=== PATIENT | female | born 1955 | race Caucasian/White ===

== ENCOUNTER → 2017-07-04 08:02 | Outpatient (CLI) | payer OTHER, SELFPAY ==
--- NOTE | 2017-07-04 10:58 | PFTCOMP ---
COMPLETE PULMONARY FUNCTION TEST INTERPRETATION Brief HPI: Patient is a 62 year old female, currently under the care of myself, who presents to [facility] for complete pulmonary function tests secondary to diagnosis of sarcoidosis. Respiratory therapist reports good effort and reproducible results. Interpretation: Forced expiration spirometry shows no large airways obstructive ventilatory defect with an FEV1 of 80% predicted. There is no significant bronchodilator response by ATS criteria. Spirograms are of good quality and plateau normally. The respiratory flow volume loop shows a normal pattern. Lung volumes by body plethysmography show a normal total lung capacity at 8.44 L, 82% predicted. All other lung volumes are within normal limits. Diffusion capacity by carbon monoxide is at the lower limit of normal at 66% predicted. The airway resistance is normal. No previous pulmonary function tests were available for review. Impression: Grossly normal pulmonary function tests, but lung volumes and diffusing capacity are at the lower limit of normal and should likely be followed serially.
--- NOTE | 2017-07-04 11:01 | PFTCOMP_ITS ---
COMPLETE PULMONARY FUNCTION TEST INTERPRETATION Brief HPI: Patient is a 62 year old female, currently under the care of myself, who presents to [facility] for complete pulmonary function tests secondary to diagnosis of sarcoidosis. Respiratory therapist reports good effort and reproducible results. Interpretation: Forced expiration spirometry shows no large airways obstructive ventilatory defect with an FEV1 of 80% predicted. There is no significant bronchodilator response by ATS criteria. Spirograms are of good quality and plateau normally. The respiratory flow volume loop shows a normal pattern. Lung volumes by body plethysmography show a normal total lung capacity at 8.44 L , 82% predicted. All other lung volumes are within normal limits. Diffusion capacity by carbon monoxide is at the lower limit of normal at 66% predicted. The airway resistance is normal. No previous pulmonary function tests were available for review. Impression: Grossly normal pulmonary function tests, but lung volumes and diffusing capacity are at the lower limit of normal and should likely be followed serially.
== END ==
PROVIDERS: Family Provider Family Medicine; PCP Family Medicine; Visit Provider Internal Medicine Critical Care Medicine
DX: D86.0 Sarcoidosis of lung (principal); M05.79 Rheumatoid arthritis with rheumatoid factor of multiple sites without organ or systems involvement
CPT/HCPCS: 94060; 94726; 94729

== ENCOUNTER → 2017-07-24 08:01 | Outpatient (CLI) | payer OTHER, SELFPAY ==
--- NOTE | 2017-07-24 | BI_ITS ---
MAMMOGRAPHY - UNILATERAL SCREENING: LEFT BREAST REASON FOR EXAM: Female, 62 years old. Routine annual screening examination (unilateral). PERTINENT HISTORY: Personal history of breast cancer. Prior right mastectomy and radiation treatment. TECHNIQUE: Digital unilateral breast aysha (3D mammographic acquisition) in the CC and MLO projections. 2-D mediolateral oblique (MLO) and craniocaudad (CC) views of both breasts were obtained. CAD: Full Field Digital Mammography with Computer Added Detection was performed. COMPARISON: Comparison is made with prior study dated May 15, 2016 and May 15, 2015. FINDINGS: Breast Composition: There are scattered areas of fibroglandular density. There are no dominant masses or suspicious calcifications. No other significant abnormalities are identified. There has been no significant change since the prior study. BI/UNILAT LT SCRN W/CAD IMPRESSION: Stable unilateral screening mammogram. Yearly follow-up mammogram recommended. (A) ASSESSMENT CATEGORY: BIRADS Category 1: Negative. A letter regarding these results will be sent to the patient by the facility within 30 days. Approximately 10% of breast cancers are not detected by mammography. A normal mammogram should not delay biopsy of a clinically suspicious abnormality. [id number] Electronically Signed: Luis Miguel Gustafson MD at 9:26 EDT Tel [phone], Service support ,
== END ==
PROVIDERS: Family Provider Family Medicine; PCP Family Medicine; Visit Provider Family Medicine
DX: Z01.419 Encounter for gynecological examination (general) (routine) without abnormal findings (principal); Z12.31 Encounter for screening mammogram for malignant neoplasm of breast
CPT/HCPCS: 77061; 77063; 77067; G0279

== ENCOUNTER → 2017-08-01 09:58 | Outpatient (CLI) | payer OTHER, SELFPAY ==
[2017-08-01 13:13] LABS: T4 Total, Thyroxin 9.8 ug/dL (4.8-13.9); Thyroid Stim Hormone (TSH) 3.59 uIU/mL (0.358-3.74)
== END ==
PROVIDERS: Family Provider Family Medicine; PCP Family Medicine; Visit Provider Family Medicine
DX: E03.9 Hypothyroidism, unspecified (principal)
CPT/HCPCS: 36415; 84436; 84443

== ENCOUNTER → 2017-12-08 16:48 | Outpatient (CLI) | payer OTHER, SELFPAY ==
--- NOTE | 2017-12-08 16:53 | RAD_ITS ---
STUDY: X-RAY CHEST REASON FOR EXAM: Female, 62 years old. Chest pain, sarcoid TECHNIQUE: Frontal and lateral views of the chest were obtained. COMPARISON: May 23, 2016 FINDINGS: The lungs are underaerated. There are no focal airspace opacities. There is no demonstrated pleural abnormality. The cardiac silhouette is normal in size allowing for low volume inspiration. The mediastinum and hilar regions are unremarkable. Normal visualized pulmonary arteries. There is atherosclerotic calcification of the thoracic aorta. There are diffuse degenerative changes of the visualized spine. There is dextroscoliosis of the thoracic spine. The visualized ribs, clavicles, and shoulders are unremarkable. There are surgical clips again seen in the right upper abdomen. Surgical clips are again seen over the right lower chest. RAD/Chest PA and Lateral IMPRESSION: No acute cardiopulmonary abnormalities. Electronically Signed: Terri Wong MD at 0:13 EDT Tel Direct: [phone], Service support ,
[2017-12-08 17:34] LABS: Absolute Lymphocyte Count 0.79 X10^3/ul (0.83-4.51); Absolute Neutrophil Count 3.2 X10^3/uL (2.0-7.7); Basophil# 0.03 X10^3/uL; Basophil% 0.6 % (0-1); Eosinophil# 0.07 X10^3/uL; Eosinophils% 1.5 % (0-5); Hematocrit 41.5 % (37-47); Hemoglobin 13.2 g/dl (12.0-15.0); Lymphocyte # 0.79 X10^3/ul (4.0); Lymphocyte % 17.1 % (19-41); Mean Corp Hgb Conc 31.8 g/gl (32-36); Mean Corpuscular Hgb 29.8 pg (27.0-32.0); Mean Corpuscular Volume 93.7 fL (81-99); Mean Platelet Vol. 9.3 fl (6.2-12.0); Monocyte# 0.49 X10^3/uL; Monocyte% 10.6 % (0-10); Neutrophil # 3.24 X10^3/uL (2.7-7.7); Platelet Count 198 K/mm3 (150-450); RBC Distribution Width CV 12.9 % (11.6-14.6); RBC Distribution Width SD 44.1 fl (35.1-43.9); Red Blood Count 4.43 M/mm3 (4.2-5.4); White Blood Count 4.6 K/mm3 (4.4-11.0)
[2017-12-08 17:37] LABS: POSITIVE COUNT NO; POSITIVE DIFFERENTIAL NO; POSITIVE MORPHOLOGY NO
[2017-12-08 17:51] LABS: Erythrocyte Sedimentation Rate 29 mm/hr (0-30)
[2017-12-08 18:41] LABS: ALB/GLOB Ratio 0.9 RATIO (0.9-2.4); AST(SGOT) 29 U/L (15-37); Alanine Aminotransfer ALT/SGPT 28 U/L (13-56); Albumin, Serum 3.5 g/dL (3.2-5.0); Alkaline Phosphatase 89 U/L (45-117); Anion Gap 7 (5-15); BUN 16 mg/dL (7-18); BUN/Creat Ratio 23.5 RATIO (10-20); CRP < 2.90 mg/L (0.0-3.0); Calcium,Total 8.6 mg/dL (8.5-10.1); Chloride 103 mmol/L (98-107); Creatinine, Serum 0.68 mg/dL (0.55-1.02); EST Glomerular Filtration Rate 93 mL/min (>60); Est Glom Filt Rate - Afr Amer 112 mL/min (>60); Glucose 95 mg/dL (74-106); Potassium 4.5 mmol/L (3.5-5.1); Protein, Total 7.5 g/dL (6.4-8.2); Sodium Level 137 mmol/L (136-145)
== END ==
PROVIDERS: Family Provider Family Medicine; PCP Family Medicine; Referring Provider Family Medicine; Visit Provider Family Medicine
DX: D86.9 Sarcoidosis, unspecified (principal)
CPT/HCPCS: 36415; 71046; 80053; 84443; 85025; 85652; 86140

== ENCOUNTER → 2018-02-11 11:24 | Outpatient (CLI) | payer OTHER, SELFPAY ==
--- NOTE | 2018-02-11 11:41 | BD_ITS ---
STUDY: DUAL ENERGY X-RAY ABSORPTIOMETRY / DXA REASON FOR EXAM: Female, 62 years old. Early menopause. Loss of height. TECHNIQUE: Bone Mineral Density (BMD) measurements of lumbar spine and bilateral hips were obtained. COMPARISON: Comparison is made with prior study dated January 23, 2016. FINDINGS: Lumbar Spine (L1-L4): g/cm2 (1.091) / T-score (-0.9) / Z-score (0.5) Findings are suggestive of normal bone density with a low fracture risk. Increased thoracic kyphosis. Left Femur Total: g/cm2 (0.778) / T-score (-1.8) / Z-score (-0.8) Left Femoral Neck: g/cm2 (0.746) / T-score (-2.1) / Z-score (-0.8) Right Femur Total: g/cm2 (0.791) / T-score (-1.7) / Z-score (-0.7) Right Femoral Neck: g/cm2 (0.733) / T-score (-2.2) / Z-score (-0.8) The T-Scores on the most recent prior examination were: Lumbar Spine (L1-L4): There has been improvement of bone density since the previous examination. Left Femur Total: which represents an improvement of 7.8%. Right Femur Total: which represents an improvement of 11.4%. BD/Dexa Bone Density Study IMPRESSION: The patient is considered osteopenic as outlined below according to World Juan Organization (WHO) criteria with a moderate fracture risk. There has been improvement of bone density since the previous examination. Reference Information: The T-score is the number of standard deviations above or below the standard which is normal for young adults at their peak bone mineral density. The World Health Organization (WHO) interprets the T-scores as follows: Above -1 Normal bone density Between -1 and -2.5 Osteopenia Equal to / or below -2.5 Osteoporosis As a practical clinical guideline, osteopenia may be graded as follows: Mild -1 through -1.5 Moderate -1.6 through -2.0 Severe -2.1 through -2.4 The Z-score is the number of standard deviations above or below age-matched controls. A Z-score of less than -1.5 would be considered abnormal. References: 1. NIH Osteoporosis and Related Bone Diseases http://www.osteo.org 2. International Society for Clinical Densitometry http://www.iscd.org 3. National Osteoporosis Foundation http://www.nof.org Electronically Signed: Luis Miguel Gustafson MD at 8:59 EST Tel [phone], Service support ,
--- OUTSIDE RECORDS SUMMARY | 2018-03-30 14:24 | XMS RPT_ITS ---
:1955 Author Organization OHIP Support Name Relationship Address Phone COW Unavailable [address] + [place] [address] ELIZONDO, ERVIL Unavailable [address] + [place] [address] ELIZONDO, CHUCK Unavailable Unavailable + COW Unavailable [address] + [place] [address] ELIZONDO, ERVIL Unavailable [address] + [place] [address] ELIZONDO, CHUCK Unavailable . + [place] [address] COW Unavailable [address] + [place] [address] ELIZONDO, ERVIL Unavailable [address] + [place] [address] ELIZONDO, CHUCK Unavailable Unavailable + [place] [address] + [place] [address] ELIZONDO, ERVIL Unavailable [address] + [place] [address] ELIZONDO, CHUCK Unavailable [address] + [place] [address] + [place] [address] ELIZONDO, ERVIL Unavailable [address] + [place] [address] ELIZONDO, CHUCK Unavailable [address] + [place] [address] + [place] [address] ELIZONDO, ERVIL Unavailable [address] + [place] [address] ELIZONDO, CHUCK Unavailable [address] + [place] [address] + [place] [address] ELIZONDO, ERVIL Unavailable [address] + [place] [address] ELIZONDO, CHUCK Unavailable [address] + [place] [address] + [place] [address] ELIZONDO, ERVIL Unavailable [address] + [place] [address] ELIZONDO, CHUCK Unavailable [address] + [place] [address] + [place] [address] ELIZONDO, ERVIL Unavailable [address] + [place] [address] ELIZONDO, CHUCK Unavailable [address] + [place] [address] Care Team Providers Name Role Phone KARINA DE LEON Referring Unavailable KARINA DE LEON Referring Unavailable AL ZAYAS (PA) Referring Unavailable MARYJANE BOWER (CRYPTOLOGIC SUPERVISOR) Referring Unavailable KARINA DE LEON Referring Unavailable KARINA DE LEON Referring Unavailable KARINA DE LEON Referring Unavailable KARINA DE LEON Referring Unavailable KARINA DE LEON Attending Unavailable KARINA DE LEON Referring Unavailable MARYJANE BOWER (CRYPTOLOGIC SUPERVISOR) Referring Unavailable HEMA BARRAZA (PA) Referring Unavailable KARINA DE LEON Attending Unavailable KARINA DE LEON Referring Unavailable MARYJANE BOWER (CRYPTOLOGIC SUPERVISOR) Attending Unavailable KAT MILTON (PT) Attending Unavailable KARINA DE LEON Referring Unavailable KARINA DE LEON Referring Unavailable MARYJANE BOWER (CRYPTOLOGIC SUPERVISOR) Referring Unavailable KARINA DE LEON Referring Unavailable KAT MILTON (PT) Attending Unavailable KARINA DE LEON Referring Unavailable LEMON, KAT (PT) Attending Unavailable HALEY, KARINA Nieto Referring Unavailable LEMON, KAT (PT) Attending Unavailable HALEY, KARINA Nieto Referring Unavailable HALEY, KARINA Nieto Referring Unavailable LEMON, KAT (PT) Attending Unavailable HALEY, KARINA Nieto Referring Unavailable LEMON, KAT (PT) Attending Unavailable HALEYKARINA MUNIZ Referring Unavailable JORGE MARTINEZ Referring Unavailable JORGE MARTINEZ Attending Unavailable HALEYKARINA MUNIZ Referring Unavailable MARYJANE BOWER (CRYPTOLOGIC SUPERVISOR) Referring Unavailable HALEY, KARINA Nieto Referring Unavailable MARTINEZ, JORGE Referring Unavailable HALEY, KARINA Nieto Referring Unavailable HALEY, KARINA Nieto Referring Unavailable HALEY, KARINA Nieto Referring Unavailable IRENE DE PAZ (PA) Attending Unavailable JORGE MARTINEZ Referring Unavailable LEMON, KAT (PT) Attending Unavailable HALEYKARINA Referring Unavailable LEMON, KAT (PT) Attending Unavailable HALEYKARINA MUNIZ Referring Unavailable LEMON, KAT (PT) Attending Unavailable HALEYKARINA Referring Unavailable LEMON, KAT (PT) Attending Unavailable HALEY, KARINA Nieto Referring Unavailable HALEY, KARINA Nieto Referring Unavailable LEMON, KAT (PT) Attending Unavailable HALEYKARINA Referring Unavailable HALEY, KARINA Nieto Referring Unavailable HALEY, KARINA Nieto Attending Unavailable HALEYKARINA Referring Unavailable LEMON, KAT (PT) Attending Unavailable HALEYKARINA Referring Unavailable LEMON, KAT (PT) Attending Unavailable HALEYKARINA DE LEON Referring Unavailable JORGE MARTINEZ Attending Unavailable JORGE MARTINEZ Referring Unavailable JORGE MARTINEZ Referring Unavailable LEMON, KAT (PT) Attending Unavailable HALEYKARINA Referring Unavailable LEMON, KAT (PT) Attending Unavailable HALEYKARINA MUNIZ Referring Unavailable LEMON, KAT (PT) Attending Unavailable HALEYKARINA DE LEON Referring Unavailable BRANDON MACIAS Attending Unavailable LEMON, KAT (PT) Attending Unavailable HALEYKARINA Referring Unavailable MARYJANE BOWER (CRYPTOLOGIC SUPERVISOR) Referring Unavailable CHUCK HUNTER Attending Unavailable MARYJANE BOWER (CRYPTOLOGIC SUPERVISOR) Referring Unavailable LEMON, KAT (PT) Attending Unavailable HALEYKARINA MUNIZ Referring Unavailable LEMON, KAT (PT) Attending Unavailable HALEY, KARINA J Referring Unavailable LEMON, KAT (PT) Attending Unavailable HALEY, KARINA J Referring Unavailable LEMON, KAT (PT) Attending Unavailable HALEY, KARINA J Referring Unavailable LEMON, KAT (PT) Attending Unavailable HALEYKARINA J Referring Unavailable LEMON, KAT (PT) Attending Unavailable HALEY, KARINA J Referring Unavailable LEMON, KAT (PT) Attending Unavailable HALEY, KARINA J Referring Unavailable LEMON, KAT (PT) Attending Unavailable HALEY, KARINA J Referring Unavailable LEMON, KAT (PT) Attending Unavailable HALEY, KARINA J Referring Unavailable HALEY, KARINA J Referring Unavailable HALEY, KARINA J Referring Unavailable HALEY, KARINA J Referring Unavailable HALEY, KARINA J Referring Unavailable MARYJANE BOWER (CRYPTOLOGIC SUPERVISOR) Referring Unavailable HALEY, KARINA J Referring Unavailable LEMON, KAT (PT) Attending Unavailable HALEYKARINA DE LEON Referring Unavailable MARYJANE BOWER (CRYPTOLOGIC SUPERVISOR) Attending Unavailable CHUCK HUNTER Referring Unavailable MARYJANE BOWER (CRYPTOLOGIC SUPERVISOR) Referring Unavailable LEMON, KAT (PT) Attending Unavailable HALEYKARINA J Referring Unavailable LEMON, KAT (PT) Attending Unavailable HALEYKARINA DE LEON J Referring Unavailable LEMON, KAT (PT) Attending Unavailable HALEYKAIRNA DE LEON Referring Unavailable BRANDON MACIAS Attending Unavailable HALEY, KARINA J Referring Unavailable HALEY, KARINA Nieto Referring Unavailable LEMON, KAT (PT) Attending Unavailable HALEYKARINA DE LEON J Referring Unavailable MARYJANE BOWER (CRYPTOLOGIC SUPERVISOR) Attending Unavailable JORGE MARTINEZ Admitting Unavailable JORGE MARTINEZ Attending Unavailable MARYJANE BOWER (CRYPTOLOGIC SUPERVISOR) Referring Unavailable Donnell Valdivia Attending Unavailable Jolliff, Elisa Referring Unavailable Jolliff, Elisa Primary Care Unavailable Donnell Valdivia Attending Unavailable Skip, Donnell Referring Unavailable Jolliff, Elisa Primary Care Unavailable SkipDonnell pendleton Attending Unavailable Jolliff, Elisa Attending Unavailable Jolliff, Elisa Referring Unavailable Jolliff, Elisa Primary Care Unavailable Jolliff, Elisa Attending Unavailable Jolliff, Elisa Primary Care Unavailable SkipDonnell pendleton Attending Unavailable Jolliff, Elisa Referring Unavailable Jolliff, Elisa Attending Unavailable Jolliff, Elisa Referring Unavailable Jolliff, Elisa Primary Care Unavailable SkipDonnell pendleton Attending Unavailable Elisa Baxter Referring Unavailable Elisa Baxter Attending Unavailable Elisa Baxter Primary Care Unavailable Elisa Baxter Referring Unavailable PROBLEMS PROBLEMS DATE TYPE CONDITION / CODE ATTENDING STATUS SOURCE 12/08/2017 Unknown D86.9 - Sarcoidosis, Elisa Baxter Active [facility] unspecified / Community D86.9(ICD-10) Hospital Repository 09/05/2017 Active Primary NA Active [facility]oarthritis, [facility] Main right hand / [place] M19.041(ICD-10) Repository 10/16/2017 Active Other specified NA Active [facility] postprocedural [facility] Main states / [place] Z98.890(ICD-10) Repository 08/25/2017 Active Pain in right JORGE MARTINEZ Active [facility] finger(s) / Clinic Other M79.644(ICD-10) [place] Repository 08/25/2017 Active Pain in right hand / NA Active [facility] M79.641(ICD-10) Clinic Main [place] Repository 08/25/2017 Active Pain in left hand / NA Active [facility] M79.642(ICD-10) Clinic Main [place] Repository 07/09/2017 Unknown D86.0 - Sarcoidosis SkipDonnell pendleton Active [facility] of lung / Community D86.0(ICD-10) Hospital Repository 07/02/2017 Active Pain in left ankle NA Active [facility] and joints of left Clinic Main foot / [place] M25.572(ICD-10) Repository 05/29/2017 Unknown M05.79 - Rheumatoid SkipDonnell pendleton Active [place] arthritis with Community rheumatoid factor of Hospital multiple sites Repository without organ or systems involvement / M05.79(ICD-10) 05/21/2017 Active Post-traumatic NA Active [facility]oarthritis, left Clinic Main ankle and foot / [place] M19.172(ICD-10) Repository 04/28/2017 Active Rheumatoid arthritis NA Active [facility] without rheumatoid Clinic Main factor, multiple [place] sites / Repository M06.09(ICD-10) 01/08/2017 Active Primary NA Active [facility] osteoarthritis, Clinic Main unspecified ankle [place] and foot / Repository M19.079(ICD-10) 04/11/2017 Active Unknown / NA Active [facility] UNK(Unknown) [facility] Main [place] Repository PROCEDURES PROCEDURES No Procedure Records FoundRESULTS RESULTS PROGRESS Observed: 03/13/2018 Status: COMPLETED Source: [place] 9:13 AM CLINIC OTHER CAMPUS REPOSITORY HNO ID: [id number] Author: Lilian Briggs Service: (none) Author Type: Occupational Therapist Type: Progress Notes Filed: 03/13/2018 11:55 AM Note Text: [facility] PHYSICAL CAPACITY EVALUATION Renae Elizondo [id number] 03/13/2018 Staff Command And Control Officer: SHARDA Ladd Referring Physician: Maryjane Bower (Produce Department Supervisor), * DIAGNOSIS: Rheumatoid arthritis of multiple sites with negative rheumatoid factor (hcc) (primary encounter diagnosis) PURPOSE OF THIS EVALUATION : This evaluation was designed to Assist physician in making recommendations regarding client's application for disability. The client was instructed in the purpose and contents of the evaluation before testing. The client was informed of her ability and responsibility to modify, limit, or refuse any part of the evaluation. Functional Capacity Evaluation completed today. See scanned document tab for complete detailed report. Summary cover letter included below. Education: Learning preferences: Explanation and Demonstration Barriers: No barriers Learning/educational needs: test instructions Education Provided: See Treatment Below Audience: Patient Method of education: Explanation and Demonstration Response: Applied knowledge and Demonstrated skill Billing: Luigi Valdez: Physical Capacity Evaluation ([id number]): 1:1 time 145 minutes (10 units: 143-157 mins) Total time: 145 minutes SHARDA Ladd CNTHERAPY Observed: 03/13/2018 Status: COMPLETED Source: [place] 9:00 AM [facility] REPOSITORY OT/PT/Speech Visit (OTSPO) RENAE ELIZONDO ([id number]) 1955 F Date Time Provider Department 03/13/18 9:00 AM LILIAN BRIGGS OT Date Time Provider Department Center 03/13/2018 9:00 AM [id number] BRIGGS *OTSPO [facility] Reason for Visit: Functional Capacity Eval [3549] Primary Visit Diagnosis:Rheumatoid arthritis of multiple sites with negative rheumatoid factor ([facility]) [M06.09] Allergies As of Date: 03/13/2018 Noted Allergy Reaction ADHESIVE TAPE (ROSINS) 02/13/2006 2 - Rash Comments: tore skin/blisters MORPHINE 02/05/2006 5 - Intolerance Comments: vomiting, shaking. NSAIDS (NON-STEROIDAL ANTI-INFLAM*10/05/2014 11 - Vomiting VASOTEC (ENALAPRIL MALEATE) 09/08/2008 Comments: nausea/doesn't work Date Reviewed: 03/05/2018 Reviewed by: Marie Ricardo Ma - Fully Assessed Prescriptions as of 03/13/2018 Sig: CYCLOBENZAPRINE 10 MG TABLET Take 1 tablet by mouth twice * METHYLPREDNISOLONE 4 MG TABLE* Take 1 tablet by mouth as dir* LEVOTHYROXINE 75 MCG TABLET Take 1 tablet by mouth daily * LEFLUNOMIDE 20 MG TABLET Take 1 tablet by mouth once d* HYDROXYCHLOROQUINE 200 MG TAB* Take 1 tablet by mouth twice * DICLOFENAC 1 % TOPICAL GEL apply topically 4 grams to fo* CHOLECALCIFEROL (VITAMIN D3) * Take 2,000 Units by mouth onc* PROLIA SUBCUTANEOUS Inject subcutaneously once e* CELECOXIB 200 MG CAPSULE Take 200 mg by mouth as neede* MAGNESIUM OXIDE 500 MG TABLET Taking 250mg. Take two tablet* ACETAMINOPHEN 500 MG TABLET Take 500 mg by mouth every 8 * CPAP CHIN STRAP, USED WITH CPAP DE* FLUTICASONE 50 MCG/ACTUATION * Use 1 [place] in each nostril d* FERROUS SULFATE 325 MG (65 MG* Take 325 mg by mouth daily wi* ASCORBIC ACID (VITAMIN C) 500* Take 500 mg by mouth three ti* CPAP AutoPAP 10-20 cmH2O, suitable* CYCLOBENZAPRINE 10 MG TABLET CLOBETASOL 0.05 % TOPICAL CRE* as directed * GABAPENTIN 300 MG CAPSULE Take 300 mg by mouth three ti* * PROMETHAZINE 25 MG TABLET Take one(1) tablet every four* * ATIVAN 1 MG TABLET takes 1/2 tab as needed * FENTANYL 50 MCG/HR TRANSDERMA* Apply as directed. Change pat* * B COMPLEX 1 TABLET Take one(1) tablet daily. * MULTIVITAMIN,TX-MINERALS TABL* 1 tab daily Progress Notes: Lilian Briggs OTR/L 03/13/2018 11:55 AM Signed [facility] PHYSICAL CAPACITY EVALUATION Renae Elizondo [id number] 03/13/2018 Staff Command And Control Officer: SHARDA Ladd Referring Physician: Maryjane Bower (Angel), * DIAGNOSIS: Rheumatoid arthritis of multiple sites with negative rheumatoid factor (hcc) (primary encounter diagnosis) PURPOSE OF THIS EVALUATION : This evaluation was designed to Assist physician in making recommendations regarding client's application for disability. The client was instructed in the purpose and contents of the evaluation before testing. The client was informed of her ability and responsibility to modify, limit, or refuse any part of the evaluation. Functional Capacity Evaluation completed today. See scanned document tab for complete detailed report. Summary cover letter included below. Education: Learning preferences: Explanation and Demonstration Barriers: No barriers Learning/educational needs: test instructions Education Provided: See Treatment Below Audience: Patient Method of education: Explanation and Demonstration Response: Applied knowledge and Demonstrated skill Billing: Luigi Valdez: Physical Capacity Evaluation ([id number]): 1:1 time 145 minutes (10 units: 143-157 mins) Total time: 145 minutes SHARDA Ladd PROGRESS Observed: 03/05/2018 Status: COMPLETED Source: [place] 4:31 PM [facility] [place] REPOSITORY O ID: [id number] Author: Maryjane Peña (Angel) Sathish Service: (none) Author Type: Nurse Practitioner Type: Progress Notes Filed: 03/06/2018 8:39 AM Note Text: CC: SAME DAY APPOINTMENT FOR BACK PAIN March 05, [address] Hunter Prior Pertinent History Pulmonary sacroid-> Abnormal CT Chest with Multiple Scattered Nodules seen on the right lung on CT Chest September 16, 2014 Received steroids at that time. Complicated by -> Hx of poorly differentiated ductal carcinoma of the right breast diagnosed in January 2006 s/p Right Modified Radical mastectomy August 27, 2006 s/p neoadjuvant chemotherapy AND RT to chest wall and axilla 12/01/06. Sacroid, (known prior). Arava was initiated 01/2016 jnt pain. 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 Ankle surgery done-> left TN fusion 02/17/2017 DDD 01/2017 we did her x rays-> IMPRESSION: Diffuse thoracic spondylosis, dorsolumbar spondylosis, ?with moderate thoracic kyphosis. ?Multilevel lumbar degenerative facet arthritis with 6 mm degenerative spondylolisthesis of L4 and 3 mm degenerative spondylolisthesis of L5 Bone health- Treatment prolia (not by Rheum), DXA ordered in 2015 (none prior) The prolia is given by her PCP.She had the DXA done last year by PCP and was told + osteoporosis. Takes a calcium supplement and Mag supplements. Treatment Arava 20 mg/d + Plaquenil 200 mg BID. Reason for visit today is acute back pain-> here today for same day appointment for neck and shoulder pain, ongoing since 02/23- has tried heat and stretching without much benefit. she has tried tylenol, can't take nsaids due to GI upset. not on flexeril or steroids having some tingling of fingertips on the right side was very active over the holidays and feels she overdid it. Medications Current Outpatient Prescriptions: levothyroxine (SYNTHROID) 75 mcg tablet Take 1 tablet by mouth daily before breakfast. leflunomide (ARAVA) 20 mg tablet Take 1 tablet by mouth once daily. hydroxychloroquine (PLAQUENIL) 200 mg tablet Take 1 tablet by mouth twice daily. diclofenac sodium (VOLTAREN) 1 % topical gel apply topically 4 grams to foot four times a day cholecalciferol (VITAMIN D-3) 2,000 unit tablet Take 2,000 Units by mouth once daily. DENOSUMAB (PROLIA SUBCUTANEOUS) Inject subcutaneously once every 6 months. celecoxib (CELEBREX) 200 mg capsule Take 200 mg by mouth as needed. Magnesium Oxide 500 mg tab Taking 250mg. Take two tablets by mouth once daily. acetaminophen (TYLENOL EXTRA STRENGTH) 500 mg tablet Take 500 mg by mouth every 8 hours as needed. CPAP CHIN STRAP, USED WITH CPAP DEVICE fluticasone (FLONASE) 50 mcg/actuation nasal spray Use 1 [place] in each nostril daily at bedtime. ferrous sulfate 325 mg (65 mg iron) tablet Take 325 mg by mouth daily with breakfast. ascorbic acid (VITAMIN C) 500 mg tablet Take 500 mg by mouth three times daily. CPAP AutoPAP 10-20 cmH2O, suitable mask, humidity, filters. Lifetime supplies. Dx: 327.23. Fax compliance rpt to [phone] in 4-6 weeks. cyclobenzaprine (FLEXERIL) 10 mg tablet CLOBETASOL 0.05 % cream as directed gabapentin 300 mg capsule Take 300 mg by mouth three times daily. PROMETHAZINE 25 MG TAB Take one(1) tablet every four(4) to six(6) hours as needed for nausea. lorazepam(ATIVAN 1 MG TAB) takes 1/2 tab as needed fentanyl 50 mcg/hr TRANSDERM. PT72 Apply as directed. Change patch every 3 days. B COMPLEX 1 TAB Take one(1) tablet daily. MULTIVITAMIN,TX-MINERALS TAB 1 tab daily No current facility-administered medications for this visit. REVIEW OF SYSTEMS: March 05, 2018 CONSTITUTIONAL: Fever: No Fatigue: Yes Pain: Yes EYES: Pain: Yes Redness: No Loss of vision: No Dryness: Yes EAR, NOSE, MOUTH, THROAT: Nose bleeds: No Hearing loss: No Sores in mouth: No Swallowing problems: Yes Dry mouth: Yes CARDIOVASCULAR: Chest pain: No Swelling in the feet or legs: Yes RESPIRATORY: Shortness of breath: No Pain with breathing: No Chronic cough: No Coughing up blood: No , GASTROINTESTINAL: Heartburn: No Nausea: Yes Diarrhea: Yes Blood in the stool or black stool: No Abdominal pain: Yes GENITOURINARY: Blood in urine: No Pain or burning on urination: No] MUSCULOSKELETAL: Joint pain: Yes Joint swelling: Yes Morning stiffness in joints: Yes Muscle weakness: Yes Back pain: Yes SKIN: Rashes: No Sun sensitive rashes: Yes Color changes of hands or feet in the cold: Yes Hair loss: Yes Nail changes: No NEUROLOGICAL: Headaches: Yes Dizziness: Yes Numbness or tingling: Yes Memory loss: Yes Seizures: No HEMATOLOGIC/LYMPHATIC: Swollen glands: No Anemia: Yes ALLERGIES/IMMUNOLOGIC: Allergies (other than medications): Yes Increased susceptibility to infection: No KNOWN MEDICAL CONDITIONS: Diabetes: No Thyroid disease: Yes High blood pressure: No Pertinent PFSH: FAMILY HISTORY Problem Relation Age of Onset - Diabetes Mother - Colon Cancer Mother pancreatic cancer - Cancer Mother pancreatic - Colon Cancer Father at age 75 or 76 - Cancer Father - other (Parkinson's disease) Father - Diabetes Brother - Diabetes Paternal Grandmother - Diabetes Maternal Grandmother - Ischemic Heart Disease Maternal Grandfather - Hypertension Sister - Hypertension Brother - Stroke Paternal Grandfather - Allergies Sister - Allergies Brother - Cancer Sister uterine/ lung/ liver - Cancer Brother melanoma/ brain/ tongue PAST MEDICAL HISTORY Diagnosis Date - Anemia - Hypothyroidism - Malignant neoplasm of breast (female), unspecified site - Obstructive sleep apnea - Other and unspecified diseases of upper respiratory tract - RA (rheumatoid arthritis) (HCC) - S/P gastric bypass - Sarcoidosis PAST SURGICAL HISTORY Procedure Laterality Date - APPENDECTOMY 2000 Done with gastric bypass - COLONOSCOP W/ OR W/O BRSH SPEC 12/05/2008,12 Colonoscopy - FUSION FINGER JOINT Right 09/05/2017 Right index and middle fingers DIP joint fusion, Right 5th finger PIP joint fusion - GASTRIC BYPASS-MORBID OBESITY 2000 - MASTECTOMY, MODIFIED RADICAL 08/27/2006 Right MRM - PAST SURGICAL HISTORY OF 2000 venous ligation leg - PAST SURGICAL HISTORY OF Carpal Tunnel - PAST SURGICAL HISTORY OF Left thumb repair - PAST SURGICAL HISTORY OF port acath LEFT - PAST SURGICAL HISTORY OF removal of port - PAST SURGICAL HISTORY OF Left 01/2017 lt 2nd AND 3rd digit repair - OR ANESTH,REPAIR LO ABD HERNIA NOS - OR ANESTH,VAGINAL HYSTERECTOMY 2003 BSO - REMOVAL GALLBLADDER 1993 Cholecystectomy Social History Marital status: Spouse name: Years of education: Number of children: Social History Main Topics Smoking status: Never Smoker Smokeless tobacco: Never Used Alcohol use: Yes Comment: occasionally glass wine or mixed drink Drug use: No Sexual activity: Yes Partners with: Male ) LABS Hemoglobin (g/dL) Date Value 02/09/2018 11.5 Hematocrit (%) Date Value 02/09/2018 37.4 WBC (k/uL) Date Value 02/09/2018 3.96 Glucose (mg/dL) Date Value 02/09/2018 102 Potassium (mmol/L) Date Value 02/09/2018 4.2 Sodium (mmol/L) Date Value 02/09/2018 142 Chloride (mmol/L) Date Value 02/09/2018 103 CO2 (mmol/L) Date Value 02/09/2018 27 Creatinine (mg/dL) Date Value 02/09/2018 0.60 BUN (mg/dL) Date Value 02/09/2018 10 Anion Gap (mmol/L) Date Value 02/09/2018 12 Calcium (mg/dL) Date Value 02/09/2018 9.4 Protein, Total (g/dL) Date Value 02/09/2018 6.9 Albumin (g/dL) Date Value 02/09/2018 3.9 Bilirubin, Total (mg/dL) Date Value 02/09/2018 0.4 Alkaline Phosphatase (U/L) Date Value 02/09/2018 84 AST (U/L) Date Value 02/09/2018 28 ALT (U/L) Date Value 02/09/2018 21 No results found for: WSR No results found for: CRP PHYSICAL EXAM BP 131/80 Pulse 86 Ht 152.4 cm (5') Wt 94.8 kg (209 lb) BMI 40.82 kg/m? Physical Exam: APPEARANCE Well appearing, alert, in no acute distress, well-hydrated, well nourished. EXTREMITIES + lumbar low back pain and tight c spine muscles , OA of hands- some fullness of 1, 2 mcp bilaterally, s/p fusion left hand 3rd digit. Left foot swollen - entire foot- some rom with dorsiflexion, no redness NEURO Awake, alert and oriented x 3, Cranial nerves II-XII grossly intact, Normal gait and No involuntary motions. SKIN Skin color, texture, turgor normal, no suspicious rashes or lesions MEDICAL DECISION MAKING Assessment: (M06.09) Rheumatoid arthritis of multiple sites with negative rheumatoid factor (HCC) (primary encounter diagnosis) Comment: Low back pain/c spine pain Ok for medrol dose pack + 7 days of flexeril Rest Heating pad - She brings with her disability forms that require a functional capacity evaluation- will arrange. Plan: PHYSICAL PERFORMANCE TEST Available laboratories were reviewed with the patient. Radiographs were reviewed at todays visit. PLAN: as noted above 15 minutes spent [id number] with the patient during this office visit during which counseling or coordination of care activities account for more than 50 percent of this office visit. Maryjane Bower RN CREDIT SPECIALIST CNOV Observed: 03/05/2018 Status: COMPLETED Source: [place] 4:10 PM [facility] [place] REPOSITORY Office Visit (RHEMARTINEZW) RENAE ELIZONDO ([id number]) 1955 F Date Time Provider Department 03/05/18 4:10 PM MARYJANE BOWER (CRYPTOLOGIC SUPERVISOR) BRIAN During your visit today, we recorded the following information about you: Pulse Blood pressure Weight Height 86/minute 131/80 94.8 kg 1.524 m Maryjane Bower RN EMPLOYEE BENEFITS DIRECTOR.CREDIT SPECIALIST 03/06/2018 8:39 AM Signed CC: SAME DAY APPOINTMENT FOR BACK PAIN March 05, [address] Hunter Prior Pertinent History Pulmonary sacroid-> Abnormal CT Chest with Multiple Scattered Nodules seen on the right lung on CT Chest September 16, 2014 Received steroids at that time. Complicated by -> Hx of poorly differentiated ductal carcinoma of the right breast diagnosed in January 2006 s/p Right Modified Radical mastectomy August 27, 2006 s/p neoadjuvant chemotherapy AND RT to chest wall and axilla 12/01/06. Sacroid, (known prior). Arava was initiated 01/2016 jnt pain. 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 Ankle surgery done-> left TN fusion 02/17/2017 DDD 01/2017 we did her x rays-> IMPRESSION: Diffuse thoracic spondylosis, dorsolumbar spondylosis, ?with moderate thoracic kyphosis. ?Multilevel lumbar degenerative facet arthritis with 6 mm degenerative spondylolisthesis of L4 and 3 mm degenerative spondylolisthesis of L5 Bone health- Treatment prolia (not by Rheum), DXA ordered in 2016 (none prior) The prolia is given by her PCP.She had the DXA done last year by PCP and was told + osteoporosis. Takes a calcium supplement and Mag supplements. Treatment Arava 20 mg/d + Plaquenil 200 mg BID. Reason for visit today is acute back pain-> here today for same day appointment for neck and shoulder pain, ongoing since 02/23- has tried heat and stretching without much benefit. she has tried tylenol, can't take nsaids due to GI upset. not on flexeril or steroids having some tingling of fingertips on the right side was very active over the holidays and feels she overdid it. Medications Current Outpatient Prescriptions: levothyroxine (SYNTHROID) 75 mcg tablet Take 1 tablet by mouth daily before breakfast. leflunomide (ARAVA) 20 mg tablet Take 1 tablet by mouth once daily. hydroxychloroquine (PLAQUENIL) 200 mg tablet Take 1 tablet by mouth twice daily. diclofenac sodium (VOLTAREN) 1 % topical gel apply topically 4 grams to foot four times a day cholecalciferol (VITAMIN D-3) 2,000 unit tablet Take 2,000 Units by mouth once daily. DENOSUMAB (PROLIA SUBCUTANEOUS) Inject subcutaneously once every 6 months. celecoxib (CELEBREX) 200 mg capsule Take 200 mg by mouth as needed. Magnesium Oxide 500 mg tab Taking 250mg. Take two tablets by mouth once daily. acetaminophen (TYLENOL EXTRA STRENGTH) 500 mg tablet Take 500 mg by mouth every 8 hours as needed. CPAP CHIN STRAP, USED WITH CPAP DEVICE fluticasone (FLONASE) 50 mcg/actuation nasal spray Use 1 [place] in each nostril daily at bedtime. ferrous sulfate 325 mg (65 mg iron) tablet Take 325 mg by mouth daily with breakfast. ascorbic acid (VITAMIN C) 500 mg tablet Take 500 mg by mouth three times daily. CPAP AutoPAP 10-20 cmH2O, suitable mask, humidity, filters. Lifetime supplies. Dx: 327.23. Fax compliance rpt to [phone] in 4-6 weeks. cyclobenzaprine (FLEXERIL) 10 mg tablet CLOBETASOL 0.05 % cream as directed gabapentin 300 mg capsule Take 300 mg by mouth three times daily. PROMETHAZINE 25 MG TAB Take one(1) tablet every four(4) to six(6) hours as needed for nausea. lorazepam(ATIVAN 1 MG TAB) takes 1/2 tab as needed fentanyl 50 mcg/hr TRANSDERM. PT72 Apply as directed. Change patch every 3 days. B COMPLEX 1 TAB Take one(1) tablet daily. MULTIVITAMIN,TX-MINERALS TAB 1 tab daily No current facility-administered medications for this visit. REVIEW OF SYSTEMS: March 05, 2018 CONSTITUTIONAL: Fever: No Fatigue: Yes Pain: Yes EYES: Pain: Yes Redness: No Loss of vision: No Dryness: Yes EAR, NOSE, MOUTH, THROAT: Nose bleeds: No Hearing loss: No Sores in mouth: No Swallowing problems: Yes Dry mouth: Yes CARDIOVASCULAR: Chest pain: No Swelling in the feet or legs: Yes RESPIRATORY: Shortness of breath: No Pain with breathing: No Chronic cough: No Coughing up blood: No , GASTROINTESTINAL: Heartburn: No Nausea: Yes Diarrhea: Yes Blood in the stool or black stool: No Abdominal pain: Yes GENITOURINARY: Blood in urine: No Pain or burning on urination: No] MUSCULOSKELETAL: Joint pain: Yes Joint swelling: Yes Morning stiffness in joints: Yes Muscle weakness: Yes Back pain: Yes SKIN: Rashes: No Sun sensitive rashes: Yes Color changes of hands or feet in the cold: Yes Hair loss: Yes Nail changes: No NEUROLOGICAL: Headaches: Yes Dizziness: Yes Numbness or tingling: Yes Memory loss: Yes Seizures: No HEMATOLOGIC/LYMPHATIC: Swollen glands: No Anemia: Yes ALLERGIES/IMMUNOLOGIC: Allergies (other than medications): Yes Increased susceptibility to infection: No KNOWN MEDICAL CONDITIONS: Diabetes: No Thyroid disease: Yes High blood pressure: No Pertinent PFSH: FAMILY HISTORY Problem Relation Age of Onset - Diabetes Mother - Colon Cancer Mother pancreatic cancer - Cancer Mother pancreatic - Colon Cancer Father at age 75 or 76 - Cancer Father - other (Parkinson's disease) Father - Diabetes Brother - Diabetes Paternal Grandmother - Diabetes Maternal Grandmother - Ischemic Heart Disease Maternal Grandfather - Hypertension Sister - Hypertension Brother - Stroke Paternal Grandfather - Allergies Sister - Allergies Brother - Cancer Sister uterine/ lung/ liver - Cancer Brother melanoma/ brain/ tongue PAST MEDICAL HISTORY Diagnosis Date - Anemia - Hypothyroidism - Malignant neoplasm of breast (female), unspecified site - Obstructive sleep apnea - Other and unspecified diseases of upper respiratory tract - RA (rheumatoid arthritis) (HCC) - S/P gastric bypass - Sarcoidosis PAST SURGICAL HISTORY Procedure Laterality Date - APPENDECTOMY 2000 Done with gastric bypass - COLONOSCOP W/ OR W/O BRSH SPEC 12/05/2008,12 Colonoscopy - FUSION FINGER JOINT Right 09/05/2017 Right index and middle fingers DIP joint fusion, Right 5th finger PIP joint fusion - GASTRIC BYPASS-MORBID OBESITY 2000 - MASTECTOMY, MODIFIED RADICAL 08/27/2006 Right MRM - PAST SURGICAL HISTORY OF 2000 venous ligation leg - PAST SURGICAL HISTORY OF Carpal Tunnel - PAST SURGICAL HISTORY OF Left thumb repair - PAST SURGICAL HISTORY OF port acath LEFT - PAST SURGICAL HISTORY OF removal of port - PAST SURGICAL HISTORY OF Left 01/2017 lt 2nd AND 3rd digit repair - OR ANESTH,REPAIR LO ABD HERNIA NOS - OR ANESTH,VAGINAL HYSTERECTOMY 2003 BSO - REMOVAL GALLBLADDER 1993 Cholecystectomy Social History Marital status: Spouse name: Years of education: Number of children: Social History Main Topics Smoking status: Never Smoker Smokeless tobacco: Never Used Alcohol use: Yes Comment: occasionally glass wine or mixed drink Drug use: No Sexual activity: Yes Partners with: Male ) LABS Hemoglobin (g/dL) Date Value 02/09/2018 11.5 Hematocrit (%) Date Value 02/09/2018 37.4 WBC (k/uL) Date Value 02/09/2018 3.96 Glucose (mg/dL) Date Value 02/09/2018 102 Potassium (mmol/L) Date Value 02/09/2018 4.2 Sodium (mmol/L) Date Value 02/09/2018 142 Chloride (mmol/L) Date Value 02/09/2018 103 CO2 (mmol/L) Date Value 02/09/2018 27 Creatinine (mg/dL) Date Value 02/09/2018 0.60 BUN (mg/dL) Date Value 02/09/2018 10 Anion Gap (mmol/L) Date Value 02/09/2018 12 Calcium (mg/dL) Date Value 02/09/2018 9.4 Protein, Total (g/dL) Date Value 02/09/2018 6.9 Albumin (g/dL) Date Value 02/09/2018 3.9 Bilirubin, Total (mg/dL) Date Value 02/09/2018 0.4 Alkaline Phosphatase (U/L) Date Value 02/09/2018 84 AST (U/L) Date Value 02/09/2018 28 ALT (U/L) Date Value 02/09/2018 21 No results found for: WSR No results found for: CRP PHYSICAL EXAM BP 131/80 Pulse 86 Ht 152.4 cm (5') Wt 94.8 kg (209 lb) BMI 40.82 kg/m? Physical Exam: APPEARANCE Well appearing, alert, in no acute distress, well-hydrated, well nourished. EXTREMITIES + lumbar low back pain and tight c spine muscles , OA of hands- some fullness of 1, 2 mcp bilaterally, s/p fusion left hand 3rd digit. Left foot swollen - entire foot- some rom with dorsiflexion, no redness NEURO Awake, alert and oriented x 3, Cranial nerves II-XII grossly intact, Normal gait and No involuntary motions. SKIN Skin color, texture, turgor normal, no suspicious rashes or lesions MEDICAL DECISION MAKING Assessment: (M06.09) Rheumatoid arthritis of multiple sites with negative rheumatoid factor (HCC) (primary encounter diagnosis) Comment: Low back pain/c spine pain Ok for medrol dose pack + 7 days of flexeril Rest Heating pad - She brings with her disability forms that require a functional capacity evaluation- will arrange. Plan: PHYSICAL PERFORMANCE TEST Available laboratories were reviewed with the patient. Radiographs were reviewed at todays visit. PLAN: as noted above 15 minutes spent [id number] with the patient during this office visit during which counseling or coordination of care activities account for more than 50 percent of this office visit. Maryjane Bower RN CREDIT SPECIALIST Referring Provider: SELF [[id number]] Allergies As of Date: 03/05/2018 Noted Allergy Reaction ADHESIVE TAPE (ROSINS) 02/13/2006 2 - Rash Comments: tore skin/blisters MORPHINE 02/05/2006 5 - Intolerance Comments: vomiting, shaking. NSAIDS (NON-STEROIDAL ANTI-INFLAM*10/05/2014 11 - Vomiting VASOTEC (ENALAPRIL MALEATE) 09/08/2008 Comments: nausea/doesn't work Date Reviewed: 03/05/2018 Reviewed by: Marie Ricardo Ma - Fully Assessed Reason for Visit: Arthritis [10] Primary Visit Diagnosis:Rheumatoid arthritis of multiple sites with negative rheumatoid factor (HCC) [M06.09] Order(s):PHYSICAL PERFORMANCE TEST [[id number]] Order #: [id number] cyclobenzaprine (FLEXERIL) 10 mg tabletTake 1 tablet by mouth twice daily as needed.Disp: 20 tabletRfl: 0 methylPREDNISolone (MEDROL, JORDYN,) 4 mg Dose-PackTake 1 tablet by mouth as directed. As directed on packageDisp: 1 PackageRfl: 0 Prescriptions as of 03/05/2018 Sig: LEVOTHYROXINE 75 MCG TABLET Take 1 tablet by mouth daily * LEFLUNOMIDE 20 MG TABLET Take 1 tablet by mouth once d* HYDROXYCHLOROQUINE 200 MG TAB* Take 1 tablet by mouth twice * DICLOFENAC 1 % TOPICAL GEL apply topically 4 grams to fo* CHOLECALCIFEROL (VITAMIN D3) * Take 2,000 Units by mouth onc* PROLIA SUBCUTANEOUS Inject subcutaneously once e* CELECOXIB 200 MG CAPSULE Take 200 mg by mouth as neede* MAGNESIUM OXIDE 500 MG TABLET Taking 250mg. Take two tablet* ACETAMINOPHEN 500 MG TABLET Take 500 mg by mouth every 8 * CPAP CHIN STRAP, USED WITH CPAP DE* FLUTICASONE 50 MCG/ACTUATION * Use 1 [place] in each nostril d* FERROUS SULFATE 325 MG (65 MG* Take 325 mg by mouth daily wi* ASCORBIC ACID (VITAMIN C) 500* Take 500 mg by mouth three ti* CPAP AutoPAP 10-20 cmH2O, suitable* CYCLOBENZAPRINE 10 MG TABLET CLOBETASOL 0.05 % TOPICAL CRE* as directed * GABAPENTIN 300 MG CAPSULE Take 300 mg by mouth three ti* * PROMETHAZINE 25 MG TABLET Take one(1) tablet every four* * ATIVAN 1 MG TABLET takes 1/2 tab as needed * FENTANYL 50 MCG/HR TRANSDERMA* Apply as directed. Change pat* * B COMPLEX 1 TABLET Take one(1) tablet daily. * MULTIVITAMIN,TX-MINERALS TABL* 1 tab daily CYCLOBENZAPRINE 10 MG TABLET Take 1 tablet by mouth twice * METHYLPREDNISOLONE 4 MG TABLE* Take 1 tablet by mouth as dir* Problem List As Of Date 03/05/2018 Noted Resolved LUMP OR MASS IN BREAST [N63.0] INVALID FOR* MALIG NEOPLASM BREAST-CENTRAL [C50.119] INVALID FOR* SEROMA, POST OP [NLM5485] INVALID FOR*09/30/2016 ANEMIA NOS [D64.9] INVALID FOR* Sacroiliac joint pain [M53.3] INVALID FOR* Benign neoplasm of skin of trunk, except scrotu*INVALID FOR* HARRISON (obstructive sleep apnea) AHI 13, but with *INVALID FOR* More... RLS (restless legs syndrome) [G25.81] INVALID FOR* Low ferritin level [R79.0] INVALID FOR* Sarcoidosis (HCC) [D86.9] INVALID FOR* Nasal congestion, nocturnal. 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 Pain in finger of right hand [M79.644] INVALID FOR* More... 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 Obesity, Class III, BMI >= 40 [E66.01] INVALID FOR* Bilateral shoulder pain [M25.511, M25.512] INVALID FOR* Prescriptions ordered this encounter Disp Refills Start End CYCLOBENZAPRINE 10 MG TABLET 20 t* 0 03/05/2018 Route: ORAL Sig: Take 1 tablet by mouth twice daily as needed. METHYLPREDNISOLONE 4 MG TABLETS IN A* 1 Pa* 0 03/05/2018 Route: ORAL Sig: Take 1 tablet by mouth as directed. As directed on package Encounter Status:Closed by MARYJANE BOWER CNP on 03/06/18 PROGRESS Observed: 03/04/2018 Status: COMPLETED Source: [place] 9:42 AM [facility] [place] REPOSITORY O ID: [id number] Author: Kat (Pt) Yoan Service: (none) Author Type: Physical Therapist Type: Progress Notes Filed: 03/04/2018 1:17 PM Note Text: Episode Visit Count: 46 Therapist That Will Oversee The Plan Of Care: Kat Milton Start of Care Date: 07/14/17 Onset Date: 02/17/17 Patient Identified by Name and Date of : Yes REHABILITATION AND SPORTS THERAPY PHYSICAL THERAPY PROGRESS REPORT PLAN OF CARE UPDATE: Assessment: Renae Elizondo exhibits improvements in reduction of ankle/foot edema, increased ankle AROM and L LE strength. She continues to be limited with walking in the community, stair negotiation and sleeping. She is progressing slower than expected towards her therapy goals as demonstrated by: documented subjective information on progress and documented objective information regarding gait, strength, range of motion and overall function. She will benefit from continued skilled therapy requiring progression of strengthening and AROM exercises and advancement of gait in order to further improve function and gait. Functional gains: Improved gait quality Improved ability to climb steps Improved sleep Increased endurance / activity tolerance Increased independence with HEP Increased ROM Increased strength Decreased intensity of pain Decreased frequency of pain Reduce circumferential /volumetric measurement Goals for Episode of Care: created on 07/14/17 through 09/13/17 Goals updated on 03/04/2018. [place] in home exercise program. (Met) Patient will decrease pain rating by 2 points to meet minimal clinical important difference for numeric pain rating scale. (Partially Met) Patient will increase active ROM of L ankle to allow pt to improved performance of ADLs and to normalize gait mechanics / gait pattern . (Met) Patient will increase strength of L LE to 4+ to 5/5 to allow for return to prior functional status and normalized gait mechanics. (Partially Met)- progressing Perform community ambulation, stair negotiation and undisturbed sleep with decreased report of symptoms/pain in 8 weeks. (Partially Met) Demonstrate improvement on functional score: Patient will increase his/her score on the Lower Extremity Functional Scale by at least 9 points to indicate a Minimal Clinical Important Difference. (Not Met) Normal gait. (Not Met)-progressing Planned Interventions, Frequency, and Duration: 1x every other week, 8 weeks Total Number of Visits Planned: 4 Patient to be seen for Therapeutic exercise;Neuromuscular re-education;Manual therapy;Gait Training;Patient/Family/Caregiver Education PLAN FOR NEXT VISIT: Plan to continue every 2 weeks to monitor independent progression and advance HEP appropriately. SUBJECTIVE: Pt states her foot is not as painful as last session d/t she was on her feet a lot over . She states she i stryin gto do stairs a little more often. She denies any difficulty descending, but notes that it is still a struggle to ascend and she leads with her R foot. She is sleeping much better (less painful awakening). Pain Score: 6/10 Pain Location: Foot - Left Post Treatment Pain Score: No Change OBJECTIVE MEASURES WITH LEVEL OF FUNCTION: Ankle Observations Comments: 2 above mall: L 22; B mall: L 28; heel: L 33; midfoot: L 24.5; MTP: L 25. Ankle Brace/Support: (Pt ambulating to and from department with both tennis shoes.) LE AROM L Ankle Dorsiflexion: 10 Degrees L Ankle Plantar Flexion: 50 Degrees L Ankle Inversion: 25 L Ankle Eversion: 17 LE Strength L Knee Extension (L3): 4+/5 L Knee Flexion: 5/5 L Ankle Dorsiflexion (L4): 4+/5 L Ankle Plantar Flexion: 5/5 L Ankle Inversion: 4/5 L Ankle Eversion: 4/5 Gait Gait Observation: Pt ambulating with small base quad cane independently. She demonstrates mild antalgic pattern favoring L LE, but improved luis miguel and more symmetrical weight bearing. L LE heel strike and push off mildly reduced. TREATMENT: Therapeutic Exercise: 1: Ambulation to department with quad cane and B tennis shoes with slow gait pattern. 2: Toe curls left x 2 minutes. 3: TOGA exercises for foot: toe abduction, toe adduction, great toe extension with 2-4 toes pressing into the floor and 2nd-4th toe extension with 1st and 5 th toe on floor 1x15 each 4: Standing BAPS PWB ball 3, no weight A/P, lateral and cw and ccw x 15 each. 5: foam square lateral step-ups stepping up and over each direction 1x10 reps with B UE assist on parallel bars 6: foam square forward step-ups leading with right and left leg 1 x 15 reps each leg with UE assist. 7: balance board lateral and A/P and side touches x 12 each Skilled Intervention: Patient was educated in proper exercise technique and purpose for exercises. Reviewed and educated patient on additions/changes for home exercise program Skilled judgment was provided in selection of appropriate interventions. Correct performance of therapeutic exercises was facilitated with verbal and visual cuing. Patient education as noted. Billing: [facility]: Therapeutic Exercise ([id number]): 1:1 time: 43 minutes (3 units: 38-52 mins) Total time: 43 minutes Kat Milton PT CNTHERAPY Observed: 03/04/2018 Status: COMPLETED Source: [place] 9:30 AM [facility] [place] REPOSITORY OT/PT/Speech Visit (PTWS) RENAE ELIZONDO ([id number]) 1955 F Date Time Provider Department 03/04/18 9:30 AM KAT MILTON (PT) PTWS Date Time Provider Department Center 03/04/2018 9:30 AM [id number] MILTON (PT) PTWS [facility] Reason for Visit: PT Progress Note [4976] Reason For Visit History Recorded Primary Visit Diagnosis:Arthritis, midfoot [M19.079] Allergies As of Date: 03/04/2018 Noted Allergy Reaction ADHESIVE TAPE (ROSINS) 02/13/2006 2 - Rash Comments: tore skin/blisters MORPHINE 02/05/2006 5 - Intolerance Comments: vomiting, shaking. NSAIDS (NON-STEROIDAL ANTI-INFLAM*10/05/2014 11 - Vomiting VASOTEC (ENALAPRIL MALEATE) 09/08/2008 Comments: nausea/doesn't work Date Reviewed: 02/18/2018 Reviewed by: Elisa Hernandez Ma - Fully Assessed Prescriptions as of 03/04/2018 Sig: ACETAMINOPHEN 500 MG TABLET Take 500 mg by mouth every 8 * ASCORBIC ACID (VITAMIN C) 500* Take 500 mg by mouth three ti* * B COMPLEX 1 TABLET Take one(1) tablet daily. CELECOXIB 200 MG CAPSULE Take 200 mg by mouth as neede* CHOLECALCIFEROL (VITAMIN D3) * Take 2,000 Units by mouth onc* CLOBETASOL 0.05 % TOPICAL CRE* as directed CPAP AutoPAP 10-20 cmH2O, suitable* CPAP CHIN STRAP, USED WITH CPAP DE* CYCLOBENZAPRINE 10 MG TABLET PROLIA SUBCUTANEOUS Inject subcutaneously once e* DICLOFENAC 1 % TOPICAL GEL apply topically 4 grams to fo* * FENTANYL 50 MCG/HR TRANSDERMA* Apply as directed. Change pat* FERROUS SULFATE 325 MG (65 MG* Take 325 mg by mouth daily wi* FLUTICASONE 50 MCG/ACTUATION * Use 1 [place] in each nostril d* * GABAPENTIN 300 MG CAPSULE Take 300 mg by mouth three ti* HYDROXYCHLOROQUINE 200 MG TAB* Take 1 tablet by mouth twice * LEFLUNOMIDE 20 MG TABLET Take 1 tablet by mouth once d* LEVOTHYROXINE 75 MCG TABLET Take 1 tablet by mouth daily * * ATIVAN 1 MG TABLET takes 1/2 tab as needed MAGNESIUM OXIDE 500 MG TABLET Taking 250mg. Take two tablet* * MULTIVITAMIN,TX-MINERALS TABL* 1 tab daily * PROMETHAZINE 25 MG TABLET Take one(1) tablet every four* Progress Notes: Kat Milton, PT 03/04/2018 1:17 PM Signed Episode Visit Count: 46 Therapist That Will Oversee The Plan Of Care: Kat Milton Start of Care Date: 07/14/17 Onset Date: 02/17/17 Patient Identified by Name and Date of : Yes REHABILITATION AND SPORTS THERAPY PHYSICAL THERAPY PROGRESS REPORT PLAN OF CARE UPDATE: Assessment: Renae Elizondo exhibits improvements in reduction of ankle/foot edema, increased ankle AROM and L LE strength. She continues to be limited with walking in the community, stair negotiation and sleeping. She is progressing slower than expected towards her therapy goals as demonstrated by: documented subjective information on progress and documented objective information regarding gait, strength, range of motion and overall function. She will benefit from continued skilled therapy requiring progression of strengthening and AROM exercises and advancement of gait in order to further improve function and gait. Functional gains: Improved gait quality Improved ability to climb steps Improved sleep Increased endurance / activity tolerance Increased independence with HEP Increased ROM Increased strength Decreased intensity of pain Decreased frequency of pain Reduce circumferential /volumetric measurement Goals for Episode of Care: created on 07/14/17 through 09/13/17 Goals updated on 03/04/2018. [place] in home exercise program. (Met) Patient will decrease pain rating by 2 points to meet minimal clinical important difference for numeric pain rating scale. (Partially Met) Patient will increase active ROM of L ankle to allow pt to improved performance of ADLs and to normalize gait mechanics / gait pattern . (Met) Patient will increase strength of L LE to 4+ to 5/5 to allow for return to prior functional status and normalized gait mechanics. (Partially Met)- progressing Perform community ambulation, stair negotiation and undisturbed sleep with decreased report of symptoms/pain in 8 weeks. (Partially Met) Demonstrate improvement on functional score: Patient will increase his/her score on the Lower Extremity Functional Scale by at least 9 points to indicate a Minimal Clinical Important Difference. (Not Met) Normal gait. (Not Met)-progressing Planned Interventions, Frequency, and Duration: 1x every other week, 8 weeks Total Number of Visits Planned: 4 Patient to be seen for Therapeutic exercise;Neuromuscular re-education;Manual therapy;Gait Training;Patient/Family/Caregiver Education PLAN FOR NEXT VISIT: Plan to continue every 2 weeks to monitor independent progression and advance HEP appropriately. SUBJECTIVE: Pt states her foot is not as painful as last session d/t she was on her feet a lot over . She states she i stryin gto do stairs a little more often. She denies any difficulty descending, but notes that it is still a struggle to ascend and she leads with her R foot. She is sleeping much better (less painful awakening). Pain Score: 6/10 Pain Location: Foot - Left Post Treatment Pain Score: No Change OBJECTIVE MEASURES WITH LEVEL OF FUNCTION: Ankle Observations Comments: 2 above mall: L 22; B mall: L 28; heel: L 33; midfoot: L 24.5; MTP: L 25. Ankle Brace/Support: (Pt ambulating to and from department with both tennis shoes.) LE AROM L Ankle Dorsiflexion: 10 Degrees L Ankle Plantar Flexion: 50 Degrees L Ankle Inversion: 25 L Ankle Eversion: 17 LE Strength L Knee Extension (L3): 4+/5 L Knee Flexion: 5/5 L Ankle Dorsiflexion (L4): 4+/5 L Ankle Plantar Flexion: 5/5 L Ankle Inversion: 4/5 L Ankle Eversion: 4/5 Gait Gait Observation: Pt ambulating with small base quad cane independently. She demonstrates mild antalgic pattern favoring L LE, but improved luis miguel and more symmetrical weight bearing. L LE heel strike and push off mildly reduced. TREATMENT: Therapeutic Exercise: 1: Ambulation to department with quad cane and B tennis shoes with slow gait pattern. 2: Toe curls left x 2 minutes. 3: TOGA exercises for foot: toe abduction, toe adduction, great toe extension with 2-4 toes pressing into the floor and 2nd-4th toe extension with 1st and 5 th toe on floor 1x15 each 4: Standing BAPS PWB ball 3, no weight A/P, lateral and cw and ccw x 15 each. 5: foam square lateral step-ups stepping up and over each direction 1x10 reps with B UE assist on parallel bars 6: foam square forward step-ups leading with right and left leg 1 x 15 reps each leg with UE assist. 7: balance board lateral and A/P and side touches x 12 each Skilled Intervention: Patient was educated in proper exercise technique and purpose for exercises. Reviewed and educated patient on additions/changes for home exercise program Skilled judgment was provided in selection of appropriate interventions. Correct performance of therapeutic exercises was facilitated with verbal and visual cuing. Patient education as noted. Billing: [facility]: Therapeutic Exercise ([id number]): 1:1 time: 43 minutes (3 units: 38-52 mins) Total time: 43 minutes Kat Milton PT PROGRESS Observed: 02/25/2018 Status: COMPLETED Source: [place] 3:05 PM [facility] [place] REPOSITORY HNO ID: [id number] Author: Agnes Bunn Service: (none) Author Type: Physical Therapist Type: Progress Notes Filed: 02/25/2018 3:12 PM Note Text: Episode Visit Count: 45 Therapist That Will Oversee The Plan Of Care: Kat Milton Start of Care Date: 07/14/17 Onset Date: 02/17/17 Patient Identified by Name and Date of : Yes REHABILITATION AND SPORTS THERAPY PHYSICAL THERAPY TREATMENT NOTE ASSESSMENT: Renae Elizondo demonstrated difficulty with increase pain and swelling from Post.Bid.Ship activities yesterday. Decreased intensity of exercises today and added retrograde massage at end of treatment. Patient with greater ease of putting on her shoe after retrograde massage and had slight reduction in pain with weight bearing. The patient will continue to benefit from continued skilled physical therapy for plan of care update next visit. PLAN FOR NEXT VISIT: POC update next visit. SUBJECTIVE: Patient reports she stood a lot yesterday and had increase pain. She reports left foot is hurting today and foot is more swollen. Pain Score: 8/10 Pain Location: Foot - Left Description: Aching;Sharp Frequency: Continuous Post Treatment Pain Score: 7/10 Pain Location: Foot - Left Post Treatment Pain Description: Aching;Sharp OBJECTIVE MEASURES WITH LEVEL OF FUNCTION: Increase edema left foot and posterior ankle which decreased slightly with retrograde massage. TREATMENT: Therapeutic Exercise: 1: Ambulation to department with quad cane and B tennis shoes with slow gait pattern. 2: Toe curls left x 2 minutes. 3: TOGA exercises for foot: toe abduction, toe adduction, great toe extension with 2-4 toes pressing into the floor and 2nd-4th toe extension with 1st and 5 th toe on floor 1x15 each 4: Standing BAPS PWB ball 3, no weight A/P, lateral and cw and ccw x 15 each. 5: foam square lateral step-ups stepping up and over each direction 1x10 reps with B UE assist on parallel bars 6: foam square forward step-ups leading with right and left leg 1 x 15 reps each leg with UE assist. 7: balance board lateral and A/P and side touches x 10 each Skilled Intervention: Patient was educated in proper exercise technique and purpose for exercises. Reviewed and educated patient on additions/changes for home exercise program continue with same exercise per tolerance. Provided written instruction for home exercise program to facilitate proper performance and compliance. Correct performance of therapeutic exercises was facilitated with verbal cuing. Manual Therapy: 1: Retrograde massage left foot and ankle in elevation with pressure to patient tolerance x 10 minutes. Skilled Intervention: Manual skills to improve joint mobility, ROM, and decrease pain. Utilized anatomy knowledge of the therapist, and assessment of patient's response to intervention. Billing: [facility]: Therapeutic Exercise ([id number]): 1:1 time: 32 minutes (2 units: 23-37 mins) Manual Therapy ([id number]): 1:1 time: 10 minutes (1 unit: 8-22 mins) Total time: 42 minutes HEATHER Jean/Agnes Bunn PT CNTHERAPY Observed: 02/25/2018 Status: COMPLETED Source: [place] 2:15 PM [facility] [place] REPOSITORY OT/PT/Speech Visit (PTWS) RENAE ELIZONDO ([id number]) 1955 F Date Time Provider Department 02/25/18 2:15 PM RITA SUN (SAMPLE SUPERVISOR) PTWS Date Time Provider Department Center 02/25/2018 2:15 PM [id number], NANCY (SAMPLE SUPERVISOR) PTWS [facility] Reason for Visit: Physical Therapy [503] Primary Visit Diagnosis:Arthritis, midfoot [M19.079] Allergies As of Date: 02/25/2018 Noted Allergy Reaction ADHESIVE TAPE (ROSINS) 02/13/2006 2 - Rash Comments: tore skin/blisters MORPHINE 02/05/2006 5 - Intolerance Comments: vomiting, shaking. NSAIDS (NON-STEROIDAL ANTI-INFLAM*10/05/2014 11 - Vomiting VASOTEC (ENALAPRIL MALEATE) 09/08/2008 Comments: nausea/doesn't work Date Reviewed: 02/18/2018 Reviewed by: Elisa Hernandez Ma - Fully Assessed Prescriptions as of 02/25/2018 Sig: ACETAMINOPHEN 500 MG TABLET Take 500 mg by mouth every 8 * ASCORBIC ACID (VITAMIN C) 500* Take 500 mg by mouth three ti* * B COMPLEX 1 TABLET Take one(1) tablet daily. CELECOXIB 200 MG CAPSULE Take 200 mg by mouth as neede* CHOLECALCIFEROL (VITAMIN D3) * Take 2,000 Units by mouth onc* CLOBETASOL 0.05 % TOPICAL CRE* as directed CPAP AutoPAP 10-20 cmH2O, suitable* CPAP CHIN STRAP, USED WITH CPAP DE* CYCLOBENZAPRINE 10 MG TABLET PROLIA SUBCUTANEOUS Inject subcutaneously once e* DICLOFENAC 1 % TOPICAL GEL apply topically 4 grams to fo* * FENTANYL 50 MCG/HR TRANSDERMA* Apply as directed. Change pat* FERROUS SULFATE 325 MG (65 MG* Take 325 mg by mouth daily wi* FLUTICASONE 50 MCG/ACTUATION * Use 1 [place] in each nostril d* * GABAPENTIN 300 MG CAPSULE Take 300 mg by mouth three ti* HYDROXYCHLOROQUINE 200 MG TAB* Take 1 tablet by mouth twice * LEFLUNOMIDE 20 MG TABLET Take 1 tablet by mouth once d* LEVOTHYROXINE 75 MCG TABLET Take 1 tablet by mouth daily * * ATIVAN 1 MG TABLET takes 1/2 tab as needed MAGNESIUM OXIDE 500 MG TABLET Taking 250mg. Take two tablet* * MULTIVITAMIN,TX-MINERALS TABL* 1 tab daily * PROMETHAZINE 25 MG TABLET Take one(1) tablet every four* Progress Notes: Agnes Bunn, EASTON 02/25/2018 3:12 PM Signed Episode Visit Count: 45 Therapist That Will Oversee The Plan Of Care: Kat Miltno Start of Care Date: 07/14/17 Onset Date: 02/17/17 Patient Identified by Name and Date of : Yes REHABILITATION AND SPORTS THERAPY PHYSICAL THERAPY TREATMENT NOTE ASSESSMENT: Renae Elizondo demonstrated difficulty with increase pain and swelling from [place] activities yesterday. Decreased intensity of exercises today and added retrograde massage at end of treatment. Patient with greater ease of putting on her shoe after retrograde massage and had slight reduction in pain with weight bearing. The patient will continue to benefit from continued skilled physical therapy for plan of care update next visit. PLAN FOR NEXT VISIT: POC update next visit. SUBJECTIVE: Patient reports she stood a lot yesterday and had increase pain. She reports left foot is hurting today and foot is more swollen. Pain Score: 8/10 Pain Location: Foot - Left Description: Aching;Sharp Frequency: Continuous Post Treatment Pain Score: 7/10 Pain Location: Foot - Left Post Treatment Pain Description: Aching;Sharp OBJECTIVE MEASURES WITH LEVEL OF FUNCTION: Increase edema left foot and posterior ankle which decreased slightly with retrograde massage. TREATMENT: Therapeutic Exercise: 1: Ambulation to department with quad cane and B tennis shoes with slow gait pattern. 2: Toe curls left x 2 minutes. 3: TOGA exercises for foot: toe abduction, toe adduction, great toe extension with 2-4 toes pressing into the floor and 2nd-4th toe extension with 1st and 5 th toe on floor 1x15 each 4: Standing BAPS PWB ball 3, no weight A/P, lateral and cw and ccw x 15 each. 5: foam square lateral step-ups stepping up and over each direction 1x10 reps with B UE assist on parallel bars 6: foam square forward step-ups leading with right and left leg 1 x 15 reps each leg with UE assist. 7: balance board lateral and A/P and side touches x 10 each Skilled Intervention: Patient was educated in proper exercise technique and purpose for exercises. Reviewed and educated patient on additions/changes for home exercise program continue with same exercise per tolerance. Provided written instruction for home exercise program to facilitate proper performance and compliance. Correct performance of therapeutic exercises was facilitated with verbal cuing. Manual Therapy: 1: Retrograde massage left foot and ankle in elevation with pressure to patient tolerance x 10 minutes. Skilled Intervention: Manual skills to improve joint mobility, ROM, and decrease pain. Utilized anatomy knowledge of the therapist, and assessment of patient's response to intervention. Billing: [facility]: Therapeutic Exercise ([id number]): 1:1 time: 32 minutes (2 units: 23-37 mins) Manual Therapy ([id number]): 1:1 time: 10 minutes (1 unit: 8-22 mins) Total time: 42 minutes Rita Sun PTRanjit/Agnes Bunn PT Previous Version Follow-up and Disposition History Recorded PROGRESS Observed: 02/18/2018 Status: COMPLETED Source: [place] 9:06 AM [facility] [place] REPOSITORY HNO ID: [id number] Author: Brandon Macias Service: (none) Author Type: Physician Type: Progress Notes Filed: 02/18/2018 12:16 PM Note Text: Follow up podiatric office visit for: Chief Complaint: This 62 year old who presents for follow up:left foot arthritis Patient states that her left foot is doing well. She still has some swelling but it is improving. She states the pain is tolerable of left foot. Patient has inserts and she feels that these are helping. PAIN EVALUATION 02/18/2018 Pain Score: 7 Pain Location: Foot-Left Description: Aching Duration Amount of Time: - ongoing Frequency: Continuous Intervention: Medication No results found for: HBA1C PCP: Elisa Baxter MD PAST MEDICAL HISTORY Diagnosis Date - Anemia - Hypothyroidism - Malignant neoplasm of breast (female), unspecified site - Obstructive sleep apnea - Other and unspecified diseases of upper respiratory tract - RA (rheumatoid arthritis) (HCC) - S/P gastric bypass - Sarcoidosis Current Outpatient Prescriptions: acetaminophen (TYLENOL EXTRA STRENGTH) 500 mg tablet Take 500 mg by mouth every 8 hours as needed. ascorbic acid (VITAMIN C) 500 mg tablet Take 500 mg by mouth three times daily. B COMPLEX 1 TAB Take one(1) tablet daily. celecoxib (CELEBREX) 200 mg capsule Take 200 mg by mouth as needed. cholecalciferol (VITAMIN D-3) 2,000 unit tablet Take 2,000 Units by mouth once daily. CLOBETASOL 0.05 % cream as directed CPAP AutoPAP 10-20 cmH2O, suitable mask, humidity, filters. Lifetime supplies. Dx: 327.23. Fax compliance rpt to [phone] in 4-6 weeks. cyclobenzaprine (FLEXERIL) 10 mg tablet DENOSUMAB (PROLIA SUBCUTANEOUS) Inject subcutaneously once every 6 months. diclofenac sodium (VOLTAREN) 1 % topical gel apply topically 4 grams to foot four times a day fentanyl 50 mcg/hr TRANSDERM. PT72 Apply as directed. Change patch every 3 days. ferrous sulfate 325 mg (65 mg iron) tablet Take 325 mg by mouth daily with breakfast. fluticasone (FLONASE) 50 mcg/actuation nasal spray Use 1 [place] in each nostril daily at bedtime. gabapentin 300 mg capsule Take 300 mg by mouth three times daily. hydroxychloroquine (PLAQUENIL) 200 mg tablet Take 1 tablet by mouth twice daily. leflunomide (ARAVA) 20 mg tablet Take 1 tablet by mouth once daily. levothyroxine (LEVOTHROID) 50 mcg tablet Take 50 mcg by mouth daily before breakfast. lorazepam(ATIVAN 1 MG TAB) takes 1/2 tab as needed Magnesium Oxide 500 mg tab Taking 250mg. Take two tablets by mouth once daily. MULTIVITAMIN,TX-MINERALS TAB 1 tab daily PROMETHAZINE 25 MG TAB Take one(1) tablet every four(4) to six(6) hours as needed for nausea. CPAP CHIN STRAP, USED WITH CPAP DEVICE No current facility-administered medications for this visit. ALLERGIES Allergen Reactions - Adhesive Tape (Love* Rash tore skin/blisters - Morphine Intolerance vomiting, shaking. - Nsaids (Non-Steroid* Vomiting - Vasotec [Enalapril * nausea/doesn't work PAST SURGICAL HISTORY Procedure Laterality Date - APPENDECTOMY 2000 Done with gastric bypass - COLONOSCOP W/ OR W/O [facility] SPEC 12/05/2008,12 Colonoscopy - FUSION FINGER JOINT Right 09/05/2017 Right index and middle fingers DIP joint fusion, Right 5th finger PIP joint fusion - GASTRIC BYPASS-MORBID OBESITY 2000 - MASTECTOMY, MODIFIED RADICAL 08/27/2006 Right MRM - PAST SURGICAL HISTORY OF 2000 venous ligation leg - PAST SURGICAL HISTORY OF Carpal Tunnel - PAST SURGICAL HISTORY OF Left thumb repair - PAST SURGICAL HISTORY OF port acath LEFT - PAST SURGICAL HISTORY OF removal of port - PAST SURGICAL HISTORY OF Left 01/2017 lt 2nd AND 3rd digit repair - OR ANESTH,REPAIR LO ABD HERNIA NOS - OR ANESTH,VAGINAL HYSTERECTOMY 2003 BSO - REMOVAL GALLBLADDER 1992 Cholecystectomy REVIEW OF SYSTEMS: CONSTITUTIONAL: No fevers, chills, nightsweats, unintended weight loss HEENT: Denies frequent or severe heaches, nasal congestion/sinus symptoms, problematic allergy problems. EYES: No diplopia or blurry vision. CARDIOVASCULAR: No chest pain, dyspnea, palpitations, orthopnea, PND, ankle edema. PULM: No dyspnea, unexplained cough. GI: No dysphagia/odynophagia, problematic reflux, constipation, diarrhea, changes in stool habits, hematochezia, melena. : No new urinary complaints, including dysuria, gross hematuria or pyuria. NEURO: No new balance problems, peripheral weakness/paresthesias or numbness of concern. MUSC-SKEL: Left foot pain PSY: No concerns regarding depression, anxiety or panic. INTEGUMENTARY: No new skin changes (rash, new or changing mole, new growth) Physical Exam: Constitutional: Pt is a well developed 62 year old female who is alert, oriented, cooperative and in no apparent distress. OBJECTIVE: NVSI unchanged from previous visit. Dermatological: Nails 1-5 b/l are normal. Webspaces clean and dry 1-4 b/l. Skin appears well hydrated and supple. good color, texture, turgor. No open lesions present. No callosities present. Musculoskeletal/Orthopaedic: Patient has pain to palpation of dorsal navicular cuneiform joint. Patient also has pain to lateral aspect of left ankle along peroneal tendons. There is swelling present to left lower extremity. No calf pain mmt is 5/5 for plantarflexion, dorsiflexion, inversion and eversion ASSESSMENT: (M19.072) Arthritis of left foot (primary encounter diagnosis) (M76.72) Peroneal tendinitis of left lower extremity PLAN: 1. History and physical examination completed today. 2. Discussed pain of left midfoot. She has arthritis and we reviewed xrays that confirm arthritis. Continue with inserts. If pain persists, she could consider xray guided injection of midfoot 3. Discussed left lateral ankle pain. Discussed peroneal tendonitis. She states pain is improved. She can continue with light compression and rehab. If pain persists, could consider mri to assure no partial tearing of peroneal tendon. She does have retained hardware of left tn joint so mri may be difficult to obtain. 4. F/u prn. Brandon Macias DPM PROGRESS Observed: 02/18/2018 Status: COMPLETED Source: [place] 9:04 AM [facility] [place] REPOSITORY HNO ID: [id number] Author: Elisa Hernandez Ma Service: (none) Author Type: (none) Type: Progress Notes Filed: 02/18/2018 12:16 PM Note Text: AMB ROOMING INTAKE FLOWSHEET DATA Risk Screening Do you have concerns about personal safety or safety in the home?: No Pain Pain Score: 7/10 Pain Location: Foot-Left Description: Aching Duration Amount of Time: (ongoing) Frequency: Continuous Intervention: Medication Patient here today for follow up left foot pain. She has been doing PT as prescribed. Took a fall yesterday and is sore all over the body today. CNOV Observed: 02/18/2018 Status: COMPLETED Source: [place] 8:55 AM [facility] [place] REPOSITORY Office Visit (PODIWS) RENAE ELIZONDO ([id number]) 1955 F Date Time Provider Department 02/18/18 8:55 AM BRANDON MACIAS PODIWS During your visit today, we recorded the following information about you: Elisa Hernandez Ma 02/18/2018 12:16 PM Signed AMB ROOMING INTAKE FLOWSHEET DATA Risk Screening Do you have concerns about personal safety or safety in the home?: No Pain Pain Score: 7/10 Pain Location: Foot-Left Description: Aching Duration Amount of Time: (ongoing) Frequency: Continuous Intervention: Medication Patient here today for follow up left foot pain. She has been doing PT as prescribed. Took a fall yesterday and is sore all over the body today. Brandon Macias DPM 02/18/2018 12:16 PM Signed Follow up podiatric office visit for: Chief Complaint: This 62 year old who presents for follow up:left foot arthritis Patient states that her left foot is doing well. She still has some swelling but it is improving. She states the pain is tolerable of left foot. Patient has inserts and she feels that these are helping. PAIN EVALUATION 02/18/2018 Pain Score: 7 Pain Location: Foot-Left Description: Aching Duration Amount of Time: - ongoing Frequency: Continuous Intervention: Medication No results found for: HBA1C PCP: Elisa Baxter MD PAST MEDICAL HISTORY Diagnosis Date - Anemia - Hypothyroidism - Malignant neoplasm of breast (female), unspecified site - Obstructive sleep apnea - Other and unspecified diseases of upper respiratory tract - RA (rheumatoid arthritis) (HCC) - S/P gastric bypass - Sarcoidosis Current Outpatient Prescriptions: acetaminophen (TYLENOL EXTRA STRENGTH) 500 mg tablet Take 500 mg by mouth every 8 hours as needed. ascorbic acid (VITAMIN C) 500 mg tablet Take 500 mg by mouth three times daily. B COMPLEX 1 TAB Take one(1) tablet daily. celecoxib (CELEBREX) 200 mg capsule Take 200 mg by mouth as needed. cholecalciferol (VITAMIN D-3) 2,000 unit tablet Take 2,000 Units by mouth once daily. CLOBETASOL 0.05 % cream as directed CPAP AutoPAP 10-20 cmH2O, suitable mask, humidity, filters. Lifetime supplies. Dx: 327.23. Fax compliance rpt to [phone] in 4-6 weeks. cyclobenzaprine (FLEXERIL) 10 mg tablet DENOSUMAB (PROLIA SUBCUTANEOUS) Inject subcutaneously once every 6 months. diclofenac sodium (VOLTAREN) 1 % topical gel apply topically 4 grams to foot four times a day fentanyl 50 mcg/hr TRANSDERM. PT72 Apply as directed. Change patch every 3 days. ferrous sulfate 325 mg (65 mg iron) tablet Take 325 mg by mouth daily with breakfast. fluticasone (FLONASE) 50 mcg/actuation nasal spray Use 1 [place] in each nostril daily at bedtime. gabapentin 300 mg capsule Take 300 mg by mouth three times daily. hydroxychloroquine (PLAQUENIL) 200 mg tablet Take 1 tablet by mouth twice daily. leflunomide (ARAVA) 20 mg tablet Take 1 tablet by mouth once daily. levothyroxine (LEVOTHROID) 50 mcg tablet Take 50 mcg by mouth daily before breakfast. lorazepam(ATIVAN 1 MG TAB) takes 1/2 tab as needed Magnesium Oxide 500 mg tab Taking 250mg. Take two tablets by mouth once daily. MULTIVITAMIN,TX-MINERALS TAB 1 tab daily PROMETHAZINE 25 MG TAB Take one(1) tablet every four(4) to six(6) hours as needed for nausea. CPAP CHIN STRAP, USED WITH CPAP DEVICE No current facility-administered medications for this visit. ALLERGIES Allergen Reactions - Adhesive Tape (Love* Rash tore skin/blisters - Morphine Intolerance vomiting, shaking. - Nsaids (Non-Steroid* Vomiting - Vasotec [Enalapril * nausea/doesn't work PAST SURGICAL HISTORY Procedure Laterality Date - APPENDECTOMY 2000 Done with gastric bypass - COLONOSCOP W/ OR W/O [facility] SPEC 12/05/2008,12 Colonoscopy - FUSION FINGER JOINT Right 09/05/2017 Right index and middle fingers DIP joint fusion, Right 5th finger PIP joint fusion - GASTRIC BYPASS-MORBID OBESITY 2000 - MASTECTOMY, MODIFIED RADICAL 08/27/2006 Right MRM - PAST SURGICAL HISTORY OF 2000 venous ligation leg - PAST SURGICAL HISTORY OF Carpal Tunnel - PAST SURGICAL HISTORY OF Left thumb repair - PAST SURGICAL HISTORY OF port acath LEFT - PAST SURGICAL HISTORY OF removal of port - PAST SURGICAL HISTORY OF Left 01/2017 lt 2nd AND 3rd digit repair - OR ANESTH,REPAIR LO ABD HERNIA NOS - OR ANESTH,VAGINAL HYSTERECTOMY 2003 BSO - REMOVAL GALLBLADDER 1992 Cholecystectomy REVIEW OF SYSTEMS: CONSTITUTIONAL: No fevers, chills, nightsweats, unintended weight loss HEENT: Denies frequent or severe heaches, nasal congestion/sinus symptoms, problematic allergy problems. EYES: No diplopia or blurry vision. CARDIOVASCULAR: No chest pain, dyspnea, palpitations, orthopnea, PND, ankle edema. PULM: No dyspnea, unexplained cough. GI: No dysphagia/odynophagia, problematic reflux, constipation, diarrhea, changes in stool habits, hematochezia, melena. : No new urinary complaints, including dysuria, gross hematuria or pyuria. NEURO: No new balance problems, peripheral weakness/paresthesias or numbness of concern. MUSC-SKEL: Left foot pain PSY: No concerns regarding depression, anxiety or panic. INTEGUMENTARY: No new skin changes (rash, new or changing mole, new growth) Physical Exam: Constitutional: Pt is a well developed 62 year old female who is alert, oriented, cooperative and in no apparent distress. OBJECTIVE: NVSI unchanged from previous visit. Dermatological: Nails 1-5 b/l are normal. Webspaces clean and dry 1-4 b/l. Skin appears well hydrated and supple. good color, texture, turgor. No open lesions present. No callosities present. Musculoskeletal/Orthopaedic: Patient has pain to palpation of dorsal navicular cuneiform joint. Patient also has pain to lateral aspect of left ankle along peroneal tendons. There is swelling present to left lower extremity. No calf pain mmt is 5/5 for plantarflexion, dorsiflexion, inversion and eversion ASSESSMENT: (M19.072) Arthritis of left foot (primary encounter diagnosis) (M76.72) Peroneal tendinitis of left lower extremity PLAN: 1. History and physical examination completed today. 2. Discussed pain of left midfoot. She has arthritis and we reviewed xrays that confirm arthritis. Continue with inserts. If pain persists, she could consider xray guided injection of midfoot 3. Discussed left lateral ankle pain. Discussed peroneal tendonitis. She states pain is improved. She can continue with light compression and rehab. If pain persists, could consider mri to assure no partial tearing of peroneal tendon. She does have retained hardware of left tn joint so mri may be difficult to obtain. 4. F/u prn. Brandon Macias DPM Referring Provider: KARINA DE LEON [[id number]] Allergies As of Date: 02/18/2018 Noted Allergy Reaction ADHESIVE TAPE (ROSINS) 02/13/2006 2 - Rash Comments: tore skin/blisters MORPHINE 02/05/2006 5 - Intolerance Comments: vomiting, shaking. NSAIDS (NON-STEROIDAL ANTI-INFLAM*10/05/2014 11 - Vomiting VASOTEC (ENALAPRIL MALEATE) 09/08/2008 Comments: nausea/doesn't work Date Reviewed: 02/18/2018 Reviewed by: Elisa Hernandez Ma - Fully Assessed Reason for Visit: Established Patient [175] Cmt: follow up left foot arthritis Primary Visit Diagnosis:Arthritis of left foot [M19.072] Other Visit Diagnosis:Peroneal tendinitis of left lower extremity [M76.72] Order(s):levothyroxine (SYNTHROID) 75 mcg tabletTake 1 tablet by mouth daily before breakfast.Disp: Rfl: Prescriptions as of 02/18/2018 Sig: ACETAMINOPHEN 500 MG TABLET Take 500 mg by mouth every 8 * ASCORBIC ACID (VITAMIN C) 500* Take 500 mg by mouth three ti* * B COMPLEX 1 TABLET Take one(1) tablet daily. CELECOXIB 200 MG CAPSULE Take 200 mg by mouth as neede* CHOLECALCIFEROL (VITAMIN D3) * Take 2,000 Units by mouth onc* CLOBETASOL 0.05 % TOPICAL CRE* as directed CPAP AutoPAP 10-20 cmH2O, suitable* CYCLOBENZAPRINE 10 MG TABLET PROLIA SUBCUTANEOUS Inject subcutaneously once e* DICLOFENAC 1 % TOPICAL GEL apply topically 4 grams to fo* * FENTANYL 50 MCG/HR TRANSDERMA* Apply as directed. Change pat* FERROUS SULFATE 325 MG (65 MG* Take 325 mg by mouth daily wi* FLUTICASONE 50 MCG/ACTUATION * Use 1 [place] in each nostril d* * GABAPENTIN 300 MG CAPSULE Take 300 mg by mouth three ti* HYDROXYCHLOROQUINE 200 MG TAB* Take 1 tablet by mouth twice * LEFLUNOMIDE 20 MG TABLET Take 1 tablet by mouth once d* LEVOTHYROXINE 75 MCG TABLET Take 1 tablet by mouth daily * * ATIVAN 1 MG TABLET takes 1/2 tab as needed MAGNESIUM OXIDE 500 MG TABLET Taking 250mg. Take two tablet* * MULTIVITAMIN,TX-MINERALS TABL* 1 tab daily * PROMETHAZINE 25 MG TABLET Take one(1) tablet every four* CPAP CHIN STRAP, USED WITH CPAP DE* Problem List As Of Date 02/18/2018 Noted Resolved LUMP OR MASS IN BREAST [N63.0] INVALID FOR* MALIG NEOPLASM BREAST-CENTRAL [C50.119] INVALID FOR* SEROMA, POST OP [FYS5727] INVALID FOR*09/30/2016 ANEMIA NOS [D64.9] INVALID FOR* Sacroiliac joint pain [M53.3] INVALID FOR* Benign neoplasm of skin of trunk, except scrotu*INVALID FOR* HARRISON (obstructive sleep apnea) AHI 13, but with *INVALID FOR* More... RLS (restless legs syndrome) [G25.81] INVALID FOR* Low ferritin level [R79.0] INVALID FOR* Sarcoidosis (HCC) [D86.9] INVALID FOR* Nasal congestion, nocturnal. 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 Pain in finger of right hand [M79.644] INVALID FOR* More... 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 Obesity, Class III, BMI >= 40 [E66.01] INVALID FOR* Bilateral shoulder pain [M25.511, M25.512] INVALID FOR* Prescriptions ordered this encounter Disp Refills Start End LEVOTHYROXINE 75 MCG TABLET 02/18/2018 Class: Med Update Route: ORAL Sig: Take 1 tablet by mouth daily before breakfast. Cosign accepted by BRANDON MACIAS DPM[[id number]] on 02/18/2018 12:16 PM Medications Discontinued During This Encounter levothyroxine (LEVOTHROID) 50 mcg ta* 02/18/2018 Class: Historical Med Route: ORAL Sig: Take 50 mcg by mouth daily before breakfast. Disc: Reason for discontinue is not on file. Disposition: Return if symptoms worsen or fail to improve. Follow-up and Disposition History Recorded Encounter Status:Closed by BRANDON MACIAS DPM on 02/18/18 PROGRESS Observed: 02/18/2018 Status: COMPLETED Source: [place] 8:06 AM [facility] [place] REPOSITORY O ID: [id number] Author: Kat (Pt) Yoan Service: (none) Author Type: Physical Therapist Type: Progress Notes Filed: 02/18/2018 10:13 AM Note Text: Episode Visit Count: 44 Therapist That Will Oversee The Plan Of Care: Kat Milton Start of Care Date: 07/14/17 Onset Date: 02/17/17 Patient Identified by Name and Date of : Yes REHABILITATION AND SPORTS THERAPY PHYSICAL THERAPY TREATMENT NOTE ASSESSMENT: Renae Elizondo demonstrated difficulty with gait and ankle AROM and improvements in gait by end of session. The patient will continue to benefit from continued skilled physical therapy for AROM, strengthening and gait. PLAN FOR NEXT VISIT: Possible POC update next visit. Progress as tolerated. SUBJECTIVE: Pt reports she fell yesterday in her kitchen and landed on her R knee. She states she had more soreness last night and still this morning is more painful in foot and sore all over. She feels the swelling has reduced, but is still puffed up in the back some. She has a follow up appt with Dr. Macias following this therapy visit. Pain Score: 7/10 Pain Location: Foot - Left Post Treatment Pain Score: 8/10 (7.5-8/10) Pain Location: Foot - Left Post Treatment Pain Description: (more shaky than sharp pain) OBJECTIVE MEASURES WITH LEVEL OF FUNCTION: Gait Gait Observation: Pt ambulating with shoes adn small base quad cane. She demonstrates slightly decreased heel strike and push off today, but this improved by the end of the session. Slightly decreased luis miguel and increased guarding overall. TREATMENT: Therapeutic Exercise: 1: Ambulation with quad cane and focus on symmetrical weight bearing, trunk posture and heel strike/toe off x 70ft. 2: Toe curls left x 2 minutes. 3: TOGA exercises for foot: toe abduction, toe adduction, great toe extension with 2-4 toes pressing into the floor and 2nd-4th toe extension with 1st and 5 th toe on floor 1x15 each 4: Standing BAPS PWB ball 3, pegs on A/P, lateral and cw and ccw x 15 each. 5: foam square lateral step-ups stepping up and over each direction 2x10 reps with B UE assist on parallel bars 6: foam square forward step-ups leading with right and left leg 1 x 15 reps each leg with UE assist. 7: balance board lateral and A/P side touches Skilled Intervention: Patient was educated in proper exercise technique and purpose for exercises. Reviewed and educated patient on additions/changes for home exercise program and pt is to continue current HEP with increasing ambulation with shoe versus boot. Skilled judgment was provided in selection of appropriate interventions. Correct performance of therapeutic exercises was facilitated with verbal and visual cuing. Patient education as noted. Billing: [facility]: Therapeutic Exercise ([id number]): 1:1 time: 45 minutes (3 units: 38-52 mins) Total time: 45 minutes Kat Milton PT CNTHERAPY Observed: 02/18/2018 Status: COMPLETED Source: [place] 8:00 AM [facility] REPOSITORY OT/PT/Speech Visit (PTWS) CARORENAE ([id number]) 1955 F Date Time Provider Department 02/18/18 8:00 AM KAT MILTON (PT) PTWS Date Time Provider Department Center 02/18/2018 8:00 AM [id number] MILTON (PT) PTWS [facility] Reason for Visit: Physical Therapy [503] Primary Visit Diagnosis:Arthritis, midfoot [M19.079] Allergies As of Date: 02/18/2018 Noted Allergy Reaction ADHESIVE TAPE (ROSINS) 02/13/2006 2 - Rash Comments: tore skin/blisters MORPHINE 02/05/2006 5 - Intolerance Comments: vomiting, shaking. NSAIDS (NON-STEROIDAL ANTI-INFLAM*10/05/2014 11 - Vomiting VASOTEC (ENALAPRIL MALEATE) 09/08/2008 Comments: nausea/doesn't work Date Reviewed: 02/18/2018 Reviewed by: Elisa Hernandez Ma - Fully Assessed Prescriptions as of 02/18/2018 Sig: ACETAMINOPHEN 500 MG TABLET Take 500 mg by mouth every 8 * ASCORBIC ACID (VITAMIN C) 500* Take 500 mg by mouth three ti* * B COMPLEX 1 TABLET Take one(1) tablet daily. CELECOXIB 200 MG CAPSULE Take 200 mg by mouth as neede* CHOLECALCIFEROL (VITAMIN D3) * Take 2,000 Units by mouth onc* CLOBETASOL 0.05 % TOPICAL CRE* as directed CPAP AutoPAP 10-20 cmH2O, suitable* CPAP CHIN STRAP, USED WITH CPAP DE* CYCLOBENZAPRINE 10 MG TABLET PROLIA SUBCUTANEOUS Inject subcutaneously once e* DICLOFENAC 1 % TOPICAL GEL apply topically 4 grams to fo* * FENTANYL 50 MCG/HR TRANSDERMA* Apply as directed. Change pat* FERROUS SULFATE 325 MG (65 MG* Take 325 mg by mouth daily wi* FLUTICASONE 50 MCG/ACTUATION * Use 1 [place] in each nostril d* * GABAPENTIN 300 MG CAPSULE Take 300 mg by mouth three ti* HYDROXYCHLOROQUINE 200 MG TAB* Take 1 tablet by mouth twice * LEFLUNOMIDE 20 MG TABLET Take 1 tablet by mouth once d* LEVOTHYROXINE 75 MCG TABLET Take 1 tablet by mouth daily * * ATIVAN 1 MG TABLET takes 1/2 tab as needed MAGNESIUM OXIDE 500 MG TABLET Taking 250mg. Take two tablet* * MULTIVITAMIN,TX-MINERALS TABL* 1 tab daily * PROMETHAZINE 25 MG TABLET Take one(1) tablet every four* Progress Notes: Kat Milton, PT 02/18/2018 10:13 AM Signed Episode Visit Count: 44 Therapist That Will Oversee The Plan Of Care: Kat Milton Start of Care Date: 07/14/17 Onset Date: 02/17/17 Patient Identified by Name and Date of : Yes REHABILITATION AND SPORTS THERAPY PHYSICAL THERAPY TREATMENT NOTE ASSESSMENT: Renae Elizondo demonstrated difficulty with gait and ankle AROM and improvements in gait by end of session. The patient will continue to benefit from continued skilled physical therapy for AROM, strengthening and gait. PLAN FOR NEXT VISIT: Possible POC update next visit. Progress as tolerated. SUBJECTIVE: Pt reports she fell yesterday in her kitchen and landed on her R knee. She states she had more soreness last night and still this morning is more painful in foot and sore all over. She feels the swelling has reduced, but is still puffed up in the back some. She has a follow up appt with Dr. Macias following this therapy visit. Pain Score: 7/10 Pain Location: Foot - Left Post Treatment Pain Score: 8/10 (7.5-8/10) Pain Location: Foot - Left Post Treatment Pain Description: (more shaky than sharp pain) OBJECTIVE MEASURES WITH LEVEL OF FUNCTION: Gait Gait Observation: Pt ambulating with shoes adn small base quad cane. She demonstrates slightly decreased heel strike and push off today, but this improved by the end of the session. Slightly decreased luis miguel and increased guarding overall. TREATMENT: Therapeutic Exercise: 1: Ambulation with quad cane and focus on symmetrical weight bearing, trunk posture and heel strike/toe off x 70ft. 2: Toe curls left x 2 minutes. 3: TOGA exercises for foot: toe abduction, toe adduction, great toe extension with 2-4 toes pressing into the floor and 2nd-4th toe extension with 1st and 5 th toe on floor 1x15 each 4: Standing BAPS PWB ball 3, pegs on A/P, lateral and cw and ccw x 15 each. 5: foam square lateral step-ups stepping up and over each direction 2x10 reps with B UE assist on parallel bars 6: foam square forward step-ups leading with right and left leg 1 x 15 reps each leg with UE assist. 7: balance board lateral and A/P side touches Skilled Intervention: Patient was educated in proper exercise technique and purpose for exercises. Reviewed and educated patient on additions/changes for home exercise program and pt is to continue current HEP with increasing ambulation with shoe versus boot. Skilled judgment was provided in selection of appropriate interventions. Correct performance of therapeutic exercises was facilitated with verbal and visual cuing. Patient education as noted. Billing: [facility]: Therapeutic Exercise ([id number]): 1:1 time: 45 minutes (3 units: 38-52 mins) Total time: 45 minutes Kat Milton PT PROGRESS Observed: 02/13/2018 Status: COMPLETED Source: [place] 8:02 AM [facility] [place] REPOSITORY HNO ID: [id number] Author: Kat (Pt) Yoan Service: (none) Author Type: Physical Therapist Type: Progress Notes Filed: 02/13/2018 9:07 AM Note Text: Episode Visit Count: 43 Therapist That Will Oversee The Plan Of Care: Kat Milton Start of Care Date: 07/14/17 Onset Date: 02/17/17 Patient Identified by Name and Date of : Yes REHABILITATION AND SPORTS THERAPY PHYSICAL THERAPY TREATMENT NOTE ASSESSMENT: Renae Elizondo demonstrated difficulty with continued foot stiffness and pain and improvements in progression of exercises today. The patient will continue to benefit from continued skilled physical therapy for AROM, strengthening and gait progression. PLAN FOR NEXT VISIT: SUBJECTIVE: Pt reports she has been doing more walking the past couple of days as they have been out shopping for a new refrigerator. She notes her foot feels a little more stiff today. Pain Score: 6/10 Pain Location: Foot - Left Description: Aching (stiff) Post Treatment Pain Score: 7/10 Pain Location: Foot - Left Post Treatment Pain Description: Aching (loosened up) OBJECTIVE MEASURES WITH LEVEL OF FUNCTION: LE Strength L Ankle Inversion: 4/5 (no pain) L Ankle Eversion: 4/5 (pain) TREATMENT: Therapeutic Exercise: 1: Ambulation with quad cane and focus on symmetrical weight bearing, trunk posture and heel strike/toe off x 70ft. 2: Toe curls left x 2 minutes. 3: TOGA exercises for foot: toe abduction, toe adduction, great toe extension with 2-4 toes pressing into the floor and 2nd-4th toe extension with 1st and 5 th toe on floor 1x15 each 4: Standing BAPS PWB ball 3, pegs on A/P, lateral and cw and ccw x 15 each. 5: foam square lateral step-ups stepping up and over each direction 2x10 reps with B UE assist on parallel bars 6: foam square forward step-ups leading with right and left leg 1 x 10 reps each leg with UE assist. 7: Wide JUAN CARLOS with blue physioball toss against Rebounder x 20 with SBA. 8: Ambulation with quad cane and focus on symmetrical weight bearing, trunk posture and heel strike/toe off x 70ft. Skilled Intervention: Patient was educated in proper exercise technique and purpose for exercises. Reviewed and educated patient on additions/changes for home exercise program and pt is to continue with and progress reps/sets/frequency of HEP. Encouraged pt to walk with her shoes on as much as she can and use the boot less and less. Skilled judgment was provided in selection of appropriate interventions. Correct performance of therapeutic exercises was facilitated with verbal and visual cuing. Patient education as noted. Billing: [facility]: Therapeutic Exercise ([id number]): 1:1 time: 55 minutes (4 units: 53-67 mins) Total time: 55 minutes Kat Milton PT CNTHERAPY Observed: 02/13/2018 Status: COMPLETED Source: [place] 8:00 AM [facility] REPOSITORY OT/PT/Speech Visit (PTWS) RENAE ELIZONDO ([id number]) 1955 F Date Time Provider Department 02/13/18 8:00 AM KAT MILTON (PT) PTWS Date Time Provider Department Center 02/13/2018 8:00 AM [id number] MILTON (PT) PTWS [facility] Reason for Visit: Physical Therapy [503] Primary Visit Diagnosis:Arthritis, midfoot [M19.079] Allergies As of Date: 02/13/2018 Noted Allergy Reaction ADHESIVE TAPE (ROSINS) 02/13/2006 2 - Rash Comments: tore skin/blisters MORPHINE 02/05/2006 5 - Intolerance Comments: vomiting, shaking. NSAIDS (NON-STEROIDAL ANTI-INFLAM*10/05/2014 11 - Vomiting VASOTEC (ENALAPRIL MALEATE) 09/08/2008 Comments: nausea/doesn't work Date Reviewed: 02/09/2018 Reviewed by: Nataliia Ceron - Fully Assessed Prescriptions as of 02/13/2018 Sig: ACETAMINOPHEN 500 MG TABLET Take 500 mg by mouth every 8 * ASCORBIC ACID (VITAMIN C) 500* Take 500 mg by mouth three ti* * B COMPLEX 1 TABLET Take one(1) tablet daily. CELECOXIB 200 MG CAPSULE Take 200 mg by mouth as neede* CHOLECALCIFEROL (VITAMIN D3) * Take 2,000 Units by mouth onc* CLOBETASOL 0.05 % TOPICAL CRE* as directed CPAP AutoPAP 10-20 cmH2O, suitable* CPAP CHIN STRAP, USED WITH CPAP DE* CYCLOBENZAPRINE 10 MG TABLET PROLIA SUBCUTANEOUS Inject subcutaneously once e* DICLOFENAC 1 % TOPICAL GEL apply topically 4 grams to fo* * FENTANYL 50 MCG/HR TRANSDERMA* Apply as directed. Change pat* FERROUS SULFATE 325 MG (65 MG* Take 325 mg by mouth daily wi* FLUTICASONE 50 MCG/ACTUATION * Use 1 [place] in each nostril d* * GABAPENTIN 300 MG CAPSULE Take 300 mg by mouth three ti* HYDROXYCHLOROQUINE 200 MG TAB* Take 1 tablet by mouth twice * LEFLUNOMIDE 20 MG TABLET Take 1 tablet by mouth once d* LEVOTHYROXINE 50 MCG TABLET Take 50 mcg by mouth daily be* * ATIVAN 1 MG TABLET takes 1/2 tab as needed MAGNESIUM OXIDE 500 MG TABLET Taking 250mg. Take two tablet* * MULTIVITAMIN,TX-MINERALS TABL* 1 tab daily * PROMETHAZINE 25 MG TABLET Take one(1) tablet every four* Progress Notes: Kat Yoan, PT 02/13/2018 9:07 AM Signed Episode Visit Count: 43 Therapist That Will Oversee The Plan Of Care: Kat Milton Start of Care Date: 07/14/17 Onset Date: 02/17/17 Patient Identified by Name and Date of : Yes REHABILITATION AND SPORTS THERAPY PHYSICAL THERAPY TREATMENT NOTE ASSESSMENT: Renae Elizondo demonstrated difficulty with continued foot stiffness and pain and improvements in progression of exercises today. The patient will continue to benefit from continued skilled physical therapy for AROM, strengthening and gait progression. PLAN FOR NEXT VISIT: SUBJECTIVE: Pt reports she has been doing more walking the past couple of days as they have been out shopping for a new refrigerator. She notes her foot feels a little more stiff today. Pain Score: 6/10 Pain Location: Foot - Left Description: Aching (stiff) Post Treatment Pain Score: 7/10 Pain Location: Foot - Left Post Treatment Pain Description: Aching (loosened up) OBJECTIVE MEASURES WITH LEVEL OF FUNCTION: LE Strength L Ankle Inversion: 4/5 (no pain) L Ankle Eversion: 4/5 (pain) TREATMENT: Therapeutic Exercise: 1: Ambulation with quad cane and focus on symmetrical weight bearing, trunk posture and heel strike/toe off x 70ft. 2: Toe curls left x 2 minutes. 3: TOGA exercises for foot: toe abduction, toe adduction, great toe extension with 2-4 toes pressing into the floor and 2nd-4th toe extension with 1st and 5 th toe on floor 1x15 each 4: Standing BAPS PWB ball 3, pegs on A/P, lateral and cw and ccw x 15 each. 5: foam square lateral step-ups stepping up and over each direction 2x10 reps with B UE assist on parallel bars 6: foam square forward step-ups leading with right and left leg 1 x 10 reps each leg with UE assist. 7: Wide JUAN CARLOS with blue physioball toss against Rebounder x 20 with SBA. 8: Ambulation with quad cane and focus on symmetrical weight bearing, trunk posture and heel strike/toe off x 70ft. Skilled Intervention: Patient was educated in proper exercise technique and purpose for exercises. Reviewed and educated patient on additions/changes for home exercise program and pt is to continue with and progress reps/sets/frequency of HEP. Encouraged pt to walk with her shoes on as much as she can and use the boot less and less. Skilled judgment was provided in selection of appropriate interventions. Correct performance of therapeutic exercises was facilitated with verbal and visual cuing. Patient education as noted. Billing: [facility]: Therapeutic Exercise ([id number]): 1:1 time: 55 minutes (4 units: 53-67 mins) Total time: 55 minutes Kat Milton PT DEXA BONE DENSITY Observed: 02/11/2018 Status: F Source: [place] [facility] 11:28 AM [facility] REPOSITORY [facility] Imaging Services [address] [place] [id number] Dexa Bone Density Study MR#: [id number] Acct: [id number] Name: RENAE ELIZONDO Rep #: [id number] : 1955 F 62 From: Luis Miguel Gustafson MD PCP: Elisa Baxter MD Status: REG CLI Study: Dexa Bone Density Study Date of Exam: 02/11/18 Exam# [id number] Ordering Dr: Elisa Baxter MD STUDY: DUAL ENERGY X-RAY ABSORPTIOMETRY / DXA REASON FOR EXAM: Female, 62 years old. Early menopause. Loss of height. TECHNIQUE: Bone Mineral Density (BMD) measurements of lumbar spine and bilateral hips were obtained. COMPARISON: Comparison is made with prior study dated January 23, 2016. FINDINGS: Lumbar Spine (L1-L4): g/cm2 (1.091) / T-score (-0.9) / Z-score (0.5) Findings are suggestive of normal bone density with a low fracture risk. Increased thoracic kyphosis. Left Femur Total: g/cm2 (0.778) / T-score (-1.8) / Z- score (-0.8) Left Femoral Neck: g/cm2 (0.746) / T-score (-2.1) / Z- score (-0.8) Right Femur Total: g/cm2 (0.791) / T-score (-1.7) / Z- score (-0.7) Right Femoral Neck: g/cm2 (0.733) / T-score (-2.2) / Z-score (-0.8) The T-Scores on the most recent prior examination were: Lumbar Spine (L1-L4): There has been improvement of bone density since the previous examination. Left Femur Total: which represents an improvement of 7.8%. Right Femur Total: which represents an improvement of 11.4%. BD/Dexa Bone Density Study IMPRESSION: The patient is considered osteopenic as outlined below according to World Juan Organization (WHO) criteria with a moderate fracture risk. There has been improvement of bone density since the previous examination. Reference Information: The T-score is the number of standard deviations above or below the standard which is normal for young adults at their peak bone mineral density. The World Health Organization (WHO) interprets the T-scores as follows: Above -1 Normal bone density Between -1 and -2.5 Osteopenia Equal to / or below -2.5 Osteoporosis As a practical clinical guideline, osteopenia may be graded as follows: Mild -1 through -1.5 Moderate -1.6 through -2.0 Severe -2.1 through -2.4 The Z-score is the number of standard deviations above or below age-matched controls. A Z-score of less than -1.5 would be considered abnormal. References: 1. NIH Osteoporosis and Related Bone Diseases http://www.osteo.org 2. International Society for Clinical Densitometry http://www.iscd.org 3. National Osteoporosis Foundation http://www.nof.org Electronically Signed: Luis Miguel Gustafson MD at 8:59 EST Tel [phone], Service support , CC: Elisa Baxter MD 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: Signed PROGRESS Observed: 02/11/2018 Status: COMPLETED Source: [place] 8:53 AM [facility] REPOSITORY [facility] ID: [id number] Author: Kat (Pt) Yoan Service: (none) Author Type: Physical Therapist Type: Progress Notes Filed: 02/11/2018 10:11 AM Note Text: Episode Visit Count: 42 Therapist That Will Oversee The Plan Of Care: Kat Milton Start of Care Date: 07/14/17 Onset Date: 02/17/17 Patient Identified by Name and Date of : Yes REHABILITATION AND SPORTS THERAPY PHYSICAL THERAPY TREATMENT NOTE ASSESSMENT: Renae Elizondo demonstrated improvements in L foot edema and quality of gait. The patient will continue to benefit from continued skilled physical therapy for AROM, strengthening and gait. PLAN FOR NEXT VISIT: Continue to progress strengthening, AROM and advanced weight bearing activities. SUBJECTIVE: Pt states she saw her arthritis doctor who was surprised she was doing so well for the extent of the arthritis in her foot. She notes it feels harder to go up and down the steps in the cold. Pt states overall, she feels the sharp pains have pretty much gone away and the pain is more the aching and tightness. Pain Score: 6/10 Pain Location: Foot - Left (great toe across top of foot) Description: Aching Post Treatment Pain Score: 7/10 Pain Location: Foot - Left OBJECTIVE MEASURES WITH LEVEL OF FUNCTION: Ankle Observations Comments: 2 above mall: L 23; B mall: L 28.5; heel: L 34; midfoot: L 25.5; MTP: L 25.5. Gait Gait Observation: Pt demonstrates good improvements in quality of gait, with more symmetrical weight bearing, increased heel strike and push off, and increased luis miguel. TREATMENT: Therapeutic Exercise: 1: Toe curls left x 2 minutes. 2: TOGA exercises for foot: toe abduction, toe adduction, great toe extension with 2-4 toes pressing into the floor and 2nd-4th toe extension with 1st and 5 th toe on floor 1x10 each 3: Standing BAPS PWB ball 3, pegs on A/P, lateral and cw and ccw x 10 each. 4: foam square lateral step-ups stepping up and over each direction 2x10 reps with B UE assist. 5: foam square forward step-ups leading with right and left leg 1 x 10 reps each leg with UE assist. 6: Weight shifting on balance board lateral x 30 with // bar assist and SBA from therapist. 7: Ambulation with quad cane and focus on symmetrical weight bearing, trunk posture and heel strike/toe off x 70ft. Skilled Intervention: Patient was educated in proper exercise technique and purpose for exercises. Reviewed and educated patient on additions/changes for home exercise program and pt is to continue with current HEP. Skilled judgment was provided in selection of appropriate interventions. Correct performance of therapeutic exercises was facilitated with verbal and visual cuing. Patient education as noted. Billing: [facility]: Therapeutic Exercise ([id number]): 1:1 time: 50 minutes (3 units: 38-52 mins) Total time: 50 minutes Kat Milton PT CNTHERAPY Observed: 02/11/2018 Status: COMPLETED Source: [place] 8:45 AM [facility] REPOSITORY OT/PT/Speech Visit (PTWS) RENAE ELIZONDO ([id number]) 1955 F Date Time Provider Department 02/11/18 8:45 AM KAT MILTONPT) DILC[place] Date Time Provider Department Center 02/11/2018 8:45 AM [id number] MILTONPT) PTALEXEY [facility] Reason for Visit: Physical Therapy [503] Primary Visit Diagnosis:Arthritis, midfoot [M19.079] Allergies As of Date: 02/11/2018 Noted Allergy Reaction ADHESIVE TAPE (ROSINS) 02/13/2006 2 - Rash Comments: tore skin/blisters MORPHINE 02/05/2006 5 - Intolerance Comments: vomiting, shaking. NSAIDS (NON-STEROIDAL ANTI-INFLAM*10/05/2014 11 - Vomiting VASOTEC (ENALAPRIL MALEATE) 09/08/2008 Comments: nausea/doesn't work Date Reviewed: 02/09/2018 Reviewed by: Nataliia Ceron - Fully Assessed Prescriptions as of 02/11/2018 Sig: ACETAMINOPHEN 500 MG TABLET Take 500 mg by mouth every 8 * ASCORBIC ACID (VITAMIN C) 500* Take 500 mg by mouth three ti* * B COMPLEX 1 TABLET Take one(1) tablet daily. CELECOXIB 200 MG CAPSULE Take 200 mg by mouth as neede* CHOLECALCIFEROL (VITAMIN D3) * Take 2,000 Units by mouth onc* CLOBETASOL 0.05 % TOPICAL CRE* as directed CPAP AutoPAP 10-20 cmH2O, suitable* CPAP CHIN STRAP, USED WITH CPAP DE* CYCLOBENZAPRINE 10 MG TABLET PROLIA SUBCUTANEOUS Inject subcutaneously once e* DICLOFENAC 1 % TOPICAL GEL apply topically 4 grams to fo* * FENTANYL 50 MCG/HR TRANSDERMA* Apply as directed. Change pat* FERROUS SULFATE 325 MG (65 MG* Take 325 mg by mouth daily wi* FLUTICASONE 50 MCG/ACTUATION * Use 1 [place] in each nostril d* * GABAPENTIN 300 MG CAPSULE Take 300 mg by mouth three ti* HYDROXYCHLOROQUINE 200 MG TAB* Take 1 tablet by mouth twice * LEFLUNOMIDE 20 MG TABLET Take 1 tablet by mouth once d* LEVOTHYROXINE 50 MCG TABLET Take 50 mcg by mouth daily be* * ATIVAN 1 MG TABLET takes 1/2 tab as needed MAGNESIUM OXIDE 500 MG TABLET Taking 250mg. Take two tablet* * MULTIVITAMIN,TX-MINERALS TABL* 1 tab daily * PROMETHAZINE 25 MG TABLET Take one(1) tablet every four* Progress Notes: Kat Milton PT 02/11/2018 10:11 AM Signed Episode Visit Count: 42 Therapist That Will Oversee The Plan Of Care: Kat Milton Start of Care Date: 07/14/17 Onset Date: 02/17/17 Patient Identified by Name and Date of : Yes REHABILITATION AND SPORTS THERAPY PHYSICAL THERAPY TREATMENT NOTE ASSESSMENT: Renae Elizondo demonstrated improvements in L foot edema and quality of gait. The patient will continue to benefit from continued skilled physical therapy for AROM, strengthening and gait. PLAN FOR NEXT VISIT: Continue to progress strengthening, AROM and advanced weight bearing activities. SUBJECTIVE: Pt states she saw her arthritis doctor who was surprised she was doing so well for the extent of the arthritis in her foot. She notes it feels harder to go up and down the steps in the cold. Pt states overall, she feels the sharp pains have pretty much gone away and the pain is more the aching and tightness. Pain Score: 6/10 Pain Location: Foot - Left (great toe across top of foot) Description: Aching Post Treatment Pain Score: 7/10 Pain Location: Foot - Left OBJECTIVE MEASURES WITH LEVEL OF FUNCTION: Ankle Observations Comments: 2 above mall: L 23; B mall: L 28.5; heel: L 34; midfoot: L 25.5; MTP: L 25.5. Gait Gait Observation: Pt demonstrates good improvements in quality of gait, with more symmetrical weight bearing, increased heel strike and push off, and increased luis miguel. TREATMENT: Therapeutic Exercise: 1: Toe curls left x 2 minutes. 2: TOGA exercises for foot: toe abduction, toe adduction, great toe extension with 2-4 toes pressing into the floor and 2nd-4th toe extension with 1st and 5 th toe on floor 1x10 each 3: Standing BAPS PWB ball 3, pegs on A/P, lateral and cw and ccw x 10 each. 4: foam square lateral step-ups stepping up and over each direction 2x10 reps with B UE assist. 5: foam square forward step-ups leading with right and left leg 1 x 10 reps each leg with UE assist. 6: Weight shifting on balance board lateral x 30 with // bar assist and SBA from therapist. 7: Ambulation with quad cane and focus on symmetrical weight bearing, trunk posture and heel strike/toe off x 70ft. Skilled Intervention: Patient was educated in proper exercise technique and purpose for exercises. Reviewed and educated patient on additions/changes for home exercise program and pt is to continue with current HEP. Skilled judgment was provided in selection of appropriate interventions. Correct performance of therapeutic exercises was facilitated with verbal and visual cuing. Patient education as noted. Billing: [facility]: Therapeutic Exercise ([id number]): 1:1 time: 50 minutes (3 units: 38-52 mins) Total time: 50 minutes Kat Milton, PT CBC Collected: 02/09/2018 Status: F Source: [place] 3:06 PM [facility] [place] REPOSITORY TYPE CODE TESTS RESULT OUT OF REFERENCE UNITS RANGE LAB WBC 3.70-11.00 k/uL WBC 3.96 LAB RBC 3.90-5.20 m/uL Low RBC 3.62 LAB HGB 11.5-15.5 g/dL Hemoglobin 11.5 LAB HCT 36.0-46.0 % Hematocrit 37.4 LAB MCV 80.0-100.0 fL MCV High 103.3 LAB MCH 26.0-34.0 pG MCH 31.8 LAB MCHC 30.5-36.0 g/dL MCHC 30.7 LAB RDWCV 11.5-15.0 % RDW-CV 12.6 LAB PLTCT 150-400 k/uL Platelet Count 211 LAB MPV 9.0-12.7 fL MPV 10.0 COMP METABOLIC PANEL Collected: 02/09/2018 Status: F Source: [place] 3:06 PM [facility] [place] REPOSITORY TYPE CODE TESTS RESULT OUT OF REFERENCE UNITS RANGE LAB TP 6.0-8.4 g/dL Protein, Total 6.9 LAB ALB 3.5-5.0 g/dL Albumin 3.9 LAB CA 8.5-10.5 mg/dL Calcium, Total 9.4 LAB TBIL 0.2-1.3 mg/dL Bilirubin, Total 0.4 LAB ALKP 34-123 U/L Alkaline Phosphatase 84 LAB AST 7-40 U/L AST 28 LAB GLU 65-100 mg/dL Glucose High 102 LAB BUN 8-25 mg/dL BUN 10 LAB CRET 0.70-1.40 mg/dL Creatinine Low 0.60 LAB NA 132-148 mmol/L Sodium 142 LAB K 3.5-5.0 mmol/L Potassium 4.2 LAB CL 98-110 mmol/L Chloride 103 LAB CO2 23-32 mmol/L CO2 27 LAB AGAP 9-18 mmol/L Anion Gap 12 LAB ALT 0-45 U/L ALT 21 LAB GFRAA eGFR- >60 Amer. LAB GFRNAA . eGFR-All Other Races >60 Result Comment: eGFR (Estimated GFR) Units of measure: mL/min/1.73 meters squared eGFR is derived from the reexpressed MDRD Study equation using the following parameters: serum creatinine, age, gender and race. The creatinine assay has been calibrated to be traceable to IDMS. An eGFR <60 mL/min/1.73m2 for >3 months is consistent with chronic kidney disease. Refer to KDOQI guidelines for clinical interpretation. In patients with unstable renal function, e.g. those with acute kidney injury, the eGFR may not accurately reflect actual GFR. 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 Hunter Prior Pertinent History Pulmonary sacroid-> Abnormal CT Chest with Multiple Scattered Nodules seen on the right lung on CT Chest September 16, 2014 Received steroids at that time. Complicated by -> Hx of poorly differentiated ductal carcinoma of the right breast diagnosed in January 2006 s/p Right Modified Radical mastectomy August 27, 2006 s/p neoadjuvant chemotherapy AND RT to chest wall and axilla 12/01/06. Sacroid, (known prior). Arava was initiated 01/2016 jnt pain. 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 Ankle surgery done-> left TN fusion 02/17/2017 DDD 01/2017 we did her x rays-> IMPRESSION: Diffuse thoracic spondylosis, dorsolumbar spondylosis, ?with moderate thoracic kyphosis. ?Multilevel lumbar degenerative facet arthritis with 6 mm degenerative spondylolisthesis of L4 and 3 mm degenerative spondylolisthesis of L5 Bone health- Treatment prolia (not by Rheum), DXA ordered in 2016 (none prior) The prolia is given by her PCP.She had the DXA done last year by PCP and was told + osteoporosis. Takes a calcium supplement and Mag supplements. Last evaluated in Nov by Dr. Hunter- Treatment Arava 20 mg/d + Plaquenil 200 mg BID. She has bilateral cortisone shoulder injections. She is still using a boot for the left ankle, has been on year since her surgery, it has been a long recovery process. Pain is better from her surgery. there is still quite a bit of swelling of the foot, she can bear wt on it. DMARDs are the same She just had her eye exam- was told plaquenil is fine, she is having glaring at night. States was told she has some mild cataracts, she is told there is some swelling of the back of the eye. there is some pain of the left orbit. she will see another specialist next week. Arava is going fine, tolerated well. No recent infections. Other joints are stable. Medications Current Outpatient Prescriptions: hydroxychloroquine (PLAQUENIL) 200 mg tablet Take 1 tablet by mouth twice daily. diclofenac sodium (VOLTAREN) 1 % topical gel apply topically 4 grams to foot four times a day leflunomide (ARAVA) 20 mg tablet Take 1 tablet by mouth once daily. cholecalciferol (VITAMIN D-3) 2,000 unit tablet Take 2,000 Units by mouth once daily. DENOSUMAB (PROLIA SUBCUTANEOUS) Inject subcutaneously once every 6 months. celecoxib (CELEBREX) 200 mg capsule Take 200 mg by mouth as needed. Magnesium Oxide 500 mg tab Taking 250mg. Take two tablets by mouth once daily. acetaminophen (TYLENOL EXTRA STRENGTH) 500 mg tablet Take 500 mg by mouth every 8 hours as needed. CPAP CHIN STRAP, USED WITH CPAP DEVICE fluticasone (FLONASE) 50 mcg/actuation nasal spray Use 1 [place] in each nostril daily at bedtime. ferrous sulfate 325 mg (65 mg iron) tablet Take 325 mg by mouth daily with breakfast. ascorbic acid (VITAMIN C) 500 mg tablet Take 500 mg by mouth three times daily. CPAP AutoPAP 10-20 cmH2O, suitable mask, humidity, filters. Lifetime supplies. Dx: 327.23. Fax compliance rpt to [phone] in 4-6 weeks. cyclobenzaprine (FLEXERIL) 10 mg tablet levothyroxine (LEVOTHROID) 50 mcg tablet Take 50 mcg by mouth daily before breakfast. CLOBETASOL 0.05 % cream as directed gabapentin 300 mg capsule Take 300 mg by mouth three times daily. PROMETHAZINE 25 MG TAB Take one(1) tablet every four(4) to six(6) hours as needed for nausea. lorazepam(ATIVAN 1 MG TAB) takes 1/2 tab as needed fentanyl 50 mcg/hr TRANSDERM. PT72 Apply as directed. Change patch every 3 days. B COMPLEX 1 TAB Take one(1) tablet daily. MULTIVITAMIN,TX-MINERALS TAB 1 tab daily No current facility-administered medications for this visit. REVIEW OF SYSTEMS: February 09, 2018 CONSTITUTIONAL: Fever: No Fatigue: Yes Pain: Yes EYES: Pain: Yes Redness: No Loss of vision: Yes Dryness: Yes EAR, NOSE, MOUTH, THROAT: Nose bleeds: No Hearing loss: No Sores in mouth: No Swallowing problems: No Dry mouth: Yes CARDIOVASCULAR: Chest pain: No Swelling in the feet or legs: Yes RESPIRATORY: Shortness of breath: No Pain with breathing: No Chronic cough: No Coughing up blood: No , GASTROINTESTINAL: Heartburn: No Nausea: Yes Diarrhea: Yes Blood in the stool or black stool: No Abdominal pain: No GENITOURINARY: Blood in urine: No Pain or burning on urination: No] MUSCULOSKELETAL: Joint pain: Yes Joint swelling: Yes Morning stiffness in joints: Yes Muscle weakness: Yes Back pain: Yes SKIN: Rashes: No Sun sensitive rashes: No Color changes of hands or feet in the cold: Yes Hair loss: Yes Nail changes: No NEUROLOGICAL: Headaches: Yes Dizziness: Yes Numbness or tingling: Yes Memory loss: Yes Seizures: No HEMATOLOGIC/LYMPHATIC: Swollen glands: No Anemia: Yes ALLERGIES/IMMUNOLOGIC: Allergies (other than medications): Yes Increased susceptibility to infection: No KNOWN MEDICAL CONDITIONS: Diabetes: No Thyroid disease: Yes High blood pressure: No PROMIS? (Patient-Reported Outcomes Measurement Information System) is a set of person-centered measures that evaluates and monitors physical, social, and emotional health. It can be used with the general population and with individuals living with chronic conditions. February 09, 2018 PROMIS 10: PHYSICAL AND MENTAL HEALTH: PROMIS PAIN, FATIGUE, FUNCTIONAL STATUS: PROMIS Pain Interference T Score: 68.16 PROMIS Pain Interference Percentile: 3.44 PROMIS Fatigue T Score: 64.56 PROMIS Fatigue Percentile: 7.21 PROMIS Functional Status T Score: 34.66 PROMIS Functional Status Percentile: 6.3 RAPID 3: DISEASE ACTIVITY: Weighed Score Levels: 0 - 1: Near Remission 1.3 - 2.0: Low Severity 2.3 - 4.0: Moderate Severity 4.3 - 10.0: High Severity SCORES: RAPID 3 Functional Status Subscore: 4.3 RAPID 3 Pain Tolerance Subscore: 7 RAPID 3 Global Estimate Subscore: 6 RAPID 3 Cumulative Score: 17.3 RAPID 3 Weighed Score: 5.8 Pertinent PFSH: FAMILY HISTORY Problem Relation Age of Onset - Diabetes Mother - Colon Cancer Mother pancreatic cancer - Cancer Mother pancreatic - Colon Cancer Father at age 75 or 76 - Cancer Father - other (Parkinson's disease) Father - Diabetes Brother - Diabetes Paternal Grandmother - Diabetes Maternal Grandmother - Ischemic Heart Disease Maternal Grandfather - Hypertension Sister - Hypertension Brother - Stroke Paternal Grandfather - Allergies Sister - Allergies Brother - Cancer Sister uterine/ lung/ liver - Cancer Brother melanoma/ brain/ tongue PAST MEDICAL HISTORY Diagnosis Date - Anemia - Hypothyroidism - Malignant neoplasm of breast (female), unspecified site - Obstructive sleep apnea - Other and unspecified diseases of upper respiratory tract - RA (rheumatoid arthritis) (HCC) - S/P gastric bypass - Sarcoidosis (HCC) PAST SURGICAL HISTORY Procedure Laterality Date - APPENDECTOMY 2000 Done with gastric bypass - COLONOSCOP W/ OR W/O BRSH SPEC 12/05/2008,12 Colonoscopy - FUSION FINGER JOINT Right 09/05/2017 Right index and middle fingers DIP joint fusion, Right 5th finger PIP joint fusion - GASTRIC BYPASS-MORBID OBESITY 2001 - MASTECTOMY, MODIFIED RADICAL 08/27/2006 Right MRM - PAST SURGICAL HISTORY OF 2000 venous ligation leg - PAST SURGICAL HISTORY OF Carpal Tunnel - PAST SURGICAL HISTORY OF Left thumb repair - PAST SURGICAL HISTORY OF port acath LEFT - PAST SURGICAL HISTORY OF removal of port - PAST SURGICAL HISTORY OF Left 01/2017 lt 2nd AND 3rd digit repair - OR ANESTH,REPAIR LO ABD HERNIA NOS - OR ANESTH,VAGINAL HYSTERECTOMY 2003 BSO - REMOVAL GALLBLADDER 1992 Cholecystectomy Social History Marital status: Spouse name: Years of education: Number of children: Social History Main Topics Smoking status: Never Smoker Smokeless tobacco: Never Used Alcohol use: Yes Comment: occasionally glass wine or mixed drink Drug use: No Sexual activity: Yes Partners with: Male ) LABS Hemoglobin (g/dL) Date Value 01/29/2018 11.4 Hematocrit (%) Date Value 01/29/2018 36.9 WBC (k/uL) Date Value 01/29/2018 5.08 Glucose (mg/dL) Date Value 11/10/2017 95 Potassium (mmol/L) Date Value 11/10/2017 4.4 Sodium (mmol/L) Date Value 11/10/2017 140 Chloride (mmol/L) Date Value 11/10/2017 102 CO2 (mmol/L) Date Value 11/10/2017 26 Creatinine (mg/dL) Date Value 11/10/2017 0.58 BUN (mg/dL) Date Value 11/10/2017 11 Anion Gap (mmol/L) Date Value 11/10/2017 12 Calcium (mg/dL) Date Value 11/10/2017 8.4 Protein, Total (g/dL) Date Value 11/10/2017 6.4 Albumin (g/dL) Date Value 11/10/2017 3.9 Bilirubin, Total (mg/dL) Date Value 11/10/2017 0.5 Alkaline Phosphatase (U/L) Date Value 11/10/2017 67 AST (U/L) Date Value 11/10/2017 24 ALT (U/L) Date Value 11/10/2017 16 No results found for: WSR No results found for: CRP PHYSICAL EXAM BP 143/82 Pulse 83 Resp 16 Ht 152.4 cm (5') Wt 94.8 kg (209 lb) BMI 40.82 kg/m? Physical Exam: APPEARANCE Well appearing, alert, in no acute distress, well-hydrated, well nourished. EYES PERRLA, conjunctiva and sclera normal. EARS External ears normal, canals clear HEART RRR with normal S1 and S2, no murmurs, no gallops, no JVD appreciated LUNG clear to auscultation EXTREMITIES Extremities normal, No deformities, No skin discoloration and No edema + lumbar low back pain, OA of hands- some fullness of 1, 2 mcp bilaterally, s/p fusion left hand 3rd digit. Left foot swollen - entire foot- some rom with dorsiflexion, no redness NEURO Awake, alert and oriented x 3, Cranial nerves II-XII grossly intact, Normal gait and No involuntary motions. SKIN Skin color, texture, turgor normal, no suspicious rashes or lesions MEDICAL DECISION MAKING Assessment: (M06.09) Rheumatoid arthritis of multiple sites with negative rheumatoid factor (HCC) (primary encounter diagnosis) Plan: CBC, COMP METABOLIC PANEL, COMP METABOLIC PANEL Continue Arava 20 mg/d and Plaqeunil 200 mg/d- continue same treatment s/p ankle surgery, recovering well in PT- complex surgery requiring fusion No other changes today Discussed interim labs and montoring Continue prolia with local care MD. At today's visit the patient's disease appears to be stable. Available laboratories were reviewed with the patient. Radiographs were reviewed at todays visit. PLAN: Continue current medications. Pending studies/orders: as noted above Consults: none Monitoring: Continue every 2 months labs Patient instructed to notify provider of any changes in medical condition. Follow-up: 3-4 months 25 minutes spent [id number] with the patient during this office visit during which counseling or coordination of care activities account for more than 50 percent of this office visit. 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 Hunter Prior Pertinent History Pulmonary sacroid-> Abnormal CT Chest with Multiple Scattered Nodules seen on the right lung on CT Chest September 16, 2014 Received steroids at that time. Complicated by -> Hx of poorly differentiated ductal carcinoma of the right breast diagnosed in January 2006 s/p Right Modified Radical mastectomy August 27, 2006 s/p neoadjuvant chemotherapy AND RT to chest wall and axilla 12/01/06. Sacroid, (known prior). Arava was initiated 01/2016 jnt pain. 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 Ankle surgery done-> left TN fusion 02/17/2017 DDD 01/2017 we did her x rays-> IMPRESSION: Diffuse thoracic spondylosis, dorsolumbar spondylosis, ?with moderate thoracic kyphosis. ?Multilevel lumbar degenerative facet arthritis with 6 mm degenerative spondylolisthesis of L4 and 3 mm degenerative spondylolisthesis of L5 Bone health- Treatment prolia (not by Rheum), DXA ordered in 2015 (none prior) The prolia is given by her PCP.She had the DXA done last year by PCP and was told + osteoporosis. Takes a calcium supplement and Mag supplements. Last evaluated in Nov by Dr. Hunter- Treatment Arava 20 mg/d + Plaquenil 200 mg BID. She has bilateral cortisone shoulder injections. She is still using a boot for the left ankle, has been on year since her surgery, it has been a long recovery process. Pain is better from her surgery. there is still quite a bit of swelling of the foot, she can bear wt on it. DMARDs are the same She just had her eye exam- was told plaquenil is fine, she is having glaring at night. States was told she has some mild cataracts, she is told there is some swelling of the back of the eye. there is some pain of the left orbit. she will see another specialist next week. Arava is going fine, tolerated well. No recent infections. Other joints are stable. Medications Current Outpatient Prescriptions: hydroxychloroquine (PLAQUENIL) 200 mg tablet Take 1 tablet by mouth twice daily. diclofenac sodium (VOLTAREN) 1 % topical gel apply topically 4 grams to foot four times a day leflunomide (ARAVA) 20 mg tablet Take 1 tablet by mouth once daily. cholecalciferol (VITAMIN D-3) 2,000 unit tablet Take 2,000 Units by mouth once daily. DENOSUMAB (PROLIA SUBCUTANEOUS) Inject subcutaneously once every 6 months. celecoxib (CELEBREX) 200 mg capsule Take 200 mg by mouth as needed. Magnesium Oxide 500 mg tab Taking 250mg. Take two tablets by mouth once daily. acetaminophen (TYLENOL EXTRA STRENGTH) 500 mg tablet Take 500 mg by mouth every 8 hours as needed. CPAP CHIN STRAP, USED WITH CPAP DEVICE fluticasone (FLONASE) 50 mcg/actuation nasal spray Use 1 [place] in each nostril daily at bedtime. ferrous sulfate 325 mg (65 mg iron) tablet Take 325 mg by mouth daily with breakfast. ascorbic acid (VITAMIN C) 500 mg tablet Take 500 mg by mouth three times daily. CPAP AutoPAP 10-20 cmH2O, suitable mask, humidity, filters. Lifetime supplies. Dx: 327.23. Fax compliance rpt to [phone] in 4-6 weeks. cyclobenzaprine (FLEXERIL) 10 mg tablet levothyroxine (LEVOTHROID) 50 mcg tablet Take 50 mcg by mouth daily before breakfast. CLOBETASOL 0.05 % cream as directed gabapentin 300 mg capsule Take 300 mg by mouth three times daily. PROMETHAZINE 25 MG TAB Take one(1) tablet every four(4) to six(6) hours as needed for nausea. lorazepam(ATIVAN 1 MG TAB) takes 1/2 tab as needed fentanyl 50 mcg/hr TRANSDERM. PT72 Apply as directed. Change patch every 3 days. B COMPLEX 1 TAB Take one(1) tablet daily. MULTIVITAMIN,TX-MINERALS TAB 1 tab daily No current facility-administered medications for this visit. REVIEW OF SYSTEMS: February 09, 2018 CONSTITUTIONAL: Fever: No Fatigue: Yes Pain: Yes EYES: Pain: Yes Redness: No Loss of vision: Yes Dryness: Yes EAR, NOSE, MOUTH, THROAT: Nose bleeds: No Hearing loss: No Sores in mouth: No Swallowing problems: No Dry mouth: Yes CARDIOVASCULAR: Chest pain: No Swelling in the feet or legs: Yes RESPIRATORY: Shortness of breath: No Pain with breathing: No Chronic cough: No Coughing up blood: No , GASTROINTESTINAL: Heartburn: No Nausea: Yes Diarrhea: Yes Blood in the stool or black stool: No Abdominal pain: No GENITOURINARY: Blood in urine: No Pain or burning on urination: No] MUSCULOSKELETAL: Joint pain: Yes Joint swelling: Yes Morning stiffness in joints: Yes Muscle weakness: Yes Back pain: Yes SKIN: Rashes: No Sun sensitive rashes: No Color changes of hands or feet in the cold: Yes Hair loss: Yes Nail changes: No NEUROLOGICAL: Headaches: Yes Dizziness: Yes Numbness or tingling: Yes Memory loss: Yes Seizures: No HEMATOLOGIC/LYMPHATIC: Swollen glands: No Anemia: Yes ALLERGIES/IMMUNOLOGIC: Allergies (other than medications): Yes Increased susceptibility to infection: No KNOWN MEDICAL CONDITIONS: Diabetes: No Thyroid disease: Yes High blood pressure: No PROMIS? (Patient-Reported Outcomes Measurement Information System) is a set of person-centered measures that evaluates and monitors physical, social, and emotional health. It can be used with the general population and with individuals living with chronic conditions. February 09, 2018 PROMIS 10: PHYSICAL AND MENTAL HEALTH: PROMIS PAIN, FATIGUE, FUNCTIONAL STATUS: PROMIS Pain Interference T Score: 68.16 PROMIS Pain Interference Percentile: 3.44 PROMIS Fatigue T Score: 64.56 PROMIS Fatigue Percentile: 7.21 PROMIS Functional Status T Score: 34.66 PROMIS Functional Status Percentile: 6.3 RAPID 3: DISEASE ACTIVITY: Weighed Score Levels: 0 - 1: Near Remission 1.3 - 2.0: Low Severity 2.3 - 4.0: Moderate Severity 4.3 - 10.0: High Severity SCORES: RAPID 3 Functional Status Subscore: 4.3 RAPID 3 Pain Tolerance Subscore: 7 RAPID 3 Global Estimate Subscore: 6 RAPID 3 Cumulative Score: 17.3 RAPID 3 Weighed Score: 5.8 Pertinent PFSH: FAMILY HISTORY Problem Relation Age of Onset - Diabetes Mother - Colon Cancer Mother pancreatic cancer - Cancer Mother pancreatic - Colon Cancer Father at age 75 or 76 - Cancer Father - other (Parkinson's disease) Father - Diabetes Brother - Diabetes Paternal Grandmother - Diabetes Maternal Grandmother - Ischemic Heart Disease Maternal Grandfather - Hypertension Sister - Hypertension Brother - Stroke Paternal Grandfather - Allergies Sister - Allergies Brother - Cancer Sister uterine/ lung/ liver - Cancer Brother melanoma/ brain/ tongue PAST MEDICAL HISTORY Diagnosis Date - Anemia - Hypothyroidism - Malignant neoplasm of breast (female), unspecified site - Obstructive sleep apnea - Other and unspecified diseases of upper respiratory tract - RA (rheumatoid arthritis) (HCC) - S/P gastric bypass - Sarcoidosis (HCC) PAST SURGICAL HISTORY Procedure Laterality Date - APPENDECTOMY 2000 Done with gastric bypass - COLONOSCOP W/ OR W/O BRSH SPEC 12/05/2008,12 Colonoscopy - FUSION FINGER JOINT Right 09/05/2017 Right index and middle fingers DIP joint fusion, Right 5th finger PIP joint fusion - GASTRIC BYPASS-MORBID OBESITY 2000 - MASTECTOMY, MODIFIED RADICAL 08/27/2006 Right MRM - PAST SURGICAL HISTORY OF 2000 venous ligation leg - PAST SURGICAL HISTORY OF Carpal Tunnel - PAST SURGICAL HISTORY OF Left thumb repair - PAST SURGICAL HISTORY OF port acath LEFT - PAST SURGICAL HISTORY OF removal of port - PAST SURGICAL HISTORY OF Left 01/2017 lt 2nd AND 3rd digit repair - OR ANESTH,REPAIR LO ABD HERNIA NOS - OR ANESTH,VAGINAL HYSTERECTOMY 2003 BSO - REMOVAL GALLBLADDER 1993 Cholecystectomy Social History Marital status: Spouse name: Years of education: Number of children: Social History Main Topics Smoking status: Never Smoker Smokeless tobacco: Never Used Alcohol use: Yes Comment: occasionally glass wine or mixed drink Drug use: No Sexual activity: Yes Partners with: Male ) LABS Hemoglobin (g/dL) Date Value 01/29/2018 11.4 Hematocrit (%) Date Value 01/29/2018 36.9 WBC (k/uL) Date Value 01/29/2018 5.08 Glucose (mg/dL) Date Value 11/10/2017 95 Potassium (mmol/L) Date Value 11/10/2017 4.4 Sodium (mmol/L) Date Value 11/10/2017 140 Chloride (mmol/L) Date Value 11/10/2017 102 CO2 (mmol/L) Date Value 11/10/2017 26 Creatinine (mg/dL) Date Value 11/10/2017 0.58 BUN (mg/dL) Date Value 11/10/2017 11 Anion Gap (mmol/L) Date Value 11/10/2017 12 Calcium (mg/dL) Date Value 11/10/2017 8.4 Protein, Total (g/dL) Date Value 11/10/2017 6.4 Albumin (g/dL) Date Value 11/10/2017 3.9 Bilirubin, Total (mg/dL) Date Value 11/10/2017 0.5 Alkaline Phosphatase (U/L) Date Value 11/10/2017 67 AST (U/L) Date Value 11/10/2017 24 ALT (U/L) Date Value 11/10/2017 16 No results found for: WSR No results found for: CRP PHYSICAL EXAM BP 143/82 Pulse 83 Resp 16 Ht 152.4 cm (5') Wt 94.8 kg (209 lb) BMI 40.82 kg/m? Physical Exam: APPEARANCE Well appearing, alert, in no acute distress, well-hydrated, well nourished. EYES PERRLA, conjunctiva and sclera normal. EARS External ears normal, canals clear HEART RRR with normal S1 and S2, no murmurs, no gallops, no JVD appreciated LUNG clear to auscultation EXTREMITIES Extremities normal, No deformities, No skin discoloration and No edema + lumbar low back pain, OA of hands- some fullness of 1, 2 mcp bilaterally, s/p fusion left hand 3rd digit. Left foot swollen - entire foot- some rom with dorsiflexion, no redness NEURO Awake, alert and oriented x 3, Cranial nerves II-XII grossly intact, Normal gait and No involuntary motions. SKIN Skin color, texture, turgor normal, no suspicious rashes or lesions MEDICAL DECISION MAKING Assessment: (M06.09) Rheumatoid arthritis of multiple sites with negative rheumatoid factor (HCC) (primary encounter diagnosis) Plan: CBC, COMP METABOLIC PANEL, COMP METABOLIC PANEL Continue Arava 20 mg/d and Plaqeunil 200 mg/d- continue same treatment s/p ankle surgery, recovering well in PT- complex surgery requiring fusion No other changes today Discussed interim labs and montoring Continue prolia with local care MD. At today's visit the patient's disease appears to be stable. Available laboratories were reviewed with the patient. Radiographs were reviewed at todays visit. PLAN: Continue current medications. Pending studies/orders: as noted above Consults: none Monitoring: Continue every 2 months labs Patient instructed to notify provider of any changes in medical condition. Follow-up: 3-4 months 25 minutes spent [id number] with the patient during this office visit during which counseling or coordination of care activities account for more than 50 percent of this office visit. Maryjane Bower RN CREDIT SPECIALIST Referring Provider: CHUCK HUNTER [[id number]] Allergies As of Date: 02/09/2018 Noted Allergy Reaction ADHESIVE TAPE (ROSINS) 02/13/2006 2 - Rash Comments: tore skin/blisters MORPHINE 02/05/2006 5 - Intolerance Comments: vomiting, shaking. NSAIDS (NON-STEROIDAL ANTI-INFLAM*10/05/2014 11 - Vomiting VASOTEC (ENALAPRIL MALEATE) 09/08/2008 Comments: nausea/doesn't work Date Reviewed: 02/09/2018 Reviewed by: Nataliia Ceron - Fully Assessed Reason for Visit: Recheck [92] Primary Visit Diagnosis:Rheumatoid arthritis of multiple sites with negative rheumatoid factor (HCC) [M06.09] Order(s):CBC [SQCBC] Order #: [id number] STANDING COMP METABOLIC PANEL [SQCMP] Order #: [id number] STANDING leflunomide (ARAVA) 20 mg tabletTake 1 tablet by mouth once daily.Disp: 90 tabletRfl: 3 COMP METABOLIC PANEL [SQCMP] Order #: [id number] FUTURE Prescriptions as of 02/09/2018 Sig: ACETAMINOPHEN 500 MG TABLET Take 500 mg by mouth every 8 * ASCORBIC ACID (VITAMIN C) 500* Take 500 mg by mouth three ti* * B COMPLEX 1 TABLET Take one(1) tablet daily. CELECOXIB 200 MG CAPSULE Take 200 mg by mouth as neede* CHOLECALCIFEROL (VITAMIN D3) * Take 2,000 Units by mouth onc* CLOBETASOL 0.05 % TOPICAL CRE* as directed CPAP AutoPAP 10-20 cmH2O, suitable* CPAP CHIN STRAP, USED WITH CPAP DE* CYCLOBENZAPRINE 10 MG TABLET PROLIA SUBCUTANEOUS Inject subcutaneously once e* DICLOFENAC 1 % TOPICAL GEL apply topically 4 grams to fo* * FENTANYL 50 MCG/HR TRANSDERMA* Apply as directed. Change pat* FERROUS SULFATE 325 MG (65 MG* Take 325 mg by mouth daily wi* FLUTICASONE 50 MCG/ACTUATION * Use 1 [place] in each nostril d* * GABAPENTIN 300 MG CAPSULE Take 300 mg by mouth three ti* HYDROXYCHLOROQUINE 200 MG TAB* Take 1 tablet by mouth twice * LEFLUNOMIDE 20 MG TABLET Take 1 tablet by mouth once d* LEVOTHYROXINE 50 MCG TABLET Take 50 mcg by mouth daily be* * ATIVAN 1 MG TABLET takes 1/2 tab as needed MAGNESIUM OXIDE 500 MG TABLET Taking 250mg. Take two tablet* * MULTIVITAMIN,TX-MINERALS TABL* 1 tab daily * PROMETHAZINE 25 MG TABLET Take one(1) tablet every four* Problem List As Of Date 02/09/2018 Noted Resolved LUMP OR MASS IN BREAST [N63.0] INVALID FOR* MALIG NEOPLASM BREAST-CENTRAL [C50.119] INVALID FOR* SEROMA, POST OP [[id number]] INVALID FOR*09/30/2016 ANEMIA NOS [D64.9] INVALID FOR* Sacroiliac joint pain [M53.3] INVALID FOR* Benign neoplasm of skin of trunk, except scrotu*INVALID FOR* HARRISON (obstructive sleep apnea) AHI 13, but with *INVALID FOR* More... RLS (restless legs syndrome) [G25.81] INVALID FOR* Low ferritin level [R79.0] INVALID FOR* Sarcoidosis (HCC) [D86.9] INVALID FOR* Nasal congestion, nocturnal. 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 Pain in finger of right hand [M79.644] INVALID FOR* More... 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 Obesity, Class III, BMI >= 40 [E66.01] INVALID FOR* Bilateral shoulder pain [M25.511, M25.512] INVALID FOR* Prescriptions ordered this encounter Disp Refills Start End LEFLUNOMIDE 20 MG TABLET 90 t* 3 02/09/2018 Route: ORAL Sig: Take 1 tablet by mouth once daily. Medications Discontinued During This Encounter leflunomide (ARAVA) 20 mg tablet 90 t* 3 07/07/2017 02/09/2018 Route: ORAL Sig: Take 1 tablet by mouth once daily. Disc: Reason for discontinue is not on file. 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 Follow-up and Disposition History Recorded Encounter Status:Closed by MARYJANE BOWER CNP on 02/12/18 PROGRESS Observed: 02/06/2018 Status: COMPLETED Source: [place] 8:04 AM [facility] [place] REPOSITORY HNO ID: [id number] Author: Kat (Pt) Yoan Service: (none) Author Type: Physical Therapist Type: Progress Notes Filed: 02/06/2018 4:02 PM Note Text: Episode Visit Count: 41 Therapist That Will Oversee The Plan Of Care: Kat Mliton Start of Care Date: 07/14/17 Onset Date: 02/17/17 Patient Identified by Name and Date of : Yes REHABILITATION AND SPORTS THERAPY PHYSICAL THERAPY PROGRESS REPORT PLAN OF CARE UPDATE: Assessment: Renae Eilzondo exhibits improvements in L ankle AROM and edema reduction L foot. Overall her gait and weight bearing endurance has improved. Function is intermittently improved depending on aping levels. She continues to be limited with standing, walking in the community, stair negotiation and sleeping. She is progressing slower than expected towards her therapy goals as demonstrated by: pain levels, documented subjective information on progress and documented objective information regarding gait, ADL's, strength and range of motion. She will benefit from continued skilled therapy requiring AROM, stretches, strengthening and advanced weight bearing and gait activities in order to further improve to meet her functional goals. Functional gains: Improved gait quality Increased endurance / activity tolerance Increased independence with HEP Increased ROM Increased strength Decreased focus on pain during session Decreased pain behaviors demonstrated this session Goals for Episode of Care: created on 07/14/17 through 09/13/17 Goals updated on 02/06/2018. [place] in home exercise program. (Met) Patient will decrease pain rating by 2 points to meet minimal clinical important difference for numeric pain rating scale. (Partially Met) Patient will increase active ROM of L ankle to allow pt to improved performance of ADLs and to normalize gait mechanics / gait pattern . (Met) Patient will increase strength of L LE to 4+ to 5/5 to allow for return to prior functional status and normalized gait mechanics. (Partially Met)- progressing Perform community ambulation, stair negotiation and undisturbed sleep with decreased report of symptoms/pain in 8 weeks. (Partially Met) Demonstrate improvement on functional score: Patient will increase his/her score on the Lower Extremity Functional Scale by at least 9 points to indicate a Minimal Clinical Important Difference. (Not Met) Normal gait. (Not Met)-progressing Planned Interventions, Frequency, and Duration: 2x/week, 3 weeks Total Number of Visits Planned: 6 Patient to be seen for Therapeutic exercise;Neuromuscular re-education;Manual therapy;Gait Training;Patient/Family/Caregiver Education PLAN FOR NEXT VISIT: Progress strengthening, AROM and advanced weight bearing activities. SUBJECTIVE: States she is watching how she walks to avoid turning her foot. Pain and swelling have continued intermittently, but today the swelling is better. Prolonged standing and negotiating stairs are the most difficult. She continues to use the Voltaren cream for pain control and is conscious of trying to move her ankle more during ambulation (to improve heel strike and push off). Sleeping is improved, but still limited depending on pain level related to positioning of foot/ankle. Pain Score: 5/10 Pain Location: Foot - Left (great toe across top of foot) Description: Aching;Sharp (Intermittently sharp) Post Treatment Pain Score: 7/10 Pain Location: Foot - Left OBJECTIVE MEASURES WITH LEVEL OF FUNCTION: Posture / Alignment LE Observations: Edema reduced in foot, most noticable laterally, posterior to malleolus. Ankle Observations Ankle Brace/Support: Boot;None (With boot to AND from department, without boot during treatmen) LE AROM L Ankle Dorsiflexion: 10 Degrees L Ankle Plantar Flexion: 50 Degrees L Ankle Inversion: 25 L Ankle Eversion: 7 (tight laterally) LE Strength L Ankle Dorsiflexion (L4): 4+/5 L Ankle Plantar Flexion: 4+/5 L Ankle Inversion: 4/5 (minimal pain) L Ankle Eversion: 4/5 (pain) TREATMENT: Therapeutic Exercise: 1: Toe curls left x 1 minutes. 2: TOGA exercises for foot: toe abduction, toe adduction, great toe extension with 2-4 toes pressing into the floor and 2nd-4th toe extension with 1st and 5 th toe on floor 1x10 each 3: Standing BAPS PWB ball 3, pegs on A/P, lateral and cw and ccw x 10 each. 4: foam square forward step-ups leading with right and left leg 1 x 10 reps each leg with UE assist. 5: foam square lateral step-ups stepping up and over each direction 1x10 reps with B UE assist. Skilled Intervention: Patient was educated in proper exercise technique and purpose for exercises. Reviewed and educated patient on additions/changes for home exercise program Skilled judgment was provided in selection of appropriate interventions. Correct performance of therapeutic exercises was facilitated with verbal and visual cuing. Patient education as noted. Objective measurements and reassessment. Billing: [facility]: Therapeutic Exercise ([id number]): 1:1 time: 40 minutes (3 units: 38-52 mins) Total time: 40 minutes Kat Lemon, PT CNTHERAPY Observed: 02/06/2018 Status: COMPLETED Source: [place] 8:00 AM [facility] [place] REPOSITORY OT/PT/Speech Visit (PTWS) RENAE ELIZONDO ([id number]) 1955 F Date Time Provider Department 02/06/18 8:00 AM KAT MILTON (PT) PTWS Date Time Provider Department Center 02/06/2018 8:00 AM [id number] MILTON (PT) PTWS [facility] Reason for Visit: PT Progress Note [1596] Primary Visit Diagnosis:Arthritis, midfoot [M19.079] Allergies As of Date: 02/06/2018 Noted Allergy Reaction ADHESIVE TAPE (ROSINS) 02/13/2006 2 - Rash Comments: tore skin/blisters MORPHINE 02/05/2006 5 - Intolerance Comments: vomiting, shaking. NSAIDS (NON-STEROIDAL ANTI-INFLAM*10/05/2014 11 - Vomiting VASOTEC (ENALAPRIL MALEATE) 09/08/2008 Comments: nausea/doesn't work Date Reviewed: 11/10/2017 Reviewed by: Milana Humphrey Ma - Fully Assessed Prescriptions as of 02/06/2018 Sig: HYDROXYCHLOROQUINE 200 MG TAB* Take 1 tablet by mouth twice * DICLOFENAC 1 % TOPICAL GEL apply topically 4 grams to fo* LEFLUNOMIDE 20 MG TABLET Take 1 tablet by mouth once d* CHOLECALCIFEROL (VITAMIN D3) * Take 2,000 Units by mouth onc* PROLIA SUBCUTANEOUS Inject subcutaneously once e* CELECOXIB 200 MG CAPSULE Take 200 mg by mouth as neede* MAGNESIUM OXIDE 500 MG TABLET Taking 250mg. Take two tablet* ACETAMINOPHEN 500 MG TABLET Take 500 mg by mouth every 8 * CPAP CHIN STRAP, USED WITH CPAP DE* FLUTICASONE 50 MCG/ACTUATION * Use 1 [place] in each nostril d* FERROUS SULFATE 325 MG (65 MG* Take 325 mg by mouth daily wi* ASCORBIC ACID (VITAMIN C) 500* Take 500 mg by mouth three ti* CPAP AutoPAP 10-20 cmH2O, suitable* CYCLOBENZAPRINE 10 MG TABLET LEVOTHYROXINE 50 MCG TABLET Take 50 mcg by mouth daily be* CLOBETASOL 0.05 % TOPICAL CRE* as directed * GABAPENTIN 300 MG CAPSULE Take 300 mg by mouth three ti* * PROMETHAZINE 25 MG TABLET Take one(1) tablet every four* * ATIVAN 1 MG TABLET takes 1/2 tab as needed * FENTANYL 50 MCG/HR TRANSDERMA* Apply as directed. Change pat* * B COMPLEX 1 TABLET Take one(1) tablet daily. * MULTIVITAMIN,TX-MINERALS TABL* 1 tab daily Progress Notes: Kat Milton, PT 02/06/2018 4:02 PM Signed Episode Visit Count: 41 Therapist That Will Oversee The Plan Of Care: Kat Milton Start of Care Date: 07/14/17 Onset Date: 02/17/17 Patient Identified by Name and Date of : Yes REHABILITATION AND SPORTS THERAPY PHYSICAL THERAPY PROGRESS REPORT PLAN OF CARE UPDATE: Assessment: Renae Elizondo exhibits improvements in L ankle AROM and edema reduction L foot. Overall her gait and weight bearing endurance has improved. Function is intermittently improved depending on aping levels. She continues to be limited with standing, walking in the community, stair negotiation and sleeping. She is progressing slower than expected towards her therapy goals as demonstrated by: pain levels, documented subjective information on progress and documented objective information regarding gait, ADL's, strength and range of motion. She will benefit from continued skilled therapy requiring AROM, stretches, strengthening and advanced weight bearing and gait activities in order to further improve to meet her functional goals. Functional gains: Improved gait quality Increased endurance / activity tolerance Increased independence with HEP Increased ROM Increased strength Decreased focus on pain during session Decreased pain behaviors demonstrated this session Goals for Episode of Care: created on 07/14/17 through 09/13/17 Goals updated on 02/06/2018. [place] in home exercise program. (Met) Patient will decrease pain rating by 2 points to meet minimal clinical important difference for numeric pain rating scale. (Partially Met) Patient will increase active ROM of L ankle to allow pt to improved performance of ADLs and to normalize gait mechanics / gait pattern . (Met) Patient will increase strength of L LE to 4+ to 5/5 to allow for return to prior functional status and normalized gait mechanics. (Partially Met)- progressing Perform community ambulation, stair negotiation and undisturbed sleep with decreased report of symptoms/pain in 8 weeks. (Partially Met) Demonstrate improvement on functional score: Patient will increase his/her score on the Lower Extremity Functional Scale by at least 9 points to indicate a Minimal Clinical Important Difference. (Not Met) Normal gait. (Not Met)-progressing Planned Interventions, Frequency, and Duration: 2x/week, 3 weeks Total Number of Visits Planned: 6 Patient to be seen for Therapeutic exercise;Neuromuscular re-education;Manual therapy;Gait Training;Patient/Family/Caregiver Education PLAN FOR NEXT VISIT: Progress strengthening, AROM and advanced weight bearing activities. SUBJECTIVE: States she is watching how she walks to avoid turning her foot. Pain and swelling have continued intermittently, but today the swelling is better. Prolonged standing and negotiating stairs are the most difficult. She continues to use the Voltaren cream for pain control and is conscious of trying to move her ankle more during ambulation (to improve heel strike and push off). Sleeping is improved, but still limited depending on pain level related to positioning of foot/ankle. Pain Score: 5/10 Pain Location: Foot - Left (great toe across top of foot) Description: Aching;Sharp (Intermittently sharp) Post Treatment Pain Score: 7/10 Pain Location: Foot - Left OBJECTIVE MEASURES WITH LEVEL OF FUNCTION: Posture / Alignment LE Observations: Edema reduced in foot, most noticable laterally, posterior to malleolus. Ankle Observations Ankle Brace/Support: Boot;None (With boot to AND from department, without boot during treatmen) LE AROM L Ankle Dorsiflexion: 10 Degrees L Ankle Plantar Flexion: 50 Degrees L Ankle Inversion: 25 L Ankle Eversion: 7 (tight laterally) LE Strength L Ankle Dorsiflexion (L4): 4+/5 L Ankle Plantar Flexion: 4+/5 L Ankle Inversion: 4/5 (minimal pain) L Ankle Eversion: 4/5 (pain) TREATMENT: Therapeutic Exercise: 1: Toe curls left x 1 minutes. 2: TOGA exercises for foot: toe abduction, toe adduction, great toe extension with 2-4 toes pressing into the floor and 2nd-4th toe extension with 1st and 5 th toe on floor 1x10 each 3: Standing BAPS PWB ball 3, pegs on A/P, lateral and cw and ccw x 10 each. 4: foam square forward step-ups leading with right and left leg 1 x 10 reps each leg with UE assist. 5: foam square lateral step-ups stepping up and over each direction 1x10 reps with B UE assist. Skilled Intervention: Patient was educated in proper exercise technique and purpose for exercises. Reviewed and educated patient on additions/changes for home exercise program Skilled judgment was provided in selection of appropriate interventions. Correct performance of therapeutic exercises was facilitated with verbal and visual cuing. Patient education as noted. Objective measurements and reassessment. Billing: [facility]: Therapeutic Exercise ([id number]): 1:1 time: 40 minutes (3 units: 38-52 mins) Total time: 40 minutes Kat iMlton PT PROGRESS Observed: 02/03/2018 Status: COMPLETED Source: [place] 10:58 AM [facility] [place] REPOSITORY HNO ID: [id number] Author: Agnes NolascoPt) Oni Service: (none) Author Type: Physical Therapist Type: Progress Notes Filed: 02/03/2018 12:19 PM Note Text: Episode Visit Count: 40 Therapist That Will Oversee The Plan Of Care: Kat Milton Start of Care Date: 07/14/17 Onset Date: 02/17/17 Patient Identified by Name and Date of : Yes REHABILITATION AND SPORTS THERAPY PHYSICAL THERAPY TREATMENT NOTE ASSESSMENT: Renae Elizondo demonstrated difficulty with pain in toes from TOGA exercises. Noted improvement in gait with quad cane with B shoes on as she was able to increase her speed of walking with verbal cues to do this. Patient with good follow through with [facility]. The patient will continue to benefit from continued skilled physical therapy for plan of care update. PLAN FOR NEXT VISIT: POC update. SUBJECTIVE: Patient reports the toes are aching and sharp at times from toe exercises. Pain Score: 7/10 Pain Location: Foot - Left (Great toe) Description: Aching;Sharp Frequency: Continuous Post Treatment Pain Score: No Change OBJECTIVE MEASURES WITH LEVEL OF FUNCTION: Patient able to increase speed of walking with shoes on and use of quad cane with verbal cues. TREATMENT: Therapeutic Exercise: 1: Ambulation on level with st cane and shoew with emphasis on increase luis miguel of walk and patient was able to do this today. 2: Standing BAPS PWB ball 3, pegs on A/P, lateral and cw and ccw x 10 each. 3: Foam square weight shifting back and forth x 10 with // bar assist. 4: foam square forward step-ups leading with right and left leg 1 x 7 reps each leg with UE assist. 5: foam square lateral step-ups stepping up and over each direction 1x7 with B UE assist. 7: Ambulation on level with shoes on stepping over 3, 6 hurdles with // bar assist x 1 each direction. 8: Toe curls left x 1 minutes. 9: Weight shifting on balance board lateral x 10 and A/P x 10 with // bar assist and CGA. 10: Wide JUAN CARLOS with small blue ball toss againnst Rebounder x 10 with CGA. Skilled Intervention: Patient was educated in proper exercise technique and purpose for exercises. Skilled judgment was provided in selection of appropriate interventions. Correct performance of therapeutic exercises was facilitated with verbal and visual cuing. Billing: [facility]: Therapeutic Exercise ([id number]): 1:1 time: 42 minutes (3 units: 38-52 mins) Total time: 42 minutes HEATHER Jean/Agnes Bunn PT CNTHERAPY Observed: 02/03/2018 Status: COMPLETED Source: [place] 9:15 AM [facility] [place] REPOSITORY OT/PT/Speech Visit (PTWS) RENAE ELIZONDO ([id number]) 1955 F Date Time Provider Department 02/03/18 9:15 AM RITA SUN ([facility]) PTWS Date Time Provider Department Center 02/03/2018 9:15 AM [id number], NANCY ([employer]PER[employer]) PTWS [facility] Reason for Visit: Physical Therapy [503] Primary Visit Diagnosis:Arthritis, midfoot [M19.079] Allergies As of Date: 02/03/2018 Noted Allergy Reaction ADHESIVE TAPE (ROSINS) 02/13/2006 2 - Rash Comments: tore skin/blisters MORPHINE 02/05/2006 5 - Intolerance Comments: vomiting, shaking. NSAIDS (NON-STEROIDAL ANTI-INFLAM*10/05/2014 11 - Vomiting VASOTEC (ENALAPRIL MALEATE) 09/08/2008 Comments: nausea/doesn't work Date Reviewed: 11/10/2017 Reviewed by: Milana Humphrey Ma - Fully Assessed Prescriptions as of 02/03/2018 Sig: HYDROXYCHLOROQUINE 200 MG TAB* Take 1 tablet by mouth twice * DICLOFENAC 1 % TOPICAL GEL apply topically 4 grams to fo* LEFLUNOMIDE 20 MG TABLET Take 1 tablet by mouth once d* CHOLECALCIFEROL (VITAMIN D3) * Take 2,000 Units by mouth onc* PROLIA SUBCUTANEOUS Inject subcutaneously once e* CELECOXIB 200 MG CAPSULE Take 200 mg by mouth as neede* MAGNESIUM OXIDE 500 MG TABLET Taking 250mg. Take two tablet* ACETAMINOPHEN 500 MG TABLET Take 500 mg by mouth every 8 * CPAP CHIN STRAP, USED WITH CPAP DE* FLUTICASONE 50 MCG/ACTUATION * Use 1 [place] in each nostril d* FERROUS SULFATE 325 MG (65 MG* Take 325 mg by mouth daily wi* ASCORBIC ACID (VITAMIN C) 500* Take 500 mg by mouth three ti* CPAP AutoPAP 10-20 cmH2O, suitable* CYCLOBENZAPRINE 10 MG TABLET LEVOTHYROXINE 50 MCG TABLET Take 50 mcg by mouth daily be* CLOBETASOL 0.05 % TOPICAL CRE* as directed * GABAPENTIN 300 MG CAPSULE Take 300 mg by mouth three ti* * PROMETHAZINE 25 MG TABLET Take one(1) tablet every four* * ATIVAN 1 MG TABLET takes 1/2 tab as needed * FENTANYL 50 MCG/HR TRANSDERMA* Apply as directed. Change pat* * B COMPLEX 1 TABLET Take one(1) tablet daily. * MULTIVITAMIN,TX-MINERALS TABL* 1 tab daily Progress Notes: Agnes Bunn PT 02/03/2018 12:19 PM Signed Episode Visit Count: 40 Therapist That Will Oversee The Plan Of Care: Kat Milton Start of Care Date: 07/14/17 Onset Date: 02/17/17 Patient Identified by Name and Date of : Yes REHABILITATION AND SPORTS THERAPY PHYSICAL THERAPY TREATMENT NOTE ASSESSMENT: Renae Elizondo demonstrated difficulty with pain in toes from TOGA exercises. Noted improvement in gait with quad cane with B shoes on as she was able to increase her speed of walking with verbal cues to do this. Patient with good follow through with HEP. The patient will continue to benefit from continued skilled physical therapy for plan of care update. PLAN FOR NEXT VISIT: POC update. SUBJECTIVE: Patient reports the toes are aching and sharp at times from toe exercises. Pain Score: 7/10 Pain Location: Foot - Left (Great toe) Description: Aching;Sharp Frequency: Continuous Post Treatment Pain Score: No Change OBJECTIVE MEASURES WITH LEVEL OF FUNCTION: Patient able to increase speed of walking with shoes on and use of quad cane with verbal cues. TREATMENT: Therapeutic Exercise: 1: Ambulation on level with st cane and shoew with emphasis on increase luis miguel of walk and patient was able to do this today. 2: Standing BAPS PWB ball 3, pegs on A/P, lateral and cw and ccw x 10 each. 3: Foam square weight shifting back and forth x 10 with // bar assist. 4: foam square forward step-ups leading with right and left leg 1 x 7 reps each leg with UE assist. 5: foam square lateral step-ups stepping up and over each direction 1x7 with B UE assist. 7: Ambulation on level with shoes on stepping over 3, 6 hurdles with // bar assist x 1 each direction. 8: Toe curls left x 1 minutes. 9: Weight shifting on balance board lateral x 10 and A/P x 10 with // bar assist and CGA. 10: Wide JUAN CARLOS with small blue ball toss againnst Rebounder x 10 with CGA. Skilled Intervention: Patient was educated in proper exercise technique and purpose for exercises. Skilled judgment was provided in selection of appropriate interventions. Correct performance of therapeutic exercises was facilitated with verbal and visual cuing. Billing: [facility]: Therapeutic Exercise ([id number]): 1:1 time: 42 minutes (3 units: 38-52 mins) Total time: 42 minutes Rita Sun PT-A/Agnes Bunn PT Previous Version Follow-up and Disposition History Recorded CBC Collected: 01/29/2018 Status: F Source: [place] 9:28 AM [facility] [place] REPOSITORY TYPE CODE TESTS RESULT OUT OF REFERENCE UNITS RANGE LAB WBC 3.70-11.00 k/uL WBC 5.08 LAB RBC 3.90-5.20 m/uL Low RBC 3.62 LAB HGB 11.5-15.5 g/dL Low Hemoglobin 11.4 LAB HCT 36.0-46.0 % Hematocrit 36.9 LAB MCV 80.0-100.0 fL MCV High 101.9 LAB MCH 26.0-34.0 pG MCH 31.5 LAB MCHC 30.5-36.0 g/dL MCHC 30.9 LAB RDWCV 11.5-15.0 % RDW-CV 13.6 LAB PLTCT 150-400 k/uL Platelet Count 238 LAB MPV 9.0-12.7 fL MPV 10.2 LAB ABSNUC <0.01 k/uL Absolute nRBC <0.01 Performed By: #### CBC #### [facility] [address], [place] [address] PROGRESS Observed: 01/29/2018 Status: COMPLETED Source: [place] 9:17 AM [facility] [place] REPOSITORY HNO ID: [id number] Author: Agnes (Pt) Oni Service: (none) Author Type: Physical Therapist Type: Progress Notes Filed: 01/29/2018 9:32 AM Note Text: Episode Visit Count: 39 Therapist That Will Oversee The Plan Of Care: Kat Milton Start of Care Date: 07/14/17 Onset Date: 02/17/17 Patient Identified by Name and Date of : Yes REHABILITATION AND SPORTS THERAPY PHYSICAL THERAPY TREATMENT NOTE ASSESSMENT: Renae Elizondo demonstrated improvements in walking with shoes on compared to last therapy when she forgot her shoes. Added weight shifting on balance board lateral and A/P and ball toss against Rebounder with wide JUAN CARLOS and this was scary to patient even with gait belt on and contact guard assist from therapist. She did surprisingly well with the new activity! The patient will continue to benefit from continued skilled physical therapy for progression of exercises and gait. PLAN FOR NEXT VISIT: Monitor response to newly added exercises. SUBJECTIVE: Patient reports increase pain after last therapy. She reports soaking her foot in hot water which was helpful. Patient reports foot slightly better today than previous days. Pain Score: 6/10 Pain Location: Foot - Left Description: Numbness Frequency: Continuous Post Treatment Pain Score: 8/10 Pain Location: Foot - Left Post Treatment Pain Description: Aching;Sharp (sharp in achilles) OBJECTIVE MEASURES WITH LEVEL OF FUNCTION: Patient able to weight shift while standing on balance board lateral and A/P with // bar assist and contact guard assist from therapist today. TREATMENT: Therapeutic Exercise: 2: Standing BAPS PWB ball 3, pegs on A/P, lateral and cw and ccw x 10 each. 3: Foam square weight shifting back and forth x 10 with // bar assist. 4: foam square forward step-ups leading with right and left leg 1 x 5 reps each leg with UE assist. 5: foam square lateral step-ups stepping up and over each direction 1x5 with B UE assist. 6: TOGA exercises for foot: toe abduction, toe adduction, great toe extension with 2-4 toes pressing into the floor and 2nd-4th toe extension with 1st and 5 th toe on floor 1x10. 7: Ambulation on level with shoes on stepping over 3, 6 hurdles with // bar assist. 8: Toe curls left x 1 minutes. 9: Weight shifting on balance board lateral x 10 and A/P x 5 with // bar assist and CGA. 10: Wide JUAN CARLOS with small blue ball toss againnst Rebounder x 5 with CGA. Skilled Intervention: Patient was educated in proper exercise technique and purpose for exercises. Skilled judgment was provided in selection of appropriate interventions. Correct performance of therapeutic exercises was facilitated with verbal and visual cuing. Billing: [facility]: Therapeutic Exercise ([id number]): 1:1 time: 43 minutes (3 units: 38-52 mins) Total time: 43 minutes Rita Sun PTRanjit/Agnes Bunn PT CNTHERAPY Observed: 01/29/2018 Status: COMPLETED Source: [place] 8:30 AM [facility] [place] REPOSITORY OT/PT/Speech Visit (PTWS) RENAE ELIZONDO ([id number]) 1955 F Date Time Provider Department 01/29/18 8:30 AM RITA SUN (SAMPLE SUPERVISOR) PTWS Date Time Provider Department Center 01/29/2018 8:30 AM [id number], NANCY (SAMPLE SUPERVISOR) PTWS [facility] Reason for Visit: Physical Therapy [503] Primary Visit Diagnosis:Arthritis, midfoot [M19.079] Allergies As of Date: 01/29/2018 Noted Allergy Reaction ADHESIVE TAPE (ROSINS) 02/13/2006 2 - Rash Comments: tore skin/blisters MORPHINE 02/05/2006 5 - Intolerance Comments: vomiting, shaking. NSAIDS (NON-STEROIDAL ANTI-INFLAM*10/05/2014 11 - Vomiting VASOTEC (ENALAPRIL MALEATE) 09/08/2008 Comments: nausea/doesn't work Date Reviewed: 11/10/2017 Reviewed by: Milana Humphrey Ma - Fully Assessed Prescriptions as of 01/29/2018 Sig: HYDROXYCHLOROQUINE 200 MG TAB* Take 1 tablet by mouth twice * DICLOFENAC 1 % TOPICAL GEL apply topically 4 grams to fo* LEFLUNOMIDE 20 MG TABLET Take 1 tablet by mouth once d* CHOLECALCIFEROL (VITAMIN D3) * Take 2,000 Units by mouth onc* PROLIA SUBCUTANEOUS Inject subcutaneously once e* CELECOXIB 200 MG CAPSULE Take 200 mg by mouth as neede* MAGNESIUM OXIDE 500 MG TABLET Taking 250mg. Take two tablet* ACETAMINOPHEN 500 MG TABLET Take 500 mg by mouth every 8 * CPAP CHIN STRAP, USED WITH CPAP DE* FLUTICASONE 50 MCG/ACTUATION * Use 1 [place] in each nostril d* FERROUS SULFATE 325 MG (65 MG* Take 325 mg by mouth daily wi* ASCORBIC ACID (VITAMIN C) 500* Take 500 mg by mouth three ti* CPAP AutoPAP 10-20 cmH2O, suitable* CYCLOBENZAPRINE 10 MG TABLET LEVOTHYROXINE 50 MCG TABLET Take 50 mcg by mouth daily be* CLOBETASOL 0.05 % TOPICAL CRE* as directed * GABAPENTIN 300 MG CAPSULE Take 300 mg by mouth three ti* * PROMETHAZINE 25 MG TABLET Take one(1) tablet every four* * ATIVAN 1 MG TABLET takes 1/2 tab as needed * FENTANYL 50 MCG/HR TRANSDERMA* Apply as directed. Change pat* * B COMPLEX 1 TABLET Take one(1) tablet daily. * MULTIVITAMIN,TX-MINERALS TABL* 1 tab daily Progress Notes: Agnes Bunn, PT 01/29/2018 9:32 AM Signed Episode Visit Count: 39 Therapist That Will Oversee The Plan Of Care: Kat Milton Start of Care Date: 07/14/17 Onset Date: 02/17/17 Patient Identified by Name and Date of : Yes REHABILITATION AND SPORTS THERAPY PHYSICAL THERAPY TREATMENT NOTE ASSESSMENT: Renae Elizondo demonstrated improvements in walking with shoes on compared to last therapy when she forgot her shoes. Added weight shifting on balance board lateral and A/P and ball toss against Rebounder with wide JUAN CARLOS and this was scary to patient even with gait belt on and contact guard assist from therapist. She did surprisingly well with the new activity! The patient will continue to benefit from continued skilled physical therapy for progression of exercises and gait. PLAN FOR NEXT VISIT: Monitor response to newly added exercises. SUBJECTIVE: Patient reports increase pain after last therapy. She reports soaking her foot in hot water which was helpful. Patient reports foot slightly better today than previous days. Pain Score: 6/10 Pain Location: Foot - Left Description: Numbness Frequency: Continuous Post Treatment Pain Score: 8/10 Pain Location: Foot - Left Post Treatment Pain Description: Aching;Sharp (sharp in achilles) OBJECTIVE MEASURES WITH LEVEL OF FUNCTION: Patient able to weight shift while standing on balance board lateral and A/P with // bar assist and contact guard assist from therapist today. TREATMENT: Therapeutic Exercise: 2: Standing BAPS PWB ball 3, pegs on A/P, lateral and cw and ccw x 10 each. 3: Foam square weight shifting back and forth x 10 with // bar assist. 4: foam square forward step-ups leading with right and left leg 1 x 5 reps each leg with UE assist. 5: foam square lateral step-ups stepping up and over each direction 1x5 with B UE assist. 6: TOGA exercises for foot: toe abduction, toe adduction, great toe extension with 2-4 toes pressing into the floor and 2nd-4th toe extension with 1st and 5 th toe on floor 1x10. 7: Ambulation on level with shoes on stepping over 3, 6 hurdles with // bar assist. 8: Toe curls left x 1 minutes. 9: Weight shifting on balance board lateral x 10 and A/P x 5 with // bar assist and CGA. 10: Wide JUAN CARLOS with small blue ball toss againnst Rebounder x 5 with CGA. Skilled Intervention: Patient was educated in proper exercise technique and purpose for exercises. Skilled judgment was provided in selection of appropriate interventions. Correct performance of therapeutic exercises was facilitated with verbal and visual cuing. Billing: [facility]: Therapeutic Exercise ([id number]): 1:1 time: 43 minutes (3 units: 38-52 mins) Total time: 43 minutes Rita Sun PT-A/Agnes Bunn PT Previous Version Follow-up and Disposition History Recorded PROGRESS Observed: 01/27/2018 Status: COMPLETED Source: [place] 10:16 AM [facility] [place] REPOSITORY HNO ID: [id number] Author: Eleanor (PtSuzanne Bowie Service: (none) Author Type: Physical Therapist Type: Progress Notes Filed: 01/27/2018 1:10 PM Note Text: Episode Visit Count: 38 Therapist That Will Oversee The Plan Of Care: Kat Milton Start of Care Date: 07/14/17 Onset Date: 02/17/17 Patient Identified by Name and Date of : Yes REHABILITATION AND SPORTS THERAPY PHYSICAL THERAPY TREATMENT NOTE ASSESSMENT: Renae Elizondo demonstrated difficulty with pain today , increase swelling posterior ankle and difficulty with gait with no boot as she forgot her tennis shoe and walked in stocking feet with st cane while in therapy.Patient voiced increase discomfort in weight bearing positions today. Improved ability to perform foot intrinsic strengthening. The patient will continue to benefit from continued skilled physical therapy for progression of strength and gait. PLAN FOR NEXT VISIT: POC update rescheduled for 02/06/2018. SUBJECTIVE: Patient reports ouchy this morning with colder weather. She reports pain is more in the morning until she moves around more. Patient reports she forgot to bring her tennis shoe today. Pain Score: 6/10 Pain Location: Foot - Left Description: Aching Frequency: Continuous Post Treatment Pain Score: 8/10 Pain Location: Foot - Left Post Treatment Pain Description: Aching OBJECTIVE MEASURES WITH LEVEL OF FUNCTION: Increase pain and increase gait deviation with gait in therapy today with socks and st cane. TREATMENT: Therapeutic Exercise: 2: Standing BAPS PWB ball 3, pegs on A/P, lateral and cw and ccw x 10 each. 3: stationary balancing on foam square in parallel bars working on symmetrical weight bearing and L ankle balance reactions and purposeful weight shiting 7 each direstion. 4: foam square forward step-ups leading with right and left leg 1 x 5 reps each leg with UE assist. 5: foam square lateral step-ups stepping up and over each direction 1x3 with B UE assist. 6: TOGA exercises for foot: toe abduction, toe adduction, great toe extension with 2-4 toes pressing into the floor and 2nd-4th toe extension with 1st and 5 th toe on floor 1x10. 7: Ambulation on level with socks and st cane with slow gait and pain with no shoes. 8: Toe curls left x 1 minutes. Skilled Intervention: Patient was educated in proper exercise technique and purpose for exercises. Skilled judgment was provided in selection of appropriate interventions. Correct performance of therapeutic exercises was facilitated with verbal and tactile cuing. Billing: [facility]: Therapeutic Exercise ([id number]): 1:1 time: 45 minutes (3 units: 38-52 mins) Total time: 45 minutes Rita uSn PTRanjit Bowie PT CNTHERAPY Observed: 01/27/2018 Status: COMPLETED Source: [place] 8:30 AM [facility] REPOSITORY OT/PT/Speech Visit (PTWS) CARORENAE ([id number]) 1955 F Date Time Provider Department 01/27/18 8:30 AM RITA SUN (SAMPLE SUPERVISOR) PTWS Date Time Provider Department Center 01/27/2018 8:30 AM [id number], NANCY (SAMPLE SUPERVISOR) PTWS [facility] Reason for Visit: Physical Therapy [503] Primary Visit Diagnosis:Arthritis, midfoot [M19.079] Allergies As of Date: 01/27/2018 Noted Allergy Reaction ADHESIVE TAPE (ROSINS) 02/13/2006 2 - Rash Comments: tore skin/blisters MORPHINE 02/05/2006 5 - Intolerance Comments: vomiting, shaking. NSAIDS (NON-STEROIDAL ANTI-INFLAM*10/05/2014 11 - Vomiting VASOTEC (ENALAPRIL MALEATE) 09/08/2008 Comments: nausea/doesn't work Date Reviewed: 11/10/2017 Reviewed by: Milana Humphrey Ma - Fully Assessed Prescriptions as of 01/27/2018 Sig: HYDROXYCHLOROQUINE 200 MG TAB* Take 1 tablet by mouth twice * DICLOFENAC 1 % TOPICAL GEL apply topically 4 grams to fo* LEFLUNOMIDE 20 MG TABLET Take 1 tablet by mouth once d* CHOLECALCIFEROL (VITAMIN D3) * Take 2,000 Units by mouth onc* PROLIA SUBCUTANEOUS Inject subcutaneously once e* CELECOXIB 200 MG CAPSULE Take 200 mg by mouth as neede* MAGNESIUM OXIDE 500 MG TABLET Taking 250mg. Take two tablet* ACETAMINOPHEN 500 MG TABLET Take 500 mg by mouth every 8 * CPAP CHIN STRAP, USED WITH CPAP DE* FLUTICASONE 50 MCG/ACTUATION * Use 1 [place] in each nostril d* FERROUS SULFATE 325 MG (65 MG* Take 325 mg by mouth daily wi* ASCORBIC ACID (VITAMIN C) 500* Take 500 mg by mouth three ti* CPAP AutoPAP 10-20 cmH2O, suitable* CYCLOBENZAPRINE 10 MG TABLET LEVOTHYROXINE 50 MCG TABLET Take 50 mcg by mouth daily be* CLOBETASOL 0.05 % TOPICAL CRE* as directed * GABAPENTIN 300 MG CAPSULE Take 300 mg by mouth three ti* * PROMETHAZINE 25 MG TABLET Take one(1) tablet every four* * ATIVAN 1 MG TABLET takes 1/2 tab as needed * FENTANYL 50 MCG/HR TRANSDERMA* Apply as directed. Change pat* * B COMPLEX 1 TABLET Take one(1) tablet daily. * MULTIVITAMIN,TX-MINERALS TABL* 1 tab daily Progress Notes: Eleanor Bowie, PT 01/27/2018 1:10 PM Signed Episode Visit Count: 38 Therapist That Will Oversee The Plan Of Care: Kat Milton Start of Care Date: 07/14/17 Onset Date: 02/17/17 Patient Identified by Name and Date of : Yes REHABILITATION AND SPORTS THERAPY PHYSICAL THERAPY TREATMENT NOTE ASSESSMENT: Renae Elizondo demonstrated difficulty with pain today , increase swelling posterior ankle and difficulty with gait with no boot as she forgot her tennis shoe and walked in stocking feet with st cane while in therapy.Patient voiced increase discomfort in weight bearing positions today. Improved ability to perform foot intrinsic strengthening. The patient will continue to benefit from continued skilled physical therapy for progression of strength and gait. PLAN FOR NEXT VISIT: POC update rescheduled for 02/06/2018. SUBJECTIVE: Patient reports ouchy this morning with colder weather. She reports pain is more in the morning until she moves around more. Patient reports she forgot to bring her tennis shoe today. Pain Score: 6/10 Pain Location: Foot - Left Description: Aching Frequency: Continuous Post Treatment Pain Score: 8/10 Pain Location: Foot - Left Post Treatment Pain Description: Aching OBJECTIVE MEASURES WITH LEVEL OF FUNCTION: Increase pain and increase gait deviation with gait in therapy today with socks and st cane. TREATMENT: Therapeutic Exercise: 2: Standing BAPS PWB ball 3, pegs on A/P, lateral and cw and ccw x 10 each. 3: stationary balancing on foam square in parallel bars working on symmetrical weight bearing and L ankle balance reactions and purposeful weight shiting 7 each direstion. 4: foam square forward step-ups leading with right and left leg 1 x 5 reps each leg with UE assist. 5: foam square lateral step-ups stepping up and over each direction 1x3 with B UE assist. 6: TOGA exercises for foot: toe abduction, toe adduction, great toe extension with 2-4 toes pressing into the floor and 2nd-4th toe extension with 1st and 5 th toe on floor 1x10. 7: Ambulation on level with socks and st cane with slow gait and pain with no shoes. 8: Toe curls left x 1 minutes. Skilled Intervention: Patient was educated in proper exercise technique and purpose for exercises. Skilled judgment was provided in selection of appropriate interventions. Correct performance of therapeutic exercises was facilitated with verbal and tactile cuing. Billing: [facility]: Therapeutic Exercise ([id number]): 1:1 time: 45 minutes (3 units: 38-52 mins) Total time: 45 minutes Rita Sun PTRanjit Bowie PT Previous Version Follow-up and Disposition History Recorded PROGRESS Observed: 01/20/2018 Status: COMPLETED Source: [place] 8:59 AM [facility] [place] REPOSITORY HNO ID: [id number] Author: Agnes Bunn Service: (none) Author Type: Physical Therapist Type: Progress Notes Filed: 01/20/2018 9:47 AM Note Text: Episode Visit Count: 37 Therapist That Will Oversee The Plan Of Care: Kat Milton Start of Care Date: 07/14/17 Onset Date: 02/17/17 Patient Identified by Name and Date of : Yes REHABILITATION AND SPORTS THERAPY PHYSICAL THERAPY TREATMENT NOTE ASSESSMENT: Renae Elizondo demonstrated increase swelling top of left foot and posterior ankle today. She performed all exercises very slowly today. Patient able to ambulate in department with st cane today with shoes on with slow gait and good form. The patient will continue to benefit from continued skilled physical therapy for progression of ankle and foot strengthening and gait. PLAN FOR NEXT VISIT: POC update next visit. SUBJECTIVE: Patient reports 3 times in the past week doing stairs the left foot has given out on her. Patient reports some cramping in toes with new TOGO exercises. Patient reports today not feeling to bad but has slight swelling top of foot and achilles. Pain Score: 5/10 Pain Location: Foot - Left Description: Aching Frequency: Continuous Post Treatment Pain Score: 7/10 Pain Location: Foot - Left Post Treatment Pain Description: Aching OBJECTIVE MEASURES WITH LEVEL OF FUNCTION: Patient able to ambulate in department with st cane today with shoes on with slow gait and good form. TREATMENT: Therapeutic Exercise: 2: Standing BAPS PWB ball 3, with 1wt plate, CW and CCW with weight at each peg x 12 3 pegs and x 10 2 pegs with increase difficulty today. 3: stationary balancing on foam square in parallel bars working on symmetrical weight bearing and L ankle balance reactions 4: foam square forward step-ups leading with right and left leg 1 x 10 reps each leg 5: foam square lateral step-ups stepping up and over each direction 1x5. 6: TOGA exercises for foot: toe abduction, toe adduction, great toe extension with 2-4 toes pressing into the floor and 2nd-4th toe extension with 1st and 5 th toe on floor 1x10. 7: Ambulation on level at end of treatment with B shoes and straight cane with slow gait but normal gait sequence. 8: Toe curls left x 1 minutes. Skilled Intervention: Patient was educated in proper exercise technique and purpose for exercises. Skilled judgment was provided in selection of appropriate interventions. Correct performance of therapeutic exercises was facilitated with verbal cuing. Billing: [facility]: Therapeutic Exercise ([id number]): 1:1 time: 45 minutes (3 units: 38-52 mins) Total time: 45 minutes HEATHER Jean/Agnes Bunn PT CNTHERAPY Observed: 01/20/2018 Status: COMPLETED Source: [place] 7:00 AM [facility] [place] REPOSITORY OT/PT/Speech Visit (PTWS) RENAE ELIZONDO ([id number]) 1955 F Date Time Provider Department 01/20/18 7:00 AM RITA SUN (SAMPLE SUPERVISOR) PTWS Date Time Provider Department Center 01/20/2018 7:00 AM [id number], NANCY (SAMPLE SUPERVISOR) PTWS [facility] Reason for Visit: Physical Therapy [503] Primary Visit Diagnosis:Arthritis, midfoot [M19.079] Allergies As of Date: 01/20/2018 Noted Allergy Reaction ADHESIVE TAPE (ROSINS) 02/13/2006 2 - Rash Comments: tore skin/blisters MORPHINE 02/05/2006 5 - Intolerance Comments: vomiting, shaking. NSAIDS (NON-STEROIDAL ANTI-INFLAM*10/05/2014 11 - Vomiting VASOTEC (ENALAPRIL MALEATE) 09/08/2008 Comments: nausea/doesn't work Date Reviewed: 11/10/2017 Reviewed by: Milana Humphrey Ma - Fully Assessed Prescriptions as of 01/20/2018 Sig: HYDROXYCHLOROQUINE 200 MG TAB* Take 1 tablet by mouth twice * DICLOFENAC 1 % TOPICAL GEL apply topically 4 grams to fo* LEFLUNOMIDE 20 MG TABLET Take 1 tablet by mouth once d* CHOLECALCIFEROL (VITAMIN D3) * Take 2,000 Units by mouth onc* PROLIA SUBCUTANEOUS Inject subcutaneously once e* CELECOXIB 200 MG CAPSULE Take 200 mg by mouth as neede* MAGNESIUM OXIDE 500 MG TABLET Taking 250mg. Take two tablet* ACETAMINOPHEN 500 MG TABLET Take 500 mg by mouth every 8 * CPAP CHIN STRAP, USED WITH CPAP DE* FLUTICASONE 50 MCG/ACTUATION * Use 1 [place] in each nostril d* FERROUS SULFATE 325 MG (65 MG* Take 325 mg by mouth daily wi* ASCORBIC ACID (VITAMIN C) 500* Take 500 mg by mouth three ti* CPAP AutoPAP 10-20 cmH2O, suitable* CYCLOBENZAPRINE 10 MG TABLET LEVOTHYROXINE 50 MCG TABLET Take 50 mcg by mouth daily be* CLOBETASOL 0.05 % TOPICAL CRE* as directed * GABAPENTIN 300 MG CAPSULE Take 300 mg by mouth three ti* * PROMETHAZINE 25 MG TABLET Take one(1) tablet every four* * ATIVAN 1 MG TABLET takes 1/2 tab as needed * FENTANYL 50 MCG/HR TRANSDERMA* Apply as directed. Change pat* * B COMPLEX 1 TABLET Take one(1) tablet daily. * MULTIVITAMIN,TX-MINERALS TABL* 1 tab daily Progress Notes: Agnes Bunn, PT 01/20/2018 9:47 AM Signed Episode Visit Count: 37 Therapist That Will Oversee The Plan Of Care: Kat Milton Start of Care Date: 07/14/17 Onset Date: 02/17/17 Patient Identified by Name and Date of : Yes REHABILITATION AND SPORTS THERAPY PHYSICAL THERAPY TREATMENT NOTE ASSESSMENT: Renae Elizondo demonstrated increase swelling top of left foot and posterior ankle today. She performed all exercises very slowly today. Patient able to ambulate in department with st cane today with shoes on with slow gait and good form. The patient will continue to benefit from continued skilled physical therapy for progression of ankle and foot strengthening and gait. PLAN FOR NEXT VISIT: POC update next visit. SUBJECTIVE: Patient reports 3 times in the past week doing stairs the left foot has given out on her. Patient reports some cramping in toes with new TOGO exercises. Patient reports today not feeling to bad but has slight swelling top of foot and achilles. Pain Score: 5/10 Pain Location: Foot - Left Description: Aching Frequency: Continuous Post Treatment Pain Score: 7/10 Pain Location: Foot - Left Post Treatment Pain Description: Aching OBJECTIVE MEASURES WITH LEVEL OF FUNCTION: Patient able to ambulate in department with st cane today with shoes on with slow gait and good form. TREATMENT: Therapeutic Exercise: 2: Standing BAPS PWB ball 3, with 1wt plate, CW and CCW with weight at each peg x 12 3 pegs and x 10 2 pegs with increase difficulty today. 3: stationary balancing on foam square in parallel bars working on symmetrical weight bearing and L ankle balance reactions 4: foam square forward step-ups leading with right and left leg 1 x 10 reps each leg 5: foam square lateral step-ups stepping up and over each direction 1x5. 6: TOGA exercises for foot: toe abduction, toe adduction, great toe extension with 2-4 toes pressing into the floor and 2nd-4th toe extension with 1st and 5 th toe on floor 1x10. 7: Ambulation on level at end of treatment with B shoes and straight cane with slow gait but normal gait sequence. 8: Toe curls left x 1 minutes. Skilled Intervention: Patient was educated in proper exercise technique and purpose for exercises. Skilled judgment was provided in selection of appropriate interventions. Correct performance of therapeutic exercises was facilitated with verbal cuing. Billing: [facility]: Therapeutic Exercise ([id number]): 1:1 time: 45 minutes (3 units: 38-52 mins) Total time: 45 minutes Rita Sun PT-[place]/Agnes Bunn PT Previous Version Follow-up and Disposition History Recorded PROGRESS Observed: 01/16/2018 Status: COMPLETED Source: [place] 8:53 AM [facility] [place] REPOSITORY HNO ID: [id number] Author: Kat (Pt) Yoan Service: (none) Author Type: Physical Therapist Type: Progress Notes Filed: 01/16/2018 10:38 AM Note Text: Episode Visit Count: 36 Therapist That Will Oversee The Plan Of Care: Kat Milton Start of Care Date: 07/14/17 Onset Date: 02/17/17 Patient Identified by Name and Date of : Yes REHABILITATION AND SPORTS THERAPY PHYSICAL THERAPY TREATMENT NOTE ASSESSMENT: Renaediogo Millerr demonstrated improvements in gait and improved color of foot since last seen by this therapist. Advanced toe intrinsic strengthening today with addition of TOGA exercises. Patient with surprisingly good control with these newly added exercises. Patient noted increase foot pain at end of treatment and reports it usually settles back down within 4 hours. The patient will continue to benefit from continued skilled physical therapy for progression of foot intrinsic strengthening. PLAN FOR NEXT VISIT: POC update on 01/23/2018. Review TOGA exercises next visit. SUBJECTIVE: Patient reports having an ache left arch and medial and lateral ankle. Pain Score: 5/10 Pain Location: Foot - Left Description: Aching Frequency: Continuous Post Treatment Pain Score: 8/10 Pain Location: Foot - Left Post Treatment Pain Description: Aching OBJECTIVE MEASURES WITH LEVEL OF FUNCTION: Improved heel strike and push off over toes with use of quad cane with B tennis shoes on. TREATMENT: Therapeutic Exercise: 1: Standing BAPS PWB left ball 3 and pegs, A/P, lateral 1x20 each. 2: Standing BAPS PWB ball 3, with 1wt plate, 1 x 10 reps CW and CCW with weight at each peg 3: stationary balancing on foam square in parallel bars working on symmetrical weight bearing and L ankle balance reactions 4: foam square forward step-ups leading with right and left leg 1 x 10 reps each leg 5: foam square lateral step-ups stepping up and over each direction.1x10. 6: *TOGA exercises for foot: toe abduction, toe adduction, great toe extension with 2-4 toes pressing into the floor and 2nd-4th toe extension with 1st and 5 th toe on floor 1x10. 7: Ambulation on level at end of treatment with B tennis shoes and quad cane with slow gaoit but normal gait sequence. Skilled Intervention: Patient was educated in proper exercise technique and purpose for exercises. Reviewed and educated patient on additions/changes for home exercise program as above (*) Skilled judgment was provided in selection of appropriate interventions. Provided written instruction for home exercise program to facilitate proper performance and compliance. Correct performance of therapeutic exercises was facilitated with verbal, visual and tactile cuing. Billing: [facility]: Therapeutic Exercise ([id number]): 1:1 time: 56 minutes (4 units: 53-67 mins) Total time: 56 minutes HEATHER Jean PT CNTHERAPY Observed: 01/16/2018 Status: COMPLETED Source: [place] 7:45 AM [facility] [place] REPOSITORY OT/PT/Speech Visit (PTWS) RENAE ELIZONDO ([id number]) 1955 F Date Time Provider Department 01/16/18 7:45 AM RITA SUN) PTWS Date Time Provider Department Center 01/16/2018 7:45 AM [id number], NANCY (SAMPLE SUPERVISOR) PTALEXEY [facility] Reason for Visit: Physical Therapy [503] Primary Visit Diagnosis:Arthritis, midfoot [M19.079] Allergies As of Date: 01/16/2018 Noted Allergy Reaction ADHESIVE TAPE (ROSINS) 02/13/2006 2 - Rash Comments: tore skin/blisters MORPHINE 02/05/2006 5 - Intolerance Comments: vomiting, shaking. NSAIDS (NON-STEROIDAL ANTI-INFLAM*10/05/2014 11 - Vomiting VASOTEC (ENALAPRIL MALEATE) 09/08/2008 Comments: nausea/doesn't work Date Reviewed: 11/10/2017 Reviewed by: Milana Humphrey Ma - Fully Assessed Prescriptions as of 01/16/2018 Sig: HYDROXYCHLOROQUINE 200 MG TAB* Take 1 tablet by mouth twice * DICLOFENAC 1 % TOPICAL GEL apply topically 4 grams to fo* LEFLUNOMIDE 20 MG TABLET Take 1 tablet by mouth once d* CHOLECALCIFEROL (VITAMIN D3) * Take 2,000 Units by mouth onc* PROLIA SUBCUTANEOUS Inject subcutaneously once e* CELECOXIB 200 MG CAPSULE Take 200 mg by mouth as neede* MAGNESIUM OXIDE 500 MG TABLET Taking 250mg. Take two tablet* ACETAMINOPHEN 500 MG TABLET Take 500 mg by mouth every 8 * CPAP CHIN STRAP, USED WITH CPAP DE* FLUTICASONE 50 MCG/ACTUATION * Use 1 [place] in each nostril d* FERROUS SULFATE 325 MG (65 MG* Take 325 mg by mouth daily wi* ASCORBIC ACID (VITAMIN C) 500* Take 500 mg by mouth three ti* CPAP AutoPAP 10-20 cmH2O, suitable* CYCLOBENZAPRINE 10 MG TABLET LEVOTHYROXINE 50 MCG TABLET Take 50 mcg by mouth daily be* CLOBETASOL 0.05 % TOPICAL CRE* as directed * GABAPENTIN 300 MG CAPSULE Take 300 mg by mouth three ti* * PROMETHAZINE 25 MG TABLET Take one(1) tablet every four* * ATIVAN 1 MG TABLET takes 1/2 tab as needed * FENTANYL 50 MCG/HR TRANSDERMA* Apply as directed. Change pat* * B COMPLEX 1 TABLET Take one(1) tablet daily. * MULTIVITAMIN,TX-MINERALS TABL* 1 tab daily Progress Notes: Kat Milton PT 01/16/2018 10:38 AM Signed Episode Visit Count: 36 Therapist That Will Oversee The Plan Of Care: Kat Milton Start of Care Date: 07/14/17 Onset Date: 02/17/17 Patient Identified by Name and Date of : Yes REHABILITATION AND SPORTS THERAPY PHYSICAL THERAPY TREATMENT NOTE ASSESSMENT: Renae Elizondo demonstrated improvements in gait and improved color of foot since last seen by this therapist. Advanced toe intrinsic strengthening today with addition of TOGA exercises. Patient with surprisingly good control with these newly added exercises. Patient noted increase foot pain at end of treatment and reports it usually settles back down within 4 hours. The patient will continue to benefit from continued skilled physical therapy for progression of foot intrinsic strengthening. PLAN FOR NEXT VISIT: POC update on 01/23/2018. Review TOGA exercises next visit. SUBJECTIVE: Patient reports having an ache left arch and medial and lateral ankle. Pain Score: 5/10 Pain Location: Foot - Left Description: Aching Frequency: Continuous Post Treatment Pain Score: 8/10 Pain Location: Foot - Left Post Treatment Pain Description: Aching OBJECTIVE MEASURES WITH LEVEL OF FUNCTION: Improved heel strike and push off over toes with use of quad cane with B tennis shoes on. TREATMENT: Therapeutic Exercise: 1: Standing BAPS PWB left ball 3 and pegs, A/P, lateral 1x20 each. 2: Standing BAPS PWB ball 3, with 1wt plate, 1 x 10 reps CW and CCW with weight at each peg 3: stationary balancing on foam square in parallel bars working on symmetrical weight bearing and L ankle balance reactions 4: foam square forward step-ups leading with right and left leg 1 x 10 reps each leg 5: foam square lateral step-ups stepping up and over each direction.1x10. 6: *TOGA exercises for foot: toe abduction, toe adduction, great toe extension with 2-4 toes pressing into the floor and 2nd-4th toe extension with 1st and 5 th toe on floor 1x10. 7: Ambulation on level at end of treatment with B tennis shoes and quad cane with slow gaoit but normal gait sequence. Skilled Intervention: Patient was educated in proper exercise technique and purpose for exercises. Reviewed and educated patient on additions/changes for home exercise program as above (*) Skilled judgment was provided in selection of appropriate interventions. Provided written instruction for home exercise program to facilitate proper performance and compliance. Correct performance of therapeutic exercises was facilitated with verbal, visual and tactile cuing. Billing: [facility]: Therapeutic Exercise ([id number]): 1:1 time: 56 minutes (4 units: 53-67 mins) Total time: 56 minutes Rita Sun PT-[place] Milton, [place] Previous Version Follow-up and Disposition History Recorded PROGRESS Observed: 01/09/2018 Status: COMPLETED Source: [place] 3:09 PM [facility] [place] REPOSITORY O ID: [id number] Author: Kat (Pt) Yoan Service: (none) Author Type: Physical Therapist Type: Progress Notes Filed: 01/09/2018 3:18 PM Note Text: Episode Visit Count: 35 Therapist That Will Oversee The Plan Of Care: Kat Milton Start of Care Date: 07/14/17 Onset Date: 02/17/17 Patient Identified by Name and Date of : Yes REHABILITATION AND SPORTS THERAPY PHYSICAL THERAPY TREATMENT NOTE ASSESSMENT: Renae Elizondo demonstrated difficulty with increased pain and abnormal gait pattern that improved at the end of treatment. The patient will continue to benefit from continued skilled physical therapy for L ankle AROM, strengthening, soft tissue restrictions and gait instruction. PLAN FOR NEXT VISIT: Plan of care update next week. SUBJECTIVE: Pt reports increased pain in foot today and distal Achilles area which she feels is d/t the damp, cold weather. Pain Score: 7/10 Pain Location: Foot - Left (Achilles) Post Treatment Pain Score: 8/10 Pain Location: Foot - Left (Achilles 8/10, foot 6/10) OBJECTIVE MEASURES WITH LEVEL OF FUNCTION: Gait Gait Observation: Pt with improved gait pattern at end of session noting increased ankle dorsiflexion and push off compared to at start of visit. TREATMENT: Therapeutic Exercise: 1: Standing BAPS PWB left ball 3 and pegs, A/P, lateral 1x20 each. 2: Standing BAPS PWB ball 3, with 1wt plate, 1 x 10 reps CW and CCW with weight at each peg 3: stationary balancing on foam square in parallel bars working on symmetrical weight bearing and L ankle balance reactions 4: foam square step-ups 2 x 10 reps each leg 5: foam square lateral step-ups 2 x 10 rpes each leg Skilled Intervention: Patient was educated in proper exercise technique and purpose for exercises. Reviewed and educated patient on additions/changes for home exercise program Skilled judgment was provided in selection of appropriate interventions. Correct performance of therapeutic exercises was facilitated with verbal and visual cuing. Patient education as noted. Gait Trainin: Gait with shoes and straight cane 2x 60 ft Skilled Intervention: Facilitated proper gait cycle with the use of verbal and visual cues for correction of gait deviations identified in the objective section above. Education provided to patient regarding the proper sequence and performance of each phase of gait. Correct performance of home program was facilitated with verbal and visual cueing. Billing: [facility]: Therapeutic Exercise ([id number]): 1:1 time: 35 minutes (2 units: 23-37 mins) Gait Training ([id number]): 1:1 time: 10 minutes (1 unit: 8-22 mins) Total time: 45 minutes Kat Milton PT CNTHERAPY Observed: 01/09/2018 Status: COMPLETED Source: [place] 1:00 PM [facility] [place] REPOSITORY OT/PT/Speech Visit (PTWS) RENAE ELIZONDO ([id number]) 1955 F Date Time Provider Department 01/09/18 1:00 PM KAT MILTON (PT) PTWS Date Time Provider Department Center 01/09/2018 1:00 PM [id number] MILTON (PT) PTWS [facility] Reason for Visit: Physical Therapy [503] Primary Visit Diagnosis:Arthritis, midfoot [M19.079] Allergies As of Date: 01/09/2018 Noted Allergy Reaction ADHESIVE TAPE (ROSINS) 02/13/2006 2 - Rash Comments: tore skin/blisters MORPHINE 02/05/2006 5 - Intolerance Comments: vomiting, shaking. NSAIDS (NON-STEROIDAL ANTI-INFLAM*10/05/2014 11 - Vomiting VASOTEC (ENALAPRIL MALEATE) 09/08/2008 Comments: nausea/doesn't work Date Reviewed: 11/10/2017 Reviewed by: Milana Humphrey Ma - Fully Assessed Prescriptions as of 01/09/2018 Sig: HYDROXYCHLOROQUINE 200 MG TAB* Take 1 tablet by mouth twice * DICLOFENAC 1 % TOPICAL GEL apply topically 4 grams to fo* LEFLUNOMIDE 20 MG TABLET Take 1 tablet by mouth once d* CHOLECALCIFEROL (VITAMIN D3) * Take 2,000 Units by mouth onc* PROLIA SUBCUTANEOUS Inject subcutaneously once e* CELECOXIB 200 MG CAPSULE Take 200 mg by mouth as neede* MAGNESIUM OXIDE 500 MG TABLET Taking 250mg. Take two tablet* ACETAMINOPHEN 500 MG TABLET Take 500 mg by mouth every 8 * CPAP CHIN STRAP, USED WITH CPAP DE* FLUTICASONE 50 MCG/ACTUATION * Use 1 [place] in each nostril d* FERROUS SULFATE 325 MG (65 MG* Take 325 mg by mouth daily wi* ASCORBIC ACID (VITAMIN C) 500* Take 500 mg by mouth three ti* CPAP AutoPAP 10-20 cmH2O, suitable* CYCLOBENZAPRINE 10 MG TABLET LEVOTHYROXINE 50 MCG TABLET Take 50 mcg by mouth daily be* CLOBETASOL 0.05 % TOPICAL CRE* as directed * GABAPENTIN 300 MG CAPSULE Take 300 mg by mouth three ti* * PROMETHAZINE 25 MG TABLET Take one(1) tablet every four* * ATIVAN 1 MG TABLET takes 1/2 tab as needed * FENTANYL 50 MCG/HR TRANSDERMA* Apply as directed. Change pat* * B COMPLEX 1 TABLET Take one(1) tablet daily. * MULTIVITAMIN,TX-MINERALS TABL* 1 tab daily Progress Notes: Kat Milton, PT 01/09/2018 3:18 PM Signed Episode Visit Count: 35 Therapist That Will Oversee The Plan Of Care: Kat Milton Start of Care Date: 07/14/17 Onset Date: 02/17/17 Patient Identified by Name and Date of : Yes REHABILITATION AND SPORTS THERAPY PHYSICAL THERAPY TREATMENT NOTE ASSESSMENT: Renae Elizondo demonstrated difficulty with increased pain and abnormal gait pattern that improved at the end of treatment. The patient will continue to benefit from continued skilled physical therapy for L ankle AROM, strengthening, soft tissue restrictions and gait instruction. PLAN FOR NEXT VISIT: Plan of care update next week. SUBJECTIVE: Pt reports increased pain in foot today and distal Achilles area which she feels is d/t the damp, cold weather. Pain Score: 7/10 Pain Location: Foot - Left (Achilles) Post Treatment Pain Score: 8/10 Pain Location: Foot - Left (Achilles 8/10, foot 6/10) OBJECTIVE MEASURES WITH LEVEL OF FUNCTION: Gait Gait Observation: Pt with improved gait pattern at end of session noting increased ankle dorsiflexion and push off compared to at start of visit. TREATMENT: Therapeutic Exercise: 1: Standing BAPS PWB left ball 3 and pegs, A/P, lateral 1x20 each. 2: Standing BAPS PWB ball 3, with 1wt plate, 1 x 10 reps CW and CCW with weight at each peg 3: stationary balancing on foam square in parallel bars working on symmetrical weight bearing and L ankle balance reactions 4: foam square step-ups 2 x 10 reps each leg 5: foam square lateral step-ups 2 x 10 rpes each leg Skilled Intervention: Patient was educated in proper exercise technique and purpose for exercises. Reviewed and educated patient on additions/changes for home exercise program Skilled judgment was provided in selection of appropriate interventions. Correct performance of therapeutic exercises was facilitated with verbal and visual cuing. Patient education as noted. Gait Trainin: Gait with shoes and straight cane 2x 60 ft Skilled Intervention: Facilitated proper gait cycle with the use of verbal and visual cues for correction of gait deviations identified in the objective section above. Education provided to patient regarding the proper sequence and performance of each phase of gait. Correct performance of home program was facilitated with verbal and visual cueing. Billing: [facility]: Therapeutic Exercise ([id number]): 1:1 time: 35 minutes (2 units: 23-37 mins) Gait Training ([id number]): 1:1 time: 10 minutes (1 unit: 8-22 mins) Total time: 45 minutes Kat Milton PT PULMONARY VISIT REPORT Observed: 01/07/2018 Status: F Source: [place] 10:48 AM [facility] [address] [place] [address] OFFICE VISIT Date of Service: 01/07/18 MR#: [id number] Acct: [id number] Name: RENAE ELIZONDO Rep #: [id number] : 1955 Provider: Donnell Valdivia MD Age/Sex: 62/F Location: [facility] Status: Signed Assessment AND Plan Problems 1. Sarcoidosis of lung D86.0 2. HARRISON on CPAP G47.33; Z99.89 3. History of breast cancer Z85.3 Plan Patient overall appears to be doing well from a pulmonary perspective. Patient will be given a prescription for supplies and was encouraged to reinitiate CPAP as soon as possible. Patient voiced understanding. Patient is currently on immunosuppressive therapy secondary to comorbidities. Patient is on Nasonex therapy and appears to be tolerating as well. PFT prior to next visit to ensure stability of sarcoidosis Continue current therapy. Will obtain a PFT prior to next visit Orders Orders: Medications Discontinued: Flucelvax Quad 1899-0002 (PF) (flu vac qs 2018(4 yr60 mcg (0.5 mL) IM ONCE 1 mL 0RF NS Z23 up)CD(PF)) Discontinued Reason: Office Medicat ion has been Documented as given Plan Detail Follow Up 6 Months (CSM) HPI 6 M FU: Chief Complaint: Follow-up test results Details: Patient is a 62-year-old female, currently in the care of Dr. Baxter, who presents for evaluation secondary to routine follow-up for sarcoidosis. Since last visit, patient denies any ER visits, hospitalizations or prednisone burst. Patient feels she is subjectively worse compared to previous visit. Patient reports that since the weather has become cold she is developed some nasal congestion. Patient states she does use propane heat in her home and does not know if this is causing it. Patient does see Dr. Montelongo routinely. Patient reports that her exercise tolerance is somewhat limited secondary to recent fall. Patient is currently in a bauer boot. Patient denies any hypoxemia. Patient does report that she woke up with night sweats and was eventually found to be hypothyroid. Patient has had an increase in her Synthroid with resolution of symptoms. Patient reports she has not been compliant with her AutoSet. Patient states that she ran out of supplies and has not had these refilled. Patient states that it was helpful when it was working. Patient states that when she had her diaphoresis she was compliant with HARRISON therapy. Patient denies taking naps during the day when she was using therapy. Testing personally reviewed with the patient Chest x-ray (12/08/2017): No acute cardiopulmonary abnormalities. Low volume inspiration noted Complete PFT (07/04/2017): Grossly normal pulmonary function test with lung volumes and diffusing capacity at the lower limit of normal (FVC 74%, FEV1 80%, TLC 82%, DLCO 66%) HPI Comments Details: Intake Vital Signs01/07/18 Height 5 ft 5 in 01/07/18 Weight: 93.894 kg Intake Visit Reasons: 6 M FU [facility] Vendor: Jamie Accompanied by: Self Allergies doxycycline Allergy (Mild, Verified 01/07/18 07:51) Nausea enalaprilat [From Vasotec] Allergy (Mild, Verified 01/07/18 07:51) Other - lightheadedness codeine Allergy (Verified 01/07/18 07:51) Unknown midazolam HCl [From Versed] Allergy (Verified 01/07/18 07:51) Anaphylaxis morphine Adverse Reaction (Verified 01/07/18 07:51) Nausea/Vom/Diarrhea NSAIDS (Non-Steroidal Anti-Inflamma Adverse Reaction (Verified 01/07/18 07:51) Other Medications Levothyroxine [Synthroid] 50 mcg PO DAILY 03/09/13 [History Confirmed 01/07/18] Gabapentin [Neurontin] 300 mg PO TIDCM 06/03/13 [History Confirmed 01/07/18] Hydroxychloroquine [Plaquenil] 200 mg PO DAILYCM 07/05/15 [History Confirmed 01/07/18] Doxycycline [Vibramycin] 100 mg PO BID #20 cap 05/23/16 [Rx Confirmed 01/07/18] Leflunomide [Arava] 20 mg PO DAILY 05/23/16 [History Confirmed 01/07/18] traMADol [Ultram] 50 mg PO Q6H PRN PRN #20 tab 05/23/16 [Rx Confirmed 01/07/18] celecoxib 200 mg capsule 200 mg PO QDAY 05/28/17 [History Confirmed 01/07/18] cyclobenzaprine 10 mg tablet 10 mg PO TID PRN 05/28/17 [History Confirmed 01/07/18] denosumab 60 mg/mL subcutaneous syringe 60 mg SC [id number] 05/28/17 [History Confirmed 01/07/18] fentanyl 50 mcg/hr transdermal patch 1 patch TRANSDERMAL Q72H PRN 05/28/17 [History Confirmed 01/07/18] ferrous sulfate 325 mg (65 mg iron) tablet 325 mg PO QDAY tab 05/28/17 [History Confirmed 01/07/18] lorazepam 1 mg tablet 0.5 mg PO Q4H PRN tab 05/28/17 [History Confirmed 01/07/18] mometasone 50 mcg/actuation nasal spray 2 spray INTRANASAL QDAY g 05/28/17 [History Confirmed 01/07/18] multivitamin tablet 1 tab PO QDAY 05/28/17 [History Confirmed 01/07/18] ondansetron HCl 8 mg tablet 8 mg PO Q12H PRN 05/28/17 [History Confirmed 01/07/18] promethazine 25 mg tablet 25 mg PO Q6H PRN 05/28/17 [History Confirmed 01/07/18] vitamin B complex tablet 1 tab PO QDAY 05/28/17 [History Confirmed 01/07/18] PFSH Medical History Other and unspecified diseases of upper respiratory tract (Acute) Anemia (Chronic) Hypothyroid (Chronic) Malignant neoplasm of breast (Chronic) HARRISON (obstructive sleep apnea) (Chronic) Rheumatoid arthritis (Chronic) Sarcoidosis (Chronic) Surgical History H/O hernia repair (Resolved) H/O ligation of vein (Resolved) H/O thumb surgery (Resolved) H/O vaginal hysterectomy (Resolved) History of appendectomy (Resolved) History of carpal tunnel surgery (Resolved) History of gastric bypass (Resolved) History of modified radical mastectomy (Resolved) Hx of cholecystectomy (Resolved) Port-a-cath in place (Resolved) Family History Mother Diabetes Pancreatic cancer Brother Diabetes Hypertension Seasonal allergies Melanoma Brain cancer Tongue cancer Father Colon cancer Parkinson disease Sister Hypertension Seasonal allergies Uterine cancer Lung cancer Liver cancer Social History Smoking Status: Never smoker Review of Systems Const CONSTITUTIONAL: Positive fatigue; negative anorexia, body ache, chills, daytime sleepiness, fever(s), night sweats, oral thrush, stops breathing during sleep, weight loss, sleeping in chair, weight loss, weight gain, frequent colds, seasonal allergies, other, headache(s) or orthopnea EETM Ear Nose Throat Mouth: Positive hoarseness, nasal discharge, hearing normal and post nasal drip; negative dry mouth in morning, change in vision, itchy eyes, eye pain, swallowing Difficulty, ear pain, headache(s), mouth pain, nasal congestion, sinus pain, sinus pressure, sore throat, other, hard of hearing or nose bleed Cardio Cardiovascular: Negative chest pain, chest pain at rest, chest pain with activity, irregular heart rhythm, edema, shortness of breath when lying down, palpitations, other or murmur Resp Respiratory: Positive as per HPI, shortness of breath shortness of breath: Positive with activity and cough cough: Positive non-productive; negative pain with cough, wheezing, chest congestion, chest tightness, pain on inspiration, inhalers, increase use of rescue inhalers, snoring, apnea or other Gastro Gastrointestional: Negative bloody stools, change in appetite, difficulty swallowing, reflux, hematemesis, melena stool, loose stool, constipation or other Genitourinary: Negative blood in urine, nocturia, pain with urination or other Musc Musculoskeletal: Negative body pain, back pain, neck pain or other Skin/Breast Skin/Breast: Negative dry skin, itching, unusual bruising, breast lump, other or rash Neuro Neurological: Negative restless legs, confusion, weakness or other Psych Psychocological: Negative abnormal sleep pattern, anxiety, thoughts of hurting self/others, hopelessness or other Lymph Lymphatic: Negative easy bleeding, easy bruising, other or swollen lymph nodes Exam Const Constitutional: Positive conversant, cooperative, in no acute respiratory distress, healthy appearing, well developed, well nourished, good hygiene, appears older than stated age and obese; negative smells of smoke, dyspenic, wearing supplemental oxygen or ill appearing Head Head: Positive normocephalic and atraumatic; negative cyanosis of lips/distal nose, frontal sinus tenderness or maxillary sinus tenderness Eyes Eye: Positive clear conjunctiva; negative nystagmus, scleral abnormality or cataract present Ears Ear: Positive hearing normal and external ears normal; negative hard of hearing Nose Nose: Positive external nose normal, septum normal and clear nasal discharge; negative epistaxis or nasal polyp Mouth Mouth: Positive post nasal drip, oral mucosae normal, no lesions and posterior oropharynx is adequate; negative malodorous breath or oral thrush present Mallampati Score: II: Mallampati Score Neck Neck: Positive normal visual inspection, full ROM, trachea midline and female neck greater than 37 cm (15 in); negative lymphadenopathy or JVD Chest Wall Chest: Positive normal inspection of the chest and symmetric chest movement; negative crepitus or tenderness Resp lung sounds: Positive clear to auscultation, good air exchange, normal expiratory time and normal respiratory effort; negative wheezes, rhonchi, rales, use of accessory muscles, wheeze present on forced exhalation or dullness to percussion Cardio Cardiac: Positive regular rate, regular rhythm, S1 normal and S2 normal; negative murmur, rub or gallop GI GI: Positive normal to inspection, normal bowel sounds and obese; negative distended, ascites or epigastric tenderness Genitourinary: Positive deferred Musc Musculoskeletal: Positive steady gait (In a bauer boot); negative using an assistive device for ambulation, kyphosis or scoliosis Skin Pulmonary Skin Exam: Positive intact; negative rash, lesion, ulcers, erythema, scaly or dermal atrophy Pulses Pulse: Yes radial pulses present Extremities Extremities: Yes capillary refill normal, No clubbing, No cyanosis, No edema, No stasis dermatitis Neuro Neurologic: Yes conversant, Yes no focal neuro deficits, Yes normal concentration, Yes understands questions, Yes cooperative, Yes normal cognition, Yes normal coordination Lymph Lymphatic: No lymphadenopathy Psych Appearance: Positive grossly normal Mental Status: Positive mental status grossly normal Mood: Positive congruent mood Affect: Positive normal affect Office Meds Flucelvax Quad [id number] (PF) Performing Provider: Donnell Valdivia MD Administered by: Silvia Whitmore on 01/07/18 10:39 Dose Route Admin Location Lot Number Expiration Date [place] Dispatcher 60 mcg IM Lt arm [id number] 08/01/18 41174-543-02 SEQIRUS Coding Level of Care Code Off vis,est,level 3 Diagnoses Sarcoidosis of lung D86.0 [place] on CPAP G47.33; Z99.89 History of breast cancer Z85.3 01/07/18 1048 <Electronically signed by Donnell Valdivia MD> Date Donnell Sherman Signature: Date (if applicable) CC: Elisa Baxter MD PROGRESS Observed: 01/02/2018 Status: COMPLETED Source: [place] 9:39 AM [facility] REPOSITORY O ID: [id number] Author: Kat (Pt) Yoan Service: (none) Author Type: Physical Therapist Type: Progress Notes Filed: 01/02/2018 12:56 PM Note Text: Episode Visit Count: 34 Therapist That Will Oversee The Plan Of Care: Kat Milton Start of Care Date: 07/14/17 Onset Date: 02/17/17 Patient Identified by Name and Date of : Yes REHABILITATION AND SPORTS THERAPY PHYSICAL THERAPY TREATMENT NOTE ASSESSMENT: Renae Elizondo demonstrated difficulty with decreased L ankle dorsiflexion AROM and increased pain past couple of days and improvements in gait quality. The patient will continue to benefit from continued skilled physical therapy for L ankle AROM, strength and gait. PLAN FOR NEXT VISIT: Continue to progress gait, strength and balance activities per symptom presentation. SUBJECTIVE: Pt notes pain is on dorsum/lateral foot. She states she has been tryin gto walk more in the house with just the cane and the shoe. She has done some walking with cane and shoe in the community (drug store). She states the past couple of days it has been about a 7/10. Pain Score: 7/10 Pain Location: Foot - Left Post Treatment Pain Score: 7/10 Pain Location: Foot - Left (and Achilles tendon) OBJECTIVE MEASURES WITH LEVEL OF FUNCTION: LE AROM L Ankle Dorsiflexion: 4 Degrees Gait Gait Observation: Pt demonstrated improved gait quality of L Le heel strike and push off with smoother flow and luis miguel. TREATMENT: Therapeutic Exercise: 1: Standing BAPS PWB left ball 3 and pegs, A/P, lateral 1x20 each. 2: Standing BAPS PWB ball 3, with 1wt plate, 1 x 10 reps CW and CCW with weight at each peg 3: stationary balancing on foam square in parallel bars working on symmetrical weight bearing and L ankle balance reactions 4: seated achilles stretches with strap x 30 sec holds 5: manual soft tissue mobs to Achilles tendon with pressure to tolerance Skilled Intervention: Patient was educated in proper exercise technique and purpose for exercises. Reviewed and educated patient on additions/changes for home exercise program pt was advised to increased frequency of L seated calf stretches. Skilled judgment was provided in selection of appropriate interventions. Correct performance of therapeutic exercises was facilitated with verbal and visual cuing. Patient education as noted. Gait Trainin: Gait with shoes and straight cane x 60 ft Skilled Intervention: Facilitated proper gait cycle with the use of verbal cues for correction of gait deviations identified in the objective section above. Skilled judgment used to assess proper use of assistive device. Billing: [facility]: Therapeutic Exercise ([id number]): 1:1 time: 35 minutes (2 units: 23-37 mins) Gait Training ([id number]): 1:1 time: 10 minutes (1 unit: 8-22 mins) Total time: 45 minutes Kat Milton PT CNTHERAPY Observed: 01/02/2018 Status: COMPLETED Source: [place] 9:30 AM [facility] [place] REPOSITORY OT/PT/Speech Visit (PTWS) RENAE ELIZONDO ([id number]) 1955 F Date Time Provider Department 01/02/18 9:30 AM KAT MILTON (PT) PTWS Date Time Provider Department Center 01/02/2018 9:30 AM [id number] MILTON (PT) PTWS [facility] Reason for Visit: Physical Therapy [503] Reason For Visit History Recorded Primary Visit Diagnosis:Arthritis, midfoot [M19.079] Allergies As of Date: 01/02/2018 Noted Allergy Reaction ADHESIVE TAPE (ROSINS) 02/13/2006 2 - Rash Comments: tore skin/blisters MORPHINE 02/05/2006 5 - Intolerance Comments: vomiting, shaking. NSAIDS (NON-STEROIDAL ANTI-INFLAM*10/05/2014 11 - Vomiting VASOTEC (ENALAPRIL MALEATE) 09/08/2008 Comments: nausea/doesn't work Date Reviewed: 11/10/2017 Reviewed by: Milana Humphrey Ma - Fully Assessed Prescriptions as of 01/02/2018 Sig: HYDROXYCHLOROQUINE 200 MG TAB* Take 1 tablet by mouth twice * DICLOFENAC 1 % TOPICAL GEL apply topically 4 grams to fo* LEFLUNOMIDE 20 MG TABLET Take 1 tablet by mouth once d* CHOLECALCIFEROL (VITAMIN D3) * Take 2,000 Units by mouth onc* PROLIA SUBCUTANEOUS Inject subcutaneously once e* CELECOXIB 200 MG CAPSULE Take 200 mg by mouth as neede* MAGNESIUM OXIDE 500 MG TABLET Taking 250mg. Take two tablet* ACETAMINOPHEN 500 MG TABLET Take 500 mg by mouth every 8 * CPAP CHIN STRAP, USED WITH CPAP DE* FLUTICASONE 50 MCG/ACTUATION * Use 1 [place] in each nostril d* FERROUS SULFATE 325 MG (65 MG* Take 325 mg by mouth daily wi* ASCORBIC ACID (VITAMIN C) 500* Take 500 mg by mouth three ti* CPAP AutoPAP 10-20 cmH2O, suitable* CYCLOBENZAPRINE 10 MG TABLET LEVOTHYROXINE 50 MCG TABLET Take 50 mcg by mouth daily be* CLOBETASOL 0.05 % TOPICAL CRE* as directed * GABAPENTIN 300 MG CAPSULE Take 300 mg by mouth three ti* * PROMETHAZINE 25 MG TABLET Take one(1) tablet every four* * ATIVAN 1 MG TABLET takes 1/2 tab as needed * FENTANYL 50 MCG/HR TRANSDERMA* Apply as directed. Change pat* * B COMPLEX 1 TABLET Take one(1) tablet daily. * MULTIVITAMIN,TX-MINERALS TABL* 1 tab daily Progress Notes: Kat Milton, PT 01/02/2018 12:56 PM Signed Episode Visit Count: 34 Therapist That Will Oversee The Plan Of Care: Kat Milton Start of Care Date: 07/14/17 Onset Date: 02/17/17 Patient Identified by Name and Date of : Yes REHABILITATION AND SPORTS THERAPY PHYSICAL THERAPY TREATMENT NOTE ASSESSMENT: Renae Elizondo demonstrated difficulty with decreased L ankle dorsiflexion AROM and increased pain past couple of days and improvements in gait quality. The patient will continue to benefit from continued skilled physical therapy for L ankle AROM, strength and gait. PLAN FOR NEXT VISIT: Continue to progress gait, strength and balance activities per symptom presentation. SUBJECTIVE: Pt notes pain is on dorsum/lateral foot. She states she has been tryin gto walk more in the house with just the cane and the shoe. She has done some walking with cane and shoe in the community (drug store). She states the past couple of days it has been about a 7/10. Pain Score: 7/10 Pain Location: Foot - Left Post Treatment Pain Score: 7/10 Pain Location: Foot - Left (and Achilles tendon) OBJECTIVE MEASURES WITH LEVEL OF FUNCTION: LE AROM L Ankle Dorsiflexion: 4 Degrees Gait Gait Observation: Pt demonstrated improved gait quality of L Le heel strike and push off with smoother flow and luis miguel. TREATMENT: Therapeutic Exercise: 1: Standing BAPS PWB left ball 3 and pegs, A/P, lateral 1x20 each. 2: Standing BAPS PWB ball 3, with 1wt plate, 1 x 10 reps CW and CCW with weight at each peg 3: stationary balancing on foam square in parallel bars working on symmetrical weight bearing and L ankle balance reactions 4: seated achilles stretches with strap x 30 sec holds 5: manual soft tissue mobs to Achilles tendon with pressure to tolerance Skilled Intervention: Patient was educated in proper exercise technique and purpose for exercises. Reviewed and educated patient on additions/changes for home exercise program pt was advised to increased frequency of L seated calf stretches. Skilled judgment was provided in selection of appropriate interventions. Correct performance of therapeutic exercises was facilitated with verbal and visual cuing. Patient education as noted. Gait Trainin: Gait with shoes and straight cane x 60 ft Skilled Intervention: Facilitated proper gait cycle with the use of verbal cues for correction of gait deviations identified in the objective section above. Skilled judgment used to assess proper use of assistive device. Billing: [facility]: Therapeutic Exercise ([id number]): 1:1 time: 35 minutes (2 units: 23-37 mins) Gait Training ([id number]): 1:1 time: 10 minutes (1 unit: 8-22 mins) Total time: 45 minutes Kat Milton PT PROGRESS Observed: 12/19/2017 Status: COMPLETED Source: [place] 10:21 AM [facility] [place] REPOSITORY HNO ID: [id number] Author: Kat (Pt) Yoan Service: (none) Author Type: Physical Therapist Type: Progress Notes Filed: 12/19/2017 1:16 PM Note Text: Episode Visit Count: 33 Therapist That Will Oversee The Plan Of Care: Kat Milton Start of Care Date: 07/14/17 Onset Date: 02/17/17 Patient Identified by Name and Date of : Yes REHABILITATION AND SPORTS THERAPY PHYSICAL THERAPY TREATMENT NOTE ASSESSMENT: Renae Elizondo demonstrated improvements in gait demonstrating short distances without assistive device. The patient will continue to benefit from continued skilled physical therapy for L LE strengthening and gait. PLAN FOR NEXT VISIT: May add balance board activities next visit. SUBJECTIVE: Pt notes some swelling L foot/ankle today. She continues to try to increase time on her feet, but it is limited d/t pain tolerance depending on the day. Pain Score: 6/10 Pain Location: Ankle - Left Post Treatment Pain Score: 6/10 Pain Location: Ankle - Left OBJECTIVE MEASURES WITH LEVEL OF FUNCTION: Gait Gait Observation: Pt to department ambulating independently with boot on L LE. Pt ambulated in the department with shoes (no boot), with and without cane. TREATMENT: Therapeutic Exercise: 1: Standing BAPS PWB left ball 3 and pegs, A/P, lateral and cw and ccw 1x20 each. 2: Standing BAPS PWB ball 3, with 1wt plate, 1 x 10 reps CW and CCW with weight at each peg 3: foam square step ups and over leading with L LE x [address] 4: stationary balancing on foam square in parallel bars working on symmetrical weight bearing and L ankle balance reactions 5: foam square step ups and over leading with L LE x [address] Skilled Intervention: Patient was educated in proper exercise technique and purpose for exercises. Skilled judgment was provided in selection of appropriate interventions. Correct performance of therapeutic exercises was facilitated with verbal and visual cuing. Patient education as noted. Gait Trainin: Gait with shoes and straight cane x 60 ft 2: Gait with shoes and no cane x 20 ft. Skilled Intervention: Facilitated proper gait cycle with the use of verbal and visual cues for correction of gait deviations identified in the objective section above. Skilled judgment used to assess proper use of assistive device. Billing: [facility]: Therapeutic Exercise ([id number]): 1:1 time: 27 minutes (2 units: 23-37 mins) Gait Training ([id number]): 1:1 time: 13 minutes (1 unit: 8-22 mins) Total time: 40 minutes Kat Milton PT CNTHERAPY Observed: 12/19/2017 Status: COMPLETED Source: [place] 10:15 AM [facility] [place] REPOSITORY OT/PT/Speech Visit (PTWS) RENAE ELIZONDO ([id number]) 1955 F Date Time Provider Department 12/19/17 10:15 AM KAT MILTON (PT) PTWS Date Time Provider Department Center 12/19/2017 10:15 AM [id number] MILTON (PT) PTWS [facility] Reason for Visit: Physical Therapy [503] Primary Visit Diagnosis:Arthritis, midfoot [M19.079] Allergies As of Date: 12/19/2017 Noted Allergy Reaction ADHESIVE TAPE (ROSINS) 02/13/2006 2 - Rash Comments: tore skin/blisters MORPHINE 02/05/2006 5 - Intolerance Comments: vomiting, shaking. NSAIDS (NON-STEROIDAL ANTI-INFLAM*10/05/2014 11 - Vomiting VASOTEC (ENALAPRIL MALEATE) 09/08/2008 Comments: nausea/doesn't work Date Reviewed: 11/10/2017 Reviewed by: Milana Humphrey Ma - Fully Assessed Prescriptions as of 12/19/2017 Sig: HYDROXYCHLOROQUINE 200 MG TAB* Take 1 tablet by mouth twice * DICLOFENAC 1 % TOPICAL GEL apply topically 4 grams to fo* LEFLUNOMIDE 20 MG TABLET Take 1 tablet by mouth once d* CHOLECALCIFEROL (VITAMIN D3) * Take 2,000 Units by mouth onc* PROLIA SUBCUTANEOUS Inject subcutaneously once e* CELECOXIB 200 MG CAPSULE Take 200 mg by mouth as neede* MAGNESIUM OXIDE 500 MG TABLET Taking 250mg. Take two tablet* ACETAMINOPHEN 500 MG TABLET Take 500 mg by mouth every 8 * CPAP CHIN STRAP, USED WITH CPAP DE* FLUTICASONE 50 MCG/ACTUATION * Use 1 [place] in each nostril d* FERROUS SULFATE 325 MG (65 MG* Take 325 mg by mouth daily wi* ASCORBIC ACID (VITAMIN C) 500* Take 500 mg by mouth three ti* CPAP AutoPAP 10-20 cmH2O, suitable* CYCLOBENZAPRINE 10 MG TABLET LEVOTHYROXINE 50 MCG TABLET Take 50 mcg by mouth daily be* CLOBETASOL 0.05 % TOPICAL CRE* as directed * GABAPENTIN 300 MG CAPSULE Take 300 mg by mouth three ti* * PROMETHAZINE 25 MG TABLET Take one(1) tablet every four* * ATIVAN 1 MG TABLET takes 1/2 tab as needed * FENTANYL 50 MCG/HR TRANSDERMA* Apply as directed. Change pat* * B COMPLEX 1 TABLET Take one(1) tablet daily. * MULTIVITAMIN,TX-MINERALS TABL* 1 tab daily Progress Notes: Kat Milton, PT 12/19/2017 1:16 PM Signed Episode Visit Count: 33 Therapist That Will Oversee The Plan Of Care: Kat Milton Start of Care Date: 07/14/17 Onset Date: 02/17/17 Patient Identified by Name and Date of : Yes REHABILITATION AND SPORTS THERAPY PHYSICAL THERAPY TREATMENT NOTE ASSESSMENT: Renae Elizondo demonstrated improvements in gait demonstrating short distances without assistive device. The patient will continue to benefit from continued skilled physical therapy for L LE strengthening and gait. PLAN FOR NEXT VISIT: May add balance board activities next visit. SUBJECTIVE: Pt notes some swelling L foot/ankle today. She continues to try to increase time on her feet, but it is limited d/t pain tolerance depending on the day. Pain Score: 6/10 Pain Location: Ankle - Left Post Treatment Pain Score: 6/10 Pain Location: Ankle - Left OBJECTIVE MEASURES WITH LEVEL OF FUNCTION: Gait Gait Observation: Pt to department ambulating independently with boot on L LE. Pt ambulated in the department with shoes (no boot), with and without cane. TREATMENT: Therapeutic Exercise: 1: Standing BAPS PWB left ball 3 and pegs, A/P, lateral and cw and ccw 1x20 each. 2: Standing BAPS PWB ball 3, with 1wt plate, 1 x 10 reps CW and CCW with weight at each peg 3: foam square step ups and over leading with L LE x [address] 4: stationary balancing on foam square in parallel bars working on symmetrical weight bearing and L ankle balance reactions 5: foam square step ups and over leading with L LE x [address] Skilled Intervention: Patient was educated in proper exercise technique and purpose for exercises. Skilled judgment was provided in selection of appropriate interventions. Correct performance of therapeutic exercises was facilitated with verbal and visual cuing. Patient education as noted. Gait Trainin: Gait with shoes and straight cane x 60 ft 2: Gait with shoes and no cane x 20 ft. Skilled Intervention: Facilitated proper gait cycle with the use of verbal and visual cues for correction of gait deviations identified in the objective section above. Skilled judgment used to assess proper use of assistive device. Billing: [facility]: Therapeutic Exercise ([id number]): 1:1 time: 27 minutes (2 units: 23-37 mins) Gait Training ([id number]): 1:1 time: 13 minutes (1 unit: 8-22 mins) Total time: 40 minutes Kat Milton PT PROGRESS Observed: 12/17/2017 Status: COMPLETED Source: [place] 1:08 PM [facility] REPOSITORY O ID: [id number] Author: Kat (Pt) Yoan Service: (none) Author Type: Physical Therapist Type: Progress Notes Filed: 12/17/2017 1:25 PM Note Text: Episode Visit Count: 32 Therapist That Will Oversee The Plan Of Care: Kat Milton Start of Care Date: 07/14/17 Onset Date: 02/17/17 Patient Identified by Name and Date of : Yes REHABILITATION AND SPORTS THERAPY PHYSICAL THERAPY PROGRESS REPORT PLAN OF CARE UPDATE: Assessment: Renae Eliznodo exhibits improvements in gait and function. She continues to be limited with walking in the community and stair negotiation. She is progressing slower than expected towards her therapy goals as demonstrated by: documented subjective information on progress and documented objective information regarding gait, strength, range of motion and overall function. She will benefit from continued skilled therapy requiring strengthening, gait and advanced gait activiteis in order to further improve gait, strength, AROM and function. Functional gains: Improved gait quality Increased endurance / activity tolerance Increased independence with HEP Increased strength Decreased intensity of pain Decreased frequency of pain Goals for Episode of Care: created on 07/14/17 through 09/13/17 Goals updated on 12/17/2017. [place] in home exercise program. (Met) Patient will decrease pain rating by 2 points to meet minimal clinical important difference for numeric pain rating scale. (Partially Met)- inconsistent Patient will increase active ROM of L ankle to allow pt to improved performance of ADLs and to normalize gait mechanics / gait pattern . (Met) Patient will increase strength of L LE to 4+ to 5/5 to allow for return to prior functional status and normalized gait mechanics. (Partially Met)- progressing Perform community ambulation, stair negotiation and undisturbed sleep with decreased report of symptoms/pain in 8 weeks. (Partially Met) Demonstrate improvement on functional score: Patient will increase his/her score on the Lower Extremity Functional Scale by at least 9 points to indicate a Minimal Clinical Important Difference. (Not Met) Normal gait. (Not Met) Planned Interventions, Frequency, and Duration: , 4 weeks Total Number of Visits Planned: 8 Patient to be seen for PLAN FOR NEXT VISIT: Continue to progress gait without assistive device along with advanced wieght bearing activities in parallel bars or with cane for assistance. SUBJECTIVE: Pt states she has been trying to ambulate without the boot as much as possible (though not for longer distances yet). She notes some increased pain top of foot. She feels this is d/t bending it more when she is walking on it. (Pt noes she was in the hospital a couple of days last week and this is why she missed her appts.). Pain Score: 5/10 Pain Location: Foot - Left Post Treatment Pain Score: 7/10 Pain Location: Ankle - Left OBJECTIVE MEASURES WITH LEVEL OF FUNCTION: LE AROM L Ankle Dorsiflexion: 6 Degrees L Ankle Plantar Flexion: 30 Degrees L Ankle Inversion: 20 L Ankle Eversion: 15 LE Strength L Ankle Dorsiflexion (L4): 4+/5 L Ankle Plantar Flexion: 4+/5 L Ankle Inversion: 4/5 L Ankle Eversion: 4-/5 Gait Gait Device: Cane Gait Deviations: Left Lower Extremity TREATMENT: Therapeutic Exercise: 1: Standing BAPS PWB left ball 2 and pegs, A/P, lateral and cw and ccw 1x20 each. 2: Standing BAPS PWB ball 3, with 1wt plate, 1 x 10 reps CW and CCW with weight at each peg 3: Standing BAPS PWB ball 2, with 1wt plate, 1 x 10 reps CW and CCW with weight at each peg 4: foam square step ups and over leading with L LE x [address] 5: stationary balancing on foam square in parallel bars working on symmetrical weight bearing and L ankle balance reactions Skilled Intervention: Patient was educated in proper exercise technique and purpose for exercises. Reviewed and educated patient on additions/changes for home exercise program and pt is to increase time in ambulation with shoes and straight cane. Skilled judgment was provided in selection of appropriate interventions. Correct performance of therapeutic exercises was facilitated with verbal and visual cuing. Patient education as noted. Objective measurements and reassessment. Gait Trainin: Gait with shoes and straight cane x 60 ft 2: Side stepping in // bars x 2 (R and L) each direction. Skilled Intervention: Facilitated proper gait cycle with the use of verbal and visual cues for correction of gait deviations identified in the objective section above. Skilled judgment used to assess proper use of assistive device. Billing: [facility]: Therapeutic Exercise ([id number]): 1:1 time: 25 minutes (2 units: 23-37 mins) Gait Training ([id number]): 1:1 time: 18 minutes (1 unit: 8-22 mins) Total time: 43 minutes Kat Milton PT CNTHERAPY Observed: 12/17/2017 Status: COMPLETED Source: [place] 9:30 AM [facility] [place] REPOSITORY OT/PT/Speech Visit (PTWS) CARORENAE L ([id number]) 1955 F Date Time Provider Department 12/17/17 9:30 AM KAT MILTON (PT) PTWS Date Time Provider Department Center 12/17/2017 9:30 AM [id number] MILTON (PT) PTWS [facility] Reason for Visit: PT Progress Note [1596] Primary Visit Diagnosis:Arthritis, midfoot [M19.079] Allergies As of Date: 12/17/2017 Noted Allergy Reaction ADHESIVE TAPE (ROSINS) 02/13/2006 2 - Rash Comments: tore skin/blisters MORPHINE 02/05/2006 5 - Intolerance Comments: vomiting, shaking. NSAIDS (NON-STEROIDAL ANTI-INFLAM*10/05/2014 11 - Vomiting VASOTEC (ENALAPRIL MALEATE) 09/08/2008 Comments: nausea/doesn't work Date Reviewed: 11/10/2017 Reviewed by: Milana Humphrey Ma - Fully Assessed Prescriptions as of 12/17/2017 Sig: HYDROXYCHLOROQUINE 200 MG TAB* Take 1 tablet by mouth twice * DICLOFENAC 1 % TOPICAL GEL apply topically 4 grams to fo* LEFLUNOMIDE 20 MG TABLET Take 1 tablet by mouth once d* CHOLECALCIFEROL (VITAMIN D3) * Take 2,000 Units by mouth onc* PROLIA SUBCUTANEOUS Inject subcutaneously once e* CELECOXIB 200 MG CAPSULE Take 200 mg by mouth as neede* MAGNESIUM OXIDE 500 MG TABLET Taking 250mg. Take two tablet* ACETAMINOPHEN 500 MG TABLET Take 500 mg by mouth every 8 * CPAP CHIN STRAP, USED WITH CPAP DE* FLUTICASONE 50 MCG/ACTUATION * Use 1 [place] in each nostril d* FERROUS SULFATE 325 MG (65 MG* Take 325 mg by mouth daily wi* ASCORBIC ACID (VITAMIN C) 500* Take 500 mg by mouth three ti* CPAP AutoPAP 10-20 cmH2O, suitable* CYCLOBENZAPRINE 10 MG TABLET LEVOTHYROXINE 50 MCG TABLET Take 50 mcg by mouth daily be* CLOBETASOL 0.05 % TOPICAL CRE* as directed * GABAPENTIN 300 MG CAPSULE Take 300 mg by mouth three ti* * PROMETHAZINE 25 MG TABLET Take one(1) tablet every four* * ATIVAN 1 MG TABLET takes 1/2 tab as needed * FENTANYL 50 MCG/HR TRANSDERMA* Apply as directed. Change pat* * B COMPLEX 1 TABLET Take one(1) tablet daily. * MULTIVITAMIN,TX-MINERALS TABL* 1 tab daily Progress Notes: Kat Milton, PT 12/17/2017 1:25 PM Addendum Episode Visit Count: 32 Therapist That Will Oversee The Plan Of Care: Kat Milton Start of Care Date: 07/14/17 Onset Date: 02/17/17 Patient Identified by Name and Date of : Yes REHABILITATION AND SPORTS THERAPY PHYSICAL THERAPY PROGRESS REPORT PLAN OF CARE UPDATE: Assessment: Renae Elizondo exhibits improvements in gait and function. She continues to be limited with walking in the community and stair negotiation. She is progressing slower than expected towards her therapy goals as demonstrated by: documented subjective information on progress and documented objective information regarding gait, strength, range of motion and overall function. She will benefit from continued skilled therapy requiring strengthening, gait and advanced gait activiteis in order to further improve gait, strength, AROM and function. Functional gains: Improved gait quality Increased endurance / activity tolerance Increased independence with HEP Increased strength Decreased intensity of pain Decreased frequency of pain Goals for Episode of Care: created on 07/14/17 through 09/13/17 Goals updated on 12/17/2017. [place] in home exercise program. (Met) Patient will decrease pain rating by 2 points to meet minimal clinical important difference for numeric pain rating scale. (Partially Met)- inconsistent Patient will increase active ROM of L ankle to allow pt to improved performance of ADLs and to normalize gait mechanics / gait pattern . (Met) Patient will increase strength of L LE to 4+ to 5/5 to allow for return to prior functional status and normalized gait mechanics. (Partially Met)- progressing Perform community ambulation, stair negotiation and undisturbed sleep with decreased report of symptoms/pain in 8 weeks. (Partially Met) Demonstrate improvement on functional score: Patient will increase his/her score on the Lower Extremity Functional Scale by at least 9 points to indicate a Minimal Clinical Important Difference. (Not Met) Normal gait. (Not Met) Planned Interventions, Frequency, and Duration: , 4 weeks Total Number of Visits Planned: 8 Patient to be seen for PLAN FOR NEXT VISIT: Continue to progress gait without assistive device along with advanced wieght bearing activities in parallel bars or with cane for assistance. SUBJECTIVE: Pt states she has been trying to ambulate without the boot as much as possible (though not for longer distances yet). She notes some increased pain top of foot. She feels this is d/t bending it more when she is walking on it. (Pt noes she was in the hospital a couple of days last week and this is why she missed her appts.). Pain Score: 5/10 Pain Location: Foot - Left Post Treatment Pain Score: 7/10 Pain Location: Ankle - Left OBJECTIVE MEASURES WITH LEVEL OF FUNCTION: LE AROM L Ankle Dorsiflexion: 6 Degrees L Ankle Plantar Flexion: 30 Degrees L Ankle Inversion: 20 L Ankle Eversion: 15 LE Strength L Ankle Dorsiflexion (L4): 4+/5 L Ankle Plantar Flexion: 4+/5 L Ankle Inversion: 4/5 L Ankle Eversion: 4-/5 Gait Gait Device: Cane Gait Deviations: Left Lower Extremity TREATMENT: Therapeutic Exercise: 1: Standing BAPS PWB left ball 2 and pegs, A/P, lateral and cw and ccw 1x20 each. 2: Standing BAPS PWB ball 3, with 1wt plate, 1 x 10 reps CW and CCW with weight at each peg 3: Standing BAPS PWB ball 2, with 1wt plate, 1 x 10 reps CW and CCW with weight at each peg 4: foam square step ups and over leading with L LE x [address] 5: stationary balancing on foam square in parallel bars working on symmetrical weight bearing and L ankle balance reactions Skilled Intervention: Patient was educated in proper exercise technique and purpose for exercises. Reviewed and educated patient on additions/changes for home exercise program and pt is to increase time in ambulation with shoes and straight cane. Skilled judgment was provided in selection of appropriate interventions. Correct performance of therapeutic exercises was facilitated with verbal and visual cuing. Patient education as noted. Objective measurements and reassessment. Gait Trainin: Gait with shoes and straight cane x 60 ft 2: Side stepping in // bars x 2 (R and L) each direction. Skilled Intervention: Facilitated proper gait cycle with the use of verbal and visual cues for correction of gait deviations identified in the objective section above. Skilled judgment used to assess proper use of assistive device. Billing: [facility]: Therapeutic Exercise (79525): 1:1 time: 25 minutes (2 units: 23-37 mins) Gait Training ([id number]): 1:1 time: 18 minutes (1 unit: 8-22 mins) Total time: 43 minutes Kat Milton PT Previous Version CHEST PA AND LATERAL Observed: 12/08/2017 Status: F Source: [place] 4:53 PM [facility] REPOSITORY [facility] Imaging Services [facility] [address] [place] [address] Chest PA and Lateral MR#: [id number] Acct: [id number] Name: RENAE ELIZONDO Rep #: [id number] : 1955 F 62 From: Terri Wong MD PCP: Elisa Baxter MD Status: REG CLI Study: Chest PA and Lateral Date of Exam: 12/08/17 Exam# [id number] Ordering Dr: Elisa Baxter MD STUDY: X-RAY CHEST REASON FOR EXAM: Female, 62 years old. Chest pain, sarcoid TECHNIQUE: Frontal and lateral views of the chest were obtained. COMPARISON: May 23, 2016 FINDINGS: The lungs are underaerated. There are no focal airspace opacities. There is no demonstrated pleural abnormality. The cardiac silhouette is normal in size allowing for low volume inspiration. The mediastinum and hilar regions are unremarkable. Normal visualized pulmonary arteries. There is atherosclerotic calcification of the thoracic aorta. There are diffuse degenerative changes of the visualized spine. There is dextroscoliosis of the thoracic spine. The visualized ribs, clavicles, and shoulders are unremarkable. There are surgical clips again seen in the right upper abdomen. Surgical clips are again seen over the right lower chest. RAD/Chest PA and Lateral IMPRESSION: No acute cardiopulmonary abnormalities. 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: Signed CBC W/DIFF, AUTOMATED Collected: 12/08/2017 Status: F Source: [place] 4:52 PM [facility] REPOSITORY TYPE CODE TESTS RESULT OUT OF RANGE REFERENCE UNITS LAB L100.1000 4.4-11.0 K/mm3 Normal WBC 4.6 LAB L100.1200 4.2-5.4 M/mm3 Normal RBC 4.43 LAB L100.1300 12.0-15.0 g/dl Normal HGB 13.2 LAB L100.1400 37-47 % Normal HCT 41.5 LAB L100.1500 81-99 fL Normal MCV 93.7 LAB L100.1600 27.0-32.0 pg Normal MCH 29.8 LAB L100.1700 32-36 g/gl Low MCHC 31.8 LAB L100.1810 11.6-14.6 % Normal RDW CV 12.9 LAB L100.1820 35.1-43.9 fl High RDW SD 44.1 LAB L100.1900 150-450 K/mm3 Normal PLT 198 LAB L100.2000 6.2-12.0 fl Normal MPV 9.3 LAB L100.2100 47-70 % Normal NEUT% 70.0 LAB L100.2200 19-41 % Low LY% 17.1 LAB L100.2300 0-10 % High MONO% 10.6 LAB L100.2400 0-5 % Normal EO% 1.5 LAB L100.2500 0-1 % Normal BASO% 0.6 LAB L100.2550 0.0-0.9 % Normal IM GRAN % 0.200 Result Comment: IG% - Immature Granulocytes (promyelocytes, myelocytes and metamyelocytes) > 1% indicates that a LEFT SHIFT is Present. LAB L100.2620 2.0-7.7 X10 3/uL Normal Absolute Neut 3.2 LAB L100.2720 0.83-4.51 X10 3/ul Low Absolute Lymph 0.79 Performed By: #### L100.0100, L101.9900 #### [facility] [address] [place], [address] ERYTHROCYTE SED RATE Collected: 12/08/2017 Status: F Source: [place] 4:52 PM [facility] REPOSITORY TYPE CODE TESTS RESULT OUT OF RANGE REFERENCE UNITS LAB L102.0000 0-30 mm/hr Normal SED RATE 29 Performed By: #### L100.0100, L101.9900 #### [facility] [address] [place], [place], [id number] COMPREHENSIVE METABOLIC Collected: 12/08/2017 Status: F Source: [facility] 4:52 PM [facility] REPOSITORY TYPE CODE TESTS RESULT OUT OF RANGE REFERENCE UNITS LAB L501.0100 74-106 mg/dL Normal GLU 95 Result Comment: Please note revised GLUCOSE reference range effective 2017. LAB L501.1000 7-18 mg/dL Normal BUN 16 LAB L501.1100 0.55-1.02 mg/dL Normal CREAT,SERUM 0.68 Result Comment: The validity of the calculated GFR AND GFRAA in patients over 70 years has not been determined. Clinical correlation is essential. LAB L501.1110 >60 mL/min Normal EST GFR 93 Result Comment: Non- GFR Calc LAB L501.1115 >60 mL/min Normal EST GFR - AA 112 Result Comment: GFR Calc LAB L501.1300 10-20 RATIO High BUN/CRE 23.5 LAB L501.1500 6.4-8.2 g/dL T Normal PROT 7.5 LAB L501.1800 3.2-5.0 g/dL Normal ALB 3.5 LAB L501.1950 2.2-4.2 g/dL Normal GLOB 4.0 LAB L501.2000 0.9-2.4 RATIO Normal A/G 0.9 LAB L501.2200 8.5-10.1 mg/dL CA Normal 8.6 LAB L501.4100 15-37 U/L Normal AST 29 LAB L501.4305 45-117 U/L Normal ALK P 89 LAB L501.4405 13-56 U/L Normal ALT 28 LAB L501.4600 0.20-1.00 mg/dL T Normal BILI 0.40 LAB L501.5300 136-145 mmol/L NA Normal 137 LAB L501.5600 3.5-5.1 mmol/L K Normal 4.5 LAB L501.5900 98-107 mmol/L CL Normal 103 LAB L501.6100 21.0-32.0 mmol/L Normal CO2 27.0 LAB L501.6200 5-15 Normal GAP 7 Performed By: #### L500.4050, L501.6710, L501.9520 #### [facility] [address] [place], [place], [id number] CRP Collected: 12/08/2017 Status: F Source: [place] 4:52 PM [facility] REPOSITORY TYPE CODE TESTS RESULT OUT OF RANGE REFERENCE UNITS LAB L501.6710 0.0-3.0 mg/L Normal < 2.90 C-REACTIVE PROT Result Comment: C-Reactive Protein (CRP) provides useful information for the diagnosis, therapy and monitoring of inflammatory processes and associated diseases. For the evaluation of Relative Risk for Cardiovascular Disease, a High Sensitivity CRP (HSCRP) should be ordered. Performed By: #### L500.4050, L501.6710, L501.9520 #### [facility] [address] [place], [place], [id number] THYROID STIM HORMONE Collected: 12/08/2017 Status: F Source: [place] ([facility]) 4:52 PM [facility] REPOSITORY TYPE CODE TESTS RESULT OUT OF RANGE REFERENCE UNITS LAB L501.9520 0.358-3.74 uIU/mL High TSH 4.60 Performed By: #### L500.4050, L501.6710, L501.9520 #### [facility] [address] [place], [place], [id number] PROGRESS Observed: 12/01/2017 Status: COMPLETED Source: [place] 10:40 AM [facility] REPOSITORY HNO ID: [id number] Author: Kat (Pt) Yoan Service: (none) Author Type: Physical Therapist Type: Progress Notes Filed: 12/01/2017 2:20 PM Note Text: Episode Visit Count: 31 Therapist That Will Oversee The Plan Of Care: Kat Milton Start of Care Date: 07/14/17 Onset Date: 02/17/17 Patient Identified by Name and Date of : Yes REHABILITATION AND SPORTS THERAPY PHYSICAL THERAPY TREATMENT NOTE ASSESSMENT: Renae Elizondo demonstrated difficulty with increased soreness today and improvements in advanced BAPS board to ball #3 and instructed in stair negotiation using cane without a railing. The patient will continue to benefit from continued skilled physical therapy for strengthening, AROM and gait. PLAN FOR NEXT VISIT: Continue to progress gait without assistive device along with advanced wieght bearing activities in parallel bars or with cane for assistance. SUBJECTIVE: Pt reports she had some increased soreness over the weekend. She states she was on her feet a fair amount, but not excessive. She denies any increased ankle/foot swelling. Pain Score: 6/10 Pain Location: Ankle - Left Post Treatment Pain Score: 7/10 Pain Location: Ankle - Left OBJECTIVE MEASURES WITH LEVEL OF FUNCTION: LE AROM L Ankle Dorsiflexion: 8 Degrees TREATMENT: Therapeutic Exercise: 1: Left towel toe scrunches 2x20. 2: Standing BAPS PWB left ball 3 and pegs, A/P, lateral and cw and ccw 2x10 each. 3: Standing BAPS PWB ball 2, with 1wt plate, 1 x 10 reps CW and CCW with weight at each peg 4: foam square step ups and over leading with L LE x [address] 5: stationary balancing on foam square in parallel bars working on symmetrical weight bearing and L ankle balance reactions Skilled Intervention: Patient was educated in proper exercise technique and purpose for exercises. Reviewed and educated patient on additions/changes for home exercise program. Skilled judgment was provided in selection of appropriate interventions. Correct performance of therapeutic exercises was facilitated with verbal and visual cuing. Patient education as noted. Gait Trainin: Instructed pt in stair negotiation using small based quad cane without railings. Pt navigated 4 steps up and down x 2 with supervision only after instruction. Skilled Intervention: Patient was provided stand by assist, supervision during pre-gait/gait training to prevent falls and insure safety. Facilitated proper gait cycle with the use of verbal and visual cues for correction of gait deviations identified in the objective section above. Education provided to patient regarding the proper sequence for stair negotiation using small based quad cane without railings. Billing: [facility]: Therapeutic Exercise (16798): 1:1 time: 30 minutes (2 units: 23-37 mins) Gait Training (40223): 1:1 time: 12 minutes (1 unit: 8-22 mins) Total time: 42 minutes Kat Milton PT CNTHERAPY Observed: 12/01/2017 Status: COMPLETED Source: [place] 10:30 AM [facility] REPOSITORY OT/PT/Speech Visit (PTWS) RENAE ELIZONDO ([id number]) 1955 F Date Time Provider Department 12/01/17 10:30 AM KAT [place] (PT) PTWS Date Time Provider Department Center 12/01/2017 10:30 AM [id number] [place] (PT) PTWS [facility] Reason for Visit: Physical Therapy [503] Primary Visit Diagnosis:Arthritis, midfoot [M19.079] Allergies As of Date: 12/01/2017 Noted Allergy Reaction ADHESIVE TAPE (ROSINS) 02/13/2006 2 - Rash Comments: tore skin/blisters MORPHINE 02/05/2006 5 - Intolerance Comments: vomiting, shaking. NSAIDS (NON-STEROIDAL ANTI-INFLAM*10/05/2014 11 - Vomiting VASOTEC (ENALAPRIL MALEATE) 09/08/2008 Comments: nausea/doesn't work Date Reviewed: 11/10/2017 Reviewed by: Milana Humphrey Ma - Fully Assessed Prescriptions as of 12/01/2017 Sig: HYDROXYCHLOROQUINE 200 MG TAB* Take 1 tablet by mouth twice * DICLOFENAC 1 % TOPICAL GEL apply topically 4 grams to fo* LEFLUNOMIDE 20 MG TABLET Take 1 tablet by mouth once d* CHOLECALCIFEROL (VITAMIN D3) * Take 2,000 Units by mouth onc* PROLIA SUBCUTANEOUS Inject subcutaneously once e* CELECOXIB 200 MG CAPSULE Take 200 mg by mouth as neede* MAGNESIUM OXIDE 500 MG TABLET Taking 250mg. Take two tablet* ACETAMINOPHEN 500 MG TABLET Take 500 mg by mouth every 8 * CPAP CHIN STRAP, USED WITH CPAP DE* FLUTICASONE 50 MCG/ACTUATION * Use 1 [place] in each nostril d* FERROUS SULFATE 325 MG (65 MG* Take 325 mg by mouth daily wi* ASCORBIC ACID (VITAMIN C) 500* Take 500 mg by mouth three ti* CPAP AutoPAP 10-20 cmH2O, suitable* CYCLOBENZAPRINE 10 MG TABLET LEVOTHYROXINE 50 MCG TABLET Take 50 mcg by mouth daily be* CLOBETASOL 0.05 % TOPICAL CRE* as directed * GABAPENTIN 300 MG CAPSULE Take 300 mg by mouth three ti* * PROMETHAZINE 25 MG TABLET Take one(1) tablet every four* * ATIVAN 1 MG TABLET takes 1/2 tab as needed * FENTANYL 50 MCG/HR TRANSDERMA* Apply as directed. Change pat* * B COMPLEX 1 TABLET Take one(1) tablet daily. * MULTIVITAMIN,TX-MINERALS TABL* 1 tab daily Progress Notes: Kat Milton, PT 12/01/2017 2:20 PM Signed Episode Visit Count: 31 Therapist That Will Oversee The Plan Of Care: Kat Milton Start of Care Date: 07/14/17 Onset Date: 02/17/17 Patient Identified by Name and Date of : Yes REHABILITATION AND SPORTS THERAPY PHYSICAL THERAPY TREATMENT NOTE ASSESSMENT: Renae Elizondo demonstrated difficulty with increased soreness today and improvements in advanced BAPS board to ball #3 and instructed in stair negotiation using cane without a railing. The patient will continue to benefit from continued skilled physical therapy for strengthening, AROM and gait. PLAN FOR NEXT VISIT: Continue to progress gait without assistive device along with advanced wieght bearing activities in parallel bars or with cane for assistance. SUBJECTIVE: Pt reports she had some increased soreness over the weekend. She states she was on her feet a fair amount, but not excessive. She denies any increased ankle/foot swelling. Pain Score: 6/10 Pain Location: Ankle - Left Post Treatment Pain Score: 7/10 Pain Location: Ankle - Left OBJECTIVE MEASURES WITH LEVEL OF FUNCTION: LE AROM L Ankle Dorsiflexion: 8 Degrees TREATMENT: Therapeutic Exercise: 1: Left towel toe scrunches 2x20. 2: Standing BAPS PWB left ball 3 and pegs, A/P, lateral and cw and ccw 2x10 each. 3: Standing BAPS PWB ball 2, with 1wt plate, 1 x 10 reps CW and CCW with weight at each peg 4: foam square step ups and over leading with L LE x [address] 5: stationary balancing on foam square in parallel bars working on symmetrical weight bearing and L ankle balance reactions Skilled Intervention: Patient was educated in proper exercise technique and purpose for exercises. Reviewed and educated patient on additions/changes for home exercise program. Skilled judgment was provided in selection of appropriate interventions. Correct performance of therapeutic exercises was facilitated with verbal and visual cuing. Patient education as noted. Gait Trainin: Instructed pt in stair negotiation using small based quad cane without railings. Pt navigated 4 steps up and down x 2 with supervision only after instruction. Skilled Intervention: Patient was provided stand by assist, supervision during pre-gait/gait training to prevent falls and insure safety. Facilitated proper gait cycle with the use of verbal and visual cues for correction of gait deviations identified in the objective section above. Education provided to patient regarding the proper sequence for stair negotiation using small based quad cane without railings. Billing: [facility]: Therapeutic Exercise ([id number]): 1:1 time: 30 minutes (2 units: 23-37 mins) Gait Training (40939): 1:1 time: 12 minutes (1 unit: 8-22 mins) Total time: 42 minutes Kat Milton PT PROGRESS Observed: 11/28/2017 Status: COMPLETED Source: [place] 10:38 AM [facility] REPOSITORY O ID: [id number] Author: Kat (Pt) Yoan Service: (none) Author Type: Physical Therapist Type: Progress Notes Filed: 11/28/2017 10:45 AM Note Text: Episode Visit Count: 30 Therapist That Will Oversee The Plan Of Care: Kat Milton Start of Care Date: 07/14/17 Onset Date: 02/17/17 Patient Identified by Name and Date of : Yes REHABILITATION AND SPORTS THERAPY PHYSICAL THERAPY TREATMENT NOTE ASSESSMENT: Renae Elizondo demonstrated improvements in decreased subjective pain intensity, gait (with no assistive device for short distances) and weight bearing tolerance (for symmetrical weight bearing through L LE with activities. The patient will continue to benefit from continued skilled physical therapy for strengthening, AROM and gait. PLAN FOR NEXT VISIT: Continue to progress gait without assistive device along with advanced wieght bearing activities in parallel bars or with cane for assistance. SUBJECTIVE: Pt reports her brother had a heart attack and she was not able to come to her previous two appts. She states she has been walking short distances at home without the cane (10-15ft). Pain Score: 5/10 Pain Location: Ankle - Left Post Treatment Pain Score: (not rated today) OBJECTIVE MEASURES WITH LEVEL OF FUNCTION: Gait Gait Observation: Pt demonstrates mildly decreased heel strike and toe off during ambulation without assistve device. Weight bearing is near symmetrical over short distances. TREATMENT: Therapeutic Exercise: 1: Left towel toe scrunches 2x20. 2: Standing BAPS PWB left ball 2 and pegs, A/P, lateral and cw and ccw 2x10 each. 3: Standing BAPS PWB ball 2, with 1wt plate, 1 x 10 reps CW and CCW with weight at each peg 4: stationary balancing on foam square in parallel bars working on symmetrical weight bearing and L ankle balance reactions 5: foam square step ups and over leading with L LE x [address] Skilled Intervention: Patient was educated in proper exercise technique and purpose for exercises. Reviewed and educated patient on additions/changes for home exercise program and pt to continue independently with HEP. Skilled judgment was provided in selection of appropriate interventions. Correct performance of therapeutic exercises was facilitated with verbal and visual cuing. Patient education as noted. Gait Trainin: Pt ambulated with shoes and no assistive device x 20'. Supervision only from therapist. 2: Side stepping in // bars x 2 (R and L) each direction. 3: Gait with shoes and straight cane x 40 ft Skilled Intervention: Facilitated proper gait cycle with the use of verbal cues for correction of gait deviations identified in the objective section above. Skilled judgment used to assess proper use of assistive device. Billing: [facility]: Therapeutic Exercise ([id number]): 1:1 time: 26 minutes (2 units: 23-37 mins) Gait Training (61483): 1:1 time: 17 minutes (1 unit: 8-22 mins) Total time: 43 minutes Kat Milton PT CNTHERAPY Observed: 11/28/2017 Status: COMPLETED Source: [place] 9:30 AM [facility] REPOSITORY OT/PT/Speech Visit (PTWS) RENAE ELIZONDO ([id number]) 1955 F Date Time Provider Department 11/28/17 9:30 AM KAT [facility] (PT) PTWS Date Time Provider Department Center 11/28/2017 9:30 AM [id number] [facility] (PT) PTWS [facility] Reason for Visit: Physical Therapy [503] Primary Visit Diagnosis:Arthritis, midfoot [M19.079] Allergies As of Date: 11/28/2017 Noted Allergy Reaction ADHESIVE TAPE (ROSINS) 02/13/2006 2 - Rash Comments: tore skin/blisters MORPHINE 02/05/2006 5 - Intolerance Comments: vomiting, shaking. NSAIDS (NON-STEROIDAL ANTI-INFLAM*10/05/2014 11 - Vomiting VASOTEC (ENALAPRIL MALEATE) 09/08/2008 Comments: nausea/doesn't work Date Reviewed: 11/10/2017 Reviewed by: Milana Humphrey Ma - Fully Assessed Prescriptions as of 11/28/2017 Sig: HYDROXYCHLOROQUINE 200 MG TAB* Take 1 tablet by mouth twice * DICLOFENAC 1 % TOPICAL GEL apply topically 4 grams to fo* LEFLUNOMIDE 20 MG TABLET Take 1 tablet by mouth once d* CHOLECALCIFEROL (VITAMIN D3) * Take 2,000 Units by mouth onc* PROLIA SUBCUTANEOUS Inject subcutaneously once e* CELECOXIB 200 MG CAPSULE Take 200 mg by mouth as neede* MAGNESIUM OXIDE 500 MG TABLET Taking 250mg. Take two tablet* ACETAMINOPHEN 500 MG TABLET Take 500 mg by mouth every 8 * CPAP CHIN STRAP, USED WITH CPAP DE* FLUTICASONE 50 MCG/ACTUATION * Use 1 [place] in each nostril d* FERROUS SULFATE 325 MG (65 MG* Take 325 mg by mouth daily wi* ASCORBIC ACID (VITAMIN C) 500* Take 500 mg by mouth three ti* CPAP AutoPAP 10-20 cmH2O, suitable* CYCLOBENZAPRINE 10 MG TABLET LEVOTHYROXINE 50 MCG TABLET Take 50 mcg by mouth daily be* CLOBETASOL 0.05 % TOPICAL CRE* as directed * GABAPENTIN 300 MG CAPSULE Take 300 mg by mouth three ti* * PROMETHAZINE 25 MG TABLET Take one(1) tablet every four* * ATIVAN 1 MG TABLET takes 1/2 tab as needed * FENTANYL 50 MCG/HR TRANSDERMA* Apply as directed. Change pat* * B COMPLEX 1 TABLET Take one(1) tablet daily. * MULTIVITAMIN,TX-MINERALS TABL* 1 tab daily Progress Notes: Kat Milton, PT 11/28/2017 10:45 AM Signed Episode Visit Count: 30 Therapist That Will Oversee The Plan Of Care: Kat Milton Start of Care Date: 07/14/17 Onset Date: 02/17/17 Patient Identified by Name and Date of : Yes REHABILITATION AND SPORTS THERAPY PHYSICAL THERAPY TREATMENT NOTE ASSESSMENT: Renae Elizondo demonstrated improvements in decreased subjective pain intensity, gait (with no assistive device for short distances) and weight bearing tolerance (for symmetrical weight bearing through L LE with activities. The patient will continue to benefit from continued skilled physical therapy for strengthening, AROM and gait. PLAN FOR NEXT VISIT: Continue to progress gait without assistive device along with advanced wieght bearing activities in parallel bars or with cane for assistance. SUBJECTIVE: Pt reports her brother had a heart attack and she was not able to come to her previous two appts. She states she has been walking short distances at home without the cane (10-15ft). Pain Score: 5/10 Pain Location: Ankle - Left Post Treatment Pain Score: (not rated today) OBJECTIVE MEASURES WITH LEVEL OF FUNCTION: Gait Gait Observation: Pt demonstrates mildly decreased heel strike and toe off during ambulation without assistve device. Weight bearing is near symmetrical over short distances. TREATMENT: Therapeutic Exercise: 1: Left towel toe scrunches 2x20. 2: Standing BAPS PWB left ball 2 and pegs, A/P, lateral and cw and ccw 2x10 each. 3: Standing BAPS PWB ball 2, with 1wt plate, 1 x 10 reps CW and CCW with weight at each peg 4: stationary balancing on foam square in parallel bars working on symmetrical weight bearing and L ankle balance reactions 5: foam square step ups and over leading with L LE x [address] Skilled Intervention: Patient was educated in proper exercise technique and purpose for exercises. Reviewed and educated patient on additions/changes for home exercise program and pt to continue independently with HEP. Skilled judgment was provided in selection of appropriate interventions. Correct performance of therapeutic exercises was facilitated with verbal and visual cuing. Patient education as noted. Gait Trainin: Pt ambulated with shoes and no assistive device x 20'. Supervision only from therapist. 2: Side stepping in // bars x 2 (R and L) each direction. 3: Gait with shoes and straight cane x 40 ft Skilled Intervention: Facilitated proper gait cycle with the use of verbal cues for correction of gait deviations identified in the objective section above. Skilled judgment used to assess proper use of assistive device. Billing: [facility]: Therapeutic Exercise ([id number]): 1:1 time: 26 minutes (2 units: 23-37 mins) Gait Training ([id number]): 1:1 time: 17 minutes (1 unit: 8-22 mins) Total time: 43 minutes Kat Milton PT PROGRESS Observed: 11/19/2017 Status: COMPLETED Source: [place] 11:48 AM [facility] [place] REPOSITORY HNO ID: [id number] Author: Kat (Pt) Yoan Service: (none) Author Type: Physical Therapist Type: Progress Notes Filed: 11/19/2017 12:41 PM Note Text: Episode Visit Count: 29 Therapist That Will Oversee The Plan Of Care: Kat Milton Start of Care Date: 07/14/17 Onset Date: 02/17/17 Patient Identified by Name and Date of : Yes REHABILITATION AND SPORTS THERAPY PHYSICAL THERAPY TREATMENT NOTE ASSESSMENT: Renae Elizondo demonstrated improvements in L ankle dorsiflexion AROM and progression of activities today. The patient will continue to benefit from continued skilled physical therapy for L ankle AROM, strength, proprioception and gait. PLAN FOR NEXT VISIT: Continue to progress advanced gait and balance/proprioception activities to tolerance. SUBJECTIVE: Pt states she was walking around her garden with her shoes on (without the boot, but did use her walker) and her Achilles bothered her more last night. It just felt so tight. Pain Score: 7/10 (constantly around a 5/10) Pain Location: Ankle - Left Frequency: Intermittent Post Treatment Pain Score: 7/10 OBJECTIVE MEASURES WITH LEVEL OF FUNCTION: LE AROM L Ankle Dorsiflexion: 10 Degrees (pulling in post lower leg) TREATMENT: Therapeutic Exercise: 1: Left towel toe scrunches 2x20. 2: Standing BAPS PWB left ball 2 and pegs, A/P, lateral and cw and ccw 2x10 each. 3: Standing BAPS PWB ball 2, with 1wt plate, 1 x 10 reps CW and CCW with weight at each peg 4: stationary balancing on foam square in parallel bars working on symmetrical weight bearing and L ankle balance reactions 5: foam square step ups and over leading with L LE x [address] Skilled Intervention: Patient was educated in proper exercise technique and purpose for exercises. Reviewed and educated patient on additions/changes for home exercise program and pt to continue with HEP. Skilled judgment was provided in selection of appropriate interventions. Correct performance of therapeutic exercises was facilitated with verbal and visual cuing. Patient education as noted. Gait Trainin: Side stepping in // bars x 2 (R and L) each direction. 2: Gait with shoes and quad cane x 120 ft and x 20 ft(x2). Skilled Intervention: Facilitated proper gait cycle with the use of verbal and visual cues for correction of gait deviations identified in the objective section above. Gait belt utilized during session for safety. Education provided to patient regarding the proper sequence for stepping negotiation on unsteady surface. Billing: [facility]: Therapeutic Exercise ([id number]): 1:1 time: 31 minutes (2 units: 23-37 mins) Gait Training ([id number]): 1:1 time: 14 minutes (1 unit: 8-22 mins) Total time: 45 minutes Kat Milton PT CNTHERAPY Observed: 11/19/2017 Status: COMPLETED Source: [place] 11:45 AM [facility] [place] REPOSITORY OT/PT/Speech Visit (PTWS) RENAE ELIZONDO ([id number]) 1955 F Date Time Provider Department 11/19/17 11:45 AM KAT MILTON (PT) PTWS Date Time Provider Department Center 11/19/2017 11:45 AM [id number] MILTON (PT) PTWS [facility] Reason for Visit: Physical Therapy [503] Primary Visit Diagnosis:Arthritis, midfoot [M19.079] Allergies As of Date: 11/19/2017 Noted Allergy Reaction ADHESIVE TAPE (ROSINS) 02/13/2006 2 - Rash Comments: tore skin/blisters MORPHINE 02/05/2006 5 - Intolerance Comments: vomiting, shaking. NSAIDS (NON-STEROIDAL ANTI-INFLAM*10/05/2014 11 - Vomiting VASOTEC (ENALAPRIL MALEATE) 09/08/2008 Comments: nausea/doesn't work Date Reviewed: 11/10/2017 Reviewed by: Milana Humphrey Ma - Fully Assessed Prescriptions as of 11/19/2017 Sig: HYDROXYCHLOROQUINE 200 MG TAB* Take 1 tablet by mouth twice * DICLOFENAC 1 % TOPICAL GEL apply topically 4 grams to fo* LEFLUNOMIDE 20 MG TABLET Take 1 tablet by mouth once d* CHOLECALCIFEROL (VITAMIN D3) * Take 2,000 Units by mouth onc* PROLIA SUBCUTANEOUS Inject subcutaneously once e* CELECOXIB 200 MG CAPSULE Take 200 mg by mouth as neede* MAGNESIUM OXIDE 500 MG TABLET Taking 250mg. Take two tablet* ACETAMINOPHEN 500 MG TABLET Take 500 mg by mouth every 8 * CPAP CHIN STRAP, USED WITH CPAP DE* FLUTICASONE 50 MCG/ACTUATION * Use 1 [place] in each nostril d* FERROUS SULFATE 325 MG (65 MG* Take 325 mg by mouth daily wi* ASCORBIC ACID (VITAMIN C) 500* Take 500 mg by mouth three ti* CPAP AutoPAP 10-20 cmH2O, suitable* CYCLOBENZAPRINE 10 MG TABLET LEVOTHYROXINE 50 MCG TABLET Take 50 mcg by mouth daily be* CLOBETASOL 0.05 % TOPICAL CRE* as directed * GABAPENTIN 300 MG CAPSULE Take 300 mg by mouth three ti* * PROMETHAZINE 25 MG TABLET Take one(1) tablet every four* * ATIVAN 1 MG TABLET takes 1/2 tab as needed * FENTANYL 50 MCG/HR TRANSDERMA* Apply as directed. Change pat* * B COMPLEX 1 TABLET Take one(1) tablet daily. * MULTIVITAMIN,TX-MINERALS TABL* 1 tab daily Progress Notes: Kat Milton, PT 11/19/2017 12:41 PM Signed Episode Visit Count: 29 Therapist That Will Oversee The Plan Of Care: Kat Milton Start of Care Date: 07/14/17 Onset Date: 02/17/17 Patient Identified by Name and Date of : Yes REHABILITATION AND SPORTS THERAPY PHYSICAL THERAPY TREATMENT NOTE ASSESSMENT: Renae Elizondo demonstrated improvements in L ankle dorsiflexion AROM and progression of activities today. The patient will continue to benefit from continued skilled physical therapy for L ankle AROM, strength, proprioception and gait. PLAN FOR NEXT VISIT: Continue to progress advanced gait and balance/proprioception activities to tolerance. SUBJECTIVE: Pt states she was walking around her garden with her shoes on (without the boot, but did use her walker) and her Achilles bothered her more last night. It just felt so tight. Pain Score: 7/10 (constantly around a 5/10) Pain Location: Ankle - Left Frequency: Intermittent Post Treatment Pain Score: 7/10 OBJECTIVE MEASURES WITH LEVEL OF FUNCTION: LE AROM L Ankle Dorsiflexion: 10 Degrees (pulling in post lower leg) TREATMENT: Therapeutic Exercise: 1: Left towel toe scrunches 2x20. 2: Standing BAPS PWB left ball 2 and pegs, A/P, lateral and cw and ccw 2x10 each. 3: Standing BAPS PWB ball 2, with 1wt plate, 1 x 10 reps CW and CCW with weight at each peg 4: stationary balancing on foam square in parallel bars working on symmetrical weight bearing and L ankle balance reactions 5: foam square step ups and over leading with L LE x [address] Skilled Intervention: Patient was educated in proper exercise technique and purpose for exercises. Reviewed and educated patient on additions/changes for home exercise program and pt to continue with HEP. Skilled judgment was provided in selection of appropriate interventions. Correct performance of therapeutic exercises was facilitated with verbal and visual cuing. Patient education as noted. Gait Trainin: Side stepping in // bars x 2 (R and L) each direction. 2: Gait with shoes and quad cane x 120 ft and x 20 ft(x2). Skilled Intervention: Facilitated proper gait cycle with the use of verbal and visual cues for correction of gait deviations identified in the objective section above. Gait belt utilized during session for safety. Education provided to patient regarding the proper sequence for stepping negotiation on unsteady surface. Billing: [facility]: Therapeutic Exercise ([id number]): 1:1 time: 31 minutes (2 units: 23-37 mins) Gait Training ([id number]): 1:1 time: 14 minutes (1 unit: 8-22 mins) Total time: 45 minutes Kat Milton PT PROGRESS Observed: 11/14/2017 Status: COMPLETED Source: [place] 8:08 AM [facility] [place] REPOSITORY HNO ID: [id number] Author: Kat (Pt) Yoan Service: (none) Author Type: Physical Therapist Type: Progress Notes Filed: 11/14/2017 8:58 AM Note Text: Episode Visit Count: 28 Therapist That Will Oversee The Plan Of Care: Kat Milton Start of Care Date: 07/14/17 Onset Date: 02/17/17 Patient Identified by Name and Date of : Yes REHABILITATION AND SPORTS THERAPY PHYSICAL THERAPY TREATMENT NOTE ASSESSMENT: Renae Elizondo demonstrated improvements in progression of activity today and subjective decreased intensity of pain rating. The patient will continue to benefit from continued skilled physical therapy for AROM, strength and gait. PLAN FOR NEXT VISIT: Continue with progression of weight bearing activities. SUBJECTIVE: Pt [place] She had a wheelchair, but was able to walk some on the concrete. States she was tired, but not too painful. Pain Score: 5/10 Pain Location: Ankle - Left Post Treatment Pain Score: 6/10 Pain Location: Foot - Left OBJECTIVE MEASURES WITH LEVEL OF FUNCTION: Balance Static Sitting Balance: Improved standing balance on foam square with more symmetrical weight bearing. TREATMENT: Therapeutic Exercise: 1: Left towel toe scrunches 2x20. 2: Standing BAPS PWB left ball 2 and pegs, A/P, lateral and cw and ccw 2x10 each. 3: Standing BAPS PWB ball 2, with 1wt plate, 1 x 10 reps CW and CCW with weight at each peg 4: stationary balancing on foam square in parallel bars working on symmetrical weight bearing and L ankle balance reactions Skilled Intervention: Patient was educated in proper exercise technique and purpose for exercises. Skilled judgment was provided in selection of appropriate interventions. Correct performance of therapeutic exercises was facilitated with verbal and visual cuing. Patient education as noted. Gait Trainin: Side stepping in // bars x 2 (R and L) each direction. 2: Gait with shoes and quad cane x 120 ft and x 20 ft Skilled Intervention: Facilitated proper gait cycle with the use of verbal and visual cues for correction of gait deviations identified in the objective section above. Education provided to patient regarding the proper sequence for multi-directional, flat surface negotiation. Billing: [facility]: Therapeutic Exercise ([id number]): 1:1 time: 30 minutes (2 units: 23-37 mins) Gait Training ([id number]): 1:1 time: 16 minutes (1 unit: 8-22 mins) Total time: 46 minutes Kat Milton PT CNTHERAPY Observed: 11/14/2017 Status: COMPLETED Source: [place] 8:00 AM [facility] [place] REPOSITORY OT/PT/Speech Visit (PTWS) RENAE ELIZONDO ([id number]) 1955 F Date Time Provider Department 11/14/17 8:00 AM KAT MILTON (PT) PTWS Date Time Provider Department Center 11/14/2017 8:00 AM [id number] MILTON (PT) PTWS [facility] Reason for Visit: Physical Therapy [503] Primary Visit Diagnosis:Arthritis, midfoot [M19.079] Allergies As of Date: 11/14/2017 Noted Allergy Reaction ADHESIVE TAPE (ROSINS) 02/13/2006 2 - Rash Comments: tore skin/blisters MORPHINE 02/05/2006 5 - Intolerance Comments: vomiting, shaking. NSAIDS (NON-STEROIDAL ANTI-INFLAM*10/05/2014 11 - Vomiting VASOTEC (ENALAPRIL MALEATE) 09/08/2008 Comments: nausea/doesn't work Date Reviewed: 11/10/2017 Reviewed by: Milana Humphrey Ma - Fully Assessed Prescriptions as of 11/14/2017 Sig: HYDROXYCHLOROQUINE 200 MG TAB* Take 1 tablet by mouth twice * DICLOFENAC 1 % TOPICAL GEL apply topically 4 grams to fo* LEFLUNOMIDE 20 MG TABLET Take 1 tablet by mouth once d* CHOLECALCIFEROL (VITAMIN D3) * Take 2,000 Units by mouth onc* PROLIA SUBCUTANEOUS Inject subcutaneously once e* CELECOXIB 200 MG CAPSULE Take 200 mg by mouth as neede* MAGNESIUM OXIDE 500 MG TABLET Taking 250mg. Take two tablet* ACETAMINOPHEN 500 MG TABLET Take 500 mg by mouth every 8 * CPAP CHIN STRAP, USED WITH CPAP DE* FLUTICASONE 50 MCG/ACTUATION * Use 1 [place] in each nostril d* FERROUS SULFATE 325 MG (65 MG* Take 325 mg by mouth daily wi* ASCORBIC ACID (VITAMIN C) 500* Take 500 mg by mouth three ti* CPAP AutoPAP 10-20 cmH2O, suitable* CYCLOBENZAPRINE 10 MG TABLET LEVOTHYROXINE 50 MCG TABLET Take 50 mcg by mouth daily be* CLOBETASOL 0.05 % TOPICAL CRE* as directed * GABAPENTIN 300 MG CAPSULE Take 300 mg by mouth three ti* * PROMETHAZINE 25 MG TABLET Take one(1) tablet every four* * ATIVAN 1 MG TABLET takes 1/2 tab as needed * FENTANYL 50 MCG/HR TRANSDERMA* Apply as directed. Change pat* * B COMPLEX 1 TABLET Take one(1) tablet daily. * MULTIVITAMIN,TX-MINERALS TABL* 1 tab daily Progress Notes: Kat Milton PT 11/14/2017 8:58 AM Signed Episode Visit Count: 28 Therapist That Will Oversee The Plan Of Care: Kat Milton Start of Care Date: 07/14/17 Onset Date: 02/17/17 Patient Identified by Name and Date of : Yes REHABILITATION AND SPORTS THERAPY PHYSICAL THERAPY TREATMENT NOTE ASSESSMENT: Renae Elizondo demonstrated improvements in progression of activity today and subjective decreased intensity of pain rating. The patient will continue to benefit from continued skilled physical therapy for AROM, strength and gait. PLAN FOR NEXT VISIT: Continue with progression of weight bearing activities. SUBJECTIVE: Pt reports [place] She had a wheelchair, but was able to walk some on the concrete. States she was tired, but not too painful. Pain Score: 5/10 Pain Location: Ankle - Left Post Treatment Pain Score: 6/10 Pain Location: Foot - Left OBJECTIVE MEASURES WITH LEVEL OF FUNCTION: Balance Static Sitting Balance: Improved standing balance on foam square with more symmetrical weight bearing. TREATMENT: Therapeutic Exercise: 1: Left towel toe scrunches 2x20. 2: Standing BAPS PWB left ball 2 and pegs, A/P, lateral and cw and ccw 2x10 each. 3: Standing BAPS PWB ball 2, with 1wt plate, 1 x 10 reps CW and CCW with weight at each peg 4: stationary balancing on foam square in parallel bars working on symmetrical weight bearing and L ankle balance reactions Skilled Intervention: Patient was educated in proper exercise technique and purpose for exercises. Skilled judgment was provided in selection of appropriate interventions. Correct performance of therapeutic exercises was facilitated with verbal and visual cuing. Patient education as noted. Gait Trainin: Side stepping in // bars x 2 (R and L) each direction. 2: Gait with shoes and quad cane x 120 ft and x 20 ft Skilled Intervention: Facilitated proper gait cycle with the use of verbal and visual cues for correction of gait deviations identified in the objective section above. Education provided to patient regarding the proper sequence for multi-directional, flat surface negotiation. Billing: [facility]: Therapeutic Exercise ([id number]): 1:1 time: 30 minutes (2 units: 23-37 mins) Gait Training ([id number]): 1:1 time: 16 minutes (1 unit: 8-22 mins) Total time: 46 minutes Kat Milton, PT PROGRESS Observed: 11/12/2017 Status: COMPLETED Source: [place] 9:43 AM [facility] [place] REPOSITORY HNO ID: [id number] Author: Kat (Pt) Yoan Service: (none) Author Type: Physical Therapist Type: Progress Notes Filed: 11/12/2017 2:20 PM Note Text: Episode Visit Count: 27 Therapist That Will Oversee The Plan Of Care: Kat Milton Start of Care Date: 07/14/17 Onset Date: 02/17/17 Patient Identified by Name and Date of : Yes REHABILITATION AND SPORTS THERAPY PHYSICAL THERAPY PROGRESS REPORT PLAN OF CARE UPDATE: Assessment: Renae Elizondo exhibits improvements in L foot/ankle edema, L ankle inversion and eversion AROM, L ankle strength and gait. She continues to be limited with walking in the community and stair negotiation. She is progressing slower than expected towards her therapy goals as demonstrated by: documented subjective information on progress and documented objective information regarding gait, ADL's, strength, range of motion and patient reported outcome measures. She will benefit from continued skilled therapy requiring strengthening, proprioception and gait instruction in order to further improve L ankle AROM, strength , function and gait. Functional gains: Improved gait quality Increased endurance / activity tolerance Increased independence with HEP Increased ROM Increased strength Reduce circumferential /volumetric measurement Goals for Episode of Care: created on 07/14/17 through 09/13/17 Goals updated on 10/13/2017. [place] in home exercise program. (Met) Patient will decrease pain rating by 2 points to meet minimal clinical important difference for numeric pain rating scale. (Partially Met)- inconsistent Patient will increase active ROM of L ankle to allow pt to improved performance of ADLs and to normalize gait mechanics / gait pattern . (Partially Met)- progressing Patient will increase strength of L LE to 4+ to 5/5 to allow for return to prior functional status and normalized gait mechanics. (Partially Met)- progressing Perform community ambulation, stair negotiation and undisturbed sleep with decreased report of symptoms/pain in 8 weeks. (Partially Met) Demonstrate improvement on functional score: Patient will increase his/her score on the Lower Extremity Functional Scale by at least 9 points to indicate a Minimal Clinical Important Difference. (Not Met) Normal gait. (Not Met) Planned Interventions, Frequency, and Duration: 2x/week, 4 weeks Total Number of Visits Planned: 16 Patient to be seen for PLAN FOR NEXT VISIT: Progress weight bearing activities including strength/proprioception and gait. SUBJECTIVE: Pt states she can stand for about 1.5 to 2 hours. She feels she was on her feet 2 hours at a time and feels it is not as swollen today. Currently she is having more arthritis and fibromyalgia pain. Pain Score: 6/10 Pain Location: Ankle - Left Description: Tightness Post Treatment Pain Score: (not stated ) OBJECTIVE MEASURES WITH LEVEL OF FUNCTION: Ankle Observations Comments: 2 above mall: L 22.5; B mall: L 28; heel: L 34; midfoot: L 27; MTP: L 25. LE AROM L Ankle Dorsiflexion: 9 Degrees L Ankle Plantar Flexion: 42 Degrees L Ankle Inversion: 30 L Ankle Eversion: 20 LE Strength L Ankle Dorsiflexion (L4): 4+/5 L Ankle Plantar Flexion: 4+/5 L Ankle Inversion: 4-/5 L Ankle Eversion: 3+/5 TREATMENT: Therapeutic Exercise: 1: Left towel toe scrunches 2x20. 2: Standing BAPS PWB left ball 2 and pegs, A/P, lateral and cw and ccw 2x10 each. 3: Standing BAPS PWB ball 2, with 1wt plate, 5 reps CW and CCW with weight at each peg Skilled Intervention: Patient was educated in proper exercise technique and purpose for exercises. Reviewed and educated patient on additions/changes for home exercise program. Skilled judgment was provided in selection of appropriate interventions. Correct performance of therapeutic exercises was facilitated with verbal and visual cuing. Patient education as noted. Objective measurements and reassessment. Gait Trainin: Gait with shoes and quad cane x 120 ft and x 40 ft 2: Side stepping in // bars x 2 (R and L) each direction. Skilled Intervention: Patient was provided supervision, independence during pre-gait/gait training to prevent falls and insure safety. Facilitated proper gait cycle with the use of verbal and visual cues for correction of gait deviations identified in the objective section above. Education provided to patient regarding the proper sequence for level surfaces and negotiating direction changes. Billing: [facility]: Therapeutic Exercise ([id number]): 1:1 time: 30 minutes (2 units: 23-37 mins) Gait Training ([id number]): 1:1 time: 12 minutes (1 unit: 8-22 mins) Total time: 42 minutes Kat Milton PT CNTHERAPY Observed: 11/12/2017 Status: COMPLETED Source: [place] 9:30 AM [facility] [place] REPOSITORY OT/PT/Speech Visit (PTWS) RENAE ELIZONDO ([id number]) 1955 Date Time Provider Department 11/12/17 9:30 AM KAT MILTON (PT) PTWS Date Time Provider Department Center 11/12/2017 9:30 AM [id number] MILTON (PT) PTWS [facility] Reason for Visit: PT Progress Note [1596] Reason For Visit History Recorded Primary Visit Diagnosis:Arthritis, midfoot [M19.079] Allergies As of Date: 11/12/2017 Noted Allergy Reaction ADHESIVE TAPE (ROSINS) 02/13/2006 2 - Rash Comments: tore skin/blisters MORPHINE 02/05/2006 5 - Intolerance Comments: vomiting, shaking. NSAIDS (NON-STEROIDAL ANTI-INFLAM*10/05/2014 11 - Vomiting VASOTEC (ENALAPRIL MALEATE) 09/08/2008 Comments: nausea/doesn't work Date Reviewed: 11/10/2017 Reviewed by: Milana Humphrey Ma - Fully Assessed Prescriptions as of 11/12/2017 Sig: HYDROXYCHLOROQUINE 200 MG TAB* Take 1 tablet by mouth twice * DICLOFENAC 1 % TOPICAL GEL apply topically 4 grams to fo* LEFLUNOMIDE 20 MG TABLET Take 1 tablet by mouth once d* CHOLECALCIFEROL (VITAMIN D3) * Take 2,000 Units by mouth onc* PROLIA SUBCUTANEOUS Inject subcutaneously once e* CELECOXIB 200 MG CAPSULE Take 200 mg by mouth as neede* MAGNESIUM OXIDE 500 MG TABLET Taking 250mg. Take two tablet* ACETAMINOPHEN 500 MG TABLET Take 500 mg by mouth every 8 * CPAP CHIN STRAP, USED WITH CPAP DE* FLUTICASONE 50 MCG/ACTUATION * Use 1 [place] in each nostril d* FERROUS SULFATE 325 MG (65 MG* Take 325 mg by mouth daily wi* ASCORBIC ACID (VITAMIN C) 500* Take 500 mg by mouth three ti* CPAP AutoPAP 10-20 cmH2O, suitable* CYCLOBENZAPRINE 10 MG TABLET LEVOTHYROXINE 50 MCG TABLET Take 50 mcg by mouth daily be* CLOBETASOL 0.05 % TOPICAL CRE* as directed * GABAPENTIN 300 MG CAPSULE Take 300 mg by mouth three ti* * PROMETHAZINE 25 MG TABLET Take one(1) tablet every four* * ATIVAN 1 MG TABLET takes 1/2 tab as needed * FENTANYL 50 MCG/HR TRANSDERMA* Apply as directed. Change pat* * B COMPLEX 1 TABLET Take one(1) tablet daily. * MULTIVITAMIN,TX-MINERALS TABL* 1 tab daily Progress Notes: Kat Milton, PT 11/12/2017 2:20 PM Signed Episode Visit Count: 27 Therapist That Will Oversee The Plan Of Care: Kat Milton Start of Care Date: 07/14/17 Onset Date: 02/17/17 Patient Identified by Name and Date of : Yes REHABILITATION AND SPORTS THERAPY PHYSICAL THERAPY PROGRESS REPORT PLAN OF CARE UPDATE: Assessment: Renae Elizondo exhibits improvements in L foot/ankle edema, L ankle inversion and eversion AROM, L ankle strength and gait. She continues to be limited with walking in the community and stair negotiation. She is progressing slower than expected towards her therapy goals as demonstrated by: documented subjective information on progress and documented objective information regarding gait, ADL's, strength, range of motion and patient reported outcome measures. She will benefit from continued skilled therapy requiring strengthening, proprioception and gait instruction in order to further improve L ankle AROM, strength , function and gait. Functional gains: Improved gait quality Increased endurance / activity tolerance Increased independence with HEP Increased ROM Increased strength Reduce circumferential /volumetric measurement Goals for Episode of Care: created on 07/14/17 through 09/13/17 Goals updated on 10/13/2017. [place] in home exercise program. (Met) Patient will decrease pain rating by 2 points to meet minimal clinical important difference for numeric pain rating scale. (Partially Met)- inconsistent Patient will increase active ROM of L ankle to allow pt to improved performance of ADLs and to normalize gait mechanics / gait pattern . (Partially Met)- progressing Patient will increase strength of L LE to 4+ to 5/5 to allow for return to prior functional status and normalized gait mechanics. (Partially Met)- progressing Perform community ambulation, stair negotiation and undisturbed sleep with decreased report of symptoms/pain in 8 weeks. (Partially Met) Demonstrate improvement on functional score: Patient will increase his/her score on the Lower Extremity Functional Scale by at least 9 points to indicate a Minimal Clinical Important Difference. (Not Met) Normal gait. (Not Met) Planned Interventions, Frequency, and Duration: 2x/week, 4 weeks Total Number of Visits Planned: 16 Patient to be seen for PLAN FOR NEXT VISIT: Progress weight bearing activities including strength/proprioception and gait. SUBJECTIVE: Pt states she can stand for about 1.5 to 2 hours. She feels she was on her feet 2 hours at a time and feels it is not as swollen today. Currently she is having more arthritis and fibromyalgia pain. Pain Score: 6/10 Pain Location: Ankle - Left Description: Tightness Post Treatment Pain Score: (not stated ) OBJECTIVE MEASURES WITH LEVEL OF FUNCTION: Ankle Observations Comments: 2 above mall: L 22.5; B mall: L 28; heel: L 34; midfoot: L 27; MTP: L 25. LE AROM L Ankle Dorsiflexion: 9 Degrees L Ankle Plantar Flexion: 42 Degrees L Ankle Inversion: 30 L Ankle Eversion: 20 LE Strength L Ankle Dorsiflexion (L4): 4+/5 L Ankle Plantar Flexion: 4+/5 L Ankle Inversion: 4-/5 L Ankle Eversion: 3+/5 TREATMENT: Therapeutic Exercise: 1: Left towel toe scrunches 2x20. 2: Standing BAPS PWB left ball 2 and pegs, A/P, lateral and cw and ccw 2x10 each. 3: Standing BAPS PWB ball 2, with 1wt plate, 5 reps CW and CCW with weight at each peg Skilled Intervention: Patient was educated in proper exercise technique and purpose for exercises. Reviewed and educated patient on additions/changes for home exercise program. Skilled judgment was provided in selection of appropriate interventions. Correct performance of therapeutic exercises was facilitated with verbal and visual cuing. Patient education as noted. Objective measurements and reassessment. Gait Trainin: Gait with shoes and quad cane x 120 ft and x 40 ft 2: Side stepping in // bars x 2 (R and L) each direction. Skilled Intervention: Patient was provided supervision, independence during pre-gait/gait training to prevent falls and insure safety. Facilitated proper gait cycle with the use of verbal and visual cues for correction of gait deviations identified in the objective section above. Education provided to patient regarding the proper sequence for level surfaces and negotiating direction changes. Billing: [facility]: Therapeutic Exercise (53976): 1:1 time: 30 minutes (2 units: 23-37 mins) Gait Training ([id number]): 1:1 time: 12 minutes (1 unit: 8-22 mins) Total time: 42 minutes Kat Milton, PT HISTORY PHYSICAL Observed: 11/10/2017 Status: COMPLETED Source: [place] 1:07 PM [facility] [place] REPOSITORY HNO ID: [id number] Author: Chuck Hunter Service: (none) Author Type: Physician Type: HANDP Filed: 11/10/2017 1:43 PM Note Text: [facility] Orthopaedic AND Rheumatologic [place] Department of Rheumatic and Immunologic Diseases SUBJECTIVE: . Brief History of Present Illness: 62 year old female is evaluated in the Rheumatology Clinic for sarcoidosis, osteoporosis and multiple complaints From Maryjane Clark's last visit: Prior Pertinent History Pulmonary sacroid-> Abnormal CT Chest with Multiple Scattered Nodules seen on the right lung on CT Chest September 16, 2014 Received steroids at that time. Complicated by -> Hx of poorly differentiated ductal carcinoma of the right breast diagnosed in January 2006?s/p Right Modified Radical mastectomy August 27, 2006 s/p neoadjuvant chemotherapy AND?RT to chest wall and axilla 12/01/06. ? ? Sacroid, (known prior). Arava was initiated 01/2016 jnt pain. + Plaquenil for the sacroid Left ankle- severe degenerative changes, considering surgery. Already had injection-> ?XR guided injection midfoot- needs surgery. ? Takes tylenol and celebrex for OA pain- DDD IMPRESSION: Degenerative osteoarthritis second and third DIP joints.- also with prior fusion. ? Bone health- Treatment prolia (not by Rheum), DXA ordered in 2016 (none prior) The prolia is given by her PCP.She had the DXA done last year by PCP and was told + osteoporosis. Takes a calcium supplement and Mag supplements. TODAY Shoulders and neck are bothering her quite a bit Later in the day aches more often Moving around neck and shoulder seem to make the pain worse Hands also stiff in the morning voltaran gel seems to help the kayla Takes celebrex once every 3 days But tears stomach up Has tried Nausea pills with the celbrex which helps a bit REVIEW OF SYSTEMS: November 10, 2017 CONSTITUTIONAL: Fever: No Fatigue: Yes Pain: Yes EYES: Pain: Yes Redness: No Loss of vision: No Dryness: Yes EAR, NOSE, MOUTH, THROAT: Nose bleeds: No Hearing loss: No Sores in mouth: No Swallowing problems: No Dry mouth: No CARDIOVASCULAR: Chest pain: No Swelling in the feet or legs: Yes RESPIRATORY: Shortness of breath: No Pain with breathing: No Chronic cough: No Coughing up blood: No , GASTROINTESTINAL: Heartburn: No Nausea: Yes Diarrhea: Yes Blood in the stool or black stool: No Abdominal pain: No GENITOURINARY: Blood in urine: No Pain or burning on urination: No] MUSCULOSKELETAL: Joint pain: Yes Joint swelling: Yes Morning stiffness in joints: Yes Muscle weakness: Yes Back pain: Yes SKIN: Rashes: No Sun sensitive rashes: Yes Color changes of hands or feet in the cold: Yes Hair loss: Yes Nail changes: Yes NEUROLOGICAL: Headaches: Yes Dizziness: Yes Numbness or tingling: Yes Memory loss: Yes Seizures: No HEMATOLOGIC/LYMPHATIC: Swollen glands: No Anemia: Yes ALLERGIES/IMMUNOLOGIC: Allergies (other than medications): Yes Increased susceptibility to infection: No KNOWN MEDICAL CONDITIONS: Diabetes: No Thyroid disease: Yes High blood pressure: No PMHx: PAST MEDICAL HISTORY Diagnosis Date - Anemia - Hypothyroidism - Malignant neoplasm of breast (female), unspecified site - Obstructive sleep apnea - Other and unspecified diseases of upper respiratory tract - RA (rheumatoid arthritis) (HCC) - S/P gastric bypass - Sarcoidosis (HCC) PSHx: PAST SURGICAL HISTORY Procedure Laterality Date - APPENDECTOMY 2000 Done with gastric bypass - COLONOSCOP W/ OR W/O BRSH SPEC 12/05/2008,12 Colonoscopy - FUSION FINGER JOINT Right 09/05/2017 Right index and middle fingers DIP joint fusion, Right 5th finger PIP joint fusion - GASTRIC BYPASS-MORBID OBESITY 2000 - MASTECTOMY, MODIFIED RADICAL 08/27/2006 Right MRM - PAST SURGICAL HISTORY OF 2000 venous ligation leg - PAST SURGICAL HISTORY OF Carpal Tunnel - PAST SURGICAL HISTORY OF Left thumb repair - PAST SURGICAL HISTORY OF port acath LEFT - PAST SURGICAL HISTORY OF removal of port - PAST SURGICAL HISTORY OF Left 01/2017 lt 2nd AND 3rd digit repair - OR ANESTH,REPAIR LO ABD HERNIA NOS - OR ANESTH,VAGINAL HYSTERECTOMY 2003 BSO - REMOVAL GALLBLADDER 1992 Cholecystectomy MEDICATIONS: diclofenac sodium (VOLTAREN) 1 % topical gel apply topically 4 grams to foot four times a day hydroxychloroquine (PLAQUENIL) 200 mg tablet TAKE ONE TABLET BY MOUTH TWICE DAILY leflunomide (ARAVA) 20 mg tablet Take 1 tablet by mouth once daily. cholecalciferol (VITAMIN D-3) 2,000 unit tablet Take 2,000 Units by mouth once daily. DENOSUMAB (PROLIA SUBCUTANEOUS) Inject subcutaneously once every 6 months. celecoxib (CELEBREX) 200 mg capsule Take 200 mg by mouth as needed. Magnesium Oxide 500 mg tab Taking 250mg. Take two tablets by mouth once daily. acetaminophen (TYLENOL EXTRA STRENGTH) 500 mg tablet Take 500 mg by mouth every 8 hours as needed. CPAP CHIN STRAP, USED WITH CPAP DEVICE fluticasone (FLONASE) 50 mcg/actuation nasal spray Use 1 [place] in each nostril daily at bedtime. ferrous sulfate 325 mg (65 mg iron) tablet Take 325 mg by mouth daily with breakfast. ascorbic acid (VITAMIN C) 500 mg tablet Take 500 mg by mouth three times daily. CPAP AutoPAP 10-20 cmH2O, suitable mask, humidity, filters. Lifetime supplies. Dx: 327.23. Fax compliance rpt to [phone] in 4-6 weeks. cyclobenzaprine (FLEXERIL) 10 mg tablet levothyroxine (LEVOTHROID) 50 mcg tablet Take 50 mcg by mouth daily before breakfast. CLOBETASOL 0.05 % cream as directed gabapentin 300 mg capsule Take 300 mg by mouth three times daily. PROMETHAZINE 25 MG TAB Take one(1) tablet every four(4) to six(6) hours as needed for nausea. lorazepam(ATIVAN 1 MG TAB) takes 1/2 tab as needed fentanyl 50 mcg/hr TRANSDERM. PT72 Apply as directed. Change patch every 3 days. B COMPLEX 1 TAB Take one(1) tablet daily. MULTIVITAMIN,TX-MINERALS TAB 1 tab daily ALLERGIES: ALLERGIES Allergen Reactions - Adhesive Tape (Love* Rash tore skin/blisters - Morphine Intolerance vomiting, shaking. - Nsaids (Non-Steroid* Vomiting - Vasotec [Enalapril * nausea/doesn't work OBJECTIVE: Physical Examination: Vitals: BP 149/70 (BP Site: Left Arm, BP Position: Sitting, BP Cuff Size: Large Adult) Pulse 82 Ht 152.4 cm (5') Wt 94.8 kg (209 lb) BMI 40.82 kg/m? General: Looks well, NAD, A AND Ox3. Neck: No LAD. No bruits. CVS: RRR, nl S1/S2, no R/M/G, Resp: CTAB. No rales or wheezing. Ext: No edema. Neuro: Gait Normal. Skin: No rash. No ulcers. Musculoskeletal: Shoulders: + impugnment bilateral, limited ROM bilateral Elbows: No swelling, no tenderness, no flexion contractures, no nodules, good ROM Wrists: No swelling, no tenderness, no limitation in flexion and extension Hands: + OA of multiple digits Knees: No effusion, no tenderness, good ROM Ankles: No swelling, no tenderness, good ROM Feet/Toes/ MTP: No evidence of synovitis PROCEDURE NOTE: Aspiration / Injection of: Joint Site(s): Number of Injections: 2 Location: shoulder(s): Bilateral If more than one (1) injection, a separate needle was used. Performed by: Chuck Hunter MD Verification of the identity of the patient was obtained by 2 means: Consent: The risks, benefits, alternatives and personnel present with regards to the procedure were next discussed with the patient. The site was marked as appropriate. An audible time-out was performed and documented here. Antiseptic preparation: betadine and alcohol Anesthesia (cutaneous): yes Topical skin refrigerant spray (pentafluropropane and tetrafluoroethane) Medication Injected:Joint/Bursa Site #1 Specify location left shoulder Kenalog 40 mg / Lidocaine 1% 1 cc Joint/Bursa Site #2 Specify location right shoulder Kenalog 40 mg / Lidocaine 1% 1 cc Fluid: No Medication wasted:no Complications: none observed Verbal instructions given. Patient left in satisfactory condition. Chuck Hunter MD ASSESSMENT/PLAN: 62 year old female with PMHx significant for sarcoidosis presenting with bilateral shoulder pain Gave injections to shoulders bilatear, hopefully will give her some relief. If this doesn't help with get x rays and physical therapy sarcoidosis this is stable no breathing difficulties. Will refill meds High risk medications-continue to monitor labs -Will call pt with results Chuck Hunter MD Rheumatology Staff [id number] CNOV Observed: 11/10/2017 Status: COMPLETED Source: [place] 12:40 PM [facility] [place] REPOSITORY Office Visit (BRIAN) RENAE ELIZONDO ([id number]) 1955 F Date Time Provider Department 11/10/17 12:40 PM CHUCK HUNTER During your visit today, we recorded the following information about you: Pulse Blood pressure Weight Height 82/minute 149/70 94.8 kg 1.524 m Chuck Hunter MD 11/10/2017 1:43 PM Signed [facility] Orthopaedic AND Rheumatologic [place] Department of Rheumatic and Immunologic Diseases SUBJECTIVE: . Brief History of Present Illness: 62 year old female is evaluated in the Rheumatology Clinic for sarcoidosis, osteoporosis and multiple complaints From Maryjane Bower's last visit: Prior Pertinent History Pulmonary sacroid-> Abnormal CT Chest with Multiple Scattered Nodules seen on the right lung on CT Chest September 16, 2014 Received steroids at that time. Complicated by -> Hx of poorly differentiated ductal carcinoma of the right breast diagnosed in January 2006?s/p Right Modified Radical mastectomy August 27, 2006 s/p neoadjuvant chemotherapy AND?RT to chest wall and axilla 12/01/06. ? ? Sacroid, (known prior). Arava was initiated 01/2016 jnt pain. + Plaquenil for the sacroid Left ankle- severe degenerative changes, considering surgery. Already had injection-> ?XR guided injection midfoot- needs surgery. ? Takes tylenol and celebrex for OA pain- DDD IMPRESSION: Degenerative osteoarthritis second and third DIP joints.- also with prior fusion. ? Bone health- Treatment prolia (not by Rheum), DXA ordered in 2016 (none prior) The prolia is given by her PCP.She had the DXA done last year by PCP and was told + osteoporosis. Takes a calcium supplement and Mag supplements. TODAY Shoulders and neck are bothering her quite a bit Later in the day aches more often Moving around neck and shoulder seem to make the pain worse Hands also stiff in the morning voltaran gel seems to help the kayla Takes celebrex once every 3 days But tears stomach up Has tried Nausea pills with the celbrex which helps a bit REVIEW OF SYSTEMS: November 10, 2017 CONSTITUTIONAL: Fever: No Fatigue: Yes Pain: Yes EYES: Pain: Yes Redness: No Loss of vision: No Dryness: Yes EAR, NOSE, MOUTH, THROAT: Nose bleeds: No Hearing loss: No Sores in mouth: No Swallowing problems: No Dry mouth: No CARDIOVASCULAR: Chest pain: No Swelling in the feet or legs: Yes RESPIRATORY: Shortness of breath: No Pain with breathing: No Chronic cough: No Coughing up blood: No , GASTROINTESTINAL: Heartburn: No Nausea: Yes Diarrhea: Yes Blood in the stool or black stool: No Abdominal pain: No GENITOURINARY: Blood in urine: No Pain or burning on urination: No] MUSCULOSKELETAL: Joint pain: Yes Joint swelling: Yes Morning stiffness in joints: Yes Muscle weakness: Yes Back pain: Yes SKIN: Rashes: No Sun sensitive rashes: Yes Color changes of hands or feet in the cold: Yes Hair loss: Yes Nail changes: Yes NEUROLOGICAL: Headaches: Yes Dizziness: Yes Numbness or tingling: Yes Memory loss: Yes Seizures: No HEMATOLOGIC/LYMPHATIC: Swollen glands: No Anemia: Yes ALLERGIES/IMMUNOLOGIC: Allergies (other than medications): Yes Increased susceptibility to infection: No KNOWN MEDICAL CONDITIONS: Diabetes: No Thyroid disease: Yes High blood pressure: No PMHx: PAST MEDICAL HISTORY Diagnosis Date - Anemia - Hypothyroidism - Malignant neoplasm of breast (female), unspecified site - Obstructive sleep apnea - Other and unspecified diseases of upper respiratory tract - RA (rheumatoid arthritis) (HCC) - S/P gastric bypass - Sarcoidosis (HCC) PSHx: PAST SURGICAL HISTORY Procedure Laterality Date - APPENDECTOMY 2000 Done with gastric bypass - COLONOSCOP W/ OR W/O BRSH SPEC 12/05/2008,12 Colonoscopy - FUSION FINGER JOINT Right 09/05/2017 Right index and middle fingers DIP joint fusion, Right 5th finger PIP joint fusion - GASTRIC BYPASS-MORBID OBESITY 2000 - MASTECTOMY, MODIFIED RADICAL 08/27/2006 Right MRM - PAST SURGICAL HISTORY OF 2000 venous ligation leg - PAST SURGICAL HISTORY OF Carpal Tunnel - PAST SURGICAL HISTORY OF Left thumb repair - PAST SURGICAL HISTORY OF port acath LEFT - PAST SURGICAL HISTORY OF removal of port - PAST SURGICAL HISTORY OF Left 01/2017 lt 2nd AND 3rd digit repair - OR ANESTH,REPAIR LO ABD HERNIA NOS - OR ANESTH,VAGINAL HYSTERECTOMY 2003 BSO - REMOVAL GALLBLADDER 1992 Cholecystectomy MEDICATIONS: diclofenac sodium (VOLTAREN) 1 % topical gel apply topically 4 grams to foot four times a day hydroxychloroquine (PLAQUENIL) 200 mg tablet TAKE ONE TABLET BY MOUTH TWICE DAILY leflunomide (ARAVA) 20 mg tablet Take 1 tablet by mouth once daily. cholecalciferol (VITAMIN D-3) 2,000 unit tablet Take 2,000 Units by mouth once daily. DENOSUMAB (PROLIA SUBCUTANEOUS) Inject subcutaneously once every 6 months. celecoxib (CELEBREX) 200 mg capsule Take 200 mg by mouth as needed. Magnesium Oxide 500 mg tab Taking 250mg. Take two tablets by mouth once daily. acetaminophen (TYLENOL EXTRA STRENGTH) 500 mg tablet Take 500 mg by mouth every 8 hours as needed. CPAP CHIN STRAP, USED WITH CPAP DEVICE fluticasone (FLONASE) 50 mcg/actuation nasal spray Use 1 [place] in each nostril daily at bedtime. ferrous sulfate 325 mg (65 mg iron) tablet Take 325 mg by mouth daily with breakfast. ascorbic acid (VITAMIN C) 500 mg tablet Take 500 mg by mouth three times daily. CPAP AutoPAP 10-20 cmH2O, suitable mask, humidity, filters. Lifetime supplies. Dx: 327.23. Fax compliance rpt to [phone] in 4-6 weeks. cyclobenzaprine (FLEXERIL) 10 mg tablet levothyroxine (LEVOTHROID) 50 mcg tablet Take 50 mcg by mouth daily before breakfast. CLOBETASOL 0.05 % cream as directed gabapentin 300 mg capsule Take 300 mg by mouth three times daily. PROMETHAZINE 25 MG TAB Take one(1) tablet every four(4) to six(6) hours as needed for nausea. lorazepam(ATIVAN 1 MG TAB) takes 1/2 tab as needed fentanyl 50 mcg/hr TRANSDERM. PT72 Apply as directed. Change patch every 3 days. B COMPLEX 1 TAB Take one(1) tablet daily. MULTIVITAMIN,TX-MINERALS TAB 1 tab daily ALLERGIES: ALLERGIES Allergen Reactions - Adhesive Tape (Love* Rash tore skin/blisters - Morphine Intolerance vomiting, shaking. - Nsaids (Non-Steroid* Vomiting - Vasotec [Enalapril * nausea/doesn't work OBJECTIVE: Physical Examination: Vitals: BP 149/70 (BP Site: Left Arm, BP Position: Sitting, BP Cuff Size: Large Adult) Pulse 82 Ht 152.4 cm (5') Wt 94.8 kg (209 lb) BMI 40.82 kg/m? General: Looks well, NAD, A AND Ox3. Neck: No LAD. No bruits. CVS: RRR, nl S1/S2, no R/M/G, Resp: CTAB. No rales or wheezing. Ext: No edema. Neuro: Gait Normal. Skin: No rash. No ulcers. Musculoskeletal: Shoulders: + impugnment bilateral, limited ROM bilateral Elbows: No swelling, no tenderness, no flexion contractures, no nodules, good ROM Wrists: No swelling, no tenderness, no limitation in flexion and extension Hands: + OA of multiple digits Knees: No effusion, no tenderness, good ROM Ankles: No swelling, no tenderness, good ROM Feet/Toes/ MTP: No evidence of synovitis PROCEDURE NOTE: Aspiration / Injection of: Joint Site(s): Number of Injections: 2 Location: shoulder(s): Bilateral If more than one (1) injection, a separate needle was used. Performed by: Chuck Hunter MD Verification of the identity of the patient was obtained by 2 means: Consent: The risks, benefits, alternatives and personnel present with regards to the procedure were next discussed with the patient. The site was marked as appropriate. An audible time-out was performed and documented here. Antiseptic preparation: betadine and alcohol Anesthesia (cutaneous): yes Topical skin refrigerant spray (pentafluropropane and tetrafluoroethane) Medication Injected:Joint/Bursa Site #1 Specify location left shoulder Kenalog 40 mg / Lidocaine 1% 1 cc Joint/Bursa Site #2 Specify location right shoulder Kenalog 40 mg / Lidocaine 1% 1 cc Fluid: No Medication wasted:no Complications: none observed Verbal instructions given. Patient left in satisfactory condition. Chuck Hunter MD ASSESSMENT/PLAN: 62 year old female with PMHx significant for sarcoidosis presenting with bilateral shoulder pain Gave injections to shoulders bilatear, hopefully will give her some relief. If this doesn't help with get x rays and physical therapy sarcoidosis this is stable no breathing difficulties. Will refill meds High risk medications-continue to monitor labs -Will call pt with results Chuck Hunter MD Rheumatology Staff [id number] Referring Provider: MARYJANE BOWER (CRYPTOLOGIC SUPERVISOR) [[id number]] Allergies As of Date: 11/10/2017 Noted Allergy Reaction ADHESIVE TAPE (ROSINS) 02/13/2006 2 - Rash Comments: tore skin/blisters MORPHINE 02/05/2006 5 - Intolerance Comments: vomiting, shaking. NSAIDS (NON-STEROIDAL ANTI-INFLAM*10/05/2014 11 - Vomiting VASOTEC (ENALAPRIL MALEATE) 09/08/2008 Comments: nausea/doesn't work Date Reviewed: 11/10/2017 Reviewed by: Milana Humphrey Ma - Fully Assessed Reason for Visit: Follow Up [171] Primary Visit Diagnosis:Rheumatoid arthritis of multiple sites with negative rheumatoid factor (HCC) [M06.09] Other Visit Diagnoses:Chronic pain of both shoulders [M25.511, G89.29, M25.512] High risk medication use [Z79.899] Order(s):hydroxychloroquine (PLAQUENIL) 200 mg tabletTake 1 tablet by mouth twice daily.Disp: 180 tabletRfl: 1 lidocaine-EPINEPHrine (PF) 1 mL, triamcinolone acetonide 40 mgDisp: Rfl: lidocaine-EPINEPHrine (PF) 1 mL, triamcinolone acetonide 40 mgDisp: Rfl: Prescriptions as of 11/10/2017 Sig: HYDROXYCHLOROQUINE 200 MG TAB* Take 1 tablet by mouth twice * DICLOFENAC 1 % TOPICAL GEL apply topically 4 grams to fo* LEFLUNOMIDE 20 MG TABLET Take 1 tablet by mouth once d* CHOLECALCIFEROL (VITAMIN D3) * Take 2,000 Units by mouth onc* PROLIA SUBCUTANEOUS Inject subcutaneously once e* CELECOXIB 200 MG CAPSULE Take 200 mg by mouth as neede* MAGNESIUM OXIDE 500 MG TABLET Taking 250mg. Take two tablet* ACETAMINOPHEN 500 MG TABLET Take 500 mg by mouth every 8 * CPAP CHIN STRAP, USED WITH CPAP DE* FLUTICASONE 50 MCG/ACTUATION * Use 1 [place] in each nostril d* FERROUS SULFATE 325 MG (65 MG* Take 325 mg by mouth daily wi* ASCORBIC ACID (VITAMIN C) 500* Take 500 mg by mouth three ti* CPAP AutoPAP 10-20 cmH2O, suitable* CYCLOBENZAPRINE 10 MG TABLET LEVOTHYROXINE 50 MCG TABLET Take 50 mcg by mouth daily be* CLOBETASOL 0.05 % TOPICAL CRE* as directed * GABAPENTIN 300 MG CAPSULE Take 300 mg by mouth three ti* * PROMETHAZINE 25 MG TABLET Take one(1) tablet every four* * ATIVAN 1 MG TABLET takes 1/2 tab as needed * FENTANYL 50 MCG/HR TRANSDERMA* Apply as directed. Change pat* * B COMPLEX 1 TABLET Take one(1) tablet daily. * MULTIVITAMIN,TX-MINERALS TABL* 1 tab daily Problem List As Of Date 11/10/2017 Noted Resolved LUMP OR MASS IN BREAST [N63.0] INVALID FOR* MALIG NEOPLASM BREAST-CENTRAL [C50.119] INVALID FOR* SEROMA, POST OP [[id number]] INVALID FOR*09/30/2016 ANEMIA NOS [D64.9] INVALID FOR* Sacroiliac joint pain [M53.3] INVALID FOR* Benign neoplasm of skin of trunk, except scrotu*INVALID FOR* HARRISON (obstructive sleep apnea) AHI 13, but with *INVALID FOR* More... RLS (restless legs syndrome) [G25.81] INVALID FOR* Low ferritin level [R79.0] INVALID FOR* Sarcoidosis (HCC) [D86.9] INVALID FOR* Nasal congestion, nocturnal. 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 Pain in finger of right hand [M79.644] INVALID FOR* More... 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 Obesity, Class III, BMI >= 40 [E66.01] INVALID FOR* Bilateral shoulder pain [M25.511, M25.512] INVALID FOR* Prescriptions ordered this encounter Disp Refills Start End HYDROXYCHLOROQUINE 200 MG TABLET 180 * 1 11/10/2017 Route: ORAL Sig: Take 1 tablet by mouth twice daily. [employer] 11/10/2017 11/10/2017 Class: Suppress Questions Route: IAtc [employer]DER 11/10/2017 11/10/2017 Class: Suppress Questions Route: IAtc Medications Discontinued During This Encounter hydroxychloroquine (PLAQUENIL) 200 m* 180 * 1 07/31/2017 11/10/2017 Sig: TAKE ONE TABLET BY MOUTH TWICE DAILY Disc: Reason for discontinue is not on file. Disposition: Return in about 3 months (around 02/09/2018). Follow-up and Disposition History Recorded Encounter Status:Closed by CHUCK HUNTER MD on 11/10/17 COMP METABOLIC PANEL Collected: 11/10/2017 Status: F Source: [place] 9:19 AM [facility] REPOSITORY TYPE CODE TESTS RESULT OUT OF REFERENCE UNITS RANGE LAB TP 6.3-8.0 g/dL Protein, Total 6.4 LAB ALB 3.9-4.9 g/dL Albumin 3.9 LAB CA 8.5-10.2 mg/dL Low Calcium, Total 8.4 LAB TBIL 0.2-1.3 mg/dL Bilirubin, Total 0.5 LAB ALKP 32-117 U/L Alkaline Phosphatase 67 LAB AST 13-35 U/L AST 24 LAB GLU 74-99 mg/dL Glucose 95 Result Comment: The [place] [employer] (ADA) provides guidance for cutoff values for fasting glucose and random glucose. The ADA defines fasting as no caloric intake for at least 8 hours. Fas ting plasma glucose results between 100 to 125 mg/dL indicate increased risk for diabetes (prediabetes). Fasting plasma glucose results greater than or equal to 126 mg/dL meet the criteria for diagnosis of diabetes. In the absence of unequivocal hyperglycemia, results should be confirmed by repeat testing. In a patient with classic symptoms of hyperglycemia or hyperglycemic crisis, random plasma glucose results greater than or equal to 200 mg/dL meet the criteria for diagnosis of diabetes. Reference: Standards of Medical Care in Diabetes 2016, [place] [employer]. Diabetes Care. 2016.39(Suppl 1). LAB BUN 7-21 mg/dL BUN 11 LAB CRET 0.58-0.96 mg/dL Creatinine 0.58 LAB NA 136-144 mmol/L Sodium 140 LAB K 3.7-5.1 mmol/L Potassium 4.4 LAB CL 97-105 mmol/L Chloride 102 LAB CO2 22-30 mmol/L CO2 26 LAB AGAP 9-18 mmol/L Anion Gap 12 LAB ALT 7-38 U/L ALT 16 LAB GFRAA eGFR- Amer. >60 LAB GFRNAA . eGFR-All Other Races >60 Result Comment: eGFR (Estimated GFR) Units of measure: mL/min/1.73 meters squared eGFR is derived from the reexpressed MDRD Study equation using the following parameters: serum creatinine, age, gender and race. The creatinine assay has been calibrated to be traceable to IDMS. An eGFR <60 mL/min/1.73m2 for >3 months is consistent with chronic kidney disease. Refer to KDOQI guidelines for clinical interpretation. In patients with unstable renal function, e.g. those with acute kidney injury, the eGFR may not accurately reflect actual GFR. Performed By: #### CMP, CBC #### [facility] [address] [place], [place] [address] CBC Collected: 11/10/2017 Status: F Source: [place] 9:19 AM [facility] REPOSITORY TYPE CODE TESTS RESULT OUT OF REFERENCE UNITS RANGE LAB WBC 3.70-11.00 k/uL Low WBC 3.66 LAB RBC 3.90-5.20 m/uL RBC 4.06 LAB HGB 11.5-15.5 g/dL Hemoglobin 12.5 LAB HCT 36.0-46.0 % Hematocrit 40.4 LAB MCV 80.0-100.0 fL MCV 99.5 LAB MCH 26.0-34.0 pG MCH 30.8 LAB MCHC 30.5-36.0 g/dL MCHC 30.9 LAB RDWCV 11.5-15.0 % RDW-CV 12.7 LAB PLTCT 150-400 k/uL Platelet Count 218 LAB MPV 9.0-12.7 fL MPV 9.7 LAB ABSNUC <0.01 k/uL Absolute nRBC <0.01 Performed By: #### CMP, CBC #### [facility] [address] [place], [place] [address] PROGRESS Observed: 10/31/2017 Status: COMPLETED Source: [place] 10:23 AM [facility] MAIN [place] REPOSITORY HNO ID: [id number] Author: Kat (Pt) Yoan Service: (none) Author Type: Physical Therapist Type: Progress Notes Filed: 10/31/2017 2:14 PM Note Text: Episode Visit Count: 26 Therapist That Will Oversee The Plan Of Care: Kat Milton Start of Care Date: 07/14/17 Onset Date: 02/17/17 Patient Identified by Name and Date of : Yes REHABILITATION AND SPORTS THERAPY PHYSICAL THERAPY TREATMENT NOTE ASSESSMENT: Renae Elizondo demonstrated improvements in gait pattern and weight bearing activity tolerance. The patient will continue to benefit from continued skilled physical therapy for L LE strengthening, AROM and gait instruct. PLAN FOR NEXT VISIT: Cotninue to progres with weight bearing activities. SUBJECTIVE: Pt states she has been walking more with the shoe. She still uses her walker when out of the house, but tries to just use the cane when indoors. Pain Score: 6/10 Pain Location: Ankle - Left Description: Aching Post Treatment Pain Score: 7/10 Pain Location: Foot - Left OBJECTIVE MEASURES WITH LEVEL OF FUNCTION: Gait Gait Observation: Pt demonstrates more smooth gait pattern with quad cane, including improved heel strike to toe off of L foot and more symmetrical wieght bearing with decresaed lateral trunk deviation. TREATMENT: Therapeutic Exercise: 1: Left towel toe scrunches 2x20. 2: Standing BAPS PWB left ball 2 and pegs, A/P, lateral and cw and ccw 2x10 each. 3: stationary balancing on foam square in parallel bars working on symmetrical weight bearing and L ankle balance reactions Skilled Intervention: Patient was educated in proper exercise technique and purpose for exercises. Reviewed and educated patient on additions/changes for home exercise program and pt to continue current HEP. Skilled judgment was provided in selection of appropriate interventions. Correct performance of therapeutic exercises was facilitated with verbal and visual cuing. Patient education as noted. Gait Trainin: Gait with shoes and quad cane x 120 ft and x 40 ft 2: Side stepping in // bars back and forth each direction. Pt demonstrated decreased gait luis miguel as she tired towards end of session, but remained improved with form and gait pattern. Skilled Intervention: Patient was provided stand by assist, supervision during pre-gait/gait training to prevent falls and insure safety. Facilitated proper gait cycle with the use of verbal and visual cues for correction of gait deviations identified in the objective section above. Billing: [facility]: Therapeutic Exercise (33144): 1:1 time: 25 minutes (2 units: 23-37 mins) Gait Training (36495): 1:1 time: 18 minutes (1 unit: 8-22 mins) Total time: 43 minutes Kat Milton PT CNTHERAPY Observed: 10/31/2017 Status: COMPLETED Source: [place] 10:15 AM [facility] REPOSITORY OT/PT/Speech Visit (PTWS) RENAE ELIZONDO ([id number]) 1955 F Date Time Provider Department 10/31/17 10:15 AM KAT MILTON (PT) PTWS Date Time Provider Department Center 10/31/2017 10:15 AM [id number] MILTON (PT) PTWS [facility] Reason for Visit: Physical Therapy [503] Primary Visit Diagnosis:Arthritis, midfoot [M19.079] Allergies As of Date: 10/31/2017 Noted Allergy Reaction ADHESIVE TAPE (ROSINS) 02/13/2006 2 - Rash Comments: tore skin/blisters MORPHINE 02/05/2006 5 - Intolerance Comments: vomiting, shaking. NSAIDS (NON-STEROIDAL ANTI-INFLAM*10/05/2014 11 - Vomiting VASOTEC (ENALAPRIL MALEATE) 09/08/2008 Comments: nausea/doesn't work Date Reviewed: 10/27/2017 Reviewed by: Corinna Thompson Ma - Fully Assessed Prescriptions as of 10/31/2017 Sig: DICLOFENAC 1 % TOPICAL GEL apply topically 4 grams to fo* HYDROXYCHLOROQUINE 200 MG TAB* TAKE ONE TABLET BY MOUTH TWIC* LEFLUNOMIDE 20 MG TABLET Take 1 tablet by mouth once d* CHOLECALCIFEROL (VITAMIN D3) * Take 2,000 Units by mouth onc* PROLIA SUBCUTANEOUS Inject subcutaneously once e* CELECOXIB 200 MG CAPSULE Take 200 mg by mouth as neede* MAGNESIUM OXIDE 500 MG TABLET Taking 250mg. Take two tablet* ACETAMINOPHEN 500 MG TABLET Take 500 mg by mouth every 8 * CPAP CHIN STRAP, USED WITH CPAP DE* FLUTICASONE 50 MCG/ACTUATION * Use 1 [place] in each nostril d* FERROUS SULFATE 325 MG (65 MG* Take 325 mg by mouth daily wi* ASCORBIC ACID (VITAMIN C) 500* Take 500 mg by mouth three ti* CPAP AutoPAP 10-20 cmH2O, suitable* CYCLOBENZAPRINE 10 MG TABLET LEVOTHYROXINE 50 MCG TABLET Take 50 mcg by mouth daily be* CLOBETASOL 0.05 % TOPICAL CRE* as directed * GABAPENTIN 300 MG CAPSULE Take 300 mg by mouth three ti* * PROMETHAZINE 25 MG TABLET Take one(1) tablet every four* * ATIVAN 1 MG TABLET takes 1/2 tab as needed * FENTANYL 50 MCG/HR TRANSDERMA* Apply as directed. Change pat* * B COMPLEX 1 TABLET Take one(1) tablet daily. * MULTIVITAMIN,TX-MINERALS TABL* 1 tab daily Progress Notes: Kat Milton PT 10/31/2017 2:14 PM Signed Episode Visit Count: 26 Therapist That Will Oversee The Plan Of Care: Kat Milton Start of Care Date: 07/14/17 Onset Date: 02/17/17 Patient Identified by Name and Date of : Yes REHABILITATION AND SPORTS THERAPY PHYSICAL THERAPY TREATMENT NOTE ASSESSMENT: Renae Elizondo demonstrated improvements in gait pattern and weight bearing activity tolerance. The patient will continue to benefit from continued skilled physical therapy for L LE strengthening, AROM and gait instruct. PLAN FOR NEXT VISIT: Martha to catie with weight bearing activities. SUBJECTIVE: Pt states she has been walking more with the shoe. She still uses her walker when out of the house, but tries to just use the cane when indoors. Pain Score: 6/10 Pain Location: Ankle - Left Description: Aching Post Treatment Pain Score: 7/10 Pain Location: Foot - Left OBJECTIVE MEASURES WITH LEVEL OF FUNCTION: Gait Gait Observation: Pt demonstrates more smooth gait pattern with quad cane, including improved heel strike to toe off of L foot and more symmetrical wieght bearing with decresaed lateral trunk deviation. TREATMENT: Therapeutic Exercise: 1: Left towel toe scrunches 2x20. 2: Standing BAPS PWB left ball 2 and pegs, A/P, lateral and cw and ccw 2x10 each. 3: stationary balancing on foam square in parallel bars working on symmetrical weight bearing and L ankle balance reactions Skilled Intervention: Patient was educated in proper exercise technique and purpose for exercises. Reviewed and educated patient on additions/changes for home exercise program and pt to continue current HEP. Skilled judgment was provided in selection of appropriate interventions. Correct performance of therapeutic exercises was facilitated with verbal and visual cuing. Patient education as noted. Gait Trainin: Gait with shoes and quad cane x 120 ft and x 40 ft 2: Side stepping in // bars back and forth each direction. Pt demonstrated decreased gait luis miguel as she tired towards end of session, but remained improved with form and gait pattern. Skilled Intervention: Patient was provided stand by assist, supervision during pre-gait/gait training to prevent falls and insure safety. Facilitated proper gait cycle with the use of verbal and visual cues for correction of gait deviations identified in the objective section above. Billing: [facility]: Therapeutic Exercise ([id number]): 1:1 time: 25 minutes (2 units: 23-37 mins) Gait Training (47970): 1:1 time: 18 minutes (1 unit: 8-22 mins) Total time: 43 minutes Kat Milton PT PROGRESS Observed: 10/27/2017 Status: COMPLETED Source: [place] 9:25 AM [facility] REPOSITORY HNO ID: [id number] Author: Brandon Macias Service: (none) Author Type: Physician Type: Progress Notes Filed: 10/27/2017 12:42 PM Note Text: ? Brandon Macias DPM Department of Podiatry [address] [facility] [address] Dept: [phone] Dept 10/27/2017 Podiatric Office Visit: HPI: Renae Elizondo is a 62 year old female. Patient presents for L foot follow up. Patient underwent L talonavicular arthrodesis with achilles lengthening with iliac crest bone graft in 02/17/[address] De Leon. She is having constant 5/10 achy pain that is worsened with prolonged use/standing. States that pain sometimes wakes her up at night. Notes swelling to LLE that worsens throughout the day. She is unable to wear compression stockings d/t too tight below knee and thigh highs do not stay up. She wears her boot whenever she has distance walking. She is in physical therapy. She has upcoming appointment with Rheumatology on 11/10/17 at [facility]. Brandon Macias DPM PCP: Elisa Baxter MD PAST MEDICAL HISTORY Diagnosis Date - Anemia - Hypothyroidism - Malignant neoplasm of breast (female), unspecified site - Obstructive sleep apnea - Other and unspecified diseases of upper respiratory tract - RA (rheumatoid arthritis) ([facility]) - S/P gastric bypass - Sarcoidosis ([facility]) Current Outpatient Prescriptions: diclofenac sodium (VOLTAREN) 1 % topical gel apply topically 4 grams to foot four times a day hydroxychloroquine (PLAQUENIL) 200 mg tablet TAKE ONE TABLET BY MOUTH TWICE DAILY leflunomide (ARAVA) 20 mg tablet Take 1 tablet by mouth once daily. cholecalciferol (VITAMIN D-3) 2,000 unit tablet Take 2,000 Units by mouth once daily. DENOSUMAB (PROLIA SUBCUTANEOUS) Inject subcutaneously once every 6 months. celecoxib (CELEBREX) 200 mg capsule Take 200 mg by mouth as needed. Magnesium Oxide 500 mg tab Taking 250mg. Take two tablets by mouth once daily. acetaminophen (TYLENOL EXTRA STRENGTH) 500 mg tablet Take 500 mg by mouth every 8 hours as needed. CPAP CHIN STRAP, USED WITH CPAP DEVICE fluticasone (FLONASE) 50 mcg/actuation nasal spray Use 1 [place] in each nostril daily at bedtime. ferrous sulfate 325 mg (65 mg iron) tablet Take 325 mg by mouth daily with breakfast. ascorbic acid (VITAMIN C) 500 mg tablet Take 500 mg by mouth three times daily. CPAP AutoPAP 10-20 cmH2O, suitable mask, humidity, filters. Lifetime supplies. Dx: 327.23. Fax compliance rpt to [phone] in 4-6 weeks. cyclobenzaprine (FLEXERIL) 10 mg tablet levothyroxine (LEVOTHROID) 50 mcg tablet Take 50 mcg by mouth daily before breakfast. CLOBETASOL 0.05 % cream as directed gabapentin 300 mg capsule Take 300 mg by mouth three times daily. PROMETHAZINE 25 MG TAB Take one(1) tablet every four(4) to six(6) hours as needed for nausea. lorazepam(ATIVAN 1 MG TAB) takes 1/2 tab as needed fentanyl 50 mcg/hr TRANSDERM. PT72 Apply as directed. Change patch every 3 days. B COMPLEX 1 TAB Take one(1) tablet daily. MULTIVITAMIN,TX-MINERALS TAB 1 tab daily No current facility-administered medications for this visit. ALLERGIES Allergen Reactions - Adhesive Tape (Love* Rash tore skin/blisters - Morphine Intolerance vomiting, shaking. - Nsaids (Non-Steroid* Vomiting - Vasotec [Enalapril * nausea/doesn't work PAST SURGICAL HISTORY Procedure Laterality Date - APPENDECTOMY 2000 Done with gastric bypass - COLONOSCOP W/ OR W/O [facility] SPEC 12/05/2008,12 Colonoscopy - FUSION FINGER JOINT Right 09/05/2017 Right index and middle fingers DIP joint fusion, Right 5th finger PIP joint fusion - GASTRIC BYPASS-MORBID OBESITY 2000 - MASTECTOMY, MODIFIED RADICAL 08/27/2006 Right MRM - PAST SURGICAL HISTORY OF 2000 venous ligation leg - PAST SURGICAL HISTORY OF Carpal Tunnel - PAST SURGICAL HISTORY OF Left thumb repair - PAST SURGICAL HISTORY OF port acath LEFT - PAST SURGICAL HISTORY OF removal of port - PAST SURGICAL HISTORY OF Left 01/2017 lt 2nd AND 3rd digit repair - OR ANESTH,REPAIR LO ABD HERNIA NOS - OR ANESTH,VAGINAL HYSTERECTOMY 2003 BSO - REMOVAL GALLBLADDER 1993 Cholecystectomy FAMILY HISTORY Problem Relation Age of Onset - Diabetes Mother - Colon Cancer Mother pancreatic cancer - Cancer Mother pancreatic - Colon Cancer Father at age 75 or 76 - Cancer Father - other (Parkinson's disease) Father - Diabetes Brother - Diabetes Paternal Grandmother - Diabetes Maternal Grandmother - Ischemic Heart Disease Maternal Grandfather - Hypertension Sister - Hypertension Brother - Stroke Paternal Grandfather - Allergies Sister - Allergies Brother - Cancer Sister uterine/ lung/ liver - Cancer Brother melanoma/ brain/ tongue Social History Marital status: Spouse name: Years of education: Number of children: Social History Main Topics Smoking status: Never Smoker Smokeless tobacco: Never Used Alcohol use: Yes Comment: occasionally glass wine or mixed drink Drug use: No Sexual activity: Yes Partners with: Male REVIEW OF SYSTEMS: CONSTITUTIONAL: No fevers, chills, nightsweats, unintended weight loss HEENT: Denies frequent or severe heaches, nasal congestion/sinus symptoms, problematic allergy problems. EYES: No diplopia or blurry vision. CARDIOVASCULAR: No chest pain, dyspnea, palpitations, orthopnea, PND, ankle edema. PULM: No dyspnea, unexplained cough. GI: No dysphagia/odynophagia, problematic reflux, constipation, diarrhea, changes in stool habits, hematochezia, melena. : No new urinary complaints, including dysuria, gross hematuria or pyuria. NEURO: No new balance problems, peripheral weakness/paresthesias or numbness of concern. MUSC-SKEL: No new joint pain, swelling, or erythema. PSY: No concerns regarding depression, anxiety or panic. INTEGUMENTARY: No new skin changes (rash, new or changing mole, new growth) Physical Exam: Constitutional: Pt is a well developed 62 year old female who is alert, oriented and cooperative Eyes: Following during examination. No redness or drainage. Respiratory: RR normal and nonlabored. Even breathing. No evidence of distress or shortness of breath. Psychology: Patient is engaged during conversation. Normal affect and mood. Does not appear depressed or anxious during encounter. Vascular: Dorsalis pedis and posterior tibial pulses palpable left Capillary Fill time < 5 seconds to digits 1-5 left Skin temperature warm to warm proximal to distal left Hair growth present to digits Neurological: intact light touch/epicritic sensation Dermatological: Nails 1-5 left appear Normal. Webspaces clean and dry 1-4 left. Skin appears well hydrated and supple. good color, texture, turgor. Callosities absent.Open lesions absent. Wound: Not present. Musculoskeletal/Orthopaedic: Patient has pain to palpation of left midfoot and left ankle Foot type is neutral structurally AJ ROM is decreased with knee extended and flexed 1st MPJ is decreased when loaded and no pain or crepitus are noted with ROM. MTJ, STJ are full and free of pain and crepitus. +5/5 muscle strength dorsiflexion, plantarflexion, inversion, eversion b/l Radiographs: 3 views of past xray show fused tn joint with stable hardware noted ASSESSMENT: (M19.072) Arthritis of left foot (primary encounter diagnosis) (M79.672) Pain in left foot PLAN: Patient was examined and informed of current findings She has successful arthrodesis of left tn joint. Suspect pain currently related to arthritis. Continue with current transition out of boot as recommended by Dr. De Leon Continue with custom insoles Patient has appointment with rheumatology next month F/u prn. Brandon Macias DPM CNOV Observed: 10/27/2017 Status: COMPLETED Source: [place] 8:55 AM [facility] REPOSITORY Office Visit (PODIWS) RENAE ELIZONDO ([id number]) 1955 F Date Time Provider Department 10/27/17 8:55 AM BRANDON MACIAS PODKRYSTAL During your visit today, we recorded the following information about you: Brandon Macias DPM 10/27/2017 12:42 PM Signed ? Brandon Macias DPM Department of Podiatry [address] [facility] [address] Dept: [phone] Dept 10/27/2017 Podiatric Office Visit: HPI: Renae Elizondo is a 62 year old female. Patient presents for L foot follow up. Patient underwent L talonavicular arthrodesis with achilles lengthening with iliac crest bone graft in 02/17/[address] De Leon. She is having constant 5/10 achy pain that is worsened with prolonged use/standing. States that pain sometimes wakes her up at night. Notes swelling to LLE that worsens throughout the day. She is unable to wear compression stockings d/t too tight below knee and thigh highs do not stay up. She wears her boot whenever she has distance walking. She is in physical therapy. She has upcoming appointment with Rheumatology on 11/10/17 at [facility]. Brandon Macias DPM PCP: Elisa Baxter MD PAST MEDICAL HISTORY Diagnosis Date - Anemia - Hypothyroidism - Malignant neoplasm of breast (female), unspecified site - Obstructive sleep apnea - Other and unspecified diseases of upper respiratory tract - RA (rheumatoid arthritis) ([facility]) - S/P gastric bypass - Sarcoidosis ([facility]) Current Outpatient Prescriptions: diclofenac sodium (VOLTAREN) 1 % topical gel apply topically 4 grams to foot four times a day hydroxychloroquine (PLAQUENIL) 200 mg tablet TAKE ONE TABLET BY MOUTH TWICE DAILY leflunomide (ARAVA) 20 mg tablet Take 1 tablet by mouth once daily. cholecalciferol (VITAMIN D-3) 2,000 unit tablet Take 2,000 Units by mouth once daily. DENOSUMAB (PROLIA SUBCUTANEOUS) Inject subcutaneously once every 6 months. celecoxib (CELEBREX) 200 mg capsule Take 200 mg by mouth as needed. Magnesium Oxide 500 mg tab Taking 250mg. Take two tablets by mouth once daily. acetaminophen (TYLENOL EXTRA STRENGTH) 500 mg tablet Take 500 mg by mouth every 8 hours as needed. CPAP CHIN STRAP, USED WITH CPAP DEVICE fluticasone (FLONASE) 50 mcg/actuation nasal spray Use 1 [place] in each nostril daily at bedtime. ferrous sulfate 325 mg (65 mg iron) tablet Take 325 mg by mouth daily with breakfast. ascorbic acid (VITAMIN C) 500 mg tablet Take 500 mg by mouth three times daily. CPAP AutoPAP 10-20 cmH2O, suitable mask, humidity, filters. Lifetime supplies. Dx: 327.23. Fax compliance rpt to [phone] in 4-6 weeks. cyclobenzaprine (FLEXERIL) 10 mg tablet levothyroxine (LEVOTHROID) 50 mcg tablet Take 50 mcg by mouth daily before breakfast. CLOBETASOL 0.05 % cream as directed gabapentin 300 mg capsule Take 300 mg by mouth three times daily. PROMETHAZINE 25 MG TAB Take one(1) tablet every four(4) to six(6) hours as needed for nausea. lorazepam(ATIVAN 1 MG TAB) takes 1/2 tab as needed fentanyl 50 mcg/hr TRANSDERM. PT72 Apply as directed. Change patch every 3 days. B COMPLEX 1 TAB Take one(1) tablet daily. MULTIVITAMIN,TX-MINERALS TAB 1 tab daily No current facility-administered medications for this visit. ALLERGIES Allergen Reactions - Adhesive Tape (Love* Rash tore skin/blisters - Morphine Intolerance vomiting, shaking. - Nsaids (Non-Steroid* Vomiting - Vasotec [Enalapril * nausea/doesn't work PAST SURGICAL HISTORY Procedure Laterality Date - APPENDECTOMY 2000 Done with gastric bypass - COLONOSCOP W/ OR W/O [facility] SPEC 12/05/2008,12 Colonoscopy - FUSION FINGER JOINT Right 09/05/2017 Right index and middle fingers DIP joint fusion, Right 5th finger PIP joint fusion - GASTRIC BYPASS-MORBID OBESITY 2000 - MASTECTOMY, MODIFIED RADICAL 08/27/2006 Right MRM - PAST SURGICAL HISTORY OF 2000 venous ligation leg - PAST SURGICAL HISTORY OF Carpal Tunnel - PAST SURGICAL HISTORY OF Left thumb repair - PAST SURGICAL HISTORY OF port acath LEFT - PAST SURGICAL HISTORY OF removal of port - PAST SURGICAL HISTORY OF Left 01/2017 lt 2nd AND 3rd digit repair - OR ANESTH,REPAIR LO ABD HERNIA NOS - OR ANESTH,VAGINAL HYSTERECTOMY 2003 BSO - REMOVAL GALLBLADDER 1993 Cholecystectomy FAMILY HISTORY Problem Relation Age of Onset - Diabetes Mother - Colon Cancer Mother pancreatic cancer - Cancer Mother pancreatic - Colon Cancer Father at age 75 or 76 - Cancer Father - other (Parkinson's disease) Father - Diabetes Brother - Diabetes Paternal Grandmother - Diabetes Maternal Grandmother - Ischemic Heart Disease Maternal Grandfather - Hypertension Sister - Hypertension Brother - Stroke Paternal Grandfather - Allergies Sister - Allergies Brother - Cancer Sister uterine/ lung/ liver - Cancer Brother melanoma/ brain/ tongue Social History Marital status: Spouse name: Years of education: Number of children: Social History Main Topics Smoking status: Never Smoker Smokeless tobacco: Never Used Alcohol use: Yes Comment: occasionally glass wine or mixed drink Drug use: No Sexual activity: Yes Partners with: Male REVIEW OF SYSTEMS: CONSTITUTIONAL: No fevers, chills, nightsweats, unintended weight loss HEENT: Denies frequent or severe heaches, nasal congestion/sinus symptoms, problematic allergy problems. EYES: No diplopia or blurry vision. CARDIOVASCULAR: No chest pain, dyspnea, palpitations, orthopnea, PND, ankle edema. PULM: No dyspnea, unexplained cough. GI: No dysphagia/odynophagia, problematic reflux, constipation, diarrhea, changes in stool habits, hematochezia, melena. : No new urinary complaints, including dysuria, gross hematuria or pyuria. NEURO: No new balance problems, peripheral weakness/paresthesias or numbness of concern. MUSC-SKEL: No new joint pain, swelling, or erythema. PSY: No concerns regarding depression, anxiety or panic. INTEGUMENTARY: No new skin changes (rash, new or changing mole, new growth) Physical Exam: Constitutional: Pt is a well developed 62 year old female who is alert, oriented and cooperative Eyes: Following during examination. No redness or drainage. Respiratory: RR normal and nonlabored. Even breathing. No evidence of distress or shortness of breath. Psychology: Patient is engaged during conversation. Normal affect and mood. Does not appear depressed or anxious during encounter. Vascular: Dorsalis pedis and posterior tibial pulses palpable left Capillary Fill time < 5 seconds to digits 1-5 left Skin temperature warm to warm proximal to distal left Hair growth present to digits Neurological: intact light touch/epicritic sensation Dermatological: Nails 1-5 left appear Normal. Webspaces clean and dry 1-4 left. Skin appears well hydrated and supple. good color, texture, turgor. Callosities absent.Open lesions absent. Wound: Not present. Musculoskeletal/Orthopaedic: Patient has pain to palpation of left midfoot and left ankle Foot type is neutral structurally AJ ROM is decreased with knee extended and flexed 1st MPJ is decreased when loaded and no pain or crepitus are noted with ROM. MTJ, STJ are full and free of pain and crepitus. +5/5 muscle strength dorsiflexion, plantarflexion, inversion, eversion b/l Radiographs: 3 views of past xray show fused tn joint with stable hardware noted ASSESSMENT: (M19.072) Arthritis of left foot (primary encounter diagnosis) (M79.672) Pain in left foot PLAN: Patient was examined and informed of current findings She has successful arthrodesis of left tn joint. Suspect pain currently related to arthritis. Continue with current transition out of boot as recommended by Dr. De Leon Continue with custom insoles Patient has appointment with rheumatology next month F/u prn. Brandon Macias DPM Referring Provider: SELF [200] Allergies As of Date: 10/27/2017 Noted Allergy Reaction ADHESIVE TAPE (ROSINS) 02/13/2006 2 - Rash Comments: tore skin/blisters MORPHINE 02/05/2006 5 - Intolerance Comments: vomiting, shaking. NSAIDS (NON-STEROIDAL ANTI-INFLAM*10/05/2014 11 - Vomiting VASOTEC (ENALAPRIL MALEATE) 09/08/2008 Comments: nausea/doesn't work Date Reviewed: 10/27/2017 Reviewed by: Corinna Thompson Ma - Fully Assessed Reason for Visit: Follow Up [171] Primary Visit Diagnosis:Arthritis of left foot [M19.072] Other Visit Diagnosis:Pain in left foot [M79.672] Prescriptions as of 10/27/2017 Sig: DICLOFENAC 1 % TOPICAL GEL apply topically 4 grams to fo* HYDROXYCHLOROQUINE 200 MG TAB* TAKE ONE TABLET BY MOUTH TWIC* LEFLUNOMIDE 20 MG TABLET Take 1 tablet by mouth once d* CHOLECALCIFEROL (VITAMIN D3) * Take 2,000 Units by mouth onc* PROLIA SUBCUTANEOUS Inject subcutaneously once e* CELECOXIB 200 MG CAPSULE Take 200 mg by mouth as neede* MAGNESIUM OXIDE 500 MG TABLET Taking 250mg. Take two tablet* ACETAMINOPHEN 500 MG TABLET Take 500 mg by mouth every 8 * CPAP CHIN STRAP, USED WITH CPAP DE* FLUTICASONE 50 MCG/ACTUATION * Use 1 [place] in each nostril d* FERROUS SULFATE 325 MG (65 MG* Take 325 mg by mouth daily wi* ASCORBIC ACID (VITAMIN C) 500* Take 500 mg by mouth three ti* CPAP AutoPAP 10-20 cmH2O, suitable* CYCLOBENZAPRINE 10 MG TABLET LEVOTHYROXINE 50 MCG TABLET Take 50 mcg by mouth daily be* CLOBETASOL 0.05 % TOPICAL CRE* as directed * GABAPENTIN 300 MG CAPSULE Take 300 mg by mouth three ti* * PROMETHAZINE 25 MG TABLET Take one(1) tablet every four* * ATIVAN 1 MG TABLET takes 1/2 tab as needed * FENTANYL 50 MCG/HR TRANSDERMA* Apply as directed. Change pat* * B COMPLEX 1 TABLET Take one(1) tablet daily. * MULTIVITAMIN,TX-MINERALS TABL* 1 tab daily Problem List As Of Date 10/27/2017 Noted Resolved LUMP OR MASS IN BREAST [N63.0] INVALID FOR* MALIG NEOPLASM BREAST-CENTRAL [C50.119] INVALID FOR* SEROMA, POST OP [EKK1701] INVALID FOR*09/30/2016 ANEMIA NOS [D64.9] INVALID FOR* Sacroiliac joint pain [M53.3] INVALID FOR* Benign neoplasm of skin of trunk, except scrotu*INVALID FOR* HARRISON (obstructive sleep apnea) AHI 13, but with *INVALID FOR* More... RLS (restless legs syndrome) [G25.81] INVALID FOR* Low ferritin level [R79.0] INVALID FOR* Sarcoidosis (HCC) [D86.9] INVALID FOR* Nasal congestion, nocturnal. 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 Pain in finger of right hand [M79.644] INVALID FOR* More... 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 Obesity, Class III, BMI >= 40 [E66.01] INVALID FOR* Encounter Status:Closed by BRANDON MACIAS DPM on 10/27/17 PROGRESS Observed: 10/24/2017 Status: COMPLETED Source: [place] 9:47 AM [facility] REPOSITORY O ID: [id number] Author: Kat (Pt) Yoan Service: (none) Author Type: Physical Therapist Type: Progress Notes Filed: 10/24/2017 12:19 PM Note Text: Episode Visit Count: 25 Therapist That Will Oversee The Plan Of Care: Kat Milton Start of Care Date: 07/14/17 Onset Date: 02/17/17 Patient Identified by Name and Date of : Yes REHABILITATION AND SPORTS THERAPY PHYSICAL THERAPY TREATMENT NOTE ASSESSMENT: Renae Elizondo demonstrated improvements in progression of BAPS board activity, but increased tightness and pain overall. Since pt forgot her shoe today worked more on manual techniques and did not progress gait. The patient will continue to benefit from continued skilled physical therapy for L ankle AROM, strength, edema control and gait. PLAN FOR NEXT VISIT: Progress weight bearing activities per symptom tolerance. SUBJECTIVE: Pt states she is feeling achy all over today. Notes last night her ankle was throbbing. States she has been trying to walk more this week. Pain Score: 7/10 Pain Location: Ankle - Left Description: Aching Post Treatment Pain Score: 6/10 Pain Location: Foot - Left OBJECTIVE MEASURES WITH LEVEL OF FUNCTION: LE AROM L Ankle Plantar Flexion: 42 Degrees TREATMENT: Therapeutic Exercise: 1: Left towel toe scrunches 2x20. 2: Seated BAPS PWB left ball 2 and pegs, A/P, lateral and cw and ccw 2x10 each. and 1 x 5 extra CW. 3: Seated BAPS PWB left ball 2 and pegs, one wt plate at posterior post x 20 reps, then one wt plate at ant-lat post x 10 reps Skilled Intervention: Patient was educated in proper exercise technique and purpose for exercises. Reviewed and educated patient on additions/changes for home exercise program as above (*) Skilled judgment was provided in selection of appropriate interventions. Correct performance of therapeutic exercises was facilitated with verbal and visual cuing. Patient education as noted. Manual Therapy: 1: Retrograde massage including MLD left foot to knee x 10 minutes. Skilled Intervention: Manual skills to improve joint mobility, ROM, and decrease pain. Utilized anatomy knowledge of the therapist, and assessment of patient's response to intervention. Billing: [facility]: Therapeutic Exercise ([id number]): 1:1 time: 30 minutes (2 units: 23-37 mins) Manual Therapy ([id number]): 1:1 time: 10 minutes (1 unit: 8-22 mins) Total time: 40 minutes Kat Milton PT CNTHERAPY Observed: 10/24/2017 Status: COMPLETED Source: [place] 9:30 AM [facility] [place] REPOSITORY OT/PT/Speech Visit (PTWS) RENAE ELIZONDO ([id number]) 1955 F Date Time Provider Department 10/24/17 9:30 AM KAT MILTON (PT) PTWS Date Time Provider Department Center 10/24/2017 9:30 AM [id number] MILTON (PT) PTWS [facility] Reason for Visit: Physical Therapy [503] Primary Visit Diagnosis:Arthritis, midfoot [M19.079] Allergies As of Date: 10/24/2017 Noted Allergy Reaction ADHESIVE TAPE (ROSINS) 02/13/2006 2 - Rash Comments: tore skin/blisters MORPHINE 02/05/2006 5 - Intolerance Comments: vomiting, shaking. NSAIDS (NON-STEROIDAL ANTI-INFLAM*10/05/2014 11 - Vomiting VASOTEC (ENALAPRIL MALEATE) 09/08/2008 Comments: nausea/doesn't work Date Reviewed: 10/16/2017 Reviewed by: Jorge Martinez - Fully Assessed Prescriptions as of 10/24/2017 Sig: DICLOFENAC 1 % TOPICAL GEL apply topically 4 grams to fo* HYDROXYCHLOROQUINE 200 MG TAB* TAKE ONE TABLET BY MOUTH TWIC* LEFLUNOMIDE 20 MG TABLET Take 1 tablet by mouth once d* CHOLECALCIFEROL (VITAMIN D3) * Take 2,000 Units by mouth onc* PROLIA SUBCUTANEOUS Inject subcutaneously once e* CELECOXIB 200 MG CAPSULE Take 200 mg by mouth as neede* MAGNESIUM OXIDE 500 MG TABLET Taking 250mg. Take two tablet* ACETAMINOPHEN 500 MG TABLET Take 500 mg by mouth every 8 * CPAP CHIN STRAP, USED WITH CPAP DE* FLUTICASONE 50 MCG/ACTUATION * Use 1 [place] in each nostril d* FERROUS SULFATE 325 MG (65 MG* Take 325 mg by mouth daily wi* ASCORBIC ACID (VITAMIN C) 500* Take 500 mg by mouth three ti* CPAP AutoPAP 10-20 cmH2O, suitable* CYCLOBENZAPRINE 10 MG TABLET LEVOTHYROXINE 50 MCG TABLET Take 50 mcg by mouth daily be* CLOBETASOL 0.05 % TOPICAL CRE* as directed * GABAPENTIN 300 MG CAPSULE Take 300 mg by mouth three ti* * PROMETHAZINE 25 MG TABLET Take one(1) tablet every four* * ATIVAN 1 MG TABLET takes 1/2 tab as needed * FENTANYL 50 MCG/HR TRANSDERMA* Apply as directed. Change pat* * B COMPLEX 1 TABLET Take one(1) tablet daily. * MULTIVITAMIN,TX-MINERALS TABL* 1 tab daily Progress Notes: Katanoop Milton, PT 10/24/2017 12:19 PM Signed Episode Visit Count: 25 Therapist That Will Oversee The Plan Of Care: Kat Milton Start of Care Date: 07/14/17 Onset Date: 02/17/17 Patient Identified by Name and Date of : Yes REHABILITATION AND SPORTS THERAPY PHYSICAL THERAPY TREATMENT NOTE ASSESSMENT: Renae Elizondo demonstrated improvements in progression of BAPS board activity, but increased tightness and pain overall. Since pt forgot her shoe today worked more on manual techniques and did not progress gait. The patient will continue to benefit from continued skilled physical therapy for L ankle AROM, strength, edema control and gait. PLAN FOR NEXT VISIT: Progress weight bearing activities per symptom tolerance. SUBJECTIVE: Pt states she is feeling achy all over today. Notes last night her ankle was throbbing. States she has been trying to walk more this week. Pain Score: 7/10 Pain Location: Ankle - Left Description: Aching Post Treatment Pain Score: 6/10 Pain Location: Foot - Left OBJECTIVE MEASURES WITH LEVEL OF FUNCTION: LE AROM L Ankle Plantar Flexion: 42 Degrees TREATMENT: Therapeutic Exercise: 1: Left towel toe scrunches 2x20. 2: Seated BAPS PWB left ball 2 and pegs, A/P, lateral and cw and ccw 2x10 each. and 1 x 5 extra CW. 3: Seated BAPS PWB left ball 2 and pegs, one wt plate at posterior post x 20 reps, then one wt plate at ant-lat post x 10 reps Skilled Intervention: Patient was educated in proper exercise technique and purpose for exercises. Reviewed and educated patient on additions/changes for home exercise program as above (*) Skilled judgment was provided in selection of appropriate interventions. Correct performance of therapeutic exercises was facilitated with verbal and visual cuing. Patient education as noted. Manual Therapy: 1: Retrograde massage including MLD left foot to knee x 10 minutes. Skilled Intervention: Manual skills to improve joint mobility, ROM, and decrease pain. Utilized anatomy knowledge of the therapist, and assessment of patient's response to intervention. Billing: [facility]: Therapeutic Exercise ([id number]): 1:1 time: 30 minutes (2 units: 23-37 mins) Manual Therapy ([id number]): 1:1 time: 10 minutes (1 unit: 8-22 mins) Total time: 40 minutes Kat Milton, PT CNCO Observed: 10/22/2017 Status: COMPLETED Source: [place] 12:00 AM [facility] [place] REPOSITORY Letter Text Karina De Leon M.D. Orthopaedic and Rheumatologic [facility] ? Lower Extremity Trauma [address] [place] [address] [phone] Patient Name: Renae Elizondo : 1955 October 22, 2017 To Whom It May Concern: Renae Elizondo continues to be under my care for her left foot. She had surgery performed on 02/17/17 and was seen for another post op visit on 10/08/17. She will need to remain off of work. Her estimated return to work date was originally set for 08/18/17 which has been extended until 02/16/18. She may or may not be able to return back before that date, however, please note that total recovery from this surgery is approximately 6-9 months. Attached is her 10/08/17 post op visit. Respectfully Submitted, Karina De Leon M.D. PROGRESS Observed: 10/20/2017 Status: COMPLETED Source: [place] 12:55 PM [facility] REPOSITORY HNO ID: [id number] Author: Kat (Pt) Yoan Service: (none) Author Type: Physical Therapist Type: Progress Notes Filed: 10/20/2017 2:06 PM Note Text: Episode Visit Count: 24 Therapist That Will Oversee The Plan Of Care: Kat Milton Start of Care Date: 07/14/17 Onset Date: 02/17/17 Patient Identified by Name and Date of : Yes REHABILITATION AND SPORTS THERAPY PHYSICAL THERAPY TREATMENT NOTE ASSESSMENT: Renae Elizondo demonstrated improvements in progression of activity and improved gait with small based quad cane today. She continues to have increased soreness with increased activity. The patient will continue to benefit from continued skilled physical therapy for ankle strengthening, edema management and gait. PLAN FOR NEXT VISIT: Continue to progress weight bearing activities and use of weights with BAPS board. SUBJECTIVE: Pt reports walking a lot over the weekend and is more sore today. She describes walking around the cemetary cleaning up her family gravesites. She states she started out with tennis shoes and then switched to boot and use of a quad cane that her sister gave her. [place] 3 other people were with her so she was not fearful of falling. Pt to dept. walking with boot and small based quad cane. Pain Score: 6/10 Pain Location: Ankle - Left Description: Aching Post Treatment Pain Score: No Change Pain Location: Foot - Left Post Treatment Pain Description: Aching OBJECTIVE MEASURES WITH LEVEL OF FUNCTION: Gait Gait Observation: Pt demonstrated independent ambulation with small based quad cane wearing boot and also when wearing tennis shoes. She required verbal cues for correction of walker placement (to insure all four prongs flat on floor and avoid tipping/rocking cane), but was able to self-correct later on. Pt utilized a step-to pattern. TREATMENT: Therapeutic Exercise: 1: ankle alphabet x1 2: Seated BAPS PWB left ball 2 and pegs, A/P, lateral and cw and ccw 2x10 each. 3: Seated BAPS PWB left ball 2 and pegs, one wt plate at posterior post, then one wt plate at ant-lat post; A/P motion 1x 5 reps 4: Left towel toe scrunches 2x20. Skilled Intervention: Patient was educated in proper exercise technique and purpose for exercises. Reviewed and educated patient on additions/changes for home exercise program Skilled judgment was provided in selection of appropriate interventions. Correct performance of therapeutic exercises was facilitated with verbal and visual cuing. Patient education as noted. Manual Therapy: 1: Retrograde massage including MLD left foot to knee x 8 minutes. Skilled Intervention: Manual skills to improve joint mobility, ROM, and decrease pain. Utilized anatomy knowledge of the therapist, and assessment of patient's response to intervention. Gait Trainin: Gait with shoes and straight cane x 120 ft x 1 2: Side stepping in // bars back and forth x 2 each direction. Skilled Intervention: Facilitated proper gait cycle with the use of verbal cues for correction of gait deviations identified in the objective section above. Skilled judgment used to assess proper sizing and proper use of assistive device. Billing: [facility]: Therapeutic Exercise ([id number]): 1:1 time: 22 minutes (1 unit: 8-22 mins) Manual Therapy ([id number]): 1:1 time: 8 minutes (1 unit: 8-22 mins) Gait Training ([id number]): 1:1 time: 15 minutes (1 unit: 8-22 mins) Total time: 45 minutes Kat Milton PT CNTHERAPY Observed: 10/20/2017 Status: COMPLETED Source: [place] 12:45 PM [facility] REPOSITORY OT/PT/Speech Visit (PTWS) RENAE ELIZONDO ([id number]) 1955 F Date Time Provider Department 10/20/17 12:45 PM KAT MLITON (PT) PTWS Date Time Provider Department Center 10/20/2017 12:45 PM [id number] MILTON (PT) PTWS [facility] Reason for Visit: Physical Therapy [503] Primary Visit Diagnosis:Arthritis, midfoot [M19.079] Allergies As of Date: 10/20/2017 Noted Allergy Reaction ADHESIVE TAPE (ROSINS) 02/13/2006 2 - Rash Comments: tore skin/blisters MORPHINE 02/05/2006 5 - Intolerance Comments: vomiting, shaking. NSAIDS (NON-STEROIDAL ANTI-INFLAM*10/05/2014 11 - Vomiting VASOTEC (ENALAPRIL MALEATE) 09/08/2008 Comments: nausea/doesn't work Date Reviewed: 10/16/2017 Reviewed by: Jorge Martinez - Fully Assessed Prescriptions as of 10/20/2017 Sig: HYDROXYCHLOROQUINE 200 MG TAB* TAKE ONE TABLET BY MOUTH TWIC* LEFLUNOMIDE 20 MG TABLET Take 1 tablet by mouth once d* DICLOFENAC 1 % TOPICAL GEL apply topically 4 grams to fo* CHOLECALCIFEROL (VITAMIN D3) * Take 2,000 Units by mouth onc* PROLIA SUBCUTANEOUS Inject subcutaneously once e* CELECOXIB 200 MG CAPSULE Take 200 mg by mouth as neede* MAGNESIUM OXIDE 500 MG TABLET Taking 250mg. Take two tablet* ACETAMINOPHEN 500 MG TABLET Take 500 mg by mouth every 8 * CPAP CHIN STRAP, USED WITH CPAP DE* FLUTICASONE 50 MCG/ACTUATION * Use 1 [place] in each nostril d* FERROUS SULFATE 325 MG (65 MG* Take 325 mg by mouth daily wi* ASCORBIC ACID (VITAMIN C) 500* Take 500 mg by mouth three ti* CPAP AutoPAP 10-20 cmH2O, suitable* CYCLOBENZAPRINE 10 MG TABLET LEVOTHYROXINE 50 MCG TABLET Take 50 mcg by mouth daily be* CLOBETASOL 0.05 % TOPICAL CRE* as directed * GABAPENTIN 300 MG CAPSULE Take 300 mg by mouth three ti* * PROMETHAZINE 25 MG TABLET Take one(1) tablet every four* * ATIVAN 1 MG TABLET takes 1/2 tab as needed * FENTANYL 50 MCG/HR TRANSDERMA* Apply as directed. Change pat* * B COMPLEX 1 TABLET Take one(1) tablet daily. * MULTIVITAMIN,TX-MINERALS TABL* 1 tab daily Progress Notes: Kat Milton, PT 10/20/2017 2:06 PM Signed Episode Visit Count: 24 Therapist That Will Oversee The Plan Of Care: Kat Milton Start of Care Date: 07/14/17 Onset Date: 02/17/17 Patient Identified by Name and Date of : Yes REHABILITATION AND SPORTS THERAPY PHYSICAL THERAPY TREATMENT NOTE ASSESSMENT: Renae Elizondo demonstrated improvements in progression of activity and improved gait with small based quad cane today. She continues to have increased soreness with increased activity. The patient will continue to benefit from continued skilled physical therapy for ankle strengthening, edema management and gait. PLAN FOR NEXT VISIT: Continue to progress weight bearing activities and use of weights with BAPS board. SUBJECTIVE: Pt reports walking a lot over the weekend and is more sore today. She describes walking around the cemetary cleaning up her family gravesites. She states she started out with tennis shoes and then switched to boot and use of a quad cane that her sister gave her. [place] 3 other people were with her so she was not fearful of falling. Pt to dept. walking with boot and small based quad cane. Pain Score: 6/10 Pain Location: Ankle - Left Description: Aching Post Treatment Pain Score: No Change Pain Location: Foot - Left Post Treatment Pain Description: Aching OBJECTIVE MEASURES WITH LEVEL OF FUNCTION: Gait Gait Observation: Pt demonstrated independent ambulation with small based quad cane wearing boot and also when wearing tennis shoes. She required verbal cues for correction of walker placement (to insure all four prongs flat on floor and avoid tipping/rocking cane), but was able to self-correct later on. Pt utilized a step-to pattern. TREATMENT: Therapeutic Exercise: 1: ankle alphabet x1 2: Seated BAPS PWB left ball 2 and pegs, A/P, lateral and cw and ccw 2x10 each. 3: Seated BAPS PWB left ball 2 and pegs, one wt plate at posterior post, then one wt plate at ant-lat post; A/P motion 1x 5 reps 4: Left towel toe scrunches 2x20. Skilled Intervention: Patient was educated in proper exercise technique and purpose for exercises. Reviewed and educated patient on additions/changes for home exercise program Skilled judgment was provided in selection of appropriate interventions. Correct performance of therapeutic exercises was facilitated with verbal and visual cuing. Patient education as noted. Manual Therapy: 1: Retrograde massage including MLD left foot to knee x 8 minutes. Skilled Intervention: Manual skills to improve joint mobility, ROM, and decrease pain. Utilized anatomy knowledge of the therapist, and assessment of patient's response to intervention. Gait Trainin: Gait with shoes and straight cane x 120 ft x 1 2: Side stepping in // bars back and forth x 2 each direction. Skilled Intervention: Facilitated proper gait cycle with the use of verbal cues for correction of gait deviations identified in the objective section above. Skilled judgment used to assess proper sizing and proper use of assistive device. Billing: [facility]: Therapeutic Exercise ([id number]): 1:1 time: 22 minutes (1 unit: 8-22 mins) Manual Therapy ([id number]): 1:1 time: 8 minutes (1 unit: 8-22 mins) Gait Training ([id number]): 1:1 time: 15 minutes (1 unit: 8-22 mins) Total time: 45 minutes Kat Milton PT PROGRESS Observed: 10/17/2017 Status: COMPLETED Source: [place] 10:17 AM [facility] REPOSITORY HNO ID: [id number] Author: Kat (Pt) Yoan Service: (none) Author Type: Physical Therapist Type: Progress Notes Filed: 10/17/2017 11:17 AM Note Text: Episode Visit Count: 23 Therapist That Will Oversee The Plan Of Care: Kat Milton Start of Care Date: 07/14/17 Onset Date: 02/17/17 Patient Identified by Name and Date of : Yes REHABILITATION AND SPORTS THERAPY PHYSICAL THERAPY TREATMENT NOTE ASSESSMENT: Renae Elizondo demonstrated improvements in pain level and weight bearing activities. The patient will continue to benefit from continued skilled physical therapy for AROM, strengthening and gait. PLAN FOR NEXT VISIT: Assess response to increased weight bearing activity today and attempt BAPS board with weights. SUBJECTIVE: Pt reports episode of top of left foot and ankle giving out when stepping with her walker. She notes this happened about 3 different times. Pain Score: 4/10 Pain Location: Ankle - Left Description: Aching Post Treatment Pain Score: 5/10 Pain Location: Foot - Left Post Treatment Pain Description: Aching OBJECTIVE MEASURES WITH LEVEL OF FUNCTION: Gait Gait Observation: Pt demonstrates improved gait pattern with cane today. She displays incresaed weight bearing L LE and more symmetrical step and trunk alignment. Continue to encourage incresaed heel strike and toe off. TREATMENT: Therapeutic Exercise: 1: ankle alphabet x1 2: Seated BAPS PWB left ball 2 and pegs, A/P, lateral and cw and ccw 2x10 each. 3: Left towel toe scrunches 2x20. Skilled Intervention: Patient was educated in proper exercise technique and purpose for exercises. Skilled judgment was provided in selection of appropriate interventions. Correct performance of therapeutic exercises was facilitated with verbal and visual cuing. Patient education as noted. Manual Therapy: 1: Retrograde massage including MLD left foot to knee x 8 minutes. Skilled Intervention: Manual skills to improve joint mobility, ROM, and decrease pain. Utilized anatomy knowledge of the therapist, and assessment of patient's response to intervention. Gait Trainin: Gait with shoes and straight cane x 50 ft x 2. 2: Side stepping in // bars back and forth x 2 each direction. Skilled Intervention: Facilitated proper gait cycle with the use of verbal and visual cues for correction of gait deviations identified in the objective section above. Skilled judgment used to assess proper sizing of assistive device. Billing: [facility]: Therapeutic Exercise (71593): 1:1 time: 20 minutes (1 unit: 8-22 mins) Manual Therapy (30511): 1:1 time: 8 minutes (1 unit: 8-22 mins) Gait Training (55448): 1:1 time: 15 minutes (1 unit: 8-22 mins) Total time: 43 minutes Kat Milton PT CNTHERAPY Observed: 10/17/2017 Status: COMPLETED Source: [place] 10:15 AM [facility] [place] REPOSITORY OT/PT/Speech Visit (PTWS) RENAE ELIZONDO ([id number]) 1955 F Date Time Provider Department 10/17/17 10:15 AM KAT MILTONPT) PTWS Date Time Provider Department Center 10/17/2017 10:15 AM [id number] MILTON (PT) PTWS [facility] Reason for Visit: Physical Therapy [503] Primary Visit Diagnosis:Arthritis, midfoot [M19.079] Allergies As of Date: 10/17/2017 Noted Allergy Reaction ADHESIVE TAPE (ROSINS) 02/13/2006 2 - Rash Comments: tore skin/blisters MORPHINE 02/05/2006 5 - Intolerance Comments: vomiting, shaking. NSAIDS (NON-STEROIDAL ANTI-INFLAM*10/05/2014 11 - Vomiting VASOTEC (ENALAPRIL MALEATE) 09/08/2008 Comments: nausea/doesn't work Date Reviewed: 10/16/2017 Reviewed by: Jorge Martinez - Fully Assessed Prescriptions as of 10/17/2017 Sig: HYDROXYCHLOROQUINE 200 MG TAB* TAKE ONE TABLET BY MOUTH TWIC* LEFLUNOMIDE 20 MG TABLET Take 1 tablet by mouth once d* DICLOFENAC 1 % TOPICAL GEL apply topically 4 grams to fo* CHOLECALCIFEROL (VITAMIN D3) * Take 2,000 Units by mouth onc* PROLIA SUBCUTANEOUS Inject subcutaneously once e* CELECOXIB 200 MG CAPSULE Take 200 mg by mouth as neede* MAGNESIUM OXIDE 500 MG TABLET Taking 250mg. Take two tablet* ACETAMINOPHEN 500 MG TABLET Take 500 mg by mouth every 8 * CPAP CHIN STRAP, USED WITH CPAP DE* FLUTICASONE 50 MCG/ACTUATION * Use 1 [place] in each nostril d* FERROUS SULFATE 325 MG (65 MG* Take 325 mg by mouth daily wi* ASCORBIC ACID (VITAMIN C) 500* Take 500 mg by mouth three ti* CPAP AutoPAP 10-20 cmH2O, suitable* CYCLOBENZAPRINE 10 MG TABLET LEVOTHYROXINE 50 MCG TABLET Take 50 mcg by mouth daily be* CLOBETASOL 0.05 % TOPICAL CRE* as directed * GABAPENTIN 300 MG CAPSULE Take 300 mg by mouth three ti* * PROMETHAZINE 25 MG TABLET Take one(1) tablet every four* * ATIVAN 1 MG TABLET takes 1/2 tab as needed * FENTANYL 50 MCG/HR TRANSDERMA* Apply as directed. Change pat* * B COMPLEX 1 TABLET Take one(1) tablet daily. * MULTIVITAMIN,TX-MINERALS TABL* 1 tab daily Progress Notes: Kat Milton PT 10/17/2017 11:17 AM Signed Episode Visit Count: 23 Therapist That Will Oversee The Plan Of Care: Kat Milton Start of Care Date: 07/14/17 Onset Date: 02/17/17 Patient Identified by Name and Date of : Yes REHABILITATION AND SPORTS THERAPY PHYSICAL THERAPY TREATMENT NOTE ASSESSMENT: Renae Elizondo demonstrated improvements in pain level and weight bearing activities. The patient will continue to benefit from continued skilled physical therapy for AROM, strengthening and gait. PLAN FOR NEXT VISIT: Assess response to increased weight bearing activity today and attempt BAPS board with weights. SUBJECTIVE: Pt reports episode of top of left foot and ankle giving out when stepping with her walker. She notes this happened about 3 different times. Pain Score: 4/10 Pain Location: Ankle - Left Description: Aching Post Treatment Pain Score: 5/10 Pain Location: Foot - Left Post Treatment Pain Description: Aching OBJECTIVE MEASURES WITH LEVEL OF FUNCTION: Gait Gait Observation: Pt demonstrates improved gait pattern with cane today. She displays incresaed weight bearing L LE and more symmetrical step and trunk alignment. Continue to encourage incresaed heel strike and toe off. TREATMENT: Therapeutic Exercise: 1: ankle alphabet x1 2: Seated BAPS PWB left ball 2 and pegs, A/P, lateral and cw and ccw 2x10 each. 3: Left towel toe scrunches 2x20. Skilled Intervention: Patient was educated in proper exercise technique and purpose for exercises. Skilled judgment was provided in selection of appropriate interventions. Correct performance of therapeutic exercises was facilitated with verbal and visual cuing. Patient education as noted. Manual Therapy: 1: Retrograde massage including MLD left foot to knee x 8 minutes. Skilled Intervention: Manual skills to improve joint mobility, ROM, and decrease pain. Utilized anatomy knowledge of the therapist, and assessment of patient's response to intervention. Gait Trainin: Gait with shoes and straight cane x 50 ft x 2. 2: Side stepping in // bars back and forth x 2 each direction. Skilled Intervention: Facilitated proper gait cycle with the use of verbal and visual cues for correction of gait deviations identified in the objective section above. Skilled judgment used to assess proper sizing of assistive device. Billing: [facility]: Therapeutic Exercise (77354): 1:1 time: 20 minutes (1 unit: 8-22 mins) Manual Therapy (81908): 1:1 time: 8 minutes (1 unit: 8-22 mins) Gait Training (40885): 1:1 time: 15 minutes (1 unit: 8-22 mins) Total time: 43 minutes Kat Milton, PT PROGRESS Observed: 10/16/2017 Status: COMPLETED Source: [place] 9:27 AM [facility] [place] REPOSITORY O ID: [id number] Author: Jorge Martinez Service: (none) Author Type: Physician Type: Progress Notes Filed: 10/31/2017 6:51 AM Note Text: Jorge Martinez MD Department of Orthopaedics [facility] [address] [facility] [address] Dept: [phone] Dept October 16, 2017 CHIEF COMPLAINT: Surgical Followup (5 weeks 6 days post op Right 2nd, 3rd, and 5th DIP joint fusions). ASSESSMENT: M19.041 Osteoarthritis of finger of right hand (primary encounter diagnosis) SUMMARY/PLAN: Patient is 6 weeks status post fusions of her index, middle and small fingers. She's actually doing rather well and only has mild, 3 out of 10 discomfort and soreness. Using the hand quite well. She can follow-up as needed. Exam: Surgical sites of healed excellently. There is no signs of infection or concerns. Neurovascular exam in all the digits is intact. Imaging: IMPRESSION: Postsurgical changes without interval complication. 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 Transcribe Date/Time: Oct 16 2017 ?3:35P Dictated by : JUSTIN HOLLAND MD This examination was interpreted and the report reviewed and electronically signed by: JUSTIN HOLLAND MD on Oct 16 2017 ?3:37PM ?EST Results-Findings * * *Final Report* * * DATE OF EXAM: Oct 16 2017 ?9:03AM ? WRX ? [id number] ?- ?XR HAND 3V PA/LAT/OBL RT ?/ PROCEDURE REASON: multiple diagnoses ?? ? * * * * Physician Interpretation * * * * ?HISTORY: Postop follow-up COMPARISON: Comparison is made to prior hand study dated 25 August 2017 RESULT: 3 views of the right hand demonstrate diffuse soft tissue swelling. There is no gas within the soft tissue. Threaded orthopedic pins at the second and third DIPs without interval change. Visualized surgical hardware is intact and there is no radiographic evidence for loosening or superimposed fracture. Interval placement of a orthopedic K wire with cerclage wire at the fifth PIP. Visualized surgical hardware is intact and there is no radiographic evidence for loosening or superimposed fracture. There is diffuse soft tissue swelling about the fifth finger proximally and at the PIP. Ms. Renae Elizondo was advised as to contrast therapies and/or to take analgesics/anti-inflammatories as needed and all contraindications were reviewed. Supporting Information Below: Medications: Current Outpatient Prescriptions: hydroxychloroquine (PLAQUENIL) 200 mg tablet TAKE ONE TABLET BY MOUTH TWICE DAILY leflunomide (ARAVA) 20 mg tablet Take 1 tablet by mouth once daily. diclofenac sodium (VOLTAREN) 1 % topical gel apply topically 4 grams to foot four times a day cholecalciferol (VITAMIN D-3) 2,000 unit tablet Take 2,000 Units by mouth once daily. DENOSUMAB (PROLIA SUBCUTANEOUS) Inject subcutaneously once every 6 months. celecoxib (CELEBREX) 200 mg capsule Take 200 mg by mouth as needed. Magnesium Oxide 500 mg tab Taking 250mg. Take two tablets by mouth once daily. acetaminophen (TYLENOL EXTRA STRENGTH) 500 mg tablet Take 500 mg by mouth every 8 hours as needed. CPAP CHIN STRAP, USED WITH CPAP DEVICE fluticasone (FLONASE) 50 mcg/actuation nasal spray Use 1 [place] in each nostril daily at bedtime. ferrous sulfate 325 mg (65 mg iron) tablet Take 325 mg by mouth daily with breakfast. ascorbic acid (VITAMIN C) 500 mg tablet Take 500 mg by mouth three times daily. CPAP AutoPAP 10-20 cmH2O, suitable mask, humidity, filters. Lifetime supplies. Dx: 327.23. Fax compliance rpt to [phone] in 4-6 weeks. cyclobenzaprine (FLEXERIL) 10 mg tablet levothyroxine (LEVOTHROID) 50 mcg tablet Take 50 mcg by mouth daily before breakfast. CLOBETASOL 0.05 % cream as directed gabapentin 300 mg capsule Take 300 mg by mouth three times daily. PROMETHAZINE 25 MG TAB Take one(1) tablet every four(4) to six(6) hours as needed for nausea. lorazepam(ATIVAN 1 MG TAB) takes 1/2 tab as needed fentanyl 50 mcg/hr TRANSDERM. PT72 Apply as directed. Change patch every 3 days. B COMPLEX 1 TAB Take one(1) tablet daily. MULTIVITAMIN,TX-MINERALS TAB 1 tab daily No current facility-administered medications for this visit. Allergies: Adhesive Tape (Rosins); Morphine; Nsaids (Non-Steroidal Anti-Inflammatory Drug); Vasotec [Enalapril Maleate] This note was partially generated using [employer] voice recognition system, and there may be some incorrect words, spellings, and punctuation that were not noted in checking the note before saving. Jorge Martinez MD PROGRESS Observed: 10/16/2017 Status: COMPLETED Source: [place] 9:10 AM [facility] [place] REPOSITORY HNO ID: [id number] Author: Julissa Rosas Ma Service: (none) Author Type: (none) Type: Progress Notes Filed: 10/31/2017 6:51 AM Note Text: Patient presents with: Surgical Followup: 5 weeks 6 days post op Right 2nd, 3rd, and 5th DIP joint fusions AMB ROOMING INTAKE FLOWSHEET DATA Risk Screening Do you have concerns about personal safety or safety in the home?: No Pain Pain Score: 3/10 Pain Location: (Right 5th finger) Description: Sore, Sharp, Aching, Dull Duration Amount of Time: 5 Duration Units: Weeks Frequency: Continuous (Dull pain) Intervention: Medication Patient states she is having some pain in her right 5th finger. States the pain can be into her hand also. Taking Tylenol as needed for the pain and helps some. X-ray done today. PROGRESS Observed: 10/16/2017 Status: COMPLETED Source: [place] 9:05 AM [facility] [place] REPOSITORY HNO ID: [id number] Author: Dylan Lyman (Rt) Service: (none) Author Type: Kindergarten Paraprofessional Type: Progress Notes Filed: 10/16/2017 9:05 AM Note Text: Radiology Service Progress Note PATIENT NAME: Renae Elizondo DATE OF SERVICE: October 16, 2017 TIME: 9:05 AM PATIENT IDENTITY VERIFICATION COMPLETED USING TWO (2) METHODS: Patient confirmed name verbally and Date of . PATIENT GENDER DATA: Female. status: : No status: NO. PATIENT RELEVANT IMPLANT DATA REVIEWED: Not Applicable RADIOLOGY DEPARTMENT: General X-ray: Exam(s) Completed: Upper Extremity X-Ray(s): Hand, right : PERIPHERAL IV DATA: Not applicable SIGNED BY: RT Nura October 16, 2017 9:05 AM XR HAND 3V PA/LAT/OBL Observed: 10/16/2017 Status: F Source: [facility] 9:03 AM [facility] [place] REPOSITORY * * *Final Report* * * DATE OF EXAM: Oct 16 2017 9:03AM WRX [id number] - XR HAND 3V PA/LAT/OBL RT / PROCEDURE REASON: multiple diagnoses * * * * Physician Interpretation * * * * HISTORY: Postop follow-up COMPARISON: Comparison is made to prior hand study dated 25 August 2017 RESULT: 3 views of the right hand demonstrate diffuse soft tissue swelling. There is no gas within the soft tissue. Threaded orthopedic pins at the second and third DIPs without interval change. Visualized surgical hardware is intact and there is no radiographic evidence for loosening or superimposed fracture. Interval placement of a orthopedic K wire with cerclage wire at the fifth PIP. Visualized surgical hardware is intact and there is no radiographic evidence for loosening or superimposed fracture. There is diffuse soft tissue swelling about the fifth finger proximally and at the PIP. IMPRESSION: Postsurgical changes without interval complication. 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 Transcribe Date/Time: Oct 16 2017 3:35P Dictated by : JUSTIN HOLLAND MD This examination was interpreted and the report reviewed and electronically signed by: JUSTIN HOLLAND MD on Oct 16 2017 3:37PM EST [id number] Observed: 10/16/2017 Status: COMPLETED Source: [place] 8:30 AM [facility] [place] REPOSITORY Office Visit (OSMANYWS) RENAE ELIZONDO ([id number]) 1955 F Date Time Provider Department 10/16/17 8:30 AM JORGE MARTINEZ During your visit today, we recorded the following information about you: Julissa Rosas Yamel 10/31/2017 6:51 AM Signed Patient presents with: Surgical Followup: 5 weeks 6 days post op Right 2nd, 3rd, and 5th DIP joint fusions AMB ROOMING INTAKE FLOWSHEET DATA Risk Screening Do you have concerns about personal safety or safety in the home?: No Pain Pain Score: 3/10 Pain Location: (Right 5th finger) Description: Sore, Sharp, Aching, Dull Duration Amount of Time: 5 Duration Units: Weeks Frequency: Continuous (Dull pain) Intervention: Medication Patient states she is having some pain in her right 5th finger. States the pain can be into her hand also. Taking Tylenol as needed for the pain and helps some. X-ray done today. Jorge Martinez MD 10/31/2017 6:51 AM Signed Jorge Martinez MD Department of Orthopaedics Orthopaedics [address] [facility] [address] Dept: [phone] Dept October 16, 2017 CHIEF COMPLAINT: Surgical Followup (5 weeks 6 days post op Right 2nd, 3rd, and 5th DIP joint fusions). ASSESSMENT: M19.041 Osteoarthritis of finger of right hand (primary encounter diagnosis) SUMMARY/PLAN: Patient is 6 weeks status post fusions of her index, middle and small fingers. She's actually doing rather well and only has mild, 3 out of 10 discomfort and soreness. Using the hand quite well. She can follow-up as needed. Exam: Surgical sites of healed excellently. There is no signs of infection or concerns. Neurovascular exam in all the digits is intact. Imaging: IMPRESSION: Postsurgical changes without interval complication. 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 Transcribe Date/Time: Oct 16 2017 ?3:35P Dictated by : JUSTIN HOLLAND MD This examination was interpreted and the report reviewed and electronically signed by: JUSTIN HOLLAND MD on Oct 16 2017 ?3:37PM ?EST Results-Findings * * *Final Report* * * DATE OF EXAM: Oct 16 2017 ?9:03AM ? WRX ? 5346 ?- ?XR HAND 3V PA/LAT/OBL RT ?/ PROCEDURE REASON: multiple diagnoses ?? ? * * * * Physician Interpretation * * * * ?HISTORY: Postop follow-up COMPARISON: Comparison is made to prior hand study dated 25 August 2017 RESULT: 3 views of the right hand demonstrate diffuse soft tissue swelling. There is no gas within the soft tissue. Threaded orthopedic pins at the second and third DIPs without interval change. Visualized surgical hardware is intact and there is no radiographic evidence for loosening or superimposed fracture. Interval placement of a orthopedic K wire with cerclage wire at the fifth PIP. Visualized surgical hardware is intact and there is no radiographic evidence for loosening or superimposed fracture. There is diffuse soft tissue swelling about the fifth finger proximally and at the PIP. Ms. Renae Elizondo was advised as to contrast therapies and/or to take analgesics/anti-inflammatories as needed and all contraindications were reviewed. Supporting Information Below: Medications: Current Outpatient Prescriptions: hydroxychloroquine (PLAQUENIL) 200 mg tablet TAKE ONE TABLET BY MOUTH TWICE DAILY leflunomide (ARAVA) 20 mg tablet Take 1 tablet by mouth once daily. diclofenac sodium (VOLTAREN) 1 % topical gel apply topically 4 grams to foot four times a day cholecalciferol (VITAMIN D-3) 2,000 unit tablet Take 2,000 Units by mouth once daily. DENOSUMAB (PROLIA SUBCUTANEOUS) Inject subcutaneously once every 6 months. celecoxib (CELEBREX) 200 mg capsule Take 200 mg by mouth as needed. Magnesium Oxide 500 mg tab Taking 250mg. Take two tablets by mouth once daily. acetaminophen (TYLENOL EXTRA STRENGTH) 500 mg tablet Take 500 mg by mouth every 8 hours as needed. CPAP CHIN STRAP, USED WITH CPAP DEVICE fluticasone (FLONASE) 50 mcg/actuation nasal spray Use 1 [place] in each nostril daily at bedtime. ferrous sulfate 325 mg (65 mg iron) tablet Take 325 mg by mouth daily with breakfast. ascorbic acid (VITAMIN C) 500 mg tablet Take 500 mg by mouth three times daily. CPAP AutoPAP 10-20 cmH2O, suitable mask, humidity, filters. Lifetime supplies. Dx: 327.23. Fax compliance rpt to [phone] in 4-6 weeks. cyclobenzaprine (FLEXERIL) 10 mg tablet levothyroxine (LEVOTHROID) 50 mcg tablet Take 50 mcg by mouth daily before breakfast. CLOBETASOL 0.05 % cream as directed gabapentin 300 mg capsule Take 300 mg by mouth three times daily. PROMETHAZINE 25 MG TAB Take one(1) tablet every four(4) to six(6) hours as needed for nausea. lorazepam(ATIVAN 1 MG TAB) takes 1/2 tab as needed fentanyl 50 mcg/hr TRANSDERM. PT72 Apply as directed. Change patch every 3 days. B COMPLEX 1 TAB Take one(1) tablet daily. MULTIVITAMIN,TX-MINERALS TAB 1 tab daily No current facility-administered medications for this visit. Allergies: Adhesive Tape (Rosins); Morphine; Nsaids (Non-Steroidal Anti-Inflammatory Drug); Vasotec [Enalapril Maleate] This note was partially generated using [employer] voice recognition system, and there may be some incorrect words, spellings, and punctuation that were not noted in checking the note before saving. Jorge Martinez MD Referring Provider: JORGE MARTINEZ [[id number]] Allergies As of Date: 10/16/2017 Noted Allergy Reaction ADHESIVE TAPE (ROSINS) 02/13/2006 2 - Rash Comments: tore skin/blisters MORPHINE 02/05/2006 5 - Intolerance Comments: vomiting, shaking. NSAIDS (NON-STEROIDAL ANTI-INFLAM*10/05/2014 11 - Vomiting VASOTEC (ENALAPRIL MALEATE) 09/08/2008 Comments: nausea/doesn't work Date Reviewed: 10/16/2017 Reviewed by: Jorge Martinez - Fully Assessed Reason for Visit: Surgical Followup [104] Cmt: 5 weeks 6 days post op Right 2nd, 3rd, and 5th DIP joint fusions Primary Visit Diagnosis:Osteoarthritis of finger of right hand [M19.041] Prescriptions as of 10/16/2017 Sig: HYDROXYCHLOROQUINE 200 MG TAB* TAKE ONE TABLET BY MOUTH TWIC* LEFLUNOMIDE 20 MG TABLET Take 1 tablet by mouth once d* X DICLOFENAC 1 % TOPICAL GEL apply topically 4 grams to fo* CHOLECALCIFEROL (VITAMIN D3) * Take 2,000 Units by mouth onc* PROLIA SUBCUTANEOUS Inject subcutaneously once e* CELECOXIB 200 MG CAPSULE Take 200 mg by mouth as neede* MAGNESIUM OXIDE 500 MG TABLET Taking 250mg. Take two tablet* ACETAMINOPHEN 500 MG TABLET Take 500 mg by mouth every 8 * CPAP CHIN STRAP, USED WITH CPAP DE* FLUTICASONE 50 MCG/ACTUATION * Use 1 [place] in each nostril d* FERROUS SULFATE 325 MG (65 MG* Take 325 mg by mouth daily wi* ASCORBIC ACID (VITAMIN C) 500* Take 500 mg by mouth three ti* CPAP AutoPAP 10-20 cmH2O, suitable* CYCLOBENZAPRINE 10 MG TABLET LEVOTHYROXINE 50 MCG TABLET Take 50 mcg by mouth daily be* CLOBETASOL 0.05 % TOPICAL CRE* as directed * GABAPENTIN 300 MG CAPSULE Take 300 mg by mouth three ti* * PROMETHAZINE 25 MG TABLET Take one(1) tablet every four* * ATIVAN 1 MG TABLET takes 1/2 tab as needed * FENTANYL 50 MCG/HR TRANSDERMA* Apply as directed. Change pat* * B COMPLEX 1 TABLET Take one(1) tablet daily. * MULTIVITAMIN,TX-MINERALS TABL* 1 tab daily Problem List As Of Date 10/16/2017 Noted Resolved LUMP OR MASS IN BREAST [N63.0] INVALID FOR* MALIG NEOPLASM BREAST-CENTRAL [C50.119] INVALID FOR* SEROMA, POST OP [KEL4795] INVALID FOR*09/30/2016 ANEMIA NOS [D64.9] INVALID FOR* Sacroiliac joint pain [M53.3] INVALID FOR* Benign neoplasm of skin of trunk, except scrotu*INVALID FOR* HARRISON (obstructive sleep apnea) AHI 13, but with *INVALID FOR* More... RLS (restless legs syndrome) [G25.81] INVALID FOR* Low ferritin level [R79.0] INVALID FOR* Sarcoidosis (HCC) [D86.9] INVALID FOR* Nasal congestion, nocturnal. 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 Pain in finger of right hand [M79.644] INVALID FOR* More... 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 Obesity, Class III, BMI >= 40 [E66.01] INVALID FOR* Encounter Status:Closed by JORGE MARTINEZ MD on 10/31/17 PROGRESS Observed: 10/13/2017 Status: COMPLETED Source: [place] 10:35 AM [facility] [place] [facility] REPOSITORY HNO ID: [id number] Author: Kat (Pt) Yoan Service: (none) Author Type: Physical Therapist Type: Progress Notes Filed: 10/22/2017 9:06 AM Note Text: Episode Visit Count: 22 Therapist That Will Oversee The Plan Of Care: Kat Milton Start of Care Date: 07/14/17 Onset Date: 02/17/17 Patient Identified by Name and Date of : Yes REHABILITATION AND SPORTS THERAPY PHYSICAL THERAPY PROGRESS REPORT PLAN OF CARE UPDATE: Assessment: Renae Elizondo exhibits improvements in AROM, strength and gait. She continues to be limited with fluctuating edema, standing, walking, walking in the community and stair negotiation. She is progressing slower than expected towards her therapy goals as demonstrated by: pain levels, documented subjective information on progress and documented objective information regarding gait, ADL's, strength and range of motion. She will benefit from continued skilled therapy requiring AROM, strengthening, edema management and gait instruction in order to further improve L LE AROM, strength, edema and gait and allow pt to safely ambulate without use of walking boot. Functional gains: Improved gait quality Increased endurance / activity tolerance Increased independence with HEP Increased ROM Increased strength Decreased intensity of pain Decreased frequency of pain Goals for Episode of Care: created on 07/14/17 through 09/13/17 Goals updated on 10/13/2017. [place] in home exercise program. (Met) Patient will decrease pain rating by 2 points to meet minimal clinical important difference for numeric pain rating scale. (Partially Met)- inconsistent Patient will increase active ROM of L ankle to allow pt to improved performance of ADLs and to normalize gait mechanics / gait pattern . (Partially Met)- progressing Patient will increase strength of L LE to 4+ to 5/5 to allow for return to prior functional status and normalized gait mechanics. (Partially Met)- progressing Perform community ambulation, stair negotiation and undisturbed sleep with decreased report of symptoms/pain in 8 weeks. (Partially Met) Demonstrate improvement on functional score: Patient will increase his/her score on the Lower Extremity Functional Scale by at least 9 points to indicate a Minimal Clinical Important Difference. (Not Met) Normal gait. (Not Met) Planned Interventions, Frequency, and Duration: 2x/week, 4 weeks Total Number of Visits Planned: 8 Patient to be seen for PLAN FOR NEXT VISIT: Progress strengthening and weight bearing /gait activities. SUBJECTIVE: Pt reports she was walking outside and did not have her boot on tight and fell.She notes she was out back where the ground is more unstable. She denies injury to her ankle, but feels she twisted her low back a little. Pt did not bring her other shoe today (she is wearing the boot and forgot to grab it before she left). She notes She is ambulating in the house with her shoe for a little longer at a time, and in the community is walking up to an hour when uses boot and a shopping cart.Stair negotiation is still difficult for her. Most of the time she can sleep undisturbed, but at times will still be awakened d/t pain and have to reposition her foot to get back to sleep. Pain Score: 6/10 Pain Location: Ankle - Left (R low back also) Description: Sharp;Stiffness Post Treatment Pain Score: 6/10 Pain Location: Foot - Left Post Treatment Pain Description: Aching;Dull (less sharp) OBJECTIVE MEASURES WITH LEVEL OF FUNCTION: Ankle Observations Comments: 2 above mall: L 24; B mall: L 26.5; heel: L 34.5; midfoot: L 27; MTP: L 26 (measured pre-treatment). Gait Gait Observation: Pt ambulates independently without assistive device with boot on L LE. Pt did not bring her other shoe to evaluate ambulation in shoes today, though has demonstrated improvements in gait pattern since previous progress update. LE AROM L Ankle Dorsiflexion: 9 Degrees L Ankle Plantar Flexion: 40 Degrees L Ankle Inversion: 15 L Ankle Eversion: 15 LE Strength L Ankle Dorsiflexion (L4): 4+/5 L Ankle Plantar Flexion: 4+/5 L Ankle Inversion: (pain) L Ankle Eversion: (pain) TREATMENT: Therapeutic Exercise: 1: AROM ankle pumps x 20 reps 2: AROM ankle inv/ever x 20 reps 3: ankle alphabet x1 4: Seated BAPS PWB left ball 2 and pegs, A/P, lateral and cw and ccw 2x10 each. 5: Left towel toe scrunches 2x15. Skilled Intervention: Patient was educated in proper exercise technique and purpose for exercises. Reviewed and educated patient on additions/changes for home exercise program Skilled judgment was provided in selection of appropriate interventions. Correct performance of therapeutic exercises was facilitated with verbal and visual cuing. Patient education as noted. Objective measurements and reassessment. Manual Therapy: 1: Retrograde massage including MLD left foot to knee x 10 minutes. Skilled Intervention: Manual skills to improve joint mobility, lymphodynamics, ROM, and decrease pain. Utilized anatomy knowledge of the therapist, and assessment of patient's response to intervention. Gait Trainin: Gait with boot x 40 ft x 2. Skilled Intervention: Facilitated proper gait cycle with the use of verbal and visual cues for correction of gait deviations identified in the objective section above. Billing: [facility]: Therapeutic Exercise (62999): 1:1 time: 22 minutes (1 unit: 8-22 mins) Manual Therapy ([id number]): 1:1 time: 10 minutes (1 unit: 8-22 mins) Gait Training (35059): 1:1 time: 12 minutes (1 unit: 8-22 mins) Total time: 44 minutes Kat Milton PT CNTHERAPY Observed: 10/13/2017 Status: COMPLETED Source: [place] 10:30 AM [facility] [place] REPOSITORY OT/PT/Speech Visit (PTWS) RENAE ELIZONDO ([id number]) 1955 F Date Time Provider Department 10/13/17 10:30 AM KAT MILTON (PT) PTWS Date Time Provider Department Center 10/13/2017 10:30 AM [id number] MILTON (PT) PTWS [facility] Reason for Visit: PT Progress Note [1596] Primary Visit Diagnosis:Arthritis, midfoot [M19.079] Allergies As of Date: 10/13/2017 Noted Allergy Reaction ADHESIVE TAPE (ROSINS) 02/13/2006 2 - Rash Comments: tore skin/blisters MORPHINE 02/05/2006 5 - Intolerance Comments: vomiting, shaking. NSAIDS (NON-STEROIDAL ANTI-INFLAM*10/05/2014 11 - Vomiting VASOTEC (ENALAPRIL MALEATE) 09/08/2008 Comments: nausea/doesn't work Date Reviewed: 10/08/2017 Reviewed by: Carmen Hood Ma - Fully Assessed Prescriptions as of 10/13/2017 Sig: HYDROXYCHLOROQUINE 200 MG TAB* TAKE ONE TABLET BY MOUTH TWIC* LEFLUNOMIDE 20 MG TABLET Take 1 tablet by mouth once d* DICLOFENAC 1 % TOPICAL GEL apply topically 4 grams to fo* CHOLECALCIFEROL (VITAMIN D3) * Take 2,000 Units by mouth onc* PROLIA SUBCUTANEOUS Inject subcutaneously once e* CELECOXIB 200 MG CAPSULE Take 200 mg by mouth as neede* MAGNESIUM OXIDE 500 MG TABLET Taking 250mg. Take two tablet* ACETAMINOPHEN 500 MG TABLET Take 500 mg by mouth every 8 * CPAP CHIN STRAP, USED WITH CPAP DE* FLUTICASONE 50 MCG/ACTUATION * Use 1 [place] in each nostril d* FERROUS SULFATE 325 MG (65 MG* Take 325 mg by mouth daily wi* ASCORBIC ACID (VITAMIN C) 500* Take 500 mg by mouth three ti* CPAP AutoPAP 10-20 cmH2O, suitable* CYCLOBENZAPRINE 10 MG TABLET LEVOTHYROXINE 50 MCG TABLET Take 50 mcg by mouth daily be* CLOBETASOL 0.05 % TOPICAL CRE* as directed * GABAPENTIN 300 MG CAPSULE Take 300 mg by mouth three ti* * PROMETHAZINE 25 MG TABLET Take one(1) tablet every four* * ATIVAN 1 MG TABLET takes 1/2 tab as needed * FENTANYL 50 MCG/HR TRANSDERMA* Apply as directed. Change pat* * B COMPLEX 1 TABLET Take one(1) tablet daily. * MULTIVITAMIN,TX-MINERALS TABL* 1 tab daily Progress Notes: Kat Milton PT 10/22/2017 9:06 AM Signed Episode Visit Count: 22 Therapist That Will Oversee The Plan Of Care: Kat Milton Start of Care Date: 07/14/17 Onset Date: 02/17/17 Patient Identified by Name and Date of : Yes REHABILITATION AND SPORTS THERAPY PHYSICAL THERAPY PROGRESS REPORT PLAN OF CARE UPDATE: Assessment: Renae Elizondo exhibits improvements in AROM, strength and gait. She continues to be limited with fluctuating edema, standing, walking, walking in the community and stair negotiation. She is progressing slower than expected towards her therapy goals as demonstrated by: pain levels, documented subjective information on progress and documented objective information regarding gait, ADL's, strength and range of motion. She will benefit from continued skilled therapy requiring AROM, strengthening, edema management and gait instruction in order to further improve L LE AROM, strength, edema and gait and allow pt to safely ambulate without use of walking boot. Functional gains: Improved gait quality Increased endurance / activity tolerance Increased independence with HEP Increased ROM Increased strength Decreased intensity of pain Decreased frequency of pain Goals for Episode of Care: created on 07/14/17 through 09/13/17 Goals updated on 10/13/2017. [place] in home exercise program. (Met) Patient will decrease pain rating by 2 points to meet minimal clinical important difference for numeric pain rating scale. (Partially Met)- inconsistent Patient will increase active ROM of L ankle to allow pt to improved performance of ADLs and to normalize gait mechanics / gait pattern . (Partially Met)- progressing Patient will increase strength of L LE to 4+ to 5/5 to allow for return to prior functional status and normalized gait mechanics. (Partially Met)- progressing Perform community ambulation, stair negotiation and undisturbed sleep with decreased report of symptoms/pain in 8 weeks. (Partially Met) Demonstrate improvement on functional score: Patient will increase his/her score on the Lower Extremity Functional Scale by at least 9 points to indicate a Minimal Clinical Important Difference. (Not Met) Normal gait. (Not Met) Planned Interventions, Frequency, and Duration: 2x/week, 4 weeks Total Number of Visits Planned: 8 Patient to be seen for PLAN FOR NEXT VISIT: Progress strengthening and weight bearing /gait activities. SUBJECTIVE: Pt reports she was walking outside and did not have her boot on tight and fell.She notes she was out back where the ground is more unstable. She denies injury to her ankle, but feels she twisted her low back a little. Pt did not bring her other shoe today (she is wearing the boot and forgot to grab it before she left). She notes She is ambulating in the house with her shoe for a little longer at a time, and in the community is walking up to an hour when uses boot and a shopping cart.Stair negotiation is still difficult for her. Most of the time she can sleep undisturbed, but at times will still be awakened d/t pain and have to reposition her foot to get back to sleep. Pain Score: 6/10 Pain Location: Ankle - Left (R low back also) Description: Sharp;Stiffness Post Treatment Pain Score: 6/10 Pain Location: Foot - Left Post Treatment Pain Description: Aching;Dull (less sharp) OBJECTIVE MEASURES WITH LEVEL OF FUNCTION: Ankle Observations Comments: 2 above mall: L 24; B mall: L 26.5; heel: L 34.5; midfoot: L 27; MTP: L 26 (measured pre-treatment). Gait Gait Observation: Pt ambulates independently without assistive device with boot on L LE. Pt did not bring her other shoe to evaluate ambulation in shoes today, though has demonstrated improvements in gait pattern since previous progress update. LE AROM L Ankle Dorsiflexion: 9 Degrees L Ankle Plantar Flexion: 40 Degrees L Ankle Inversion: 15 L Ankle Eversion: 15 LE Strength L Ankle Dorsiflexion (L4): 4+/5 L Ankle Plantar Flexion: 4+/5 L Ankle Inversion: (pain) L Ankle Eversion: (pain) TREATMENT: Therapeutic Exercise: 1: AROM ankle pumps x 20 reps 2: AROM ankle inv/ever x 20 reps 3: ankle alphabet x1 4: Seated BAPS PWB left ball 2 and pegs, A/P, lateral and cw and ccw 2x10 each. 5: Left towel toe scrunches 2x15. Skilled Intervention: Patient was educated in proper exercise technique and purpose for exercises. Reviewed and educated patient on additions/changes for home exercise program Skilled judgment was provided in selection of appropriate interventions. Correct performance of therapeutic exercises was facilitated with verbal and visual cuing. Patient education as noted. Objective measurements and reassessment. Manual Therapy: 1: Retrograde massage including MLD left foot to knee x 10 minutes. Skilled Intervention: Manual skills to improve joint mobility, lymphodynamics, ROM, and decrease pain. Utilized anatomy knowledge of the therapist, and assessment of patient's response to intervention. Gait Trainin: Gait with boot x 40 ft x 2. Skilled Intervention: Facilitated proper gait cycle with the use of verbal and visual cues for correction of gait deviations identified in the objective section above. Billing: [facility]: Therapeutic Exercise ([id number]): 1:1 time: 22 minutes (1 unit: 8-22 mins) Manual Therapy (33329): 1:1 time: 10 minutes (1 unit: 8-22 mins) Gait Training (15872): 1:1 time: 12 minutes (1 unit: 8-22 mins) Total time: 44 minutes Kat Milton PT PROGRESS Observed: 10/10/2017 Status: COMPLETED Source: [place] 1:56 PM [facility] REPOSITORY HNO ID: [id number] Author: Kat (Pt) Yoan Service: (none) Author Type: Physical Therapist Type: Progress Notes Filed: 10/10/2017 2:45 PM Note Text: Episode Visit Count: 21 Therapist That Will Oversee The Plan Of Care: Kat Milton Start of Care Date: 07/14/17 Onset Date: 02/17/17 Patient Identified by Name and Date of : Yes REHABILITATION AND SPORTS THERAPY PHYSICAL THERAPY TREATMENT NOTE ASSESSMENT: Reane Elizondo demonstrated improvements in improved control and ability to complete full motion on the BAPS board and improved gait with straight cane today. The patient will continue to benefit from continued skilled physical therapy for AROM, edema control and gait. PLAN FOR NEXT VISIT: POC update SUBJECTIVE: Pt reports pain is less today. Notes ankle feels stiff, but not too bad. States she has been doing the toe scrunches exercise more at home. Pain Score: 5/10 Pain Location: Ankle - Left Description: Aching Post Treatment Pain Score: 6/10 Pain Location: Foot - Left OBJECTIVE MEASURES WITH LEVEL OF FUNCTION: Ankle Observations Comments: 2 above mall: L 23.5; B mall: L 26; heel: L 34.5; midfoot: L 25.5; MTP: L 25.5 (measured pre-treatment). TREATMENT: Therapeutic Exercise: 1: AROM ankle pumps x 20 reps 2: AROM ankle inv/ever x 20 reps 3: ankle alphabet x1 4: Seated BAPS PWB left ball 2 and pegs, A/P, lateral and cw and ccw 2x10 each. 5: Left towel toe scrunches 2x15. Skilled Intervention: Patient was educated in proper exercise technique and purpose for exercises. Reviewed and educated patient on additions/changes for home exercise program and pt to continue with current HEP. Skilled judgment was provided in selection of appropriate interventions. Correct performance of therapeutic exercises was facilitated with verbal and visual cuing. Patient education as noted. Gait Trainin: Gait with st cane (2x60 ft) with emphasis on symmetrical step length. 2: Side stepping in // bars back and forth x 1 each direction. Skilled Intervention: Facilitated proper gait cycle with the use of verbal cues for correction of gait deviations identified in the objective section above. Skilled judgment used to assess proper sizing and use of assistive device. Education provided to patient regarding the proper sequence for level surface and truning negotiation. Deferred manual techniques today for increased time of gait training. Billing: [facility]: Therapeutic Exercise ([id number]): 1:1 time: 22 minutes (1 unit: 8-22 mins) Gait Training (02773): 1:1 time: 20 minutes (1 unit: 8-22 mins) Total time: 42 minutes Kat Milton PT CNTHERAPY Observed: 10/10/2017 Status: COMPLETED Source: [place] 1:45 PM [facility] [place] REPOSITORY OT/PT/Speech Visit (PTWS) RENAE ELIZONDO ([id number]) 1955 F Date Time Provider Department 10/10/17 1:45 PM KAT MILTON (PT) PTWS Date Time Provider Department Center 10/10/2017 1:45 PM [id number] MILTON (PT) PTWS [facility] Reason for Visit: Physical Therapy [503] Primary Visit Diagnosis:Arthritis, midfoot [M19.079] Allergies As of Date: 10/10/2017 Noted Allergy Reaction ADHESIVE TAPE (ROSINS) 02/13/2006 2 - Rash Comments: tore skin/blisters MORPHINE 02/05/2006 5 - Intolerance Comments: vomiting, shaking. NSAIDS (NON-STEROIDAL ANTI-INFLAM*10/05/2014 11 - Vomiting VASOTEC (ENALAPRIL MALEATE) 09/08/2008 Comments: nausea/doesn't work Date Reviewed: 10/08/2017 Reviewed by: Carmen Hood Ma - Fully Assessed Prescriptions as of 10/10/2017 Sig: HYDROXYCHLOROQUINE 200 MG TAB* TAKE ONE TABLET BY MOUTH TWIC* LEFLUNOMIDE 20 MG TABLET Take 1 tablet by mouth once d* DICLOFENAC 1 % TOPICAL GEL apply topically 4 grams to fo* CHOLECALCIFEROL (VITAMIN D3) * Take 2,000 Units by mouth onc* PROLIA SUBCUTANEOUS Inject subcutaneously once e* CELECOXIB 200 MG CAPSULE Take 200 mg by mouth as neede* MAGNESIUM OXIDE 500 MG TABLET Taking 250mg. Take two tablet* ACETAMINOPHEN 500 MG TABLET Take 500 mg by mouth every 8 * CPAP CHIN STRAP, USED WITH CPAP DE* FLUTICASONE 50 MCG/ACTUATION * Use 1 [place] in each nostril d* FERROUS SULFATE 325 MG (65 MG* Take 325 mg by mouth three ti* ASCORBIC ACID (VITAMIN C) 500* Take 500 mg by mouth three ti* CPAP AutoPAP 10-20 cmH2O, suitable* CYCLOBENZAPRINE 10 MG TABLET LEVOTHYROXINE 50 MCG TABLET Take 50 mcg by mouth daily be* CLOBETASOL 0.05 % TOPICAL CRE* as directed * GABAPENTIN 300 MG CAPSULE Take 300 mg by mouth three ti* * PROMETHAZINE 25 MG TABLET Take one(1) tablet every four* * ATIVAN 1 MG TABLET takes 1/2 tab as needed * FENTANYL 50 MCG/HR TRANSDERMA* Apply as directed. Change pat* * B COMPLEX 1 TABLET Take one(1) tablet daily. * MULTIVITAMIN,TX-MINERALS TABL* 1 tab daily Progress Notes: Kat Milton PT 10/10/2017 2:45 PM Signed Episode Visit Count: 21 Therapist That Will Oversee The Plan Of Care: Kat Milton Start of Care Date: 07/14/17 Onset Date: 02/17/17 Patient Identified by Name and Date of : Yes REHABILITATION AND SPORTS THERAPY PHYSICAL THERAPY TREATMENT NOTE ASSESSMENT: Renea Elizondo demonstrated improvements in improved control and ability to complete full motion on the BAPS board and improved gait with straight cane today. The patient will continue to benefit from continued skilled physical therapy for AROM, edema control and gait. PLAN FOR NEXT VISIT: POC update SUBJECTIVE: Pt reports pain is less today. Notes ankle feels stiff, but not too bad. States she has been doing the toe scrunches exercise more at home. Pain Score: 5/10 Pain Location: Ankle - Left Description: Aching Post Treatment Pain Score: 6/10 Pain Location: Foot - Left OBJECTIVE MEASURES WITH LEVEL OF FUNCTION: Ankle Observations Comments: 2 above mall: L 23.5; B mall: L 26; heel: L 34.5; midfoot: L 25.5; MTP: L 25.5 (measured pre-treatment). TREATMENT: Therapeutic Exercise: 1: AROM ankle pumps x 20 reps 2: AROM ankle inv/ever x 20 reps 3: ankle alphabet x1 4: Seated BAPS PWB left ball 2 and pegs, A/P, lateral and cw and ccw 2x10 each. 5: Left towel toe scrunches 2x15. Skilled Intervention: Patient was educated in proper exercise technique and purpose for exercises. Reviewed and educated patient on additions/changes for home exercise program and pt to continue with current HEP. Skilled judgment was provided in selection of appropriate interventions. Correct performance of therapeutic exercises was facilitated with verbal and visual cuing. Patient education as noted. Gait Trainin: Gait with st cane (2x60 ft) with emphasis on symmetrical step length. 2: Side stepping in // bars back and forth x 1 each direction. Skilled Intervention: Facilitated proper gait cycle with the use of verbal cues for correction of gait deviations identified in the objective section above. Skilled judgment used to assess proper sizing and use of assistive device. Education provided to patient regarding the proper sequence for level surface and truning negotiation. Deferred manual techniques today for increased time of gait training. Billing: [facility]: Therapeutic Exercise ([id number]): 1:1 time: 22 minutes (1 unit: 8-22 mins) Gait Training (27145): 1:1 time: 20 minutes (1 unit: 8-22 mins) Total time: 42 minutes Kat Milton, PT PROGRESS Observed: 10/08/2017 Status: COMPLETED Source: [place] 10:14 AM [facility] [place] REPOSITORY HNO ID: [id number] Author: Karina De Leon Service: (none) Author Type: Physician Type: Progress Notes Filed: 10/08/2017 10:15 AM Note Text: October 08, 2017 HPI: Renae Elizondo is following up for left TN fusion. Pain Descriptors: Duration: several mos Severity: mild Quality: dull ache Location: left foot Context: worse with activity Modifying Factors: Improved with boot Supporting Subjective Information Below: Estimated body mass index is 40.82 kg/m? as calculated from the following: Height as of 09/05/17: 152.4 cm (5'). Weight as of 09/05/17: 94.8 kg (209 lb). Past Medical History PAST MEDICAL HISTORY Diagnosis Date - Anemia - Hypothyroidism - Malignant neoplasm of breast (female), unspecified site - Obstructive sleep apnea - Other and unspecified diseases of upper respiratory tract - RA (rheumatoid arthritis) (HCC) - S/P gastric bypass - Sarcoidosis (HCC) Surgical History SURGICALHX@ Family History @[facility]@ Medications: Current Outpatient Prescriptions: hydroxychloroquine (PLAQUENIL) 200 mg tablet TAKE ONE TABLET BY MOUTH TWICE DAILY leflunomide (ARAVA) 20 mg tablet Take 1 tablet by mouth once daily. diclofenac sodium (VOLTAREN) 1 % topical gel apply topically 4 grams to foot four times a day cholecalciferol (VITAMIN D-3) 2,000 unit tablet Take 2,000 Units by mouth once daily. DENOSUMAB (PROLIA SUBCUTANEOUS) Inject subcutaneously once every 6 months. celecoxib (CELEBREX) 200 mg capsule Take 200 mg by mouth as needed. Magnesium Oxide 500 mg tab Taking 250mg. Take two tablets by mouth once daily. acetaminophen (TYLENOL EXTRA STRENGTH) 500 mg tablet Take 500 mg by mouth every 8 hours as needed. CPAP CHIN STRAP, USED WITH CPAP DEVICE fluticasone (FLONASE) 50 mcg/actuation nasal spray Use 1 [place] in each nostril daily at bedtime. ferrous sulfate 325 mg (65 mg iron) tablet Take 325 mg by mouth three times daily with meals. ascorbic acid (VITAMIN C) 500 mg tablet Take 500 mg by mouth three times daily. CPAP AutoPAP 10-20 cmH2O, suitable mask, humidity, filters. Lifetime supplies. Dx: [phone]. Fax compliance rpt to [phone] in 4-6 weeks. cyclobenzaprine (FLEXERIL) 10 mg tablet levothyroxine (LEVOTHROID) 50 mcg tablet Take 50 mcg by mouth daily before breakfast. CLOBETASOL 0.05 % cream as directed gabapentin 300 mg capsule Take 300 mg by mouth three times daily. PROMETHAZINE 25 MG TAB Take one(1) tablet every four(4) to six(6) hours as needed for nausea. lorazepam(ATIVAN 1 MG TAB) takes 1/2 tab as needed fentanyl 50 mcg/hr TRANSDERM. PT72 Apply as directed. Change patch every 3 days. B COMPLEX 1 TAB Take one(1) tablet daily. MULTIVITAMIN,TX-MINERALS TAB 1 tab daily No current facility-administered medications for this visit. Allergies: Adhesive Tape (Rosins); Morphine; Nsaids (Non-Steroidal Anti-Inflammatory Drug); Vasotec [Enalapril Maleate] Review Of Systems GENERAL:Negative for malaise, significant weight loss and fever HEENT:Negative for frequent or significant headaches, significant changes in vision or vision problems, significant ear problems or hearing loss, nasal discharge or nose bleeds and sore throat, difficulty swallowing, mouth lesions NECK:Negative for lumps, goiter, pain and significant neck swelling RESPIRATORY: Negative for cough, wheezing and shortness of breath CARDIOVASCULAR: Negative for chest pain, leg swelling and palpitations GASTROINTESTINAL: Negative for abdominal discomfort, blood in stools or black stools and change in bowel habits GENITOURINARY: Negative for dysuria, frequency and incontinence MUSCULOSKELETAL: Negative for joint pain or swelling, back pain, and muscle pain. NEUROLOGIC:Negative for focal numbness or weakness, headaches and dizziness. SKIN:Negative for lesions, rash, and itching. PSYCHIATRIC: Negative for sleep disturbance, mood disorder and recent psychosocial stressors. HEMATOLOGIC/LYMPHATIC/IMMUNOLOGIC:Negative for prolonged bleeding, bruising easily, and swollen nodes. ENDOCRINE: Negative for cold or heat intolerance, polyuria, polydipsia and goiter. Physical Exam: Basic physical examination reveals the patient to be in no acute distress. The patient is alert and oriented. Head is atraumatic, normocephalic. Neck ROM grossly intact. Mucous membranes are moist. Eyes, ears, and nose are normal in appearance. Hearing is grossly intact. Breathing is unlabored with grossly normal chest motion. Limited Upper Extremity Exam: Shoulders with grossly intact ROM and strength, no obvious deformity. Elbows with grossly intact ROM and strength, no obvious deformity. Hand and wrist with grossly intact ROM and strength, no obvious deformity. Focused orthopaedic examination reveals the following: Mild swelling Healed incision Imaging: hardware intact Fusion appears complete Assessment and Plan: Left TN fusion Wean boot PT Return to clinic: prn X-Ray's at next visit: Yes PCP: Elisa Baxter MD [address] [place] [address] [facility] [id number] FELLOW / RESIDENT: No fellow or resident assisted in this office visit. At least 50% of the duration of this visit was spent performing direct [id number] counseling. Karina De Leon MD PROGRESS Observed: 10/08/2017 Status: COMPLETED Source: [place] 9:46 AM [facility] [place] [facility] REPOSITORY HNO ID: [id number] Author: Aniket (Neelima Kaufman Service: (none) Author Type: Kindergarten Paraprofessional Type: Progress Notes Filed: 10/08/2017 9:46 AM Note Text: Radiology Service Progress Note PATIENT NAME: Renae Elizondo DATE OF SERVICE: October 08, 2017 TIME: 9:46 AM PATIENT IDENTITY VERIFICATION COMPLETED USING TWO (2) METHODS: Patient confirmed name verbally and Date of . PATIENT GENDER DATA: Female. status: : No status: NO. PATIENT RELEVANT IMPLANT DATA REVIEWED: Not Applicable RADIOLOGY DEPARTMENT: General X-ray: Exam(s) Completed: Lower Extremity X-Ray(s): Ankle, Left and Foot, Left: PERIPHERAL IV DATA: Not applicable SIGNED BY: RT Cha October 08, 2017 9:46 AM XR FOOT 3V AP/LAT/OBL Observed: 10/08/2017 Status: F Source: [facility] 9:45 AM [facility] [place] REPOSITORY * * *Final Report* * * DATE OF EXAM: Oct 08 2017 9:45AM AOX [id number] - XR FOOT 3V AP/LAT/OBL LT / PROCEDURE REASON: Post-traumatic osteoarthritis, left ankle and foot * * * * Physician Interpretation * * * * EXAMINATION: XR FOOT 3V AP/LAT/OBL LT, XR ANKLE 3V AP/LAT/OBL LT HISTORY: post op follow up exam Post-traumatic osteoarthritis, left ankle and foot . TECHNIQUE: XR FOOT 3V AP/LAT/OBL LT, XR ANKLE 3V AP/LAT/OBL LT Laterality: LEFT Number of different views (projections): 3 M: XB_1 COMPARISON: 07/02/2017 RESULT: Plate and screw fixation of the talonavicular joint with intact appearing surgical hardware and no findings of loosening. Small calcaneal enthesophytes. Mild hallux valgus deformity. No acute fracture or dislocation. There are no bony erosions. Ankle mortise maintained. IMPRESSION: Postoperative changes of the left talonavicular joint. 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: [facility] Transcribe Date/Time: Oct 08 2017 10:48A Dictated by : BRIAN ARCHIBALD MD This examination was interpreted and the report reviewed and electronically signed by: BRIAN ARCHIBALD MD on Oct 08 2017 10:49AM EST [id number] XR ANKLE 3V AP/LAT/OBL Observed: 10/08/2017 Status: F Source: [facility] 9:44 AM [facility] [place] REPOSITORY * * *Final Report* * * DATE OF EXAM: Oct 08 2017 9:44AM AOX [id number] - XR ANKLE 3V AP/LAT/OBL LT / PROCEDURE REASON: Pain in left ankle and joints of left foot * * * * Physician Interpretation * * * * EXAMINATION: XR FOOT 3V AP/LAT/OBL LT, XR ANKLE 3V AP/LAT/OBL LT HISTORY: post op follow up exam Post-traumatic osteoarthritis, left ankle and foot . TECHNIQUE: XR FOOT 3V AP/LAT/OBL LT, XR ANKLE 3V AP/LAT/OBL LT Laterality: LEFT Number of different views (projections): 3 M: XB_1 COMPARISON: 07/02/2017 RESULT: Plate and screw fixation of the talonavicular joint with intact appearing surgical hardware and no findings of loosening. Small calcaneal enthesophytes. Mild hallux valgus deformity. No acute fracture or dislocation. There are no bony erosions. Ankle mortise maintained. IMPRESSION: Postoperative changes of the left talonavicular joint. 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: [employer] Transcribe Date/Time: Oct 08 2017 10:48A Dictated by : BRIAN ARCHIBALD MD This examination was interpreted and the report reviewed and electronically signed by: BRIAN ARCHIBALD MD on Oct 08 2017 10:49AM EST [id number] CNOV Observed: 10/08/2017 Status: COMPLETED Source: [facility] 9:40 AM [facility] [place] REPOSITORY Office Visit (ORFTMN) RENAE ELIZONDO ([id number]) 1955 F Date Time Provider Department 10/08/17 9:40 AM KARINA DE LEON During your visit today, we recorded the following information about you: Karina De Leon MD 10/08/2017 10:15 AM Signed October 08, 2017 HPI: Renae Elizondo is following up for left TN fusion. Pain Descriptors: Duration: several mos Severity: mild Quality: dull ache Location: left foot Context: worse with activity Modifying Factors: Improved with boot Supporting Subjective Information Below: Estimated body mass index is 40.82 kg/m? as calculated from the following: Height as of 09/05/17: 152.4 cm (5'). Weight as of 09/05/17: 94.8 kg (209 lb). Past Medical History PAST MEDICAL HISTORY Diagnosis Date - Anemia - Hypothyroidism - Malignant neoplasm of breast (female), unspecified site - Obstructive sleep apnea - Other and unspecified diseases of upper respiratory tract - RA (rheumatoid arthritis) (HCC) - S/P gastric bypass - Sarcoidosis (HCC) Surgical History SURGICALHX@ Family History @[facility]@ Medications: Current Outpatient Prescriptions: hydroxychloroquine (PLAQUENIL) 200 mg tablet TAKE ONE TABLET BY MOUTH TWICE DAILY leflunomide (ARAVA) 20 mg tablet Take 1 tablet by mouth once daily. diclofenac sodium (VOLTAREN) 1 % topical gel apply topically 4 grams to foot four times a day cholecalciferol (VITAMIN D-3) 2,000 unit tablet Take 2,000 Units by mouth once daily. DENOSUMAB (PROLIA SUBCUTANEOUS) Inject subcutaneously once every 6 months. celecoxib (CELEBREX) 200 mg capsule Take 200 mg by mouth as needed. Magnesium Oxide 500 mg tab Taking 250mg. Take two tablets by mouth once daily. acetaminophen (TYLENOL EXTRA STRENGTH) 500 mg tablet Take 500 mg by mouth every 8 hours as needed. CPAP CHIN STRAP, USED WITH CPAP DEVICE fluticasone (FLONASE) 50 mcg/actuation nasal spray Use 1 [place] in each nostril daily at bedtime. ferrous sulfate 325 mg (65 mg iron) tablet Take 325 mg by mouth three times daily with meals. ascorbic acid (VITAMIN C) 500 mg tablet Take 500 mg by mouth three times daily. CPAP AutoPAP 10-20 cmH2O, suitable mask, humidity, filters. Lifetime supplies. Dx: 327.23. Fax compliance rpt to [phone] in 4-6 weeks. cyclobenzaprine (FLEXERIL) 10 mg tablet levothyroxine (LEVOTHROID) 50 mcg tablet Take 50 mcg by mouth daily before breakfast. CLOBETASOL 0.05 % cream as directed gabapentin 300 mg capsule Take 300 mg by mouth three times daily. PROMETHAZINE 25 MG TAB Take one(1) tablet every four(4) to six(6) hours as needed for nausea. lorazepam(ATIVAN 1 MG TAB) takes 1/2 tab as needed fentanyl 50 mcg/hr TRANSDERM. PT72 Apply as directed. Change patch every 3 days. B COMPLEX 1 TAB Take one(1) tablet daily. MULTIVITAMIN,TX-MINERALS TAB 1 tab daily No current facility-administered medications for this visit. Allergies: Adhesive Tape (Rosins); Morphine; Nsaids (Non-Steroidal Anti-Inflammatory Drug); Vasotec [Enalapril Maleate] Review Of Systems GENERAL:Negative for malaise, significant weight loss and fever HEENT:Negative for frequent or significant headaches, significant changes in vision or vision problems, significant ear problems or hearing loss, nasal discharge or nose bleeds and sore throat, difficulty swallowing, mouth lesions NECK:Negative for lumps, goiter, pain and significant neck swelling RESPIRATORY: Negative for cough, wheezing and shortness of breath CARDIOVASCULAR: Negative for chest pain, leg swelling and palpitations GASTROINTESTINAL: Negative for abdominal discomfort, blood in stools or black stools and change in bowel habits GENITOURINARY: Negative for dysuria, frequency and incontinence MUSCULOSKELETAL: Negative for joint pain or swelling, back pain, and muscle pain. NEUROLOGIC:Negative for focal numbness or weakness, headaches and dizziness. SKIN:Negative for lesions, rash, and itching. PSYCHIATRIC: Negative for sleep disturbance, mood disorder and recent psychosocial stressors. HEMATOLOGIC/LYMPHATIC/IMMUNOLOGIC:Negative for prolonged bleeding, bruising easily, and swollen nodes. ENDOCRINE: Negative for cold or heat intolerance, polyuria, polydipsia and goiter. Physical Exam: Basic physical examination reveals the patient to be in no acute distress. The patient is alert and oriented. Head is atraumatic, normocephalic. Neck ROM grossly intact. Mucous membranes are moist. Eyes, ears, and nose are normal in appearance. Hearing is grossly intact. Breathing is unlabored with grossly normal chest motion. Limited Upper Extremity Exam: Shoulders with grossly intact ROM and strength, no obvious deformity. Elbows with grossly intact ROM and strength, no obvious deformity. Hand and wrist with grossly intact ROM and strength, no obvious deformity. Focused orthopaedic examination reveals the following: Mild swelling Healed incision Imaging: hardware intact Fusion appears complete Assessment and Plan: Left TN fusion Wean boot PT Return to clinic: prn X-Ray's at next visit: Yes PCP: Elisa Baxter MD [address] [facility] [address] [facility] [id number] FELLOW / RESIDENT: No fellow or resident assisted in this office visit. At least 50% of the duration of this visit was spent performing direct [id number] counseling. Karina De Leon MD Referring Provider: KARINA DE LEON [[id number]] Allergies As of Date: 10/08/2017 Noted Allergy Reaction ADHESIVE TAPE (ROSINS) 02/13/2006 2 - Rash Comments: tore skin/blisters MORPHINE 02/05/2006 5 - Intolerance Comments: vomiting, shaking. NSAIDS (NON-STEROIDAL ANTI-INFLAM*10/05/2014 11 - Vomiting VASOTEC (ENALAPRIL MALEATE) 09/08/2008 Comments: nausea/doesn't work Date Reviewed: 10/08/2017 Reviewed by: Carmen Hood Ma - Fully Assessed Reason for Visit: Recheck [92] Primary Visit Diagnosis:Arthritis, midfoot [M19.079] Prescriptions as of 10/08/2017 Sig: HYDROXYCHLOROQUINE 200 MG TAB* TAKE ONE TABLET BY MOUTH TWIC* LEFLUNOMIDE 20 MG TABLET Take 1 tablet by mouth once d* DICLOFENAC 1 % TOPICAL GEL apply topically 4 grams to fo* CHOLECALCIFEROL (VITAMIN D3) * Take 2,000 Units by mouth onc* PROLIA SUBCUTANEOUS Inject subcutaneously once e* CELECOXIB 200 MG CAPSULE Take 200 mg by mouth as neede* MAGNESIUM OXIDE 500 MG TABLET Taking 250mg. Take two tablet* ACETAMINOPHEN 500 MG TABLET Take 500 mg by mouth every 8 * CPAP CHIN STRAP, USED WITH CPAP DE* FLUTICASONE 50 MCG/ACTUATION * Use 1 [place] in each nostril d* FERROUS SULFATE 325 MG (65 MG* Take 325 mg by mouth three ti* ASCORBIC ACID (VITAMIN C) 500* Take 500 mg by mouth three ti* CPAP AutoPAP 10-20 cmH2O, suitable* CYCLOBENZAPRINE 10 MG TABLET LEVOTHYROXINE 50 MCG TABLET Take 50 mcg by mouth daily be* CLOBETASOL 0.05 % TOPICAL CRE* as directed * GABAPENTIN 300 MG CAPSULE Take 300 mg by mouth three ti* * PROMETHAZINE 25 MG TABLET Take one(1) tablet every four* * ATIVAN 1 MG TABLET takes 1/2 tab as needed * FENTANYL 50 MCG/HR TRANSDERMA* Apply as directed. Change pat* * B COMPLEX 1 TABLET Take one(1) tablet daily. * MULTIVITAMIN,TX-MINERALS TABL* 1 tab daily Problem List As Of Date 10/08/2017 Noted Resolved LUMP OR MASS IN BREAST [N63.0] INVALID FOR* MALIG NEOPLASM BREAST-CENTRAL [C50.119] INVALID FOR* SEROMA, POST OP [CXL3340] INVALID FOR*09/30/2016 ANEMIA NOS [D64.9] INVALID FOR* Sacroiliac joint pain [M53.3] INVALID FOR* Benign neoplasm of skin of trunk, except scrotu*INVALID FOR* HARRISON (obstructive sleep apnea) AHI 13, but with *INVALID FOR* More... RLS (restless legs syndrome) [G25.81] INVALID FOR* Low ferritin level [R79.0] INVALID FOR* Sarcoidosis (HCC) [D86.9] INVALID FOR* Nasal congestion, nocturnal. 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 Pain in finger of right hand [M79.644] INVALID FOR* More... 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 Obesity, Class III, BMI >= 40 [E66.01] INVALID FOR* Encounter Status:Closed by KARINA DE LEON MD on 10/08/17 CNTHERAPY Observed: 10/06/2017 Status: COMPLETED Source: [place] 3:30 PM [facility] [place] REPOSITORY OT/PT/Speech Visit (PTWS) RENAE ELIZONDO ([id number]) 1955 F Date Time Provider Department 10/06/17 3:30 PM KAT MILTON (PT) PTWS Date Time Provider Department Center 10/06/2017 3:30 PM [id number] MILTON (PT) PTWS [facility] Reason for Visit: Physical Therapy [503] Primary Visit Diagnosis:Arthritis, midfoot [M19.079] Allergies As of Date: 10/06/2017 Noted Allergy Reaction ADHESIVE TAPE (ROSINS) 02/13/2006 2 - Rash Comments: tore skin/blisters MORPHINE 02/05/2006 5 - Intolerance Comments: vomiting, shaking. NSAIDS (NON-STEROIDAL ANTI-INFLAM*10/05/2014 11 - Vomiting VASOTEC (ENALAPRIL MALEATE) 09/08/2008 Comments: nausea/doesn't work Date Reviewed: 09/15/2017 Reviewed by: Irene De Paz (Pa) - Fully Assessed Prescriptions as of 10/06/2017 Sig: HYDROXYCHLOROQUINE 200 MG TAB* TAKE ONE TABLET BY MOUTH TWIC* LEFLUNOMIDE 20 MG TABLET Take 1 tablet by mouth once d* DICLOFENAC 1 % TOPICAL GEL apply topically 4 grams to fo* CHOLECALCIFEROL (VITAMIN D3) * Take 2,000 Units by mouth onc* PROLIA SUBCUTANEOUS Inject subcutaneously once e* CELECOXIB 200 MG CAPSULE Take 200 mg by mouth as neede* MAGNESIUM OXIDE 500 MG TABLET Taking 250mg. Take two tablet* ACETAMINOPHEN 500 MG TABLET Take 500 mg by mouth every 8 * CPAP CHIN STRAP, USED WITH CPAP DE* FLUTICASONE 50 MCG/ACTUATION * Use 1 [place] in each nostril d* FERROUS SULFATE 325 MG (65 MG* Take 325 mg by mouth three ti* ASCORBIC ACID (VITAMIN C) 500* Take 500 mg by mouth three ti* CPAP AutoPAP 10-20 cmH2O, suitable* CYCLOBENZAPRINE 10 MG TABLET LEVOTHYROXINE 50 MCG TABLET Take 50 mcg by mouth daily be* CLOBETASOL 0.05 % TOPICAL CRE* as directed * GABAPENTIN 300 MG CAPSULE Take 300 mg by mouth three ti* * PROMETHAZINE 25 MG TABLET Take one(1) tablet every four* * ATIVAN 1 MG TABLET takes 1/2 tab as needed * FENTANYL 50 MCG/HR TRANSDERMA* Apply as directed. Change pat* * B COMPLEX 1 TABLET Take one(1) tablet daily. * MULTIVITAMIN,TX-MINERALS TABL* 1 tab daily Progress Notes: Kat Milton PT 10/06/2017 7:17 PM Signed Episode Visit Count: 20 Therapist That Will Oversee The Plan Of Care: Kat Milton Start of Care Date: 07/14/17 Onset Date: 02/17/17 Patient Identified by Name and Date of : Yes REHABILITATION AND SPORTS THERAPY PHYSICAL THERAPY TREATMENT NOTE ASSESSMENT: Renae Elizondo demonstrated improvements in reduction of edema at end of session and improved gait with straight cane and shoe (without the boot). The patient will continue to benefit from continued skilled physical therapy for AROM, edema control and gait instruction. PLAN FOR NEXT VISIT: POC update in next two visits. SUBJECTIVE: Pt states she is feeling achy all over today d/t the increased heat and humidity. She reports increased pain and swelling L ankle. She notes she tried to cancel last session, but could not get through on the phone , but had the stomach flu. Pain Score: 6/10 (spikes with certain movements) Pain Location: Ankle - Left Description: Aching Post Treatment Pain Score: 7/10 Pain Location: Foot - Left Post Treatment Pain Description: (It feels more calm.) OBJECTIVE MEASURES WITH LEVEL OF FUNCTION: Posture / Alignment LE Observations: Visible increase in edema L foot and ankle at beginning of session. Reduction was observed (at dorsum of foot and medial and lateral foot and ankle areas) at end of session. Gait Gait Observation: Pt demonstrated improved gait pattern with straight cane and shoe (without the walking boot). Step-to pattern with improved balance and heel strike, and more even step lengths. TREATMENT: Therapeutic Exercise: 1: AROM ankle pumps x 20 reps 2: AROM ankle inv/ever x 20 reps 3: ankle alphabet x1 4: Seated BAPS PWB left ball 2 and pegs, A/P, lateral and cw and ccw 2x10 each. 5: Left towel toe scrunches 2x15. Skilled Intervention: Patient was educated in proper exercise technique and purpose for exercises. Reviewed and educated patient on additions/changes for home exercise program and encouraged pt to continue with short distances in the home ambulating with shoe and cane. Skilled judgment was provided in selection of appropriate interventions. Correct performance of therapeutic exercises was facilitated with verbal and visual cuing. Patient education as noted. Manual Therapy: 1: Retrograde massage including MLD left foot to knee in elevation x 10 minutes. Skilled Intervention: Manual skills to improve joint mobility, ROM, and decrease pain. Utilized anatomy knowledge of the therapist, and assessment of patient's response to intervention. Gait Trainin: Gait with st cane (2x40 ft) with emphasis on symmetrical step length. 2: Side stepping in // bars back and forth x 1 each direction. Skilled Intervention: Facilitated proper gait cycle with the use of verbal and visual cues for correction of gait deviations identified in the objective section above. Education provided to patient regarding the proper sequence for length of steps and smoothness of weight transfer and stepping sequence. Billing: [facility]: Therapeutic Exercise ([id number]): 1:1 time: 21 minutes (1 unit: 8-22 mins) Manual Therapy (92342): 1:1 time: 10 minutes (1 unit: 8-22 mins) Gait Training (71793): 1:1 time: 12 minutes (1 unit: 8-22 mins) Total time: 43 minutes Kat Milton PT PROGRESS Observed: 10/06/2017 Status: COMPLETED Source: [place] 3:28 PM [facility] REPOSITORY HNO ID: [id number] Author: Kat (Pt) Yoan Service: (none) Author Type: Physical Therapist Type: Progress Notes Filed: 10/06/2017 7:17 PM Note Text: Episode Visit Count: 20 Therapist That Will Oversee The Plan Of Care: Kat Milton Start of Care Date: 07/14/17 Onset Date: 02/17/17 Patient Identified by Name and Date of : Yes REHABILITATION AND SPORTS THERAPY PHYSICAL THERAPY TREATMENT NOTE ASSESSMENT: Renae Elizondo demonstrated improvements in reduction of edema at end of session and improved gait with straight cane and shoe (without the boot). The patient will continue to benefit from continued skilled physical therapy for AROM, edema control and gait instruction. PLAN FOR NEXT VISIT: POC update in next two visits. SUBJECTIVE: Pt states she is feeling achy all over today d/t the increased heat and humidity. She reports increased pain and swelling L ankle. She notes she tried to cancel last session, but could not get through on the phone , but had the stomach flu. Pain Score: 6/10 (spikes with certain movements) Pain Location: Ankle - Left Description: Aching Post Treatment Pain Score: 7/10 Pain Location: Foot - Left Post Treatment Pain Description: (It feels more calm.) OBJECTIVE MEASURES WITH LEVEL OF FUNCTION: Posture / Alignment LE Observations: Visible increase in edema L foot and ankle at beginning of session. Reduction was observed (at dorsum of foot and medial and lateral foot and ankle areas) at end of session. Gait Gait Observation: Pt demonstrated improved gait pattern with straight cane and shoe (without the walking boot). Step-to pattern with improved balance and heel strike, and more even step lengths. TREATMENT: Therapeutic Exercise: 1: AROM ankle pumps x 20 reps 2: AROM ankle inv/ever x 20 reps 3: ankle alphabet x1 4: Seated BAPS PWB left ball 2 and pegs, A/P, lateral and cw and ccw 2x10 each. 5: Left towel toe scrunches 2x15. Skilled Intervention: Patient was educated in proper exercise technique and purpose for exercises. Reviewed and educated patient on additions/changes for home exercise program and encouraged pt to continue with short distances in the home ambulating with shoe and cane. Skilled judgment was provided in selection of appropriate interventions. Correct performance of therapeutic exercises was facilitated with verbal and visual cuing. Patient education as noted. Manual Therapy: 1: Retrograde massage including MLD left foot to knee in elevation x 10 minutes. Skilled Intervention: Manual skills to improve joint mobility, ROM, and decrease pain. Utilized anatomy knowledge of the therapist, and assessment of patient's response to intervention. Gait Trainin: Gait with st cane (2x40 ft) with emphasis on symmetrical step length. 2: Side stepping in // bars back and forth x 1 each direction. Skilled Intervention: Facilitated proper gait cycle with the use of verbal and visual cues for correction of gait deviations identified in the objective section above. Education provided to patient regarding the proper sequence for length of steps and smoothness of weight transfer and stepping sequence. Billing: [facility]: Therapeutic Exercise (00032): 1:1 time: 21 minutes (1 unit: 8-22 mins) Manual Therapy (49451): 1:1 time: 10 minutes (1 unit: 8-22 mins) Gait Training (99866): 1:1 time: 12 minutes (1 unit: 8-22 mins) Total time: 43 minutes Kat Milton PT PROGRESS Observed: 09/29/2017 Status: COMPLETED Source: [place] 2:58 PM [facility] REPOSITORY HNO ID: [id number] Author: Kat (Pt) Yoan Service: (none) Author Type: Physical Therapist Type: Progress Notes Filed: 09/29/2017 6:51 PM Note Text: Episode Visit Count: 19 Therapist That Will Oversee The Plan Of Care: Kat Milton Start of Care Date: 07/14/17 Onset Date: 02/17/17 Patient Identified by Name and Date of : Yes REHABILITATION AND SPORTS THERAPY PHYSICAL THERAPY TREATMENT NOTE ASSESSMENT: Renae Elizondo demonstrated difficulty with increase edema left ankle. She had a reduction in edema with retrograde massage in elevation. Ambulation on level with st cane with B tennis shoes on with emphasis on equal step length and instruction for patient to look up. Increase pain after walking in shoes. The patient will continue to benefit from continued skilled physical therapy for progression of gait and edema control. PLAN FOR NEXT VISIT: Continue with exercise, manual therapy and gait with st cane with shoe on. SUBJECTIVE: Patient reports her left posterior ankle has increase swelling and pain. She reports elevating leg intermittently above her heart. Patient reports using her tennsi shoe at times at home as pain allows. Pain Score: 6/10 Pain Location: Ankle - Left Description: Aching Frequency: Intermittent Post Treatment Pain Score: 7/10 Pain Location: Foot - Left Post Treatment Pain Description: Aching;Sharp (sharp at times) OBJECTIVE MEASURES WITH LEVEL OF FUNCTION: Increase puffy edema posterior to left lateral malleoli. TREATMENT: Therapeutic Exercise: 1: AROM ankle pumps x 20 reps 2: AROM ankle inv/ever x 20 reps 3: ankle alphabet x1 4: Seated BAPS PWB left ball 2 and pegs, A/P, lateral and cw and ccw 2x10 each. 5: Left towel toe scrunches 2x15. Skilled Intervention: Patient was educated in proper exercise technique and purpose for exercises. Skilled judgment was provided in selection of appropriate interventions. Manual Therapy: 1: Retrograde massage left foot in elevation x 10 minutes. Skilled Intervention: Manual skills to improve joint mobility, ROM, and decrease pain. Utilized anatomy knowledge of the therapist, and assessment of patient's response to intervention. Gait Trainin: Gait with st cane with emphasis on symmetrical step length. 2: Side stepping in // bars back and forth x 1 each direction. Skilled Intervention: Facilitated proper gait cycle with the use of verbal and visual cues for correction of gait deviations identified in the assessment section above. Billing: [facility]: Therapeutic Exercise ([id number]): 1:1 time: 20 minutes (1 unit: 8-22 mins) Manual Therapy (41971): 1:1 time: 10 minutes (1 unit: 8-22 mins) Gait Training (22333): 1:1 time: 10 minutes (1 unit: 8-22 mins) Total time: 40 minutes Rita Sun PT-[place] Milton PT CNTHERAPY Observed: 09/29/2017 Status: COMPLETED Source: [place] 2:45 PM [facility] REPOSITORY OT/PT/Speech Visit (PTWS) RENAE ELIZONDO ([id number]) 1955 F Date Time Provider Department 09/29/17 2:45 PM RITA SUN (SAMPLE SUPERVISOR) PTWS Date Time Provider Department Center 09/29/2017 2:45 PM [id number], NANCY (SAMPLE SUPERVISOR) PTWS [facility] Reason for Visit: Physical Therapy [503] Primary Visit Diagnosis:Arthritis, midfoot [M19.079] Allergies As of Date: 09/29/2017 Noted Allergy Reaction ADHESIVE TAPE (ROSINS) 02/13/2006 2 - Rash Comments: tore skin/blisters MORPHINE 02/05/2006 5 - Intolerance Comments: vomiting, shaking. NSAIDS (NON-STEROIDAL ANTI-INFLAM*10/05/2014 11 - Vomiting VASOTEC (ENALAPRIL MALEATE) 09/08/2008 Comments: nausea/doesn't work Date Reviewed: 09/15/2017 Reviewed by: Irene De Paz (Pa) - Fully Assessed Prescriptions as of 09/29/2017 Sig: HYDROXYCHLOROQUINE 200 MG TAB* TAKE ONE TABLET BY MOUTH TWIC* LEFLUNOMIDE 20 MG TABLET Take 1 tablet by mouth once d* DICLOFENAC 1 % TOPICAL GEL apply topically 4 grams to fo* CHOLECALCIFEROL (VITAMIN D3) * Take 2,000 Units by mouth onc* PROLIA SUBCUTANEOUS Inject subcutaneously once e* CELECOXIB 200 MG CAPSULE Take 200 mg by mouth as neede* MAGNESIUM OXIDE 500 MG TABLET Taking 250mg. Take two tablet* ACETAMINOPHEN 500 MG TABLET Take 500 mg by mouth every 8 * CPAP CHIN STRAP, USED WITH CPAP DE* FLUTICASONE 50 MCG/ACTUATION * Use 1 [place] in each nostril d* FERROUS SULFATE 325 MG (65 MG* Take 325 mg by mouth three ti* ASCORBIC ACID (VITAMIN C) 500* Take 500 mg by mouth three ti* CPAP AutoPAP 10-20 cmH2O, suitable* CYCLOBENZAPRINE 10 MG TABLET LEVOTHYROXINE 50 MCG TABLET Take 50 mcg by mouth daily be* CLOBETASOL 0.05 % TOPICAL CRE* as directed * GABAPENTIN 300 MG CAPSULE Take 300 mg by mouth three ti* * PROMETHAZINE 25 MG TABLET Take one(1) tablet every four* * ATIVAN 1 MG TABLET takes 1/2 tab as needed * FENTANYL 50 MCG/HR TRANSDERMA* Apply as directed. Change pat* * B COMPLEX 1 TABLET Take one(1) tablet daily. * MULTIVITAMIN,TX-MINERALS TABL* 1 tab daily Progress Notes: Kat Milton, PT 09/29/2017 6:51 PM Signed Episode Visit Count: 19 Therapist That Will Oversee The Plan Of Care: Kat Milton Start of Care Date: 07/14/17 Onset Date: 02/17/17 Patient Identified by Name and Date of : Yes REHABILITATION AND SPORTS THERAPY PHYSICAL THERAPY TREATMENT NOTE ASSESSMENT: Renae Elizondo demonstrated difficulty with increase edema left ankle. She had a reduction in edema with retrograde massage in elevation. Ambulation on level with st cane with B tennis shoes on with emphasis on equal step length and instruction for patient to look up. Increase pain after walking in shoes. The patient will continue to benefit from continued skilled physical therapy for progression of gait and edema control. PLAN FOR NEXT VISIT: Continue with exercise, manual therapy and gait with st cane with shoe on. SUBJECTIVE: Patient reports her left posterior ankle has increase swelling and pain. She reports elevating leg intermittently above her heart. Patient reports using her tennsi shoe at times at home as pain allows. Pain Score: 6/10 Pain Location: Ankle - Left Description: Aching Frequency: Intermittent Post Treatment Pain Score: 7/10 Pain Location: Foot - Left Post Treatment Pain Description: Aching;Sharp (sharp at times) OBJECTIVE MEASURES WITH LEVEL OF FUNCTION: Increase puffy edema posterior to left lateral malleoli. TREATMENT: Therapeutic Exercise: 1: AROM ankle pumps x 20 reps 2: AROM ankle inv/ever x 20 reps 3: ankle alphabet x1 4: Seated BAPS PWB left ball 2 and pegs, A/P, lateral and cw and ccw 2x10 each. 5: Left towel toe scrunches 2x15. Skilled Intervention: Patient was educated in proper exercise technique and purpose for exercises. Skilled judgment was provided in selection of appropriate interventions. Manual Therapy: 1: Retrograde massage left foot in elevation x 10 minutes. Skilled Intervention: Manual skills to improve joint mobility, ROM, and decrease pain. Utilized anatomy knowledge of the therapist, and assessment of patient's response to intervention. Gait Trainin: Gait with st cane with emphasis on symmetrical step length. 2: Side stepping in // bars back and forth x 1 each direction. Skilled Intervention: Facilitated proper gait cycle with the use of verbal and visual cues for correction of gait deviations identified in the assessment section above. Billing: [facility]: Therapeutic Exercise ([id number]): 1:1 time: 20 minutes (1 unit: 8-22 mins) Manual Therapy ([id number]): 1:1 time: 10 minutes (1 unit: 8-22 mins) Gait Training ([id number]): 1:1 time: 10 minutes (1 unit: 8-22 mins) Total time: 40 minutes HEATHER Jean PT Previous Version Follow-up and Disposition History Recorded PROGRESS Observed: 09/26/2017 Status: COMPLETED Source: [place] 10:30 AM [facility] [place] REPOSITORY O ID: [id number] Author: Kat (Easton) Yoan Service: (none) Author Type: Physical Therapist Type: Progress Notes Filed: 09/26/2017 3:44 PM Note Text: Episode Visit Count: 18 Therapist That Will Oversee The Plan Of Care: Kat Milton Start of Care Date: 07/14/17 Onset Date: 02/17/17 Patient Identified by Name and Date of : Yes REHABILITATION AND SPORTS THERAPY PHYSICAL THERAPY TREATMENT NOTE ASSESSMENT: Renae Elizondo demonstrated improvements in progression of BAPS board activity. The patient will continue to benefit from continued skilled physical therapy for pain and edema control, ROM, proprioception and gait progression and instruction. PLAN FOR NEXT VISIT: Continue to progress manual techniques and focus on gait to pt tolerance. SUBJECTIVE: Pt reports she has been doing more the last couple of days, was sitting in a twisted position while cutting up peaches, and is a little more sore and swollen. Pain Score: 7/10 Pain Location: Foot - Left Description: Aching Post Treatment Pain Score: 7/10 Pain Location: Ankle - Left Post Treatment Pain Description: (It usually goes down one or two notches later on.) OBJECTIVE MEASURES WITH LEVEL OF FUNCTION: LE AROM L Ankle Dorsiflexion: 5 Degrees TREATMENT: Therapeutic Exercise: 1: AROM ankle pumps x 20 reps 2: AROM ankle inv/ever x 20 reps 3: ankle alphabet x1 4: Seated BAPS PWB left ball 2 and pegs, A/P, lateral and cw and ccw 2x10 each. Skilled Intervention: Patient was educated in proper exercise technique and purpose for exercises. Reviewed and educated patient on additions/changes for home exercise program Skilled judgment was provided in selection of appropriate interventions. Correct performance of therapeutic exercises was facilitated with verbal and visual cuing. Patient education as noted. Manual Therapy: 1: Retrograde massage left foot in elevation 2: IASTM using [employer] Stenciler tools scanner and tongue depressor with light to moderate pressure as tolerated L lateral foot and ankle Skilled Intervention: Manual skills to improve joint mobility, ROM, and decrease pain. Utilized anatomy knowledge of the therapist, and assessment of patient's response to intervention. Gait Trainin: Gait with walker with shoes on x 40 feet (x 2). Improved gait pattern from ambulation with boot on and without the walker. 2: Side stepping in // bars back and forth x 1 each direction. Skilled Intervention: Patient was provided supervision during pre-gait/gait training to prevent falls and insure safety. Facilitated proper gait cycle with the use of verbal and visual cues for correction of gait deviations identified in the objective section above. Billing: [facility]: Therapeutic Exercise ([id number]): 1:1 time: 18 minutes (1 unit: 8-22 mins) Manual Therapy ([id number]): 1:1 time: 15 minutes (1 unit: 8-22 mins) Gait Training ([id number]): 1:1 time: 12 minutes (1 unit: 8-22 mins) Total time: 45 minutes Kat Milton PT CNTHERAPY Observed: 09/26/2017 Status: COMPLETED Source: [place] 10:15 AM [facility] [place] REPOSITORY OT/PT/Speech Visit (PTWS) RENAE ELIZONDO ([id number]) 1955 F Date Time Provider Department 09/26/17 10:15 AM KAT MILTON (PT) PTWS Date Time Provider Department Center 09/26/2017 10:15 AM [id number] MILTON (PT) PTWS [facility] Reason for Visit: Physical Therapy [503] Primary Visit Diagnosis:Arthritis, midfoot [M19.079] Allergies As of Date: 09/26/2017 Noted Allergy Reaction ADHESIVE TAPE (ROSINS) 02/13/2006 2 - Rash Comments: tore skin/blisters MORPHINE 02/05/2006 5 - Intolerance Comments: vomiting, shaking. NSAIDS (NON-STEROIDAL ANTI-INFLAM*10/05/2014 11 - Vomiting VASOTEC (ENALAPRIL MALEATE) 09/08/2008 Comments: nausea/doesn't work Date Reviewed: 09/15/2017 Reviewed by: Irene De Paz (Pa) - Fully Assessed Prescriptions as of 09/26/2017 Sig: HYDROXYCHLOROQUINE 200 MG TAB* TAKE ONE TABLET BY MOUTH TWIC* LEFLUNOMIDE 20 MG TABLET Take 1 tablet by mouth once d* DICLOFENAC 1 % TOPICAL GEL apply topically 4 grams to fo* CHOLECALCIFEROL (VITAMIN D3) * Take 2,000 Units by mouth onc* PROLIA SUBCUTANEOUS Inject subcutaneously once e* CELECOXIB 200 MG CAPSULE Take 200 mg by mouth as neede* MAGNESIUM OXIDE 500 MG TABLET Taking 250mg. Take two tablet* ACETAMINOPHEN 500 MG TABLET Take 500 mg by mouth every 8 * CPAP CHIN STRAP, USED WITH CPAP DE* FLUTICASONE 50 MCG/ACTUATION * Use 1 [place] in each nostril d* FERROUS SULFATE 325 MG (65 MG* Take 325 mg by mouth three ti* ASCORBIC ACID (VITAMIN C) 500* Take 500 mg by mouth three ti* CPAP AutoPAP 10-20 cmH2O, suitable* CYCLOBENZAPRINE 10 MG TABLET LEVOTHYROXINE 50 MCG TABLET Take 50 mcg by mouth daily be* CLOBETASOL 0.05 % TOPICAL CRE* as directed * GABAPENTIN 300 MG CAPSULE Take 300 mg by mouth three ti* * PROMETHAZINE 25 MG TABLET Take one(1) tablet every four* * ATIVAN 1 MG TABLET takes 1/2 tab as needed * FENTANYL 50 MCG/HR TRANSDERMA* Apply as directed. Change pat* * B COMPLEX 1 TABLET Take one(1) tablet daily. * MULTIVITAMIN,TX-MINERALS TABL* 1 tab daily Progress Notes: Kat Milton, PT 09/26/2017 3:44 PM Signed Episode Visit Count: 18 Therapist That Will Oversee The Plan Of Care: Kat Milton Start of Care Date: 07/14/17 Onset Date: 02/17/17 Patient Identified by Name and Date of : Yes REHABILITATION AND SPORTS THERAPY PHYSICAL THERAPY TREATMENT NOTE ASSESSMENT: Renae Yaz Elizondo demonstrated improvements in progression of BAPS board activity. The patient will continue to benefit from continued skilled physical therapy for pain and edema control, ROM, proprioception and gait progression and instruction. PLAN FOR NEXT VISIT: Continue to progress manual techniques and focus on gait to pt tolerance. SUBJECTIVE: Pt reports she has been doing more the last couple of days, was sitting in a twisted position while cutting up peaches, and is a little more sore and swollen. Pain Score: 7/10 Pain Location: Foot - Left Description: Aching Post Treatment Pain Score: 7/10 Pain Location: Ankle - Left Post Treatment Pain Description: (It usually goes down one or two notches later on.) OBJECTIVE MEASURES WITH LEVEL OF FUNCTION: LE AROM L Ankle Dorsiflexion: 5 Degrees TREATMENT: Therapeutic Exercise: 1: AROM ankle pumps x 20 reps 2: AROM ankle inv/ever x 20 reps 3: ankle alphabet x1 4: Seated BAPS PWB left ball 2 and pegs, A/P, lateral and cw and ccw 2x10 each. Skilled Intervention: Patient was educated in proper exercise technique and purpose for exercises. Reviewed and educated patient on additions/changes for home exercise program Skilled judgment was provided in selection of appropriate interventions. Correct performance of therapeutic exercises was facilitated with verbal and visual cuing. Patient education as noted. Manual Therapy: 1: Retrograde massage left foot in elevation 2: IASTM using [employer] Stenciler tools scanner and tongue depressor with light to moderate pressure as tolerated L lateral foot and ankle Skilled Intervention: Manual skills to improve joint mobility, ROM, and decrease pain. Utilized anatomy knowledge of the therapist, and assessment of patient's response to intervention. Gait Trainin: Gait with walker with shoes on x 40 feet (x 2). Improved gait pattern from ambulation with boot on and without the walker. 2: Side stepping in // bars back and forth x 1 each direction. Skilled Intervention: Patient was provided supervision during pre-gait/gait training to prevent falls and insure safety. Facilitated proper gait cycle with the use of verbal and visual cues for correction of gait deviations identified in the objective section above. Billing: [facility]: Therapeutic Exercise ([id number]): 1:1 time: 18 minutes (1 unit: 8-22 mins) Manual Therapy ([id number]): 1:1 time: 15 minutes (1 unit: 8-22 mins) Gait Training ([id number]): 1:1 time: 12 minutes (1 unit: 8-22 mins) Total time: 45 minutes Kat Milton PT PROGRESS Observed: 09/22/2017 Status: COMPLETED Source: [place] 10:36 AM [facility] [place] REPOSITORY HNO ID: [id number] Author: Kat NolascoPt) Yoan Service: (none) Author Type: Physical Therapist Type: Progress Notes Filed: 09/22/2017 11:21 AM Note Text: Episode Visit Count: 17 Therapist That Will Oversee The Plan Of Care: Kat Milton Start of Care Date: 07/14/17 Onset Date: 02/17/17 Patient Identified by Name and Date of : Yes REHABILITATION AND SPORTS THERAPY PHYSICAL THERAPY TREATMENT NOTE ASSESSMENT: Renae Elizondo demonstrated improvements in edema measurements L foot/ankle. The patient will continue to benefit from continued skilled physical therapy for pain and edema control, ROM, proprioception and gait progression and instruction. PLAN FOR NEXT VISIT: SUBJECTIVE: Pt reports Friday and Friday nights she had pain at top of L foot that interfered with her sleep. States she did not do as much over the weekend d/t weather. Pain Score: 5/10 Pain Location: Foot - Left OBJECTIVE MEASURES WITH LEVEL OF FUNCTION: Ankle Observations Comments: 2 above mall: L 23; B mall: L 28; heel: L 34; midfoot: L 25.5; MTP: L 25 Pt demonstrated increased mobility during BAPS board activity today. TREATMENT: Therapeutic Exercise: 1: AROM ankle pumps x 15 reps 2: AROM ankle inv/ever x 15 reps 3: ankle alphabet x1 4: Seated BAPS PWB left ball 2 A/P, lateral and cw and ccw 2x10 each. Skilled Intervention: Patient was educated in proper exercise technique and purpose for exercises. Reviewed and educated patient on additions/changes for home exercise program and pt to continue. Skilled judgment was provided in selection of appropriate interventions. Correct performance of therapeutic exercises was facilitated with verbal cuing. Patient education as noted. Pt stated some soreness across top of foot with plantarflexion-inversion motion (BAPS). Manual Therapy: 1: Retrograde massage left foot in elevation 2: IASTM using [employer] Stenciler tools scanner and tongue depressor with light pressure L lateral foot and ankle Skilled Intervention: Manual skills to improve joint mobility, ROM, and decrease pain. Utilized anatomy knowledge of the therapist, and assessment of patient's response to intervention. Gait Trainin: Gait with walker with shoes on x 40 feet (x 2). Improved gait pattern from ambulation with boot on and without the walker. 2: Side stepping in // bars back and forth x 1 each direction. Skilled Intervention: Patient was provided stand by assist during pre-gait/gait training to prevent falls and insure safety. Facilitated proper gait cycle with the use of verbal and visual cues for correction of gait deviations identified in the objective section above. Skilled judgment used to assess proper use of assistive device. Billing: [facility]: Therapeutic Exercise ([id number]): 1:1 time: 12 minutes (1 unit: 8-22 mins) Manual Therapy ([id number]): 1:1 time: 17 minutes (1 unit: 8-22 mins) Gait Training ([id number]): 1:1 time: 15 minutes (1 unit: 8-22 mins) Total time: 44 minutes Kat Milton PT CNTHERAPY Observed: 09/22/2017 Status: COMPLETED Source: [place] 10:30 AM [facility] [place] REPOSITORY OT/PT/Speech Visit (PTWS) RENAE ELIZONDO ([id number]) 1955 F Date Time Provider Department 09/22/17 10:30 AM KAT MILTON (PT) PTWS Date Time Provider Department Center 09/22/2017 10:30 AM [id number] MILTON (PT) PTWS [facility] Reason for Visit: Physical Therapy [503] Primary Visit Diagnosis:Arthritis, midfoot [M19.079] Allergies As of Date: 09/22/2017 Noted Allergy Reaction ADHESIVE TAPE (ROSINS) 02/13/2006 2 - Rash Comments: tore skin/blisters MORPHINE 02/05/2006 5 - Intolerance Comments: vomiting, shaking. NSAIDS (NON-STEROIDAL ANTI-INFLAM*10/05/2014 11 - Vomiting VASOTEC (ENALAPRIL MALEATE) 09/08/2008 Comments: nausea/doesn't work Date Reviewed: 09/15/2017 Reviewed by: Irene De Paz (Pa) - Fully Assessed Prescriptions as of 09/22/2017 Sig: HYDROCODONE 5 MG-ACETAMINOPHE* Take 1-2 tablets by mouth heather* HYDROXYCHLOROQUINE 200 MG TAB* TAKE ONE TABLET BY MOUTH TWIC* LEFLUNOMIDE 20 MG TABLET Take 1 tablet by mouth once d* DICLOFENAC 1 % TOPICAL GEL apply topically 4 grams to fo* CHOLECALCIFEROL (VITAMIN D3) * Take 2,000 Units by mouth onc* PROLIA SUBCUTANEOUS Inject subcutaneously once e* CELECOXIB 200 MG CAPSULE Take 200 mg by mouth as neede* MAGNESIUM OXIDE 500 MG TABLET Taking 250mg. Take two tablet* ACETAMINOPHEN 500 MG TABLET Take 500 mg by mouth every 8 * CPAP CHIN STRAP, USED WITH CPAP DE* FLUTICASONE 50 MCG/ACTUATION * Use 1 [place] in each nostril d* FERROUS SULFATE 325 MG (65 MG* Take 325 mg by mouth three ti* ASCORBIC ACID (VITAMIN C) 500* Take 500 mg by mouth three ti* CPAP AutoPAP 10-20 cmH2O, suitable* CYCLOBENZAPRINE 10 MG TABLET LEVOTHYROXINE 50 MCG TABLET Take 50 mcg by mouth daily be* CLOBETASOL 0.05 % TOPICAL CRE* as directed * GABAPENTIN 300 MG CAPSULE Take 300 mg by mouth three ti* * PROMETHAZINE 25 MG TABLET Take one(1) tablet every four* * ATIVAN 1 MG TABLET takes 1/2 tab as needed * FENTANYL 50 MCG/HR TRANSDERMA* Apply as directed. Change pat* * B COMPLEX 1 TABLET Take one(1) tablet daily. * MULTIVITAMIN,TX-MINERALS TABL* 1 tab daily Progress Notes: Kat Milton, PT 09/22/2017 11:21 AM Signed Episode Visit Count: 17 Therapist That Will Oversee The Plan Of Care: Kat Milton Start of Care Date: 07/14/17 Onset Date: 02/17/17 Patient Identified by Name and Date of : Yes REHABILITATION AND SPORTS THERAPY PHYSICAL THERAPY TREATMENT NOTE ASSESSMENT: Renae Elizondo demonstrated improvements in edema measurements L foot/ankle. The patient will continue to benefit from continued skilled physical therapy for pain and edema control, ROM, proprioception and gait progression and instruction. PLAN FOR NEXT VISIT: SUBJECTIVE: Pt reports Friday and Friday nights she had pain at top of L foot that interfered with her sleep. States she did not do as much over the weekend d/t weather. Pain Score: 5/10 Pain Location: Foot - Left OBJECTIVE MEASURES WITH LEVEL OF FUNCTION: Ankle Observations Comments: 2 above mall: L 23; B mall: L 28; heel: L 34; midfoot: L 25.5; MTP: L 25 Pt demonstrated increased mobility during [employer] board activity today. TREATMENT: Therapeutic Exercise: 1: AROM ankle pumps x 15 reps 2: AROM ankle inv/ever x 15 reps 3: ankle alphabet x1 4: Seated BAPS PWB left ball 2 A/P, lateral and cw and ccw 2x10 each. Skilled Intervention: Patient was educated in proper exercise technique and purpose for exercises. Reviewed and educated patient on additions/changes for home exercise program and pt to continue. Skilled judgment was provided in selection of appropriate interventions. Correct performance of therapeutic exercises was facilitated with verbal cuing. Patient education as noted. Pt stated some soreness across top of foot with plantarflexion- inversion motion (BAPS). Manual Therapy: 1: Retrograde massage left foot in elevation 2: IASTM using [employer] Back[employer] Stenciler tools scanner and tongue depressor with light pressure L lateral foot and ankle Skilled Intervention: Manual skills to improve joint mobility, ROM, and decrease pain. Utilized anatomy knowledge of the therapist, and assessment of patient's response to intervention. Gait Trainin: Gait with walker with shoes on x 40 feet (x 2). Improved gait pattern from ambulation with boot on and without the walker. 2: Side stepping in // bars back and forth x 1 each direction. Skilled Intervention: Patient was provided stand by assist during pre-gait/gait training to prevent falls and insure safety. Facilitated proper gait cycle with the use of verbal and visual cues for correction of gait deviations identified in the objective section above. Skilled judgment used to assess proper use of assistive device. Billing: [facility]: Therapeutic Exercise ([id number]): 1:1 time: 12 minutes (1 unit: 8-22 mins) Manual Therapy ([id number]): 1:1 time: 17 minutes (1 unit: 8-22 mins) Gait Training ([id number]): 1:1 time: 15 minutes (1 unit: 8-22 mins) Total time: 44 minutes Kat Milton PT PROGRESS Observed: 09/19/2017 Status: COMPLETED Source: [place] 10:20 AM [facility] [place] REPOSITORY HNO ID: [id number] Author: Kat (Pt) Yoan Service: (none) Author Type: Physical Therapist Type: Progress Notes Filed: 09/19/2017 4:26 PM Note Text: Episode Visit Count: 16 Therapist That Will Oversee The Plan Of Care: DanyclarkeCarlyKat Start of Care Date: 07/14/17 Onset Date: 02/17/17 Patient Identified by Name and Date of : Yes REHABILITATION AND SPORTS THERAPY PHYSICAL THERAPY TREATMENT NOTE ASSESSMENT: Renae Elizondo demonstrated improvements in gait pattern using walker and shoes versus L LE boot and no walker and progression of exercises today. Initiated trial of IASTM to assist with soft tissue restrictions. The patient will continue to benefit from continued skilled physical therapy for L ankle AROM, strength and gait training to reduce pain and improve gait and function. PLAN FOR NEXT VISIT: Assess response to IASTM. Continue with manual techniques as appropriate, progression of exercises and gait training. SUBJECTIVE: Pt reports overall she can sleep ok, she just has to use pillows to position her foot/ankle, but last night woke her up. She applied Voltaren cream and this was helpful. Pain Score: 6/10 Pain Location: Foot - Left Description: Aching Frequency: Continuous OBJECTIVE MEASURES WITH LEVEL OF FUNCTION: Gait Gait Observation: Pt demonstrated improved gait pattern with use of front wheeled walker. TREATMENT: Therapeutic Exercise: 1: AROM ankle pumps x 15 reps 2: AROM ankle inv/ever x 15 reps 3: ankle alphabet x1 4: Seated BAPS PWB left ball 2 A/P, lateral and cw and ccw x15 each. Skilled Intervention: Patient was educated in proper exercise technique and purpose for exercises. Reviewed and educated patient on additions/changes for home exercise program and pt to continue with current HEP. Skilled judgment was provided in selection of appropriate interventions. Correct performance of therapeutic exercises was facilitated with verbal and visual cuing. Patient education as noted. Manual Therapy: 1: Retrograde massage left foot in elevation 2: IASTM using [employer] Backing Stenciler tools scanner and tongue depressor with light pressure L lateral foot and ankle Skilled Intervention: Manual skills to improve joint mobility, ROM, and decrease pain. Utilized anatomy knowledge of the therapist, and assessment of patient's response to intervention. Gait Trainin: Gait with walker with shoes on x 40 feet (x 2). Improved gait pattern from ambulation with boot on and without the walker. 2: Side stepping in // bars back and forth x 1 each direction. Skilled Intervention: Patient was provided stand by assist during pre-gait/gait training to prevent falls and insure safety. Facilitated proper gait cycle with the use of verbal and visual cues for correction of gait deviations identified in the objective section above. Skilled judgment used to assess proper use of assistive device. Billing: [facility]: Therapeutic Exercise ([id number]): 1:1 time: 15 minutes (1 unit: 8-22 mins) Manual Therapy ([id number]): 1:1 time: 12 minutes (1 unit: 8-22 mins) Gait Training ([id number]): 1:1 time: 17 minutes (1 unit: 8-22 mins) Total time: 44 minutes Kat Milton PT CNTHERAPY Observed: 09/19/2017 Status: COMPLETED Source: [place] 10:15 AM [facility] [place] REPOSITORY OT/PT/Speech Visit (PTWS) RENAE ELIZONDO ([id number]) 1955 F Date Time Provider Department 09/19/17 10:15 AM KAT MILTON (PT) PTWS Date Time Provider Department Center 09/19/2017 10:15 AM [id number] MILTON (PT) PTWS [facility] Reason for Visit: Physical Therapy [503] Primary Visit Diagnosis:Arthritis, midfoot [M19.079] Allergies As of Date: 09/19/2017 Noted Allergy Reaction ADHESIVE TAPE (ROSINS) 02/13/2006 2 - Rash Comments: tore skin/blisters MORPHINE 02/05/2006 5 - Intolerance Comments: vomiting, shaking. NSAIDS (NON-STEROIDAL ANTI-INFLAM*10/05/2014 11 - Vomiting VASOTEC (ENALAPRIL MALEATE) 09/08/2008 Comments: nausea/doesn't work Date Reviewed: 09/15/2017 Reviewed by: Irene De Paz (Pa) - Fully Assessed Prescriptions as of 09/19/2017 Sig: CEPHALEXIN 250 MG CAPSULE Take 1 capsule by mouth four * HYDROCODONE 5 MG-ACETAMINOPHE* Take 1-2 tablets by mouth heather* HYDROXYCHLOROQUINE 200 MG TAB* TAKE ONE TABLET BY MOUTH TWIC* LEFLUNOMIDE 20 MG TABLET Take 1 tablet by mouth once d* DICLOFENAC 1 % TOPICAL GEL apply topically 4 grams to fo* CHOLECALCIFEROL (VITAMIN D3) * Take 2,000 Units by mouth onc* PROLIA SUBCUTANEOUS Inject subcutaneously once e* CELECOXIB 200 MG CAPSULE Take 200 mg by mouth as neede* MAGNESIUM OXIDE 500 MG TABLET Taking 250mg. Take two tablet* ACETAMINOPHEN 500 MG TABLET Take 500 mg by mouth every 8 * CPAP CHIN STRAP, USED WITH CPAP DE* FLUTICASONE 50 MCG/ACTUATION * Use 1 [place] in each nostril d* FERROUS SULFATE 325 MG (65 MG* Take 325 mg by mouth three ti* ASCORBIC ACID (VITAMIN C) 500* Take 500 mg by mouth three ti* CPAP AutoPAP 10-20 cmH2O, suitable* CYCLOBENZAPRINE 10 MG TABLET LEVOTHYROXINE 50 MCG TABLET Take 50 mcg by mouth daily be* CLOBETASOL 0.05 % TOPICAL CRE* as directed * GABAPENTIN 300 MG CAPSULE Take 300 mg by mouth three ti* * PROMETHAZINE 25 MG TABLET Take one(1) tablet every four* * ATIVAN 1 MG TABLET takes 1/2 tab as needed * FENTANYL 50 MCG/HR TRANSDERMA* Apply as directed. Change pat* * B COMPLEX 1 TABLET Take one(1) tablet daily. * MULTIVITAMIN,TX-MINERALS TABL* 1 tab daily Progress Notes: Kat Milton PT 09/19/2017 4:26 PM Signed Episode Visit Count: 16 Therapist That Will Oversee The Plan Of Care: Kat Milton Start of Care Date: 07/14/17 Onset Date: 02/17/17 Patient Identified by Name and Date of : Yes REHABILITATION AND SPORTS THERAPY PHYSICAL THERAPY TREATMENT NOTE ASSESSMENT: Renae Elizondo demonstrated improvements in gait pattern using walker and shoes versus L LE boot and no walker and progression of exercises today. Initiated trial of IASTM to assist with soft tissue restrictions. The patient will continue to benefit from continued skilled physical therapy for L ankle AROM, strength and gait training to reduce pain and improve gait and function. PLAN FOR NEXT VISIT: Assess response to IASTM. Continue with manual techniques as appropriate, progression of exercises and gait training. SUBJECTIVE: Pt reports overall she can sleep ok, she just has to use pillows to position her foot/ankle, but last night woke her up. She applied Voltaren cream and this was helpful. Pain Score: 6/10 Pain Location: Foot - Left Description: Aching Frequency: Continuous OBJECTIVE MEASURES WITH LEVEL OF FUNCTION: Gait Gait Observation: Pt demonstrated improved gait pattern with use of front wheeled walker. TREATMENT: Therapeutic Exercise: 1: AROM ankle pumps x 15 reps 2: AROM ankle inv/ever x 15 reps 3: ankle alphabet x1 4: Seated BAPS PWB left ball 2 A/P, lateral and cw and ccw x15 each. Skilled Intervention: Patient was educated in proper exercise technique and purpose for exercises. Reviewed and educated patient on additions/changes for home exercise program and pt to continue with current HEP. Skilled judgment was provided in selection of appropriate interventions. Correct performance of therapeutic exercises was facilitated with verbal and visual cuing. Patient education as noted. Manual Therapy: 1: Retrograde massage left foot in elevation 2: IASTM using [employer] tools scanner and tongue depressor with light pressure L lateral foot and ankle Skilled Intervention: Manual skills to improve joint mobility, ROM, and decrease pain. Utilized anatomy knowledge of the therapist, and assessment of patient's response to intervention. Gait Trainin: Gait with walker with shoes on x 40 feet (x 2). Improved gait pattern from ambulation with boot on and without the walker. 2: Side stepping in // bars back and forth x 1 each direction. Skilled Intervention: Patient was provided stand by assist during pre-gait/gait training to prevent falls and insure safety. Facilitated proper gait cycle with the use of verbal and visual cues for correction of gait deviations identified in the objective section above. Skilled judgment used to assess proper use of assistive device. Billing: [facility]: Therapeutic Exercise ([id number]): 1:1 time: 15 minutes (1 unit: 8-22 mins) Manual Therapy ([id number]): 1:1 time: 12 minutes (1 unit: 8-22 mins) Gait Training ([id number]): 1:1 time: 17 minutes (1 unit: 8-22 mins) Total time: 44 minutes Kat Milton, PT PROGRESS Observed: 09/15/2017 Status: COMPLETED Source: [place] 12:07 PM [facility] [place] REPOSITORY HNO ID: [id number] Author: Kat (Pt) Yoan Service: (none) Author Type: Physical Therapist Type: Progress Notes Filed: 09/19/2017 5:33 PM Note Text: Episode Visit Count: 15 Therapist That Will Oversee The Plan Of Care: Kat Milton Start of Care Date: 07/14/17 Onset Date: 02/17/17 Patient Identified by Name and Date of : Yes REHABILITATION AND SPORTS THERAPY PHYSICAL THERAPY PROGRESS REPORT PLAN OF CARE UPDATE: Assessment: Renae Elizondo exhibits improvements in heel strike and stance time during gait, L knee extension and ankle dorsiflexion strength and ankle eversion AROM. Edema of foot/ankle is overall improved, but still varies depending on position and activity. She continues to be limited with walking in the community. She is progressing slower than expected towards her therapy goals as demonstrated by: documented subjective information on progress and documented objective information regarding gait, strength and range of motion. She will benefit from continued skilled therapy requiring therapeutic exercise, manual techniques and gait training in order to further improve AROM, strength, gait and soft tissue restrictions to allow for increased function with decreased pain. Functional gains: Improved sleep Increased independence with HEP Increased ROM Increased strength Goals for Episode of Care: created on 07/14/17 through 09/13/17 Goals updated on 08/18/2017. [place] in home exercise program. (Met) Patient will decrease pain rating by 2 points to meet minimal clinical important difference for numeric pain rating scale. (Partially Met)- inconsistent Patient will increase active ROM of L ankle to allow pt to improved performance of ADLs and to normalize gait mechanics / gait pattern . (Partially Met)- progressing Patient will increase strength of L LE to 4+ to 5/5 to allow for return to prior functional status and normalized gait mechanics. (Partially Met)- progressing Perform community ambulation, stair negotiation and undisturbed sleep with decreased report of symptoms/pain in 8 weeks. (Partially Met)- improving Demonstrate improvement on functional score: Patient will increase his/her score on the Lower Extremity Functional Scale by at least 9 points to indicate a Minimal Clinical Important Difference. (Not Met) Normal gait. (Not Met) Planned Interventions, Frequency, and Duration: 2x/week, 4 weeks Total Number of Visits Planned: 8 Patient to be seen for Therapeutic exercise;Manual therapy;Gait Training;Patient/Family/Caregiver Education PLAN FOR NEXT VISIT: Continue with srengthening in weight bearing, gait training and manual techniques for soft tissue restrictions and edema control. SUBJECTIVE: Pt states the increased heat and humidity is causing increased swelling and pain in her L foot and all my joints. She notes the pain,depends on how I step or walk on it. If walking in the house with her shoe on she can do a a couple laps around and if walking with the boot on, she can tolerate about an hour and a half to get groceries then has to sit and rest. Stairs are still very difficult and sleeping is somewhat better with intermittent nights of waking d/t discomfort.. Pain Score: 5/10 Pain Location: Foot - Left (lateral ankle and dorsal-lateral foot) Description: Aching Frequency: Continuous Post Treatment Pain Score: No Change OBJECTIVE MEASURES WITH LEVEL OF FUNCTION: Ankle Observations Comments: 2 above mall: L 24; B mall: L 28; heel: L 34.5; midfoot: L 26.5; MTP: L 25.5 L Ankle Palpation Tenderness: Other L Ankle Palpation Tenderness Comments: (lateral ankle and dorso-lateral foot) Gait Gait Deviations Left Lower Extremity: Push-off during terminal stance decreased;Step length decreased (heel strike improved, stance time improved) LE AROM L Ankle Dorsiflexion: 0 Degrees (to neutral) L Ankle Plantar Flexion: 35 Degrees L Ankle Inversion: 15 L Ankle Eversion: 15 LE Strength L Knee Extension (L3): 4+/5 L Knee Flexion: 4+/5 L Ankle Dorsiflexion (L4): 4/5 L Ankle Plantar Flexion: 4/5 L Ankle Inversion: 4-/5 L Ankle Eversion: 4-/5 TREATMENT: Therapeutic Exercise: 1: AROM ankle pumps x 15 reps 2: AROM ankle inv/ever x 15 reps 3: ankle alphabet x1 4: Seated BAPS PWB left ball 2 A/P, lateral and cw and ccw x10 each. Skilled Intervention: Patient was educated in proper exercise technique and purpose for exercises. Reviewed and educated patient on additions/changes for home exercise program and pt to continue with current HEP. Skilled judgment was provided in selection of appropriate interventions. Correct performance of therapeutic exercises was facilitated with verbal and visual cuing. Patient education as noted. Objective measurements and reassessment. Manual Therapy: 1: Retrograde massage left foot in elevation x 12 minutes. Skilled Intervention: Manual skills to improve joint mobility, ROM, and decrease pain. Utilized anatomy knowledge of the therapist, and assessment of patient's response to intervention. Gait Trainin: Gait in ll bars with instruction on heel strike, foot flat and push off over toes on left during swing through of gait with 2 UE assist from ll bars.. Skilled Intervention: Facilitated proper gait cycle with the use of verbal cues for correction of gait deviations identified in the objective section above. Billing: [facility]: Therapeutic Exercise ([id number]): 1:1 time: 25 minutes (2 units: 23-37 mins) Manual Therapy ([id number]): 1:1 time: 12 minutes (1 unit: 8-22 mins) Gait Training (40887): 1:1 time: 5 minutes (no charge) Total time: 42 minutes Kat Milton PT CNTHERAPY Observed: 09/15/2017 Status: COMPLETED Source: [place] 12:00 PM [facility] [place] REPOSITORY OT/PT/Speech Visit (PTWS) RENAE ELIZONDO ([id number]) 1955 F Date Time Provider Department 09/15/17 12:00 PM KAT MILTON (PT) PTWS Date Time Provider Department Center 09/15/2017 12:00 PM [id number] MILTON (PT) PTWS [facility] Reason for Visit: PT Progress Note [1596] Primary Visit Diagnosis:Arthritis, midfoot [M19.079] Allergies As of Date: 09/15/2017 Noted Allergy Reaction ADHESIVE TAPE (ROSINS) 02/13/2006 2 - Rash Comments: tore skin/blisters MORPHINE 02/05/2006 5 - Intolerance Comments: vomiting, shaking. NSAIDS (NON-STEROIDAL ANTI-INFLAM*10/05/2014 11 - Vomiting VASOTEC (ENALAPRIL MALEATE) 09/08/2008 Comments: nausea/doesn't work Date Reviewed: 09/15/2017 Reviewed by: Irene De Paz (Pa) - Fully Assessed Prescriptions as of 09/15/2017 Sig: HYDROCODONE 5 MG-ACETAMINOPHE* Take 1-2 tablets by mouth heather* HYDROXYCHLOROQUINE 200 MG TAB* TAKE ONE TABLET BY MOUTH TWIC* LEFLUNOMIDE 20 MG TABLET Take 1 tablet by mouth once d* DICLOFENAC 1 % TOPICAL GEL apply topically 4 grams to fo* CHOLECALCIFEROL (VITAMIN D3) * Take 2,000 Units by mouth onc* PROLIA SUBCUTANEOUS Inject subcutaneously once e* CELECOXIB 200 MG CAPSULE Take 200 mg by mouth as neede* MAGNESIUM OXIDE 500 MG TABLET Taking 250mg. Take two tablet* ACETAMINOPHEN 500 MG TABLET Take 500 mg by mouth every 8 * CPAP CHIN STRAP, USED WITH CPAP DE* FLUTICASONE 50 MCG/ACTUATION * Use 1 [place] in each nostril d* FERROUS SULFATE 325 MG (65 MG* Take 325 mg by mouth three ti* ASCORBIC ACID (VITAMIN C) 500* Take 500 mg by mouth three ti* CPAP AutoPAP 10-20 cmH2O, suitable* CYCLOBENZAPRINE 10 MG TABLET LEVOTHYROXINE 50 MCG TABLET Take 50 mcg by mouth daily be* CLOBETASOL 0.05 % TOPICAL CRE* as directed * GABAPENTIN 300 MG CAPSULE Take 300 mg by mouth three ti* * PROMETHAZINE 25 MG TABLET Take one(1) tablet every four* * ATIVAN 1 MG TABLET takes 1/2 tab as needed * FENTANYL 50 MCG/HR TRANSDERMA* Apply as directed. Change pat* * B COMPLEX 1 TABLET Take one(1) tablet daily. * MULTIVITAMIN,TX-MINERALS TABL* 1 tab daily Progress Notes: Kat Milton PT 09/19/2017 5:33 PM Signed Episode Visit Count: 15 Therapist That Will Oversee The Plan Of Care: Kat Milton Start of Care Date: 07/14/17 Onset Date: 02/17/17 Patient Identified by Name and Date of : Yes REHABILITATION AND SPORTS THERAPY PHYSICAL THERAPY PROGRESS REPORT PLAN OF CARE UPDATE: Assessment: Renae Elizondo exhibits improvements in heel strike and stance time during gait, L knee extension and ankle dorsiflexion strength and ankle eversion AROM. Edema of foot/ankle is overall improved, but still varies depending on position and activity. She continues to be limited with walking in the community. She is progressing slower than expected towards her therapy goals as demonstrated by: documented subjective information on progress and documented objective information regarding gait, strength and range of motion. She will benefit from continued skilled therapy requiring therapeutic exercise, manual techniques and gait training in order to further improve AROM, strength, gait and soft tissue restrictions to allow for increased function with decreased pain. Functional gains: Improved sleep Increased independence with HEP Increased ROM Increased strength Goals for Episode of Care: created on 07/14/17 through 09/13/17 Goals updated on 08/18/2017. [place] in home exercise program. (Met) Patient will decrease pain rating by 2 points to meet minimal clinical important difference for numeric pain rating scale. (Partially Met)- inconsistent Patient will increase active ROM of L ankle to allow pt to improved performance of ADLs and to normalize gait mechanics / gait pattern . (Partially Met)- progressing Patient will increase strength of L LE to 4+ to 5/5 to allow for return to prior functional status and normalized gait mechanics. (Partially Met)- progressing Perform community ambulation, stair negotiation and undisturbed sleep with decreased report of symptoms/pain in 8 weeks. (Partially Met)- improving Demonstrate improvement on functional score: Patient will increase his/her score on the Lower Extremity Functional Scale by at least 9 points to indicate a Minimal Clinical Important Difference. (Not Met) Normal gait. (Not Met) Planned Interventions, Frequency, and Duration: 2x/week, 4 weeks Total Number of Visits Planned: 8 Patient to be seen for Therapeutic exercise;Manual therapy;Gait Training;Patient/Family/Caregiver Education PLAN FOR NEXT VISIT: Continue with srengthening in weight bearing, gait training and manual techniques for soft tissue restrictions and edema control. SUBJECTIVE: Pt states the increased heat and humidity is causing increased swelling and pain in her L foot and all my joints. She notes the pain,depends on how I step or walk on it. If walking in the house with her shoe on she can do a a couple laps around and if walking with the boot on, she can tolerate about an hour and a half to get groceries then has to sit and rest. Stairs are still very difficult and sleeping is somewhat better with intermittent nights of waking d/t discomfort.. Pain Score: 5/10 Pain Location: Foot - Left (lateral ankle and dorsal-lateral foot) Description: Aching Frequency: Continuous Post Treatment Pain Score: No Change OBJECTIVE MEASURES WITH LEVEL OF FUNCTION: Ankle Observations Comments: 2 above mall: L 24; B mall: L 28; heel: L 34.5; midfoot: L 26.5; MTP: L 25.5 L Ankle Palpation Tenderness: Other L Ankle Palpation Tenderness Comments: (lateral ankle and dorso-lateral foot) Gait Gait Deviations Left Lower Extremity: Push-off during terminal stance decreased;Step length decreased (heel strike improved, stance time improved) LE AROM L Ankle Dorsiflexion: 0 Degrees (to neutral) L Ankle Plantar Flexion: 35 Degrees L Ankle Inversion: 15 L Ankle Eversion: 15 LE Strength L Knee Extension (L3): 4+/5 L Knee Flexion: 4+/5 L Ankle Dorsiflexion (L4): 4/5 L Ankle Plantar Flexion: 4/5 L Ankle Inversion: 4-/5 L Ankle Eversion: 4-/5 TREATMENT: Therapeutic Exercise: 1: AROM ankle pumps x 15 reps 2: AROM ankle inv/ever x 15 reps 3: ankle alphabet x1 4: Seated BAPS PWB left ball 2 A/P, lateral and cw and ccw x10 each. Skilled Intervention: Patient was educated in proper exercise technique and purpose for exercises. Reviewed and educated patient on additions/changes for home exercise program and pt to continue with current HEP. Skilled judgment was provided in selection of appropriate interventions. Correct performance of therapeutic exercises was facilitated with verbal and visual cuing. Patient education as noted. Objective measurements and reassessment. Manual Therapy: 1: Retrograde massage left foot in elevation x 12 minutes. Skilled Intervention: Manual skills to improve joint mobility, ROM, and decrease pain. Utilized anatomy knowledge of the therapist, and assessment of patient's response to intervention. Gait Trainin: Gait in ll bars with instruction on heel strike, foot flat and push off over toes on left during swing through of gait with 2 UE assist from ll bars.. Skilled Intervention: Facilitated proper gait cycle with the use of verbal cues for correction of gait deviations identified in the objective section above. Billing: [facility]: Therapeutic Exercise ([id number]): 1:1 time: 25 minutes (2 units: 23-37 mins) Manual Therapy ([id number]): 1:1 time: 12 minutes (1 unit: 8-22 mins) Gait Training (10019): 1:1 time: 5 minutes (no charge) Total time: 42 minutes Kat Milton PT PROGRESS Observed: 09/15/2017 Status: COMPLETED Source: [place] 9:22 AM [facility] [place] REPOSITORY HNO ID: [id number] Author: Irene De Paz (Pa) Service: (none) Author Type: Physician Cable Layer Type: Progress Notes Filed: 09/15/2017 9:29 AM Note Text: Irene De Paz PA-C Department of Orthopaedics Orthopaedics [address] [facility] [address] Dept: [phone] Dept September 15, 2017 CHIEF COMPLAINT: Established Patient (1 week 3 days postop Right index and middle DIP joint fusion and Right 5th PIP joint fusion-OT at [facility] ). 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 She states that she is having a lot more pain in her index and middle finger and she did with her previous left hand fusion. Pain today is an 8 out of 10 burning, sharp, throbbing. She has been icing and elevating as well as taking Vicodin for pain. We will remove her sutures today. She was encouraged to continue icing and elevating for pain we will also provide her with a refill for pain medication. Patient will follow up in 1 month. Exam: Incision sites across the right index and middle DIP joint are well approximated without erythema, discharge or drainage. Incision over the pinky PIP joint is also well approximated without erythema, discharge or drainage. Sutures are clean dry and intact. There is a mild amount of edema in the right index, middle and pinky fingers. Resolving ecchymosis at the right index and middle DIP joints as well as the first through fifth MCP joints. Patient is able to flex and extend the index and middle finger at the PIP and MCP joints. Patient is able to flex and extend the pinky finger at the MCP joint. Patient is neurologically intact. Imaging: deferred today Ms. Renae Elizondo was advised as to contrast therapies and/or to take analgesics/anti-inflammatories as needed and all contraindications were reviewed. Supporting Information Below: Medications: Current Outpatient Prescriptions: HYDROcodone-acetaminophen (NORCO) 5-325 mg per tablet Take 1-2 tablets by mouth every 6 hours as needed for up to 7 days. In accordance to [facility] guidelines, this serves as official documentation that this patient had a major orthopaedic surgery in the past 3 months. It is appropriate for this patient to be prescribed narcotic medication because of these scenarios extending greater than the allotted MED requirement or 7 day limit hydroxychloroquine (PLAQUENIL) 200 mg tablet TAKE ONE TABLET BY MOUTH TWICE DAILY leflunomide (ARAVA) 20 mg tablet Take 1 tablet by mouth once daily. diclofenac sodium (VOLTAREN) 1 % topical gel apply topically 4 grams to foot four times a day cholecalciferol (VITAMIN D-3) 2,000 unit tablet Take 2,000 Units by mouth once daily. DENOSUMAB (PROLIA SUBCUTANEOUS) Inject subcutaneously once every 6 months. celecoxib (CELEBREX) 200 mg capsule Take 200 mg by mouth as needed. Magnesium Oxide 500 mg tab Taking 250mg. Take two tablets by mouth once daily. acetaminophen (TYLENOL EXTRA STRENGTH) 500 mg tablet Take 500 mg by mouth every 8 hours as needed. CPAP CHIN STRAP, USED WITH CPAP DEVICE fluticasone (FLONASE) 50 mcg/actuation nasal spray Use 1 [place] in each nostril daily at bedtime. ferrous sulfate 325 mg (65 mg iron) tablet Take 325 mg by mouth three times daily with meals. ascorbic acid (VITAMIN C) 500 mg tablet Take 500 mg by mouth three times daily. CPAP AutoPAP 10-20 cmH2O, suitable mask, humidity, filters. Lif[employer] supplies. Dx: [phone]. Fax compliance rpt to [phone] in 4-6 weeks. cyclobenzaprine (FLEXERIL) 10 mg tablet levothyroxine (LEVOTHROID) 50 mcg tablet Take 50 mcg by mouth daily before breakfast. CLOBETASOL 0.05 % cream as directed gabapentin 300 mg capsule Take 300 mg by mouth three times daily. PROMETHAZINE 25 MG TAB Take one(1) tablet every four(4) to six(6) hours as needed for nausea. lorazepam(ATIVAN 1 MG TAB) takes 1/2 tab as needed fentanyl 50 mcg/hr TRANSDERM. PT72 Apply as directed. Change patch every 3 days. B COMPLEX 1 TAB Take one(1) tablet daily. MULTIVITAMIN,TX-MINERALS TAB 1 tab daily No current facility-administered medications for this visit. Allergies: Adhesive Tape (Rosins); Morphine; Nsaids (Non-Steroidal Anti-Inflammatory Drug); Vasotec [Enalapril Maleate] This note was partially generated using [employer] voice recognition system, and there may be some incorrect words, spellings, and punctuation that were not noted in checking the note before saving. Irene De Paz PA-C PROGRESS Observed: 09/15/2017 Status: COMPLETED Source: [place] 8:44 AM [facility] [place] REPOSITORY HNO ID: [id number] Author: Maida NolascoRn) EVER Rubio Service: (none) Author Type: Registered Nurse Type: Progress Notes Filed: 09/15/2017 9:29 AM Note Text: AMB ROOMING INTAKE FLOWSHEET DATA Risk Screening Do you have concerns about personal safety or safety in the home?: No Pain Pain Score: 8/10 Pain Location: (Right index, middle and 5th ) Description: Burning, Sharp, Throbbing Duration Amount of Time: 1 (3 days ) Duration Units: Weeks Frequency: Intermittent Intervention: Cold, Medication (vicodin ) Patient presents with: Established Patient: 1 week 3 days postop Right index and middle DIP joint fusion and Right 5th PIP joint fusion-OT at [facility] patient is here for postop follow up. Tello and kerlex removed. Bruising present. Slight redness present, but no other s/s of infection. Sutures present on right index, middle and 5th finger. Maida Rubio RN CNOV Observed: 09/15/2017 Status: COMPLETED Source: [place] 8:30 AM [facility] [place] REPOSITORY Office Visit (ORTHWS) RENAE ELIZONDO ([id number]) 1955 F Date Time Provider Department 09/15/17 8:30 AM IRENE DE PAZ) FEMI During your visit today, we recorded the following information about you: Maida Rubio RN, RN 09/15/2017 9:29 AM Signed AMB ROOMING INTAKE FLOWSHEET DATA Risk Screening Do you have concerns about personal safety or safety in the home?: No Pain Pain Score: 8/10 Pain Location: (Right index, middle and 5th ) Description: Burning, Sharp, Throbbing Duration Amount of Time: 1 (3 days ) Duration Units: Weeks Frequency: Intermittent Intervention: Cold, Medication (vicodin ) Patient presents with: Established Patient: 1 week 3 days postop Right index and middle DIP joint fusion and Right 5th PIP joint fusion-OT at [facility] patient is here for postop follow up. Tello and kerlex removed. Bruising present. Slight redness present, but no other s/s of infection. Sutures present on right index, middle and 5th finger. EVER Davis PA-C 09/15/2017 9:29 AM Signed Irene De Paz PA-C Department of Orthopaedics Orthopaedics [address] [facility] [address] Dept: [phone] Dept September 15, 2017 CHIEF COMPLAINT: Established Patient (1 week 3 days postop Right index and middle DIP joint fusion and Right 5th PIP joint fusion-OT at [facility] ). 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 She states that she is having a lot more pain in her index and middle finger and she did with her previous left hand fusion. Pain today is an 8 out of 10 burning, sharp, throbbing. She has been icing and elevating as well as taking Vicodin for pain. We will remove her sutures today. She was encouraged to continue icing and elevating for pain we will also provide her with a refill for pain medication. Patient will follow up in 1 month. Exam: Incision sites across the right index and middle DIP joint are well approximated without erythema, discharge or drainage. Incision over the pinky PIP joint is also well approximated without erythema, discharge or drainage. Sutures are clean dry and intact. There is a mild amount of edema in the right index, middle and pinky fingers. Resolving ecchymosis at the right index and middle DIP joints as well as the first through fifth MCP joints. Patient is able to flex and extend the index and middle finger at the PIP and MCP joints. Patient is able to flex and extend the pinky finger at the MCP joint. Patient is neurologically intact. Imaging: deferred today Ms. Renae Elizondo was advised as to contrast therapies and/or to take analgesics/anti-inflammatories as needed and all contraindications were reviewed. Supporting Information Below: Medications: Current Outpatient Prescriptions: HYDROcodone-acetaminophen (NORCO) 5-325 mg per tablet Take 1-2 tablets by mouth every 6 hours as needed for up to 7 days. In accordance to [facility] guidelines, this serves as official documentation that this patient had a major orthopaedic surgery in the past 3 months. It is appropriate for this patient to be prescribed narcotic medication because of these scenarios extending greater than the allotted MED requirement or 7 day limit hydroxychloroquine (PLAQUENIL) 200 mg tablet TAKE ONE TABLET BY MOUTH TWICE DAILY leflunomide (ARAVA) 20 mg tablet Take 1 tablet by mouth once daily. diclofenac sodium (VOLTAREN) 1 % topical gel apply topically 4 grams to foot four times a day cholecalciferol (VITAMIN D-3) 2,000 unit tablet Take 2,000 Units by mouth once daily. DENOSUMAB (PROLIA SUBCUTANEOUS) Inject subcutaneously once every 6 months. celecoxib (CELEBREX) 200 mg capsule Take 200 mg by mouth as needed. Magnesium Oxide 500 mg tab Taking 250mg. Take two tablets by mouth once daily. acetaminophen (TYLENOL EXTRA STRENGTH) 500 mg tablet Take 500 mg by mouth every 8 hours as needed. CPAP CHIN STRAP, USED WITH CPAP DEVICE fluticasone (FLONASE) 50 mcg/actuation nasal spray Use 1 [place] in each nostril daily at bedtime. ferrous sulfate 325 mg (65 mg iron) tablet Take 325 mg by mouth three times daily with meals. ascorbic acid (VITAMIN C) 500 mg tablet Take 500 mg by mouth three times daily. CPAP AutoPAP 10-20 cmH2O, suitable mask, humidity, filters. Lifetime supplies. Dx: 327.23. Fax compliance rpt to [phone] in 4-6 weeks. cyclobenzaprine (FLEXERIL) 10 mg tablet levothyroxine (LEVOTHROID) 50 mcg tablet Take 50 mcg by mouth daily before breakfast. CLOBETASOL 0.05 % cream as directed gabapentin 300 mg capsule Take 300 mg by mouth three times daily. PROMETHAZINE 25 MG TAB Take one(1) tablet every four(4) to six(6) hours as needed for nausea. lorazepam(ATIVAN 1 MG TAB) takes 1/2 tab as needed fentanyl 50 mcg/hr TRANSDERM. PT72 Apply as directed. Change patch every 3 days. B COMPLEX 1 TAB Take one(1) tablet daily. MULTIVITAMIN,TX-MINERALS TAB 1 tab daily No current facility-administered medications for this visit. Allergies: Adhesive Tape (Rosins); Morphine; Nsaids (Non-Steroidal Anti-Inflammatory Drug); Vasotec [Enalapril Maleate] This note was partially generated using [employer] voice recognition system, and there may be some incorrect words, spellings, and punctuation that were not noted in checking the note before saving. Irene De Paz PA-C Referring Provider: JORGE MARTINEZ [[id number]] Allergies As of Date: 09/15/2017 Noted Allergy Reaction ADHESIVE TAPE (ROSINS) 02/13/2006 2 - Rash Comments: tore skin/blisters MORPHINE 02/05/2006 5 - Intolerance Comments: vomiting, shaking. NSAIDS (NON-STEROIDAL ANTI-INFLAM*10/05/2014 11 - Vomiting VASOTEC (ENALAPRIL MALEATE) 09/08/2008 Comments: nausea/doesn't work Date Reviewed: 09/15/2017 Reviewed by: Irene De Paz (Pa) - Fully Assessed Reason for Visit: Established Patient [175] Cmt: 1 week 3 days postop Right index and middle DIP joint fusion and Right 5th PIP joint fusion-OT at [facility] Primary Visit Diagnosis:Osteoarthritis of finger of right hand [M19.041] Other Visit Diagnosis:Post-operative pain [G89.18] Order(s):HYDROcodone-acetaminophen (NORCO) 5-325 mg per tabletTake 1-2 tablets by mouth every 6 hours as needed for up to 7 days. In accordance to [facility] guidelines, this serves as official documentation that this patient had a major orthopaedic surgery in the past 3 months. It is appropriate for this patient to be prescribed narcotic medication because of these scenarios extending greater than the allotted MED requirement or 7 day limitDisp: 20 tabletRfl: 0 Prescriptions as of 09/15/2017 Sig: HYDROCODONE 5 MG-ACETAMINOPHE* Take 1-2 tablets by mouth heather* HYDROXYCHLOROQUINE 200 MG TAB* TAKE ONE TABLET BY MOUTH TWIC* LEFLUNOMIDE 20 MG TABLET Take 1 tablet by mouth once d* DICLOFENAC 1 % TOPICAL GEL apply topically 4 grams to fo* CHOLECALCIFEROL (VITAMIN D3) * Take 2,000 Units by mouth onc* PROLIA SUBCUTANEOUS Inject subcutaneously once e* CELECOXIB 200 MG CAPSULE Take 200 mg by mouth as neede* MAGNESIUM OXIDE 500 MG TABLET Taking 250mg. Take two tablet* ACETAMINOPHEN 500 MG TABLET Take 500 mg by mouth every 8 * CPAP CHIN STRAP, USED WITH CPAP DE* FLUTICASONE 50 MCG/ACTUATION * Use 1 [place] in each nostril d* FERROUS SULFATE 325 MG (65 MG* Take 325 mg by mouth three ti* ASCORBIC ACID (VITAMIN C) 500* Take 500 mg by mouth three ti* CPAP AutoPAP 10-20 cmH2O, suitable* CYCLOBENZAPRINE 10 MG TABLET LEVOTHYROXINE 50 MCG TABLET Take 50 mcg by mouth daily be* CLOBETASOL 0.05 % TOPICAL CRE* as directed * GABAPENTIN 300 MG CAPSULE Take 300 mg by mouth three ti* * PROMETHAZINE 25 MG TABLET Take one(1) tablet every four* * ATIVAN 1 MG TABLET takes 1/2 tab as needed * FENTANYL 50 MCG/HR TRANSDERMA* Apply as directed. Change pat* * B COMPLEX 1 TABLET Take one(1) tablet daily. * MULTIVITAMIN,TX-MINERALS TABL* 1 tab daily Problem List As Of Date 09/15/2017 Noted Resolved LUMP OR MASS IN BREAST [N63.0] INVALID FOR* MALIG NEOPLASM BREAST-CENTRAL [C50.119] INVALID FOR* SEROMA, POST OP [[id number]] INVALID FOR*09/30/2016 ANEMIA NOS [D64.9] INVALID FOR* Sacroiliac joint pain [M53.3] INVALID FOR* Benign neoplasm of skin of trunk, except scrotu*INVALID FOR* HARRISON (obstructive sleep apnea) AHI 13, but with *INVALID FOR* More... RLS (restless legs syndrome) [G25.81] INVALID FOR* Low ferritin level [R79.0] INVALID FOR* Sarcoidosis (HCC) [D86.9] INVALID FOR* Nasal congestion, nocturnal. 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 Pain in finger of right hand [M79.644] INVALID FOR* More... 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 Obesity, Class III, BMI >= 40 [E66.01] INVALID FOR* Prescriptions ordered this encounter Disp Refills Start End HYDROCODONE 5 MG-ACETAMINOPHEN 325 M* 20 t* 0 09/15/2017 09/22/2017 Class: Print RX Route: ORAL Sig: Take 1-2 tablets by mouth every 6 hours as needed for up to 7 days. In accordance to [facility] guidelines, this serves as official documentation that this patient had a major orthopaedic surgery in the past 3 months. It is appropriate for this patient to be prescribed narcotic medication because of these scenarios extending greater than the allotted MED requirement or 7 day limit Medications Discontinued During This Encounter HYDROcodone-acetaminophen (NORCO) 5-* 30 t* 0 05/09/2017 09/15/2017 Class: Print RX Route: ORAL Sig: Take 1-2 tablets by mouth every 6 hours as needed for up to 7 days. In accordance to [facility] guidelines, this serves as official documentation that this patient had a major orthopaedic surgery in the past 3 months. It is appropriate for this patient to be prescribed narcotic medication because of these scenarios extending greater than the allotted MED requirement or 7 day limit Disc: Reason for discontinue is not on file. Encounter Status:Closed by IRENE DE PAZ PA-C on 09/15/17 PROGRESS Observed: 09/11/2017 Status: COMPLETED Source: [place] 10:49 AM [facility] [place] REPOSITORY O ID: [id number] Author: Agnes (Pt) Oni Service: (none) Author Type: Physical Therapist Type: Progress Notes Filed: 09/11/2017 12:00 PM Note Text: Episode Visit Count: 14 Therapist That Will Oversee The Plan Of Care: Kat Milton Start of Care Date: 07/14/17 Onset Date: 02/17/17 Patient Identified by Name and Date of : Yes REHABILITATION AND SPORTS THERAPY PHYSICAL THERAPY TREATMENT NOTE ASSESSMENT: Renae Elizondo demonstrated no specific change in gait or swelling of left foot. Deferred use of st cane today as patient recently had surgery on right hand and she would have needed to use cane in right hand. Patient with discomfort with AROM if she moves too far in motion left foot. The patient will continue to benefit from continued skilled physical therapy for progression of exercise , gait and manual therapy techniques for pain control to improve function. PLAN FOR NEXT VISIT: continue with exercise activiely, gait and retrograde massage as needed. SUBJECTIVE: Patient reports she had surgery on last Friday on right hand. Patient reports decrease activity due to right hand and the foot is not feeling too bad today. Pain Score: 6/10 Pain Location: Foot - Left Description: Aching Frequency: Continuous Post Treatment Pain Score: No Change OBJECTIVE MEASURES WITH LEVEL OF FUNCTION: Slow hesistent gait with walker and without assistive device with boot on and with shoe on. TREATMENT: Therapeutic Exercise: 1: AROM ankle pumps x 15 reps 2: AROM ankle inv/ever x 15 reps 4: ankle alphabet x1 5: Seated BAPS PWB left ball 2 A/P, lateral and cw and ccw x5 each. 6: Yellow band left resistive df,pf,inv and evr 1x10. Skilled Intervention: Patient was educated in proper exercise technique and purpose for exercises. Skilled judgment was provided in selection of appropriate interventions. Manual Therapy: 2: Retrograde massage left foot in elevation x 12 minutes. Skilled Intervention: Manual skills to improve joint mobility, ROM, and decrease pain. Utilized anatomy knowledge of the therapist, and assessment of patient's response to intervention. Gait Trainin: Gait in ll bars with instruction on heel strike, foot flat and push off over toes on left during swing through of gait with 2 UE assist from ll bars.. 2: Side stepping in // bars back and forth x 1 each direction. 3: Gait with walker with shoe on short distances with minimal push offf on left during swing though of gait. Skilled Intervention: Patient was provided supervision during pre-gait/gait training to prevent falls and insure safety. Gait belt utilized during session for safety. Billing: [facility]: Therapeutic Exercise (12931): 1:1 time: 22 minutes (1 unit: 8-22 mins) Manual Therapy (88701): 1:1 time: 12 minutes (1 unit: 8-22 mins) Gait Training (66015): 1:1 time: 10 minutes (1 unit: 8-22 mins) Total time: 44 minutes HEATHER Jean/Agnes Bunn PT CNTHERAPY Observed: 09/11/2017 Status: COMPLETED Source: [place] 10:00 AM [facility] [place] REPOSITORY OT/PT/Speech Visit (PTWS) RENAE ELIZONDO ([id number]) 1955 F Date Time Provider Department 09/11/17 10:00 AM RITA SUN (BOO) PTWS Date Time Provider Department Center 09/11/2017 10:00 AM [id number], NANCY (BOO) PTWS [facility] Reason for Visit: Physical Therapy [503] Primary Visit Diagnosis:Arthritis, midfoot [M19.079] Allergies As of Date: 09/11/2017 Noted Allergy Reaction ADHESIVE TAPE (ROSINS) 02/13/2006 2 - Rash Comments: tore skin/blisters MORPHINE 02/05/2006 5 - Intolerance Comments: vomiting, shaking. NSAIDS (NON-STEROIDAL ANTI-INFLAM*10/05/2014 11 - Vomiting VASOTEC (ENALAPRIL MALEATE) 09/08/2008 Comments: nausea/doesn't work Date Reviewed: 09/05/2017 Reviewed by: Lilian (Rn) EVER Nuñez - Fully Assessed Prescriptions as of 09/11/2017 Sig: HYDROCODONE 5 MG-ACETAMINOPHE* Take 1-2 tablets by mouth heather* HYDROXYCHLOROQUINE 200 MG TAB* TAKE ONE TABLET BY MOUTH TWIC* LEFLUNOMIDE 20 MG TABLET Take 1 tablet by mouth once d* DICLOFENAC 1 % TOPICAL GEL apply topically 4 grams to fo* CHOLECALCIFEROL (VITAMIN D3) * Take 2,000 Units by mouth onc* PROLIA SUBCUTANEOUS Inject subcutaneously once e* CELECOXIB 200 MG CAPSULE Take 200 mg by mouth as neede* MAGNESIUM OXIDE 500 MG TABLET Taking 250mg. Take two tablet* ACETAMINOPHEN 500 MG TABLET Take 500 mg by mouth every 8 * CPAP CHIN STRAP, USED WITH CPAP DE* FLUTICASONE 50 MCG/ACTUATION * Use 1 [place] in each nostril d* FERROUS SULFATE 325 MG (65 MG* Take 325 mg by mouth three ti* ASCORBIC ACID (VITAMIN C) 500* Take 500 mg by mouth three ti* CPAP AutoPAP 10-20 cmH2O, suitable* CYCLOBENZAPRINE 10 MG TABLET LEVOTHYROXINE 50 MCG TABLET Take 50 mcg by mouth daily be* CLOBETASOL 0.05 % TOPICAL CRE* as directed * GABAPENTIN 300 MG CAPSULE Take 300 mg by mouth three ti* * PROMETHAZINE 25 MG TABLET Take one(1) tablet every four* * ATIVAN 1 MG TABLET takes 1/2 tab as needed * FENTANYL 50 MCG/HR TRANSDERMA* Apply as directed. Change pat* * B COMPLEX 1 TABLET Take one(1) tablet daily. * MULTIVITAMIN,TX-MINERALS TABL* 1 tab daily Progress Notes: Agnes Bunn, PT 09/11/2017 12:00 PM Signed Episode Visit Count: 14 Therapist That Will Oversee The Plan Of Care: Kat Milton Start of Care Date: 07/14/17 Onset Date: 02/17/17 Patient Identified by Name and Date of : Yes REHABILITATION AND SPORTS THERAPY PHYSICAL THERAPY TREATMENT NOTE ASSESSMENT: Renae Elizondo demonstrated no specific change in gait or swelling of left foot. Deferred use of st cane today as patient recently had surgery on right hand and she would have needed to use cane in right hand. Patient with discomfort with AROM if she moves too far in motion left foot. The patient will continue to benefit from continued skilled physical therapy for progression of exercise , gait and manual therapy techniques for pain control to improve function. PLAN FOR NEXT VISIT: continue with exercise activiely, gait and retrograde massage as needed. SUBJECTIVE: Patient reports she had surgery on last Friday on right hand. Patient reports decrease activity due to right hand and the foot is not feeling too bad today. Pain Score: 6/10 Pain Location: Foot - Left Description: Aching Frequency: Continuous Post Treatment Pain Score: No Change OBJECTIVE MEASURES WITH LEVEL OF FUNCTION: Slow hesistent gait with walker and without assistive device with boot on and with shoe on. TREATMENT: Therapeutic Exercise: 1: AROM ankle pumps x 15 reps 2: AROM ankle inv/ever x 15 reps 4: ankle alphabet x1 5: Seated BAPS PWB left ball 2 A/P, lateral and cw and ccw x5 each. 6: Yellow band left resistive df,pf,inv and evr 1x10. Skilled Intervention: Patient was educated in proper exercise technique and purpose for exercises. Skilled judgment was provided in selection of appropriate interventions. Manual Therapy: 2: Retrograde massage left foot in elevation x 12 minutes. Skilled Intervention: Manual skills to improve joint mobility, ROM, and decrease pain. Utilized anatomy knowledge of the therapist, and assessment of patient's response to intervention. Gait Trainin: Gait in ll bars with instruction on heel strike, foot flat and push off over toes on left during swing through of gait with 2 UE assist from ll bars.. 2: Side stepping in // bars back and forth x 1 each direction. 3: Gait with walker with shoe on short distances with minimal push offf on left during swing though of gait. Skilled Intervention: Patient was provided supervision during pre-gait/gait training to prevent falls and insure safety. Gait belt utilized during session for safety. Billing: [facility]: Therapeutic Exercise (51309): 1:1 time: 22 minutes (1 unit: 8-22 mins) Manual Therapy (28794): 1:1 time: 12 minutes (1 unit: 8-22 mins) Gait Training (44201): 1:1 time: 10 minutes (1 unit: 8-22 mins) Total time: 44 minutes Rita Sun PT-A/Agnes Bunn PT Previous Version Follow-up and Disposition History Recorded ANES POST Observed: 09/05/2017 Status: COMPLETED Source: [place] 11:25 AM [facility] OTHER CAMPUS REPOSITORY O ID: [id number] Author: Gerardo Singh Service: Anesthesiology Author Type: Anesthesiologist Type: Anesthesia PostOp Filed: 09/05/2017 11:25 AM Note Text: POST ANESTHESIA EVALUATION NOTE SERVICE DATE: 09/05/2017 SERVICE TIME: 11:25 AM : 1955 Vitals: 09/05/17 0632 09/05/17 1058 Temp: 36.8 ?C (98.2 ?F) 36.8 ?C (98.2 ?F) 09/05/1732 09/05/17 1058 BP: 132/71 119/60 09/05/17 0632 09/05/17 1058 Pulse: 71 71 09/05/17 0632 09/05/17 1058 Resp: 18 16 09/05/1732 09/05/17 1058 SpO2: 96% 97% Validated Vital Signs: Yes POST ANES STATUS: No apparent anesthetic complications. The patient is appropriately hydrated with stable respiratory and cardiovascular status. Patient has safe and adequate airway control. The patient has appropriate pain relief and no significant post operative nausea or vomiting. The patient has achieved baseline mental status. Further assessment by Anesthesia Service: None Other Remarks: SIGNATURE: Gerardo Singh MD PATIENT NAME: Renae Elizondo DATE: September 05, 2017 TIME: 11:25 AM PAGER/CONTACT #: [phone] OPERATIVE NO Observed: 09/05/2017 Status: COMPLETED Source: [place] 11:02 AM [facility] OTHER CAMPUS REPOSITORY HNO ID: [id number] Author: Jorge Martinez Service: Orthopaedic Surgery Author Type: Physician Type: Operative Report Filed: 09/08/2017 9:19 AM Note Text: OPERATIVE/PROCEDURE REPORT LOG ID: [id number] SURGERY/PROCEDURE DATE: 09/05/2017 INCISION/PROCEDURE START TIME: 8:05 AM INCISION CLOSE/PROCEDURE END TIME: 10:38 AM SURGEON(S)/PROCEDURALIST(S) AND AIR DRIER 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 Right, small finger, Proximal interphalangeal joint fusion. 2. Right, middle finger, Distal interphalangeal joint fusion. 3. Right, index finger, Distal interphalangeal joint fusion. ANESTHESIA: General with local. SURGERY/PROCEDURE DETAILS: this is a pleasant, 62-year-old female with severe osteoarthritis of multiple finger joints. She previously underwent successful DIP fusions on the left hand. In the office, she wished to proceed with her index and middle finger DIP fusions as well as a painful and stiff small finger PIP joint. The risks, benefits, alternatives and potential consultations were reviewed, and she scheduled surgical involvement. On 09/05/2017, the patient was clearly identified in the preoperative area and marked accordingly on the right index, middle and small fingers. She received 2 g of Ancef in the IV within 1 hour of incision or tourniquet. She was taken to the operative suite and placed in a supine position with an arm board on the right. Anesthesia assumed care of the head and neck for the remainder of the case. All other bony landmarks were appropriately padded in standard fashion. The right upper extremity was then sterilely prepped and draped in standard fashion. An appropriate timeout was conducted and all in the room were in agreement, signed consent form was on the chart, images were available for viewing and implants were in the room with representation. 3 sites were marked accordingly by myself prior to anesthesia. 1% lidocaine with 1 100,000 epinephrine was provided on the dorsum of all 3 digits for 2 cc and a second 2 mL were provided on the volar surface. I began with the index finger. A turnicot was applied and a H type of incision was made over the DIP joint. There are significant osteophytes after I came down through the extensor tendon. The collaterals were taken down and the joint was shotgunned. The surfaces were completely eburnated and had unequal grooves into the subchondral bone. I used a bony rongeur to get a nice bleeding surface which was perpendicular and both planes to the distal phalanx. Then, retracting the soft tissues, used a small reciprocating blade to make a fresh and perpendicular cut to the distal portion of the middle phalanx. I checked on fluoroscopy to make sure the surfaces were both perpendicular to one another and all of the severe osteophytes were removed for nicely contoured fusion site. These were to my liking, thus I selected a pin from the [employer] headless screw set and I first made my center on Center pin placement on the middle phalanxin a retrograde fashion. I then in a anterograde fashion took the K wire out through the tip of the distal phalanx, I placed the blunt end back into the drill hole that I made for the middle phalanx and checked the positioning and the fusion site on plain films. I then used the drill to breach the distal cortex after a 15 blade was used to get down to the bony surface. I then measured and selected the appropriate length [employer] headless screw and placed this across with excellent compression and excellent positioning of the screw. The wound was copiously irrigated. Due to the severity of the distal phalanx segment, the extensor tendon was not able to be repaired over the fusion site, thus I closed with nylons and remove the turnicot and placed a temporary soft bandage. I then moved on to the middle finger and carried out the previous steps in the exact same fashion. The joint again, was completely eburnated of cartilage down to subchondral bone and there was gross deformity at the joint and significant osteophytes. Surfaces were again contoured to make an excellent fusion surface. My pin was passed again in exact same fashion. I measured drilled and selected the appropriately length screw. I checked on multiple planes with fluoroscopy and the positioning and fusion site was to my liking. On the middle finger, I was able to get a few buried Polysorb sutures into the tendon to close over the fusion site. The turnicot was similarly removed and hemostasis was taken care of with bipolar electrocautery. Closure of the middle finger 8 type of incision was also closed with 4-0 nylon sutures. A temporary gauze bandage was applied to the middle finger. I then moved on to the small digit. A longitudinal incision was made over the PIP joint. The extensor mechanism was split down the center to expose the joint. It was significantly arthritic with incongruity of the joint surfaces. I again contoured the surfaces of the bone with a rongeur, and made a cut which would integrate basically a similar bend in the joint that she previously had which was to her liking. I checked the surfaces to make sure the angle was appropriate on x-ray. I then selected a K wire and drilled it retrograde from the proximal phalanx, distal cut edge and brought this up through the dorsal cortex proximally. I then passed the wire from the dorsal side through and into the middle phalanx. I used a similar K wire to make a transverse hole in the middle phalanx to accept the surgical wire. I then selected a 24-gauge surgical wire and fashioned this into a [id number] tension band looping it under the K wire on the proximal side. I tensioned down the fusion site nicely with the tension band. I backed out the K wire slightly indented over using a [place] tip suction catheter and needle straddle bug driver. I then malleted in the K wire back into its original position, securing the bent edge over the tension band. I was able to, as best I could, Christian the hardware on the sides of it would not be prominent. I copiously irrigated the wound out. Took final imaging showing excellent positioning of the fusion with compression and appropriate position hardware. I then one final time check the contour of the finger which was excellent. The epinephrine used on the small digit was in full effect so as I did not require the turnicot on the small digit. I was able to repair the extensor mechanism over the top with a 3-0 Monocryl suture. Final skin closure was completed with a 4-0 nylon suture. Xeroform gauze was then placed on all 3 surgical sites. 4 x 4's and a light Rodrigo wrap and a Coban and soft bandage at all 3 sites. There were no complications during the procedures. Patient was safely awoken and transferred to the postanesthetic care unit in stable condition. PRE-OP/PRE-PROCEDURE DIAGNOSIS: Pain and primary osteoarthritis of Right, index, middle, and small fingers. POST-OP/POST-PROCEDURE DIAGNOSIS: same ESTIMATED BLOOD LOSS: 15 mls SPECIMENS: None IMPLANTABLE DEVICES: 2 osteomed screws. 0.035 Kwire and 26g surgical wire. DRAINS: None COMPLICATIONS: None PARTICIPATION IN SURGERY/PROCEDURE: I performed the procedure with assistance. No qualified resident/fellow was available. SIGNATURE: Jorge Martinez MD PATIENT NAME: Renae Elizondo DATE: September 05, 2017 TIME: 11:02 AM PAGER/CONTACT #: [id number] FLUOROSCOPY Observed: 09/05/2017 Status: F Source: [place] 10:41 AM [facility] REPOSITORY * * *Final Report* * * DATE OF EXAM: Sep 05 2017 10:41AM [facility] 5513 - XR FLUOROSCOPY / PROCEDURE REASON: ARTHRODESIS RIGHT INDEX FINGER DISTAL IP JOINT * * * * Physician Interpretation * * * * INDICATION: ARTHRODESIS RIGHT INDEX FINGER DISTAL IP JOINT TECHNIQUE: Fluoroscopy with 4 views of the right fingers Fluoroscopic Radiation Summary: Plane A, Air Kerma: 107.4 mGy Dose Area Product (DAP): 0.0 mGy*cmS2 Fluoro time: 5:37 min:sec FINDINGS/ IMPRESSION: Images obtained in the operating room show interval hardware 36 of the 5th PIP joint with pin and cerclage wires. Arthrodesis of the 2nd and 3rd the IP joints is again evident, similar to preoperative images from 08/25/2017. Please refer to the performing LIP's report. 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: PSCB Transcribe Date/Time: Sep 05 2017 4:02P Dictated by : JOSHUA RIGGS MD This examination was interpreted and the report reviewed and electronically signed by: JOSHUA RIGGS MD on Sep 05 2017 4:03PM EST [id number] ANES PREOP Observed: 09/05/2017 Status: COMPLETED Source: [place] 7:09 AM [facility] REPOSITORY HNO ID: [id number] Author: Gerardo Singh Service: Anesthesiology Author Type: Anesthesiologist Type: Anesthesia PreOp Filed: 09/05/2017 7:09 AM Note Text: ANESTHESIOLOGY DAY OF SURGERY NOTE SERVICE DATE: 09/05/2017 SERVICE TIME: 7:09 AM : 1955 Procedure(s) (LRB): ARTHRODESIS INTERPHALANGEAL JOINT Right index finger distal IP joint fusion Right middle finger, distal IP joint fusion RIght small finger, middle IP joint fusion (Right) Surgeon(s): Jorge Martinez Estimated body mass index is 40.82 kg/m? as calculated from the following: Height as of this encounter: 152.4 cm (5'). Weight as of this encounter: 94.8 kg (209 lb). 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) Arthritis of Left Foot Osteoarthritis of Foot, Left Arthritis, Midfoot Pain in Finger of Right Hand Primary Osteoarthritis of Right Hand PAST MEDICAL HISTORY Diagnosis Date - Anemia - Hypothyroidism - Malignant neoplasm of breast (female), unspecified site - Obstructive sleep apnea - Other and unspecified diseases of upper respiratory tract - RA (rheumatoid arthritis) (HCC) - S/P gastric bypass - Sarcoidosis (HCC) PAST SURGICAL HISTORY Procedure Laterality Date - APPENDECTOMY 2000 Done with gastric bypass - COLONOSCOP W/ OR W/O [facility] SPEC 12/05/2008,12 Colonoscopy - GASTRIC BYPASS-MORBID OBESITY 2000 - MASTECTOMY, MODIFIED RADICAL 08/27/2006 Right MRM - PAST SURGICAL HISTORY OF 2000 venous ligation leg - PAST SURGICAL HISTORY OF Carpal Tunnel - PAST SURGICAL HISTORY OF Left thumb repair - PAST SURGICAL HISTORY OF port acath LEFT - PAST SURGICAL HISTORY OF removal of port - PAST SURGICAL HISTORY OF Left 01/2017 lt 2nd AND 3rd digit repair - OR ANESTH,REPAIR LO ABD HERNIA NOS - OR ANESTH,VAGINAL HYSTERECTOMY 2003 BSO - REMOVAL GALLBLADDER 1992 Cholecystectomy FAMILY HISTORY Problem Relation Age of Onset - Diabetes Mother - Colon Cancer Mother pancreatic cancer - Cancer Mother pancreatic - Colon Cancer Father at age 75 or 76 - Cancer Father - Parkinson's disease [OTHER] Father - Diabetes Brother - Diabetes Paternal Grandmother - Diabetes Maternal Grandmother - Ischemic Heart Disease Maternal Grandfather - Hypertension Sister - Hypertension Brother - Stroke Paternal Grandfather - Allergies Sister - Allergies Brother - Cancer Sister uterine/ lung/ liver - Cancer Brother melanoma/ brain/ tongue Social History: Social History Substance Use Topics - Smoking status: Never Smoker - Smokeless tobacco: Never Used - Alcohol use Yes Comment: occasionally glass wine or mixed drink No current facility-administered medications on file prior to encounter. Current Outpatient Prescriptions on File Prior to Encounter: hydroxychloroquine (PLAQUENIL) 200 mg tablet TAKE ONE TABLET BY MOUTH TWICE DAILY leflunomide (ARAVA) 20 mg tablet Take 1 tablet by mouth once daily. diclofenac sodium (VOLTAREN) 1 % topical gel apply topically 4 grams to foot four times a day cholecalciferol (VITAMIN D-3) 2,000 unit tablet Take 2,000 Units by mouth once daily. celecoxib (CELEBREX) 200 mg capsule Take 200 mg by mouth as needed. Magnesium Oxide 500 mg tab Taking 250mg. Take two tablets by mouth once daily. ferrous sulfate 325 mg (65 mg iron) tablet Take 325 mg by mouth three times daily with meals. ascorbic acid (VITAMIN C) 500 mg tablet Take 500 mg by mouth three times daily. levothyroxine (LEVOTHROID) 50 mcg tablet Take 50 mcg by mouth daily before breakfast. CLOBETASOL 0.05 % cream as directed PROMETHAZINE 25 MG TAB Take one(1) tablet every four(4) to six(6) hours as needed for nausea. fentanyl 50 mcg/hr TRANSDERM. PT72 Apply as directed. Change patch every 3 days. B COMPLEX 1 TAB Take one(1) tablet daily. MULTIVITAMIN,TX-MINERALS TAB 1 tab daily DENOSUMAB (PROLIA SUBCUTANEOUS) Inject subcutaneously once every 6 months. acetaminophen (TYLENOL EXTRA STRENGTH) 500 mg tablet Take 500 mg by mouth every 8 hours as needed. CPAP CHIN STRAP, USED WITH CPAP DEVICE fluticasone (FLONASE) 50 mcg/actuation nasal spray Use 1 [place] in each nostril daily at bedtime. CPAP AutoPAP 10-20 cmH2O, suitable mask, humidity, filters. Lifetime supplies. Dx: 327.23. Fax compliance rpt to [phone] in 4-6 weeks. cyclobenzaprine (FLEXERIL) 10 mg tablet gabapentin 300 mg capsule Take 300 mg by mouth three times daily. lorazepam(ATIVAN 1 MG TAB) takes 1/2 tab as needed Current Facility-Administered Medications: lactated ringers infusion 5-30 mL/hr INTRAVENOUS CONTINUOUS Irene (Pa) Vetovitz Last Rate: 30 mL/hr at 09/05/17 0630 30 mL/hr at 09/05/17 0630 ceFAZolin iv piggyback 2 g in D5W (iso-osmotic) 100 mL (ANCEF) 2 g INTRAVENOUS Pre-Op Once Irene (Pa) Vetovitz Allergies: ALLERGIES Allergen Reactions - Adhesive Tape (Love* Rash tore skin/blisters - Morphine Intolerance vomiting, shaking. - Nsaids (Non-Steroid* Vomiting - Vasotec [Enalapril * nausea/doesn't work DOS EXAM: Adequate NPO status: Yes Anesthetic risks, benefits, alternatives, personnel and consent discussed: Yes Patient agrees to proceed: Yes Previous Anesthesia: No history of adverse event. Airway Assessment: MP 2; Neck ROM: Full ROM without neurologic symptoms; Airway Evaluation: No significant abnormalities Symptoms of Sleep Apnea: None Dentition: Teeth intact Additional Physical Exam: Lungs: Patient health status unchanged since recent history and physical. See history and physical for exam findings. Cardiac: Patient health status unchanged since recent history and physical. See history and physical for exam findings. Additional Pertinent Findings: N/A Blood Products: Not anticipated for this procedure. Anesthetic Plan: General, Standard ASA Monitors Pain Management Plan: Parenteral or Oral ASA Class: 3 Other Medical Problems: Morbid Obesity-BMI 40.8 RA - on Plaquenil Sarcoidosis - stable h/o right Breast cancer Chronic pain Fentanyl patch HARRISON- on CPAP H/o gastric bypass I have interviewed and examined the patient. I have reviewed the medical record and/or the pre-anesthesia evaluation, pertinent labs, and test results. Significant changes in the patient's condition since the History and Physical, not otherwise documented in primary service progress notes: No This contains updated information obtained within 48 hours of Surgery/Procedure. SIGNATURE: Gerardo Singh MD PATIENT NAME: Renae Elizondo DATE: September 05, 2017 TIME: 7:09 AM CSN: [id number] PT ED Observed: 09/05/2017 Status: COMPLETED Source: [place] 6:22 AM [facility] OTHER CAMPUS REPOSITORY HNO ID: [id number] Author: Kenneth NolascoRn) EVER Busch Service: Nursing Author Type: Registered Nurse Type: Patient Education Filed: 09/05/2017 6:22 AM Note Text: PRE OP LEARNING ASSESSMENT PROCEDURE/SURGERY: SURGERY: Right hand surgery READINESS TO LEARN COGNITIVE ABILITY: Alert and oriented MOTIVATION TO LEARN: Eager FAMILY SUPPORT: High - Very involved in pt care PATIENT LEARNS BEST BY: Written Instruction - Hand-outs Verbal Instruction FACTORS AFFECTING LEARNING: None PHYSICAL LIMITATIONS AFFECTING LEARNING: None Electronically Signed By: Kenneth Busch RN In Department: [facility] SURGERY PROGRESS Observed: 09/04/2017 Status: COMPLETED Source: [place] 12:19 PM [facility] [place] REPOSITORY HNO ID: [id number] Author: Mando (Pt) Adonay Service: (none) Author Type: Physical Therapist Type: Progress Notes Filed: 09/04/2017 12:39 PM Note Text: Episode Visit Count: 13 Therapist That Will Oversee The Plan Of Care: Kat Milton Start of Care Date: 07/14/17 Onset Date: 02/17/17 Patient Identified by Name and Date of : Yes REHABILITATION AND SPORTS THERAPY PHYSICAL THERAPY TREATMENT NOTE ASSESSMENT: Renae Elizondo demonstrated difficulty with gait and active movement since last seen. She reports falling since last visit and had boot on and has been more painful. Decreased intensity of exercise today. Swelling after retrograde massage decreased. Overall pain was slightly increased at end of treatment. The patient will continue to benefit from continued skilled physical therapy for progression of active exercise and progression of being out of the boot. Will try gait with st cane next visit. PLAN FOR NEXT VISIT: Possibly try gait with st cane with tennis shoes and with boot on. SUBJECTIVE: Patient reports she was walking down some stairs yesterday and tripped on bottm step and fell. She reports the boot was on and pain and swelling increased.. Patient reports increase burning after last therapy. She reports swelling was better after last therapy. Pain Score: 6/10 Pain Location: Foot - Left Description: Aching Frequency: Continuous Post Treatment Pain Score: 7/10 Pain Location: Ankle - Left Post Treatment Pain Description: Aching OBJECTIVE MEASURES WITH LEVEL OF FUNCTION: Increase swelling left lateral malleoli and top of foot today. TREATMENT: Therapeutic Exercise: 1: AROM ankle pumps x 10 reps 2: AROM ankle inv/ever x 10 reps 3: Forward step ups onto 4 step leading with left and right LE x 3 each with // bar assist. 4: ankle alphabet x1 Skilled Intervention: Patient was educated in proper exercise technique and purpose for exercises. Skilled judgment was provided in selection of appropriate interventions. Manual Therapy: 2: Retrograde massage left foot in elevation x 12 minutes. Skilled Intervention: Manual skills to improve joint mobility, ROM, and decrease pain. Utilized anatomy knowledge of the therapist, and assessment of patient's response to intervention. Gait Trainin: Gait in ll bars with instruction on heel strike, foot flat and push off over toes on left during swing through of gait with 2 UE assist from ll bars.. 2: Side stepping in // bars back and forth x 1 each direction. 3: Gait with walker with hesitant slow gait . Skilled Intervention: Facilitated proper gait cycle with the use of verbal cues for correction of gait deviations identified in the objective section above. Billing: [facility]: Therapeutic Exercise ([id number]): 1:1 time: 20 minutes (1 unit: 8-22 mins) Manual Therapy (00415): 1:1 time: 12 minutes (1 unit: 8-22 mins) Gait Training (23007): 1:1 time: 13 minutes (1 unit: 8-22 mins) Total time: 45 minutes HEATHER Jean PT CNTHERAPY Observed: 09/04/2017 Status: COMPLETED Source: [place] 10:00 AM [facility] REPOSITORY OT/PT/Speech Visit (PTWS) RENAE ELIZONDO ([id number]) 1955 F Date Time Provider Department 09/04/17 10:00 AM RITA SUN (SAMPLE SUPERVISOR) PTWS Date Time Provider Department Center 09/04/2017 10:00 AM [id number], NANCY (SAMPLE SUPERVISOR) PTWS [facility] Reason for Visit: Physical Therapy [503] Primary Visit Diagnosis:Arthritis, midfoot [M19.079] Allergies As of Date: 09/04/2017 Noted Allergy Reaction ADHESIVE TAPE (ROSINS) 02/13/2006 2 - Rash Comments: tore skin/blisters MORPHINE 02/05/2006 5 - Intolerance Comments: vomiting, shaking. NSAIDS (NON-STEROIDAL ANTI-INFLAM*10/05/2014 11 - Vomiting VASOTEC (ENALAPRIL MALEATE) 09/08/2008 Comments: nausea/doesn't work Date Reviewed: 08/29/2017 Reviewed by: Eryn Meek Ma - Fully Assessed Prescriptions as of 09/04/2017 Sig: HYDROXYCHLOROQUINE 200 MG TAB* TAKE ONE TABLET BY MOUTH TWIC* LEFLUNOMIDE 20 MG TABLET Take 1 tablet by mouth once d* DICLOFENAC 1 % TOPICAL GEL apply topically 4 grams to fo* CHOLECALCIFEROL (VITAMIN D3) * Take 2,000 Units by mouth onc* PROLIA SUBCUTANEOUS Inject subcutaneously once e* CELECOXIB 200 MG CAPSULE Take 200 mg by mouth as neede* MAGNESIUM OXIDE 500 MG TABLET Taking 250mg. Take two tablet* ACETAMINOPHEN 500 MG TABLET Take 500 mg by mouth every 8 * CPAP CHIN STRAP, USED WITH CPAP DE* FLUTICASONE 50 MCG/ACTUATION * Use 1 [place] in each nostril d* FERROUS SULFATE 325 MG (65 MG* Take 325 mg by mouth three ti* ASCORBIC ACID (VITAMIN C) 500* Take 500 mg by mouth three ti* CPAP AutoPAP 10-20 cmH2O, suitable* CYCLOBENZAPRINE 10 MG TABLET LEVOTHYROXINE 50 MCG TABLET Take 50 mcg by mouth daily be* CLOBETASOL 0.05 % TOPICAL CRE* as directed * GABAPENTIN 300 MG CAPSULE Take 300 mg by mouth three ti* * PROMETHAZINE 25 MG TABLET Take one(1) tablet every four* * ATIVAN 1 MG TABLET takes 1/2 tab as needed * FENTANYL 50 MCG/HR TRANSDERMA* Apply as directed. Change pat* * B COMPLEX 1 TABLET Take one(1) tablet daily. * MULTIVITAMIN,TX-MINERALS TABL* 1 tab daily Progress Notes: Mando Urias, PT 09/04/2017 12:39 PM Signed Episode Visit Count: 13 Therapist That Will Oversee The Plan Of Care: Kat Milton Start of Care Date: 07/14/17 Onset Date: 02/17/17 Patient Identified by Name and Date of : Yes REHABILITATION AND SPORTS THERAPY PHYSICAL THERAPY TREATMENT NOTE ASSESSMENT: Renae Elizondo demonstrated difficulty with gait and active movement since last seen. She reports falling since last visit and had boot on and has been more painful. Decreased intensity of exercise today. Swelling after retrograde massage decreased. Overall pain was slightly increased at end of treatment. The patient will continue to benefit from continued skilled physical therapy for progression of active exercise and progression of being out of the boot. Will try gait with st cane next visit. PLAN FOR NEXT VISIT: Possibly try gait with st cane with tennis shoes and with boot on. SUBJECTIVE: Patient reports she was walking down some stairs yesterday and tripped on bottm step and fell. She reports the boot was on and pain and swelling increased.. Patient reports increase burning after last therapy. She reports swelling was better after last therapy. Pain Score: 6/10 Pain Location: Foot - Left Description: Aching Frequency: Continuous Post Treatment Pain Score: 7/10 Pain Location: Ankle - Left Post Treatment Pain Description: Aching OBJECTIVE MEASURES WITH LEVEL OF FUNCTION: Increase swelling left lateral malleoli and top of foot today. TREATMENT: Therapeutic Exercise: 1: AROM ankle pumps x 10 reps 2: AROM ankle inv/ever x 10 reps 3: Forward step ups onto 4 step leading with left and right LE x 3 each with // bar assist. 4: ankle alphabet x1 Skilled Intervention: Patient was educated in proper exercise technique and purpose for exercises. Skilled judgment was provided in selection of appropriate interventions. Manual Therapy: 2: Retrograde massage left foot in elevation x 12 minutes. Skilled Intervention: Manual skills to improve joint mobility, ROM, and decrease pain. Utilized anatomy knowledge of the therapist, and assessment of patient's response to intervention. Gait Trainin: Gait in ll bars with instruction on heel strike, foot flat and push off over toes on left during swing through of gait with 2 UE assist from ll bars.. 2: Side stepping in // bars back and forth x 1 each direction. 3: Gait with walker with hesitant slow gait . Skilled Intervention: Facilitated proper gait cycle with the use of verbal cues for correction of gait deviations identified in the objective section above. Billing: [facility]: Therapeutic Exercise (46470): 1:1 time: 20 minutes (1 unit: 8-22 mins) Manual Therapy (00295): 1:1 time: 12 minutes (1 unit: 8-22 mins) Gait Training (00673): 1:1 time: 13 minutes (1 unit: 8-22 mins) Total time: 45 minutes Rita Sun PTRanjit Urias PT Previous Version Follow-up and Disposition History Recorded NURSING PROG Observed: 09/01/2017 Status: COMPLETED Source: [place] 3:37 PM [facility] OTHER CAMPUS REPOSITORY HNO ID: [id number] Author: Neema NolascoRn) EVER Tyler Service: (none) Author Type: Registered Nurse Type: Nursing Progress Note Filed: 09/01/2017 3:40 PM Note Text: PACC Nurse Progress Note History AND Physical: PACC Visit Date: 08/29/17 Original HANDP Date: 08/29/17 ED visit Date: N/A Outside HANDP Scanned Date: N/A Labs Within Last 6 Months: CBC: Date 08/25/17 within acceptable limits for planned procedure BMP/CMP: Date 08/25/17 WNL Imaging Within Last 12 Months: Bilateral hand XR 08/25/17 Cardiac Testing: ECHO Date: 12/23/14, Comment: NA Last Menstrual Period: LMP Date: N/A Postmenopausal >1yr: Yes, S/P Hysterectomy: Yes BMI Percentile (PEDS): N/A Risk Assessment: N/A Anesthesia Review: N/A Narrative: N/A Pre-op Considerations: HARRISON on CPAP Chart Check: COMPLETED Neema Tyler RN September 01, 2017 3:37 PM PROGRESS Observed: 09/01/2017 Status: COMPLETED Source: [place] 12:05 PM [facility] REPOSITORY HNO ID: [id number] Author: Kat (Pt) Yoan Service: (none) Author Type: Physical Therapist Type: Progress Notes Filed: 09/01/2017 1:33 PM Note Text: Episode Visit Count: 12 Therapist That Will Oversee The Plan Of Care: Kat Milton Start of Care Date: 07/14/17 Onset Date: 02/17/17 Patient Identified by Name and Date of : Yes REHABILITATION AND SPORTS THERAPY PHYSICAL THERAPY TREATMENT NOTE ASSESSMENT: Renae Elizondo demonstrated difficulty with step length with walking into therapy with boot on and no assistive device. Patient able to improve step length in // bars and with use of walker with tennis shoes on. Patient is having pain anterior foot with push off with tennis shoe on. Gait with shoe on is improving with use of walker but pain persists. The patient will continue to benefit from continued skilled physical therapy for gait with tennis shoes on, ROM and strengthening of left foot and ankle. PLAN FOR NEXT VISIT: Continue with gait , manual therapy and strengthening exercises. SUBJECTIVE: Patient reports increase soreness with trying to walk more normal with shoes on. Patient with soreness top of foot. Patient reports decrease swelling today. Pain Score: 5/10 Pain Location: Foot - Left Description: Aching;Throbbing Frequency: Continuous Post Treatment Pain Score: 6/10 Pain Location: Foot - Left Post Treatment Pain Description: Aching;Throbbing OBJECTIVE MEASURES WITH LEVEL OF FUNCTION: Posture / Alignment LE Observations: decrease visible edema left foot and ankle thorughout treatment. TREATMENT: Therapeutic Exercise: 4: ankle alphabet x1 5: Seated BAPS PWB left ball 2 A/P, lateral and cw and ccw x10 each. 6: Yellow band left resistive df,pf,inv and evr 1x10. Skilled Intervention: Patient was educated in proper exercise technique and purpose for exercises. Reviewed and educated patient on additions/changes for home exercise program continue with exercise on a regular basis possibly with foot in elevated position. Correct performance of therapeutic exercises was facilitated with verbal cuing. Manual Therapy: 2: Retrograde massage left foot in elevation x 12 minutes. Skilled Intervention: Manual skills to improve joint mobility, ROM, and decrease pain. Utilized anatomy knowledge of the therapist, and assessment of patient's response to intervention. Gait Trainin: Gait in ll bars with instruction on heel strike, foot flat and push off over toes on left during swing through of gait with 2 UE assist from ll bars.. 2: Gait on level with FFW 30 feet x 2 with improved push off during swing through of gait. Skilled Intervention: Facilitated proper gait cycle with the use of verbal and visual cues for correction of gait deviations identified in the objective section above. Skilled judgment used to assess proper use of assistive device. Billing: [facility]: Therapeutic Exercise (49600): 1:1 time: 17 minutes (1 unit: 8-22 mins) Manual Therapy (20552): 1:1 time: 12 minutes (1 unit: 8-22 mins) Gait Training (51401): 1:1 time: 12 minutes (1 unit: 8-22 mins) Total time: 41 minutes HEATHER Jean PT CNTHERAPY Observed: 09/01/2017 Status: COMPLETED Source: [place] 10:00 AM [facility] [place] REPOSITORY OT/PT/Speech Visit (PTWS) RENAE ELIZONDO ([id number]) 1955 F Date Time Provider Department 09/01/17 10:00 AM RITA SUN (SAMPLE SUPERVISOR) PTWS Date Time Provider Department Center 09/01/2017 10:00 AM [id number], NANCY (SAMPLE SUPERVISOR) PTWS [facility] Reason for Visit: Physical Therapy [503] Primary Visit Diagnosis:Arthritis, midfoot [M19.079] Allergies As of Date: 09/01/2017 Noted Allergy Reaction ADHESIVE TAPE (ROSINS) 02/13/2006 2 - Rash Comments: tore skin/blisters MORPHINE 02/05/2006 5 - Intolerance Comments: vomiting, shaking. NSAIDS (NON-STEROIDAL ANTI-INFLAM*10/05/2014 11 - Vomiting VASOTEC (ENALAPRIL MALEATE) 09/08/2008 Comments: nausea/doesn't work Date Reviewed: 08/29/2017 Reviewed by: Eryn Meek Ma - Fully Assessed Prescriptions as of 09/01/2017 Sig: HYDROXYCHLOROQUINE 200 MG TAB* TAKE ONE TABLET BY MOUTH TWIC* LEFLUNOMIDE 20 MG TABLET Take 1 tablet by mouth once d* DICLOFENAC 1 % TOPICAL GEL apply topically 4 grams to fo* CHOLECALCIFEROL (VITAMIN D3) * Take 2,000 Units by mouth onc* PROLIA SUBCUTANEOUS Inject subcutaneously once e* CELECOXIB 200 MG CAPSULE Take 200 mg by mouth as neede* MAGNESIUM OXIDE 500 MG TABLET Taking 250mg. Take two tablet* ACETAMINOPHEN 500 MG TABLET Take 500 mg by mouth every 8 * CPAP CHIN STRAP, USED WITH CPAP DE* FLUTICASONE 50 MCG/ACTUATION * Use 1 [place] in each nostril d* FERROUS SULFATE 325 MG (65 MG* Take 325 mg by mouth three ti* ASCORBIC ACID (VITAMIN C) 500* Take 500 mg by mouth three ti* CPAP AutoPAP 10-20 cmH2O, suitable* CYCLOBENZAPRINE 10 MG TABLET LEVOTHYROXINE 50 MCG TABLET Take 50 mcg by mouth daily be* CLOBETASOL 0.05 % TOPICAL CRE* as directed * GABAPENTIN 300 MG CAPSULE Take 300 mg by mouth three ti* * PROMETHAZINE 25 MG TABLET Take one(1) tablet every four* * ATIVAN 1 MG TABLET takes 1/2 tab as needed * FENTANYL 50 MCG/HR TRANSDERMA* Apply as directed. Change pat* * B COMPLEX 1 TABLET Take one(1) tablet daily. * MULTIVITAMIN,TX-MINERALS TABL* 1 tab daily Progress Notes: Kat Milton PT 09/01/2017 1:33 PM Signed Episode Visit Count: 12 Therapist That Will Oversee The Plan Of Care: Kat Milton Start of Care Date: 07/14/17 Onset Date: 02/17/17 Patient Identified by Name and Date of : Yes REHABILITATION AND SPORTS THERAPY PHYSICAL THERAPY TREATMENT NOTE ASSESSMENT: Renae lEizondo demonstrated difficulty with step length with walking into therapy with boot on and no assistive device. Patient able to improve step length in // bars and with use of walker with tennis shoes on. Patient is having pain anterior foot with push off with tennis shoe on. Gait with shoe on is improving with use of walker but pain persists. The patient will continue to benefit from continued skilled physical therapy for gait with tennis shoes on, ROM and strengthening of left foot and ankle. PLAN FOR NEXT VISIT: Continue with gait , manual therapy and strengthening exercises. SUBJECTIVE: Patient reports increase soreness with trying to walk more normal with shoes on. Patient with soreness top of foot. Patient reports decrease swelling today. Pain Score: 5/10 Pain Location: Foot - Left Description: Aching;Throbbing Frequency: Continuous Post Treatment Pain Score: 6/10 Pain Location: Foot - Left Post Treatment Pain Description: Aching;Throbbing OBJECTIVE MEASURES WITH LEVEL OF FUNCTION: Posture / Alignment LE Observations: decrease visible edema left foot and ankle thorughout treatment. TREATMENT: Therapeutic Exercise: 4: ankle alphabet x1 5: Seated BAPS PWB left ball 2 A/P, lateral and cw and ccw x10 each. 6: Yellow band left resistive df,pf,inv and evr 1x10. Skilled Intervention: Patient was educated in proper exercise technique and purpose for exercises. Reviewed and educated patient on additions/changes for home exercise program continue with exercise on a regular basis possibly with foot in elevated position. Correct performance of therapeutic exercises was facilitated with verbal cuing. Manual Therapy: 2: Retrograde massage left foot in elevation x 12 minutes. Skilled Intervention: Manual skills to improve joint mobility, ROM, and decrease pain. Utilized anatomy knowledge of the therapist, and assessment of patient's response to intervention. Gait Trainin: Gait in ll bars with instruction on heel strike, foot flat and push off over toes on left during swing through of gait with 2 UE assist from ll bars.. 2: Gait on level with FFW 30 feet x 2 with improved push off during swing through of gait. Skilled Intervention: Facilitated proper gait cycle with the use of verbal and visual cues for correction of gait deviations identified in the objective section above. Skilled judgment used to assess proper use of assistive device. Billing: [facility]: Therapeutic Exercise ([id number]): 1:1 time: 17 minutes (1 unit: 8-22 mins) Manual Therapy ([id number]): 1:1 time: 12 minutes (1 unit: 8-22 mins) Gait Training (53527): 1:1 time: 12 minutes (1 unit: 8-22 mins) Total time: 41 minutes Rita Sun PT-[place] Milton PT Previous Version Follow-up and Disposition History Recorded HISTORY PHYSICAL Observed: 08/29/2017 Status: COMPLETED Source: [place] 3:56 PM [facility] MA[facility] [place] REPOSITORY HNO ID: [id number] Author: Terri Ruiz (Pa) Service: (none) Author Type: Physician Cable Layer Type: HANDP Filed: 08/29/2017 4:30 PM Note Text: HISTORY AND PHYSICAL EXAMINATION SERVICE DATE: 08/29/2017 SERVICE TIME: 3:56 PM PRIMARY CARE PHYSICIAN: Elisa Baxter MD REASON FOR VISIT: Renae Elizondo is a 62 year old female who is scheduled for Arthrodesis right index, middle and small finger at the request of Dr. Jorge Martinez for consultation. My final recommendation will be communicated back to the requesting physician by way of shared medical record or letter. 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) Arthritis of Left Foot Osteoarthritis of Foot, Left Arthritis, Midfoot Pain in Finger of Right Hand Primary Osteoarthritis of Right Hand Subjective CHIEF COMPLAINT: finger pain HPI: 62 yo female with pain in the right finger joints, index, middle and 5th digit. She has pain with movement of the fingers and is the get bumped or pressure on the joint. There is pain with flexion of the fingers. Prior treatment has been surgery on the left hand index and middle finger. No prior treatment on the right hand other than voltaren gel. PAST MEDICAL HISTORY Diagnosis Date - Anemia - Hypothyroidism - Malignant neoplasm of breast (female), unspecified site - Obstructive sleep apnea - Other and unspecified diseases of upper respiratory tract - RA (rheumatoid arthritis) (HCC) - S/P gastric bypass - Sarcoidosis (HCC) PAST SURGICAL HISTORY Procedure Laterality Date - APPENDECTOMY 2000 Done with gastric bypass - COLONOSCOP W/ OR W/O BRSH SPEC 12/05/2008, Colonoscopy - GASTRIC BYPASS-MORBID OBESITY 2000 - MASTECTOMY, MODIFIED RADICAL 08/27/2006 Right MRM - PAST SURGICAL HISTORY OF 2000 venous ligation leg - PAST SURGICAL HISTORY OF Carpal Tunnel - PAST SURGICAL HISTORY OF Left thumb repair - PAST SURGICAL HISTORY OF port acath LEFT - PAST SURGICAL HISTORY OF removal of port - PAST SURGICAL HISTORY OF Left 01/2017 lt 2nd AND 3rd digit repair - OR ANESTH,REPAIR LO ABD HERNIA NOS - OR ANESTH,VAGINAL HYSTERECTOMY 2003 BSO - REMOVAL GALLBLADDER 1992 Cholecystectomy FAMILY HISTORY Problem Relation Age of Onset - Diabetes Mother - Colon Cancer Mother pancreatic cancer - Cancer Mother pancreatic - Colon Cancer Father at age 75 or 76 - Cancer Father - Parkinson's disease [OTHER] Father - Diabetes Brother - Diabetes Paternal Grandmother - Diabetes Maternal Grandmother - Ischemic Heart Disease Maternal Grandfather - Hypertension Sister - Hypertension Brother - Stroke Paternal Grandfather - Allergies Sister - Allergies Brother - Cancer Sister uterine/ lung/ liver - Cancer Brother melanoma/ brain/ tongue SOCIAL HISTORY: Social History Marital status: Spouse name: Years of education: Number of children: Social History Main Topics Smoking status: Never Smoker Smokeless tobacco: Never Used Alcohol use: Yes Comment: occasionally glass wine or mixed drink Drug use: No Sexual activity: Yes Partners with: Male Prior to Admission medications as of 08/29/17 1605 Medication Sig Last Dose Taking hydroxychloroquine (PLAQUENIL) 200 mg tablet TAKE ONE TABLET BY MOUTH TWICE DAILY Yes leflunomide (ARAVA) 20 mg tablet Take 1 tablet by mouth once daily. Yes diclofenac sodium (VOLTAREN) 1 % topical gel apply topically 4 grams to foot four times a day Yes cholecalciferol (VITAMIN D-3) 2,000 unit tablet Take 2,000 Units by mouth once daily. Yes DENOSUMAB (PROLIA SUBCUTANEOUS) Inject subcutaneously once every 6 months. Yes celecoxib (CELEBREX) 200 mg capsule Take 200 mg by mouth as needed. Yes Magnesium Oxide 500 mg tab Taking 250mg. Take two tablets by mouth once daily. Yes acetaminophen (TYLENOL EXTRA STRENGTH) 500 mg tablet Take 500 mg by mouth every 8 hours as needed. Yes CPAP CHIN STRAP, USED WITH CPAP DEVICE Yes fluticasone (FLONASE) 50 mcg/actuation nasal spray Use 1 [place] in each nostril daily at bedtime. Yes ferrous sulfate 325 mg (65 mg iron) tablet Take 325 mg by mouth three times daily with meals. Yes ascorbic acid (VITAMIN C) 500 mg tablet Take 500 mg by mouth three times daily. Yes CPAP AutoPAP 10-20 cmH2O, suitable mask, humidity, filters. Lifetime supplies. Dx: [phone]. Fax compliance rpt to [phone] in 4-6 weeks. Yes cyclobenzaprine (FLEXERIL) 10 mg tablet Yes levothyroxine (LEVOTHROID) 50 mcg tablet Take 50 mcg by mouth daily before breakfast. Yes CLOBETASOL 0.05 % cream as directed Yes gabapentin 300 mg capsule Take 300 mg by mouth three times daily. Yes PROMETHAZINE 25 MG TAB Take one(1) tablet every four(4) to six(6) hours as needed for nausea. Yes lorazepam(ATIVAN 1 MG TAB) takes 1/2 tab as needed Yes fentanyl 50 mcg/hr TRANSDERM. PT72 Apply as directed. Change patch every 3 days. Yes B COMPLEX 1 TAB Take one(1) tablet daily. Yes MULTIVITAMIN,TX-MINERALS TAB 1 tab daily Yes No medication comments found. ALLERGIES Allergen Reactions - Adhesive Tape (Love* Rash tore skin/blisters - Morphine Intolerance vomiting, shaking. - Nsaids (Non-Steroid* Vomiting - Vasotec [Enalapril * nausea/doesn't work REVIEW OF SYSTEMS: PAIN ASSESSMENT: General: No weight loss, malaise or fevers. Neuro: Postive for RLS and chronic pain with Fentanyl patch, Negative for TIA's Headaches Seizures Stroke-residual deficit Respiratory: Positive for sarcoid of the lung- no inhalers or O2, + HARRISON- on CPAP, Negative for Asthma, COPD, Home O2, Tobacco Use, URI < 2 weeks Cardiovascular: No history of HTN requiring medication, no history of angina, CHF, WI, cardiac surgery or stents. Denies rest pain, gangrene or revascularization/amputation for PVD. No history of cardiovascular symptoms or problems. 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 : N/A, No LMP recorded. Patient has had a hysterectomy. Endocrine: Hypothyroidism, No DM Hematology: Anemia in past recently stable Oncology: right breast cancer Psych: No history of psychiatric symptoms or problems. Musculoskeletal: See HPI left foot boot since surgery 01/2017 Skin: Negative for lesions, rash and itching. Objective PHYSICAL EXAM: VITALS: BP 118/76 Pulse 84 Temp (Src) 97.3 (Temporal Artery) Ht 5' 0 (1.52m) Wt 209 lb (94.8kg) SpO2 98% BMI 40.82 kg/(m2). General: Alert and oriented, No acute distress, Morbidly obese Skin: Normal color, no rash, no lesions. HEENT: EOM, pupils equal, round and reactive. Cardiovascular: Normal S1 AND S2, no rubs, murmurs or gallops. No JVD. Pulse regular. Lungs: Normal breath sounds, no wheezes or crackles. Abdomen: Soft, non-tender, no rigidity. Extremities: No deformity, no edema or tenderness, no joint swelling or clubbing. Neurological: Normal cognition and motor skills. Pulses: Carotid and radial pulses normal +2. Diagnostic tests reviewed for today's visit: Lab Value Units Date High Low HB 12.1 g/dL 08/25/2017 15.5 11.5 HCT 38.1 % 08/25/2017 46.0 36.0 WBC 4.84 k/uL 08/25/2017 11.00 3.70 PLT 279 k/uL 08/25/2017 400 150 NA 140 mmol/L 08/25/2017 144 136 K 4.2 mmol/L 08/25/2017 5.1 3.7 GLUC 87 mg/dL 08/25/2017 99 74 BUN 13 mg/dL 08/25/2017 21 7 CREAT 0.75 mg/dL 08/25/2017 0.96 0.58 PTSEC No results within date range. INR No results within date range. APTT No results within date range. ALT 19 U/L 08/25/2017 38 7 AST 31 U/L 08/25/2017 35 13 TBILI 0.5 mg/dL 08/25/2017 1.3 0.2 TSH No results within date range. Lab Value Units Date High Low HCGQT No results within date range. UHCG No results within date range. HCG, BODY* No results within date range. Lab Value Units Date High Low ABORHD No results within date range. ABSCREEN No results within date range. No results found for: HBA1C Most recent labs Assessment ASSESSMENT Morbid Obesity-BMI 40.8 RA - on Plaquenil Sarcoidosis - stable h/o right Breast cancer Chronic pain Fentanyl patch HARRISON- on CPAP H/o gastric bypass METS: Climb a flight of stairs or walk up a hill (5.50 METs) ASA Class: 4 ANESTHESIA FINDINGS: Intubation History: No history of difficult intubation Significant Anesthesia Considerations: with bronchoscopy in the past and went into anaphylactic shock and thought related to versed and since then has had versed and no issues. Airway Exam: General: Morbid obesity Mallampati Score is CLASS I ULBT: Class I - Lower incisors can bite the upper lip above the james line Neck: Normal appearance and function, Distance from hyoid to mentum during neck extension is at least 3 finger breaths Mouth: Normal tongue size Dentition: Intact Airway History: No abnormal airway history STOP BANG Score: HARRISON uses CPAP/BiPAP PLAN This patient is optimally prepared for surgery. CONSULTS: Patient does not require consults for optimization at this time. The Following Tests/Procedures Have Been Initiated: Labs not indicated per [facility] protocol, EKG not indicated per [facility] protocol Planned Anesthetic: Per anesthesia choice Instructions Given to Patient: Patient given verbal and written preop instructions and voices comprehension and compliance. SIGNATURE: Terri Ruiz PA-C PATIENT NAME: Renae Elizondo DATE: August 29, 2017 TIME: 3:56 PM PAGER/CONTACT #: PROGRESS Observed: 08/28/2017 Status: COMPLETED Source: [place] 11:46 AM [facility] [place] REPOSITORY O ID: [id number] Author: Orlin (Terri Welsh Service: (none) Author Type: Physical Therapist Type: Progress Notes Filed: 08/28/2017 2:11 PM Note Text: Episode Visit Count: 11 Therapist That Will Oversee The Plan Of Care: Kat Milton Start of Care Date: 07/14/17 Onset Date: 02/17/17 Patient Identified by Name and Date of : Yes REHABILITATION AND SPORTS THERAPY PHYSICAL THERAPY TREATMENT NOTE ASSESSMENT: Renae Elizondo demonstrated difficulty with proper gait with shoes on initially in // bars with hand hold assist. Progressed to walker with cues for proper form with walking and patient was able to improve heel strike and toe off with cues. Patient continues to have edema in left foot and pain. The patient will continue to benefit from continued skilled physical therapy for progression of gait out of boot , strengthening and manual therapy for pain control. PLAN FOR NEXT VISIT: continue with gait with shoes on ,exercise and manual therapy for pain and edema control. SUBJECTIVE: Patient reports she has had aching in left ankle since last seen. She reports walking in yard with boot and the uneven surfaces were hard for her.. Pain Score: 7/10 Pain Location: Foot - Left (all over the foot) Description: Throbbing Frequency: Continuous Post Treatment Pain Score: 6/10 Pain Location: Foot - Left Post Treatment Pain Description: Aching OBJECTIVE MEASURES WITH LEVEL OF FUNCTION: Gait Gait Observation: Gait on level with B tennis shoes with walker with verbal cues needed for proper heel strike and push off on left during swing through of gait. TREATMENT: Therapeutic Exercise: 1: AROM ankle pumps x 10 reps 2: AROM ankle inv/ever x 10 reps 3: AROM ankle circles x10 CW and CCW 4: ankle alphabet x1 5: Seated BAPS PWB left ball 2 A/P, lateral x 10 and cw and ccw x5 6: Yellow band left resistive df,pf,inv and evr 1x10. Skilled Intervention: Patient was educated in proper exercise technique and purpose for exercises. Skilled judgment was provided in selection of appropriate interventions. Correct performance of therapeutic exercises was facilitated with verbal cuing. Manual Therapy: 2: Retrograde massage left foot in elevation x 10 minutes. Skilled Intervention: Manual skills to improve joint mobility, ROM, and decrease pain. Utilized anatomy knowledge of the therapist, and assessment of patient's response to intervention. Gait Trainin: Gait in ll bars with instruction on heel strike, foot flat and push off over toes on left during swing through of gait with 2 UE assist and 1 UE assist from ll bars.. 2: Gait on level with FFW 30 feet x 1 with improved push off during swing through of gait. 3: Instruction to continue with gait with walker at home per her tolerance working on proper sequence. Patient reports she has been wearing shoes at times in her house with walker for about 1 month. Skilled Intervention: Facilitated proper gait cycle with the use of verbal and visual cues for correction of gait deviations identified in the objective section above. Skilled judgment used to assess selection of assistive device. Billing: [facility]: Therapeutic Exercise ([id number]): 1:1 time: 20 minutes (1 unit: 8-22 mins) Manual Therapy (57020): 1:1 time: 10 minutes (1 unit: 8-22 mins) Gait Training (24507): 1:1 time: 10 minutes (1 unit: 8-22 mins) Total time: 40 minutes HEATHER Jean PT CNTHERAPY Observed: 08/28/2017 Status: COMPLETED Source: [place] 8:30 AM [facility] [place] REPOSITORY OT/PT/Speech Visit (PTWS) RENAE ELIZONDO ([id number]) 1955 F Date Time Provider Department 08/28/17 8:30 AM RITA SUN (SAMPLE SUPERVISOR) PTWS Date Time Provider Department Center 08/28/2017 8:30 AM [id number], NANCY (SAMPLE SUPERVISOR) PTWS [facility] Reason for Visit: Physical Therapy [503] Primary Visit Diagnosis:Arthritis, midfoot [M19.079] Allergies As of Date: 08/28/2017 Noted Allergy Reaction ADHESIVE TAPE (ROSINS) 02/13/2006 2 - Rash Comments: tore skin/blisters MORPHINE 02/05/2006 5 - Intolerance Comments: vomiting, shaking. NSAIDS (NON-STEROIDAL ANTI-INFLAM*10/05/2014 11 - Vomiting VASOTEC (ENALAPRIL MALEATE) 09/08/2008 Comments: nausea/doesn't work Date Reviewed: 08/25/2017 Reviewed by: Jorge Martinez - Fully Assessed Prescriptions as of 08/28/2017 Sig: HYDROXYCHLOROQUINE 200 MG TAB* TAKE ONE TABLET BY MOUTH TWIC* LEFLUNOMIDE 20 MG TABLET Take 1 tablet by mouth once d* DICLOFENAC 1 % TOPICAL GEL apply topically 4 grams to fo* CHOLECALCIFEROL (VITAMIN D3) * Take 2,000 Units by mouth onc* PROLIA SUBCUTANEOUS Inject subcutaneously once e* CELECOXIB 200 MG CAPSULE Take 200 mg by mouth as neede* MAGNESIUM OXIDE 500 MG TABLET Taking 250mg. Take two tablet* ACETAMINOPHEN 500 MG TABLET Take 500 mg by mouth every 8 * CPAP CHIN STRAP, USED WITH CPAP DE* FLUTICASONE 50 MCG/ACTUATION * Use 1 [place] in each nostril d* FERROUS SULFATE 325 MG (65 MG* Take 325 mg by mouth three ti* ASCORBIC ACID (VITAMIN C) 500* Take 500 mg by mouth three ti* CPAP AutoPAP 10-20 cmH2O, suitable* CYCLOBENZAPRINE 10 MG TABLET LEVOTHYROXINE 50 MCG TABLET Take 50 mcg by mouth daily be* CLOBETASOL 0.05 % TOPICAL CRE* as directed * GABAPENTIN 300 MG CAPSULE Take 300 mg by mouth three ti* * PROMETHAZINE 25 MG TABLET Take one(1) tablet every four* * ATIVAN 1 MG TABLET takes 1/2 tab as needed * FENTANYL 50 MCG/HR TRANSDERMA* Apply as directed. Change pat* * B COMPLEX 1 TABLET Take one(1) tablet daily. * MULTIVITAMIN,TX-MINERALS TABL* 1 tab daily Progress Notes: Orlin Welsh PT 08/28/2017 2:11 PM Signed Episode Visit Count: 11 Therapist That Will Oversee The Plan Of Care: Kat Milton Start of Care Date: 07/14/17 Onset Date: 02/17/17 Patient Identified by Name and Date of : Yes REHABILITATION AND SPORTS THERAPY PHYSICAL THERAPY TREATMENT NOTE ASSESSMENT: Renae Elizondo demonstrated difficulty with proper gait with shoes on initially in // bars with hand hold assist. Progressed to walker with cues for proper form with walking and patient was able to improve heel strike and toe off with cues. Patient continues to have edema in left foot and pain. The patient will continue to benefit from continued skilled physical therapy for progression of gait out of boot , strengthening and manual therapy for pain control. PLAN FOR NEXT VISIT: continue with gait with shoes on ,exercise and manual therapy for pain and edema control. SUBJECTIVE: Patient reports she has had aching in left ankle since last seen. She reports walking in yard with boot and the uneven surfaces were hard for her.. Pain Score: 7/10 Pain Location: Foot - Left (all over the foot) Description: Throbbing Frequency: Continuous Post Treatment Pain Score: 6/10 Pain Location: Foot - Left Post Treatment Pain Description: Aching OBJECTIVE MEASURES WITH LEVEL OF FUNCTION: Gait Gait Observation: Gait on level with B tennis shoes with walker with verbal cues needed for proper heel strike and push off on left during swing through of gait. TREATMENT: Therapeutic Exercise: 1: AROM ankle pumps x 10 reps 2: AROM ankle inv/ever x 10 reps 3: AROM ankle circles x10 CW and CCW 4: ankle alphabet x1 5: Seated BAPS PWB left ball 2 A/P, lateral x 10 and cw and ccw x5 6: Yellow band left resistive df,pf,inv and evr 1x10. Skilled Intervention: Patient was educated in proper exercise technique and purpose for exercises. Skilled judgment was provided in selection of appropriate interventions. Correct performance of therapeutic exercises was facilitated with verbal cuing. Manual Therapy: 2: Retrograde massage left foot in elevation x 10 minutes. Skilled Intervention: Manual skills to improve joint mobility, ROM, and decrease pain. Utilized anatomy knowledge of the therapist, and assessment of patient's response to intervention. Gait Trainin: Gait in ll bars with instruction on heel strike, foot flat and push off over toes on left during swing through of gait with 2 UE assist and 1 UE assist from ll bars.. 2: Gait on level with FFW 30 feet x 1 with improved push off during swing through of gait. 3: Instruction to continue with gait with walker at home per her tolerance working on proper sequence. Patient reports she has been wearing shoes at times in her house with walker for about 1 month. Skilled Intervention: Facilitated proper gait cycle with the use of verbal and visual cues for correction of gait deviations identified in the objective section above. Skilled judgment used to assess selection of assistive device. Billing: [facility]: Therapeutic Exercise ([id number]): 1:1 time: 20 minutes (1 unit: 8-22 mins) Manual Therapy (95511): 1:1 time: 10 minutes (1 unit: 8-22 mins) Gait Training (21140): 1:1 time: 10 minutes (1 unit: 8-22 mins) Total time: 40 minutes HEATHER Jean, PT Previous Version Follow-up and Disposition History Recorded PROGRESS Observed: 08/25/2017 Status: COMPLETED Source: [place] 3:06 PM [facility] [place] REPOSITORY HNO ID: [id number] Author: Orlin Welsh Service: (none) Author Type: Physical Therapist Type: Progress Notes Filed: 08/25/2017 5:44 PM Note Text: Episode Visit Count: 10 Therapist That Will Oversee The Plan Of Care: Kat Milton Start of Care Date: 07/14/17 Onset Date: 02/17/17 Patient Identified by Name and Date of : Yes Precaution/Activity Restriction Comments: WBAT L LE Surgical Procedure: L LE Talonavicular fusion (with hardware) Surgical Procedure Date: 02/17/17 REHABILITATION AND SPORTS THERAPY PHYSICAL THERAPY TREATMENT NOTE ASSESSMENT: Renae Elizondo demonstrated increase edema left top of foot and around B malleolus. Added retrograde massage in elevation today with reduction in visible edema in foot. The patient will continue to benefit from continued skilled physical therapy for progression of exercise, pain control with manual techniques and gait with shoes on. PLAN FOR NEXT VISIT: Patient to bring tennis shoes and will work on gait on level with boot off. SUBJECTIVE: Patient reports she had an accident on the way to therapy last visit. She reports soreness in shoulder and arms after that incident. Pain Score: 6/10 Pain Location: Foot - Left (arch and base of toes top of foot.) Description: Aching;Sharp (sharp at times) Frequency: Continuous Post Treatment Pain Score: 6/10 Pain Location: Foot - Left Post Treatment Pain Description: (arch) OBJECTIVE MEASURES WITH LEVEL OF FUNCTION: Decrease edema base of toes and B malleoli region after retrograde massage. TREATMENT: Therapeutic Exercise: 1: AROM ankle pumps x 20 reps 2: AROM ankle inv/ever x 20 reps 3: AROM ankle circles x 20 CW and CCW 4: ankle alphabet x1 5: Seated BAPS PWB left ball 2 A/P, lateral, cw and ccw 1x10. 6: Yellow band left resistive df,pf,inv and evr 2x10. Skilled Intervention: Patient was educated in proper exercise technique and purpose for exercises. Skilled judgment was provided in selection of appropriate interventions. Manual Therapy: 2: Retrograde massage left foot in elevation x 12 minutes. Skilled Intervention: Manual skills to improve joint mobility, ROM, and decrease pain. Utilized anatomy knowledge of the therapist, and assessment of patient's response to intervention. Billing: [facility]: Therapeutic Exercise ([id number]): 1:1 time: 33 minutes (2 units: 23-37 mins) Manual Therapy ([id number]): 1:1 time: 12 minutes (1 unit: 8-22 mins) Total time: 45 minutes Rita Sun, PT-[place] Welsh, [place] CBC Collected: 08/25/2017 Status: F Source: [place] 3:00 PM [facility] REPOSITORY TYPE CODE TESTS RESULT OUT OF REFERENCE UNITS RANGE LAB WBC 3.70-11.00 k/uL WBC 4.84 LAB RBC 3.90-5.20 m/uL Low RBC 3.82 LAB HGB 11.5-15.5 g/dL Hemoglobin 12.1 LAB HCT 36.0-46.0 % Hematocrit 38.1 LAB MCV 80.0-100.0 fL MCV 99.7 LAB MCH 26.0-34.0 pG MCH 31.7 LAB MCHC 30.5-36.0 g/dL MCHC 31.8 LAB RDWCV 11.5-15.0 % RDW-CV 12.6 LAB PLTCT 150-400 k/uL Platelet Count 279 LAB MPV 9.0-12.7 fL MPV 9.9 LAB ABSNUC <0.01 k/uL Absolute nRBC <0.01 Performed By: #### CBC, CMP #### [facility] [address] [address] COMP METABOLIC PANEL Collected: 08/25/2017 Status: F Source: [place] 3:00 PM [facility] REPOSITORY TYPE CODE TESTS RESULT OUT OF REFERENCE UNITS RANGE LAB TP 6.3-8.0 g/dL Protein, Total 7.1 LAB ALB 3.9-4.9 g/dL Albumin 4.1 LAB CA 8.5-10.2 mg/dL Calcium, Total 9.2 LAB TBIL 0.2-1.3 mg/dL Bilirubin, Total 0.5 LAB ALKP 32-117 U/L Alkaline Phosphatase 80 LAB AST 13-35 U/L AST 31 LAB GLU 74-99 mg/dL Glucose 87 Result Comment: The [place] [employer] (ADA) provides guidance for cutoff values for fasting glucose and random glucose. The ADA defines fasting as no caloric intake for at least 8 hours. Fas ting plasma glucose results between 100 to 125 mg/dL indicate increased risk for diabetes (prediabetes). Fasting plasma glucose results greater than or equal to 126 mg/dL meet the criteria for diagnosis of diabetes. In the absence of unequivocal hyperglycemia, results should be confirmed by repeat testing. In a patient with classic symptoms of hyperglycemia or hyperglycemic crisis, random plasma glucose results greater than or equal to 200 mg/dL meet the criteria for diagnosis of diabetes. Reference: Standards of Medical Care in Diabetes 2016, [place] [employer]. Diabetes Care. 2016.39(Suppl 1). LAB BUN 7-21 mg/dL BUN 13 LAB CRET 0.58-0.96 mg/dL Creatinine 0.75 LAB NA 136-144 mmol/L Sodium 140 LAB K 3.7-5.1 mmol/L Potassium 4.2 LAB CL 97-105 mmol/L Chloride 103 LAB CO2 22-30 mmol/L CO2 26 LAB AGAP 9-18 mmol/L Anion Gap 11 LAB ALT 7-38 U/L ALT 19 LAB GFRAA eGFR- Amer. >60 LAB GFRNAA . eGFR-All Other Races >60 Result Comment: eGFR (Estimated GFR) Units of measure: mL/min/1.73 meters squared eGFR is derived from the reexpressed MDRD Study equation using the following parameters: serum creatinine, age, gender and race. The creatinine assay has been calibrated to be traceable to IDMS. An eGFR <60 mL/min/1.73m2 for >3 months is consistent with chronic kidney disease. Refer to KDOQI guidelines for clinical interpretation. In patients with unstable renal function, e.g. those with acute kidney injury, the eGFR may not accurately reflect actual GFR. Performed By: #### CBC, CMP #### [facility] [address] [place], [place] [address] CNTHERAPY Observed: 08/25/2017 Status: COMPLETED Source: [place] 2:00 PM [facility] REPOSITORY OT/PT/Speech Visit (PTWS) RENAE ELIZONDO ([id number]) 1955 F Date Time Provider Department 08/25/17 2:00 PM RITA SUN (SAMPLE SUPERVISOR) PTWS Date Time Provider Department Center 08/25/2017 2:00 PM [id number], NANCY (SAMPLE SUPERVISOR) PTWS [facility] Reason for Visit: Physical Therapy [503] Primary Visit Diagnosis:Arthritis, midfoot [M19.079] Allergies As of Date: 08/25/2017 Noted Allergy Reaction ADHESIVE TAPE (ROSINS) 02/13/2006 2 - Rash Comments: tore skin/blisters MORPHINE 02/05/2006 5 - Intolerance Comments: vomiting, shaking. NSAIDS (NON-STEROIDAL ANTI-INFLAM*10/05/2014 11 - Vomiting VASOTEC (ENALAPRIL MALEATE) 09/08/2008 Comments: nausea/doesn't work Date Reviewed: 08/25/2017 Reviewed by: Jorge Martinez - Fully Assessed Prescriptions as of 08/25/2017 Sig: HYDROXYCHLOROQUINE 200 MG TAB* TAKE ONE TABLET BY MOUTH TWIC* LEFLUNOMIDE 20 MG TABLET Take 1 tablet by mouth once d* DICLOFENAC 1 % TOPICAL GEL apply topically 4 grams to fo* CHOLECALCIFEROL (VITAMIN D3) * Take 2,000 Units by mouth onc* PROLIA SUBCUTANEOUS Inject subcutaneously once e* CELECOXIB 200 MG CAPSULE Take 200 mg by mouth as neede* MAGNESIUM OXIDE 500 MG TABLET Taking 250mg. Take two tablet* ACETAMINOPHEN 500 MG TABLET Take 500 mg by mouth every 8 * CPAP CHIN STRAP, USED WITH CPAP DE* FLUTICASONE 50 MCG/ACTUATION * Use 1 [place] in each nostril d* FERROUS SULFATE 325 MG (65 MG* Take 325 mg by mouth three ti* ASCORBIC ACID (VITAMIN C) 500* Take 500 mg by mouth three ti* CPAP AutoPAP 10-20 cmH2O, suitable* CYCLOBENZAPRINE 10 MG TABLET LEVOTHYROXINE 50 MCG TABLET Take 50 mcg by mouth daily be* CLOBETASOL 0.05 % TOPICAL CRE* as directed * GABAPENTIN 300 MG CAPSULE Take 300 mg by mouth three ti* * PROMETHAZINE 25 MG TABLET Take one(1) tablet every four* * ATIVAN 1 MG TABLET takes 1/2 tab as needed * FENTANYL 50 MCG/HR TRANSDERMA* Apply as directed. Change pat* * B COMPLEX 1 TABLET Take one(1) tablet daily. * MULTIVITAMIN,TX-MINERALS TABL* 1 tab daily Progress Notes: Orlin Welsh PT 08/25/2017 5:44 PM Signed Episode Visit Count: 10 Therapist That Will Oversee The Plan Of Care: Kat Milton Start of Care Date: 07/14/17 Onset Date: 02/17/17 Patient Identified by Name and Date of : Yes Precaution/Activity Restriction Comments: WBAT L LE Surgical Procedure: L LE Talonavicular fusion (with hardware) Surgical Procedure Date: 02/17/17 [facility] PHYSICAL THERAPY TREATMENT NOTE ASSESSMENT: Renae Elizondo demonstrated increase edema left top of foot and around B malleolus. Added retrograde massage in elevation today with reduction in visible edema in foot. The patient will continue to benefit from continued skilled physical therapy for progression of exercise, pain control with manual techniques and gait with shoes on. PLAN FOR NEXT VISIT: Patient to bring tennis shoes and will work on gait on level with boot off. SUBJECTIVE: Patient reports she had an accident on the way to therapy last visit. She reports soreness in shoulder and arms after that incident. Pain Score: 6/10 Pain Location: Foot - Left (arch and base of toes top of foot.) Description: Aching;Sharp (sharp at times) Frequency: Continuous Post Treatment Pain Score: 6/10 Pain Location: Foot - Left Post Treatment Pain Description: (arch) OBJECTIVE MEASURES WITH LEVEL OF FUNCTION: Decrease edema base of toes and B malleoli region after retrograde massage. TREATMENT: Therapeutic Exercise: 1: AROM ankle pumps x 20 reps 2: AROM ankle inv/ever x 20 reps 3: AROM ankle circles x 20 CW and CCW 4: ankle alphabet x1 5: Seated BAPS PWB left ball 2 A/P, lateral, cw and ccw 1x10. 6: Yellow band left resistive df,pf,inv and evr 2x10. Skilled Intervention: Patient was educated in proper exercise technique and purpose for exercises. Skilled judgment was provided in selection of appropriate interventions. Manual Therapy: 2: Retrograde massage left foot in elevation x 12 minutes. Skilled Intervention: Manual skills to improve joint mobility, ROM, and decrease pain. Utilized anatomy knowledge of the therapist, and assessment of patient's response to intervention. Billing: [facility]: Therapeutic Exercise (99740): 1:1 time: 33 minutes (2 units: 23-37 mins) Manual Therapy ([id number]): 1:1 time: 12 minutes (1 unit: 8-22 mins) Total time: 45 minutes Rita Sun PTRanjit Welsh PT Previous Version Follow-up and Disposition History Recorded PROGRESS Observed: 08/25/2017 Status: COMPLETED Source: [place] 9:59 AM [facility] REPOSITORY HNO ID: [id number] Author: Jorge Martinez Service: (none) Author Type: Physician Type: Progress Notes Filed: 08/29/2017 6:47 AM Note Text: Jorge Martinez MD Department of Orthopaedics Orth[facility] [address] [facility] [address] Dept: [phone] Dept August 25, 2017 CHIEF COMPLAINT: Established Patient (b/l hand pain, last seen 04/08/16 s/p left middle and index IP joint fusion, xray ) Ms. Renae Elizondo is a 62 year old female returns to discuss multiple digits in her hand. The index and middle fingers have become quite painful for her as well as the small finger at the IP joint. Basically reporting 8 out of 10 pain at these 3 digits. She has been very pleased with her previous fusions on the other hand. She is interested in same on this. ASSESSMENT: M19.041 Primary osteoarthritis of right hand (primary encounter diagnosis) M79.644 Pain in finger of right hand PLAN: The risks, benefits, alternatives and potential Occasions were reviewed and the patient would like to pursue fusion of the 2 distal joints as well as the small digit IP joint. OBJECTIVE: Ms. Renae Elizondo is a pleasant 62 year old in no apparent distress. Gen:There were no vitals taken for this visit. nl development, obese, no deformities ENT: Normocephalic, normal hearing, moist mucosa CV: Pulses:Radial= 2+ and symmetric, capillary refill < 2 secs, no peripheral edema/varicosities Skin: no rash, bruising or lesions. Good turgor. Psych: cooperative and appropriate, alert and oriented x 3, good mood and affect. Musculoskeletal: Angular deformities of the index and middle digits with pain and limited motion at the DIP joints. Stiffness and pain and very minimal motion at the IP joint of the small digit. Median, radial and ulnar nerves are intact. Imaging: * * *Final Report* * * DATE OF EXAM: Aug 25 2017 ?8:29AM ? WRX ? 5556 ?- ?XR HAND 3V PA/LAT/OBL KYLE ? / PROCEDURE REASON: multiple diagnoses ?? ? * * * * Physician Interpretation * * * * ?Indication: ?Bilateral hand pain Comparison: ?X-ray left hand 03/05/2016 PA, lateral and oblique views of the right hand and the left hand are obtained. ?There is no acute fracture or dislocation. ?There is no destructive osseous lesion. ?Again noted is fusion of the distal interphalangeal joints of the left second and third digits with surgical pins. ?Hardware is intact. ?Alignment is unchanged. ?There is worsening degenerative disease of the distal interphalangeal joint of the left fourth digit. ?There is unchanged mild degenerative disease of the proximal and distal interphalangeal joints of the left fifth digit. ? There is an osteophyte at the base of the distal phalanx of the right thumb. ?There is degenerative disease of the distal interphalangeal joints of the right second and third digits, and proximal and distal interphalangeal joint of the right fifth digit. Impression: 1. ?No acute fracture 2. ?Fusion of the distal interphalangeal joints of the left second and third digits 3. ?Degenerative disease of bilateral hands Supporting Subjective Information Below: Past Surgical History: PAST SURGICAL HISTORY Procedure Laterality Date - APPENDECTOMY 2001 Done with gastric bypass - COLONOSCOP W/ OR W/O BRSH SPEC 12/05/2008, Colonoscopy - GASTRIC BYPASS-MORBID OBESITY 2000 - MASTECTOMY, MODIFIED RADICAL 08/27/2006 Right MRM - PAST SURGICAL HISTORY OF 2000 venous ligation leg - PAST SURGICAL HISTORY OF Carpal Tunnel - PAST SURGICAL HISTORY OF Left thumb repair - PAST SURGICAL HISTORY OF port acath LEFT - PAST SURGICAL HISTORY OF removal of port - PAST SURGICAL HISTORY OF Left 01/2017 lt 2nd AND 3rd digit repair - OR ANESTH,REPAIR LO ABD HERNIA NOS - OR ANESTH,VAGINAL HYSTERECTOMY 2003 BSO - REMOVAL GALLBLADDER 1992 Cholecystectomy Medications: Current Outpatient Prescriptions: hydroxychloroquine (PLAQUENIL) 200 mg tablet TAKE ONE TABLET BY MOUTH TWICE DAILY leflunomide (ARAVA) 20 mg tablet Take 1 tablet by mouth once daily. diclofenac sodium (VOLTAREN) 1 % topical gel apply topically 4 grams to foot four times a day cholecalciferol (VITAMIN D-3) 2,000 unit tablet Take 2,000 Units by mouth once daily. DENOSUMAB (PROLIA SUBCUTANEOUS) Inject subcutaneously once every 6 months. celecoxib (CELEBREX) 200 mg capsule Take 200 mg by mouth as needed. Magnesium Oxide 500 mg tab Taking 250mg. Take two tablets by mouth once daily. acetaminophen (TYLENOL EXTRA STRENGTH) 500 mg tablet Take 500 mg by mouth every 8 hours as needed. CPAP CHIN STRAP, USED WITH CPAP DEVICE fluticasone (FLONASE) 50 mcg/actuation nasal spray Use 1 [place] in each nostril daily at bedtime. ferrous sulfate 325 mg (65 mg iron) tablet Take 325 mg by mouth three times daily with meals. ascorbic acid (VITAMIN C) 500 mg tablet Take 500 mg by mouth three times daily. CPAP AutoPAP 10-20 cmH2O, suitable mask, humidity, filters. Lifetime supplies. Dx: [phone]. Fax compliance rpt to [phone] in 4-6 weeks. cyclobenzaprine (FLEXERIL) 10 mg tablet levothyroxine (LEVOTHROID) 50 mcg tablet Take 50 mcg by mouth daily before breakfast. CLOBETASOL 0.05 % cream as directed gabapentin 300 mg capsule Take 300 mg by mouth three times daily. PROMETHAZINE 25 MG TAB Take one(1) tablet every four(4) to six(6) hours as needed for nausea. lorazepam(ATIVAN 1 MG TAB) takes 1/2 tab as needed fentanyl 50 mcg/hr TRANSDERM. PT72 Apply as directed. Change patch every 3 days. B COMPLEX 1 TAB Take one(1) tablet daily. MULTIVITAMIN,TX-MINERALS TAB 1 tab daily No current facility-administered medications for this visit. Allergies: Adhesive Tape (Rosins); Morphine; Nsaids (Non-Steroidal Anti-Inflammatory Drug); Vasotec [Enalapril Maleate] ROS: General (negative for fatigue, malaise, weight loss/gain) HEENT (negative for headache, earache, recent vision changes, sinus pain, sore throat) Respiratory (no recent shortness of breath, hemoptysis) CV (negative for chest tightness, palpitations) Musculoskeletal (see HPI) Psych (no depression, anxiety) This note was partially generated using [employer] voice recognition system, and there may be some incorrect words, spellings, and punctuation that were not noted in checking the note before saving. Jorge Martinez MD PROGRESS Observed: 08/25/2017 Status: COMPLETED Source: [place] 9:16 AM [facility] REPOSITORY [facility] ID: [id number] Author: Maida Boland) EVER Rubio Service: (none) Author Type: Registered Nurse Type: Progress Notes Filed: 08/29/2017 6:47 AM Note Text: AMB ROOMING INTAKE FLOWSHEET DATA Risk Screening Do you have concerns about personal safety or safety in the home?: No Pain Pain Score: 8/10 Pain Location: (left and right- index, middle and pinky) Description: Aching Duration Amount of Time: 2 Duration Units: Years Frequency: Intermittent Intervention: Medication, Cold, Heat (tylenol ) Patient presents with: Established Patient: b/l hand pain, last seen 04/08/16 s/p left middle and index IP joint fusion, xray patient is here for pain in b/l hand- left and right finger including index, middle and pinky. Patient states the pain is 8/10 pain and achy and swelling present in fingers, this pain has been going on for 2 years and the pinky is the last 8 months. The pain is intermittent, patient is off work at this time due to a foot injury. Xray completed. Patient is also unable to bend both b/l pinky's. Maida Rubio RN CNOV Observed: 08/25/2017 Status: COMPLETED Source: [place] 8:40 AM [facility] REPOSITORY Office Visit (ORTHWS) RENAE ELIZONDO ([id number]) 1955 F Date Time Provider Department 08/25/17 8:40 AM JORGE MARTINEZ During your visit today, we recorded the following information about you: Maida Rubio RN, RN 08/29/2017 6:47 AM Signed AMB ROOMING INTAKE FLOWSHEET DATA Risk Screening Do you have concerns about personal safety or safety in the home?: No Pain Pain Score: 8/10 Pain Location: (left and right- index, middle and pinky) Description: Aching Duration Amount of Time: 2 Duration Units: Years Frequency: Intermittent Intervention: Medication, Cold, Heat (tylenol ) Patient presents with: Established Patient: b/l hand pain, last seen 04/08/16 s/p left middle and index IP joint fusion, xray patient is here for pain in b/l hand- left and right finger including index, middle and pinky. Patient states the pain is 8/10 pain and achy and swelling present in fingers, this pain has been going on for 2 years and the pinky is the last 8 months. The pain is intermittent, patient is off work at this time due to a foot injury. Xray completed. Patient is also unable to bend both b/l pinky's. EVER Davis MD 08/29/2017 6:47 AM Signed Jorge Martinez MD Department of Orthopaedics Orthopaedics [address] [facility] [address] Dept: [phone] Dept August 25, 2017 CHIEF COMPLAINT: Established Patient (b/l hand pain, last seen 04/08/16 s/p left middle and index IP joint fusion, xray ) Ms. Renae Elizondo is a 62 year old female returns to discuss multiple digits in her hand. The index and middle fingers have become quite painful for her as well as the small finger at the IP joint. Basically reporting 8 out of 10 pain at these 3 digits. She has been very pleased with her previous fusions on the other hand. She is interested in same on this. ASSESSMENT: M19.041 Primary osteoarthritis of right hand (primary encounter diagnosis) M79.644 Pain in finger of right hand PLAN: The risks, benefits, alternatives and potential Occasions were reviewed and the patient would like to pursue fusion of the 2 distal joints as well as the small digit IP joint. OBJECTIVE: Ms. Renae Elizondo is a pleasant 62 year old in no apparent distress. Gen:There were no vitals taken for this visit. nl development, obese, no deformities ENT: Normocephalic, normal hearing, moist mucosa CV: Pulses:Radial= 2+ and symmetric, capillary refill < 2 secs, no peripheral edema/varicosities Skin: no rash, bruising or lesions. Good turgor. Psych: cooperative and appropriate, alert and oriented x 3, good mood and affect. Musculoskeletal: Angular deformities of the index and middle digits with pain and limited motion at the DIP joints. Stiffness and pain and very minimal motion at the IP joint of the small digit. Median, radial and ulnar nerves are intact. Imaging: * * *Final Report* * * DATE OF EXAM: Aug 25 2017 ?8:29AM ? [facility] ? 5556 ?- ?XR HAND 3V PA/LAT/OBL KYLE ? / PROCEDURE REASON: multiple diagnoses ?? ? * * * * Physician Interpretation * * * * ?Indication: ?Bilateral hand pain Comparison: ?X-ray left hand 03/05/2016 PA, lateral and oblique views of the right hand and the left hand are obtained. ?There is no acute fracture or dislocation. ?There is no destructive osseous lesion. ?Again noted is fusion of the distal interphalangeal joints of the left second and third digits with surgical pins. ?Hardware is intact. ?Alignment is unchanged. ?There is worsening degenerative disease of the distal interphalangeal joint of the left fourth digit. ?There is unchanged mild degenerative disease of the proximal and distal interphalangeal joints of the left fifth digit. ? There is an osteophyte at the base of the distal phalanx of the right thumb. ?There is degenerative disease of the distal interphalangeal joints of the right second and third digits, and proximal and distal interphalangeal joint of the right fifth digit. Impression: 1. ?No acute fracture 2. ?Fusion of the distal interphalangeal joints of the left second and third digits 3. ?Degenerative disease of bilateral hands Supporting Subjective Information Below: Past Surgical History: PAST SURGICAL HISTORY Procedure Laterality Date - APPENDECTOMY 2000 Done with gastric bypass - COLONOSCOP W/ OR W/O BRSH SPEC 12/05/2008,12 Colonoscopy - GASTRIC BYPASS-MORBID OBESITY 2000 - MASTECTOMY, MODIFIED RADICAL 08/27/2006 Right MRM - PAST SURGICAL HISTORY OF 2000 venous ligation leg - PAST SURGICAL HISTORY OF Carpal Tunnel - PAST SURGICAL HISTORY OF Left thumb repair - PAST SURGICAL HISTORY OF port acath LEFT - PAST SURGICAL HISTORY OF removal of port - PAST SURGICAL HISTORY OF Left 01/2017 lt 2nd AND 3rd digit repair - OR ANESTH,REPAIR LO ABD HERNIA NOS - OR ANESTH,VAGINAL HYSTERECTOMY 2003 BSO - REMOVAL GALLBLADDER 1993 Cholecystectomy Medications: Current Outpatient Prescriptions: hydroxychloroquine (PLAQUENIL) 200 mg tablet TAKE ONE TABLET BY MOUTH TWICE DAILY leflunomide (ARAVA) 20 mg tablet Take 1 tablet by mouth once daily. diclofenac sodium (VOLTAREN) 1 % topical gel apply topically 4 grams to foot four times a day cholecalciferol (VITAMIN D-3) 2,000 unit tablet Take 2,000 Units by mouth once daily. DENOSUMAB (PROLIA SUBCUTANEOUS) Inject subcutaneously once every 6 months. celecoxib (CELEBREX) 200 mg capsule Take 200 mg by mouth as needed. Magnesium Oxide 500 mg tab Taking 250mg. Take two tablets by mouth once daily. acetaminophen (TYLENOL EXTRA STRENGTH) 500 mg tablet Take 500 mg by mouth every 8 hours as needed. CPAP CHIN STRAP, USED WITH CPAP DEVICE fluticasone (FLONASE) 50 mcg/actuation nasal spray Use 1 [place] in each nostril daily at bedtime. ferrous sulfate 325 mg (65 mg iron) tablet Take 325 mg by mouth three times daily with meals. ascorbic acid (VITAMIN C) 500 mg tablet Take 500 mg by mouth three times daily. CPAP AutoPAP 10-20 cmH2O, suitable mask, humidity, filters. Lifetime supplies. Dx: 327.23. Fax compliance rpt to [phone] in 4-6 weeks. cyclobenzaprine (FLEXERIL) 10 mg tablet levothyroxine (LEVOTHROID) 50 mcg tablet Take 50 mcg by mouth daily before breakfast. CLOBETASOL 0.05 % cream as directed gabapentin 300 mg capsule Take 300 mg by mouth three times daily. PROMETHAZINE 25 MG TAB Take one(1) tablet every four(4) to six(6) hours as needed for nausea. lorazepam(ATIVAN 1 MG TAB) takes 1/2 tab as needed fentanyl 50 mcg/hr TRANSDERM. PT72 Apply as directed. Change patch every 3 days. B COMPLEX 1 TAB Take one(1) tablet daily. MULTIVITAMIN,TX-MINERALS TAB 1 tab daily No current facility-administered medications for this visit. Allergies: Adhesive Tape (Rosins); Morphine; Nsaids (Non-Steroidal Anti-Inflammatory Drug); Vasotec [Enalapril Maleate] ROS: General (negative for fatigue, malaise, weight loss/gain) HEENT (negative for headache, earache, recent vision changes, sinus pain, sore throat) Respiratory (no recent shortness of breath, hemoptysis) CV (negative for chest tightness, palpitations) Musculoskeletal (see HPI) Psych (no depression, anxiety) This note was partially generated using [employer] voice recognition system, and there may be some incorrect words, spellings, and punctuation that were not noted in checking the note before saving. Jorge Martinez MD Referring Provider: SELF [200] Allergies As of Date: 08/25/2017 Noted Allergy Reaction ADHESIVE TAPE (ROSINS) 02/13/2006 2 - Rash Comments: tore skin/blisters MORPHINE 02/05/2006 5 - Intolerance Comments: vomiting, shaking. NSAIDS (NON-STEROIDAL ANTI-INFLAM*10/05/2014 11 - Vomiting VASOTEC (ENALAPRIL MALEATE) 09/08/2008 Comments: nausea/doesn't work Date Reviewed: 08/25/2017 Reviewed by: Jorge Martinez - Fully Assessed Reason for Visit: Established Patient [175] Cmt: b/l hand pain, last seen 04/08/16 s/p left middle and index IP joint fusion, xray Reason For Visit History Recorded Primary Visit Diagnosis:Primary osteoarthritis of right hand [M19.041] Other Visit Diagnosis:Pain in finger of right hand [M79.644] Order(s):SURGICAL REQUEST - ELECTIVE [[id number]] Order #: [id number]: 1 Prescriptions as of 08/25/2017 Sig: HYDROXYCHLOROQUINE 200 MG TAB* TAKE ONE TABLET BY MOUTH TWIC* LEFLUNOMIDE 20 MG TABLET Take 1 tablet by mouth once d* DICLOFENAC 1 % TOPICAL GEL apply topically 4 grams to fo* CHOLECALCIFEROL (VITAMIN D3) * Take 2,000 Units by mouth onc* PROLIA SUBCUTANEOUS Inject subcutaneously once e* CELECOXIB 200 MG CAPSULE Take 200 mg by mouth as neede* MAGNESIUM OXIDE 500 MG TABLET Taking 250mg. Take two tablet* ACETAMINOPHEN 500 MG TABLET Take 500 mg by mouth every 8 * CPAP CHIN STRAP, USED WITH CPAP DE* FLUTICASONE 50 MCG/ACTUATION * Use 1 [place] in each nostril d* FERROUS SULFATE 325 MG (65 MG* Take 325 mg by mouth three ti* ASCORBIC ACID (VITAMIN C) 500* Take 500 mg by mouth three ti* CPAP AutoPAP 10-20 cmH2O, suitable* CYCLOBENZAPRINE 10 MG TABLET LEVOTHYROXINE 50 MCG TABLET Take 50 mcg by mouth daily be* CLOBETASOL 0.05 % TOPICAL CRE* as directed * GABAPENTIN 300 MG CAPSULE Take 300 mg by mouth three ti* * PROMETHAZINE 25 MG TABLET Take one(1) tablet every four* * ATIVAN 1 MG TABLET takes 1/2 tab as needed * FENTANYL 50 MCG/HR TRANSDERMA* Apply as directed. Change pat* * B COMPLEX 1 TABLET Take one(1) tablet daily. * MULTIVITAMIN,TX-MINERALS TABL* 1 tab daily Problem List As Of Date 08/25/2017 Noted Resolved LUMP OR MASS IN BREAST [N63.0] INVALID FOR* MALIG NEOPLASM BREAST-CENTRAL [C50.119] INVALID FOR* SEROMA, POST OP [[id number]] INVALID FOR*09/30/2016 ANEMIA NOS [D64.9] INVALID FOR* Sacroiliac joint pain [M53.3] INVALID FOR* Benign neoplasm of skin of trunk, except scrotu*INVALID FOR* HARRISON (obstructive sleep apnea) AHI 13, but with *INVALID FOR* More... RLS (restless legs syndrome) [G25.81] INVALID FOR* Low ferritin level [R79.0] INVALID FOR* Sarcoidosis (HCC) [D86.9] INVALID FOR* Nasal congestion, nocturnal. 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 Pain in finger of right hand [M79.644] INVALID FOR* More... 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 Encounter Status:Closed by JORGE MARTINEZ MD on 08/29/17 XR HAND 3V PA/LAT/OBL Observed: 08/25/2017 Status: F Source: [facility] 8:29 AM [facility] [place] REPOSITORY * * *Final Report* * * DATE OF EXAM: Aug 25 2017 8:29AM WRX [id number] - XR HAND 3V PA/LAT/OBL KYLE / PROCEDURE REASON: multiple diagnoses * * * * Physician Interpretation * * * * Indication: Bilateral hand pain Comparison: X-ray left hand 03/05/2016 PA, lateral and oblique views of the right hand and the left hand are obtained. There is no acute fracture or dislocation. There is no destructive osseous lesion. Again noted is fusion of the distal interphalangeal joints of the left second and third digits with surgical pins. Hardware is intact. Alignment is unchanged. There is worsening degenerative disease of the distal interphalangeal joint of the left fourth digit. There is unchanged mild degenerative disease of the proximal and distal interphalangeal joints of the left fifth digit. There is an osteophyte at the base of the distal phalanx of the right thumb. There is degenerative disease of the distal interphalangeal joints of the right second and third digits, and proximal and distal interphalangeal joint of the right fifth digit. Impression: 1. No acute fracture 2. Fusion of the distal interphalangeal joints of the left second and third digits 3. Degenerative disease of bilateral hands 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: PSCB Transcribe Date/Time: Aug 26 2017 11:47A Dictated by : AMBER BRIGHT MD This examination was interpreted and the report reviewed and electronically signed by: AMBER BRIGHT MD on Aug 26 2017 11:51AM EST [id number] Observed: 08/25/2017 Status: COMPLETED Source: [place] 8:21 AM [facility] [place] REPOSITORY HNO ID: [id number] Author: Rocio Thomas (Rt) Dylan Navas Service: (none) Author Type: Kindergarten Paraprofessional Type: Progress Notes Filed: 08/25/2017 8:29 AM Note Text: Radiology Service Progress Note PATIENT NAME: Renae Elizondo DATE OF SERVICE: August 25, 2017 TIME: 8:21 AM PATIENT IDENTITY VERIFICATION COMPLETED USING TWO (2) METHODS: Patient confirmed name verbally and Date of . PATIENT GENDER DATA: Female. status: : No status: NO. PATIENT RELEVANT IMPLANT DATA REVIEWED: Not Applicable RADIOLOGY DEPARTMENT: General X-ray: Exam(s) Completed: Upper Extremity X-Ray(s): Hand, bilateral : PERIPHERAL IV DATA: Not applicable SIGNED BY: RT Boo August 25, 2017 8:21 AM CNPN Observed: 08/25/2017 Status: COMPLETED Source: [place] 12:00 AM [facility] [place] REPOSITORY Telephone (ORTHWS) CARORENAE L ([id number]) 1955 F Date Time Provider Department 08/25/17 JORGE MARTINEZ During your visit today, we recorded the following information about you: Maida Rubio RN, RN 08/25/2017 11:29 AM Signed Patient scheduled for right index finger, distal IP joint fusion, right middle finger distal IP joint fusion, right small finger, middle IP joint fusion for September 05. Osteomed screws and mini C-arms needed for surgery. Schedule request placed. EVER Davis RN, RN 08/25/2017 12:17 PM Signed Letter of confirmation and postops mailed to patients home. *Please sign OT order for after first postop.* EVER Davis PA-C 08/25/2017 12:22 PM Signed Order signed. Maida Rubio RN, RN 08/25/2017 2:00 PM Signed Faxed OT order to [facility] to schedule OT appt after first postop. EVER Davis RN, RN 08/25/2017 3:12 PM Signed Received confirmation. Maida Rubio RN Allergies As of Date: 08/25/2017 Noted Allergy Reaction ADHESIVE TAPE (ROSINS) 02/13/2006 2 - Rash Comments: tore skin/blisters MORPHINE 02/05/2006 5 - Intolerance Comments: vomiting, shaking. NSAIDS (NON-STEROIDAL ANTI-INFLAM*10/05/2014 11 - Vomiting VASOTEC (ENALAPRIL MALEATE) 09/08/2008 Comments: nausea/doesn't work Date Reviewed: 08/25/2017 Reviewed by: Jorge Martinez - Fully Assessed Reason for Visit: Schedule Surgery [1330] Primary Visit Diagnosis:Osteoarthritis of finger of left hand [M19.042] Order(s):CONSULT TO PUBLIC SERVICES LIBRARIAN [[id number]] Order #: [id number]: 1 Prescriptions as of 08/25/2017 Sig: HYDROXYCHLOROQUINE 200 MG TAB* TAKE ONE TABLET BY MOUTH TWIC* LEFLUNOMIDE 20 MG TABLET Take 1 tablet by mouth once d* DICLOFENAC 1 % TOPICAL GEL apply topically 4 grams to fo* CHOLECALCIFEROL (VITAMIN D3) * Take 2,000 Units by mouth onc* PROLIA SUBCUTANEOUS Inject subcutaneously once e* CELECOXIB 200 MG CAPSULE Take 200 mg by mouth as neede* MAGNESIUM OXIDE 500 MG TABLET Taking 250mg. Take two tablet* ACETAMINOPHEN 500 MG TABLET Take 500 mg by mouth every 8 * CPAP CHIN STRAP, USED WITH CPAP DE* FLUTICASONE 50 MCG/ACTUATION * Use 1 [place] in each nostril d* FERROUS SULFATE 325 MG (65 MG* Take 325 mg by mouth three ti* ASCORBIC ACID (VITAMIN C) 500* Take 500 mg by mouth three ti* CPAP AutoPAP 10-20 cmH2O, suitable* CYCLOBENZAPRINE 10 MG TABLET LEVOTHYROXINE 50 MCG TABLET Take 50 mcg by mouth daily be* CLOBETASOL 0.05 % TOPICAL CRE* as directed * GABAPENTIN 300 MG CAPSULE Take 300 mg by mouth three ti* * PROMETHAZINE 25 MG TABLET Take one(1) tablet every four* * ATIVAN 1 MG TABLET takes 1/2 tab as needed * FENTANYL 50 MCG/HR TRANSDERMA* Apply as directed. Change pat* * B COMPLEX 1 TABLET Take one(1) tablet daily. * MULTIVITAMIN,TX-MINERALS TABL* 1 tab daily Problem List As Of Date 08/25/2017 Noted Resolved LUMP OR MASS IN BREAST [N63.0] INVALID FOR* MALIG NEOPLASM BREAST-CENTRAL [C50.119] INVALID FOR* SEROMA, POST OP [[id number]] INVALID FOR*09/30/2016 ANEMIA NOS [D64.9] INVALID FOR* Sacroiliac joint pain [M53.3] INVALID FOR* Benign neoplasm of skin of trunk, except scrotu*INVALID FOR* HARRISON (obstructive sleep apnea) AHI 13, but with *INVALID FOR* More... RLS (restless legs syndrome) [G25.81] INVALID FOR* Low ferritin level [R79.0] INVALID FOR* Sarcoidosis (HCC) [D86.9] INVALID FOR* Nasal congestion, nocturnal. 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 Pain in finger of right hand [M79.644] INVALID FOR* More... 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 Letter Text SURGERY CONFIRMATION FORM Name: Renae Elizondo [facility] #: [id number] Doctor: Jorge Martinez M.D. Dear Renae , Your Procedure/Surgery is scheduled at : [facility] on September 05, 2017. You will be contacted by our Pre-Anesthesia Clearance Center (PACC) regarding an appointment for anesthesia clearance. You will be instructed where to check in for this appointment. Pre-anesthesia clearance is required for all patients undergoing anesthesia in the Operating Room. This will help determine if you have any risk factors for anesthesia during your surgery. If you are unable to keep your PACC appointment please call the [facility] PACC department to reschedule as soon as possible at [phone]. You will be contacted by 3pm by [facility] patients the day prior to your procedure/surgery to review any pre-operative instructions and to confirm your arrival time. If your procedure/surgery is scheduled for a Friday, you will receive a call on the prior Friday. If you have not been called by the above times, please call our Outpatient Surgery Center Schedulers at [phone] for your time. If you need to cancel your procedure/surgery for [place] patients, please contact your physician's office at [phone] and ask for the Orthopedic nurse's desk. [place] patients can call [phone] and ask to speak with Marine Robbins or may call [facility] at [phone]. Your follow up appointments for your procedure/surgery have been scheduled and are attached. If these times do not work for you, please call the corresponding office to reschedule. Our goal is to make this process go smoothly for you. Please do not hesitate to call us with questions or concerns. Thank you, The Orthopedic Department Encounter Status:Closed by IRENE DE PAZ PA-C on 08/25/17 HOSP Observed: 08/25/2017 Status: COMPLETED Source: [place] 12:00 AM CLINIC OTHER CAMPUS REPOSITORY Patient:Renae Elizondo MRN: <[id number]> Height:5' 0(1.524 m) Weight:209 lb (94.802 kg) Outpatient Medications as of 09/05/17: hydroxychloroquine (PLAQUENIL) 200 mg tablet leflunomide (ARAVA) 20 mg tablet diclofenac sodium (VOLTAREN) 1 % topical gel cholecalciferol (VITAMIN D-3) 2,000 unit tablet DENOSUMAB (PROLIA SUBCUTANEOUS) celecoxib (CELEBREX) 200 mg capsule Magnesium Oxide 500 mg tab acetaminophen (TYLENOL EXTRA STRENGTH) 500 mg tablet CPAP fluticasone (FLONASE) 50 mcg/actuation nasal spray ferrous sulfate 325 mg (65 mg iron) tablet ascorbic acid (VITAMIN C) 500 mg tablet CPAP cyclobenzaprine (FLEXERIL) 10 mg tablet levothyroxine (LEVOTHROID) 50 mcg tablet CLOBETASOL 0.05 % cream gabapentin 300 mg capsule PROMETHAZINE 25 MG TAB lorazepam(ATIVAN 1 MG TAB) fentanyl 50 mcg/hr TRANSDERM. PT72 B COMPLEX 1 TAB MULTIVITAMIN,TX-MINERALS TAB Admission/Clinic Administered Medications as of 09/05/17: lactated ringers infusion ceFAZolin iv piggyback 2 g in D5W (iso-osmotic) 100 mL (ANCEF) scopolamine 1 mg over 3 days 1 Patch (TRANSDERM-SCOP) scopolamine - REMOVE PATCH scopolamine - VERIFY patch Problem List: Lump or mass in breast [N63.0] Malignant neoplasm of central portion of female breast (HCC) [C50.119] Anemia, unspecified [D64.9] Sacroiliac joint pain [M53.3] Benign neoplasm of skin of trunk, except scrotum [D23.5] HARRISON (obstructive sleep apnea) AHI 13, but with hypercapnea [G47.33] RLS (restless legs syndrome) [G25.81] Low ferritin level [R79.0] Sarcoidosis (HCC) [D86.9] Nasal congestion, nocturnal. 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] Arthritis, midfoot [M19.079] Pain in finger of right hand [M79.644] Primary osteoarthritis of right hand [M19.041] Obesity, Class III, BMI >= 40 [E66.01] Allergies: Adhesive Tape (Rosins) Morphine Nsaids (Non-Steroidal Anti-Inflammatory Drug) Vasotec [Enalapril Maleate] Date Verified: 09/05/17 Lab Values Lab Value Units Date High Low POTA* 4.2 mmol/L 08/25/2017 5.1 3.7 APOLONIA* 38.1 % 08/25/2017 46.0 36.0 Progress Notes (PT [facility]): Mando Urias, PT 09/04/2017 12:39 PM Signed Episode Visit Count: 13 Therapist That Will Oversee The Plan Of Care: Kat Milton Start of Care Date: 07/14/17 Onset Date: 02/17/17 Patient Identified by Name and Date of : Yes REHABILITATION AND SPORTS THERAPY PHYSICAL THERAPY TREATMENT NOTE ASSESSMENT: Renae Elizondo demonstrated difficulty with gait and active movement since last seen. She reports falling since last visit and had boot on and has been more painful. Decreased intensity of exercise today. Swelling after retrograde massage decreased. Overall pain was slightly increased at end of treatment. The patient will continue to benefit from continued skilled physical therapy for progression of active exercise and progression of being out of the boot. Will try gait with st cane next visit. PLAN FOR NEXT VISIT: Possibly try gait with st cane with tennis shoes and with boot on. SUBJECTIVE: Patient reports she was walking down some stairs yesterday and tripped on bottm step and fell. She reports the boot was on and pain and swelling increased.. Patient reports increase burning after last therapy. She reports swelling was better after last therapy. Pain Score: 6/10 Pain Location: Foot - Left Description: Aching Frequency: Continuous Post Treatment Pain Score: 7/10 Pain Location: Ankle - Left Post Treatment Pain Description: Aching OBJECTIVE MEASURES WITH LEVEL OF FUNCTION: Increase swelling left lateral malleoli and top of foot today. TREATMENT: Therapeutic Exercise: 1: AROM ankle pumps x 10 reps 2: AROM ankle inv/ever x 10 reps 3: Forward step ups onto 4 step leading with left and right LE x 3 each with // bar assist. 4: ankle alphabet x1 Skilled Intervention: Patient was educated in proper exercise technique and purpose for exercises. Skilled judgment was provided in selection of appropriate interventions. Manual Therapy: 2: Retrograde massage left foot in elevation x 12 minutes. Skilled Intervention: Manual skills to improve joint mobility, ROM, and decrease pain. Utilized anatomy knowledge of the therapist, and assessment of patient's response to intervention. Gait Trainin: Gait in ll bars with instruction on heel strike, foot flat and push off over toes on left during swing through of gait with 2 UE assist from ll bars.. 2: Side stepping in // bars back and forth x 1 each direction. 3: Gait with walker with hesitant slow gait . Skilled Intervention: Facilitated proper gait cycle with the use of verbal cues for correction of gait deviations identified in the objective section above. Billing: [facility]: Therapeutic Exercise (88520): 1:1 time: 20 minutes (1 unit: 8-22 mins) Manual Therapy (66644): 1:1 time: 12 minutes (1 unit: 8-22 mins) Gait Training (04775): 1:1 time: 13 minutes (1 unit: 8-22 mins) Total time: 45 minutes Rita Sun, PT-[place] Urias, PT Previous Version Progress Notes (PT [facility]): Kat Milton PT 09/01/2017 1:33 PM Signed Episode Visit Count: 12 Therapist That Will Oversee The Plan Of Care: Kat Milton Start of Care Date: 07/14/17 Onset Date: 02/17/17 Patient Identified by Name and Date of : Yes REHABILITATION AND SPORTS THERAPY PHYSICAL THERAPY TREATMENT NOTE ASSESSMENT: Renae Elizondo demonstrated difficulty with step length with walking into therapy with boot on and no assistive device. Patient able to improve step length in // bars and with use of walker with tennis shoes on. Patient is having pain anterior foot with push off with tennis shoe on. Gait with shoe on is improving with use of walker but pain persists. The patient will continue to benefit from continued skilled physical therapy for gait with tennis shoes on, ROM and strengthening of left foot and ankle. PLAN FOR NEXT VISIT: Continue with gait , manual therapy and strengthening exercises. SUBJECTIVE: Patient reports increase soreness with trying to walk more normal with shoes on. Patient with soreness top of foot. Patient reports decrease swelling today. Pain Score: 5/10 Pain Location: Foot - Left Description: Aching;Throbbing Frequency: Continuous Post Treatment Pain Score: 6/10 Pain Location: Foot - Left Post Treatment Pain Description: Aching;Throbbing OBJECTIVE MEASURES WITH LEVEL OF FUNCTION: Posture / Alignment LE Observations: decrease visible edema left foot and ankle thorughout treatment. TREATMENT: Therapeutic Exercise: 4: ankle alphabet x1 5: Seated BAPS PWB left ball 2 A/P, lateral and cw and ccw x10 each. 6: Yellow band left resistive df,pf,inv and evr 1x10. Skilled Intervention: Patient was educated in proper exercise technique and purpose for exercises. Reviewed and educated patient on additions/changes for home exercise program continue with exercise on a regular basis possibly with foot in elevated position. Correct performance of therapeutic exercises was facilitated with verbal cuing. Manual Therapy: 2: Retrograde massage left foot in elevation x 12 minutes. Skilled Intervention: Manual skills to improve joint mobility, ROM, and decrease pain. Utilized anatomy knowledge of the therapist, and assessment of patient's response to intervention. Gait Trainin: Gait in ll bars with instruction on heel strike, foot flat and push off over toes on left during swing through of gait with 2 UE assist from ll bars.. 2: Gait on level with FFW 30 feet x 2 with improved push off during swing through of gait. Skilled Intervention: Facilitated proper gait cycle with the use of verbal and visual cues for correction of gait deviations identified in the objective section above. Skilled judgment used to assess proper use of assistive device. Billing: [facility]: Therapeutic Exercise (35201): 1:1 time: 17 minutes (1 unit: 8-22 mins) Manual Therapy (94158): 1:1 time: 12 minutes (1 unit: 8-22 mins) Gait Training (97989): 1:1 time: 12 minutes (1 unit: 8-22 mins) Total time: 41 minutes Rita Sun, PT-A Kat Milton, PT Previous Version PROGRESS Observed: 08/18/2017 Status: COMPLETED Source: [place] 10:38 AM [facility] [place] REPOSITORY O ID: [id number] Author: Kat (Pt) Yoan Service: (none) Author Type: Physical Therapist Type: Progress Notes Filed: 08/18/2017 12:40 PM Note Text: Episode Visit Count: 9 Therapist That Will Oversee The Plan Of Care: Kat Milton Start of Care Date: 07/14/17 Onset Date: 02/17/17 Patient Identified by Name and Date of : Yes Precaution/Activity Restriction Comments: WBAT L LE Surgical Procedure: L LE Talonavicular fusion (with hardware) Surgical Procedure Date: 02/17/17 REHABILITATION AND SPORTS THERAPY PHYSICAL THERAPY PROGRESS REPORT PLAN OF CARE UPDATE: Assessment: Renae Elizondo exhibits difficulty with abnormal and limited gait, weakness, decreased AROM, and increased edema and improvements in increased ankle AROM and strength, and less deviation during ambulation. She continues to be limited with walking in the community, stair negotiation and sleeping. She is progressing slower than expected towards her therapy goals as demonstrated by: documented subjective information on progress and documented objective information regarding gait, strength, range of motion and edema. She will benefit from continued skilled therapy requiring therapeutic exercise, gait instruction and manual techniques for edema management in order to further improve and meet her goals of increased function and decreased pain. Functional gains: Improved gait quality Improved sleep Increased endurance / activity tolerance Increased independence with HEP Increased ROM Increased strength Goals for Episode of Care: created on 07/14/17 through 09/13/17 Goals updated on 08/18/2017. [place] in home exercise program. (Met) Patient will decrease pain rating by 2 points to meet minimal clinical important difference for numeric pain rating scale. (Partially Met)- inconsistent Patient will increase active ROM of L ankle to allow pt to improved performance of ADLs and to normalize gait mechanics / gait pattern . (Partially Met)- progressing Patient will increase strength of L LE to 4+ to 5/5 to allow for return to prior functional status and normalized gait mechanics. (Partially Met)- progressing Perform community ambulation, stair negotiation and undisturbed sleep with decreased report of symptoms/pain in 8 weeks. (Partially Met)- improving Demonstrate improvement on functional score: Patient will increase his/her score on the Lower Extremity Functional Scale by at least 9 points to indicate a Minimal Clinical Important Difference. (Not Met) Normal gait. (Not Met) Planned Interventions, Frequency, and Duration: 2x/week, 4 weeks Total Number of Visits Planned: 8 Patient to be seen for PLAN FOR NEXT VISIT: Continue to advance strengthening and ROM with gradual transition to weight bearing exercises as tolerated. SUBJECTIVE: Pt reports the heat and humidity is causing increased swelling in L LE (and hands also). She states she is still limited in amount of ambulation d/t increased soreness. She notes that most nights the pain does not bother her, but every few nights or so she will have to reposition. Pain Score: 8/10 (Between 7 and 8.) Pain Location: Foot - Left (arch of foot) Description: Aching;Pressure Frequency: Continuous Post Treatment Pain Score: 6/10 (to touch 7/10) Pain Location: Foot - Left (medial arch, lateral ankle) OBJECTIVE MEASURES WITH LEVEL OF FUNCTION: Posture / Alignment LE Observations: 2 above mall: L 24; B mall.: L 27.5; heel: L 35; midfoot: L 27; MTP: L 25.5. Ankle Observations L Ankle Presents with: Comments L Atrophy : Coloration is reduced,, but remains mildly present. Ankle Brace/Support: Boot (L LE) Gait Gait: Independent Gait Deviations: Left Lower Extremity Gait Deviations Left Lower Extremity: Stance time decreased;Push-off during terminal stance decreased;Step length decreased Gait Observation: Pt demonstrates improved gait in that she is no longer reaching for tapia and furniture. Maintains antalgic pettern and deviations related to wearing the boot, but overall improved. LE AROM L Ankle Dorsiflexion: 3 Degrees L Ankle Plantar Flexion: 45 Degrees L Ankle Inversion: 15 (stiff and minimal pain) L Ankle Eversion: 20 LE Strength L Knee Extension (L3): 4/5 L Knee Flexion: 4+/5 L Ankle Dorsiflexion (L4): 4-/5 (min pain) L Ankle Plantar Flexion: 4/5 L Ankle Inversion: 4-/5 (min pain) L Ankle Eversion: 4-/5 TREATMENT: Therapeutic Exercise: 1: AROM ankle pumps x 20 reps 2: AROM ankle inv/ever x 20 reps 3: AROM ankle circles x 20 CW and CCW 4: ankle alphabet x1 5: Seated BAPS PWB left ball 2 A/P, lateral, cw and ccw 1x10. and 1x5. 6: Yellow band left resistive df,pf,inv and evr 1x10. 7: seated left toe raises 1x20 reps 8: seated left ankle heel raises 1x20 reps Skilled Intervention: Patient was educated in proper exercise technique and purpose for exercises. Reviewed and educated patient on additions/changes for home exercise program and pt is to continue with current HEP including increased L LE elevation to address increased edema. Skilled judgment was provided in selection of appropriate interventions. Correct performance of therapeutic exercises was facilitated with verbal and visual cuing. Patient education as noted. Billing: [facility]: Therapeutic Exercise ([id number]): 1:1 time: 45 minutes (3 units: 38-52 mins) Total time: 45 minutes Kat Milton PT CNTHERAPY Observed: 08/18/2017 Status: COMPLETED Source: [place] 10:30 AM [facility] [place] REPOSITORY OT/PT/Speech Visit (PTWS) RENAE ELIZONDO ([id number]) 1955 F Date Time Provider Department 08/18/17 10:30 AM KAT MILTON (PT) PTWS Date Time Provider Department Center 08/18/2017 10:30 AM [id number] MILTON (PT) PTWS [facility] Reason for Visit: PT Progress Note [1596] Primary Visit Diagnosis:Arthritis, midfoot [M19.079] Allergies As of Date: 08/18/2017 Noted Allergy Reaction ADHESIVE TAPE (ROSINS) 02/13/2006 2 - Rash Comments: tore skin/blisters MORPHINE 02/05/2006 5 - Intolerance Comments: vomiting, shaking. NSAIDS (NON-STEROIDAL ANTI-INFLAM*10/05/2014 11 - Vomiting VASOTEC (ENALAPRIL MALEATE) 09/08/2008 Comments: nausea/doesn't work Date Reviewed: 07/07/2017 Reviewed by: Milana Humphrey Ma - Fully Assessed Prescriptions as of 08/18/2017 Sig: HYDROXYCHLOROQUINE 200 MG TAB* TAKE ONE TABLET BY MOUTH TWIC* LEFLUNOMIDE 20 MG TABLET Take 1 tablet by mouth once d* DICLOFENAC 1 % TOPICAL GEL apply topically 4 grams to fo* CHOLECALCIFEROL (VITAMIN D3) * Take 2,000 Units by mouth onc* PROLIA SUBCUTANEOUS Inject subcutaneously once e* CELECOXIB 200 MG CAPSULE Take 200 mg by mouth as neede* MAGNESIUM OXIDE 500 MG TABLET Taking 250mg. Take two tablet* ACETAMINOPHEN 500 MG TABLET Take 500 mg by mouth every 8 * CPAP CHIN STRAP, USED WITH CPAP DE* FLUTICASONE 50 MCG/ACTUATION * Use 1 [place] in each nostril d* FERROUS SULFATE 325 MG (65 MG* Take 325 mg by mouth three ti* ASCORBIC ACID (VITAMIN C) 500* Take 500 mg by mouth three ti* CPAP AutoPAP 10-20 cmH2O, suitable* CYCLOBENZAPRINE 10 MG TABLET LEVOTHYROXINE 50 MCG TABLET Take 50 mcg by mouth daily be* CLOBETASOL 0.05 % TOPICAL CRE* as directed * GABAPENTIN 300 MG CAPSULE Take 300 mg by mouth three ti* * PROMETHAZINE 25 MG TABLET Take one(1) tablet every four* * ATIVAN 1 MG TABLET takes 1/2 tab as needed * FENTANYL 50 MCG/HR TRANSDERMA* Apply as directed. Change pat* * B COMPLEX 1 TABLET Take one(1) tablet daily. * MULTIVITAMIN,TX-MINERALS TABL* 1 tab daily Progress Notes: Kat Milton, PT 08/18/2017 12:40 PM Addendum Episode Visit Count: 9 Therapist That Will Oversee The Plan Of Care: Kat Milton Start of Care Date: 07/14/17 Onset Date: 02/17/17 Patient Identified by Name and Date of : Yes Precaution/Activity Restriction Comments: WBAT L LE Surgical Procedure: L LE Talonavicular fusion (with hardware) Surgical Procedure Date: 02/17/17 REHABILITATION AND SPORTS THERAPY PHYSICAL THERAPY PROGRESS REPORT PLAN OF CARE UPDATE: Assessment: Renae Elizondo exhibits difficulty with abnormal and limited gait, weakness, decreased AROM, and increased edema and improvements in increased ankle AROM and strength, and less deviation during ambulation. She continues to be limited with walking in the community, stair negotiation and sleeping. She is progressing slower than expected towards her therapy goals as demonstrated by: documented subjective information on progress and documented objective information regarding gait, strength, range of motion and edema. She will benefit from continued skilled therapy requiring therapeutic exercise, gait instruction and manual techniques for edema management in order to further improve and meet her goals of increased function and decreased pain. Functional gains: Improved gait quality Improved sleep Increased endurance / activity tolerance Increased independence with HEP Increased ROM Increased strength Goals for Episode of Care: created on 07/14/17 through 09/13/17 Goals updated on 08/18/2017. [place] in home exercise program. (Met) Patient will decrease pain rating by 2 points to meet minimal clinical important difference for numeric pain rating scale. (Partially Met)- inconsistent Patient will increase active ROM of L ankle to allow pt to improved performance of ADLs and to normalize gait mechanics / gait pattern . (Partially Met)- progressing Patient will increase strength of L LE to 4+ to 5/5 to allow for return to prior functional status and normalized gait mechanics. (Partially Met)- progressing Perform community ambulation, stair negotiation and undisturbed sleep with decreased report of symptoms/pain in 8 weeks. (Partially Met)- improving Demonstrate improvement on functional score: Patient will increase his/her score on the Lower Extremity Functional Scale by at least 9 points to indicate a Minimal Clinical Important Difference. (Not Met) Normal gait. (Not Met) Planned Interventions, Frequency, and Duration: 2x/week, 4 weeks Total Number of Visits Planned: 8 Patient to be seen for PLAN FOR NEXT VISIT: Continue to advance strengthening and ROM with gradual transition to weight bearing exercises as tolerated. SUBJECTIVE: Pt reports the heat and humidity is causing increased swelling in L LE (and hands also). She states she is still limited in amount of ambulation d/t increased soreness. She notes that most nights the pain does not bother her, but every few nights or so she will have to reposition. Pain Score: 8/10 (Between 7 and 8.) Pain Location: Foot - Left (arch of foot) Description: Aching;Pressure Frequency: Continuous Post Treatment Pain Score: 6/10 (to touch 7/10) Pain Location: Foot - Left (medial arch, lateral ankle) OBJECTIVE MEASURES WITH LEVEL OF FUNCTION: Posture / Alignment LE Observations: 2 above mall: L 24; B mall.: L 27.5; heel: L 35; midfoot: L 27; MTP: L 25.5. Ankle Observations L Ankle Presents with: Comments L Atrophy : Coloration is reduced,, but remains mildly present. Ankle Brace/Support: Boot (L LE) Gait Gait: Independent Gait Deviations: Left Lower Extremity Gait Deviations Left Lower Extremity: Stance time decreased;Push- off during terminal stance decreased;Step length decreased Gait Observation: Pt demonstrates improved gait in that she is no longer reaching for tapia and furniture. Maintains antalgic pettern and deviations related to wearing the boot, but overall improved. LE AROM L Ankle Dorsiflexion: 3 Degrees L Ankle Plantar Flexion: 45 Degrees L Ankle Inversion: 15 (stiff and minimal pain) L Ankle Eversion: 20 LE Strength L Knee Extension (L3): 4/5 L Knee Flexion: 4+/5 L Ankle Dorsiflexion (L4): 4-/5 (min pain) L Ankle Plantar Flexion: 4/5 L Ankle Inversion: 4-/5 (min pain) L Ankle Eversion: 4-/5 TREATMENT: Therapeutic Exercise: 1: AROM ankle pumps x 20 reps 2: AROM ankle inv/ever x 20 reps 3: AROM ankle circles x 20 CW and CCW 4: ankle alphabet x1 5: Seated BAPS PWB left ball 2 A/P, lateral, cw and ccw 1x10. and 1x5. 6: Yellow band left resistive df,pf,inv and evr 1x10. 7: seated left toe raises 1x20 reps 8: seated left ankle heel raises 1x20 reps Skilled Intervention: Patient was educated in proper exercise technique and purpose for exercises. Reviewed and educated patient on additions/changes for home exercise program and pt is to continue with current HEP including increased L LE elevation to address increased edema. Skilled judgment was provided in selection of appropriate interventions. Correct performance of therapeutic exercises was facilitated with verbal and visual cuing. Patient education as noted. Billing: [facility]: Therapeutic Exercise ([id number]): 1:1 time: 45 minutes (3 units: 38-52 mins) Total time: 45 minutes Kat Milton PT Previous Version PROGRESS Observed: 08/06/2017 Status: COMPLETED Source: [place] 9:32 AM [facility] [place] REPOSITORY HNO ID: [id number] Author: Kat (Pt) Yoan Service: (none) Author Type: Physical Therapist Type: Progress Notes Filed: 08/06/2017 10:31 AM Note Text: Episode Visit Count: 8 Therapist That Will Oversee The Plan Of Care: YoanCarlyKat Start of Care Date: 07/14/17 Onset Date: 02/17/17 Patient Identified by Name and Date of : Yes REHABILITATION AND SPORTS THERAPY PHYSICAL THERAPY TREATMENT NOTE ASSESSMENT: Renae Elizondo demonstrated difficulty with CW/CCW movements on the BAPS board and improvements in overall control during BAPS board. Good tolerance to addition of yellow band resisted ankle movements. The patient will continue to benefit from continued skilled physical therapy for progression of AROM and strengthening using BAPS and resistive band per patient tolerance with manual techniques for edema control. PLAN FOR NEXT VISIT: Continue to progress AROM and strengthening to tolerance with manual techniques for edema control. SUBJECTIVE: Pt reports pain in medial arch area and dorsum of foot. States it was a little more sore from being on it a little too much yesterday. She states the movement in her ankle seems to be improving, but she is still limited in the amount of time she tolerates on her feet. Pain Score: 6/10 Pain Location: Foot - Left Description: Aching Frequency: Continuous Post Treatment Pain Score: 5/10 Pain Location: Foot - Left;Heel - Left OBJECTIVE MEASURES WITH LEVEL OF FUNCTION: Ankle Observations L Ankle Presents with: Comments L Atrophy : Purpleish coloring L foot (generalized with increased venous visibility (foot in dependent position). At end of treatment demonstrates improved, pinkish more normal coloration. Foot is warm to touch, but toes are cool. TREATMENT: Therapeutic Exercise: 1: AROM ankle pumps x 20 reps 2: AROM ankle inv/ever x 20 reps 3: AROM ankle inv/ever x 20 reps 4: ankle alphabet x1 5: Seated BAPS PWB left ball 2 A/P, lateral, cw and ccw 1x10. and 1x5. 6: Yellow band left resistive df,pf,inv and evr 1x10. 7: seated left toe raises 1x20 reps 8: seated left ankle heel raises 1x20 reps Skilled Intervention: Patient was educated in proper exercise technique and purpose for exercises. Reviewed and educated patient on additions/changes for home exercise program and pt to continue with HEP throughout the day. Skilled judgment was provided in selection of appropriate interventions. Correct performance of therapeutic exercises was facilitated with verbal and visual cuing. Patient education as noted. Manual Therapy: 1: IASTM using boomerang and tongue depressor Hawk Rug Backing Stenciler tools to L Achilles and peroneal tendon regions with pt in prone lying x 10 minutes. Skilled Intervention: Manual skills to improve joint mobility, ROM, soft tissue restrictions and decrease pain. Utilized anatomy knowledge of the therapist, and assessment of patient's response to intervention. Billing: [facility]: Therapeutic Exercise ([id number]): 1:1 time: 32 minutes (2 units: 23-37 mins) Manual Therapy ([id number]): 1:1 time: 10 minutes (1 unit: 8-22 mins) Total time: 42 minutes Kat Milton PT CNTHERAPY Observed: 08/06/2017 Status: COMPLETED Source: [place] 9:30 AM [facility] [place] REPOSITORY OT/PT/Speech Visit (PTWS) RENAE ELIZONDO ([id number]) 1955 F Date Time Provider Department 08/06/17 9:30 AM KAT MILTON (PT) PTWS Date Time Provider Department Center 08/06/2017 9:30 AM [id number] MILTON (PT) PTWS [facility] Reason for Visit: Physical Therapy [503] Primary Visit Diagnosis:Arthritis, midfoot [M19.079] Allergies As of Date: 08/06/2017 Noted Allergy Reaction ADHESIVE TAPE (ROSINS) 02/13/2006 2 - Rash Comments: tore skin/blisters MORPHINE 02/05/2006 5 - Intolerance Comments: vomiting, shaking. NSAIDS (NON-STEROIDAL ANTI-INFLAM*10/05/2014 11 - Vomiting VASOTEC (ENALAPRIL MALEATE) 09/08/2008 Comments: nausea/doesn't work Date Reviewed: 07/07/2017 Reviewed by: Milana Humphrey Ma - Fully Assessed Prescriptions as of 08/06/2017 Sig: HYDROXYCHLOROQUINE 200 MG TAB* TAKE ONE TABLET BY MOUTH TWIC* LEFLUNOMIDE 20 MG TABLET Take 1 tablet by mouth once d* DICLOFENAC 1 % TOPICAL GEL apply topically 4 grams to fo* CHOLECALCIFEROL (VITAMIN D3) * Take 2,000 Units by mouth onc* PROLIA SUBCUTANEOUS Inject subcutaneously once e* CELECOXIB 200 MG CAPSULE Take 200 mg by mouth as neede* MAGNESIUM OXIDE 500 MG TABLET Taking 250mg. Take two tablet* ACETAMINOPHEN 500 MG TABLET Take 500 mg by mouth every 8 * CPAP CHIN STRAP, USED WITH CPAP DE* FLUTICASONE 50 MCG/ACTUATION * Use 1 [place] in each nostril d* FERROUS SULFATE 325 MG (65 MG* Take 325 mg by mouth three ti* ASCORBIC ACID (VITAMIN C) 500* Take 500 mg by mouth three ti* CPAP AutoPAP 10-20 cmH2O, suitable* CYCLOBENZAPRINE 10 MG TABLET LEVOTHYROXINE 50 MCG TABLET Take 50 mcg by mouth daily be* CLOBETASOL 0.05 % TOPICAL CRE* as directed * GABAPENTIN 300 MG CAPSULE Take 300 mg by mouth three ti* * PROMETHAZINE 25 MG TABLET Take one(1) tablet every four* * ATIVAN 1 MG TABLET takes 1/2 tab as needed * FENTANYL 50 MCG/HR TRANSDERMA* Apply as directed. Change pat* * B COMPLEX 1 TABLET Take one(1) tablet daily. * MULTIVITAMIN,TX-MINERALS TABL* 1 tab daily Progress Notes: Kat Milton, PT 08/06/2017 10:31 AM Signed Episode Visit Count: 8 Therapist That Will Oversee The Plan Of Care: Kat Milton Start of Care Date: 07/14/17 Onset Date: 02/17/17 Patient Identified by Name and Date of : Yes REHABILITATION AND SPORTS THERAPY PHYSICAL THERAPY TREATMENT NOTE ASSESSMENT: Renae Elizondo demonstrated difficulty with CW/CCW movements on the BAPS board and improvements in overall control during BAPS board. Good tolerance to addition of yellow band resisted ankle movements. The patient will continue to benefit from continued skilled physical therapy for progression of AROM and strengthening using BAPS and resistive band per patient tolerance with manual techniques for edema control. PLAN FOR NEXT VISIT: Continue to progress AROM and strengthening to tolerance with manual techniques for edema control. SUBJECTIVE: Pt reports pain in medial arch area and dorsum of foot. States it was a little more sore from being on it a little too much yesterday. She states the movement in her ankle seems to be improving, but she is still limited in the amount of time she tolerates on her feet. Pain Score: 6/10 Pain Location: Foot - Left Description: Aching Frequency: Continuous Post Treatment Pain Score: 5/10 Pain Location: Foot - Left;Heel - Left OBJECTIVE MEASURES WITH LEVEL OF FUNCTION: Ankle Observations L Ankle Presents with: Comments L Atrophy : Purpleish coloring L foot (generalized with increased venous visibility (foot in dependent position). At end of treatment demonstrates improved, pinkish more normal coloration. Foot is warm to touch, but toes are cool. TREATMENT: Therapeutic Exercise: 1: AROM ankle pumps x 20 reps 2: AROM ankle inv/ever x 20 reps 3: AROM ankle inv/ever x 20 reps 4: ankle alphabet x1 5: Seated BAPS PWB left ball 2 A/P, lateral, cw and ccw 1x10. and 1x5. 6: Yellow band left resistive df,pf,inv and evr 1x10. 7: seated left toe raises 1x20 reps 8: seated left ankle heel raises 1x20 reps Skilled Intervention: Patient was educated in proper exercise technique and purpose for exercises. Reviewed and educated patient on additions/changes for home exercise program and pt to continue with HEP throughout the day. Skilled judgment was provided in selection of appropriate interventions. Correct performance of therapeutic exercises was facilitated with verbal and visual cuing. Patient education as noted. Manual Therapy: 1: IASTM using boomerang and tongue depressor Hawk [employer]ing Stenciler tools to L Achilles and peroneal tendon regions with pt in prone lying x 10 minutes. Skilled Intervention: Manual skills to improve joint mobility, ROM, soft tissue restrictions and decrease pain. Utilized anatomy knowledge of the therapist, and assessment of patient's response to intervention. Billing: [facility]: Therapeutic Exercise ([id number]): 1:1 time: 32 minutes (2 units: 23-37 mins) Manual Therapy ([id number]): 1:1 time: 10 minutes (1 unit: 8-22 mins) Total time: 42 minutes Kat Milton PT PROGRESS Observed: 08/04/2017 Status: COMPLETED Source: [place] 10:22 AM [facility] [place] REPOSITORY O ID: [id number] Author: Kat (Pt) Yoan Service: (none) Author Type: Physical Therapist Type: Progress Notes Filed: 08/04/2017 7:09 PM Note Text: Episode Visit Count: 7 Therapist That Will Oversee The Plan Of Care: Kat Milton Start of Care Date: 07/14/17 Onset Date: 02/17/17 REHABILITATION AND SPORTS THERAPY PHYSICAL THERAPY TREATMENT NOTE ASSESSMENT: Renae Elizondo demonstrated difficulty with walking with boot on left with pain persisting. She fell over the weekend when outside and lost her balance to the right. No increase in left foot pain with this incident. Left ankle remains very swollen. The patient will continue to benefit from continued skilled physical therapy for progression of AROM and strengthening using BAPS and resistive band per patient tolerance. PLAN FOR NEXT VISIT: Monitor response to addition of light resistive Rep band and seated BAPS with increase reps. and continue to tolerance. SUBJECTIVE: Patient reports she fell outside as she lost balance to the right. She reports the boot was on and she scraped her right elbow and hurt her pride. Pain Score: 7/10 Pain Location: Foot - Left;Heel - Left Description: Aching;Sharp (sharp at times) Frequency: Continuous Post Treatment Pain Score: 8/10 Pain Location: Foot - Left;Heel - Left Post Treatment Pain Description: Aching OBJECTIVE MEASURES WITH LEVEL OF FUNCTION: Left ankle very edematous around malleoli lateral > medial. TREATMENT: Therapeutic Exercise: 1: AROM ankle pumps x 20 reps 2: AROM ankle inv/ever x 20 reps 3: AROM ankle circles x 20 CW and CCW 4: ankle alphabet x1 5: seated left toe raises 1x20 reps 6: seated left ankle heel raises 1x20 reps 7: Seated BAPS PWB left ball 2 A/P, lateral, cw and ccw 1x10. and 1x5. 8: Yellow band left resistive df,pf,inv and evr 1x10. Skilled Intervention: Patient was educated in proper exercise technique and purpose for exercises. Skilled judgment was provided in selection of appropriate interventions. Correct performance of therapeutic exercises was facilitated with verbal cuing. Manual Therapy: 1: IASTM using scanner and tongue depressor Hawk Rug Backing Stenciler tools to L Achilles and peroneal tendon regions with pt in prone lying. x 10 minutes. Skilled Intervention: Manual skills to improve joint mobility, ROM, and decrease pain. Utilized anatomy knowledge of the therapist, and assessment of patient's response to intervention. Billing: [facility]: Therapeutic Exercise ([id number]): 1:1 time: 30 minutes (2 units: 23-37 mins) Manual Therapy ([id number]): 1:1 time: 10 minutes (1 unit: 8-22 mins) Total time: 40 minutes Rita Sun PT-[place] Milton PT CNTHERAPY Observed: 08/04/2017 Status: COMPLETED Source: [place] 9:15 AM [facility] [place] REPOSITORY OT/PT/Speech Visit (PTWS) RENAE ELIZONDO ([id number]) 1955 F Date Time Provider Department 08/04/17 9:15 AM RITA SUN (SAMPLE SUPERVISOR) PTWS Date Time Provider Department Center 08/04/2017 9:15 AM [id number], NANCY (SAMPLE SUPERVISOR) PTALEXEY [facility] Reason for Visit: Physical Therapy [503] Primary Visit Diagnosis:Arthritis, midfoot [M19.079] Allergies As of Date: 08/04/2017 Noted Allergy Reaction ADHESIVE TAPE (ROSINS) 02/13/2006 2 - Rash Comments: tore skin/blisters MORPHINE 02/05/2006 5 - Intolerance Comments: vomiting, shaking. NSAIDS (NON-STEROIDAL ANTI-INFLAM*10/05/2014 11 - Vomiting VASOTEC (ENALAPRIL MALEATE) 09/08/2008 Comments: nausea/doesn't work Date Reviewed: 07/07/2017 Reviewed by: Milana Humphrey Ma - Fully Assessed Prescriptions as of 08/04/2017 Sig: HYDROXYCHLOROQUINE 200 MG TAB* TAKE ONE TABLET BY MOUTH TWIC* LEFLUNOMIDE 20 MG TABLET Take 1 tablet by mouth once d* DICLOFENAC 1 % TOPICAL GEL apply topically 4 grams to fo* CHOLECALCIFEROL (VITAMIN D3) * Take 2,000 Units by mouth onc* PROLIA SUBCUTANEOUS Inject subcutaneously once e* CELECOXIB 200 MG CAPSULE Take 200 mg by mouth as neede* MAGNESIUM OXIDE 500 MG TABLET Taking 250mg. Take two tablet* ACETAMINOPHEN 500 MG TABLET Take 500 mg by mouth every 8 * CPAP CHIN STRAP, USED WITH CPAP DE* FLUTICASONE 50 MCG/ACTUATION * Use 1 [place] in each nostril d* FERROUS SULFATE 325 MG (65 MG* Take 325 mg by mouth three ti* ASCORBIC ACID (VITAMIN C) 500* Take 500 mg by mouth three ti* CPAP AutoPAP 10-20 cmH2O, suitable* CYCLOBENZAPRINE 10 MG TABLET LEVOTHYROXINE 50 MCG TABLET Take 50 mcg by mouth daily be* CLOBETASOL 0.05 % TOPICAL CRE* as directed * GABAPENTIN 300 MG CAPSULE Take 300 mg by mouth three ti* * PROMETHAZINE 25 MG TABLET Take one(1) tablet every four* * ATIVAN 1 MG TABLET takes 1/2 tab as needed * FENTANYL 50 MCG/HR TRANSDERMA* Apply as directed. Change pat* * B COMPLEX 1 TABLET Take one(1) tablet daily. * MULTIVITAMIN,TX-MINERALS TABL* 1 tab daily Progress Notes: Kat Milton, PT 08/04/2017 7:09 PM Signed Episode Visit Count: 7 Therapist That Will Oversee The Plan Of Care: Kat Milton Start of Care Date: 07/14/17 Onset Date: 02/17/17 REHABILITATION AND SPORTS THERAPY PHYSICAL THERAPY TREATMENT NOTE ASSESSMENT: Renae Elizondo demonstrated difficulty with walking with boot on left with pain persisting. She fell over the weekend when outside and lost her balance to the right. No increase in left foot pain with this incident. Left ankle remains very swollen. The patient will continue to benefit from continued skilled physical therapy for progression of AROM and strengthening using BAPS and resistive band per patient tolerance. PLAN FOR NEXT VISIT: Monitor response to addition of light resistive Rep band and seated BAPS with increase reps. and continue to tolerance. SUBJECTIVE: Patient reports she fell outside as she lost balance to the right. She reports the boot was on and she scraped her right elbow and hurt her pride. Pain Score: 7/10 Pain Location: Foot - Left;Heel - Left Description: Aching;Sharp (sharp at times) Frequency: Continuous Post Treatment Pain Score: 8/10 Pain Location: Foot - Left;Heel - Left Post Treatment Pain Description: Aching OBJECTIVE MEASURES WITH LEVEL OF FUNCTION: Left ankle very edematous around malleoli lateral > medial. TREATMENT: Therapeutic Exercise: 1: AROM ankle pumps x 20 reps 2: AROM ankle inv/ever x 20 reps 3: AROM ankle circles x 20 CW and CCW 4: ankle alphabet x1 5: seated left toe raises 1x20 reps 6: seated left ankle heel raises 1x20 reps 7: Seated BAPS PWB left ball 2 A/P, lateral, cw and ccw 1x10. and 1x5. 8: Yellow band left resistive df,pf,inv and evr 1x10. Skilled Intervention: Patient was educated in proper exercise technique and purpose for exercises. Skilled judgment was provided in selection of appropriate interventions. Correct performance of therapeutic exercises was facilitated with verbal cuing. Manual Therapy: 1: IASTM using scanner and tongue depressor Hawk Rug Backing Stenciler tools to L Achilles and peroneal tendon regions with pt in prone lying. x 10 minutes. Skilled Intervention: Manual skills to improve joint mobility, ROM, and decrease pain. Utilized anatomy knowledge of the therapist, and assessment of patient's response to intervention. Billing: [facility]: Therapeutic Exercise ([id number]): 1:1 time: 30 minutes (2 units: 23-37 mins) Manual Therapy ([id number]): 1:1 time: 10 minutes (1 unit: 8-22 mins) Total time: 40 minutes Rita Sun, PT-[place] Milton PT Previous Version Follow-up and Disposition History Recorded PROGRESS Observed: 08/01/2017 Status: COMPLETED Source: [place] 1:05 PM [facility] REPOSITORY HNO ID: [id number] Author: Kat (Pt) Yoan Service: (none) Author Type: Physical Therapist Type: Progress Notes Filed: 08/01/2017 2:02 PM Note Text: Episode Visit Count: 6 Therapist That Will Oversee The Plan Of Care: Kat Milton Start of Care Date: 07/14/17 Onset Date: 02/17/17 Patient Identified by Name and Date of : Yes REHABILITATION AND SPORTS THERAPY PHYSICAL THERAPY TREATMENT NOTE ASSESSMENT: Renae Yaz Elizondo demonstrated improvements in tolerance to increased exercise today. The patient will continue to benefit from continued skilled physical therapy for L ankle AROM, strength and gait. PLAN FOR NEXT VISIT: Assess response to addition of IASTM. Continue with strengthening and ROM exercises progressing to partial wt. bearing as tolerated. SUBJECTIVE: Pt reporting increased pain in arch of foot and heel. Mostly with initial stance. Pain Score: 8/10 Pain Location: Foot - Left;Head - Left Description: Aching;Sharp Post Treatment Pain Score: 7/10 Pain Location: Foot - Left;Ankle - Left OBJECTIVE MEASURES WITH LEVEL OF FUNCTION: LE AROM L Ankle Dorsiflexion: 3 Degrees L Ankle Plantar Flexion: 37 Degrees L Ankle Inversion: 20 L Ankle Eversion: 10 TREATMENT: Therapeutic Exercise: 1: AROM ankle pumps x 20 reps 2: AROM ankle inv/ever x 20 reps 3: AROM ankle circles x 20 CW and CCW 4: ankle alphabet x1 5: seated left toe raises 1x20 reps 6: seated left ankle heel raises 1x20 reps 7: Seated BAPS ball 2 A/P, lateral 2 x 5 each. 8: Seated BAPS board ball 2, CCW and CW x 5 reps each Skilled Intervention: Patient was educated in proper exercise technique and purpose for exercises. Reviewed and educated patient on additions/changes for home exercise program and pt is to continue current HEP. Skilled judgment was provided in selection of appropriate interventions. Correct performance of therapeutic exercises was facilitated with verbal and visual cuing. Patient education as noted. Manual Therapy: 1: IASTM using boomerang and tongue depressor Hawk Rug Backing Stenciler tools to L Achilles and peroneal tendon regions with pt in prone lying. Skilled Intervention: Manual skills to improve joint mobility, ROM, and decrease pain. Utilized anatomy knowledge of the therapist, and assessment of patient's response to intervention. Billing: [facility]: Therapeutic Exercise ([id number]): 1:1 time: 32 minutes (2 units: 23-37 mins) Manual Therapy ([id number]): 1:1 time: 10 minutes (1 unit: 8-22 mins) Total time: 42 minutes Kat Milton PT CNTHERAPY Observed: 08/01/2017 Status: COMPLETED Source: [place] 1:00 PM [facility] [place] REPOSITORY OT/PT/Speech Visit (PTWS) RENAE ELIZONDO ([id number]) 1955 F Date Time Provider Department 08/01/17 1:00 PM KAT MILTON (PT) PTWS Date Time Provider Department Center 08/01/2017 1:00 PM [id number] MILTON (PT) PTWS [facility] Reason for Visit: Physical Therapy [503] Primary Visit Diagnosis:Arthritis, midfoot [M19.079] Allergies As of Date: 08/01/2017 Noted Allergy Reaction ADHESIVE TAPE (ROSINS) 02/13/2006 2 - Rash Comments: tore skin/blisters MORPHINE 02/05/2006 5 - Intolerance Comments: vomiting, shaking. NSAIDS (NON-STEROIDAL ANTI-INFLAM*10/05/2014 11 - Vomiting VASOTEC (ENALAPRIL MALEATE) 09/08/2008 Comments: nausea/doesn't work Date Reviewed: 07/07/2017 Reviewed by: Milana Humphrey Ma - Fully Assessed Prescriptions as of 08/01/2017 Sig: HYDROXYCHLOROQUINE 200 MG TAB* TAKE ONE TABLET BY MOUTH TWIC* LEFLUNOMIDE 20 MG TABLET Take 1 tablet by mouth once d* DICLOFENAC 1 % TOPICAL GEL apply topically 4 grams to fo* CHOLECALCIFEROL (VITAMIN D3) * Take 2,000 Units by mouth onc* PROLIA SUBCUTANEOUS Inject subcutaneously once e* CELECOXIB 200 MG CAPSULE Take 200 mg by mouth as neede* MAGNESIUM OXIDE 500 MG TABLET Taking 250mg. Take two tablet* ACETAMINOPHEN 500 MG TABLET Take 500 mg by mouth every 8 * CPAP CHIN STRAP, USED WITH CPAP DE* FLUTICASONE 50 MCG/ACTUATION * Use 1 [place] in each nostril d* FERROUS SULFATE 325 MG (65 MG* Take 325 mg by mouth three ti* ASCORBIC ACID (VITAMIN C) 500* Take 500 mg by mouth three ti* CPAP AutoPAP 10-20 cmH2O, suitable* CYCLOBENZAPRINE 10 MG TABLET LEVOTHYROXINE 50 MCG TABLET Take 50 mcg by mouth daily be* CLOBETASOL 0.05 % TOPICAL CRE* as directed * GABAPENTIN 300 MG CAPSULE Take 300 mg by mouth three ti* * PROMETHAZINE 25 MG TABLET Take one(1) tablet every four* * ATIVAN 1 MG TABLET takes 1/2 tab as needed * FENTANYL 50 MCG/HR TRANSDERMA* Apply as directed. Change pat* * B COMPLEX 1 TABLET Take one(1) tablet daily. * MULTIVITAMIN,TX-MINERALS TABL* 1 tab daily Progress Notes: Kat Milton, PT 08/01/2017 2:02 PM Signed Episode Visit Count: 6 Therapist That Will Oversee The Plan Of Care: Kat Milton Start of Care Date: 07/14/17 Onset Date: 02/17/17 Patient Identified by Name and Date of : Yes REHABILITATION AND SPORTS THERAPY PHYSICAL THERAPY TREATMENT NOTE ASSESSMENT: Renae Elizondo demonstrated improvements in tolerance to increased exercise today. The patient will continue to benefit from continued skilled physical therapy for L ankle AROM, strength and gait. PLAN FOR NEXT VISIT: Assess response to addition of IASTM. Continue with strengthening and ROM exercises progressing to partial wt. bearing as tolerated. SUBJECTIVE: Pt reporting increased pain in arch of foot and heel. Mostly with initial stance. Pain Score: 8/10 Pain Location: Foot - Left;Head - Left Description: Aching;Sharp Post Treatment Pain Score: 7/10 Pain Location: Foot - Left;Ankle - Left OBJECTIVE MEASURES WITH LEVEL OF FUNCTION: LE AROM L Ankle Dorsiflexion: 3 Degrees L Ankle Plantar Flexion: 37 Degrees L Ankle Inversion: 20 L Ankle Eversion: 10 TREATMENT: Therapeutic Exercise: 1: AROM ankle pumps x 20 reps 2: AROM ankle inv/ever x 20 reps 3: AROM ankle circles x 20 CW and CCW 4: ankle alphabet x1 5: seated left toe raises 1x20 reps 6: seated left ankle heel raises 1x20 reps 7: Seated BAPS ball 2 A/P, lateral 2 x 5 each. 8: Seated BAPS board ball 2, CCW and CW x 5 reps each Skilled Intervention: Patient was educated in proper exercise technique and purpose for exercises. Reviewed and educated patient on additions/changes for home exercise program and pt is to continue current HEP. Skilled judgment was provided in selection of appropriate interventions. Correct performance of therapeutic exercises was facilitated with verbal and visual cuing. Patient education as noted. Manual Therapy: 1: IASTM using boomerang and tongue depressor Hawk [employer] Backing Stenciler tools to L Achilles and peroneal tendon regions with pt in prone lying. Skilled Intervention: Manual skills to improve joint mobility, ROM, and decrease pain. Utilized anatomy knowledge of the therapist, and assessment of patient's response to intervention. Billing: [facility]: Therapeutic Exercise ([id number]): 1:1 time: 32 minutes (2 units: 23-37 mins) Manual Therapy ([id number]): 1:1 time: 10 minutes (1 unit: 8-22 mins) Total time: 42 minutes Kat Milton PT T4 TOTAL, THYROXIN Collected: 08/01/2017 Status: F Source: [place] 9:59 AM [facility] REPOSITORY TYPE CODE TESTS RESULT OUT OF RANGE REFERENCE UNITS LAB L501.9310 4.8-13.9 ug/dL T4 Normal THYROXIN 9.8 Performed By: #### L501.9310, L501.9520 #### [facility] [address] [place], [address] THYROID STIM HORMONE Collected: 08/01/2017 Status: F Source: [place] (TSH) 9:59 AM [facility] REPOSITORY TYPE CODE TESTS RESULT OUT OF RANGE REFERENCE UNITS LAB L501.9520 0.358-3.74 uIU/mL Normal TSH 3.59 Performed By: #### L501.9310, L501.9520 #### [facility] [address], [address] PROGRESS Observed: 07/30/2017 Status: COMPLETED Source: [place] 9:38 AM [facility] REPOSITORY HNO ID: [id number] Author: Kat (Pt) Yoan Service: (none) Author Type: Physical Therapist Type: Progress Notes Filed: 07/30/2017 10:29 AM Note Text: Episode Visit Count: 5 Therapist That Will Oversee The Plan Of Care: Kat Milton Start of Care Date: 07/14/17 Onset Date: 02/17/17 Patient Identified by Name and Date of : Yes REHABILITATION AND SPORTS THERAPY PHYSICAL THERAPY TREATMENT NOTE ASSESSMENT: Renae Elizondo demonstrated difficulty with increased soreness and stiffness today. Kept BAPS board activity in seated position d/t this. The patient will continue to benefit from continued skilled physical therapy for edema control, strengthening, ROM and gait. PLAN FOR NEXT VISIT: Continue with strengthening and ROM exercises progressing to partial wt. bearing as tolerated. May add IASTM for L ankle/achilles area next visit. SUBJECTIVE: Pt states everything is more swollen today with the increased heat and her hands and ankle feel stiff. She reports walking outdoors Friday and fell. She denies specific injury, Just sore. She did have her walker with her when it happened. Pain Score: 9/10 Pain Location: Foot - Left;Ankle - Left Post Treatment Pain Score: 9/10 Pain Location: Foot - Left;Ankle - Left Post Treatment Pain Description: (more painful with weight bearing) OBJECTIVE MEASURES WITH LEVEL OF FUNCTION: Pt with slower movements today and increased stiffness/soreness from increased heat (causing LE swelling) and her fall a couple days ago. TREATMENT: Therapeutic Exercise: 1: AROM ankle pumps x 20 reps 2: AROM ankle inv/ever x 20 reps 3: AROM ankle circles x 20 CW and CCW 4: ankle alphabet x1 5: seated left toe raises 1x20 reps 6: seated left ankle heel raises 1x20 reps 7: Seated BAPS ball 2 A/P, lateral 2 x 5 each. 8: Seated BAPS board ball 2, CCW x 5 reps Skilled Intervention: Patient was educated in proper exercise technique and purpose for exercises. Reviewed and educated patient on additions/changes for home exercise program and pt to continue with current HEP. Skilled judgment was provided in selection of appropriate interventions. Correct performance of therapeutic exercises was facilitated with verbal and visual cuing. Patient education as noted. Manual Therapy: 1: Left LE elevated on wedge bolster with retrograde massage x 10 mintues with pressure to patient tolerance. Skilled Intervention: Manual skills to improve joint mobility, ROM, and decrease pain. Utilized anatomy knowledge of the therapist, and assessment of patient's response to intervention. Billing: [facility]: Therapeutic Exercise ([id number]): 1:1 time: 29 minutes (2 units: 23-37 mins) Manual Therapy ([id number]): 1:1 time: 13 minutes (1 unit: 8-22 mins) Total time: 42 minutes Kat Milton PT CNTHERAPY Observed: 07/30/2017 Status: COMPLETED Source: [place] 9:30 AM [facility] [place] REPOSITORY OT/PT/Speech Visit (PTWS) RENAE ELIZONDO ([id number]) 1955 F Date Time Provider Department 07/30/17 9:30 AM KAT MILTON (PT) PTWS Date Time Provider Department Center 07/30/2017 9:30 AM [id number] MILTON (PT) PTWS [facility] Reason for Visit: Physical Therapy [503] Primary Visit Diagnosis:Arthritis, midfoot [M19.079] Allergies As of Date: 07/30/2017 Noted Allergy Reaction ADHESIVE TAPE (ROSINS) 02/13/2006 2 - Rash Comments: tore skin/blisters MORPHINE 02/05/2006 5 - Intolerance Comments: vomiting, shaking. NSAIDS (NON-STEROIDAL ANTI-INFLAM*10/05/2014 11 - Vomiting VASOTEC (ENALAPRIL MALEATE) 09/08/2008 Comments: nausea/doesn't work Date Reviewed: 07/07/2017 Reviewed by: Milana Humphrey Ma - Fully Assessed Prescriptions as of 07/30/2017 Sig: LEFLUNOMIDE 20 MG TABLET Take 1 tablet by mouth once d* HYDROXYCHLOROQUINE 200 MG TAB* Take 1 tablet by mouth twice * DICLOFENAC 1 % TOPICAL GEL apply topically 4 grams to fo* CHOLECALCIFEROL (VITAMIN D3) * Take 2,000 Units by mouth onc* PROLIA SUBCUTANEOUS Inject subcutaneously once e* CELECOXIB 200 MG CAPSULE Take 200 mg by mouth as neede* MAGNESIUM OXIDE 500 MG TABLET Taking 250mg. Take two tablet* ACETAMINOPHEN 500 MG TABLET Take 500 mg by mouth every 8 * CPAP CHIN STRAP, USED WITH CPAP DE* FLUTICASONE 50 MCG/ACTUATION * Use 1 [place] in each nostril d* FERROUS SULFATE 325 MG (65 MG* Take 325 mg by mouth three ti* ASCORBIC ACID (VITAMIN C) 500* Take 500 mg by mouth three ti* CPAP AutoPAP 10-20 cmH2O, suitable* CYCLOBENZAPRINE 10 MG TABLET LEVOTHYROXINE 50 MCG TABLET Take 50 mcg by mouth daily be* CLOBETASOL 0.05 % TOPICAL CRE* as directed * GABAPENTIN 300 MG CAPSULE Take 300 mg by mouth three ti* * PROMETHAZINE 25 MG TABLET Take one(1) tablet every four* * ATIVAN 1 MG TABLET takes 1/2 tab as needed * FENTANYL 50 MCG/HR TRANSDERMA* Apply as directed. Change pat* * B COMPLEX 1 TABLET Take one(1) tablet daily. * MULTIVITAMIN,TX-MINERALS TABL* 1 tab daily Progress Notes: Kat Milton PT 07/30/2017 10:29 AM Signed Episode Visit Count: 5 Therapist That Will Oversee The Plan Of Care: Kat Milton Start of Care Date: 07/14/17 Onset Date: 02/17/17 Patient Identified by Name and Date of : Yes REHABILITATION AND SPORTS THERAPY PHYSICAL THERAPY TREATMENT NOTE ASSESSMENT: Renae Elizondo demonstrated difficulty with increased soreness and stiffness today. Kept BAPS board activity in seated position d/t this. The patient will continue to benefit from continued skilled physical therapy for edema control, strengthening, ROM and gait. PLAN FOR NEXT VISIT: Continue with strengthening and ROM exercises progressing to partial wt. bearing as tolerated. May add IASTM for L ankle/achilles area next visit. SUBJECTIVE: Pt states everything is more swollen today with the increased heat and her hands and ankle feel stiff. She reports walking outdoors Friday and fell. She denies specific injury, Just sore. She did have her walker with her when it happened. Pain Score: 9/10 Pain Location: Foot - Left;Ankle - Left Post Treatment Pain Score: 9/10 Pain Location: Foot - Left;Ankle - Left Post Treatment Pain Description: (more painful with weight bearing) OBJECTIVE MEASURES WITH LEVEL OF FUNCTION: Pt with slower movements today and increased stiffness/soreness from increased heat (causing LE swelling) and her fall a couple days ago. TREATMENT: Therapeutic Exercise: 1: AROM ankle pumps x 20 reps 2: AROM ankle inv/ever x 20 reps 3: AROM ankle circles x 20 CW and CCW 4: ankle alphabet x1 5: seated left toe raises 1x20 reps 6: seated left ankle heel raises 1x20 reps 7: Seated BAPS ball 2 A/P, lateral 2 x 5 each. 8: Seated BAPS board ball 2, CCW x 5 reps Skilled Intervention: Patient was educated in proper exercise technique and purpose for exercises. Reviewed and educated patient on additions/changes for home exercise program and pt to continue with current HEP. Skilled judgment was provided in selection of appropriate interventions. Correct performance of therapeutic exercises was facilitated with verbal and visual cuing. Patient education as noted. Manual Therapy: 1: Left LE elevated on wedge bolster with retrograde massage x 10 mintues with pressure to patient tolerance. Skilled Intervention: Manual skills to improve joint mobility, ROM, and decrease pain. Utilized anatomy knowledge of the therapist, and assessment of patient's response to intervention. Billing: [facility]: Therapeutic Exercise ([id number]): 1:1 time: 29 minutes (2 units: 23-37 mins) Manual Therapy ([id number]): 1:1 time: 13 minutes (1 unit: 8-22 mins) Total time: 42 minutes Kat Milton PT UNILAT LT SCRN Observed: 07/24/2017 Status: F Source: [place] W/CAD 8:05 AM [facility] REPOSITORY [facility] Imaging Services [address] [address] UNILAT LT SCRN W/CAD MR#: [id number] Acct: [id number] Name: RENAE ELIZONDO Rep #: [id number] : 1955 F 62 From: Luis Miguel Gustafson MD PCP: Elisa Baxter MD Status: REG CLI Study: UNILAT LT SCRN W/CAD Date of Exam: 07/24/17 Exam# [id number] Ordering Dr: Elisa Baxter MD MAMMOGRAPHY - UNILATERAL SCREENING: LEFT BREAST REASON FOR EXAM: Female, 62 years old. Routine annual screening examination (unilateral). PERTINENT HISTORY: Personal history of breast cancer. Prior right mastectomy and radiation treatment. TECHNIQUE: Digital unilateral breast aysha (3D mammographic acquisition) in the CC and MLO projections. 2-D mediolateral oblique (MLO) and craniocaudad (CC) views of both breasts were obtained. CAD: Full Field Digital Mammography with Computer Added Detection was performed. COMPARISON: Comparison is made with prior study dated May 15, 2016 and May 15, 2015. FINDINGS: Breast Composition: There are scattered areas of fibroglandular density. There are no dominant masses or suspicious calcifications. No other significant abnormalities are identified. There has been no significant change since the prior study. BI/UNILHOLLIS LT SCRN W/CAD IMPRESSION: Stable unilateral screening mammogram. Yearly follow-up mammogram recommended. (A) ASSESSMENT CATEGORY: BIRADS Category 1: Negative. A letter regarding these results will be sent to the patient by the facility within 30 days. Approximately 10% of breast cancers are not detected by mammography. A normal mammogram should not delay biopsy of a clinically suspicious abnormality. [id number] Electronically Signed: Luis Miguel Gustafson MD at 9:26 EDT Tel [phone], Service support , CC: Elisa Baxter MD 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: Signed PROGRESS Observed: 07/23/2017 Status: COMPLETED Source: [place] 8:05 AM [facility] [place] REPOSITORY HNO ID: [id number] Author: Kat (Pt) Yoan Service: (none) Author Type: Physical Therapist Type: Progress Notes Filed: 07/23/2017 10:06 AM Note Text: Episode Visit Count: 4 Therapist That Will Oversee The Plan Of Care: Kat Milton Start of Care Date: 07/14/17 Onset Date: 02/17/17 Patient Identified by Name and Date of : Yes REHABILITATION AND SPORTS THERAPY PHYSICAL THERAPY TREATMENT NOTE ASSESSMENT: Renae Elizondo demonstrated difficulty with weight bearing and when using straight cane and improvements in increased sets of BAPS exercise and form/technique of gait with straight cane. The patient will continue to benefit from continued skilled physical therapy for progression of exercise and strengthening, gait and manual therapy for edema reduction. PLAN FOR NEXT VISIT: Continue iwth non- or partial weight bearing exercises. SUBJECTIVE: Pt reports her ankle was a little bit swollen and sore yesterday. She notes it didn't feel too bad after therapy Friday, but Friday then it was more swollen and sore. She states she feels she may have done too much and then did have it in a dependent position for longer periods of time. Pain Score: 8/10 (7-8/10) Pain Location: Foot - Left;Ankle - Left Description: Dull;Sharp Frequency: Continuous (constant dull/ache; intermittant sharp) Post Treatment Pain Score: 8/10 Pain Location: Foot - Left;Ankle - Left Post Treatment Pain Description: Dull (medial instep stingingafter gait) OBJECTIVE MEASURES WITH LEVEL OF FUNCTION: Posture / Alignment LE Observations: 2 above mall: L 22.5; B mall.: L 26.5; heel: L 34.5; midfoot: L 26; MTP: L 25.5. TREATMENT: Therapeutic Exercise: 1: AROM ankle pumps x 20 reps 2: AROM ankle inv/ever x 20 reps 3: AROM ankle circles x 20 CW and CCW 4: ankle alphabet x1 5: seated left toe raises 1x20 reps 6: seated left ankle heel raises 1x20 reps 7: Seated BAPS ball 2 A/P, lateral 2 x 5 each. Skilled Intervention: Patient was educated in proper exercise technique and purpose for exercises. Reviewed and educated patient on additions/changes for home exercise program pt to continue with current HEP and elevating foot short periods throughout the day to assist with edema management. Skilled judgment was provided in selection of appropriate interventions. Correct performance of therapeutic exercises was facilitated with verbal and visual cuing. Patient education as noted. Manual Therapy: 1: Left LE elevated on wedge bolster with retrograde massage x 8 mintues with pressure to patient tolerance. Skilled Intervention: Manual skills to improve joint mobility, ROM, and decrease pain. Utilized anatomy knowledge of the therapist, and assessment of patient's response to intervention. Billing: [facility]: Therapeutic Exercise ([id number]): 1:1 time: 22 minutes (1 unit: 8-22 mins) Manual Therapy ([id number]): 1:1 time: 8 minutes (1 unit: 8-22 mins) Gait Training (20960): 1:1 time: 15 minutes (1 unit: 8-22 mins) Total time: 45 minutes Kat Milton PT CNTHERAPY Observed: 07/23/2017 Status: COMPLETED Source: [place] 8:00 AM [facility] REPOSITORY OT/PT/Speech Visit (PTWS) RENAE ELIZONDO ([id number]) 1955 F Date Time Provider Department 07/23/17 8:00 AM KAT MILTONPT) PTWS Date Time Provider Department Center 07/23/2017 8:00 AM [id number] MILTON (PT) PTWS [facility] Reason for Visit: Physical Therapy [503] Primary Visit Diagnosis:Arthritis, midfoot [M19.079] Allergies As of Date: 07/23/2017 Noted Allergy Reaction ADHESIVE TAPE (ROSINS) 02/13/2006 2 - Rash Comments: tore skin/blisters MORPHINE 02/05/2006 5 - Intolerance Comments: vomiting, shaking. NSAIDS (NON-STEROIDAL ANTI-INFLAM*10/05/2014 11 - Vomiting VASOTEC (ENALAPRIL MALEATE) 09/08/2008 Comments: nausea/doesn't work Date Reviewed: 07/07/2017 Reviewed by: Milana Humphrey Ma - Fully Assessed Prescriptions as of 07/23/2017 Sig: LEFLUNOMIDE 20 MG TABLET Take 1 tablet by mouth once d* HYDROXYCHLOROQUINE 200 MG TAB* Take 1 tablet by mouth twice * DICLOFENAC 1 % TOPICAL GEL apply topically 4 grams to fo* CHOLECALCIFEROL (VITAMIN D3) * Take 2,000 Units by mouth onc* PROLIA SUBCUTANEOUS Inject subcutaneously once e* CELECOXIB 200 MG CAPSULE Take 200 mg by mouth as neede* MAGNESIUM OXIDE 500 MG TABLET Taking 250mg. Take two tablet* ACETAMINOPHEN 500 MG TABLET Take 500 mg by mouth every 8 * CPAP CHIN STRAP, USED WITH CPAP DE* FLUTICASONE 50 MCG/ACTUATION * Use 1 [place] in each nostril d* FERROUS SULFATE 325 MG (65 MG* Take 325 mg by mouth three ti* ASCORBIC ACID (VITAMIN C) 500* Take 500 mg by mouth three ti* CPAP AutoPAP 10-20 cmH2O, suitable* CYCLOBENZAPRINE 10 MG TABLET LEVOTHYROXINE 50 MCG TABLET Take 50 mcg by mouth daily be* CLOBETASOL 0.05 % TOPICAL CRE* as directed * GABAPENTIN 300 MG CAPSULE Take 300 mg by mouth three ti* * PROMETHAZINE 25 MG TABLET Take one(1) tablet every four* * ATIVAN 1 MG TABLET takes 1/2 tab as needed * FENTANYL 50 MCG/HR TRANSDERMA* Apply as directed. Change pat* * B COMPLEX 1 TABLET Take one(1) tablet daily. * MULTIVITAMIN,TX-MINERALS TABL* 1 tab daily Progress Notes: Kat Milton PT 07/23/2017 10:06 AM Signed Episode Visit Count: 4 Therapist That Will Oversee The Plan Of Care: Kat Milton Start of Care Date: 07/14/17 Onset Date: 02/17/17 Patient Identified by Name and Date of : Yes REHABILITATION AND SPORTS THERAPY PHYSICAL THERAPY TREATMENT NOTE ASSESSMENT: Renae Elizondo demonstrated difficulty with weight bearing and when using straight cane and improvements in increased sets of BAPS exercise and form/technique of gait with straight cane. The patient will continue to benefit from continued skilled physical therapy for progression of exercise and strengthening, gait and manual therapy for edema reduction. PLAN FOR NEXT VISIT: Continue iwth non- or partial weight bearing exercises. SUBJECTIVE: Pt reports her ankle was a little bit swollen and sore yesterday. She notes it didn't feel too bad after therapy Friday, but Friday then it was more swollen and sore. She states she feels she may have done too much and then did have it in a dependent position for longer periods of time. Pain Score: 8/10 (7-8/10) Pain Location: Foot - Left;Ankle - Left Description: Dull;Sharp Frequency: Continuous (constant dull/ache; intermittant sharp) Post Treatment Pain Score: 8/10 Pain Location: Foot - Left;Ankle - Left Post Treatment Pain Description: Dull (medial instep stingingafter gait) OBJECTIVE MEASURES WITH LEVEL OF FUNCTION: Posture / Alignment LE Observations: 2 above mall: L 22.5; B mall.: L 26.5; heel: L 34.5; midfoot: L 26; MTP: L 25.5. TREATMENT: Therapeutic Exercise: 1: AROM ankle pumps x 20 reps 2: AROM ankle inv/ever x 20 reps 3: AROM ankle circles x 20 CW and CCW 4: ankle alphabet x1 5: seated left toe raises 1x20 reps 6: seated left ankle heel raises 1x20 reps 7: Seated BAPS ball 2 A/P, lateral 2 x 5 each. Skilled Intervention: Patient was educated in proper exercise technique and purpose for exercises. Reviewed and educated patient on additions/changes for home exercise program pt to continue with current HEP and elevating foot short periods throughout the day to assist with edema management. Skilled judgment was provided in selection of appropriate interventions. Correct performance of therapeutic exercises was facilitated with verbal and visual cuing. Patient education as noted. Manual Therapy: 1: Left LE elevated on wedge bolster with retrograde massage x 8 mintues with pressure to patient tolerance. Skilled Intervention: Manual skills to improve joint mobility, ROM, and decrease pain. Utilized anatomy knowledge of the therapist, and assessment of patient's response to intervention. Billing: [facility]: Therapeutic Exercise ([id number]): 1:1 time: 22 minutes (1 unit: 8-22 mins) Manual Therapy ([id number]): 1:1 time: 8 minutes (1 unit: 8-22 mins) Gait Training ([id number]): 1:1 time: 15 minutes (1 unit: 8-22 mins) Total time: 45 minutes Kat Milton PT PROGRESS Observed: 07/21/2017 Status: COMPLETED Source: [place] 11:57 AM [facility] [place] REPOSITORY HNO ID: [id number] Author: Kat (Pt) Yoan Service: (none) Author Type: Physical Therapist Type: Progress Notes Filed: 07/21/2017 3:06 PM Note Text: Episode Visit Count: 3 Therapist That Will Oversee The Plan Of Care: Kat Milton Start of Care Date: 07/14/17 Onset Date: 02/17/17 REHABILITATION AND SPORTS THERAPY PHYSICAL THERAPY TREATMENT NOTE ASSESSMENT: Renae Elizondo demonstrated improvements in reduction of edema left foot. Patient with improved AROM left ankle and toes. Added seated BAPS low repetitions and this challenged patient. Patient is walking at home some with no boot and this possibly will be addressed next visit and patient was asked to bring both tennis shoes to therapy. The patient will continue to benefit from continued skilled physical therapy for progression of exercise , gait and manual therapy for edema reduction. PLAN FOR NEXT VISIT: Monitor response to treatment. Possibly try gait in // bars with shoes on. SUBJECTIVE: Patient reports the lower leg is swollen and still has pain. She reports slight increase pain after last therapy. Pain Score: 6/10 Pain Location: Foot - Left;Ankle - Left Description: Sharp;Stabbing Frequency: Continuous Post Treatment Pain Score: 7/10 Pain Location: Foot - Left;Ankle - Left Post Treatment Pain Description: Aching OBJECTIVE MEASURES WITH LEVEL OF FUNCTION: Visible reduction in edema and improved color left foot. TREATMENT: Therapeutic Exercise: 1: AROM ankle pumps x 20 reps 2: AROM ankle inv/ever x 20 reps 3: AROM ankle circles x 20 CW and CCW 4: ankle alphabet x1 5: seated left toe raises 1x15 reps 6: seated left ankle heel raises 1x15 reps 7: Seated left toe scrunches x 30 reps. 8: *Strap assist left gastroc stretch 3x30 seconds. 9: *Great toe flexion and extension passive stretch 3x10 second hold. 10: Seated BAPS ball 2 A/P, lateral x 5 each. Skilled Intervention: Patient was educated in proper exercise technique and purpose for exercises. Reviewed and educated patient on additions/changes for home exercise program as above (*) Skilled judgment was provided in selection of appropriate interventions. Provided written instruction for home exercise program to facilitate proper performance and compliance. Correct performance of therapeutic exercises was facilitated with verbal and visual cuing. Manual Therapy: 1: Lacrosse ball mobs seated with foot on floor x 2 minutes. 2: Left LE elevated on wedge bolster with retrograde massage x 8 mintues with pressure to patient tolerance. Skilled Intervention: Manual skills to improve joint mobility, ROM, and decrease pain. Utilized anatomy knowledge of the therapist, and assessment of patient's response to intervention. Billing: [facility]: Therapeutic Exercise ([id number]): 1:1 time: 37 minutes (2 units: 23-37 mins) Manual Therapy ([id number]): 1:1 time: 10 minutes (1 unit: 8-22 mins) Total time: 47 minutes HEATHER Jean PT CNTHERAPY Observed: 07/21/2017 Status: COMPLETED Source: [place] 10:00 AM [facility] [place] REPOSITORY OT/PT/Speech Visit (PTWS) RENAE ELIZONDO ([id number]) 1955 F Date Time Provider Department 07/21/17 10:00 AM RITA SUN (BOO) PTWS Date Time Provider Department Center 07/21/2017 10:00 AM [id number], NANCY (BOO) PTWS [facility] Reason for Visit: Physical Therapy [503] Primary Visit Diagnosis:Arthritis, midfoot [M19.079] Allergies As of Date: 07/21/2017 Noted Allergy Reaction ADHESIVE TAPE (ROSINS) 02/13/2006 2 - Rash Comments: tore skin/blisters MORPHINE 02/05/2006 5 - Intolerance Comments: vomiting, shaking. NSAIDS (NON-STEROIDAL ANTI-INFLAM*10/05/2014 11 - Vomiting VASOTEC (ENALAPRIL MALEATE) 09/08/2008 Comments: nausea/doesn't work Date Reviewed: 07/07/2017 Reviewed by: Milana Humphrey Ma - Fully Assessed Prescriptions as of 07/21/2017 Sig: LEFLUNOMIDE 20 MG TABLET Take 1 tablet by mouth once d* HYDROXYCHLOROQUINE 200 MG TAB* Take 1 tablet by mouth twice * DICLOFENAC 1 % TOPICAL GEL apply topically 4 grams to fo* CHOLECALCIFEROL (VITAMIN D3) * Take 2,000 Units by mouth onc* PROLIA SUBCUTANEOUS Inject subcutaneously once e* CELECOXIB 200 MG CAPSULE Take 200 mg by mouth as neede* MAGNESIUM OXIDE 500 MG TABLET Taking 250mg. Take two tablet* ACETAMINOPHEN 500 MG TABLET Take 500 mg by mouth every 8 * CPAP CHIN STRAP, USED WITH CPAP DE* FLUTICASONE 50 MCG/ACTUATION * Use 1 [place] in each nostril d* FERROUS SULFATE 325 MG (65 MG* Take 325 mg by mouth three ti* ASCORBIC ACID (VITAMIN C) 500* Take 500 mg by mouth three ti* CPAP AutoPAP 10-20 cmH2O, suitable* CYCLOBENZAPRINE 10 MG TABLET LEVOTHYROXINE 50 MCG TABLET Take 50 mcg by mouth daily be* CLOBETASOL 0.05 % TOPICAL CRE* as directed * GABAPENTIN 300 MG CAPSULE Take 300 mg by mouth three ti* * PROMETHAZINE 25 MG TABLET Take one(1) tablet every four* * ATIVAN 1 MG TABLET takes 1/2 tab as needed * FENTANYL 50 MCG/HR TRANSDERMA* Apply as directed. Change pat* * B COMPLEX 1 TABLET Take one(1) tablet daily. * MULTIVITAMIN,TX-MINERALS TABL* 1 tab daily Progress Notes: Kat Lemon, PT 07/21/2017 3:06 PM Signed Episode Visit Count: 3 Therapist That Will Oversee The Plan Of Care: Kat Milton Start of Care Date: 07/14/17 Onset Date: 02/17/17 REHABILITATION AND SPORTS THERAPY PHYSICAL THERAPY TREATMENT NOTE ASSESSMENT: Renae Elizondo demonstrated improvements in reduction of edema left foot. Patient with improved AROM left ankle and toes. Added seated BAPS low repetitions and this challenged patient. Patient is walking at home some with no boot and this possibly will be addressed next visit and patient was asked to bring both tennis shoes to therapy. The patient will continue to benefit from continued skilled physical therapy for progression of exercise , gait and manual therapy for edema reduction. PLAN FOR NEXT VISIT: Monitor response to treatment. Possibly try gait in // bars with shoes on. SUBJECTIVE: Patient reports the lower leg is swollen and still has pain. She reports slight increase pain after last therapy. Pain Score: 6/10 Pain Location: Foot - Left;Ankle - Left Description: Sharp;Stabbing Frequency: Continuous Post Treatment Pain Score: 7/10 Pain Location: Foot - Left;Ankle - Left Post Treatment Pain Description: Aching OBJECTIVE MEASURES WITH LEVEL OF FUNCTION: Visible reduction in edema and improved color left foot. TREATMENT: Therapeutic Exercise: 1: AROM ankle pumps x 20 reps 2: AROM ankle inv/ever x 20 reps 3: AROM ankle circles x 20 CW and CCW 4: ankle alphabet x1 5: seated left toe raises 1x15 reps 6: seated left ankle heel raises 1x15 reps 7: Seated left toe scrunches x 30 reps. 8: *Strap assist left gastroc stretch 3x30 seconds. 9: *Great toe flexion and extension passive stretch 3x10 second hold. 10: Seated BAPS ball 2 A/P, lateral x 5 each. Skilled Intervention: Patient was educated in proper exercise technique and purpose for exercises. Reviewed and educated patient on additions/changes for home exercise program as above (*) Skilled judgment was provided in selection of appropriate interventions. Provided written instruction for home exercise program to facilitate proper performance and compliance. Correct performance of therapeutic exercises was facilitated with verbal and visual cuing. Manual Therapy: 1: Lacrosse ball mobs seated with foot on floor x 2 minutes. 2: Left LE elevated on wedge bolster with retrograde massage x 8 mintues with pressure to patient tolerance. Skilled Intervention: Manual skills to improve joint mobility, ROM, and decrease pain. Utilized anatomy knowledge of the therapist, and assessment of patient's response to intervention. Billing: [facility]: Therapeutic Exercise ([id number]): 1:1 time: 37 minutes (2 units: 23-37 mins) Manual Therapy ([id number]): 1:1 time: 10 minutes (1 unit: 8-22 mins) Total time: 47 minutes Rita uSn PT-[place] Milton PT Previous Version Follow-up and Disposition History Recorded CBC Collected: 07/17/2017 Status: F Source: [place] 10:18 AM [facility] [place] REPOSITORY TYPE CODE TESTS RESULT OUT OF REFERENCE UNITS RANGE LAB WBC 3.70-11.00 k/uL Low WBC 3.44 LAB RBC 3.90-5.20 m/uL RBC 3.96 LAB HGB 11.5-15.5 g/dL Hemoglobin 12.4 LAB HCT 36.0-46.0 % Hematocrit 40.7 LAB MCV 80.0-100.0 fL MCV High 102.8 LAB MCH 26.0-34.0 pG MCH 31.3 LAB MCHC 30.5-36.0 g/dL MCHC 30.5 LAB RDWCV 11.5-15.0 % RDW-CV 12.9 LAB PLTCT 150-400 k/uL Platelet Count 196 LAB MPV 9.0-12.7 fL MPV 9.6 LAB ABSNUC <0.01 k/uL Absolute nRBC <0.01 Performed By: #### CBC #### [facility] [id number] [address] [place], [place] [address] PROGRESS Observed: 07/17/2017 Status: COMPLETED Source: [place] 10:03 AM [facility] [place] REPOSITORY HNO ID: [id number] Author: Agnes (Pt) Oni Service: (none) Author Type: Physical Therapist Type: Progress Notes Filed: 07/17/2017 11:43 AM Note Text: Episode Visit Count: 2 Therapist That Will Oversee The Plan Of Care: Kat Milton Start of Care Date: 07/14/17 Onset Date: 02/17/17 Patient Identified by Name and Date of : Yes REHABILITATION AND SPORTS THERAPY PHYSICAL THERAPY TREATMENT NOTE ASSESSMENT: Renae Elizondo demonstrated difficulty with continual edema left foot and intermittent left great toe pain. Patient with improved tolerance to touch left with with less sensitivity to touch. Retrograde massage helped decrease edema. Patient with good form with exercises today. The patient will continue to benefit from continued skilled physical therapy for progression of exercise, gait and edema reduction. PLAN FOR NEXT VISIT: Monitor response to manual techniques, add lacrosse or tennis ball mobs plantar surface of foot and continue with exercises. Possibly add seated BAPS. SUBJECTIVE: Patient reports the left foot is more sore and swollen starting exercise.. She reports she has not been over doing the walking currently. Pain Score: 7/10 Pain Location: Foot - Left;Ankle - Left Description: Aching;Sharp;Other: See comment (sharp at times) Frequency: Continuous Post Treatment Pain Score: 8/10 Pain Location: Toe - Left;Other: See Comment (Great toe) Post Treatment Pain Description: Burning OBJECTIVE MEASURES WITH LEVEL OF FUNCTION: Antalgic gait on level with boot on left foot. TREATMENT: Therapeutic Exercise: 1: AROM ankle pumps x 20 reps 2: AROM ankle inv/ever x 20 reps 3: AROM ankle circles x 20 CW and CCW 4: ankle alphabet x1 5: seated left toe raises 2 x 12 reps 6: seated left ankle heel raises 2 x 12 reps 7: * Seated left toe scrunches 2x30 seconds. 8: Education on elevating left LE above level of heart. 9: Education on use of iced water bottle on plantar surface of foot for short time periods. Skilled Intervention: Patient was educated in proper exercise technique and purpose for exercises. Reviewed and educated patient on additions/changes for home exercise program as above (*) Skilled judgment was provided in selection of appropriate interventions. Provided written instruction for home exercise program to facilitate proper performance and compliance. Correct performance of therapeutic exercises was facilitated with verbal and visual cuing. Education as noted above. Manual Therapy: 1: Desentization techniques left foot and towel rubbing and finger tapping multiple times intermittently during rest periods from exercise. 2: Left LE elevated on wedge bolster with retrograde massage x 8 mintues with pressure to patient tolerance. Skilled Intervention: Manual skills to improve joint mobility, ROM, and decrease pain. Utilized anatomy knowledge of the therapist, and assessment of patient's response to intervention. Billing: [facility]: Therapeutic Exercise ([id number]): 1:1 time: 35 minutes (2 units: 23-37 mins) Manual Therapy ([id number]): 1:1 time: 10 minutes (1 unit: 8-22 mins) Total time: 45 minutes Rita Sun PTRanjit/Agnes Bunn PT CNTHERAPY Observed: 07/17/2017 Status: COMPLETED Source: [place] 8:30 AM [facility] [place] REPOSITORY OT/PT/Speech Visit (PTWS) RENAE ELIZONDO ([id number]) 1955 F Date Time Provider Department 07/17/17 8:30 AM RITA SUN (SAMPLE SUPERVISOR) PTWS Date Time Provider Department Center 07/17/2017 8:30 AM [id number], NANCY (SAMPLE SUPERVISOR) PTWS [facility] Reason for Visit: Physical Therapy [503] Primary Visit Diagnosis:Arthritis, midfoot [M19.079] Allergies As of Date: 07/17/2017 Noted Allergy Reaction ADHESIVE TAPE (ROSINS) 02/13/2006 2 - Rash Comments: tore skin/blisters MORPHINE 02/05/2006 5 - Intolerance Comments: vomiting, shaking. NSAIDS (NON-STEROIDAL ANTI-INFLAM*10/05/2014 11 - Vomiting VASOTEC (ENALAPRIL MALEATE) 09/08/2008 Comments: nausea/doesn't work Date Reviewed: 07/07/2017 Reviewed by: Milana Humphrey Ma - Fully Assessed Prescriptions as of 07/17/2017 Sig: LEFLUNOMIDE 20 MG TABLET Take 1 tablet by mouth once d* HYDROXYCHLOROQUINE 200 MG TAB* Take 1 tablet by mouth twice * DICLOFENAC 1 % TOPICAL GEL apply topically 4 grams to fo* CHOLECALCIFEROL (VITAMIN D3) * Take 2,000 Units by mouth onc* PROLIA SUBCUTANEOUS Inject subcutaneously once e* CELECOXIB 200 MG CAPSULE Take 200 mg by mouth as neede* MAGNESIUM OXIDE 500 MG TABLET Taking 250mg. Take two tablet* ACETAMINOPHEN 500 MG TABLET Take 500 mg by mouth every 8 * CPAP CHIN STRAP, USED WITH CPAP DE* FLUTICASONE 50 MCG/ACTUATION * Use 1 [place] in each nostril d* FERROUS SULFATE 325 MG (65 MG* Take 325 mg by mouth three ti* ASCORBIC ACID (VITAMIN C) 500* Take 500 mg by mouth three ti* CPAP AutoPAP 10-20 cmH2O, suitable* CYCLOBENZAPRINE 10 MG TABLET LEVOTHYROXINE 50 MCG TABLET Take 50 mcg by mouth daily be* CLOBETASOL 0.05 % TOPICAL CRE* as directed * GABAPENTIN 300 MG CAPSULE Take 300 mg by mouth three ti* * PROMETHAZINE 25 MG TABLET Take one(1) tablet every four* * ATIVAN 1 MG TABLET takes 1/2 tab as needed * FENTANYL 50 MCG/HR TRANSDERMA* Apply as directed. Change pat* * B COMPLEX 1 TABLET Take one(1) tablet daily. * MULTIVITAMIN,TX-MINERALS TABL* 1 tab daily Progress Notes: Agnes Bunn, PT 07/17/2017 11:43 AM Signed Episode Visit Count: 2 Therapist That Will Oversee The Plan Of Care: Kat Milton Start of Care Date: 07/14/17 Onset Date: 02/17/17 Patient Identified by Name and Date of : Yes REHABILITATION AND SPORTS THERAPY PHYSICAL THERAPY TREATMENT NOTE ASSESSMENT: Renae Yaz Elizondo demonstrated difficulty with continual edema left foot and intermittent left great toe pain. Patient with improved tolerance to touch left with with less sensitivity to touch. Retrograde massage helped decrease edema. Patient with good form with exercises today. The patient will continue to benefit from continued skilled physical therapy for progression of exercise, gait and edema reduction. PLAN FOR NEXT VISIT: Monitor response to manual techniques, add lacrosse or tennis ball mobs plantar surface of foot and continue with exercises. Possibly add seated BAPS. SUBJECTIVE: Patient reports the left foot is more sore and swollen starting exercise.. She reports she has not been over doing the walking currently. Pain Score: 7/10 Pain Location: Foot - Left;Ankle - Left Description: Aching;Sharp;Other: See comment (sharp at times) Frequency: Continuous Post Treatment Pain Score: 8/10 Pain Location: Toe - Left;Other: See Comment (Great toe) Post Treatment Pain Description: Burning OBJECTIVE MEASURES WITH LEVEL OF FUNCTION: Antalgic gait on level with boot on left foot. TREATMENT: Therapeutic Exercise: 1: AROM ankle pumps x 20 reps 2: AROM ankle inv/ever x 20 reps 3: AROM ankle circles x 20 CW and CCW 4: ankle alphabet x1 5: seated left toe raises 2 x 12 reps 6: seated left ankle heel raises 2 x 12 reps 7: * Seated left toe scrunches 2x30 seconds. 8: Education on elevating left LE above level of heart. 9: Education on use of iced water bottle on plantar surface of foot for short time periods. Skilled Intervention: Patient was educated in proper exercise technique and purpose for exercises. Reviewed and educated patient on additions/changes for home exercise program as above (*) Skilled judgment was provided in selection of appropriate interventions. Provided written instruction for home exercise program to facilitate proper performance and compliance. Correct performance of therapeutic exercises was facilitated with verbal and visual cuing. Education as noted above. Manual Therapy: 1: Desentization techniques left foot and towel rubbing and finger tapping multiple times intermittently during rest periods from exercise. 2: Left LE elevated on wedge bolster with retrograde massage x 8 mintues with pressure to patient tolerance. Skilled Intervention: Manual skills to improve joint mobility, ROM, and decrease pain. Utilized anatomy knowledge of the therapist, and assessment of patient's response to intervention. Billing: [facility]: Therapeutic Exercise ([id number]): 1:1 time: 35 minutes (2 units: 23-37 mins) Manual Therapy ([id number]): 1:1 time: 10 minutes (1 unit: 8-22 mins) Total time: 45 minutes Rita Sun PTRanjit/Agnes Bunn PT Previous Version Follow-up and Disposition History Recorded PROGRESS Observed: 07/14/2017 Status: COMPLETED Source: [place] 11:28 AM [facility] [place] REPOSITORY HNO ID: [id number] Author: Kat Milton (Pt) Service: (none) Author Type: Physical Therapist Type: Progress Notes Filed: 07/14/2017 8:14 PM Note Text: Episode Visit Count: 1 Therapist That Will Oversee The Plan Of Care: Kat Milton Start of Care Date: 07/14/17 Onset Date: 02/17/17 Patient Identified by Name and Date of : Yes REHABILITATION AND SPORTS THERAPY PHYSICAL THERAPY EVALUATION PLAN OF CARE: Assessment: Renae Elizondo presents with the diagnosis of s/p L talonavicular fusion. She presents with impairments of L LE weakness, edema, sensory abnormalities, decreased AROM and gait abnormalities. She may benefit from skilled therapy services to improve L ankle AROM, strength, edema reduction, desensitization and normal gait pattern. Prognosis: Excellent Excellent due to: current objective clinical presentation;good overall health status;within-session changes at evaluation;good support system/ coping skills Goals for Episode of Care: created on 07/14/17 through 09/13/17 [place] in home exercise program. Patient will decrease pain rating by 2 points to meet minimal clinical important difference for numeric pain rating scale. Patient will increase active ROM of L ankle to allow pt to improved performance of ADLs and to normalize gait mechanics / gait pattern . Patient will increase strength of L LE to 4+ to 5/5 to allow for return to prior functional status and normalized gait mechanics. Perform community ambulation, stair negotiation and undisturbed sleep with decreased report of symptoms/pain in 8 weeks. Demonstrate improvement on functional score: Patient will increase his/her score on the Lower Extremity Functional Scale by at least 9 points to indicate a Minimal Clinical Important Difference. Normal gait. Planned Interventions, Frequency, and Duration: Current Frequency: 2x/week Duration: 8 weeks Total Number of Visits Planned: 16 Patient to be see for Planned Treatment Interventions: Therapeutic exercise;Neuromuscular re-education;Manual therapy;Gait Training;Patient/Family/Caregiver Education PLAN FOR NEXT VISIT: Assess response to initial treatment and HEP. Review HEP to insure correct performance. Instruct in gait iwth quad or straight cane as a safer option versus reaching for tapia/furniture. Patient demonstrates good understanding of plan of care and treatment. The above goals and plan of care were discussed and agreed upon by patient/family. SUBJECTIVE: Renae Elizondo is a 62 year old female seen today for Pt presents s/p L talonavicular fusion on 02/17/17. She was placed in a cast until about 5 weeks ago, and since then is wearing a walking boot. She currently presents ambulating independently, but states she uses a walker with wheels at home. Functional Limitations: walking in the community;stair negotiation;sleeping Prior Level of Function: Independent with restrictions Patient Goals: Walking without having to hold onto anything, able to get back to work and manage daily activities. Intake Information: Prescription present Previous Treatment: Pain meds? 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 Ankle Observations Weight Bearing Status: WBAT L Ankle Presents with: Swelling;Atrophy;Incision L Atrophy : lower leg musculature L Incision: vertical incision dorsum of foot and small, incision distal medial foot, both very well healed and no signs of infection evident Ankle Brace/Support: Boot (L LE) Sensation - Lower Extremity LE Light Touch Sensation: Grossly Intact (c/o mild numbness 1st MTP, hypersensitvity ofplantar surface) Gait Assessment Weight Bearing Status: WBAT Gait: Independent (Pt reached for wall or furniture.) Gait Device: None Gait Deviations: Left Lower Extremity Gait Deviations Left Lower Extremity: Stance time decreased;Other: See comment (and deviations d/t walking boot in place) LE AROM R Ankle Dorsiflexion: 5 Degrees R Ankle Plantar Flexion: 55 Degrees R Ankle Inversion: 58 R Ankle Eversion: 10 L Ankle Dorsiflexion: 0 Degrees (to neutral with medial ankle pain) L Ankle Plantar Flexion: 37 Degrees L Ankle Inversion: 20 L Ankle Eversion: 10 LE Strength R LE Strength: 5/5 L Hip Flexion: 5/5 L Hip ABduction: 5/5 L Hip ADduction: 5/5 L Knee Extension: 4/5 L Knee Flexion: 4+/5 L Ankle Dorsiflexion: 3+/5 (minimal pain) L Ankle Plantar Flexion: 4/5 (discomfort at ankle) L Ankle Inversion: 3+/5 (pain) L Ankle Eversion: 4-/5 (peroneal soreness) Education: Education Learning Preferences: Demonstration;Explanation Barriers: None Learning/educational needs: Safety;Home exercise program;Plan of Care;Gait Training Education Provided: Yes, see treatment interventions for education provided Education Provided To: Patient Education Mode/Type: Demonstration;Explanation/Discussion;Literature/Printed Materials;Performance Response to Education/Teach Back: States/Identifies;Return Demonstration;Requires Review/Additional Education TREATMENT: Evaluation Therapeutic Exercise: 1: *AROM ankle pumps x 20 reps 2: *AROM ankle inv/ever x 20 reps 3: *AROM ankle circles x 20 CW and CCW 4: *ankle alphabet x1 5: *seated B toe raises 2 x 10 reps 6: *seated B ankle heel raises 2 x 10 reps Skilled Intervention: Patient was educated in proper exercise technique and purpose for exercises. Skilled judgment was provided in selection of appropriate interventions. Provided written instruction for home exercise program to facilitate proper performance and compliance. Correct performance of therapeutic exercises was facilitated with verbal and visual cuing. Patient education as noted. Neuromuscular Re-Education: 1: Educated pt regarding hypersensitivity of foot and instructed in desensitization techniques to apply multiple times daily at home. Skilled Intervention: Education in proprioceptive/kinesthetic awareness during standing and manual desensitization techniques. Desensitization techniques including varying surfaces and textures for plantar surface of L foot. Correct performance of home program was facilitated with verbal and visual cueing. Patient education as noted. Billing: [facility]: Evaluation - Low Complexity ([id number]) Therapeutic Exercise (82404): 1:1 time: 20 minutes (1 unit: 8-22 mins) Neuromuscular Re-education (58198): 1:1 time:10 minutes (1 unit: 8-22 mins) Total time: 48 minutes Kat Milton PT CNTHERAPY Observed: 07/14/2017 Status: COMPLETED Source: [place] 11:15 AM [facility] [place] REPOSITORY OT/PT/Speech Visit (PTWS) RENAE ELIZONDO ([id number]) 1955 F Date Time Provider Department 07/14/17 11:15 AM KAT MILTON (PT) PTWS Date Time Provider Department Center 07/14/2017 11:15 AM [id number] MILTON (PT) PTWS [facility] Reason for Visit: PT Eval [747] Primary Visit Diagnosis:Arthritis, midfoot [M19.079] Allergies As of Date: 07/14/2017 Noted Allergy Reaction ADHESIVE TAPE (ROSINS) 02/13/2006 2 - Rash Comments: tore skin/blisters MORPHINE 02/05/2006 5 - Intolerance Comments: vomiting, shaking. NSAIDS (NON-STEROIDAL ANTI-INFLAM*10/05/2014 11 - Vomiting VASOTEC (ENALAPRIL MALEATE) 09/08/2008 Comments: nausea/doesn't work Date Reviewed: 07/07/2017 Reviewed by: Milana Humphrey Ma - Fully Assessed Prescriptions as of 07/14/2017 Sig: LEFLUNOMIDE 20 MG TABLET Take 1 tablet by mouth once d* HYDROXYCHLOROQUINE 200 MG TAB* Take 1 tablet by mouth twice * DICLOFENAC 1 % TOPICAL GEL apply topically 4 grams to fo* CHOLECALCIFEROL (VITAMIN D3) * Take 2,000 Units by mouth onc* PROLIA SUBCUTANEOUS Inject subcutaneously once e* CELECOXIB 200 MG CAPSULE Take 200 mg by mouth as neede* MAGNESIUM OXIDE 500 MG TABLET Taking 250mg. Take two tablet* ACETAMINOPHEN 500 MG TABLET Take 500 mg by mouth every 8 * CPAP CHIN STRAP, USED WITH CPAP DE* FLUTICASONE 50 MCG/ACTUATION * Use 1 [place] in each nostril d* FERROUS SULFATE 325 MG (65 MG* Take 325 mg by mouth three ti* ASCORBIC ACID (VITAMIN C) 500* Take 500 mg by mouth three ti* CPAP AutoPAP 10-20 cmH2O, suitable* CYCLOBENZAPRINE 10 MG TABLET LEVOTHYROXINE 50 MCG TABLET Take 50 mcg by mouth daily be* CLOBETASOL 0.05 % TOPICAL CRE* as directed * GABAPENTIN 300 MG CAPSULE Take 300 mg by mouth three ti* * PROMETHAZINE 25 MG TABLET Take one(1) tablet every four* * ATIVAN 1 MG TABLET takes 1/2 tab as needed * FENTANYL 50 MCG/HR TRANSDERMA* Apply as directed. Change pat* * B COMPLEX 1 TABLET Take one(1) tablet daily. * MULTIVITAMIN,TX-MINERALS TABL* 1 tab daily Progress Notes: Kat Milton (Pt) 07/14/2017 8:14 PM Signed Episode Visit Count: 1 Therapist That Will Oversee The Plan Of Care: Kat Milton Start of Care Date: 07/14/17 Onset Date: 02/17/17 Patient Identified by Name and Date of : Yes REHABILITATION AND SPORTS THERAPY PHYSICAL THERAPY EVALUATION PLAN OF CARE: Assessment: Renae Elizondo presents with the diagnosis of s/p L talonavicular fusion. She presents with impairments of L LE weakness, edema, sensory abnormalities, decreased AROM and gait abnormalities. She may benefit from skilled therapy services to improve L ankle AROM, strength, edema reduction, desensitization and normal gait pattern. Prognosis: Excellent Excellent due to: current objective clinical presentation;good overall health status;within-session changes at evaluation;good support system/ coping skills Goals for Episode of Care: created on 07/14/17 through 09/13/17 [place] in home exercise program. Patient will decrease pain rating by 2 points to meet minimal clinical important difference for numeric pain rating scale. Patient will increase active ROM of L ankle to allow pt to improved performance of ADLs and to normalize gait mechanics / gait pattern . Patient will increase strength of L LE to 4+ to 5/5 to allow for return to prior functional status and normalized gait mechanics. Perform community ambulation, stair negotiation and undisturbed sleep with decreased report of symptoms/pain in 8 weeks. Demonstrate improvement on functional score: Patient will increase his/her score on the Lower Extremity Functional Scale by at least 9 points to indicate a Minimal Clinical Important Difference. Normal gait. Planned Interventions, Frequency, and Duration: Current Frequency: 2x/week Duration: 8 weeks Total Number of Visits Planned: 16 Patient to be see for Planned Treatment Interventions: Therapeutic exercise;Neuromuscular re-education;Manual therapy;Gait Training;Patient/Family/Caregiver Education PLAN FOR NEXT VISIT: Assess response to initial treatment and HEP. Review HEP to insure correct performance. Instruct in gait iwth quad or straight cane as a safer option versus reaching for tapia/furniture. Patient demonstrates good understanding of plan of care and treatment. The above goals and plan of care were discussed and agreed upon by patient/family. SUBJECTIVE: Renae Elizondo is a 62 year old female seen today for Pt presents s/p L talonavicular fusion on 02/17/17. She was placed in a cast until about 5 weeks ago, and since then is wearing a walking boot. She currently presents ambulating independently, but states she uses a walker with wheels at home. Functional Limitations: walking in the community;stair negotiation;sleeping Prior Level of Function: Independent with restrictions Patient Goals: Walking without having to hold onto anything, able to get back to work and manage daily activities. Intake Information: Prescription present Previous Treatment: Pain meds? 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 Ankle Observations Weight Bearing Status: WBAT L Ankle Presents with: Swelling;Atrophy;Incision L Atrophy : lower leg musculature L Incision: vertical incision dorsum of foot and small, incision distal medial foot, both very well healed and no signs of infection evident Ankle Brace/Support: Boot (L LE) Sensation - Lower Extremity LE Light Touch Sensation: Grossly Intact (c/o mild numbness 1st MTP, hypersensitvity ofplantar surface) Gait Assessment Weight Bearing Status: WBAT Gait: Independent (Pt reached for wall or furniture.) Gait Device: None Gait Deviations: Left Lower Extremity Gait Deviations Left Lower Extremity: Stance time decreased;Other: See comment (and deviations d/t walking boot in place) LE AROM R Ankle Dorsiflexion: 5 Degrees R Ankle Plantar Flexion: 55 Degrees R Ankle Inversion: 58 R Ankle Eversion: 10 L Ankle Dorsiflexion: 0 Degrees (to neutral with medial ankle pain) L Ankle Plantar Flexion: 37 Degrees L Ankle Inversion: 20 L Ankle Eversion: 10 LE Strength R LE Strength: 5/5 L Hip Flexion: 5/5 L Hip ABduction: 5/5 L Hip ADduction: 5/5 L Knee Extension: 4/5 L Knee Flexion: 4+/5 L Ankle Dorsiflexion: 3+/5 (minimal pain) L Ankle Plantar Flexion: 4/5 (discomfort at ankle) L Ankle Inversion: 3+/5 (pain) L Ankle Eversion: 4-/5 (peroneal soreness) Education: Education Learning Preferences: Demonstration;Explanation Barriers: None Learning/educational needs: Safety;Home exercise program;Plan of Care;Gait Training Education Provided: Yes, see treatment interventions for education provided Education Provided To: Patient Education Mode/Type: Demonstration;Explanation/Discussion;Literature/Printed Materials;Performance Response to Education/Teach Back: States/Identifies;Return Demonstration;Requires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 suspicious rashes or lesions MEDICAL DECISION MAKING Assessment: (M06.09) Rheumatoid arthritis of multiple sites with negative rheumatoid factor (HCC) (primary encounter diagnosis) Comment: RA has been ok, she is on Arava 20 mg/d and Plaqeunil 200 mg/d- she has such a large OA overlap it is difficult to distinguish. OA- she is on celebrex prn and tylenol- she does not take on a regular basis, can do the tylenol daily 1 gm and then prn from there needs follow up on WBC was a little low this month- will repeat in 3-4 weeks. no changes to meds see when last dxa was, needs to be Q 2 years, prolia is done locally. discussed her work, I support her short term disability due to her severe limitations from her OA s/p ankle surgery with significant limitations at this time. Plan: CBC Continue prolia with local care MD. At today's visit the patient's disease appears to be stable. Available laboratories were reviewed with the patient. Radiographs were reviewed at todays visit. PLAN: Continue current medications. Pending studies/orders: as noted above Consults: none Monitoring: Continue every 2 months labs Patient instructed to notify provider of any changes in medical condition. Follow-up: 3-4 months- will establish with Dr. Hunter given Dr. Díaz on prolonged medical leave. 25 minutes spent [id number] with the patient during this office visit during which counseling or coordination of care activities account for more than 50 percent of this office visit. Maryjane Bower, Maryjane Bethea CNP (Produce Department Supervisor) 07/07/2017 9:00 AM Signed FAX prior bone density to Maryjane [phone] , needs to be every 2 years. Referring Provider: SELF [200] Allergies As of Date: 07/07/2017 Noted Allergy Reaction ADHESIVE TAPE (ROSINS) 02/13/2006 2 - Rash Comments: tore skin/blisters MORPHINE 02/05/2006 5 - Intolerance Comments: vomiting, shaking. NSAIDS (NON-STEROIDAL ANTI-INFLAM*10/05/2014 11 - Vomiting VASOTEC (ENALAPRIL MALEATE) 09/08/2008 Comments: nausea/doesn't work Date Reviewed: 07/07/2017 Reviewed by: Milana Humphrey Ma - Fully Assessed Reason for Visit: Follow Up [171] Primary Visit Diagnosis:Rheumatoid arthritis of multiple sites with negative rheumatoid factor (HCC) [M06.09] Order(s):[facility] [[facility]] Order #: [id number] FUTURE leflunomide (ARAVA) 20 mg tabletTake 1 tablet by mouth once daily.Disp: 90 tabletRfl: 3 Prescriptions as of 07/07/2017 Sig: LEFLUNOMIDE 20 MG TABLET Take 1 tablet by mouth once d* HYDROXYCHLOROQUINE 200 MG TAB* Take 1 tablet by mouth twice * DICLOFENAC 1 % TOPICAL GEL apply topically 4 grams to fo* CHOLECALCIFEROL (VITAMIN D3) * Take 2,000 Units by mouth onc* PROLIA SUBCUTANEOUS Inject subcutaneously once e* CELECOXIB 200 MG CAPSULE Take 200 mg by mouth as neede* MAGNESIUM OXIDE 500 MG TABLET Taking 250mg. Take two tablet* ACETAMINOPHEN 500 MG TABLET Take 500 mg by mouth every 8 * CPAP CHIN STRAP, USED WITH CPAP DE* FLUTICASONE 50 MCG/ACTUATION * Use 1 [place] in each nostril d* FERROUS SULFATE 325 MG (65 MG* Take 325 mg by mouth three ti* ASCORBIC ACID (VITAMIN C) 500* Take 500 mg by mouth three ti* CPAP AutoPAP 10-20 cmH2O, suitable* CYCLOBENZAPRINE 10 MG TABLET LEVOTHYROXINE 50 MCG TABLET Take 50 mcg by mouth daily be* CLOBETASOL 0.05 % TOPICAL CRE* as directed * GABAPENTIN 300 MG CAPSULE Take 300 mg by mouth three ti* * PROMETHAZINE 25 MG TABLET Take one(1) tablet every four* * ATIVAN 1 MG TABLET takes 1/2 tab as needed * FENTANYL 50 MCG/HR TRANSDERMA* Apply as directed. Change pat* * B COMPLEX 1 TABLET Take one(1) tablet daily. * MULTIVITAMIN,TX-MINERALS TABL* 1 tab daily Problem List As Of Date 07/07/2017 Noted Resolved LUMP OR MASS IN BREAST [N63.0] INVALID FOR* MALIG NEOPLASM BREAST-CENTRAL [C50.119] INVALID FOR* SEROMA, POST OP [TAB0958] INVALID FOR*09/30/2016 ANEMIA NOS [D64.9] INVALID FOR* Sacroiliac joint pain [M53.3] INVALID FOR* Benign neoplasm of skin of trunk, except scrotu*INVALID FOR* HARRISON (obstructive sleep apnea) AHI 13, but with *INVALID FOR* More... RLS (restless legs syndrome) [G25.81] INVALID FOR* Low ferritin level [R79.0] INVALID FOR* Sarcoidosis (HCC) [D86.9] INVALID FOR* Nasal congestion, nocturnal. 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 Other instructions from your clinician: FAX prior bone density to Maryjane [phone] , needs to be every 2 years. Prescriptions ordered this encounter Disp Refills Start End LEFLUNOMIDE 20 MG TABLET 90 t* 3 07/07/2017 Route: ORAL Sig: Take 1 tablet by mouth once daily. Medications Discontinued During This Encounter leflunomide (ARAVA) 20 mg tablet 90 t* 3 07/09/2016 07/07/2017 Route: ORAL Sig: Take 1 tablet by mouth once daily. Disc: Reason for discontinue is not on file. Disposition: Return in about 4 months (around 11/07/2017) for with dr hunter to establish. Follow-up and Disposition History Recorded Encounter Status:Closed by MARYJANE BOWER CNP on 07/07/17 PULMONARY FUNCTION Observed: 07/04/2017 Status: F Source: [place] REPORT COMP 11:01 AM [facility] REPOSITORY [facility] Pulmonary Services/Neurology [address] [place] [address] MR#: [id number] Acct: [id number] Name: RENAE ELIZONDO Rep #: [id number] : 1955 62 From: Donnell Valdivia MD Referring Dr: Donnell Valdivia MD Status: REG CLI Ordering Dr: Date: Location: [facility] Sex: F C COMPLETE PULMONARY FUNCTION TEST INTERPRETATION Brief HPI: Patient is a 62 year old female, currently under the care of myself, who presents to [facility] for complete pulmonary function tests secondary to diagnosis of sarcoidosis. Respiratory therapist reports good effort and reproducible results. Interpretation: Forced expiration spirometry shows no large airways obstructive ventilatory defect with an FEV1 of 80% predicted. There is no significant bronchodilator response by ATS criteria. Spirograms are of good quality and plateau normally. The respiratory flow volume loop shows a normal pattern. Lung volumes by body plethysmography show a normal total lung capacity at 8.44 L, 82% predicted. All other lung volumes are within normal limits. Diffusion capacity by carbon monoxide is at the lower limit of normal at 66% predicted. The airway resistance is normal. No previous pulmonary function tests were available for review. Impression: Grossly normal pulmonary function tests, but lung volumes and diffusing capacity are at the lower limit of normal and should likely be followed serially. 07/04/17 1101 <Electronically signed by Donnell Valdivia MD> Date Donnell Valdivia MD CC: Elisa Baxter MD; Donnell Valdivia MD Date Dictated: 07/04/17 1058 Date Transcribed: 07/04/171057 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: MARY Signed PROGRESS Observed: 07/02/2017 Status: COMPLETED Source: [place] 10:45 AM [facility] [place] REPOSITORY HNO ID: [id number] Author: Karina De Leon Service: (none) Author Type: Physician Type: Progress Notes Filed: 07/02/2017 10:46 AM Note Text: July 02, 2017 HPI: Renae Elizondo is following up for left TN fusion. Pain Descriptors: Duration: 4 mos Severity: mild Quality: dull ache Location: left foot Context: worse with activity Modifying Factors: Improved with rest. Supporting Subjective Information Below: Estimated body mass index is 33.29 kg/m? as calculated from the following: Height as of 02/17/17: 157.5 cm (5' 2). Weight as of 02/17/17: 82.6 kg (182 lb). Past Medical History PAST MEDICAL HISTORY Diagnosis Date - Anemia - Hypothyroidism - Malignant neoplasm of breast (female), unspecified site - Obstructive sleep apnea - Other and unspecified diseases of upper respiratory tract - RA (rheumatoid arthritis) (HCC) - S/P gastric bypass - Sarcoidosis (HCC) Surgical History SURGICALHX@ Family History @[facility]@ Medications: Current Outpatient Prescriptions: hydroxychloroquine (PLAQUENIL) 200 mg tablet Take 1 tablet by mouth twice daily. diclofenac sodium (VOLTAREN) 1 % topical gel apply topically 4 grams to foot four times a day cholecalciferol (VITAMIN D-3) 2,000 unit tablet Take 2,000 Units by mouth once daily. DENOSUMAB (PROLIA SUBCUTANEOUS) Inject subcutaneously once every 6 months. leflunomide (ARAVA) 20 mg tablet Take 1 tablet by mouth once daily. celecoxib (CELEBREX) 200 mg capsule Take 200 mg by mouth as needed. Magnesium Oxide 500 mg tab Taking 250mg. Take two tablets by mouth once daily. acetaminophen (TYLENOL EXTRA STRENGTH) 500 mg tablet Take 500 mg by mouth every 8 hours as needed. CPAP CHIN STRAP, USED WITH CPAP DEVICE fluticasone (FLONASE) 50 mcg/actuation nasal spray Use 1 [place] in each nostril daily at bedtime. ferrous sulfate 325 mg (65 mg iron) tablet Take 325 mg by mouth three times daily with meals. ascorbic acid (VITAMIN C) 500 mg tablet Take 500 mg by mouth three times daily. CPAP AutoPAP 10-20 cmH2O, suitable mask, humidity, filters. Lifetime supplies. Dx: 327.23. Fax compliance rpt to [phone] in 4-6 weeks. cyclobenzaprine (FLEXERIL) 10 mg tablet levothyroxine (LEVOTHROID) 50 mcg tablet Take 50 mcg by mouth daily before breakfast. CLOBETASOL 0.05 % cream as directed gabapentin 300 mg capsule Take 300 mg by mouth three times daily. PROMETHAZINE 25 MG TAB Take one(1) tablet every four(4) to six(6) hours as needed for nausea. lorazepam(ATIVAN 1 MG TAB) takes 1/2 tab as needed fentanyl 50 mcg/hr TRANSDERM. PT72 Apply as directed. Change patch every 3 days. B COMPLEX 1 TAB Take one(1) tablet daily. MULTIVITAMIN,TX-MINERALS TAB 1 tab daily No current facility-administered medications for this visit. Allergies: Adhesive Tape (Rosins); Morphine; Nsaids (Non-Steroidal Anti-Inflammatory Drug); Vasotec [Enalapril Maleate] Review Of Systems GENERAL:Negative for malaise, significant weight loss and fever HEENT:Negative for frequent or significant headaches, significant changes in vision or vision problems, significant ear problems or hearing loss, nasal discharge or nose bleeds and sore throat, difficulty swallowing, mouth lesions NECK:Negative for lumps, goiter, pain and significant neck swelling RESPIRATORY: Negative for cough, wheezing and shortness of breath CARDIOVASCULAR: Negative for chest pain, leg swelling and palpitations GASTROINTESTINAL: Negative for abdominal discomfort, blood in stools or black stools and change in bowel habits GENITOURINARY: Negative for dysuria, frequency and incontinence MUSCULOSKELETAL: Negative for joint pain or swelling, back pain, and muscle pain. NEUROLOGIC:Negative for focal numbness or weakness, headaches and dizziness. SKIN:Negative for lesions, rash, and itching. PSYCHIATRIC: Negative for sleep disturbance, mood disorder and recent psychosocial stressors. HEMATOLOGIC/LYMPHATIC/IMMUNOLOGIC:Negative for prolonged bleeding, bruising easily, and swollen nodes. ENDOCRINE: Negative for cold or heat intolerance, polyuria, polydipsia and goiter. Physical Exam: Basic physical examination reveals the patient to be in no acute distress. The patient is alert and oriented. Head is atraumatic, normocephalic. Neck ROM grossly intact. Mucous membranes are moist. Eyes, ears, and nose are normal in appearance. Hearing is grossly intact. Breathing is unlabored with grossly normal chest motion. Limited Upper Extremity Exam: Shoulders with grossly intact ROM and strength, no obvious deformity. Elbows with grossly intact ROM and strength, no obvious deformity. Hand and wrist with grossly intact ROM and strength, no obvious deformity. Focused orthopaedic examination reveals the following: Healed incision Mild swelling Imaging: Healed fusion Assessment and Plan: Left TN Fusion PT WBAT Wean boot Return to clinic: 3 mos X-Ray's at next visit: Yes PCP: Elisa Baxter [address] [facility] [id number] FELLOW / RESIDENT: No fellow or resident assisted in this office visit. At least 50% of the duration of this visit was spent performing direct [id number] counseling. Karina De Leon MD CNOV Observed: 07/02/2017 Status: COMPLETED Source: [place] 9:50 AM [facility] REPOSITORY Office Visit (ORFTMN) RENAE ELIZONDO ([id number]) 1955 F Date Time Provider Department 07/02/17 9:50 AM KARINA DE LEON During your visit today, we recorded the following information about you: Karina De Leon MD 07/02/2017 10:46 AM Signed July 02, 2017 HPI: Renae Elizondo is following up for left TN fusion. Pain Descriptors: Duration: 4 mos Severity: mild Quality: dull ache Location: left foot Context: worse with activity Modifying Factors: Improved with rest. Supporting Subjective Information Below: Estimated body mass index is 33.29 kg/m? as calculated from the following: Height as of 02/17/17: 157.5 cm (5' 2). Weight as of 02/17/17: 82.6 kg (182 lb). Past Medical History PAST MEDICAL HISTORY Diagnosis Date - Anemia - Hypothyroidism - Malignant neoplasm of breast (female), unspecified site - Obstructive sleep apnea - Other and unspecified diseases of upper respiratory tract - RA (rheumatoid arthritis) (HCC) - S/P gastric bypass - Sarcoidosis (HCC) Surgical History SURGICALHX@ Family History @[facility]@ Medications: Current Outpatient Prescriptions: hydroxychloroquine (PLAQUENIL) 200 mg tablet Take 1 tablet by mouth twice daily. diclofenac sodium (VOLTAREN) 1 % topical gel apply topically 4 grams to foot four times a day cholecalciferol (VITAMIN D-3) 2,000 unit tablet Take 2,000 Units by mouth once daily. DENOSUMAB (PROLIA SUBCUTANEOUS) Inject subcutaneously once every 6 months. leflunomide (ARAVA) 20 mg tablet Take 1 tablet by mouth once daily. celecoxib (CELEBREX) 200 mg capsule Take 200 mg by mouth as needed. Magnesium Oxide 500 mg tab Taking 250mg. Take two tablets by mouth once daily. acetaminophen (TYLENOL EXTRA STRENGTH) 500 mg tablet Take 500 mg by mouth every 8 hours as needed. CPAP CHIN STRAP, USED WITH CPAP DEVICE fluticasone (FLONASE) 50 mcg/actuation nasal spray Use 1 [place] in each nostril daily at bedtime. ferrous sulfate 325 mg (65 mg iron) tablet Take 325 mg by mouth three times daily with meals. ascorbic acid (VITAMIN C) 500 mg tablet Take 500 mg by mouth three times daily. CPAP AutoPAP 10-20 cmH2O, suitable mask, humidity, filters. Lifetime supplies. Dx: 327.23. Fax compliance rpt to [phone] in 4-6 weeks. cyclobenzaprine (FLEXERIL) 10 mg tablet levothyroxine (LEVOTHROID) 50 mcg tablet Take 50 mcg by mouth daily before breakfast. CLOBETASOL 0.05 % cream as directed gabapentin 300 mg capsule Take 300 mg by mouth three times daily. PROMETHAZINE 25 MG TAB Take one(1) tablet every four(4) to six(6) hours as needed for nausea. lorazepam(ATIVAN 1 MG TAB) takes 1/2 tab as needed fentanyl 50 mcg/hr TRANSDERM. PT72 Apply as directed. Change patch every 3 days. B COMPLEX 1 TAB Take one(1) tablet daily. MULTIVITAMIN,TX-MINERALS TAB 1 tab daily No current facility-administered medications for this visit. Allergies: Adhesive Tape (Rosins); Morphine; Nsaids (Non-Steroidal Anti-Inflammatory Drug); Vasotec [Enalapril Maleate] Review Of Systems GENERAL:Negative for malaise, significant weight loss and fever HEENT:Negative for frequent or significant headaches, significant changes in vision or vision problems, significant ear problems or hearing loss, nasal discharge or nose bleeds and sore throat, difficulty swallowing, mouth lesions NECK:Negative for lumps, goiter, pain and significant neck swelling RESPIRATORY: Negative for cough, wheezing and shortness of breath CARDIOVASCULAR: Negative for chest pain, leg swelling and palpitations GASTROINTESTINAL: Negative for abdominal discomfort, blood in stools or black stools and change in bowel habits GENITOURINARY: Negative for dysuria, frequency and incontinence MUSCULOSKELETAL: Negative for joint pain or swelling, back pain, and muscle pain. NEUROLOGIC:Negative for focal numbness or weakness, headaches and dizziness. SKIN:Negative for lesions, rash, and itching. PSYCHIATRIC: Negative for sleep disturbance, mood disorder and recent psychosocial stressors. HEMATOLOGIC/LYMPHATIC/IMMUNOLOGIC:Negative for prolonged bleeding, bruising easily, and swollen nodes. ENDOCRINE: Negative for cold or heat intolerance, polyuria, polydipsia and goiter. Physical Exam: Basic physical examination reveals the patient to be in no acute distress. The patient is alert and oriented. Head is atraumatic, normocephalic. Neck ROM grossly intact. Mucous membranes are moist. Eyes, ears, and nose are normal in appearance. Hearing is grossly intact. Breathing is unlabored with grossly normal chest motion. Limited Upper Extremity Exam: Shoulders with grossly intact ROM and strength, no obvious deformity. Elbows with grossly intact ROM and strength, no obvious deformity. Hand and wrist with grossly intact ROM and strength, no obvious deformity. Focused orthopaedic examination reveals the following: Healed incision Mild swelling Imaging: Healed fusion Assessment and Plan: Left TN Fusion PT WBAT Wean boot Return to clinic: 3 mos X-Ray's at next visit: Yes PCP: Elisa Baxter [address] [place] [address] FELLOW / RESIDENT: No fellow or resident assisted in this office visit. At least 50% of the duration of this visit was spent performing direct [id number] counseling. Karina De Leon MD Referring Provider: KARINA DE LEON [[id number]] Allergies As of Date: 07/02/2017 Noted Allergy Reaction ADHESIVE TAPE (ROSINS) 02/13/2006 2 - Rash Comments: tore skin/blisters MORPHINE 02/05/2006 5 - Intolerance Comments: vomiting, shaking. NSAIDS (NON-STEROIDAL ANTI-INFLAM*10/05/2014 11 - Vomiting VASOTEC (ENALAPRIL MALEATE) 09/08/2008 Comments: nausea/doesn't work Date Reviewed: 07/02/2017 Reviewed by: Jovana Isbell Ma - Fully Assessed Reason for Visit: Follow Up [171] Cmt: left foot/ankle Primary Visit Diagnosis:Arthritis, midfoot [M19.079] Order(s):CONSULT TO PHYSICAL THERAPY [0705] Order #: [id number]: 1 Prescriptions as of 07/02/2017 Sig: HYDROXYCHLOROQUINE 200 MG TAB* Take 1 tablet by mouth twice * DICLOFENAC 1 % TOPICAL GEL apply topically 4 grams to fo* CHOLECALCIFEROL (VITAMIN D3) * Take 2,000 Units by mouth onc* PROLIA SUBCUTANEOUS Inject subcutaneously once e* LEFLUNOMIDE 20 MG TABLET Take 1 tablet by mouth once d* CELECOXIB 200 MG CAPSULE Take 200 mg by mouth as neede* MAGNESIUM OXIDE 500 MG TABLET Taking 250mg. Take two tablet* ACETAMINOPHEN 500 MG TABLET Take 500 mg by mouth every 8 * CPAP CHIN STRAP, USED WITH CPAP DE* FLUTICASONE 50 MCG/ACTUATION * Use 1 [place] in each nostril d* FERROUS SULFATE 325 MG (65 MG* Take 325 mg by mouth three ti* ASCORBIC ACID (VITAMIN C) 500* Take 500 mg by mouth three ti* CPAP AutoPAP 10-20 cmH2O, suitable* CYCLOBENZAPRINE 10 MG TABLET LEVOTHYROXINE 50 MCG TABLET Take 50 mcg by mouth daily be* CLOBETASOL 0.05 % TOPICAL CRE* as directed * GABAPENTIN 300 MG CAPSULE Take 300 mg by mouth three ti* * PROMETHAZINE 25 MG TABLET Take one(1) tablet every four* * ATIVAN 1 MG TABLET takes 1/2 tab as needed * FENTANYL 50 MCG/HR TRANSDERMA* Apply as directed. Change pat* * B COMPLEX 1 TABLET Take one(1) tablet daily. * MULTIVITAMIN,TX-MINERALS TABL* 1 tab daily Problem List As Of Date 07/02/2017 Noted Resolved LUMP OR MASS IN BREAST [N63.0] INVALID FOR* MALIG NEOPLASM BREAST-CENTRAL [C50.119] INVALID FOR* SEROMA, POST OP [GHX1075] INVALID FOR*09/30/2016 ANEMIA NOS [D64.9] INVALID FOR* Sacroiliac joint pain [M53.3] INVALID FOR* Benign neoplasm of skin of trunk, except scrotu*INVALID FOR* HARRISON (obstructive sleep apnea) AHI 13, but with *INVALID FOR* More... RLS (restless legs syndrome) [G25.81] INVALID FOR* Low ferritin level [R79.0] INVALID FOR* Sarcoidosis (HCC) [D86.9] INVALID FOR* Nasal congestion, nocturnal. 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 Encounter Status:Closed by KARINA DE LEON MD on 07/02/17 PROGRESS Observed: 07/02/2017 Status: COMPLETED Source: [place] 9:35 AM [facility] REPOSITORY HNO ID: [id number] Author: Dylan Olson (Rt) Service: Radiology Author Type: Kindergarten Paraprofessional Type: Progress Notes Filed: 07/02/2017 9:36 AM Note Text: Radiology Service Progress Note PATIENT NAME: Renae Elizondo DATE OF SERVICE: July 02, 2017 TIME: 9:36 AM PATIENT IDENTITY VERIFICATION COMPLETED USING TWO (2) METHODS: Patient confirmed name verbally and Date of . PATIENT GENDER DATA: Female. status: : No status: NO. PATIENT RELEVANT IMPLANT DATA REVIEWED: Yes RADIOLOGY DEPARTMENT: General X-ray: Exam(s) Completed: Lower Extremity X-Ray(s): Ankle, Left and Foot, Left: PERIPHERAL IV DATA: Not applicable SIGNED BY: RT Wesley July 02, 2017 9:36 AM XR ANKLE 3V AP/LAT/OBL Observed: 07/02/2017 Status: F Source: [facility] 9:33 AM [facility] REPOSITORY * * *Final Report* * * DATE OF EXAM: Jul 02 2017 9:33AM AOX [id number] - XR ANKLE 3V AP/LAT/OBL LT / PROCEDURE REASON: Pain in left ankle and joints of left foot * * * * Physician Interpretation * * * * EXAM: Ankle radiographs HISTORY: FOLLOW UP AFTER SURGERY IN JANUARY 2017 (accession [id number]), FOLLOW UP AFTER SURGERY IN 2016 (accession [id number]) Pain in left ankle and joints of left foot . TECHNIQUE: XR FOOT 3V AP/LAT/OBL LT, XR ANKLE 3V AP/LAT/OBL LT Laterality: LEFT Number of different views (projections): 3 M: XB_1 COMPARISON: 05/21/2017. RESULTS: Diffuse osteopenia. Talonavicular plate and screw fixation without evidence of periprosthetic lucency or hardware fracture. There is mild interval improvement of the bony bridging when compared to the 05/21/2017. No acute fracture, dislocation or focal osseous lesion. The ankle mortise has normal appearance without sclerosis, irregularity or collapse. No localized soft tissue swelling. Plantar and Achilles spurs. IMPRESSION: Postoperative changes with progression of fusion across the talonavicular joint. 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 Transcribe Date/Time: Jul 02 2017 10:21A Dictated by : YUNIEL BOB MD This examination was interpreted and the report reviewed and electronically signed by: VIRGILIO MORSE MD on Jul 02 2017 10:53AM EST [id number] XR FOOT 3V AP/LAT/OBL Observed: 07/02/2017 Status: F Source: [facility] 9:33 AM [facility] REPOSITORY * * *Final Report* * * DATE OF EXAM: Jul 02 2017 9:33AM AOX 5336 - XR FOOT 3V AP/LAT/OBL LT / PROCEDURE REASON: Pain in left ankle and joints of left foot * * * * Physician Interpretation * * * * EXAM: Ankle radiographs HISTORY: FOLLOW UP AFTER SURGERY IN JANUARY 2017 (accession [id number]), FOLLOW UP AFTER SURGERY IN 2016 (accession [id number]) Pain in left ankle and joints of left foot . TECHNIQUE: XR FOOT 3V AP/LAT/OBL LT, XR ANKLE 3V AP/LAT/OBL LT Laterality: LEFT Number of different views (projections): 3 M: XB_1 COMPARISON: 05/21/2017. RESULTS: Diffuse osteopenia. Talonavicular plate and screw fixation without evidence of periprosthetic lucency or hardware fracture. There is mild interval improvement of the bony bridging when compared to the 05/21/2017. No acute fracture, dislocation or focal osseous lesion. The ankle mortise has normal appearance without sclerosis, irregularity or collapse. No localized soft tissue swelling. Plantar and Achilles spurs. IMPRESSION: Postoperative changes with progression of fusion across the talonavicular joint. 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: PSCDeena Transcribe Date/Time: Jul 02 2017 10:21A Dictated by : YUNIEL BOB MD This examination was interpreted and the report reviewed and electronically signed by: VIRGILIO MORSE MD on Jul 02 2017 10:53AM EST [id number] CBC Collected: 07/01/2017 Status: F Source: [place] 12:40 PM [facility] REPOSITORY TYPE CODE TESTS RESULT OUT OF REFERENCE UNITS RANGE LAB WBC 3.70-11.00 k/uL Low WBC 3.64 LAB RBC 3.90-5.20 m/uL Low RBC 3.70 LAB HGB 11.5-15.5 g/dL Hemoglobin 11.5 LAB HCT 36.0-46.0 % Hematocrit 36.9 LAB MCV 80.0-100.0 fL MCV 99.7 LAB MCH 26.0-34.0 pG MCH 31.1 LAB MCHC 30.5-36.0 g/dL MCHC 31.2 LAB RDWCV 11.5-15.0 % RDW-CV 12.6 LAB PLTCT 150-400 k/uL Platelet Count 220 LAB MPV 9.0-12.7 fL MPV 9.7 LAB ABSNUC <0.01 k/uL Absolute nRBC <0.01 Performed By: #### CBC, CMP #### [facility] [address] [place] [address] COMP METABOLIC PANEL Collected: 07/01/2017 Status: F Source: [place] 12:40 [facility] REPOSITORY TYPE CODE TESTS RESULT OUT OF REFERENCE UNITS RANGE LAB TP 6.3-8.0 g/dL Protein, Total 7.0 LAB ALB 3.9-4.9 g/dL Albumin 4.0 LAB CA 8.5-10.2 mg/dL Low Calcium, Total 8.4 LAB TBIL 0.2-1.3 mg/dL Bilirubin, Total 0.4 LAB ALKP 32-117 U/L Alkaline Phosphatase 79 LAB AST 13-35 U/L AST 27 LAB GLU 74-99 mg/dL Glucose High 100 Result Comment: The [place] Diabetes Association (ADA) provides guidance for cutoff values for fasting glucose and random glucose. The ADA defines fasting as no caloric intake for at least 8 hours. Fas ting plasma glucose results between 100 to 125 mg/dL indicate increased risk for diabetes (prediabetes). Fasting plasma glucose results greater than or equal to 126 mg/dL meet the criteria for diagnosis of diabetes. In the absence of unequivocal hyperglycemia, results should be confirmed by repeat testing. In a patient with classic symptoms of hyperglycemia or hyperglycemic crisis, random plasma glucose results greater than or equal to 200 mg/dL meet the criteria for diagnosis of diabetes. Reference: Standards of Medical Care in Diabetes 2016, [place] Diabetes Association. Diabetes Care. 2016.39(Suppl 1). LAB BUN 7-21 mg/dL BUN 8 LAB CRET 0.58-0.96 mg/dL Creatinine Low 0.52 LAB NA 136-144 mmol/L Sodium 138 LAB K 3.7-5.1 mmol/L Potassium 4.4 LAB CL 97-105 mmol/L Chloride 101 LAB CO2 22-30 mmol/L CO2 25 LAB AGAP 9-18 mmol/L Anion Gap 12 LAB ALT 7-38 U/L ALT 19 LAB GFRAA eGFR- Amer. >60 LAB GFRNAA . eGFR-All Other Races >60 Result Comment: eGFR (Estimated GFR) Units of measure: mL/min/1.73 meters squared eGFR is derived from the reexpressed MDRD Study equation using the following parameters: serum creatinine, age, gender and race. The creatinine assay has been calibrated to be traceable to IDMS. An eGFR <60 mL/min/1.73m2 for >3 months is consistent with chronic kidney disease. Refer to KDOQI guidelines for clinical interpretation. In patients with unstable renal function, e.g. those with acute kidney injury, the eGFR may not accurately reflect actual GFR. Performed By: #### CBC, CMP #### [facility] [address] [place], [place] [address] PULMONARY VISIT REPORT Observed: 05/29/2017 Status: F Source: [place] 3:10 PM [facility] REPOSITORY [facility] [place] [address] [place] [address] OFFICE VISIT Date of Service: 05/29/17 MR#: [id number] Acct: [id number] Name: RENAE ELIZONDO Rep #: [id number] : 1955 Provider: Donnell Valdivia MD Age/Sex: 61/F Location: [facility] Status: Signed Assessment AND Plan 1. Sarcoidosis of lung D86.0 Plan Patient was diagnosed with sarcoidosis approximately 3 years ago that was confirmed by biopsy of the lung. Patient has not had any pulmonary function tests since that time. Patient is not reporting any significant shortness of breath on exertion or other constitutional symptoms, but is limited secondary to her rheumatoid arthritis. We will obtain a complete PFT for quantification and clarification of current lung function. No immunosuppression is indicated at this time. Obtain complete PFT. Orders Orders: 2. Rheumatoid arthritis involving multiple sites with positive rheumatoid factor M05.79 Plan Patient appears to be well controlled from her rheumatoid arthritis standpoint. Patient does actively follow with the nursing department chairperson. Patient with recent left ankle surgery, but appears to be recovering appropriately. Patient does report that she has been on methotrexate in the past, but is currently not on methotrexate therapy. Patient with a history of right-sided nodules previously. His was thought to be secondary to sarcoid, but rheumatoid nodules would be an option. Defer management to rheumatology Orders Orders: 3. HARRISON on CPAP G47.33; Z99.89 Plan Patient reports that she has been diagnosed with obstructive sleep apnea. Patient has not been able to be compliant recently secondary to lack of supplies. These will be arranged. We will also attempt to wean CPAP so that compliance report can be downloaded. Patient states that she uses [employer] as a DME. Patient does not report any significant change in weight since her titration. Role of weight loss was discussed with the patient. Link CPAP and download compliance report Plan Detail Follow Up 3 Months (BWA) HPI Cpap: Chief Complaint: Sleep Apnea Details: Patient is a 61-year-old female, currently in the care of Dr. Baxter, who presents for evaluation secondary to sleep apnea. Patient reports she was initially started on CPAP in 2014. Patient states that at that time she weighed approximately 220 pounds and was having sleep attacks. Patient was placed on CPAP with good response to symptoms. Patient states that she typically goes to sleep at approximately 11 PM and wakes at 6 AM. Patient does use narcotics on a routine basis since her breast cancer diagnosis approximately 10 years ago. Patient states that she has not been compliant with CPAP therapy recently secondary to a lack of supplies. Patient presents to establish care so that she can reinitiate therapy. Patient denied any previous problems with pain at the interface site, hoarseness, sore throat or dry mouth. Patient does report that she will wake up intermittently in the evening with acute anxiety. Recently, patient has been treating this with Ativan with good response. Patient reports a long history of HARRISON and pulmonary pathology. Patient states that she was diagnosed with sarcoidosis in the past and did receive prolonged steroid therapy. Patient states that she has since been discharged from the pulmonary practice and feels that she is at her baseline. 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 Patient estimates that her last pulmonary function test was approximately 2- 3 years ago. Patient does report a periodic cough, but not enough to interfere with the day. Patient also reports that she has rheumatoid arthritis and is currently being followed by a physician in [place]. Patient states that she feels well controlled on current therapy. Documentation reviewed 26 pages of documentation were reviewed from patient's primary care physician. This did show the patient takes Zofran, lorazepam and cyclobenzaprine as needed. Patient is also on Plaquenil and Neurontin. Chest x-ray completed previously was unremarkable. Patient does have a report of a CT scan showing multiple scattered nodules. This report also shows that a spirometry was completed on 12/23/2014 showing no obvious obstruction or restriction with diffusion capacity normal and a 6 minute walk without desaturation. Patient did have a bronchoscopy at that time and there was some concern for sarcoidosis. Intake Vital Signs05/29/17 Height 5 ft 5 in 05/29/17 Weight: 88.451 kg Intake Visit Reasons: Cpap DME Vendor: [employer] Allergies doxycycline Allergy (Mild, Verified 05/28/17 09:37) Nausea enalaprilat [From Vasotec] Allergy (Mild, Verified 05/28/17 09:38) Other - lightheadedness codeine Allergy (Verified 05/23/16 18:13) Unknown midazolam HCl [From Versed] Allergy (Verified 05/23/16 18:13) Anaphylaxis morphine Adverse Reaction (Verified 05/23/16 18:13) Nausea/Vom/Diarrhea NSAIDS (Non-Steroidal Anti-Inflamma Adverse Reaction (Verified 05/23/16 18:13) Other Medications Levothyroxine [Synthroid] 50 mcg PO DAILY 03/09/13 [History Confirmed 05/28/17] Gabapentin [Neurontin] 300 mg PO TIDCM 06/03/13 [History Confirmed 05/28/17] Hydroxychloroquine [Plaquenil] 200 mg PO DAILYCM 07/05/15 [History Confirmed 05/28/17] Doxycycline [Vibramycin] 100 mg PO BID #20 cap 05/23/16 [Rx] Leflunomide [Arava] 20 mg PO DAILY 05/23/16 [History Confirmed 05/28/17] traMADol [Ultram] 50 mg PO Q6H PRN PRN #20 tab 05/23/16 [Rx Confirmed 05/28/17] celecoxib 200 mg capsule 200 mg PO QDAY 05/28/17 [History Confirmed 05/28/17] cyclobenzaprine 10 mg tablet 10 mg PO TID PRN 05/28/17 [History Confirmed 05/28/17] denosumab 60 mg/mL subcutaneous syringe 60 mg SC [id number] 05/28/17 [History Confirmed 05/28/17] fentanyl 50 mcg/hr transdermal patch 1 patch TRANSDERMAL Q72H PRN 05/28/17 [History Confirmed 05/28/17] ferrous sulfate 325 mg (65 mg iron) tablet 325 mg PO QDAY tab 05/28/17 [History Confirmed 05/28/17] lorazepam 1 mg tablet 0.5 mg PO Q4H PRN tab 05/28/17 [History Confirmed 05/28/17] mometasone 50 mcg/actuation nasal spray 2 spray INTRANASAL QDAY g 05/28/17 [History Confirmed 05/28/17] multivitamin tablet 1 tab PO QDAY 05/28/17 [History Confirmed 05/28/17] ondansetron HCl 8 mg tablet 8 mg PO Q12H PRN 05/28/17 [History Confirmed 05/28/17] promethazine 25 mg tablet 25 mg PO Q6H PRN 05/28/17 [History Confirmed 05/28/17] vitamin B complex tablet 1 tab PO QDAY 05/28/17 [History Confirmed 05/28/17] PFSH Medical History Other and unspecified diseases of upper respiratory tract (Acute) Anemia (Chronic) Hypothyroid (Chronic) Malignant neoplasm of breast (Chronic) HARRISON (obstructive sleep apnea) (Chronic) Rheumatoid arthritis (Chronic) Sarcoidosis (Chronic) Surgical History H/O hernia repair (Resolved) H/O ligation of vein (Resolved) H/O thumb surgery (Resolved) H/O vaginal hysterectomy (Resolved) History of appendectomy (Resolved) History of carpal tunnel surgery (Resolved) History of gastric bypass (Resolved) History of modified radical mastectomy (Resolved) Hx of cholecystectomy (Resolved) Port-a-cath in place (Resolved) Family History Mother Diabetes Pancreatic cancer Brother Diabetes Hypertension Seasonal allergies Melanoma Brain cancer Tongue cancer Father Colon cancer Parkinson disease Sister Hypertension Seasonal allergies Uterine cancer Lung cancer Liver cancer Social History Smoking Status: Never smoker Review of Systems Const CONSTITUTIONAL: Positive night sweats and fatigue; negative anorexia, body ache, chills, daytime sleepiness, fever(s), oral thrush, stops breathing during sleep, weight loss, sleeping in chair, weight loss, weight gain, frequent colds, seasonal allergies, other, headache(s) or orthopnea EETM Ear Nose Throat Mouth: Positive hearing normal and dry mouth in morning; negative hard of hearing, hoarseness, change in vision, itchy eyes, eye pain, swallowing Difficulty, ear pain, nose bleed, headache(s), mouth pain, nasal congestion, nasal discharge, post nasal drip, sinus pain, sinus pressure, sore throat or other Cardio Cardiovascular: Negative chest pain, chest pain at rest, chest pain with activity, irregular heart rhythm, edema, shortness of breath when lying down, palpitations, murmur or other Resp Respiratory: Positive as per HPI; negative shortness of breath, pain with cough, wheezing, chest congestion, cough, chest tightness, pain on inspiration, inhalers, increase use of rescue inhalers, snoring, apnea or other Gastro Gastrointestional: Negative bloody stools, change in appetite, difficulty swallowing, reflux, hematemesis, melena stool, loose stool, constipation or other Genitourinary: Negative blood in urine, nocturia, pain with urination or other Musc Musculoskeletal: Negative body pain, back pain, neck pain or other Skin/Breast Skin/Breast: Negative dry skin, itching, rash, unusual bruising, breast lump or other Neuro Neurological: Negative restless legs, confusion, weakness or other Psych Psychocological: Positive abnormal sleep pattern and anxiety; negative thoughts of hurting self/others, hopelessness or other Lymph Lymphatic: Negative easy bleeding, easy bruising, swollen lymph nodes or other Exam Const Constitutional: Positive conversant, cooperative, in no acute respiratory distress, healthy appearing, well developed, well nourished, good hygiene and obese Head Head: Positive normocephalic and atraumatic; negative cyanosis of lips/distal nose, microcephalic or macrocephalic Eyes Eye: Positive clear conjunctiva; negative nystagmus or scleral abnormality Ears Ear: Positive hearing normal and external ears normal; negative hard of hearing Nose Nose: Positive external nose normal, septum normal and no nasal discharge; negative epistaxis or nasal polyp Mouth Mouth: Positive oral mucosae normal, no lesions, good dentition and crowded posterior oropharynx; negative post nasal drip, malodorous breath or oral thrush present Mallampati Score: III: Mallampati Score Neck Neck: Positive normal visual inspection, thick neck, full ROM, trachea midline and female neck greater than 37 cm (15 in); negative lymphadenopathy or JVD Chest Wall Chest: Positive normal inspection of the chest; negative increased A/P diameter, symmetric chest movement, crepitus or tenderness Resp lung sounds: Positive clear to auscultation, good air exchange and normal expiratory time; negative wheezes, rhonchi, rales, dullness to percussion, wheeze present on forced exhalation or use of accessory muscles Cardio Cardiac: Positive regular rate, regular rhythm, S1 normal, S2 normal and normal PMI; negative murmur, rub or gallop GI GI: Positive obese, normal to inspection and normal bowel sounds; negative distended or ascites Genitourinary: Positive deferred Musc Musculoskeletal: Positive ROM normal; negative using an assistive device for ambulation, kyphosis, scoliosis or steady gait Left foot is currently in a walking boot Skin Pulmonary Skin Exam: Positive intact; negative rash, lesion or ulcers Surgical site was not inspected Pulses Pulse: Yes radial pulses present Extremities Extremities: Yes capillary refill normal, No clubbing, No cyanosis, No edema, No stasis dermatitis Neuro Neurologic: Yes conversant, Yes no focal neuro deficits, Yes normal concentration, Yes understands questions, Yes cooperative, Yes normal cognition, Yes normal coordination Lymph Lymphatic: No lymphadenopathy Psych Appearance: Positive grossly normal Mental Status: Positive mental status grossly normal Mood: Positive congruent mood Affect: Positive normal affect Coding Level of Care Code Off vis,new,level 4 Diagnoses Sarcoidosis of lung D86.0 Rheumatoid arthritis involving multiple sites with positive rheumatoid factor M05.79 Rheumatoid arthritis location: multiple sites Rheumatoid factor presence: with rheumatoid factor HARRISON on CPAP G47.33; Z99.89 05/29/17 1510 <Electronically signed by Donnell Valdivia MD> Date Donnell Valdivia MD Cosigner Signature: Date (if applicable) CC: Elisa Baxter MD CNCO Observed: 05/26/2017 Status: COMPLETED Source: [place] 12:00 AM [facility] REPOSIT[facility] Letter Text Karina De Leon M.D. Orthopaedic and Rheumatologic [facility] ? Lower Extremity Trauma [address] [place] [address] [phone] Patient Name: Renae Elizondo : 1955 May 26, 2017 Renae Eilzondo continues to be under my care for her left foot. She had surgery performed on 02/17/17 and was seen for another post op visit on 05/21/17. She will still be off work for at least 6 more weeks. Her estimated return to work date was originally set for 08/18/17 which we will leave for now. She may or may not be able to return back before that date, however, please note that total recovery from this surgery is approximately 6-9 months. Attached is her surgical report and post op visits to date. Her next follow up is scheduled for 07/02/2017. Respectfully Submitted, Karina De Leon M.D. PROGRESS Observed: 05/22/2017 Status: COMPLETED Source: [place] 9:49 AM [facility] REPOSITORY HNO ID: [id number] Author: Karina De Leon Service: (none) Author Type: Physician Type: Progress Notes Filed: 05/22/2017 10:11 AM Note Text: May 22, 2017 HPI: Renae Elizondo is following up for TN fusion. Pain Descriptors: Duration: 3 mos Severity: mild Quality: dull ache Location: hindfoot Context: worse with dependence Modifying Factors: Improved with elevation Supporting Subjective Information Below: Estimated body mass index is 33.29 kg/(m2) as calculated from the following: Height as of 02/17/17: 157.5 cm (5' 2). Weight as of 02/17/17: 82.6 kg (182 lb). Past Medical History PAST MEDICAL HISTORY Diagnosis Date - Anemia - Hypothyroidism - Malignant neoplasm of breast (female), unspecified site - Obstructive sleep apnea - Other and unspecified diseases of upper respiratory tract - RA (rheumatoid arthritis) (HCC) - S/P gastric bypass - Sarcoidosis (HCC) Surgical History SURGICALHX@ Family History @[facility]@ Medications: Current Outpatient Prescriptions: rivaroxaban (XARELTO) 10 mg tablet Take 1 tablet by mouth once daily. hydroxychloroquine (PLAQUENIL) 200 mg tablet Take 1 tablet by mouth twice daily. diclofenac sodium (VOLTAREN) 1 % topical gel apply topically 4 grams to foot four times a day cholecalciferol (VITAMIN D-3) 2,000 unit tablet Take 2,000 Units by mouth once daily. DENOSUMAB (PROLIA SUBCUTANEOUS) Inject subcutaneously once every 6 months. leflunomide (ARAVA) 20 mg tablet Take 1 tablet by mouth once daily. celecoxib (CELEBREX) 200 mg capsule Take 200 mg by mouth as needed. Magnesium Oxide 500 mg tab Taking 250mg. Take two tablets by mouth once daily. acetaminophen (TYLENOL EXTRA STRENGTH) 500 mg tablet Take 500 mg by mouth every 8 hours as needed. CPAP CHIN STRAP, USED WITH CPAP DEVICE fluticasone (FLONASE) 50 mcg/actuation nasal spray Use 1 [place] in each nostril daily at bedtime. ferrous sulfate 325 mg (65 mg iron) tablet Take 325 mg by mouth three times daily with meals. ascorbic acid (VITAMIN C) 500 mg tablet Take 500 mg by mouth three times daily. CPAP AutoPAP 10-20 cmH2O, suitable mask, humidity, filters. Lifetime supplies. Dx: 327.23. Fax compliance rpt to [phone] in 4-6 weeks. cyclobenzaprine (FLEXERIL) 10 mg tablet levothyroxine (LEVOTHROID) 50 mcg tablet Take 50 mcg by mouth daily before breakfast. CLOBETASOL 0.05 % cream as directed gabapentin 300 mg capsule Take 300 mg by mouth three times daily. PROMETHAZINE 25 MG TAB Take one(1) tablet every four(4) to six(6) hours as needed for nausea. lorazepam(ATIVAN 1 MG TAB) takes 1/2 tab as needed fentanyl 50 mcg/hr TRANSDERM. PT72 Apply as directed. Change patch every 3 days. B COMPLEX 1 TAB Take one(1) tablet daily. MULTIVITAMIN,TX-MINERALS TAB 1 tab daily No current facility-administered medications for this visit. Allergies: Adhesive Tape (Rosins); Morphine; Nsaids (Non-Steroidal Anti-Inflammatory Drug); Vasotec [Enalapril Maleate] Review Of Systems GENERAL:Negative for malaise, significant weight loss and fever HEENT:Negative for frequent or significant headaches, significant changes in vision or vision problems, significant ear problems or hearing loss, nasal discharge or nose bleeds and sore throat, difficulty swallowing, mouth lesions NECK:Negative for lumps, goiter, pain and significant neck swelling RESPIRATORY: Negative for cough, wheezing and shortness of breath CARDIOVASCULAR: Negative for chest pain, leg swelling and palpitations GASTROINTESTINAL: Negative for abdominal discomfort, blood in stools or black stools and change in bowel habits GENITOURINARY: Negative for dysuria, frequency and incontinence MUSCULOSKELETAL: Negative for joint pain or swelling, back pain, and muscle pain. NEUROLOGIC:Negative for focal numbness or weakness, headaches and dizziness. SKIN:Negative for lesions, rash, and itching. PSYCHIATRIC: Negative for sleep disturbance, mood disorder and recent psychosocial stressors. HEMATOLOGIC/LYMPHATIC/IMMUNOLOGIC:Negative for prolonged bleeding, bruising easily, and swollen nodes. ENDOCRINE: Negative for cold or heat intolerance, polyuria, polydipsia and goiter. Physical Exam: Basic physical examination reveals the patient to be in no acute distress. The patient is alert and oriented. Head is atraumatic, normocephalic. Neck ROM grossly intact. Mucous membranes are moist. Eyes, ears, and nose are normal in appearance. Hearing is grossly intact. Breathing is unlabored with grossly normal chest motion. Limited Upper Extremity Exam: Shoulders with grossly intact ROM and strength, no obvious deformity. Elbows with grossly intact ROM and strength, no obvious deformity. Hand and wrist with grossly intact ROM and strength, no obvious deformity. Focused orthopaedic examination reveals the following: Healed incision Minimal swelling Good alignment Imaging: healed fusion Assessment and Plan: sp TN fusion Boot Partial WB in boot x 4 then WBAT in boot x 4 Return to clinic: 8 wks X-Ray's at next visit: Yes PCP: Elisa Baxter MD [address] [place] [address] [facility] [address] FELLOW / RESIDENT: No fellow or resident assisted in this office visit. At least 50% of the duration of this visit was spent performing direct [id number] counseling. Karina De Leon MD CNOV Observed: 05/21/2017 Status: COMPLETED Source: [place] 11:50 AM [facility] REPOSITORY Office Visit (ORFTMN) CARORENAE L ([id number]) 1955 F Date Time Provider Department 05/21/17 11:50 AM KARINA DE LEON During your visit today, we recorded the following information about you: Karina De Leon MD 05/22/2017 10:11 AM Signed May 22, 2017 HPI: Renae Mukherjee Elizondo is following up for TN fusion. Pain Descriptors: Duration: 3 mos Severity: mild Quality: dull ache Location: hindfoot Context: worse with dependence Modifying Factors: Improved with elevation Supporting Subjective Information Below: Estimated body mass index is 33.29 kg/(m2) as calculated from the following: Height as of 02/17/17: 157.5 cm (5' 2ANDquot;). Weight as of 02/17/17: 82.6 kg (182 lb). Past Medical History PAST MEDICAL HISTORY Diagnosis Date - Anemia - Hypothyroidism - Malignant neoplasm of breast (female), unspecified site - Obstructive sleep apnea - Other and unspecified diseases of upper respiratory tract - RA (rheumatoid arthritis) (HCC) - S/P gastric bypass - Sarcoidosis (HCC) Surgical History SURGICALHX@ Family History @[facility]@ Medications: Current Outpatient Prescriptions: rivaroxaban (XARELTO) 10 mg tablet Take 1 tablet by mouth once daily. hydroxychloroquine (PLAQUENIL) 200 mg tablet Take 1 tablet by mouth twice daily. diclofenac sodium (VOLTAREN) 1 % topical gel apply topically 4 grams to foot four times a day cholecalciferol (VITAMIN D-3) 2,000 unit tablet Take 2,000 Units by mouth once daily. DENOSUMAB (PROLIA SUBCUTANEOUS) Inject subcutaneously once every 6 months. leflunomide (ARAVA) 20 mg tablet Take 1 tablet by mouth once daily. celecoxib (CELEBREX) 200 mg capsule Take 200 mg by mouth as needed. Magnesium Oxide 500 mg tab Taking 250mg. Take two tablets by mouth once daily. acetaminophen (TYLENOL EXTRA STRENGTH) 500 mg tablet Take 500 mg by mouth every 8 hours as needed. CPAP CHIN STRAP, USED WITH CPAP DEVICE fluticasone (FLONASE) 50 mcg/actuation nasal spray Use 1 [place] in each nostril daily at bedtime. ferrous sulfate 325 mg (65 mg iron) tablet Take 325 mg by mouth three times daily with meals. ascorbic acid (VITAMIN C) 500 mg tablet Take 500 mg by mouth three times daily. CPAP AutoPAP 10-20 cmH2O, suitable mask, humidity, filters. Lifetime supplies. Dx: 327.23. Fax compliance rpt to [phone] in 4-6 weeks. cyclobenzaprine (FLEXERIL) 10 mg tablet levothyroxine (LEVOTHROID) 50 mcg tablet Take 50 mcg by mouth daily before breakfast. CLOBETASOL 0.05 % cream as directed gabapentin 300 mg capsule Take 300 mg by mouth three times daily. PROMETHAZINE 25 MG TAB Take one(1) tablet every four(4) to six(6) hours as needed for nausea. lorazepam(ATIVAN 1 MG TAB) takes 1/2 tab as needed fentanyl 50 mcg/hr TRANSDERM. PT72 Apply as directed. Change patch every 3 days. B COMPLEX 1 TAB Take one(1) tablet daily. MULTIVITAMIN,TX-MINERALS TAB 1 tab daily No current facility-administered medications for this visit. Allergies: Adhesive Tape (Rosins); Morphine; Nsaids (Non-Steroidal Anti-Inflammatory Drug); Vasotec [Enalapril Maleate] Review Of Systems GENERAL:Negative for malaise, significant weight loss and fever HEENT:Negative for frequent or significant headaches, significant changes in vision or vision problems, significant ear problems or hearing loss, nasal discharge or nose bleeds and sore throat, difficulty swallowing, mouth lesions NECK:Negative for lumps, goiter, pain and significant neck swelling RESPIRATORY: Negative for cough, wheezing and shortness of breath CARDIOVASCULAR: Negative for chest pain, leg swelling and palpitations GASTROINTESTINAL: Negative for abdominal discomfort, blood in stools or black stools and change in bowel habits GENITOURINARY: Negative for dysuria, frequency and incontinence MUSCULOSKELETAL: Negative for joint pain or swelling, back pain, and muscle pain. NEUROLOGIC:Negative for focal numbness or weakness, headaches and dizziness. SKIN:Negative for lesions, rash, and itching. PSYCHIATRIC: Negative for sleep disturbance, mood disorder and recent psychosocial stressors. HEMATOLOGIC/LYMPHATIC/IMMUNOLOGIC:Negative for prolonged bleeding, bruising easily, and swollen nodes. ENDOCRINE: Negative for cold or heat intolerance, polyuria, polydipsia and goiter. Physical Exam: Basic physical examination reveals the patient to be in no acute distress. The patient is alert and oriented. Head is atraumatic, normocephalic. Neck ROM grossly intact. Mucous membranes are moist. Eyes, ears, and nose are normal in appearance. Hearing is grossly intact. Breathing is unlabored with grossly normal chest motion. Limited Upper Extremity Exam: Shoulders with grossly intact ROM and strength, no obvious deformity. Elbows with grossly intact ROM and strength, no obvious deformity. Hand and wrist with grossly intact ROM and strength, no obvious deformity. Focused orthopaedic examination reveals the following: Healed incision Minimal swelling Good alignment Imaging: healed fusion Assessment and Plan: sp TN fusion Boot Partial WB in boot x 4 then WBAT in boot x 4 Return to clinic: 8 wks X-Ray's at next visit: Yes PCP: Elisa Baxter MD [address] [address] FELLOW / RESIDENT: No fellow or resident assisted in this office visit. At least 50% of the duration of this visit was spent performing direct [id number] counseling. Karina De Leon MD Referring Provider: KARINA DE LEON [[id number]] Allergies As of Date: 05/21/2017 Noted Allergy Reaction ADHESIVE TAPE (ROSINS) 02/13/2006 2 - Rash Comments: tore skin/blisters MORPHINE 02/05/2006 5 - Intolerance Comments: vomiting, shaking. NSAIDS (NON-STEROIDAL ANTI-INFLAM*10/05/2014 11 - Vomiting VASOTEC (ENALAPRIL MALEATE) 09/08/2008 Comments: nausea/doesn't work Date Reviewed: 05/09/2017 Reviewed by: Zayra (Rn) EVER Carbone - Fully Assessed Primary Visit Diagnosis:Arthritis, midfoot [M19.079] Prescriptions as of 05/21/2017 Sig: RIVAROXABAN 10 MG TABLET Take 1 tablet by mouth once d* HYDROXYCHLOROQUINE 200 MG TAB* Take 1 tablet by mouth twice * DICLOFENAC 1 % TOPICAL GEL apply topically 4 grams to fo* CHOLECALCIFEROL (VITAMIN D3) * Take 2,000 Units by mouth onc* PROLIA SUBCUTANEOUS Inject subcutaneously once e* LEFLUNOMIDE 20 MG TABLET Take 1 tablet by mouth once d* CELECOXIB 200 MG CAPSULE Take 200 mg by mouth as neede* MAGNESIUM OXIDE 500 MG TABLET Taking 250mg. Take two tablet* ACETAMINOPHEN 500 MG TABLET Take 500 mg by mouth every 8 * CPAP CHIN STRAP, USED WITH CPAP DE* FLUTICASONE 50 MCG/ACTUATION * Use 1 [place] in each nostril d* FERROUS SULFATE 325 MG (65 MG* Take 325 mg by mouth three ti* ASCORBIC ACID (VITAMIN C) 500* Take 500 mg by mouth three ti* CPAP AutoPAP 10-20 cmH2O, suitable* CYCLOBENZAPRINE 10 MG TABLET LEVOTHYROXINE 50 MCG TABLET Take 50 mcg by mouth daily be* CLOBETASOL 0.05 % TOPICAL CRE* as directed * GABAPENTIN 300 MG CAPSULE Take 300 mg by mouth three ti* * PROMETHAZINE 25 MG TABLET Take one(1) tablet every four* * ATIVAN 1 MG TABLET takes 1/2 tab as needed * FENTANYL 50 MCG/HR TRANSDERMA* Apply as directed. Change pat* * B COMPLEX 1 TABLET Take one(1) tablet daily. * MULTIVITAMIN,TX-MINERALS TABL* 1 tab daily Problem List As Of Date 05/21/2017 Noted Resolved LUMP OR MASS IN BREAST [N63.0] INVALID FOR* MALIG NEOPLASM BREAST-CENTRAL [C50.119] INVALID FOR* SEROMA, POST OP [GLS4058] INVALID FOR*09/30/2016 ANEMIA NOS [D64.9] INVALID FOR* Sacroiliac joint pain [M53.3] INVALID FOR* Benign neoplasm of skin of trunk, except scrotu*INVALID FOR* HARRISON (obstructive sleep apnea) AHI 13, but with *INVALID FOR* More... RLS (restless legs syndrome) [G25.81] INVALID FOR* Low ferritin level [R79.0] INVALID FOR* Sarcoidosis (HCC) [D86.9] INVALID FOR* Nasal congestion, nocturnal. 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 Encounter Status:Closed by KARINA DE LEON MD on 05/22/17 PROGRESS Observed: 05/21/2017 Status: COMPLETED Source: [place] 10:51 AM [facility] REPOSITORY O ID: [id number] Author: Sunni Horvath Service: (none) Author Type: (none) Type: Progress Notes Filed: 05/21/2017 10:51 AM Note Text: Radiology Service Progress Note PATIENT NAME: Renae Elizondo DATE OF SERVICE: May 21, 2017 TIME: 10:51 AM PATIENT IDENTITY VERIFICATION COMPLETED USING TWO (2) METHODS: Patient confirmed name verbally and Date of . PATIENT GENDER DATA: Female. status: : No status: NO. PATIENT RELEVANT IMPLANT DATA REVIEWED: Yes RADIOLOGY DEPARTMENT: General X-ray: Exam(s) Completed: Lower Extremity X-Ray(s): Foot, Left: PERIPHERAL IV DATA: Not applicable SIGNED BY: Sunni Fermin Rt May 21, 2017 10:51 AM XR FOOT 3V AP/LAT/OBL Observed: 05/21/2017 Status: F Source: [facility] 10:50 AM [facility] REPOSITORY * * *Final Report* * * DATE OF EXAM: May 21 2017 10:50AM AOX [id number] - XR FOOT 3V AP/LAT/OBL LT / PROCEDURE REASON: multiple diagnoses * * * * Physician Interpretation * * * * EXAMINATION: XR FOOT 3V AP/LAT/OBL LT HISTORY: left foot post op f/u Primary osteoarthritis, unspecified ankle and foot Post-traumatic osteoarthritis, left ankle and foot . TECHNIQUE: XR FOOT 3V AP/LAT/OBL LT Laterality: LEFT Number of different views (projections): 3 COMPARISON: 04/11/2017 RESULT: Again seen are post surgical findings status post talonavicular arthrodesis using a dorsal surgical plate with screws and separate partially threaded lag screws across the joint. The hardware is all intact. The joint line appears to be well apposed. There appears to be some particulate bone graft material along the dorsal aspect of the joint which demonstrates progression of maturation. Uncertain degree of bone bridging at this time. No other change. No other significant abnormality. IMPRESSION: EXPECTED POSTSURGICAL FINDINGS 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 Transcribe Date/Time: May 21 2017 5:11P Dictated by : VIRGILIO MORSE MD This examination was interpreted and the report reviewed and electronically signed by: VIRGILIO MORSE MD on May 21 2017 5:12PM EST [id number] PROGRESS Observed: 05/09/2017 Status: COMPLETED Source: [place] 10:37 AM [facility] REPOSITORY HNO ID: [id number] Author: Zayra Carbone RN Service: (none) Author Type: Registered Nurse Type: Progress Notes Filed: 05/09/2017 10:37 AM Note Text: See nursing note. Zayra Carbone RN CNNURSE Observed: 05/09/2017 Status: COMPLETED Source: [place] 9:45 AM [facility] REPOSITORY Nurse Visit (ORFTMN) RENAE ELIZONDO ([id number]) 1955 F Date Time Provider Department 05/09/17 9:45 AM ZAYRA CARBONERN) ORFTMAguilar During your visit today, we recorded the following information about you: Zayra Carbone RN, RN 05/09/2017 10:37 AM Signed Under the direction of Dr. De Leon and supervision of Natalia Urias PA-C, Renae Yaz Elizondo is seen today 11 weeks post operative from Her: 1. Left talonavicular arthrodesis. 2. Left achilles lengthening. 3. Left iliac crest bone graft small done on . cast removed and incision(s) examined. Incisions healed. Into cast in neutral. Renae Elizondo will continue to take Xarelto 10 mg daily and elevate above heart level. Return to clinic in [address] De Leon for x-ray left foot 3 views NWB out of cast. EVER Dillon RN, RN 05/09/2017 10:37 AM Signed See nursing note. Zayra Carbone RN Referring Provider: KARINA DE LEON [[id number]] Allergies As of Date: 05/09/2017 Noted Allergy Reaction ADHESIVE TAPE (ROSINS) 02/13/2006 2 - Rash Comments: tore skin/blisters MORPHINE 02/05/2006 5 - Intolerance Comments: vomiting, shaking. NSAIDS (NON-STEROIDAL ANTI-INFLAM*10/05/2014 11 - Vomiting VASOTEC (ENALAPRIL MALEATE) 09/08/2008 Comments: nausea/doesn't work Date Reviewed: 05/09/2017 Reviewed by: Zayra NolascoRn) EVER Carbone - Fully Assessed Reason for Visit: Post Op [174] Cmt: 1. Left talonavicular arthrodesis. Visit Diagnoses:Arthritis, midfoot [M19.079] Post-operative pain [G89.18] Order(s):HYDROcodone-acetaminophen (NORCO) 5-325 mg per tabletTake 1-2 tablets by mouth every 6 hours as needed for up to 7 days. In accordance to [facility] guidelines, this serves as official documentation that this patient had a major orthopaedic surgery in the past 3 months. It is appropriate for this patient to be prescribed narcotic medication because of these scenarios extending greater than the allotted MED requirement or 7 day limitDisp: 30 tabletRfl: 0 Prescriptions as of 05/09/2017 Sig: HYDROCODONE 5 MG-ACETAMINOPHE* Take 1-2 tablets by mouth heather* RIVAROXABAN 10 MG TABLET Take 1 tablet by mouth once d* HYDROXYCHLOROQUINE 200 MG TAB* Take 1 tablet by mouth twice * DICLOFENAC 1 % TOPICAL GEL apply topically 4 grams to fo* CHOLECALCIFEROL (VITAMIN D3) * Take 2,000 Units by mouth onc* PROLIA SUBCUTANEOUS Inject subcutaneously once e* LEFLUNOMIDE 20 MG TABLET Take 1 tablet by mouth once d* CELECOXIB 200 MG CAPSULE Take 200 mg by mouth as neede* MAGNESIUM OXIDE 500 MG TABLET Taking 250mg. Take two tablet* ACETAMINOPHEN 500 MG TABLET Take 500 mg by mouth every 8 * CPAP CHIN STRAP, USED WITH CPAP DE* FLUTICASONE 50 MCG/ACTUATION * Use 1 [place] in each nostril d* FERROUS SULFATE 325 MG (65 MG* Take 325 mg by mouth three ti* ASCORBIC ACID (VITAMIN C) 500* Take 500 mg by mouth three ti* CPAP AutoPAP 10-20 cmH2O, suitable* CYCLOBENZAPRINE 10 MG TABLET LEVOTHYROXINE 50 MCG TABLET Take 50 mcg by mouth daily be* CLOBETASOL 0.05 % TOPICAL CRE* as directed * GABAPENTIN 300 MG CAPSULE Take 300 mg by mouth three ti* * PROMETHAZINE 25 MG TABLET Take one(1) tablet every four* * ATIVAN 1 MG TABLET takes 1/2 tab as needed * FENTANYL 50 MCG/HR TRANSDERMA* Apply as directed. Change pat* * B COMPLEX 1 TABLET Take one(1) tablet daily. * MULTIVITAMIN,TX-MINERALS TABL* 1 tab daily Problem List As Of Date 05/09/2017 Noted Resolved LUMP OR MASS IN BREAST [N63.0] INVALID FOR* MALIG NEOPLASM BREAST-CENTRAL [C50.119] INVALID FOR* SEROMA, POST OP [[id number]] INVALID FOR*09/30/2016 ANEMIA NOS [D64.9] INVALID FOR* Sacroiliac joint pain [M53.3] INVALID FOR* Benign neoplasm of skin of trunk, except scrotu*INVALID FOR* HARRISON (obstructive sleep apnea) AHI 13, but with *INVALID FOR* More... RLS (restless legs syndrome) [G25.81] INVALID FOR* Low ferritin level [R79.0] INVALID FOR* Sarcoidosis (HCC) [D86.9] INVALID FOR* Nasal congestion, nocturnal. 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 Visit Notes: >> Zayra Boland) EVER Carbone FriMay 09, 2017 10:32 AM Status: Signed Under the direction of Dr. De Leon and supervision of Natalia Urias PA-C, Renae Elizondo is seen today 11 weeks post operative from Her: 1. Left talonavicular arthrodesis. 2. Left achilles lengthening. 3. Left iliac crest bone graft small done on . cast removed and incision(s) examined. Incisions healed. Into cast in neutral. Renae Elizondo will continue to take Xarelto 10 mg daily and elevate above heart level. Return to clinic in [address] De Leon for x-ray left foot 3 views NWB out of cast. Zayra Carbone RN Prescriptions ordered this encounter Disp Refills Start End HYDROCODONE 5 MG-ACETAMINOPHEN 325 M* 30 t* 0 05/09/2017 05/16/2017 Class: Print RX Route: ORAL Sig: Take 1-2 tablets by mouth every 6 hours as needed for up to 7 days. In accordance to [facility] guidelines, this serves as official documentation that this patient had a major orthopaedic surgery in the past 3 months. It is appropriate for this patient to be prescribed narcotic medication because of these scenarios extending greater than the allotted MED requirement or 7 day limit Medications Discontinued During This Encounter HYDROcodone-acetaminophen (NORCO) 5-* 56 t* 0 03/19/2017 05/09/2017 Class: Print RX Cmt: EXPLANATION OF NARCOTIC PRESCRIPTION: This patient under went major orthopaedic surgery within the past 90 days and requires greater then 30 morphine equivalent dose (MED) per day for adequate pain relief. Al Zayas PA-C Route: ORAL Sig: Take 1-2 tablets by mouth every 6 hours as needed for up to 7 days. Disc: Reason for discontinue is not on file. Encounter Status:Closed by ZAYRA CARBONE on 05/09/17 CBC Collected: 04/28/2017 Status: F Source: [place] 12:10 PM [facility] REPOSITORY TYPE CODE TESTS RESULT OUT OF REFERENCE UNITS RANGE LAB WBC 3.70-11.00 k/uL WBC 4.84 LAB RBC 3.90-5.20 m/uL RBC 3.99 LAB HGB 11.5-15.5 g/dL Hemoglobin 12.8 LAB HCT 36.0-46.0 % Hematocrit 41.0 LAB MCV 80.0-100.0 fL MCV High 102.8 LAB MCH 26.0-34.0 pG MCH 32.1 LAB MCHC 30.5-36.0 g/dL MCHC 31.2 LAB RDWCV 11.5-15.0 % RDW-CV 12.5 LAB PLTCT 150-400 k/uL Platelet Count 216 LAB MPV 9.0-12.7 fL MPV 10.1 LAB ABSNUC <0.01 k/uL Absolute nRBC <0.01 Performed By: #### CBC, CMP #### [facility] [address] [place], [place] [address] COMP METABOLIC PANEL Collected: 04/28/2017 Status: F Source: [place] 12:10 PM [facility] REPOSITORY TYPE CODE TESTS RESULT OUT OF REFERENCE UNITS RANGE LAB TP 6.3-8.0 g/dL Protein, Total 6.8 LAB ALB 3.9-4.9 g/dL Albumin 3.9 LAB CA 8.5-10.2 mg/dL Calcium, Total 8.6 LAB TBIL 0.2-1.3 mg/dL Bilirubin, Total 0.4 LAB ALKP 32-117 U/L Alkaline Phosphatase 69 LAB AST 13-35 U/L AST 28 LAB GLU 74-99 mg/dL Glucose 79 Result Comment: The [place] [employer] (ADA) provides guidance for cutoff values for fasting glucose and random glucose. The ADA defines fasting as no caloric intake for at least 8 hours. Fas ting plasma glucose results between 100 to 125 mg/dL indicate increased risk for diabetes (prediabetes). Fasting plasma glucose results greater than or equal to 126 mg/dL meet the criteria for diagnosis of diabetes. In the absence of unequivocal hyperglycemia, results should be confirmed by repeat testing. In a patient with classic symptoms of hyperglycemia or hyperglycemic crisis, random plasma glucose results greater than or equal to 200 mg/dL meet the criteria for diagnosis of diabetes. Reference: Standards of Medical Care in Diabetes 2016, [place] [employer]. Diabetes Care. 2016.39(Suppl 1). LAB BUN 7-21 mg/dL BUN 14 LAB CRET 0.58-0.96 mg/dL Creatinine 0.59 LAB NA 136-144 mmol/L Sodium 142 LAB K 3.7-5.1 mmol/L Potassium 4.4 LAB CL 97-105 mmol/L Chloride 104 LAB CO2 22-30 mmol/L CO2 Low 20 LAB AGAP 9-18 mmol/L Anion Gap 18 LAB ALT 7-38 U/L ALT 25 LAB GFRAA eGFR- Amer. >60 LAB GFRNAA . eGFR-All Other Races >60 Result Comment: eGFR (Estimated GFR) Units of measure: mL/min/1.73 meters squared eGFR is derived from the reexpressed MDRD Study equation using the following parameters: serum creatinine, age, gender and race. The creatinine assay has been calibrated to be traceable to IDMS. An eGFR <60 mL/min/1.73m2 for >3 months is consistent with chronic kidney disease. Refer to KDOQI guidelines for clinical interpretation. In patients with unstable renal function, e.g. those with acute kidney injury, the eGFR may not accurately reflect actual GFR. Performed By: #### CBC, CMP #### [facility] [address] [place] [place] [id number] PROGRESS Observed: 04/11/2017 Status: COMPLETED Source: [place] 11:19 AM [facility] [place] REPOSITORY HNO ID: [id number] Author: Zayra (Rn) EVER Carbone Service: (none) Author Type: Registered Nurse Type: Progress Notes Filed: 04/11/2017 11:20 AM Note Text: See nursing note. Zayra Carbone RN XR FOOT 3V AP/LAT/OBL Observed: 04/11/2017 Status: F Source: [facility] 10:44 AM [facility] REPOSITORY * * *Final Report* * * DATE OF EXAM: Apr 11 2017 10:44AM AOX 5336 - XR FOOT 3V AP/LAT/OBL LT / PROCEDURE REASON: Primary osteoarthritis, unspecified ankle and foot * * * * Physician Interpretation * * * * HISTORY: Primary osteoarthritis, unspecified ankle and foot TECHNOLOGIST PROVIDED HISTORY (if applicable): left foot post op 2 month f/u TECHNIQUE: XR FOOT 3V AP/LAT/OBL LT RESULT: Left foot 3 views nonweightbearing, compared to 01/08/2017. Soft tissue swelling is noted in this patient who has had interval talonavicular arthrodesis 2 medial screws and a lateral plate with 2 screws. Bone grafting is noted. The hardware is intact without signs of its loosening or failure. Mature bony fusion is not visualized. She is osteopenic. There is hallux valgus with bunion and degenerative change. Small calcaneal spurs. IMPRESSION: STATUS POST LEFT TALONAVICULAR ARTHRODESIS. 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: PSCB Transcribe Date/Time: Apr 11 2017 3:36P Dictated by : LIO HERRERA MD This examination was interpreted and the report reviewed and electronically signed by: LIO HERRERA MD on Apr 11 2017 3:41PM EST [id number] PROGRESS Observed: 04/11/2017 Status: COMPLETED Source: [place] 10:43 AM [facility] REPOSITORY HNO ID: [id number] Author: Sunni Fermin Rt Service: (none) Author Type: (none) Type: Progress Notes Filed: 04/11/2017 10:43 AM Note Text: Radiology Service Progress Note PATIENT NAME: Renae Elizondo DATE OF SERVICE: April 11, 2017 TIME: 10:43 AM PATIENT IDENTITY VERIFICATION COMPLETED USING TWO (2) METHODS: Patient confirmed name verbally and Date of . PATIENT GENDER DATA: Female. status: : No status: NO. PATIENT RELEVANT IMPLANT DATA REVIEWED: Yes RADIOLOGY DEPARTMENT: General X-ray: Exam(s) Completed: Lower Extremity X-Ray(s): Foot, Left: PERIPHERAL IV DATA: Not applicable SIGNED BY: Sunni Fermin Rt April 11, 2017 10:43 AM ALLERGIES ALLERGIES DATE TYPE / NAME / CODE REACTION SEVERITY SOURCE CODE 01/07/2018 Drug midazolam Anaphylaxis Unknown [place] Allergy/41 HCl/[id number]( [facility] [id number]( RXNORM) [facility]) Repository 01/07/2018 Drug NSAIDS Other Unknown [place] Allergy/41 (Non-Steroidal [facility] [id number]( Anti-Inflamma/F [facility]) [id number](RXNOR Repository M) 01/07/2018 Drug morphine/T04841 Nausea/Vom/Diarrhea Unknown [place] Allergy/41 1545(RXNORM) Community 6448364([facility]) Repository 01/07/2018 Drug codeine/D622845 Unknown Unknown [place] Allergy/41 550(RXNORM) Community 4697732([facility]) Repository 01/07/2018 Drug doxycycline/F00 Nausea [place] Allergy/41 8946378(RXNORM) Community 4008504([facility]) Repository 01/07/2018 Drug enalaprilat/F00 Other - [place] Allergy/41 2244264(RXNORM) lightheadedness Community 1156206([facility]) Repository 10/05/2014 Drug NSAIDS Vomiting [place] Class/4195 (NON-STEROIDAL Clinic Main 16535([facility] ANTI-INFLAMMATO [facility] CT) RY DRUG) Repository 09/08/2008 DRUG ENALAPRIL [place] INGREDI/41 [place] Clinic Main 7234938([facility]) Repository 02/13/2006 Chemical/4 ADHESIVE TAPE RASH [place] [id number]([facility] [place] Rep[facility] 02/05/2006 DRUG MORPHINE INTOLERANCE [place] INGREDI/41 [facility] Main 6779370(SN [place] OMED CT) Repository ENCOUNTERS ENCOUNTERS ADMIT/DISCHARGE ACCOUNT ADMITTING ENCOUNTER LOCATION SOURCE NUMBER CLASS 03/13/2018/03/13/19 [id number] Ambulatory [place] 19 [facility] Other [place] Repository 03/05/2018/03/09/19 [id number] Ambulatory [place] 19 [facility] Main [place] Repository 03/04/2018/03/05/19 [id number] Ambulatory [place] 19 [facility] Main [place] Repository 02/25/2018/02/27/20 [id number] Ambulatory [place] 18 [facility] Main [place] Repository 02/18/2018/02/19/20 [id number] Ambulatory [place] 18 [facility] Main [place] Repository 02/18/2018/02/20/20 [id number] Ambulatory [place] 18 [facility] Main [place] Repository 02/13/2018/02/14/20 [id number] Ambulatory [place] 18 [facility] Main [place] Repository 02/11/2018 [id number] Ambulatory [facility] ing:OPBD Repository 02/11/2018/02/13/20 [id number] Ambulatory [place] 18 [facility] Main [place] Repository 02/09/2018/02/10/20 [id number] Ambulatory [place] 18 [facility] Main [place] Repository 02/09/2018/02/14/20 [id number] Ambulatory [place] 18 [facility] Main [place] Repository 02/06/2018/02/10/20 [id number] Ambulatory [place] 18 [facility] Main [place] Repository 02/03/2018/02/05/20 [id number] Ambulatory [place] 18 [facility] Main [place] Repository 01/29/2018/01/30/20 [id number] Ambulatory [place] 18 [facility] Main [place] Repository 01/29/2018/01/30/20 [id number] Ambulatory [place] 18 [facility] Main [place] Repository 01/27/2018/01/29/20 [id number] Ambulatory [place] 18 [facility] Main [place] Repository 01/20/2018/01/22/20 [id number] Ambulatory [place] 18 [facility] Main [place] Repository 01/16/2018/01/20/20 [id number] Ambulatory [place] 18 [facility] Main [place] Repository 01/09/2018/01/14/20 [id number] Ambulatory [place] 18 [facility] Main [place] Repository 01/07/2018/01/08/20 [id number] Ambulatory BMSBuilding:B [place] 18 [place] Repository 01/02/2018/01/06/20 [id number] Ambulatory [place] 18 [facility] Main [place] Repository 12/19/2017/12/23/19 [id number] Ambulatory [place] 18 [facility] Main [place] Repository 12/17/2017/12/19/19 [id number] Ambulatory [place] 18 [facility] Main [place] Repository 12/08/2017 [id number] Ambulatory [place] [facility] ing:MTLAB Repository 12/01/2017/12/03/19 [id number] Ambulatory [place] 18 [facility] Main [place] Repository 11/28/2017/11/29/19 [id number] Ambulatory [place] 18 [facility] Main [place] Repository 11/19/2017/11/21/19 [id number] Ambulatory [place] 18 [facility] Main [place] Repository 11/14/2017/11/18/19 [id number] Ambulatory [place] 18 [facility] Main [place] Repository 11/12/2017/11/14/19 [id number] Ambulatory [place] 18 [facility] Main [place] Repository 11/10/2017/11/13/19 [id number] Ambulatory [place] 18 [facility] Main [place] Repository 11/10/2017/11/11/19 [id number] Ambulatory [place] 18 [facility] Main [place] Repository 10/31/2017/11/01/19 [id number] Ambulatory [place] 18 [facility] Main [place] Repository 10/27/2017/10/28/19 [id number] Ambulatory [place] 18 [facility] Main [place] Repository 10/24/2017/10/28/19 [id number] Ambulatory [facility] 18 [facility] Main [place] Repository 10/20/2017/10/23/19 [id number] Ambulatory [place] 18 [facility] Main [place] Repository 10/17/2017/10/22/19 [id number] Ambulatory [facility] 18 [facility] Main [place] Repository 10/16/2017/10/17/19 [id number] Ambulatory [facility] 18 [facility] Main [place] Repository 10/16/2017/11/01/19 [id number] Ambulatory [facility] 18 [facility] Main [place] Repository 10/13/2017/10/23/19 [id number] Ambulatory [place] 18 [facility] Main [place] Repository 10/10/2017/10/14/19 [id number] Ambulatory [place] 18 [facility] Main [place] Repository 10/08/2017/10/10/19 [id number] Ambulatory [facility] 18 [facility] Main [place] Repository 10/08/2017/10/09/19 [id number] Ambulatory [facility] 18 [facility] Main [place] Repository 10/06/2017/10/08/19 [id number] Ambulatory [facility] 18 [facility] Main [place] Repository 09/29/2017/10/01/19 [id number] Ambulatory [place] 18 [facility] Main [place] Repository 09/26/2017/09/30/19 [id number] Ambulatory [place] 18 [facility] Main [place] Repository 09/22/2017/09/24/19 [id number] Ambulatory [place] 18 [facility] Main [place] Repository 09/19/2017/09/23/19 [id number] Ambulatory [facility] 18 [facility] Main [place] Repository 09/15/2017/09/23/19 [id number] Ambulatory [place] 18 [facility] Main [place] Repository 09/15/2017/09/17/19 [id number] Ambulatory [place] 18 [facility] Main [place] Repository 09/11/2017/09/16/19 [id number] Ambulatory [place] 18 [facility] Main [place] Repository 09/05/2017 [id number] MICHELLE, Ambulatory [facility] Other [place] Repository 09/04/2017/09/09/19 [id number] Ambulatory [place] 18 [facility] Main [place] Repository 09/02/2017 [id number] Ambulatory BMSBuilding:Deena [place] Repository 09/01/2017/09/05/19 [id number] Ambulatory [place] 18 [facility] Main [place] Repository 08/29/2017/08/30/19 [id number] Ambulatory [place] 18 [facility] Main [place] Repository 08/28/2017/09/02/19 [id number] Ambulatory [place] 18 [facility] Main [place] Repository 08/25/2017/08/26/19 [id number] Ambulatory [place] 18 [facility] Main [place] Repository 08/25/2017/08/28/19 [id number] Ambulatory [place] 18 [facility] Main [place] Repository 08/25/2017/08/30/19 [id number] Ambulatory [place] 18 [facility] Main [place] Repository 08/25/2017/08/26/19 [id number] Ambulatory [place] 18 [facility] Main [place] Repository 08/18/2017/08/20/19 [id number] Ambulatory [place] 18 [facility] Main [place] Repository 08/06/2017/08/08/19 [id number] Ambulatory [place] 18 [facility] Main [place] Repository 08/04/2017/08/06/19 [id number] Ambulatory [address] Main [place] Repository 08/01/2017 [id number] Ambulatory [facility] [place] Repository 08/01/2017 [id number] Ambulatory [facility] ing:MFPLAB Repository 07/30/2017/08/01/19 [id number] Ambulatory [address] [place] Repository 07/24/2017 [id number] Ambulatory [facility] ing:OPBI Repository 07/23/2017/07/25/19 [id number] Ambulatory [address] Repository 07/21/2017/07/23/19 [id number] Ambulatory [address] Repository 07/17/2017/07/18/19 [id number] Ambulatory [address] Repository 07/17/2017/07/22/19 [id number] Ambulatory [address] Repository 07/14/2017/07/16/19 [id number] Ambulatory [address] Repository 07/07/2017/07/09/19 [id number] Ambulatory [address] Repository 07/04/2017 [id number] Ambulatory [facility] ing:PSN Repository 07/04/2017 [id number] Ambulatory BMSBuilding:[facility] Repository 07/02/2017/07/04/19 [id number] Ambulatory [address] [place] Repository 07/02/2017/07/03/19 [id number] Ambulatory [address] [place] Repository 07/01/2017/07/02/19 [id number] Ambulatory [address] Repository 05/29/2017/05/30/19 [id number] Ambulatory BMSBuilding:B [place] 18 [place] Repository 05/21/2017/05/24/19 [id number] Ambulatory [address] Repository 05/21/2017/05/24/19 [id number] Ambulatory [address] Repository 05/21/2017/05/22/19 [id number] Ambulatory [address] [place] Repository 05/09/2017/05/10/19 [id number] Ambulatory [address] Repository 05/09/2017/05/10/19 [id number] Ambulatory [address] Repository 04/28/2017/04/28/19 [id number] Ambulatory [address] Repository 04/11/2017/04/11/19 [id number] Ambulatory [address] Repository 04/11/2017/04/11/19 [id number] Ambulatory [address] Repository 04/11/2017/04/11/19 [id number] Ambulatory [address] Repository PAYERS PAYERS ENCOUNTER GUARANTOR PAYER SUBSCRIBER SOURCE 02/11/2018 RENAE L [id number] Primary RENAE L [place] Insurance:CIGNAPolicy STARRDOB: [place], [place] Number: [id number] Hospital [address]67[address]Dyt: (330) [id number] Repository [phone] () Date:9118-65-99PZ [address], [place] [address]XV: 02/11/2018 Secondary NOT GIVENUNK [place] Insurance:SELF PAY [facility] [place] Number: Effective Repository Date:2018-01-09 01/07/2018 RENAE L [id number] Primary RENAE L [place] Insurance:CIGNAPolicy [facility] [place] Number: [id number] Hospital [address]Ebt: (330) [id number] Repository [phone] () Date:5808-04-41VW [address]CRSQFAGW[address]K, [place] [address]PZ: 01/07/2018 Secondary NOT GIVENUNK [place] Insurance:SELF PAY [facility] [place] Number: Effective Repository Date:2017-12-30 12/08/2017 RENAE L [id number] Primary RENAE L [place] Insurance:CIGNAPolicy STARRDOB: [place], [place] Number: [id number] Hospital [address]Lee: (330) [id number] Repository [phone] () Date:4974-84-04AI [address]RZEFTOQWYCF, [place] [address]WW: 12/08/2017 Secondary NOT GIVENUNK [place] Insurance:SELF PAY [facility] [place] Number: Effective Repository Date:2017-12-08 09/02/2017 SCOTT Molina [id number] Primary RENAE L [place] Insurance:CIGNAPolicy STARRDOB: [facility] [place] Number: [id number] Hospital [address]Dku: (330 [id number] Repository [phone] () Date:2125-86-70GX [address]QG[address], [place] [address]EX: 09/02/2017 Secondary NOT GIVENUNK [place] Insurance:SELF PAY [facility] Number: Effective Repository Date:2017-08-22 08/01/2017 RENAE L [id number] Primary RENAE L [place] Insurance:CIGNAPolicy [facility]ARRD[facility] [place] Number: [id number] Hospital [address]Ica: (330) [id number] Repository [phone] () Date:0069-86-76DY [address]JJRREFALZIB, [place] [address]RI: 08/01/2017 Secondary NOT GIVENUNK [place] Insurance:SELF PAY [facility] [place] Number: Effective Repository Date:2017-08-01 07/24/2017 RENAE L [id number] Primary RENAE L [place] Insurance:CIGNAPolicy STARRDOB: [facility] Number: [id number] Hospital [address]Cag: (330) [id number] Repository [phone] () Date:8960-26-68PS [address]YOTQ[place], [place] [address]EH: 07/24/2017 Secondary NOT GIVENUNK [place] Insurance:SELF PAY [facility] Number: Effective Repository Date:2017-07-07 07/04/2017 RENAE L [id number] Primary RENAE L [place] Insurance:CIGNAPolicy STARRDOB: [facility] [place] Number: [id number] Hospital [address]Srp: (330) [id number] Repository [phone] (HP) Date:6523-69-65QK [address]VJKOPVVSSFF, [place] [address]EE: 07/04/2017 Secondary NOT GIVENUNK [place] Insurance:SELF PAY [facility] [place] Number: Effective Repository Date:2017-05-29 07/04/2017 RENAE L [id number] Primary [facility]E L [facility] Insurance:CIGNAPolicy [place]DOB: [place] Number: [id number] Hospital [address]Wmd: (330) [id number] Repository [phone] (HP) Date:4866-45-31SG [address]CIJ[place], [place] [address]JY: 07/04/2017 Secondary NOT GIVENUNK [place] Insurance:SELF PAY [facility] [place] Number: Effective Repository Date:2017-07-04 05/29/2017 ERVIL R [id number] [facility]CIGNAPolicy STARRDOB: [place] Number: [id number] Hospital [address]Ivo: (330) [id number] Repository [phone] (HP) Date:4124-00-77XJ [address]EUJWFSPGBTK, [place] [address]JI: 05/29/2017 Secondary NOT GIVENUNK [place] Insurance:SELF PAY [facility], [place] Number: Effective Repository Date:2017-03-18
== END ==
PROVIDERS: Family Provider Family Medicine; PCP Family Medicine; Referring Provider Family Medicine; Visit Provider Family Medicine
DX: Z78.0 Asymptomatic menopausal state (principal)
CPT/HCPCS: 77080

== ENCOUNTER → 2018-07-02 | Outpatient (CLI) | payer OTHER, SELFPAY ==
[2018-01-07 07:50] VITALS: BMI 34.4
--- NOTE | 2018-07-02 15:00 | PFTCOMP ---
COMPLETE PULMONARY FUNCTION TEST INTERPRETATION Brief HPI: Patient is a 63 year old female, currently under the care of myself, who presents to [facility] for complete pulmonary function tests secondary to diagnosis of HARRISON. Respiratory therapist reports good effort and reproducible results. Interpretation: Forced expiration spirometry shows no large airways obstructive ventilatory defect with an FEV1 of 88% predicted. There is no significant bronchodilator response by strict ATS criteria. Spirograms are of good quality and plateau normally. The respiratory flow volume loop shows a normal pattern. Lung volumes by body plethysmography show total lung capacity at the lower limit of normal at 3.29 L, 81% predicted. All other lung volumes are reduced symmetrically. Diffusion capacity by carbon monoxide is normal at 67% predicted. The airway resistance is normal. No previous pulmonary function tests were available for review. Impression: These pulmonary function tests are grossly within normal limits. Patient's lung volumes are at the lower limit of normal, so early interstitial lung disease cannot be excluded.
== END | disposition home or self-care (01) ==
LOC: PSN 08:12
PROVIDERS: Family Provider Family Medicine; PCP Family Medicine; Referring Provider Internal Medicine Critical Care Medicine; Visit Provider Internal Medicine Critical Care Medicine
DX: D86.0 Sarcoidosis of lung (principal); G47.33 Obstructive sleep apnea (adult) (pediatric); Z99.89 Dependence on other enabling machines and devices
CPT/HCPCS: 94060; 94726; 94729

== ENCOUNTER → 2018-07-16 | Outpatient (CLI) | payer OTHER, SELFPAY ==
[2018-07-16 10:28] VITALS: BMI 36.6
== END | disposition home or self-care (01) ==
LOC: LABSPEC 12:12
PROVIDERS: Family Provider Family Medicine; PCP Family Medicine; Referring Provider Nurse Practitioner Acute Care; Visit Provider Nurse Practitioner Acute Care
DX: R05 Cough (principal)
CPT/HCPCS: 87070; 87205

== ENCOUNTER → 2018-08-28 | Outpatient (CLI) | payer OTHER, SELFPAY ==
[2018-07-16 10:28] VITALS: BMI 36.6
--- NOTE | 2018-08-28 12:24 | BI_ITS ---
MAMMOGRAPHY - UNILATERAL SCREENING: LEFT BREAST REASON FOR EXAM: Female, 63 years old. Routine annual screening examination (unilateral). PERTINENT HISTORY: Personal history of breast cancer. Prior right mastectomy. TECHNIQUE: Digital unilateral breast brannon (3D mammographic acquisition) in the CC and MLO projections. 2-D mediolateral oblique (MLO) and craniocaudad (CC) views of both breasts were obtained. CAD: Full Field Digital Mammography with Computer Added Detection was performed. COMPARISON: Comparison is made with prior study dated July 24, 2017 and May 15, 2016. FINDINGS: Breast Composition: There are scattered areas of fibroglandular density. There are no dominant masses or suspicious calcifications. No other significant abnormalities are identified. There has been no significant change since the prior study. BI/SCREEN MAMM (CAD) W/BRANNON UNI L IMPRESSION: Stable unilateral screening mammogram. Yearly follow-up mammogram recommended. (A) ASSESSMENT CATEGORY: BIRADS Category 1: Negative. A letter regarding these results will be sent to the patient by the facility within 30 days. Approximately 10% of breast cancers are not detected by mammography. A normal mammogram should not delay biopsy of a clinically suspicious abnormality. [id number] Electronically Signed: Luis Miguel Gustafson, at 9:40 EDT , Service support ,
== END | disposition home or self-care (01) ==
LOC: OPBI 12:22
PROVIDERS: Family Provider Family Medicine; PCP Family Medicine; Referring Provider Family Medicine; Visit Provider Family Medicine
DX: Z01.419 Encounter for gynecological examination (general) (routine) without abnormal findings (principal); Z12.31 Encounter for screening mammogram for malignant neoplasm of breast
CPT/HCPCS: 77061; 77063; 77067; G0279

== ENCOUNTER → 2018-10-19 | Outpatient (CLI) | payer OTHER, SELFPAY ==
[2018-07-16 10:28] VITALS: BMI 36.6
--- NOTE | 2018-10-19 10:58 | RAD_ITS ---
STUDY: X-RAY - ABDOMEN/PELVIS REASON FOR EXAM: Female, 63 years old. Diarrhea, right-sided abdominal pain and discomfort. TECHNIQUE: Upright and supine KUB, 4 images. COMPARISON: X-ray abdomen 09/07/2015 FINDINGS: Surgical clips left epigastrium, left midabdomen, surgical staple line left upper quadrant. Grossly normal size and position of the solid organs of the abdomen. Scattered gas within nondilated small and large bowel. No significant stool burden of large bowel. No evidence of free intraperitoneal air. Low lumbar degenerative disc disease and facet arthropathy L4-L5, L5-S1. RAD/Abd Inc Decub and/or Erect IMPRESSION: No acute abdominopelvic process is evident. Electronically Signed: Jasbir Eckert MD at 11:57 EDT Tel , Service support ,
== END | disposition home or self-care (01) ==
LOC: MTLAB 10:56
PROVIDERS: Family Provider Family Medicine; PCP Family Medicine; Referring Provider Family Medicine; Visit Provider Family Medicine
DX: R19.7 Diarrhea, unspecified (principal)
CPT/HCPCS: 74019

== ENCOUNTER → 2018-10-20 | Outpatient (CLI) | payer OTHER, SELFPAY ==
[2018-07-16 10:28] VITALS: BMI 36.6
== END | disposition home or self-care (01) ==
PROVIDERS: Family Provider Family Medicine; PCP Family Medicine; Referring Provider Family Medicine; Visit Provider Family Medicine
DX: R19.7 Diarrhea, unspecified (principal)
CPT/HCPCS: 87177; 87209; 87493; 87506

== ENCOUNTER → 2019-07-14 13:10 | Outpatient (CLI) | payer OTHER, SELFPAY ==
[2019-01-18 10:10] VITALS: BMI 36.6
--- NOTE | 2019-07-14 15:39 | PFTCOMP ---
COMPLETE PULMONARY FUNCTION TEST INTERPRETATION Brief HPI: Patient is a 64 year old female, currently under the care of myself, who presents to [facility] for complete pulmonary function tests secondary to diagnosis of sarcoidosis. Respiratory therapist reports good effort and reproducible results. Interpretation: Forced expiration spirometry shows no large airways obstructive ventilatory defect with an FEV1 of 78% predicted. There is no significant bronchodilator response by strict ATS criteria. Spirograms are of good quality and plateau normally. The respiratory flow volume loop shows a normal pattern. Lung volumes by body plethysmography show a decreased total lung capacity at 2.93 L, 69% predicted. All other lung volumes are reduced symmetrically. Diffusion capacity by carbon monoxide is at the lower limit of normal at 67% predicted. The airway resistance is normal. Compared to previous pulmonary function tests from 07/02/2018, there has been a continued reduction in total lung capacity by 11%, but DLCO is improved. Impression: Mild restrictive ventilatory defect with progression of restriction compared to previous studies. Consider chest imaging if not done recently.
== END ==
PROVIDERS: Family Provider Family Medicine; PCP Family Medicine; Referring Provider Internal Medicine Critical Care Medicine; Visit Provider Internal Medicine Critical Care Medicine
DX: D86.0 Sarcoidosis of lung (principal); M05.79 Rheumatoid arthritis with rheumatoid factor of multiple sites without organ or systems involvement
CPT/HCPCS: 94060; 94726; 94729

== ENCOUNTER → 2019-08-31 11:31 | Outpatient (CLI) | payer OTHER, SELFPAY ==
[2019-01-18 10:10] VITALS: BMI 36.6
[2019-08-31 16:06] LABS: Hemoglobin A1c 4.7 % (3.8-5.6)
[2019-08-31 17:22] LABS: AST(SGOT) 24 U/L (15-37); Alanine Aminotransfer ALT/SGPT 26 U/L (13-56); Anion Gap 8 (5-15); BUN 16 mg/dL (7-18); BUN/Creat Ratio 18.8 RATIO (10-20); Calcium,Total 9.2 mg/dL (8.5-10.1); Chloride 101 mmol/L (98-107); Cholesterol 195 mg/dL (200); Creatinine, Serum 0.85 mg/dL (0.55-1.02); EST Glomerular Filtration Rate 72 mL/min (>60); Est Glom Filt Rate - Afr Amer 87 mL/min (>60); Glucose 104 mg/dL (74-106); High Density Lipoprotein 89 mg/dL; Potassium 4.3 mmol/L (3.5-5.1); Sodium Level 138 mmol/L (136-145); Triglycerides 103 mg/dL; Very Low Density Lipoprotein 21 mg/dL (5-40)
[2019-09-01 07:24] LABS: SARS-COV-2 TOTAL ABS Nonreactive (Nonreactive)
== END ==
PROVIDERS: PCP Family Medicine; Visit Provider Family Medicine
DX: E11.9 Type 2 diabetes mellitus without complications (principal); I10 Essential (primary) hypertension; E78.5 Hyperlipidemia, unspecified; Z20.828 Contact with and (suspected) exposure to other viral communicable diseases
CPT/HCPCS: 80048; 80061; 83036; 84450; 84460; 86769; G2023

== ENCOUNTER → 2019-12-15 08:35 | Outpatient (CLI) | payer MEDICARE, SELFPAY ==
[2019-01-18 10:10] VITALS: BMI 36.6
--- NOTE | 2019-12-15 08:39 | CT_ITS ---
STUDY: CT CHEST WITH CONTRAST REASON FOR EXAM: Female, 64 years old. Pulmonary nodule follow-up history of sarcoidosis breast cancer RADIATION DOSAGE (If Supplied By Facility): CTDIvol = ( 15.62 ) mGy, DLP = ( 598.24 ) mGycm TECHNIQUE: Transaxial imaging was performed following intravenous administration of IV 100mL Isovue-300. Individualized dose optimization techniques were used for this CT. COMPARISON: Jul 05 2015, September 16 2014, May 06 2011, 29 April 2011 FINDINGS: There are stable right upper lobe scars and scattered benign calcified and noncalcified granulomata, unchanged since 2011, all measuring less than 5 mm. Airways are patent. Pleural surfaces are intact. There is mediastinal lymphadenopathy due to patient''s known diagnosis of sarcoidosis, improved since priors. There is hiatal hernia. There is mild cardiac megaly with enlargement of all 4 chambers. Aorta is normal. Pulmonary artery is mildly enlarged. There is right mastectomy with small postsurgical seroma, stable since 2011. Osseous structures are intact and osteopenic. CT/Chest WITH Contrast IMPRESSION: 1. Stable exam for 8 years. 2. No change since 2011 3. Pulmonary scars and granulomata. 4. Sarcoidosis with mediastinal lymph nodes. 5. Right mastectomy. Electronically Signed: Pura Thompson, at 14:36 EDT Tel , Service support ,
[2019-12-15 08:51] LABS: CREATININE FINGERSTICK 0.8 mg/dL (0.55-1.02); EGFR FINGERSTICK > 60.0000 mL/min (>60)
== END ==
PROVIDERS: PCP Family Medicine; Referring Provider Family Medicine; Visit Provider Family Medicine
DX: R91.1 Solitary pulmonary nodule (principal)
CPT/HCPCS: 71260; Q9967

== ENCOUNTER → 2020-03-30 10:24 | Outpatient (CLI) | payer MEDICARE, SELFPAY ==
[2019-01-18 10:10] VITALS: BMI 36.6
== END ==
PROVIDERS: PCP Family Medicine; Referring Provider Family Medicine; Visit Provider Family Medicine
DX: M81.0 Age-related osteoporosis without current pathological fracture (principal)
CPT/HCPCS: C9803

== ENCOUNTER → 2020-03-30 10:27 | Outpatient (CLI) | payer MEDICARE, SELFPAY ==
[2019-01-18 10:10] VITALS: BMI 36.6
== END ==
PROVIDERS: PCP Family Medicine; Referring Provider Nurse Practitioner Acute Care; Visit Provider Nurse Practitioner Acute Care
DX: U07.1 COVID-19 (principal)
CPT/HCPCS: 87635; C9803; U0005; U0003

== ENCOUNTER → 2020-04-25 14:52 | Outpatient (CLI) | payer MEDICARE, SELFPAY ==
[2019-01-18 10:10] VITALS: BMI 36.6
--- NOTE | 2020-04-25 14:53 | BI_ITS ---
MAMMOGRAPHY - UNILATERAL SCREENING: LEFT BREAST REASON FOR EXAM: Female, 64 years old. Routine annual screening examination (unilateral). PERTINENT HISTORY: Personal history of breast cancer. Prior right mastectomy with radiation and chemotherapy. TECHNIQUE: Digital unilateral breast brannon (3D mammographic acquisition) in the CC and MLO projections. 2-D mediolateral oblique (MLO) and craniocaudad (CC) views of both breasts were obtained. CAD: Full Field Digital Mammography with Computer Added Detection was performed. COMPARISON: Comparison is made with prior examination dated 08/28/2018 and 07/24/2017. FINDINGS: Breast Composition: There are scattered areas of fibroglandular density. There are no dominant masses or suspicious calcifications. No other significant abnormalities are identified. There has been no significant change since the prior study. BI/SCREEN MAMM (CAD) W/BRANNON UNI L IMPRESSION: Stable unilateral screening mammogram. Yearly follow-up mammogram recommended. (A) ASSESSMENT CATEGORY: BIRADS Category 1: Negative. A letter regarding these results will be sent to the patient by the facility within 30 days. Approximately 10% of breast cancers are not detected by mammography. A normal mammogram should not delay biopsy of a clinically suspicious abnormality. [id number] Electronically Signed: Luis Miguel Gustafson MD at 8:12 EST , Service support ,
--- NOTE | 2020-04-25 15:05 | BD_ITS ---
STUDY: DUAL ENERGY X-RAY ABSORPTIOMETRY / DXA REASON FOR EXAM: Female, 64 years old. 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 COMPARISON: Comparison is made with prior study dated 02/11/2018. FINDINGS: Lumbar Spine (L1-L4): g/cm2 (0.979) / T-score (-1.8) / Z-score (-0.3) Findings are suggestive of osteopenia with a moderate fracture risk. Left Femur Total: g/cm2 (0.764) / T-score (-1.9) / Z-score (-0.8) Left Femoral Neck: g/cm2 (0.756) / T-score (-2.0) / Z-score (-0.6) Right Femur Total: g/cm2 (0.695) / T-score (-2.5) / Z-score (-1.3) Right Femoral Neck: g/cm2 (0.670) / T-score (-2.7) / Z-score (-1.2) The T-Scores on the most recent prior examination were: Lumbar Spine (L1-L4): There has been worsening of bone density since the previous examination. Left Femur Total: which represents a worsening of 1.8%. Right Femur Total: which represents a worsening of 12.1%. BD/Dexa Bone Density Study IMPRESSION: The patient is considered osteoporotic as outlined below according to World Juan Organization (WHO) criteria with a high fracture risk. There has been worsening of bone density since the previous examination. Reference Information: The T-score is the number of standard deviations above or below the standard which is normal for young adults at their peak bone mineral density. The World Health Organization (WHO) interprets the T-scores as follows: Above -1 Normal bone density Between -1 and -2.5 Osteopenia Equal to / or below -2.5 Osteoporosis As a practical clinical guideline, osteopenia may be graded as follows: Mild -1 through -1.5 Moderate -1.6 through -2.0 Severe -2.1 through -2.4 The Z-score is the number of standard deviations above or below age-matched controls. A Z-score of less than -1.5 would be considered abnormal. References: 1. NIH Osteoporosis and Related Bone Diseases www osteo.org 2. International Society for Clinical Densitometry www iscd.org 3. National Osteoporosis Foundation www nof.org Electronically Signed: Luis Miguel Gustafson MD at 14:29 EST , Service support ,
== END ==
PROVIDERS: PCP Family Medicine; Referring Provider Family Medicine; Visit Provider Family Medicine
DX: Z12.31 Encounter for screening mammogram for malignant neoplasm of breast (principal); M81.0 Age-related osteoporosis without current pathological fracture
CPT/HCPCS: 77063; 77067; 77080

== ENCOUNTER → 2020-06-02 11:05 | Outpatient (CLI) | payer MEDICARE, SELFPAY ==
[2020-05-24 10:49] VITALS: BMI 43.6
--- NOTE | 2020-06-02 11:11 | ECHOCS_ITS ---
Reason For Study: HYPERTENSION Procedure This was a 2D Doppler, Color Flow transthoracic echocardiogram. The study was technically difficult. Due to body habitus. Contrast injection was performed. Exam performed in department. Left Ventricle Normal LV size. Left ventricular systolic function is normal. The estimated ejection fraction is 60 %. Stage 1 diastolic dysfunction. No regional wall motion abnormalities noted. Right Ventricle Normal RV size. Normal systolic function. Atria The left atrium is moderately enlarged. Normal right atrium. Mitral Valve There is mild to moderate mitral annular calcification. Mild (1+) eccentric mitral valve insufficiency. Tricuspid Valve Normal tricuspid valve. Mild (1+) tricuspid valve insufficiency. Pulmonary artery systolic pressure is 40 mmHg. Aortic Valve Trisinus/trileaflet aortic valve. Pulmonic Valve Normal pulmonic valve. Great Vessels Normal aortic root. The pulmonary artery is normal size. Normal inferior vena cava. Pericardium/Pleural No pericardial effusion. Medication 22 gauge I.V. with prn adaptor inserted into left arm. Diluted definity 2.0ml given slow IV push to enhance endocardial definition. MMode/2D Measurements & Calculations LVIDd: 4.6 cm IVSd: 0.86 cm Ao root diam: 2.8 cm LVIDs: 3.3 cm LVPWd: 0.83 cm RVDd: 3.1 cm FS: 29.2 % LAV(MOD-bp): 102.1 ml LVAd ap4: 26.8 cm2 SV(MOD-sp4): 48.3 ml LAV(MOD-bp) Indexed: 50.8 ml/m2 EDV(MOD-sp4): 75.1 ml LAV(MOD-sp2): 102.4 ml EDV(sp4-el): 79.2 ml LAV(MOD-sp4): 105.2 ml LVAs ap4: 15.1 cm2 ESV(MOD-sp4): 26.7 ml ESV(sp4-el): 28.1 ml EF(MOD-sp4): 64.4 % EF(sp4-el): 64.6 % SV(sp4-el): 51.1 ml LA A4 area: 28.7 cm2 LA dimension(2D): 3.9 cm RA A4 area: 11.2 cm2 Time Measurements MV dec time: 0.21 sec Doppler Measurements & Calculations MV E max edil: 127.9 cm/sec Lat Peak E' Edil: 8.6 cm/sec Med Peak E' Edil: 7.9 cm/sec MV A max edil: 159.4 cm/sec E/E' lat: 14.9 E/E' med: 16.2 MV E/A: 0.80 MV V2 max: 162.2 cm/sec MV P1/2t max edil: 133.5 cm/sec Ao V2 max: 157.8 cm/sec MV max P.5 mmHg MV P1/2t: 73.0 msec Ao max P.0 mmHg MV V2 mean: 111.4 cm/sec MV dec slope: 535.7 cm/sec2 MV mean P.4 mmHg MVA(P1/2t): 3.0 cm2 MV V2 VTI: 40.2 cm LV V1 max: 108.0 cm/sec PA V2 max: 110.3 cm/sec TR max edil: 303.1 cm/sec LV V1 max P.7 mmHg TR max P.7 mmHg MV P1/2t-pr_phl: 44.1 msec ECHO/Echo Complete W/ Contrast Interpretation Summary Normal LV size. Left ventricular systolic function is normal. The estimated ejection fraction is 60 %. Stage 1 diastolic dysfunction. The left atrium is moderately enlarged. Contrast injection was performed. Ordering Physician: Neftali Mcclure Referring Physician: Elisa Baxter Performed By: Meredith Apodaca, JANUSZ, RVT
== END ==
PROVIDERS: PCP Family Medicine; Referring Provider Internal Medicine Cardiovascular Disease; Visit Provider Internal Medicine Cardiovascular Disease
DX: I10 Essential (primary) hypertension (principal); I34.0 Nonrheumatic mitral (valve) insufficiency
CPT/HCPCS: 93306; Q9957; A4216; C8929

== ENCOUNTER → 2020-07-26 16:16 | Outpatient (CLI) | payer MEDICARE, SELFPAY ==
[2020-05-24 10:49] VITALS: BMI 43.6
--- NOTE | 2020-07-26 16:25 | RAD_ITS ---
STUDY: X-RAY - LEFT HAND REASON FOR EXAM: Female, 65 years old. Swelling of the fingers and hand. Pain in fifth digit after hitting it against an object. TECHNIQUE: 3 view(s) of the hand. COMPARISON: None. FINDINGS: Normal radiocarpal articulation. Normal distal radioulnar joint. Normal visualized carpal bones. There is degenerative joint disease of the scaphotrapezium / trapezoid articulation. The remainder of the carpal articulations are normal. There is degenerative arthrosis of the carpometacarpal (CMC) articulation of the thumb. Normal second through fifth carpometacarpal joints. Normal metacarpi. Normal metacarpophalangeal joint of the thumb. Normal interphalangeal joint of the thumb. Normal proximal and distal phalanges of the thumb. Normal metacarpophalangeal joints of the second through fifth fingers. There is surgical fusion of the distal second and third interphalangeal joints. There is joint space narrowing at the remainder of the interphalangeal joints with slight medial subluxation of the third proximal interphalangeal joint. There is no visualized fracture or dislocation. The soft tissue structures are unremarkable. RAD/Hand Min 3 Views IMPRESSION: 1. No acute fracture or dislocation. 2. Surgical changes of the second and third digits. 3. Degenerative changes of the hand and wrist. Electronically Signed: Sanjiv Gonzalez DO at 16:52 EDT Tel [phone], Service support ,
== END ==
PROVIDERS: PCP Family Medicine; Referring Provider Nurse Practitioner Family; Visit Provider Nurse Practitioner Family
DX: M79.89 Other specified soft tissue disorders (principal)
CPT/HCPCS: 73130

== ENCOUNTER 2020-12-04 15:00 | Outpatient (RCR) | payer MEDICARE, SELFPAY ==
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
--- NOTE | 2021-03-22 09:42 | HP.OT.NRP ---
NEHAL ELIZONDO was seen in my office for initial evaluation on 11/15/20. The following Plan of Care was established for this patient: Initial Frequency: 1-2x /Week Initial Duration: 4-6 Weeks Plan: cont with OT POC Anticipated Interventions: A/AAROM/PROM, Strengthening, Triggerpoint Release, Modalities, Orthoses, Joint Protection/Energy Conservation, ADL Training, Education re Diagnosis This patient was last seen in our office 12/04/20. Pertinent comments regarding their Occupational therapy will appear below: pt was seen for 4 OT visits following wrist fx. pt was making gains with her recovery and becoming more ind. with ADls. Due to time lapse in services pt d/c. At this point I will be discontinuing this patient from occupational therapy. I would be happy to see this patient again in the future if found appropriate by the physician. Thank you! Elif Carreno, OTR/L, CHT
== END 2020-12-04 19:00 | disposition home or self-care (01) ==
LOC: OT 15:00
PROVIDERS: PCP Family Medicine
DX: S52.551D Other extraarticular fracture of lower end of right radius, subsequent encounter for closed fracture with routine healing (principal)
CPT/HCPCS: 97110; 97140; 97166; 97530

== ENCOUNTER 2021-03-22 11:10 | Day surgery (SDC) | payer MEDICARE, SELFPAY ==
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
[2021-03-22] VITALS (7 sets, daily range): BP systolic 117–144; BP diastolic 59–87; PULSE 72–81; RESP 15–17; TEMP 36.2–36.3; O2SAT 94–100; BMI 40.8
[2021-03-22] MEDS: Lactated Ringers 1,000 ML 15 ML IV (12:22)
--- NOTE | 2021-03-22 13:03 | OP.COLON_ITS ---
Patient Name: Renae Carpenter Procedure Date: 03/22/2021 12:12 PM Date of : 1955 Age: 65 Procedure: Colonoscopy Indications: Screening for colorectal malignant neoplasm Providers: Julissa Chan MD Medicines: See the Anesthesia note for documentation of the administered medications Patient Profile: Refer to note in patient chart for documentation of history and physical. Last Colonoscopy: more than 10 years ago. Complications: No immediate complications. Procedure: Pre-Anesthesia Assessment: - see anesthesia note After I obtained informed consent, the scope was passed under direct vision. Throughout the procedure, the patient's blood pressure, pulse, and oxygen saturations were monitored continuously. The Colonoscope was introduced through the anus and advanced to the cecum, identified by the appendiceal orifice, ileocecal valve and palpation. The colonoscopy was performed without difficulty. The patient tolerated the procedure well. The quality of the bowel preparation was poor, there was still retained fecal material. Therefore lavage and aspiration was done to clear the fecal material. This took some time. The tapia were cleared adequately. Scope In: 12:30:05 PM Scope Withdrawal Time 0 hours 10 minutes 1 second Scope Out: 12:58:35 PM Total Procedure Duration Time 0 hours 28 minutes 30 seconds Findings: The perianal and digital rectal examinations were normal. Non-bleeding internal hemorrhoids were found. Impression: - Non-bleeding internal hemorrhoids. - No specimens collected. Recommendation: - Repeat colonoscopy in 10 years for screening purposes. - Return to primary care physician PRN. - Continue present medications. Procedure Code(s): --- Professional --- G0121, Colorectal cancer screening; colonoscopy on individual not meeting criteria for high risk Diagnosis Code(s): --- Professional --- K64.8, Other hemorrhoids Z12.11, Encounter for screening for malignant neoplasm of colon CPT copyright 2017 [employer]. All rights reserved. The codes documented in this report are preliminary and upon outpatient coder review may be revised to meet current compliance requirements. MD Julissa Somers MD 03/22/2021 1:03:10 PM This report has been signed electronically. Number of Addenda: 0 Note Initiated On: 03/22/2021 12:12 PM
--- NOTE | 2021-03-22 13:04 | OP.CCLET_ITS ---
03/22/2021 Elisa Baxter [address] [place] [address] Re : Colonoscopy procedure for Renae Carpenter Dear Dr. Baxter This procedure was performed on March. My impressions and recommendations are as follows: Impressions : - Non-bleeding internal hemorrhoids. - No specimens collected. Recommendations : - Repeat colonoscopy in 10 years for screening purposes. - Return to primary care physician PRN. - Continue present medications. My findings are described in the full procedure note, which is enclosed. If I can be of further assistance, please feel free to contact me at Doctor phone number(s): , Work: . Sincerely, MD Julissa Somers MD 03/22/2021 1:03:10 PM This report has been signed electronically.
== END 2021-03-22 23:59 | disposition home or self-care (01) ==
LOC: EN 11:13 → AC 11:18
PROVIDERS: PCP Family Medicine; Referring Provider Family Medicine; Visit Provider Surgery
PROC: 0DJD8ZZ Inspection of Lower Intestinal Tract, Via Natural or Artificial Opening Endoscopic (ICD-10-PCS; CPT 45378; principal; 2021-03-22 12:25)
DX: Z12.11 Encounter for screening for malignant neoplasm of colon (principal); M06.9 Rheumatoid arthritis, unspecified; Z68.41 Body mass index [BMI] 40.0-44.9, adult; E66.01 Morbid (severe) obesity due to excess calories; D86.0 Sarcoidosis of lung; K64.8 Other hemorrhoids; E03.9 Hypothyroidism, unspecified; Z85.3 Personal history of malignant neoplasm of breast; G47.33 Obstructive sleep apnea (adult) (pediatric); Z98.84 Bariatric surgery status; D64.9 Anemia, unspecified; Q43.8 Other specified congenital malformations of intestine; Z83.71 Family history of colonic polyps; Z86.16 Personal history of COVID-19; G89.29 Other chronic pain; Z86.718 Personal history of other venous thrombosis and embolism; Z79.899 Other long term (current) drug therapy; G25.81 Restless legs syndrome; Z90.49 Acquired absence of other specified parts of digestive tract; Z78.0 Asymptomatic menopausal state
CPT/HCPCS: J7120; J2405

== ENCOUNTER 2021-04-25 17:59 | Outpatient (CLI) | payer MEDICARE, SELFPAY ==
--- NOTE | 2021-04-25 18:11 | CT_ITS ---
EXAMINATION : Head CT w/out contrast HISTORY : S/P SUBARCHNOID HEMORRHAGE COMPARISON : None. TECHNIQUE : Multiple contiguous axial images were obtained from the skull base to the vertex without intravenous contrast. A radiation dose optimization technique was used for this scan. FINDINGS : The ventricles and sulci are normal in size. There is no evidence for acute intracranial hemorrhage, mass effect, or midline shift. There is no extra-axial fluid collection. There is normal padilla-white differentiation, without CT evidence of acute ischemia or infarct. The skull base and calvarium are unremarkable. The orbits are unremarkable. The paranasal sinuses are clear. The mastoid air cells are well-aerated. The soft tissues are unremarkable. CT/Brain/Head without Contrast IMPRESSION: No acute intracranial abnormality. Electronically Signed: Bo Cruz MD at 21:37 EST ,
== END 2021-04-25 23:59 | disposition home or self-care (01) ==
LOC: CT 17:59
PROVIDERS: PCP Family Medicine; Visit Provider Family Medicine
DX: S06.6X9A Traumatic subarachnoid hemorrhage with loss of consciousness of unspecified duration, initial encounter (principal)
CPT/HCPCS: 70450

== ENCOUNTER → 2021-10-16 | Outpatient (CLI) | payer MEDICARE, SELFPAY ==
--- NOTE | 2021-10-16 13:00 | BI_ITS ---
MAMMOGRAPHY - UNILATERAL SCREENING: LEFT BREAST REASON FOR EXAM: Female, 66 years old. Routine annual screening examination (unilateral). PERTINENT HISTORY: Non-contributory. TECHNIQUE: Digital examination. Mediolateral oblique (MLO) and craniocaudad (CC) views of the breast were obtained. CAD: CAD was performed on this study. COMPARISON: 04/25/2020 FINDINGS: Breast Composition: There are scattered areas of fibroglandular density. There are no dominant masses or suspicious calcifications. No other significant abnormalities are identified. BI/SCREEN MAMM (CAD) W/BRANNON UNI L IMPRESSION: Stable left screening mammogram. ASSESSMENT CATEGORY: BIRADS Category 1: Negative. A letter regarding these results will be sent to the patient by the facility within 30 days. FOLLOW UP RECOMMENDATION: Yearly follow up mammogram recommended. (A) [id number] Approximately 10% of breast cancers are not detected by mammography. A normal mammogram should not delay biopsy of a clinically suspicious abnormality. [id number] Electronically Signed: Jasbir Atkins MD at 16:48 EDT ,
== END | disposition home or self-care (01) ==
LOC: OPBI 12:58
PROVIDERS: PCP Family Medicine; Visit Provider Nurse Practitioner Family
DX: Z12.31 Encounter for screening mammogram for malignant neoplasm of breast (principal)
CPT/HCPCS: 77063; 77067

== ENCOUNTER → 2022-01-07 | Outpatient (CLI) | payer MEDICARE, SELFPAY ==
[2022-01-07 18:02] LABS: T4 Total, Thyroxin 9.5 ug/dL (4.8-13.9); Thyroid Stim Hormone (TSH) 1.88 uIU/mL (0.358-3.74)
== END | disposition home or self-care (01) ==
PROVIDERS: PCP Family Medicine; Referring Provider Family Medicine; Visit Provider Family Medicine
DX: E03.9 Hypothyroidism, unspecified (principal)
CPT/HCPCS: 36415; 84436; 84443

== ENCOUNTER → 2022-03-18 | Outpatient (CLI) | payer MEDICARE, SELFPAY ==
--- NOTE | 2022-03-18 15:40 | RAD_ITS ---
INDICATION: hand pain EXAMINATION/TECHNIQUE: X-RAY - RIGHT XR Hand Min 3 Views 3 VIEWS COMPARISON: Left hand July 26, 2020. FINDINGS: SOFT TISSUES: Mild diffuse soft tissue edema throughout the hand.. No subcutaneous emphysema or radiopaque soft tissue foreign body. BONES/JOINTS: No acute fracture or dislocation.. Prior arthrodesis and internal fixation of the second and third distal interphalangeal joints and fifth proximal interphalangeal joint without perihardware history of hardware failure. Diffuse joint space narrowing, subchondral sclerosis, mild osteophyte formation throughout the digits and radial aspect of the wrist, most severe at the fourth and fifth distal interphalangeal joint.. No aggressive osseous lesion or focal erosive changes. RAD/Hand Min 3 Views IMPRESSION: Nonspecific diffuse soft tissue edema without acute osseous finding. Prior interphalangeal joint arthrodesis and internal fixation without evidence of hardware failure. Diffuse osteoarthritis, most prominent at the fourth and fifth distal interphalangeal joints. Electronically Signed: Devang Salinas MD at 3:40 EST ,
== END | disposition home or self-care (01) ==
PROVIDERS: PCP Family Medicine; Referring Provider Family Medicine; Visit Provider Family Medicine
DX: M19.041 Primary osteoarthritis, right hand (principal)
CPT/HCPCS: 73130

== ENCOUNTER → 2022-07-09 | Outpatient (CLI) | payer MEDICARE, SELFPAY | END | disposition home or self-care (01) | LOC: SL 20:21 | PROVIDERS: PCP Family Medicine; Referring Provider Internal Medicine Critical Care Medicine; Visit Provider Internal Medicine Critical Care Medicine | DX: G47.33 Obstructive sleep apnea (adult) (pediatric) (principal); Z99.89 Dependence on other enabling machines and devices | CPT/HCPCS: 95811 ==

== ENCOUNTER → 2022-08-15 | Outpatient (CLI) | payer MEDICARE, SELFPAY ==
--- NOTE | 2022-08-15 13:00 | PFT ---
INTRODUCTION: The patient is a 67-year-old female who presents for pulmonary function studies secondary to a diagnosis of sarcoidosis. Respiratory therapy reported good patient effort. Bronchodilators were used during testing. INTERPRETATION: Forced expiration spirometry demonstrates no evidence of a large airways obstructive ventilatory defect. There was no significant response to aerosolized bronchodilators. Spirograms are of good quality and plateau normally. Body plethysmography was performed and revealed a decreased TLC to 2.97 L, 72% of predicted, indicative of a mild restrictive ventilatory impairment. Diffusing capacity by single breath CO is reduced at 43% of predicted. IMPRESSION: Mild restrictive ventilatory impairment with disproportionate reduction in diffusing capacity.
== END | disposition home or self-care (01) ==
PROVIDERS: PCP Family Medicine; Referring Provider Internal Medicine Critical Care Medicine; Visit Provider Internal Medicine Critical Care Medicine
DX: D86.0 Sarcoidosis of lung (principal)
CPT/HCPCS: 94060; 94726; 94729

== ENCOUNTER 2022-09-09 11:54 | Inpatient (IN) | payer MEDICARE, SELFPAY ==
[2022-09-09] VITALS (14 sets, daily range): BP systolic 103–135; BP diastolic 66–118; PULSE 84–102; RESP 16–29; TEMP 35.5–36.7; O2SAT 86–100; BMI 44.2
--- NOTE | 2022-09-09 12:08 | EDS_ITS ---
HPI History of Present Illness Chief Complaint: Shortness of Breath [facility] Medical History Alcohol use Ambulates with cane Anemia Arthritis Arthritis, rheumatoid Cancer Cardiology follow-up encounter Chronic pain COVID-19 virus detected (03/30/20) CPAP (continuous positive airway pressure) dependence DVT (deep venous thrombosis) Easy bruising Excessive bleeding Glucose intolerance Hemoptysis Hiatal hernia History of breast cancer History of echocardiogram History of edema History of IBS History of irregular heartbeat History of pain when walking Hypothyroid Injury of head and neck Leg cramps Malignant neoplasm of breast Migraine headache Mitral valve annular calcification Non-smoker Obesity HARRISON on CPAP Osteoarthritis Other and unspecified diseases of upper respiratory tract Post-menopausal Restless leg syndrome Rheumatoid arthritis Sarcoidosis of lung Sleep apnea Thyroid disease Varicose veins of both lower extremities Wears glasses Wears partial dentures Home Medications gabapentin 300 mg capsule 300 mg PO TIDCM 06/03/13 [History Last Taken 03/22/21 09:00] hydroxychloroquine 200 mg tablet 200 mg PO DAILYCM 07/05/15 [History Last Taken 03/22/21 09:00] cyclobenzaprine 10 mg tablet 10 mg PO TID PRN Pain 05/28/17 [History Last Taken Unknown] ferrous sulfate 325 mg (65 mg iron) tablet 325 mg PO QDAY 05/28/17 [History Last Taken Unknown] multivitamin (Multiple Vitamins tablet) 1 tab PO QDAY 05/28/17 [History Last Taken Unknown] vitamin B complex (B Complex-Vitamin B12 tablet) 1 tab PO QDAY 05/28/17 [History Last Taken Unknown] fujajws-jootbcirq-gjwm tablet 4 tab PO DAILY 05/17/20 [History Last Taken Unknown] clobetasol 0.05 % topical ointment 1 applic topical DAILY PRN SKIN CONDITION 05/17/20 [History Last Taken Unknown] levothyroxine 75 mcg tablet 75 mcg PO DAILY 05/17/20 [History Last Taken 03/22/21 09:00] lorazepam 1 mg tablet 0.5 mg PO DAILY PRN Anxiety 05/17/20 [History Last Taken Unknown] methotrexate sodium 2.5 mg tablet 15 mg PO QWEEK 05/17/20 [History Last Taken Unknown] vitamins A,C,and E-selenium capsule (Super Antioxidant capsule) 1 cap PO DAILY 05/17/20 [History Last Taken Unknown] nortriptyline 25 mg capsule 25 mg PO QHS 07/08/22 [History Last Taken Unknown] ondansetron HCl 4 mg tablet 4 mg PO Q8H PRN nausea and vomiting 07/08/22 [History Last Taken Unknown] prednisone 5 mg tablet 5 mg PO DAILY 07/08/22 [History Last Taken Unknown] Allergy/AdvReac Type Severity Reaction Status Date / Time doxycycline Allergy Mild Nausea Verified 09/09/22 11:55 enalaprilat [From Vasotec] Allergy Mild Other - Verified 09/09/22 11:55 lightheadedness codeine Allergy Unknown Verified 09/09/22 11:55 midazolam HCl [From Versed] Allergy Anaphylaxis Verified 09/09/22 11:55 morphine AdvReac Nausea/Vom/ Verified 09/09/22 11:55 Diarrhea NSAIDS (Non-Steroidal AdvReac Other Verified 09/09/22 11:55 Anti-Inflamma Family History Mother Diabetes Pancreatic cancer Brother Diabetes Hypertension Seasonal allergies Melanoma Brain cancer Tongue cancer Father Colon cancer Parkinson disease Sister Hypertension Seasonal allergies Uterine cancer Lung cancer Liver cancer Surgical History H/O hernia repair H/O ligation of vein H/O thumb surgery H/O vaginal hysterectomy History of appendectomy History of carpal tunnel release of both wrists History of carpal tunnel surgery History of foot operation History of gastric bypass History of modified radical mastectomy Hx of cataract surgery Hx of cholecystectomy Hx of hand surgery Hx of mastectomy (2006) Port-a-cath in place Social History Smoking Status: Never smoker alcohol intake: current alcohol intake frequency: holidays/special occasions only substance use type: does not use caffeine: Yes Type: carbonated beverages Number of servings: 3 and coffee Number of servings: 2 EXAM Physical Exam Const Vital Signs: 09/09/22 11:55 09/09/22 11:57 09/09/22 12:37 Temperature 96 F L Temperature Source Temporal Pulse Rate 102 H Respiratory Rate 24 H Respiratory Effort Short of Breath Respiratory Depth Normal Respiratory Pattern Normal Blood Pressure 103/79 Blood Pressure Mean 87 Pulse Ox 86 97 Oxygen Delivery Method Room Air Nasal Cannula Room Air Oxygen Flow Rate (L/min) 2 MDM MDM MDM Narrative Medical decision making narrative: .HISTORY OF PRESENT ILLNESS: 67-year-old female here with shortness of breath cough x1 week unable to lie f lat. Notes left-sided chest pain is worse with a deep breath. Denies any bleeding diathesis. Denies any vomiting. Up-to-date on immunization for COVID and flu. Denies any sick contacts denies any lower extremity edema. Denies a history of heart attack. The patient denies recent surgery in the last 4 weeks or immobilization in the last 3 days, denies previous diagnosis of PE, hemoptysis, unilateral leg swelling or malignancy with treatment the last 6 months. No estrogen use noted. REVIEW OF SYSTEMS: Pertinent positives: Shortness of breath, cough Pertinent negatives: Syncope, focal weakness PHYSICAL EXAM: Nursing triage notes reviewed, Vital signs reviewed Constitutional: please see mdm HENT: MMM Eyes: Pupils equal round and reactive to light, Extraocular muscles intact Neck: No stridor, no JVD, full neck ROM Lungs: Clear to auscultation, No wheezing or rales. No increased work of breathing, no conversational dyspnea, no accessory muscle use, no nasal flaring. No respiratory distress noted Heart: Regular rate and rhythm, No murmurs, No rubs and No gallops, 2+ distal pulses (radial, femoral, posterior tibial) in all extremities Abdomen: Soft, there is no tenderness, rigidity, rebound or guarding, no obvious peritoneal signs, no palpable pulsatile abdominal masses, no auscultated abdominal bruit : No CVAT Extremities: No edema Neuro: No focal neurological deficits, cranial nerves II through XII intact, 5/5 strength in all extremities. Intact sensation to light touch in all extremities, 2+ reflexes bilateral patella tendons. Normal gait. No ataxia. Skin: No rash or lesions noted MEDICAL DECISION MAKING: Chief Complaint: Shortness of breath, cough External records reviewed: Echocardiogram from June 2020 shows ejection fraction of 60% Factors affecting care: Sarcoidosis, hypothyroidism, Social determinants of health: Elderly History obtained from others: none Consults: Internal medicine ALL IMAGES (IF OBTAINED) HAVE BEEN PERSONALLY REVIEWED AND INTERPRETED BY MYSELF. Initial EKG with normal sinus rhythm, left axis deviation, normal intervals, no obvious STEMI [facility] Narrative: Patient was initially hypoxic (87%) requiring 2 L nasal cannula, she is also tachycardic tachypneic but afebrile. Lungs are clear without obvious focal consolidation initial exam. Patient had no increased work of breathing or conversational dyspnea. Did not require intubation or BiPAP I considered the following differential diagnosis: Pneumonia, PE, CHF, ACS, arrhythmia, anemia, electrolyte abnormality, viral infection I obtained a broad lab and imaging work-up to further elucidate etiology the patient complaints. CT of the chest showed no evidence of pulmonary embolism, pneumonia shows evidence of likely interstitial lung disease or sarcoidosis. There is no evidence of myocardial ischemia on the patient's initial EKG. Troponin was also negative. There is no significant anemia, electrolyte abnormalities, no evidence of volume overload with a negative BNP. There is unclear etiology of the patient's hypoxia and new onset oxygen requirement I suspect she is having a exacerbation of her underlying autoimmune lung disease. I did give empiric steroids. Given the patient's new oxygen requirement, hypoxia and need for nasal cannula I suggested hospitalization for evaluation and potential initiation of outpatient oxygen therapy. The patient and/or family, caregivers express understanding. The patient and/or family, caregivers agrees with the plan. Total critical care time today provided was at least 0 minutes. This excludes separately billable procedures. Critical care time (if documented) is secondary to the patient having high probability of clinically significant/life threatening deterioration in the patient's condition which required my urgent intervention. Shared decision making: I will have a discussion with the patient and or visitors regarding risk/benefits of further testing or admission. They will be made aware of of the risk/benefits inherent in this decision they will be given the opportunity to voice understanding. Lab Data Labs: Laboratory Results - last 24 hr 09/09/22 09/09/22 09/09/22 12:57 12:57 13:24 WBC Cancelled 5.9 Corrected WBC Cancelled RBC Cancelled 3.32 L Hgb Cancelled 10.2 L Hct Cancelled 32.7 L MCV Cancelled 98.5 MCH Cancelled 30.7 MCHC Cancelled 31.2 L RDW Std Deviation Cancelled 57.3 H RDW Coeff of Edilma Cancelled 16.2 H Plt Count Cancelled 308 MPV Cancelled 9.5 Immature Gran % (Auto) Cancelled 0.300 Neut % (Auto) Cancelled 82.3 H Lymph % (Auto) Cancelled 7.3 L [place] % (Auto) Cancelled 7.5 Eos % (Auto) Cancelled 1.7 Baso % (Auto) Cancelled 0.9 Absolute Neuts (auto) Cancelled 4.8 Absolute Lymphs (auto) Cancelled 0.43 L Total Counted Cancelled Neutrophils % (Manual) Cancelled Band Neutrophils % Cancelled Lymphocytes % (Manual) Cancelled Monocytes % (Manual) Cancelled Eosinophils % (Manual) Cancelled Basophils % (Manual) Cancelled Metamyelocytes % Cancelled Myelocytes % Cancelled Promyelocytes % Cancelled Blast Cells % Cancelled Plasma Cell % (Manual) Cancelled Other Cells % Cancelled Nucleated RBC % Cancelled 0 Nucleated RBCs/100 WBC Cancelled Differential Comment Cancelled COMMENT Diff Path Review Cancelled Hypersegmented Neuts Cancelled Atypical Lymphocytes Cancelled Reactive Lymphocytes Cancelled Smudge Cells Cancelled Toxic Granulation Cancelled Toxic Vacuolation Cancelled Dohle Bodies Cancelled Simone Rods Cancelled Platelet Estimate Cancelled Plt Morphology Comment Cancelled RBC Morphology Cancelled Cancelled Polychromasia Cancelled Hypochromasia Cancelled Poikilocytosis Cancelled Basophilic Stippling Cancelled Anisocytosis Cancelled Microcytosis Cancelled Macrocytosis Cancelled Spherocytes Cancelled Sickle Cells Cancelled Target Cells Cancelled Tear Drop Cells Cancelled Ovalocytes Cancelled Stomatocytes Cancelled Tate-Lindon Bodies Cancelled [place] Cells Cancelled Bite Cells Cancelled Crenated Cell Cancelled Acanthocytes (Spur) Cancelled Rouleaux Cancelled Schistocytes Cancelled D-Dimer Quant (PE/DVT) 1.35 H* Cancelled Sodium 138 Potassium 4.2 Chloride 107 Carbon Dioxide 26.0 Anion Gap 5 BUN 14 Creatinine 0.90 Est GFR (MDRD) Af Amer 80 Est GFR (MDRD) Non-Af 66 BUN/Creatinine Ratio 15.6 Glucose 100 Calcium 9.0 Troponin I High Sens 9 B-Natriuretic Peptide Cancelled 60.5 Radiography Diagnostic Testing: Clinical Impression(s) from Imaging Studies Chest CTA 09/09/22 12:31 IMPRESSION: No evidence of pulmonary embolism. Stable scarring in the right lung most likely secondary to post radiation changes. Stable mild enlarged right hilar and subcarinal lymph nodes most likely secondary to the known history of sarcoidosis. Electronically Signed: Luis Miguel Gustafson MD at 14:53 EDT , Chest X-Ray 09/09/22 13:35 IMPRESSION: Increased interstitial markings in the right hemithorax and mild increased markings at the left lung base. Interstitial pneumonia should be ruled out. Radiographic follow-up recommended. Electronically Signed: Luis Miguel Gustafson MD at 14:10 EDT , Discharge Plan Dx/Rx/DC Orders Clinical Impression: Sarcoidosis of lung, Hypoxia Disposition Disposition: Acute Care Hospital [facility]
--- NOTE | 2022-09-09 12:11 | EKG12_ITS ---
Test Reason : SOB Blood Pressure : / mmHG Vent. Rate : 094 BPM Atrial Rate : 094 BPM P-R Int : 148 ms QRS Dur : 092 ms QT Int : 358 ms P-R-T Axes : 040 -40 021 degrees QTc Int : 447 ms Normal sinus rhythm Left axis deviation Abnormal ECG Confirmed by SHARAD MCCABE, TOSIN ([id number]), website/blog editor HILL WRIGHT ([id number]) on 09/11/2022 10:19:25 AM Referred By: BB/ZANE Confirmed By:TOSIN OROURKE MD
--- NOTE | 2022-09-09 12:31 | CT_ITS ---
STUDY: CTA CHEST REASON FOR EXAM: Female, 67 years old. hypoxia, SOB r/o PE. Patient has a history of breast cancer. RADIATION DOSAGE (If Supplied By Facility): CTDIvol = ( 13.79 ) mGy, DLP = ( 435.85 ) mGycm TECHNIQUE: The examination was performed with the intravenous administration of IV 100mL Isovue-370. Post-processing of the angiographic images was performed, with multiplanar reformation and 3D reconstruction. Individualized dose optimization techniques were used for this CT. COMPARISON: Comparison is made with prior study dated December 15, 2019. FINDINGS: Normal enhancement of the main pulmonary artery and right and left pulmonary arteries. Normal enhancement of the bilateral peripheral pulmonary arteries. There is no demonstrated pulmonary embolism. Normal thoracic aorta and visualized great vessels. There is no demonstrated aortic dissection. Normal heart and pericardium. Stable subcarinal lymph node enlargement. Slightly larger right hilar lymph nodes. Patient has a history of sarcoidosis. Normal visualized trachea and bronchi. The lungs are well expanded. Increased linear markings with areas of bronchiectasis in the right middle lobe as well as right upper lobe. Increased markings are also seen in the right lower lobe. 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 Normal pleura. Normal chest wall structures. There are degenerative changes of thoracic spine. The patient is status post cholecystectomy. Surgical clips are seen in the epigastrium causing beam hardening artifacts. Large hiatal hernia. CT/CTA Chest W/WO Contrast IMPRESSION: No evidence of pulmonary embolism. Stable scarring in the right lung most likely secondary to post radiation changes. Stable mild enlarged right hilar and subcarinal lymph nodes most likely secondary to the known history of sarcoidosis. Electronically Signed: Luis Miguel Gustafson MD at 14:53 EDT ,
--- NOTE | 2022-09-09 13:14 | NURSING ---
NEED A NEW PURPLE. CLOTTED PER LAB
[2022-09-09 13:20] LABS: Anion Gap 5 (5-15); BUN 14 mg/dL (7-18); BUN/Creat Ratio 15.6 RATIO (10-20); Chloride 107 mmol/L (98-107); EST Glomerular Filtration Rate 66 mL/min (>60); Est Glom Filt Rate - Afr Amer 80 mL/min (>60); Glucose 100 mg/dL (74-106); Potassium 4.2 mmol/L (3.5-5.1); Sodium Level 138 mmol/L (136-145); Troponin-I HS 9 pg/mL (3.0-54.0)
--- NOTE | 2022-09-09 13:35 | RAD_ITS ---
STUDY: X-RAY CHEST REASON FOR EXAM: Female, 67 years old. One-week history of a cough and shortness of breath. TECHNIQUE: PA and lateral views of the chest. COMPARISON: Comparison is made with prior study of December 08, 2017. FINDINGS: EKG electrodes are seen. Decreased expansion of the right hemithorax. Increased interstitial markings in the right lung as compared to prior study. Mild increased markings in the left hemithorax. Interstitial pneumonia should be ruled out. Radiographic follow-up is recommended. There is no demonstrated pleural abnormality. There is borderline cardiomegaly. Normal mediastinum and isis. Normal visualized pulmonary arteries. Normal visualized aortic arch and descending thoracic aorta. There are diffuse degenerative changes of the visualized thoracic spine. Normal visualized ribs, clavicles, and shoulders. There is no demonstrated abnormality of the visualized soft tissue structures of the upper abdomen. RAD/Chest PA and Lateral IMPRESSION: Increased interstitial markings in the right hemithorax and mild increased markings at the left lung base. Interstitial pneumonia should be ruled out. Radiographic follow-up recommended. Electronically Signed: Luis Miguel Gustafson MD at 14:10 EDT ,
[2022-09-09 13:38] LABS: Absolute Lymphocyte Count 0.43 X10^3/uL (0.83-4.51); Absolute Neutrophil Count 4.8 X10^3/uL (2.0-7.7); Basophil# 0.05 X10^3/uL; Basophil% 0.9 % (0-1); Eosinophils% 1.7 % (0-5); Hematocrit 32.7 % (37-47); Hemoglobin 10.2 g/dL (12.0-15.0); Lymphocyte # 0.43 X10^3/ul (0.83-4.51); Lymphocyte % 7.3 % (19-41); Mean Corp Hgb Conc 31.2 g/dL (32-36); Mean Corpuscular Hgb 30.7 pg (27.0-32.0); Mean Corpuscular Volume 98.5 fL (81-99); Mean Platelet Vol. 9.5 fl (6.2-12.0); Monocyte# 0.44 X10^3/uL; Monocyte% 7.5 % (0-10); NRBC Flagged by Analyzer 0 % (0-5); Neutrophil # 4.82 X10^3/uL (2.7-7.7); Neutrophil % 82.3 % (47-70); POSITIVE DIFFERENTIAL YES; Platelet Count 308 K/mm3 (150-450); RBC Distribution Width CV 16.2 % (11.6-14.6); RBC Distribution Width SD 57.3 fl (35.1-43.9); Red Blood Count 3.32 M/mm3 (4.2-5.4); White Blood Count 5.9 K/mm3 (4.4-11.0)
[2022-09-09 13:48] LABS: Differential Indicated SCAN CRITERIA MET
--- NOTE | 2022-09-09 13:55 | CM.ED ---
Social Work SW met with patient and introduced herself and role as [facility] [employer] Worker. Patient lying on hospital bed and agreeable to speak with SW. SW inquired about LW and HCPOA. Patient reports having both completed and her HCPOA is her , Krystal, and second agent is her son, Chuck. SW encouraged patient to bring in a copy to [facility] to be added to his chart, patient reports understanding. Anastasiia GUZMÁN, JERMAINE
[2022-09-09 14:06] LABS: BNP,B-Type NATRIURETIC PEPTIDE 60.5 pg/mL (0-100)
--- NOTE | 2022-09-09 15:11 | NURSING ---
[facility]
[2022-09-09 15:16] LABS: D-Dimer Quantitative (DVT/PE) 1.35 FEU/ug/m (0.27-0.49)
[2022-09-09] MEDS: dexAMETHasone 10 MG/ML Vial 6 MG IV (16:04)
--- NOTE | 2022-09-09 16:07 | ECHOCS_ITS ---
Reason For Study: CHF Procedure This was a 2D Doppler, Color Flow transthoracic echocardiogram. The study was technically difficult. Contrast injection was performed. Exam performed portable in patient room. Left Ventricle Normal LV size. Left ventricular systolic function is normal. The estimated ejection fraction is 55 %. Stage 1 diastolic dysfunction. Right Ventricle Normal RV size. Normal systolic function. Atria Normal left atrium. Normal right atrium. Mitral Valve There is mild to moderate mitral annular calcification. Tricuspid Valve Normal tricuspid valve. Mild to moderate (1-2+) tricuspid valve insufficiency. Pulmonary artery systolic pressure is 34 mmHg. Pulmonic Valve The pulmonic valve is not well visualized. Great Vessels Dilated descending aorta. Pericardium/Pleural No pericardial effusion. Medication Diluted definity 2ml given slow IV push to enhance endocardial definition. MMode/2D Measurements & Calculations LVIDd: 4.1 cm IVSd: 0.84 cm Ao root diam: 3.2 cm LVIDs: 3.0 cm LVPWd: 0.98 cm FS: 25.6 % LAV(MOD-bp): 51.0 ml LVAd ap4: 29.8 cm2 SV(MOD-sp4): 43.3 ml LAV(MOD-bp) Indexed: 25.9 ml/m2 LVLd ap4: 7.9 cm LAV(MOD-sp2): 47.1 ml EDV(MOD-sp4): 91.6 ml LAV(MOD-sp4): 53.8 ml EDV(sp4-el): 95.7 ml LVAs ap4: 19.3 cm2 LVLs ap4: 6.3 cm ESV(MOD-sp4): 48.3 ml ESV(sp4-el): 50.1 ml EF(MOD-sp4): 47.2 % EF(sp4-el): 47.7 % SV(sp4-el): 45.6 ml LA A4 area: 20.4 cm2 LA dimension(2D): 4.0 cm RA A4 area: 8.2 cm2 TAPSE: 2.2 cm Time Measurements MV dec time: 0.14 sec Doppler Measurements & Calculations MV E max edil: 95.8 cm/sec Lat Peak E' Edil: 9.1 cm/sec Med Peak E' Edil: 9.3 cm/sec MV A max edil: 145.0 cm/sec E/E' lat: 10.5 E/E' med: 10.3 MV E/A: 0.66 MV V2 max: 145.5 cm/sec Ao V2 max: 132.1 cm/sec MV max P.5 mmHg MV dec slope: 666.2 cm/sec2 Ao max P.0 mmHg MV V2 mean: 85.1 cm/sec Ao V2 mean: 87.3 cm/sec MV mean P.3 mmHg Ao mean P.5 mmHg MV V2 VTI: 34.6 cm Ao V2 VTI: 22.6 cm AV (velocity ratio): 1.0 LV V1 max: 121.6 cm/sec PA V2 max: 78.7 cm/sec TR max edil: 275.9 cm/sec LV V1 max P.9 mmHg PA V2 mean: 56.6 cm/sec TR max P.4 mmHg LV V1 mean P.3 mmHg LV V1 mean: 84.3 cm/sec LV V1 VTI: 23.4 cm ECHO/Echo Complete W/ Contrast Interpretation Summary Normal LV size. Left ventricular systolic function is normal. Stage 1 diastolic dysfunction. The estimated ejection fraction is 55 %. Mild to moderate (1-2+) tricuspid valve insufficiency. Ordering Physician: Fernando Silverman Referring Physician: Elisa Baxter M.D. Performed By: Julia Hunt RCS
[2022-09-09] MEDS: Furosemide 40 MG/4 ML Vial IV (18:34)
[2022-09-09] MEDS: Gabapentin 300 MG Capsule PO (18:34)
[2022-09-09] MEDS: 0.9% Saline Lock 10 ML Syringe IV (18:35)
[2022-09-09 19:21] LABS: Erythrocyte Sedimentation Rate 59 mm/hr (0-30)
--- NOTE | 2022-09-09 19:28 | HP.PCM_ITS ---
HPI - General General Date of Admission: 09/09/22 Date of Service: 09/09/22 Chief Complaint: Progressively worsening shortness of breath and hypoxia HPI Narrative NEHAL ELIZONDO, is a 67 F with a history of morbid obesity, sarcoidosis, HARRISON on CPAP and history of right breast cancer status post mastectomy and radiation treatment and has been cancer free since 2006. Presented to the hospital with several months history of progressively worsening shortness of breath and exertional dyspnea but over the last 5 days became significantly more severe. She has also had orthopnea for some time as well. Has been sleeping reclined in bed and did not report any paroxysmal nocturnal dyspnea. Has some swelling of the left ankle. Patient denies having any cough. PFTs done 2 months ago showing a mildly restrictive lung pattern with significantly diminished DLCO. Patient's friend checked her pulse ox and it was noted to be in the low 80s and so prompting patient to come to the hospital. Patient had mentioned having some pleuritic chest pain so a CT pulm angiogram was done and this was negative for pulmonary embolism however did show significant interstitial disease and fibrosis in the right lung. COUNTS INCLUDE 234 BEDS AT THE [facility] Medical History Alcohol use Ambulates with cane Anemia Arthritis Arthritis, rheumatoid Cancer Cardiology follow-up encounter Chronic pain Congestive heart failure (CHF) COVID-19 virus detected (03/30/20) CPAP (continuous positive airway pressure) dependence DVT (deep venous thrombosis) Easy bruising Excessive bleeding Glucose intolerance Hemoptysis Hiatal hernia History of breast cancer History of echocardiogram History of edema History of IBS History of irregular heartbeat History of pain when walking Hypothyroid Injury of head and neck Leg cramps Malignant neoplasm of breast Migraine headache Mitral valve annular calcification Non-smoker Obesity HARRISON on CPAP Osteoarthritis Osteoporosis Other and unspecified diseases of upper respiratory tract Post-menopausal Pulmonary embolism Restless leg syndrome Rheumatoid arthritis Sarcoidosis of lung Sleep apnea Thyroid disease Varicose veins of both lower extremities Wears glasses Wears partial dentures Home Medications gabapentin 300 mg capsule 300 mg PO TIDCM 06/03/13 [History Last Taken 09/09/22] hydroxychloroquine 200 mg tablet 200 mg PO DAILYCM 07/05/15 [History Last Taken 09/09/22] cyclobenzaprine 10 mg tablet 10 mg PO TID PRN Pain 05/28/17 [History Last Taken 09/07/22] ferrous sulfate 325 mg (65 mg iron) tablet 325 mg PO DAILY 05/28/17 [History Last Taken Unknown] multivitamin (Multiple Vitamins tablet) 1 tab PO DAILY 05/28/17 [History Last Taken 09/09/22] vitamin B complex (B Complex-Vitamin B12 tablet) 1 tab PO QDAY 05/28/17 [History Last Taken 09/09/22] clobetasol 0.05 % topical ointment 1 applic topical DAILY PRN SKIN CONDITION 05/17/20 [History Last Taken Unknown] levothyroxine 75 mcg tablet 75 mcg PO DAILY 05/17/20 [History Last Taken 09/09/22] lorazepam 1 mg tablet 0.5 mg PO DAILY PRN Anxiety 05/17/20 [History Last Taken 09/06/22] methotrexate sodium 2.5 mg tablet 15 mg PO SHARP 05/17/20 [History Last Taken 09/08/22] vitamins A,C,and E-selenium capsule (Super Antioxidant capsule) 1 cap PO DAILY 05/17/20 [History Last Taken 09/09/22] nortriptyline 25 mg capsule 25 mg PO QHS 07/08/22 [History Last Taken 09/08/22] ondansetron HCl 4 mg tablet 4 mg PO Q8H PRN nausea and vomiting 07/08/22 [History Last Taken Unknown] prednisone 5 mg tablet 5 mg PO DAILY 07/08/22 [History Last Taken 09/09/22] prtodqt-olrqvhhkz-jcsp 333 mg-133 mg-5 mg tablet 4 tab PO DAILY SUPPLEMENT 09/09/22 [History Last Taken 09/08/22] Allergy/AdvReac Type Severity Reaction Status Date / Time doxycycline Allergy Mild Nausea Verified 09/09/22 16:38 enalaprilat [From Vasotec] Allergy Mild Other - Verified 09/09/22 16:38 lightheadedness codeine Allergy Unknown Verified 09/09/22 16:38 midazolam HCl [From Versed] Allergy Anaphylaxis Verified 09/09/22 16:38 morphine AdvReac Nausea/Vom/ Verified 09/09/22 16:38 Diarrhea NSAIDS (Non-Steroidal AdvReac Other Verified 09/09/22 16:38 Anti-Inflamma Family History Mother Diabetes Pancreatic cancer Brother Diabetes Hypertension Seasonal allergies Melanoma Brain cancer Tongue cancer Father Colon cancer Parkinson disease Sister Hypertension Seasonal allergies Uterine cancer Lung cancer Liver cancer Surgical History H/O hernia repair H/O ligation of vein H/O thumb surgery H/O vaginal hysterectomy History of appendectomy History of carpal tunnel release of both wrists History of carpal tunnel surgery History of cholecystectomy History of foot operation History of gastric bypass History of modified radical mastectomy Hx of cataract surgery Hx of cholecystectomy Hx of hand surgery Hx of mastectomy (2006) Port-a-cath in place Social History Smoking Status: Never smoker alcohol intake: current alcohol intake frequency: holidays/special occasions o nly substance use type: does not use caffeine: Yes Type: carbonated beverages Number of servings: 3 and coffee Number of servings: 2 Vital Signs Vital Signs Vital Signs: 09/09/22 11:55 09/09/22 11:57 09/09/22 12:37 Temperature 35.5 C L Temperature Source Temporal Pulse Rate 102 H Respiratory Rate 24 H Respiratory Effort Short of Breath Respiratory Depth Normal Respiratory Pattern Normal Blood Pressure 103/79 Blood Pressure Mean 87 Blood Pressure Source Blood Pressure Position Blood Pressure Location Pulse Ox 86 97 Oxygen Delivery Method Room Air Nasal Cannula Room Air Oxygen Flow Rate (L/min) 2 09/09/22 14:59 09/09/22 14:53 09/09/22 15:00 Temperature 36.4 C L Temperature Source Temporal Pulse Rate 85 92 92 Respiratory Rate 25 H 25 H 21 H Respiratory Effort Respiratory Depth Respiratory Pattern Blood Pressure 135/100 H 108/70 Blood Pressure Mean 111 81 Blood Pressure Source Blood Pressure Position Blood Pressure Location Pulse Ox 94 100 100 Oxygen Delivery Method Nasal Cannula Oxygen Flow Rate (L/min) 09/09/22 15:10 09/09/22 15:16 09/09/22 15:20 Temperature Temperature Source Pulse Rate 92 90 91 Respiratory Rate 29 H 28 H 24 H Respiratory Effort Respiratory Depth Respiratory Pattern Blood Pressure 130/118 H Blood Pressure Mean 125 Blood Pressure Source Blood Pressure Position Blood Pressure Location Pulse Ox 100 98 Oxygen Delivery Method Oxygen Flow Rate (L/min) 09/09/22 15:30 09/09/22 15:40 09/09/22 15:45 Temperature Temperature Source Pulse Rate 91 87 85 Respiratory Rate 24 H 22 H 16 Respiratory Effort Respiratory Depth Respiratory Pattern Blood Pressure 132/66 H 135/100 H Blood Pressure Mean 80 111 Blood Pressure Source Blood Pressure Position Blood Pressure Location Pulse Ox Oxygen Delivery Method Oxygen Flow Rate (L/min) 09/09/22 15:50 09/09/22 17:56 Temperature 36.6 C Temperature Source Oral Pulse Rate 85 84 Respiratory Rate 20 H 18 Respiratory Effort Respiratory Depth Respiratory Pattern Blood Pressure 113/95 H Blood Pressure Mean 101 Blood Pressure Source Manual Blood Pressure Position Semi-Fowlers Blood Pressure Location Left Forearm Pulse Ox 100 Oxygen Delivery Method Nasal Cannula Oxygen Flow Rate (L/min) 2 Weight Weight: 102.8 kg Body Mass Index (BMI) 44.2 Physical Exam Narrative General exam. Elderly man, morbidly obese, dyspneic at rest, pleasant HEENT. Oral mucosa moist no pallor jaundice or cyanosis Neck. Neck is supple there is jugular venous distention 2+. Heart. The second heart sounds heard no murmurs Lungs. Coarse crackles in the right lung. Abdomen. Obese. Moves with respiration no organomegaly or palpable masses. Extremities. Mild left ankle edema. Varicose veins in the right [employer]. Conscious alert oriented x3 cranial 2-12 grossly intact Results Medical Records Data Attestation: I reviewed the patient's medical records Lab / Micro Data Attestation: I reviewed the patient's lab results. 09/09/22 13:24 09/09/22 12:57 Labs: Laboratory Results - last 24 hr 09/09/22 12:57: WBC Cancelled, Corrected WBC Cancelled, RBC Cancelled, Hgb Cancelled, Hct Cancelled, MCV Cancelled, MCH Cancelled, MCHC Cancelled, RDW Std Deviation Cancelled, RDW Coeff of Edilma Cancelled, Plt Count Cancelled, MPV Cancelled, Immature Gran % (Auto) Cancelled, Neut % (Auto) Cancelled, Lymph % (Auto) Cancelled, [place] % (Auto) Cancelled, Eos % (Auto) Cancelled, Baso % (Auto) Cancelled, Absolute Neuts (auto) Cancelled, Absolute Lymphs (auto) Cancelled, Total Counted Cancelled, Neutrophils % (Manual) Cancelled, Band Neutrophils % Cancelled, Lymphocytes % (Manual) Cancelled, Monocytes % (Manual) Cancelled, Eosinophils % (Manual) Cancelled, Basophils % (Manual) Cancelled, Metamyelocytes % Cancelled, Myelocytes % Cancelled, Promyelocytes % Cancelled, Blast Cells % Cancelled, Plasma Cell % (Manual) Cancelled, Other Cells % Cancelled, Nucleated RBC % Cancelled, Nucleated RBCs/100 WBC Cancelled, Differential Comment Cancelled, Diff Path Review Cancelled, Hypersegmented Neuts Cancelled, Atypical Lymphocytes Cancelled, Reactive Lymphocytes Cancelled, Smudge Cells Cancelled, Toxic Granulation Cancelled, Toxic Vacuolation Cancelled, Dohle Bodies Cancelled, Simone Rods Cancelled, Platelet Estimate Cancelled, Plt Morphology Comment Cancelled, RBC Morphology Cancelled 09/09/22 12:57: RBC Morphology Cancelled, Polychromasia Cancelled, Hypochromasia Cancelled, Poikilocytosis Cancelled, Basophilic Stippling Cancelled, Anisocytosis Cancelled, Microcytosis Cancelled, Macrocytosis Cancelled, Spherocytes Cancelled, Sickle Cells Cancelled, Target Cells Cancelled, Tear Drop Cells Cancelled, Ovalocytes Cancelled, Stomatocytes Cancelled, [place] Bodies Cancelled, Lew Cells Cancelled, Bite Cells Cancelled, Crenated Cell Cancelled, Acanthocytes (Spur) Cancelled, Rouleaux Cancelled, Schistocytes Cancelled, D-Dimer Quant (PE/DVT) 1.35 H*, Sodium 138, Potassium 4.2, Chloride 107, Carbon Dioxide 26.0, Anion Gap 5, BUN 14, Creatinine 0.90, Est GFR (MDRD) Af Amer 80, Est GFR (MDRD) Non-Af 66, BUN/Creatinine Ratio 15.6, Glucose 100, Calcium 9.0, Troponin I High Sens 9, B-Natriuretic Peptide Cancelled 09/09/22 13:24: WBC 5.9, RBC 3.32 L, Hgb 10.2 L, Hct 32.7 L, MCV 98.5, MCH 30.7, MCHC 31.2 L, RDW Std Deviation 57.3 H, RDW Coeff of Edilma 16.2 H, Plt Count 308, MPV 9.5, Immature Gran % (Auto) 0.300, Neut % (Auto) 82.3 H, Lymph % (Auto) 7.3 L, [place] % (Auto) 7.5, Eos % (Auto) 1.7, Baso % (Auto) 0.9, Absolute Neuts (auto) 4.8, Absolute Lymphs (auto) 0.43 L, Nucleated RBC % 0, Differential Comment COMMENT, D-Dimer Quant (PE/DVT) Cancelled, B-Natriuretic Peptide 60.5 09/09/22 18:30: ESR 59 H Micro: Microbiology 09/09/22 12:57 Nasal Secretion SARS-CoV-2 & FLU Antigen (Rapid) - Final ABG Data Attestation: I personally reviewed and interpreted this ABG as follows: Radiology Impression Chest CTA 09/09/22 12:31 IMPRESSION: No evidence of pulmonary embolism. Stable scarring in the right lung most likely secondary to post radiation changes. Stable mild enlarged right hilar and subcarinal lymph nodes most likely secondary to the known history of sarcoidosis. Electronically Signed: Luis Miguel Gustafson MD at 14:53 EDT , Chest X-Ray 09/09/22 13:35 IMPRESSION: Increased interstitial markings in the right hemithorax and mild increased markings at the left lung base. Interstitial pneumonia should be ruled out. Radiographic follow-up recommended. Electronically Signed: Luis Miguel Gustafson MD at 14:10 EDT , Assessment & Plan Assessment/Plan (1) Shortness of breath: PLAN: Plan Assessment and plan 1. Progressively worsening shortness of breath, exertional dyspnea and easy fatigability. This appears to be multifactorial including interstitial lung disease/fibrosis predominantly involving the right lung, morbid obesity with HARRISON and possible OHS and possible pulmonary hypertension and possible congestive heart failure. We will work-up the above to rule out and rule considered differentials. Echocardiogram to evaluate for congestive heart failure and/or pulmonary hypertension (would explain significantly and out of proportionally reduced DLCO). Will treat with Lasix 40 mg every 12 hours. Monitor electrolytes. Strict I's and O's. 2. Interstitial lung disease/pulmonary fibrosis almost exclusively involving the right lung. Possible etiologies include prior radiation for right breast cancer (this was over 15 years ago though and so this would be quite unusual except as a very late sequela), sarcoidosis, rheumatoid lung (known active rheumatoid arthritis) and potentially chronic aspiration from GERD (noted large hiatal hernia which may predispose to this). Possible exacerbation of pulmonary fibrosis/sarcoidosis and so we will start on systemic steroids with IV Solu- Medrol 40 mg every 8 hours. Consult pulmonology. 3. Acute on chronic hypoxic respiratory failure. Multifactorial and secondary to 1 and 2 above. Oxygen supplementation. Evaluate for home oxygen at discharge. Charges/Coding Visit Charges Inpatient E&M: 98992 Init Hosp L3
[2022-09-09] MEDS: LORazepam 1 MG Tablet 0.5 MG PO (22:05)
[2022-09-09] MEDS: Nortriptyline 25 MG Capsule PO (22:05)
[2022-09-09] MEDS: Enoxaparin 40 MG/0.4 ML Syringe SC (22:05)
[2022-09-10 04:08] VITALS: BP 130/75; PULSE 94; RESP 16; TEMP 36.3; O2SAT 94
[2022-09-10] MEDS: cycloBENZAPRine HCl 10 MG Tablet PO (04:50)
[2022-09-10] MEDS: Levothyroxine 75 MCG Tablet PO (04:51)
[2022-09-10 06:45] LABS: Absolute Lymphocyte Count 0.31 X10^3/uL (0.83-4.51); Absolute Neutrophil Count 5.5 X10^3/uL (2.0-7.7); Basophil# 0.01 X10^3/uL; Basophil% 0.2 % (0-1); Hematocrit 33.7 % (37-47); Hemoglobin 10.6 g/dL (12.0-15.0); Lymphocyte # 0.31 X10^3/ul (0.83-4.51); Lymphocyte % 5.2 % (19-41); Mean Corp Hgb Conc 31.5 g/dL (32-36); Mean Corpuscular Hgb 30.2 pg (27.0-32.0); Mean Platelet Vol. 8.9 fl (6.2-12.0); Monocyte# 0.19 X10^3/uL; Monocyte% 3.2 % (0-10); NRBC Flagged by Analyzer 0 % (0-5); Neutrophil # 5.46 X10^3/uL (2.7-7.7); Neutrophil % 91.1 % (47-70); POSITIVE DIFFERENTIAL YES; Platelet Count 275 K/mm3 (150-450); RBC Distribution Width CV 15.4 % (11.6-14.6); RBC Distribution Width SD 53.3 fl (35.1-43.9); Red Blood Count 3.51 M/mm3 (4.2-5.4)
[2022-09-10 06:46] LABS: Differential Indicated SCAN CRITERIA MET
[2022-09-10 07:08] LABS: Anisocytosis 1+
[2022-09-10 07:19] LABS: ALB/GLOB Ratio 0.8 RATIO (0.9-2.4); AST(SGOT) 27 U/L (15-37); Alanine Aminotransfer ALT/SGPT 19 U/L (13-56); Albumin, Serum 3.1 g/dL (3.2-5.0); Alkaline Phosphatase 95 U/L (45-117); Anion Gap 7 (5-15); BUN 17 mg/dL (7-18); BUN/Creat Ratio 25.3 RATIO (10-20); Calcium,Total 8.8 mg/dL (8.5-10.1); Chloride 101 mmol/L (98-107); Creatinine, Serum 0.67 mg/dL (0.55-1.02); EST Glomerular Filtration Rate 93 mL/min (>60); Est Glom Filt Rate - Afr Amer 112 mL/min (>60); Estimated Creatinine Clearance 39.21 ml/min; Globulin 4.1 g/dL (2.2-4.2); Glucose 141 mg/dL (74-106); Potassium 3.4 mmol/L (3.5-5.1); Protein, Total 7.2 g/dL (6.4-8.2); Sodium Level 137 mmol/L (136-145)
--- NOTE | 2022-09-10 07:25 | PCM.PN.HOSP ---
Reason for Visit Reason for Visit: Diagnoses Shortness of breath (09/09/22) Subjective Subjective Follow-up for hypoxia. Interstitial lung disease/sarcoidosis Objective Data Objective Data Vital Signs: Vital Signs Temp Pulse Resp BP Pulse Ox O2 Del Method O2 Flow Rate 97.4 F L 94 16 130/75 H 94 Nasal Cannula 2 09/10/22 04:08 09/10/22 04:08 09/10/22 04:08 09/10/22 04:08 09/10/22 04:08 09/10/22 06:11 09/10/22 06:11 Oxygen Flow Rate (L/min) 2 Oxygen Delivery Method Nasal Cannula Weight: 226 lb 10.163 oz Body Mass Index (BMI) 44.2 Intake & Output: Intake and Output for Last 24 Hours 09/08/22 09/09/22 09/10/22 23:59 23:59 23:59 Output Total 1800 / 1800 Balance -1800 / -1800 Lab / Micro Data 09/10/22 06:31 09/10/22 06:31 Labs: Laboratory Results - last 24 hr 09/09/22 13:24: WBC 5.9, RBC 3.32 L, Hgb 10.2 L, Hct 32.7 L, MCV 98.5, MCH 30.7, MCHC 31.2 L, RDW Std Deviation 57.3 H, RDW Coeff of Edilma 16.2 H, Plt Count 308, MPV 9.5, Immature Gran % (Auto) 0.300, Neut % (Auto) 82.3 H, Lymph % (Auto) 7.3 L, [place] % (Auto) 7.5, Eos % (Auto) 1.7, Baso % (Auto) 0.9, Absolute Neuts (auto) 4.8, Absolute Lymphs (auto) 0.43 L, Nucleated RBC % 0, Differential Comment COMMENT, D-Dimer Quant (PE/DVT) Cancelled, B-Natriuretic Peptide 60.5 09/09/22 18:30: ESR 59 H 09/10/22 06:31: WBC 6.0, RBC 3.51 L, Hgb 10.6 L, Hct 33.7 L, MCV 96.0, MCH 30.2, MCHC 31.5 L, RDW Std Deviation 53.3 H, RDW Coeff of Edilma 15.4 H, Plt Count 275, MPV 8.9, Immature Gran % (Auto) 0.300, Neut % (Auto) 91.1 H, Lymph % (Auto) 5.2 L, [place] % (Auto) 3.2, Eos % (Auto) 0.0, Baso % (Auto) 0.2, Absolute Neuts (auto) 5.5, Absolute Lymphs (auto) 0.31 L, Nucleated RBC % 0, Anisocytosis 1+, Sodium 137, Potassium 3.4 L, Chloride 101, Carbon Dioxide 29.0, Anion Gap 7, BUN 17, Creatinine 0.67, Estim Creat Clear Calc 39.21, Est GFR (MDRD) Af Amer 112, Est GFR (MDRD) Non-Af 93, BUN/Creatinine Ratio 25.3 H, Glucose 141 H, Calcium 8.8, Total Bilirubin 0.70, AST 27, ALT 19, Alkaline Phosphatase 95, Total Protein 7.2, Albumin 3.1 L, Globulin 4.1, Albumin/Globulin Ratio 0.8 L Micro: Microbiology 09/09/22 12:57 Nasal Secretion SARS-CoV-2 & FLU Antigen (Rapid) - Final Radiography Diagnostic Testing: Radiology Impression Chest CTA 09/09/22 12:31 IMPRESSION: No evidence of pulmonary embolism. Stable scarring in the right lung most likely secondary to post radiation changes. Stable mild enlarged right hilar and subcarinal lymph nodes most likely secondary to the known history of sarcoidosis. Electronically Signed: Luis Miguel Gustafson MD at 14:53 EDT , Chest X-Ray 09/09/22 13:35 IMPRESSION: Increased interstitial markings in the right hemithorax and mild increased markings at the left lung base. Interstitial pneumonia should be ruled out. Radiographic follow-up recommended. Electronically Signed: Luis Miguel Gustafson MD at 14:10 EDT , Physical Exam Narrative Patient complain of shortness of breath. She has dyspnea/chronic shortness of breath on exertion for long time but got worse for last 1 week. She also had pleuritic chest pain on deep breathing on both sides. She follows Dr. Valdivia. Physical exam General: Alert, Oriented x3, Cooperative HEENT: Atraumatic, PERRLA, EOMI, Normocephalic Oral: Oral mucosa moist. No Gingival or Mucosal Lesions/ Ulcerations Neck: Supple, No JVD, Negative Carotid Bruits Lungs: Air entry diminished in bilateral lung bases. Bilateral coarse crepitations. Dyspnea on exertion. Cardiovascular: Regular rate, Regular Rhythm, Normal S1, Normal S2, No murmurs Abdomen: Bowel Sounds Present, Soft, Non Tender, Non-Distended : No renal angle tenderness. No suprapubic tenderness. Extremities: No edema, Capillary Refill Less than 3 Seconds Skin: No rashes, No breakdown Musculoskeletal: No Tenderness to Palpation of Joints or Extremities ROM intact. Mild peripheral joint deformity due to RA. Neurological: Cranial nerves II-XII grossly intact, DTR 2+/4 and Symmetrical, Neuro grossly intact Psych/Mental Status: Flat affect. Assessment & Plan Assessment/Plan (1) Shortness of breath: PLAN: Plan 67-year-old female admitted with shortness of breath for abnormal but progressively worsening with exertional dyspnea for last 1 week, unable to lie flat. Left-sided chest pain pleuritic in nature worse with deep breathing. Denies any recent sick contact. Denies cough. Had hypoxia pulse ox in low 80s. Assessment and plan 1. Dyspnea on exertion/shortness of breath and hypoxia due to interstitial lung disease/morbid obesity/HARRISON possible OSH/pulmonary hypertension or acute on chronic HFpEF : 2D echo on 06/02/2020 reported EF 60%. Stage I diastolic dysfunction. LA moderately enlarged. Patient has rapid improvement on furosemide 40 mg IV twice daily therefore suspicion for acute on chronic HFpEF. Repeat echo is pending. Heart failure core measures including intake and output, fluid restriction less than 1500 mL, daily weight monitoring, kidney and electrolytes monitoring. 2. Interstitial/pulmonary fibrosis mostly/almost exclusively involving right lung patient was last seen in the pulmonary clinic by Dr. Valdivia on June 2022 at that time had 5 days course of burst therapy of prednisone and was recommended sleep study and PFT. PFT done 2 months ago shows mild restrictive pattern with significantly diminished DLCO. CTA done in ED was negative for PE but significant interstitial disease and fibrosis in right lung. Patient also has radiotherapy to right breast cancer about 15 years ago. Patient is on methotrexate and hydroxychloroquine along with low-dose prednisone for RA and sarcoidosis. 3. Mild hypoxia improved with IV Lasix: Patient not on home oxygen. Hypoxia improved with IV Lasix currently on room air Charges/Coding Visit Charges Inpatient E&M: 48643 Subs Hosp L2
[2022-09-10 07:40] VITALS: O2SAT 99
[2022-09-10] MEDS: Gabapentin 300 MG Capsule PO ×3 (08:00→17:28)
[2022-09-10] MEDS: Potassium Chloride Oral Tablet 20 MEQ 40 MEQ PO (08:00)
[2022-09-10] MEDS: Hydroxychloroquine 200 MG Tablet PO (08:00)
[2022-09-10] MEDS: Acetaminophen 325 MG Tablet 650 MG PO (08:11)
--- NOTE | 2022-09-10 09:26 | CON.PCM.CC_ITS ---
Assessment & Plan Assessment/Plan (1) Shortness of breath: (2) Hypoxia: PLAN: Plan RECOMMENDATIONS: 1. Continue supplemental oxygen, if needed, to maintain saturations at or above 90%. 2. Continue IV steroids for now. 3. Diuresis as tolerated by hemodynamics and renal function. 4. Encourage incentive spirometer use and mobilize patient as tolerated. 5. Perform ambulatory oximetry study prior to consideration for discharge home. 6. Nocturnal PAP therapy per outpatient regimen. 7. Outpatient pulmonary follow-up on October 02, as scheduled. IMPRESSIONS: 1. Shortness of breath and hypoxia The patient presented to the hospital with progressive shortness of breath and hypoxemia. She has a known history of rheumatoid arthritis and pulmonary sarcoidosis. Her recent pulmonary function studies demonstrated a mild restrict carrillo impairment with disproportionate reduction in diffusing capacity. She is currently followed by Dr. Valdivia in the pulmonary medicine clinic. The patient remains on hydroxychloroquine and methotrexate to address her underlying rheumatologic disorder. She is also on low-dose prednisone. The patient was initiated on high-dose IV Solu-Medrol and scheduled Lasix. Overnight, her breathing quality has improved significantly and she is no longer requiring supplemental O2. Her chest imaging failed to demonstrate evidence of pulmonary embolism, but did show interstitial disease, most pronounced throughout the right hemithorax along with traction bronchiectasis. The patient does have a history of prior chest wall radiation to the right hemithorax. Given the rapid improvement in her symptoms and hypoxemia, it is certainly plausible that her presenting symptoms were the consequence of heart failure with preserved ejection fraction and/were pulmonary hypertension, which responded to diuretic therapy. She will need to be monitored closely on an outpatient basis with regard to her pulmonary function studies, given her concurrent utilization of methotrexate. In addition, the patient's rheumatologic disease has been associated with interstitial lung disease. Her sarcoidosis can also cause interstitial disease as well. We will plan to check an FLORA level today. Regardless, I believe that the patient can be transition to prednisone tomorrow, with tentative plans for a short prednisone burst at discharge. She is already scheduled to follow-up in the pulmonary medicine clinic on October 02. 2. History of obstructive sleep apnea/obesity/rheumatoid arthritis/history of breast carcinoma status postmastectomy Complicates care, management, recovery and prognosis. Continue home medications as indicated. Continue PAP therapy per outpatient regimen. This note was generated with Dragon dictation software. It may contain incorrect words, spelling, and punctuation that were not noted in checking the note before signing. HPI Consult Data Date of Consult: 09/10/22 HPI Narrative Reason for Consultation: Questionable progression of ILD HPI Narrative: The patient is a 67-year-old female, with a history as outlined below, who presented to the emergency department on September 09 with shortness of breath. The patient has a known history of pulmonary sarcoidosis along with obstructive sleep apnea, obesity and rheumatoid arthritis. She is currently followed by Dr. Valdivia in the pulmonary medicine clinic. In addition, the patient's medical history is also significant for breast carcinoma status postmastectomy in 2006. Pulmonary function studies from August 2022 demonstrated a mild restrictive ventilatory impairment with disproportionate reduction in diffusing capacity. The patient is currently scheduled to follow-up in the pulmonary medicine clinic on October 02. The patient has been maintained on Plaquenil and methotrexate for her underlying rheumatologic disease. On presentation to the emergency department, the patient was noted to be afebrile but was mildly tachycardic and tachypneic. She was initially documented to be saturating 86% on room air. Initial laboratory evaluation revealed no evidence of a leukocytosis. D-dimer was elevated at 1.35. Chemistry profile was unremarkable. CTA chest showed no evidence for pulmonary embolism. Subcarinal and hilar adenopathy was noted. Bilateral interstitial disease with traction bronchiectasis was noted, right greater than left. The patient was placed on scheduled IV steroids and Lasix. She was admitted to the progressive care unit for further management. Surface echocardiogram from June 2020 demonstrated stage I diastolic dysfunction and a pulmonary artery systolic pressure of 40 mmHg. This morning, the patient's shortness of breath has improved significantly. She is no longer requiring supplemental oxygen. [facility] Medical History Alcohol use Ambulates with cane Anemia Arthritis Arthritis, rheumatoid Cancer Cardiology follow-up encounter Chronic pain Congestive heart failure (CHF) COVID-19 virus detected (03/30/20) CPAP (continuous positive airway pressure) dependence DVT (deep venous thrombosis) Easy bruising Excessive bleeding Glucose intolerance Hemoptysis Hiatal hernia History of breast cancer History of echocardiogram History of edema History of IBS History of irregular heartbeat History of pain when walking Hypothyroid Injury of head and neck Leg cramps Malignant neoplasm of breast Migraine headache Mitral valve annular calcification Non-smoker Obesity HARRISON on CPAP Osteoarthritis Osteoporosis Other and unspecified diseases of upper respiratory tract Post-menopausal Pulmonary embolism Restless leg syndrome Rheumatoid arthritis Sarcoidosis of lung Sleep apnea Thyroid disease Varicose veins of both lower extremities Wears glasses Wears partial dentures Home Medications gabapentin 300 mg capsule 300 mg PO TIDCM 06/03/13 [History Last Taken 09/09/22] hydroxychloroquine 200 mg tablet 200 mg PO DAILYCM 07/05/15 [History Last Taken 09/09/22] cyclobenzaprine 10 mg tablet 10 mg PO TID PRN Pain 05/28/17 [History Last Taken 09/07/22] ferrous sulfate 325 mg (65 mg iron) tablet 325 mg PO DAILY 05/28/17 [History Last Taken Unknown] multivitamin (Multiple Vitamins tablet) 1 tab PO DAILY 05/28/17 [History Last Taken 09/09/22] vitamin B complex (B Complex-Vitamin B12 tablet) 1 tab PO QDAY 05/28/17 [History Last Taken 09/09/22] clobetasol 0.05 % topical ointment 1 applic topical DAILY PRN SKIN CONDITION 05/17/20 [History Last Taken Unknown] levothyroxine 75 mcg tablet 75 mcg PO DAILY 05/17/20 [History Last Taken 09/09/22] lorazepam 1 mg tablet 0.5 mg PO DAILY PRN Anxiety 05/17/20 [History Last Taken 09/06/22] methotrexate sodium 2.5 mg tablet 15 mg PO SHARP 05/17/20 [History Last Taken 09/08/22] vitamins A,C,and E-selenium capsule (Super Antioxidant capsule) 1 cap PO DAILY 05/17/20 [History Last Taken 09/09/22] nortriptyline 25 mg capsule 25 mg PO QHS 07/08/22 [History Last Taken 09/08/22] ondansetron HCl 4 mg tablet 4 mg PO Q8H PRN nausea and vomiting 07/08/22 [History Last Taken Unknown] prednisone 5 mg tablet 5 mg PO DAILY 07/08/22 [History Last Taken 09/09/22] osjxudy-ckfdinwan-zwvv 333 mg-133 mg-5 mg tablet 4 tab PO DAILY SUPPLEMENT 09/09/22 [History Last Taken 09/08/22] Allergy/AdvReac Type Severity Reaction Status Date / Time doxycycline Allergy Mild Nausea Verified 09/09/22 16:38 enalaprilat [From Vasotec] Allergy Mild Other - Verified 09/09/22 16:38 lightheadedness codeine Allergy Unknown Verified 09/09/22 16:38 midazolam HCl [From Versed] Allergy Anaphylaxis Verified 09/09/22 16:38 morphine AdvReac Nausea/Vom/ Verified 09/09/22 16:38 Diarrhea NSAIDS (Non-Steroidal AdvReac Other Verified 09/09/22 16:38 Anti-Inflamma Family History Mother Diabetes Pancreatic cancer Brother Diabetes Hypertension Seasonal allergies Melanoma Brain cancer Tongue cancer Father Colon cancer Parkinson disease Sister Hypertension Seasonal allergies Uterine cancer Lung cancer Liver cancer Surgical History H/O hernia repair H/O ligation of vein H/O thumb surgery H/O vaginal hysterectomy History of appendectomy History of carpal tunnel release of both wrists History of carpal tunnel surgery History of cholecystectomy History of foot operation History of gastric bypass History of modified radical mastectomy Hx of cataract surgery Hx of cholecystectomy Hx of hand surgery Hx of mastectomy (2006) Port-a-cath in place Social History Smoking Status: Never smoker alcohol intake: current alcohol intake frequency: holidays/special occasions only substance use type: does not use caffeine: Yes Type: carbonated beverages Number of servings: 3 and coffee Number of servings: 2 ROS ROS Narrative 10 systems were reviewed with pertinent positives as noted in the HPI above. Physical Exam Const alert, oriented x3 and no apparent distress HEENT normocephalic, head/scalp atraumatic and moist oral mucous membranes Eyes PERRL, EOMs intact bilaterally and conjunctivae normal Neck supple General: trachea midline Chest inspection of chest normal Resp Auscultation: rales right lower Cardio regular rate and regular rhythm GI normal to inspection, nondistended, normoactive bowel sounds Extremity no clubbing, cyanosis or edema Skin no rashes or lesions noted Neuro CN's II-XII intact bilaterally, moves all extremities and no focal motor deficits Psych cooperative and affect normal Lab / Micro Data 09/10/22 06:31 09/10/22 06:31 Labs: Laboratory Results - last 24 hr 09/09/22 12:57: WBC Cancelled, Corrected WBC Cancelled, RBC Cancelled, Hgb C ancelled, Hct Cancelled, MCV Cancelled, MCH Cancelled, MCHC Cancelled, RDW Std Deviation Cancelled, RDW Coeff of Edilma Cancelled, Plt Count Cancelled, MPV Cancelled, Immature Gran % (Auto) Cancelled, Neut % (Auto) Cancelled, Lymph % (Auto) Cancelled, [place] % (Auto) Cancelled, Eos % (Auto) Cancelled, Baso % (Auto) Cancelled, Absolute Neuts (auto) Cancelled, Absolute Lymphs (auto) Cancelled, Total Counted Cancelled, Neutrophils % (Manual) Cancelled, Band Neutrophils % Cancelled, Lymphocytes % (Manual) Cancelled, Monocytes % (Manual) Cancelled, Eosinophils % (Manual) Cancelled, Basophils % (Manual) Cancelled, Metamyelocytes % Cancelled, Myelocytes % Cancelled, Promyelocytes % Cancelled, Blast Cells % Cancelled, Plasma Cell % (Manual) Cancelled, Other Cells % Cancelled, Nucleated RBC % Cancelled, Nucleated RBCs/100 WBC Cancelled, Differential Comment Cancelled, Diff Path Review Cancelled, Hypersegmented Neuts Cancelled, Atypical Lymphocytes Cancelled, Reactive Lymphocytes Cancelled, Smudge Cells Cancelled, Toxic Granulation Cancelled, Toxic Vacuolation Cancelled, Dohle Bodies Cancelled, Simone Rods Cancelled, Platelet Estimate Cancelled, Plt Morphology Comment Cancelled, RBC Morphology Cancelled 09/09/22 12:57: RBC Morphology Cancelled, Polychromasia Cancelled, Hypochromasia Cancelled, Poikilocytosis Cancelled, Basophilic Stippling Cancelled, Anisocytosis Cancelled, Microcytosis Cancelled, Macrocytosis Cancelled, Spherocytes Cancelled, Sickle Cells Cancelled, Target Cells Cancelled, Tear Drop Cells Cancelled, Ovalocytes Cancelled, Stomatocytes Cancelled, [place] Bodies Cancelled, [place] Cells Cancelled, Bite Cells Cancelled, Crenated Cell Cancelled, Acanthocytes (Spur) Cancelled, Rouleaux Cancelled, Schistocytes Cancelled, D-Dimer Quant (PE/DVT) 1.35 H*, Sodium 138, Potassium 4.2, Chloride 107, Carbon Dioxide 26.0, Anion Gap 5, BUN 14, Creatinine 0.90, Est GFR (MDRD) Af Amer 80, Est GFR (MDRD) Non-Af 66, BUN/Creatinine Ratio 15.6, Glucose 100, Calcium 9.0, Troponin I High Sens 9, B-Natriuretic Peptide Cancelled 09/09/22 13:24: WBC 5.9, RBC 3.32 L, Hgb 10.2 L, Hct 32.7 L, MCV 98.5, MCH 30.7, MCHC 31.2 L, RDW Std Deviation 57.3 H, RDW Coeff of Edilma 16.2 H, Plt Count 308, MPV 9.5, Immature Gran % (Auto) 0.300, Neut % (Auto) 82.3 H, Lymph % (Auto) 7.3 L, [place] % (Auto) 7.5, Eos % (Auto) 1.7, Baso % (Auto) 0.9, Absolute Neuts (auto) 4.8, Absolute Lymphs (auto) 0.43 L, Nucleated RBC % 0, Differential Comment COMMENT, D-Dimer Quant (PE/DVT) Cancelled, B-Natriuretic Peptide 60.5 09/09/22 18:30: ESR 59 H 09/10/22 06:31: WBC 6.0, RBC 3.51 L, Hgb 10.6 L, Hct 33.7 L, MCV 96.0, MCH 30.2, MCHC 31.5 L, RDW Std Deviation 53.3 H, RDW Coeff of Edilma 15.4 H, Plt Count 275, MPV 8.9, Immature Gran % (Auto) 0.300, Neut % (Auto) 91.1 H, Lymph % (Auto) 5.2 L, [place] % (Auto) 3.2, Eos % (Auto) 0.0, Baso % (Auto) 0.2, Absolute Neuts (auto) 5.5, Absolute Lymphs (auto) 0.31 L, Nucleated RBC % 0, Anisocytosis 1+, Sodium 137, Potassium 3.4 L, Chloride 101, Carbon Dioxide 29.0, Anion Gap 7, BUN 17, Creatinine 0.67, Estim Creat Clear Calc 39.21, Est GFR (MDRD) Af Amer 112, Est GFR (MDRD) Non-Af 93, BUN/Creatinine Ratio 25.3 H, Glucose 141 H, Calcium 8.8, Total Bilirubin 0.70, AST 27, ALT 19, Alkaline Phosphatase 95, Total Protein 7.2, Albumin 3.1 L, Globulin 4.1, Albumin/Globulin Ratio 0.8 L Micro: Microbiology 09/09/22 12:57 Nasal Secretion SARS-CoV-2 & FLU Antigen (Rapid) - Final Radiology Impression Chest CTA 09/09/22 12:31 IMPRESSION: No evidence of pulmonary embolism. Stable scarring in the right lung most likely secondary to post radiation changes. Stable mild enlarged right hilar and subcarinal lymph nodes most likely secondary to the known history of sarcoidosis. Electronically Signed: Luis Miguel Gustafson MD at 14:53 EDT , Chest X-Ray 09/09/22 13:35 IMPRESSION: Increased interstitial markings in the right hemithorax and mild increased markings at the left lung base. Interstitial pneumonia should be ruled out. Radiographic follow-up recommended. Electronically Signed: Luis Miguel Gustafson MD at 14:10 EDT , Charges/Coding Visit Charges Inpatient E&M: 21713 Init Hosp L3
[2022-09-10 10:08] VITALS: BP 122/79; PULSE 92; RESP 16; TEMP 36.1; O2SAT 97
[2022-09-10] MEDS: Furosemide 40 MG/4 ML Vial IV ×2 (11:00→17:28)
[2022-09-10] MEDS: Enoxaparin 40 MG/0.4 ML Syringe SC ×2 (11:00→21:06)
[2022-09-10] MEDS: 0.9% Saline Lock 10 ML Syringe IV ×3 (12:00→21:27)
--- NOTE | 2022-09-10 12:35 | CASEMGMT ---
EVER DELANEY Face to Face with patient for initial transition planning/care coordination assessment. RN CM introduced self and role at [facility]. Patient lying in bed, alert and oriented. Patient willing to participate in assessment and is able to answer all questions appropriately. Care providers, pharmacy, and demographics verified. Patient wishes to discharge home, denies need for home health at this time. Patient states she has no further needs or concerns at this time. CM to follow for discharge planning needs that may arise. PCP: Vee Specialists: Skip tour actor; Kami lift team technician Preferred Pharmacy: [facility] Insurance: [facility] Prescription Benefit: yes Living Will/HPOA: yes, José Manuelberkley Carpenter HPOA LNOK: , son Living Arrangements: Patient lives with in a 1.5 story home with bed and bath on first floor. Patient states she is independent at home. Transportation: self, DME/HHC: Patient has shower chair, raised toilet, cane, rollator, and cpap at home. Will monitor for home oxygen, prefers [employer]. No previous HHC or SNF Disposition Plan: Patient to discharge home with family support and follow-up plans in place. Monitor for home oxygen. Brenda QUEZADA, RN, CM
[2022-09-10] MEDS: Ondansetron 4 MG/2 ML Vial IV (14:40)
[2022-09-10 16:08] VITALS: BP 129/81; PULSE 89; RESP 18; TEMP 36.4; O2SAT 95
[2022-09-10 21:03] VITALS: BP 113/78; PULSE 99; RESP 18; TEMP 36.6; O2SAT 95
[2022-09-10] MEDS: Nortriptyline 25 MG Capsule PO (21:06)
[2022-09-10] MEDS: LORazepam 1 MG Tablet 0.5 MG PO (21:15)
[2022-09-10] MEDS: Methylprednisolone Sod Succ 40 MG/ML VIAL IV (21:27)
[2022-09-11 03:00] VITALS: BP 97/57; PULSE 82; RESP 16; TEMP 36.1; O2SAT 94
[2022-09-11] MEDS: Methylprednisolone Sod Succ 40 MG/ML VIAL IV ×2 (05:12→14:56)
[2022-09-11] MEDS: 0.9% Saline Lock 10 ML Syringe IV ×2 (05:12→14:57)
[2022-09-11] MEDS: Levothyroxine 75 MCG Tablet PO (05:12)
--- NOTE | 2022-09-11 07:42 | PCM.DC ---
Discharge Instructions Diet Discharge Diet: No restrictions Activity Discharge Activity: Return to Normal Activity Weight Bearing Status: Weight bearing as tolerated Dressing / Incision Call your doctor if you observe: Fever of 101 or Higher, Coldness, Increased Pain, Numbness or Tingling, Change in Color, Inability to urinate, Inability to have a bowel movement, Using more than 1 pad per hour, Shortness of breath, Dizziness, Fainting spells, Swelling in the ankles, Chest pain, Prolonged hiccupping, Increased palpitations (irregular heartbeat) and Calf discomfort Follow Up Care When: IN 2 WEEKS Test Results: Test results from this visit will be discussed in further detail at your follow-up appointment, if applicable. Discharge Plan Admission Admit Date/Time: 09/09/22 16:09 Attending Provider: Fareed Smart Primary Care Provider: Elisa Baxter Consulting Providers: Donnell Valdivia; Edilberto De La Torre; Aman Aquino; Gatito Tran; Chaya Mcgill INSTRUCTIONAL RESOURCE TEACHER; Fernando Silverman Discharge Orders/Prescriptions Prescriptions: New potassium chloride [Klor-Con M20] 20 mEq Tablet,Er Particles/Crystals 20 meq PO DAILYCM 30 Days Qty: 30 0RF furosemide 40 mg tablet 40 mg PO DAILY Qty: 30 2RF Rx Instructions: Advise additional 40 mg dose at 5 PM for increased leg swelling or weight gain 5 pounds in 1 week. prednisone 20 mg tablet 40 mg PO DAILY 5 Days Qty: 10 0RF Continued vitamin B complex [B Complex-Vitamin B12] tablet 1 tab PO QDAY multivitamin [Multiple Vitamins] tablet 1 tab PO DAILY ferrous sulfate 325 mg (65 mg iron) tablet 325 mg PO DAILY cyclobenzaprine 10 mg tablet 10 mg PO TID PRN (Reason: Pain) lorazepam 1 mg tablet 0.5 mg PO DAILY PRN (Reason: Anxiety) clobetasol 0.05 % ointment 1 applic TOPICAL DAILY PRN (Reason: SKIN CONDITION) levothyroxine 75 mcg tablet 75 mcg PO DAILY methotrexate sodium 2.5 mg tablet 15 mg PO SHARP Super Antioxidant Capsule 1 cap PO DAILY ondansetron HCl 4 mg tablet 4 mg PO Q8H PRN (Reason: nausea and vomiting) nortriptyline 25 mg capsule 25 mg PO QHS gabapentin 300 MG capsule 300 mg PO TIDCM hydroxychloroquine 200 MG tablet 200 mg PO DAILYCM lxzhrsg-bhdrlnjpe-kndg 333-133-5 mg tablet 4 tab PO DAILY Held prednisone 5 mg tablet 5 mg PO DAILY Hold Instructions: Resume on 09/17/2022 for completion of prednisone burst therapy. Referrals / Follow Up: Elisa Baxter MD [Primary Care Provider] - Donnell Valdivia MD [Med Staff - Active Staff] - See Referral Note (on October 02) Disposition Disposition (needs filled in before D/C Order can be placed): Home, Self Care
--- NOTE | 2022-09-11 07:53 | DS.PCM_ITS ---
Providers Date of Admission: 09/09/22 Date of Discharge: 09/11/22 Primary Care Physician: Dr. Elisa Baxter MD Consultations 09/09/22 16:07 Consult: Tooth Inspector / Pulmonary Medicine Routine Consulting Provider: Pulmonary Medicine rosendo [facility] Reason for Consult: ? progression of ILD/fibrosis with respiratory failure EMERGENT Consult: No MD Notified: Yes Date Notified: 09/09/22 Time Notified: 17:38 Method of Notification: Text Reason For Visit: HYPOXIA Diagnosis Discharge Diagnosis (1) Shortness of breath: Status: Acute Code(s): R06.02 - Shortness of breath Plan 67-year-old female admitted with shortness of breath for abnormal but progressively worsening with exertional dyspnea for last 1 week, unable to lie flat. Left-sided chest pain pleuritic in nature worse with deep breathing. Denies any recent sick contact. Denies cough. Had hypoxia pulse ox in low 80s. Assessment and plan 1. Dyspnea on exertion/shortness of breath and hypoxia due to interstitial lung disease/morbid obesity/HARRISON possible OSH/pulmonary hypertension or acute on c hronic HFpEF : 2D echo on 06/02/2020 reported EF 60%. Stage I diastolic dysfunction. LA moderately enlarged. Patient has rapid improvement on furosemide 40 mg IV twice daily therefore suspicion for acute on chronic HFpEF. Heart failure core measures including intake and output, fluid restriction less than 1500 mL, daily weight monitoring, kidney and electrolytes monitoring. 09/11: Patient is still on room air. Home oxygen qualification test. Discussed with the coffee sampler. Will discharge on prednisone burst therapy, 40 mg once daily for 5 days and then back to baseline for 5 mg daily. Lasix 40 mg daily along with potassium supplement prescribed. Take an additional 40 mg dose at 5 PM for increased leg swelling or weight gain 5 pounds in 1 week. 2. Interstitial/pulmonary fibrosis mostly/almost exclusively involving right lung patient was last seen in the pulmonary clinic by Dr. Valdivia on June 2022 at that time had 5 days course of burst therapy of prednisone and was recommend ed sleep study and PFT. PFT done 2 months ago shows mild restrictive pattern with significantly diminished DLCO. CTA done in ED was negative for PE but significant interstitial disease and fibrosis in right lung. Patient also has radiotherapy to right breast cancer about 15 years ago. Patient is on methotrexate and hydroxychloroquine along with low-dose prednisone for RA and sarcoidosis. And has appointment with coffee sampler Dr. Valdivia on October 02, 2022. 3. Mild hypoxia improved with IV Lasix: Patient not on home oxygen. Hypoxia improved with IV Lasix currently on room air 09/11: Hypoxia resolved. Discharge medication reconciliation done. Discharge follow-up instructions completed. Discharge process discussed with the patient and all questions were answered to patient's satisfaction. Discharge Home Total time spent, exact 35 minutes on discharge meds reconciliation, examinati on, coordination of care with nurses and ancillary staff, review of imaging and blood test and discussion with the patient on follow-up instructions. Medications at Discharge Home Medications gabapentin 300 mg capsule 300 mg PO TIDCM 06/03/13 hydroxychloroquine 200 mg tablet 200 mg PO DAILYCM 07/05/15 cyclobenzaprine 10 mg tablet 10 mg PO TID PRN Pain 05/28/17 ferrous sulfate 325 mg (65 mg iron) tablet 325 mg PO DAILY 05/28/17 multivitamin (Multiple Vitamins tablet) 1 tab PO DAILY 05/28/17 vitamin B complex (B Complex-Vitamin B12 tablet) 1 tab PO QDAY 05/28/17 clobetasol 0.05 % topical ointment 1 applic topical DAILY PRN SKIN CONDITION 05/17/20 levothyroxine 75 mcg tablet 75 mcg PO DAILY 05/17/20 lorazepam 1 mg tablet 0.5 mg PO DAILY PRN Anxiety 05/17/20 methotrexate sodium 2.5 mg tablet 15 mg PO SHARP 05/17/20 vitamins A,C,and E-selenium capsule (Super Antioxidant capsule) 1 cap PO DAILY 05/17/20 nortriptyline 25 mg capsule 25 mg PO QHS 07/08/22 ondansetron HCl 4 mg tablet 4 mg PO Q8H PRN nausea and vomiting 07/08/22 prednisone 5 mg tablet 5 mg PO DAILY 07/08/22 aimvnxp-vrydhepnj-ywuv 333 mg-133 mg-5 mg tablet 4 tab PO DAILY SUPPLEMENT 09/09/22 furosemide 40 mg tablet 40 mg PO DAILY #30 tabs 09/11/22 potassium chloride 20 mEq tablet,extended release(part/cryst) (Klor-Con M) 20 meq PO DAILYCM 30 days #30 tabs 09/11/22 prednisone 20 mg tablet 40 mg (2 x 20 mg) PO DAILY 5 days #10 tabs 09/11/22 Physical Exam Narrative Patient complain of shortness of breath. She has dyspnea/chronic shortness of breath on exertion for long time but got worse for last 1 week. She also had pleuritic chest pain on deep breathing on both sides. She follows Dr. Valdivia. Physical exam General: Alert, Oriented x3, Cooperative HEENT: Atraumatic, PERRLA, EOMI, Normocephalic Oral: Oral mucosa moist. No Gingival or Mucosal Lesions/ Ulcerations Neck: Supple, No JVD, Negative Carotid Bruits Lungs: Air entry diminished in bilateral lung bases. Dyspnea improved. Cocci resolved. No dyspnea at rest. Crepitations improved. Cardiovascular: Regular rate, Regular Rhythm, Normal S1, Normal S2, 2+ LLSB, TR, systolic murmur Abdomen: Bowel Sounds Present, Soft, Non Tender, Non-Distended : No renal angle tenderness. No suprapubic tenderness. Extremities: No ankle edema, Capillary Refill Less than 3 Seconds Skin: No rashes, No breakdown Musculoskeletal: No Tenderness to Palpation of Joints or Extremities ROM intact. Generative arthritis of knees. Mild peripheral joint deformity due to RA. Neurological: Cranial nerves II-XII grossly intact, DTR 2+/4 and Symmetrical, Neuro grossly intact Psych/Mental Status: Flat affect. Weight / BMI Weight Weight: 226 lb 10.163 oz Body Mass Index (BMI) 44.2 ABG / Lab / Microbiology Data 09/10/22 06:31 09/10/22 06:31 Microbiology: Microbiology 09/09/22 12:57 Nasal Secretion SARS-CoV-2 & FLU Antigen (Rapid) - Final Radiography Diagnostic Testing: Radiology Impression Echocardiogram 09/09/22 16:07 Interpretation Summary Normal LV size. Left ventricular systolic function is normal. Stage 1 diastolic dysfunction. The estimated ejection fraction is 55 %. Mild to moderate (1-2+) tricuspid valve insufficiency. Ordering Physician: Fernando Silverman Referring Physician: Elisa Baxter M.D. Performed By: Julia Hunt RCS D/C Instructions Discharge Diet: No restrictions Weight Bearing Status: Weight bearing as tolerated Call your doctor if you observe: Fever of 101 or Higher, Coldness, Increased Pain, Numbness or Tingling, Change in Color, Inability to urinate, Inability to have a bowel movement, Using more than 1 pad per hour, Shortness of breath, Dizziness, Fainting spells, Swelling in the ankles, Chest pain, Prolonged hiccupping, Increased palpitations (irregular heartbeat) and Calf discomfort When: IN 2 WEEKS Meaningful Use Info Meaningful Use Diagnoses (Choose all that apply): None applicable Discharge Plan Admission Admit Date/Time: 09/09/22 16:09 Attending Provider: Fareed Smart Primary Care Provider: Elisa Baxter Consulting Providers: Donnell Valdivia; Edilberto De La Torre; Aman Aquino; Gatito Tran; Chaya Mcgill NP; Fernando Silverman Discharge Orders/Prescriptions Prescriptions: New potassium chloride [Klor-Con M20] 20 mEq Tablet,Er Particles/Crystals 20 meq PO DAILYCM 30 Days Qty: 30 0RF furosemide 40 mg tablet 40 mg PO DAILY Qty: 30 2RF Rx Instructions: Advise additional 40 mg dose at 5 PM for increased leg swelling or weight gain 5 pounds in 1 week. prednisone 20 mg tablet 40 mg PO DAILY 5 Days Qty: 10 0RF Continued vitamin B complex [B Complex-Vitamin B12] tablet 1 tab PO QDAY multivitamin [Multiple Vitamins] tablet 1 tab PO DAILY ferrous sulfate 325 mg (65 mg iron) tablet 325 mg PO DAILY cyclobenzaprine 10 mg tablet 10 mg PO TID PRN (Reason: Pain) lorazepam 1 mg tablet 0.5 mg PO DAILY PRN (Reason: Anxiety) clobetasol 0.05 % ointment 1 applic TOPICAL DAILY PRN (Reason: SKIN CONDITION) levothyroxine 75 mcg tablet 75 mcg PO DAILY methotrexate sodium 2.5 mg tablet 15 mg PO SHARP Super Antioxidant Capsule 1 cap PO DAILY ondansetron HCl 4 mg tablet 4 mg PO Q8H PRN (Reason: nausea and vomiting) nortriptyline 25 mg capsule 25 mg PO QHS gabapentin 300 MG capsule 300 mg PO TIDCM hydroxychloroquine 200 MG tablet 200 mg PO DAILYCM beubrwy-vfhzlqtdd-zqyv 333-133-5 mg tablet 4 tab PO DAILY Held prednisone 5 mg tablet 5 mg PO DAILY Hold Instructions: Resume on 09/17/2022 for completion of prednisone burst therapy. Referrals / Follow Up: Elisa Baxter MD [Primary Care Provider] - Donnell Valdivia MD [Med Staff - Active Staff] - See Referral Note (on October 02) Disposition Disposition (needs filled in before D/C Order can be placed): Home, Self Care Charges/Coding Visit Charges Inpatient E&M: 18656 Disch Hosp >30min
[2022-09-11 08:06] VITALS: BP 116/78; PULSE 95; RESP 16; TEMP 36.8; O2SAT 94
[2022-09-11 08:19] VITALS: O2SAT 87; O2SAT 92; O2SAT 95
[2022-09-11] MEDS: Potassium Chloride Oral Tablet 20 MEQ 40 MEQ PO ×2 (08:31→08:32)
[2022-09-11] MEDS: Gabapentin 300 MG Capsule PO ×2 (08:31→11:19)
[2022-09-11] MEDS: Hydroxychloroquine 200 MG Tablet PO (08:32)
[2022-09-11] MEDS: Enoxaparin 40 MG/0.4 ML Syringe SC (08:34)
[2022-09-11 08:44] VITALS: O2SAT 94
[2022-09-11 09:56] LABS: Magnesium 2.3 mg/dL (1.6-2.6)
--- NOTE | 2022-09-11 10:17 | CASEMGMT ---
EVER DELANEY Follow-up: Home O2 qualification testing noted. Referral sent to [facility] via [facility]. Face to face with pt at bedside. Explained home O2 set-up and need to call [facility] upon arrival home for concentrator delivery and set-up and tank will be sent home with pt. Pt expressed understanding. Pt states she has support of her , son and other family members and denies any additional needs at this time. DC Disposition: Home with home O2 2l/min with exertion and at hs from [facility]. Antoine Harmon RN CM
--- NOTE | 2022-09-11 11:08 | PHA.DC.MC.R ---
Pharmacy [facility] Pharm[facility] Service has performed discharge medication reconciliation and counseling for this patient. 1. FUROSEMIDE 40MG PO DAILY (MAY TAKE ADDITIONAL DOSE AT 1700 FOR WEIGHT GAIN OF 5 LBS IN 1 WEEK OR INCREASED LEG SWELLING) 2. POTASSIUM CHLORIDE 20MEQ PO DAILYCM The patient's discharge medication list was reviewed for discrepancies and discrepancies were resolved. The patient was counseled on the following discharge medications and changes in medications for homegoing were reviewed. The Reason for Use, instructions for use, and potential side effects were reviewed for all new medications. The patient's questions regarding all of their medications were answered. The patient was able to verbally demonstrate an understanding of their discharge medications. Patient counseled by pharmacy operations coordinatorReji. Medications at Discharge Home Medications gabapentin 300 mg capsule 300 mg PO TIDCM 06/03/13 hydroxychloroquine 200 mg tablet 200 mg PO DAILYCM 07/05/15 cyclobenzaprine 10 mg tablet 10 mg PO TID PRN Pain 05/28/17 ferrous sulfate 325 mg (65 mg iron) tablet 325 mg PO DAILY 05/28/17 multivitamin (Multiple Vitamins tablet) 1 tab PO DAILY 05/28/17 vitamin B complex (B Complex-Vitamin B12 tablet) 1 tab PO QDAY 05/28/17 clobetasol 0.05 % topical ointment 1 applic topical DAILY PRN SKIN CONDITION 05/17/20 levothyroxine 75 mcg tablet 75 mcg PO DAILY 05/17/20 lorazepam 1 mg tablet 0.5 mg PO DAILY PRN Anxiety 05/17/20 methotrexate sodium 2.5 mg tablet 15 mg PO SHARP 05/17/20 vitamins A,C,and E-selenium capsule (Super Antioxidant capsule) 1 cap PO DAILY 05/17/20 nortriptyline 25 mg capsule 25 mg PO QHS 07/08/22 ondansetron HCl 4 mg tablet 4 mg PO Q8H PRN nausea and vomiting 07/08/22 prednisone 5 mg tablet 5 mg PO DAILY 07/08/22 kpoctwv-jhsrmzikd-ivrv 333 mg-133 mg-5 mg tablet 4 tab PO DAILY SUPPLEMENT 09/09/22 furosemide 40 mg tablet 40 mg PO DAILY #30 tabs 09/11/22 potassium chloride 20 mEq tablet,extended release(part/cryst) (Klor-Con M) 20 meq PO DAILYCM 30 days #30 tabs 07/12/23 prednisone 20 mg tablet 40 mg (2 x 20 mg) PO DAILY 5 days #10 tabs 09/11/22
[2022-09-11 13:08] LABS: Angiotensin Convert Enzyme 32 U/L (14-82)
--- NOTE | 2022-09-11 14:19 | CHAPLAIN ---
Type of Pastoral Visit _x__ Initial Visit ___ Follow-up Visit ___ On-call Visit ___ General Patient Visit ___ Spiritual Assessment ___ Family Conference ___ Bereavement ___ Rapid Response ___ Code Blue ___ Other (describe below) Pastoral Care Referral From _x__ Patient ___ Family ___ Nurse ___ Physician ___ Advertising Coordinator ___ Wigs Salesperson ___ Other (describe below) Sacrament/Intervention _x__ Active listening ___ Anointing ___ Methodist ___ Bereavement ___ Communion _x__ Marie exploration ___ _x__ Life review _x__ Prayer ___ Reconciliation ___ Sacrament of Sick _x__ Supportive presence ___ Wedding ___ Other (describe below) Pastoral Comments patient is welcoming and talkative; pt gives detailed report on her health and recent life; pt admits that life style changes are needed and that eating habits will be the most difficult to get through; pt declares a good support system and strong involvement in sabianism; prayer is offered and pt becomes tearful; supportive listening and affirmation given
== END 2022-09-11 16:20 | disposition home or self-care (01) | DRG 196 ==
LOC: ED 15:17 → PCU 09-10 07:04
PROVIDERS: Internal Medicine Critical Care Medicine; Admitting Provider Internal Medicine; Emergency Provider Emergency Medicine; PCP Family Medicine; Visit Provider Internal Medicine
DX: J84.10 Pulmonary fibrosis, unspecified (principal); I50.33 Acute on chronic diastolic (congestive) heart failure; J96.21 Acute and chronic respiratory failure with hypoxia; Z68.41 Body mass index [BMI] 40.0-44.9, adult; I27.20 Pulmonary hypertension, unspecified; D86.0 Sarcoidosis of lung; E66.01 Morbid (severe) obesity due to excess calories; M06.9 Rheumatoid arthritis, unspecified; D64.9 Anemia, unspecified; G47.33 Obstructive sleep apnea (adult) (pediatric); E07.9 Disorder of thyroid, unspecified; G89.29 Other chronic pain; Z79.52 Long term (current) use of systemic steroids; Z86.16 Personal history of COVID-19; Z80.0 Family history of malignant neoplasm of digestive organs; Z80.1 Family history of malignant neoplasm of trachea, bronchus and lung; Z80.8 Family history of malignant neoplasm of other organs or systems; Z85.3 Personal history of malignant neoplasm of breast
CPT/HCPCS: 36415; 71046; 71275; 80048; 80053; 82164; 83735; 83880; 84484; 85025; 85379; 85652; 87428; 93005; 93306; 99285; Q9957; Q9967; A4216; C8929; J1940; J2405

== ENCOUNTER → 2022-10-10 | Outpatient (CLI) | payer MEDICARE, SELFPAY ==
[2022-10-10 13:33] VITALS: PULSE 105; PULSE 108; PULSE 111; PULSE 117; PULSE 119; PULSE 120; PULSE 121; O2SAT 86; O2SAT 89; O2SAT 90; O2SAT 91; O2SAT 94; O2SAT 95; O2SAT 97; O2SAT 98
--- NOTE | 2022-10-10 13:36 | CPS ---
PATIENT HAS O2 ESTABLISHED AT HOME THROUGH [facility]ITALIZ[place] SHE ARRIVED FOR TESTING ON RA. SPO2 STEADILY DECREASED THROUGHOUT TESTING, WITH PATIENT REQUIRING 1 REST AT 5 MIN TO APPLY 1LPM O2. SPO2 MAINTAINED MID 90'S WITH 1LPM. PATIENT WOULD LIKE A POC DEVICE INSTEAD OF TANKS DUE TO WEIGHT OF DEVICE BEING LESS AND NOT HAVING TO WORRY ABOUT RUNNING OUT WHEN OUT AND ABOUT.
--- NOTE | 2022-10-11 10:16 | WT_ITS ---
PSN 6 Minute Walk Test 6 Minute Walk Test 6 Minute Walk Test: 6 Minute Walk Test PSN:6-Minute Walk Test Start: 10/10/22 13:32 Freq: Status: Active Protocol: RESP.6MINW Document 10/10/22 13:33 [facility] (Rec: 10/10/22 13:39 [facility] [id number]) 6 Minute Walk Test Date Performed 10/10/22 Time Performed 13:00 Height 5 ft 1 in Weight: 218 lb Weight in Pounds 218.[address]: Chaya Mcgill CHILD SUPPORT INVESTIGATOR Assistive device used: Cane Pre-test Oxygen Delivery Method Room Air Pulse Ox 97 Pulse Rate (60-100) 108 H Dyspnea Codie Scale (0-10) 0 1st minute Oxygen Delivery Method Room Air Pulse Ox 95 Pulse Rate (60-100) 111 H Dyspnea Codie Scale (0-10) 0 Number of Rests Taken 0 2nd minute Oxygen Delivery Method Room Air Pulse Ox 91 Pulse Rate (60-100) 117 H Dyspnea Codie Scale (0-10) 1 Number of Rests Taken 0 3rd minute Oxygen Delivery Method Room Air Pulse Ox 90 Pulse Rate (60-100) 120 H Dyspnea Codie Scale (0-10) 1 Number of Rests Taken 0 4th minute Oxygen Delivery Method Room Air Pulse Ox 89 Pulse Rate (60-100) 119 H Dyspnea Codie Scale (0-10) 2 Number of Rests Taken 0 5th minute Oxygen Delivery Method Room Air Pulse Ox 86 Pulse Rate (60-100) 121 H Dyspnea Codie Scale (0-10) 2 Number of Rests Taken 1 6th minute Oxygen Flow Rate (L/min) 1 Oxygen Delivery Method Nasal Cannula Pulse Ox 94 Pulse Rate (60-100) 120 H Dyspnea Codie Scale (0-10) 2 Number of Rests Taken 0 Post-test Oxygen Delivery Method Room Air Pulse Ox 98 Pulse Rate (60-100) 105 H Dyspnea Codie Scale (0-10) 0 Full Laps Walked 8 Partial Lap, Number of Tiles Walked 14 Total Distance Walked (ft) 486 10/10/22 13:36 Cardiopulmonary Services by Kassy Owen PATIENT HAS O2 ESTABLISHED AT HOME THROUGH [facility] [place] (RECENT HOSPITALIZATION). SHE ARRIVED FOR TESTING ON RA. SPO2 STEADILY DECREASED THROUGHOUT TESTING, WITH PATIENT REQUIRING 1 REST AT 5 MIN TO APPLY 1LPM O2. SPO2 MAINTAINED MID 90'S WITH 1LPM. PATIENT WOULD LIKE A POC DEVICE INSTEAD OF TANKS DUE TO WEIGHT OF DEVICE BEING LESS AND NOT HAVING TO WORRY ABOUT RUNNING OUT WHEN OUT AND ABOUT. Initialized on 10/10/22 13:36 - END OF NOTE Interpretation Interpretation: The patient ambulated 486 feet over the course of 6 minutes beginning on room air with the use of a cane. Pretesting oxygen saturation was noted to be 97% on room air. With ambulation, the antoinette oxygen saturation was 86%. 1 L of supplemental oxygen was applied and the patient was able to complete the remainder of the test while maintaining appropriate oxygen saturations. Recommendations Recommendations: 1 L/min of supplemental oxygen is required with exertion.
== END | disposition home or self-care (01) ==
LOC: PSN 12:58
PROVIDERS: PCP Family Medicine; Referring Provider Nurse Practitioner Acute Care; Visit Provider Nurse Practitioner Acute Care
DX: Z99.81 Dependence on supplemental oxygen (principal)
CPT/HCPCS: 94618

== ENCOUNTER → 2022-10-24 | Outpatient (CLI) | payer MEDICARE, SELFPAY ==
--- NOTE | 2022-10-24 12:40 | BI_ITS ---
MAMMOGRAPHY - UNILATERAL SCREENING: LEFT BREAST REASON FOR EXAM: Female, 67 years old. Routine annual screening examination (unilateral). PERTINENT HISTORY: Personal history of breast cancer at age 50 status post right mastectomy. TECHNIQUE: Digital unilateral breast brannon (3D mammographic acquisition) in the CC and MLO projections. 2-D mediolateral oblique (MLO) and craniocaudad (CC) views of the left breast were obtained. CAD: Full Field Digital Mammography with Computer Added Detection was performed. COMPARISON: Screening mammogram from 10/16/2021, 04/25/2020. FINDINGS: Breast Composition: There are scattered areas of fibroglandular density. There are no dominant masses or suspicious calcifications. No other significant abnormalities are identified. There has been no significant change since the prior study. BI/SCREEN MAMM (CAD) W/BRANNON UNI L IMPRESSION: Stable left breast screening mammogram. Yearly follow-up mammogram recommended. (A) ASSESSMENT CATEGORY: BIRADS Category 1: Negative. A letter regarding these results will be sent to the patient by the facility within 30 days. Approximately 10% of breast cancers are not detected by mammography. A normal mammogram should not delay biopsy of a clinically suspicious abnormality. Electronically Signed: Bran Manuel DO at 15:58 EDT ,
--- NOTE | 2022-10-24 12:45 | BD_ITS ---
STUDY: DUAL ENERGY X-RAY ABSORPTIOMETRY / DXA REASON FOR EXAM: Female, 67 years old. V780 TECHNIQUE: Bone Mineral Density (BMD) measurements of lumbar spine and bilateral hips were obtained. COMPARISON: Comparison is made with prior study dated April 25, 2020. FINDINGS: Lumbar Spine (L1-L4): g/cm2 (0.803) / T-score (-2.0) / Z-score (-0.1) Findings are suggestive of osteopenia with a moderate fracture risk. Left Femur Total: g/cm2 (0.694) / T-score (-2.0) / Z-score (-0.7) Left Femoral Neck: g/cm2 (0.581) / T-score (-2.4) / Z-score (-0.8) Right Femur Total: g/cm2 (0.705) / T-score (-1.9) / Z-score (-0.6) Right Femoral Neck: g/cm2 (0.532) / T-score (-2.9) / Z-score (-1.2) The T-Scores on the most recent prior examination were: Lumbar Spine (L1-L4): There has been worsening of bone density since the previous examination. Left Femur Total: which represents a worsening of 1.5%. Right Femur Total: which represents an improvement of 10.5%. BD/Dexa Bone Density Study IMPRESSION: The patient is considered osteoporotic as outlined below according to World Juan Organization (WHO) criteria with a high fracture risk. There has been worsening of bone density since the previous examination. Reference Information: The T-score is the number of standard deviations above or below the standard which is normal for young adults at their peak bone mineral density. The World Health Organization (WHO) interprets the T-scores as follows: Above -1 Normal bone density Between -1 and -2.5 Osteopenia Equal to / or below -2.5 Osteoporosis As a practical clinical guideline, osteopenia may be graded as follows: Mild -1 through -1.5 Moderate -1.6 through -2.0 Severe -2.1 through -2.4 The Z-score is the number of standard deviations above or below age-matched controls. A Z-score of less than -1.5 would be considered abnormal. References: 1. NIH Osteoporosis and Related Bone Diseases www osteo.org 2. International Society for Clinical Densitometry www iscd.org 3. National Osteoporosis Foundation www nof.org Electronically Signed: Luis Miguel Gustafson MD at 15:39 EDT ,
== END | disposition home or self-care (01) ==
PROVIDERS: PCP Family Medicine; Referring Provider Obstetrics & Gynecology; Visit Provider Obstetrics & Gynecology
DX: C50.119 Malignant neoplasm of central portion of unspecified female breast (principal); Z12.31 Encounter for screening mammogram for malignant neoplasm of breast; Z90.11 Acquired absence of right breast and nipple; Z78.0 Asymptomatic menopausal state
CPT/HCPCS: 77063; 77067; 77080

== ENCOUNTER → 2022-10-28 | Outpatient (CLI) | payer MEDICARE, SELFPAY ==
[2022-10-28 15:25] LABS: Absolute Lymphocyte Count 0.48 X10^3/uL (0.83-4.51); Absolute Neutrophil Count 6.3 X10^3/uL (2.0-7.7); Basophil# 0.04 X10^3/uL; Basophil% 0.6 % (0-1); Eosinophil# 0.07 X10^3/uL; Hemoglobin 11.4 g/dL (12.0-15.0); Lymphocyte # 0.48 X10^3/ul (0.83-4.51); Lymphocyte % 6.7 % (19-41); Mean Corp Hgb Conc 30.8 g/dL (32-36); Mean Corpuscular Hgb 30.8 pg (27.0-32.0); Mean Platelet Vol. 9.6 fl (6.2-12.0); Monocyte# 0.33 X10^3/uL; Monocyte% 4.6 % (0-10); NRBC Flagged by Analyzer 0 % (0-5); Neutrophil # 6.25 X10^3/uL (2.7-7.7); Neutrophil % 86.8 % (47-70); POSITIVE DIFFERENTIAL YES; Platelet Count 324 K/mm3 (150-450); RBC Distribution Width CV 14.7 % (11.6-14.6); RBC Distribution Width SD 54.3 fl (35.1-43.9); White Blood Count 7.2 K/mm3 (4.4-11.0)
[2022-10-28 15:30] LABS: Differential Indicated SCAN CRITERIA MET
[2022-10-28 15:46] LABS: Differential Comment SCANNED
[2022-10-28 16:11] LABS: Thyroid Stim Hormone (TSH) 1.63 uIU/mL (0.358-3.74)
== END | disposition home or self-care (01) ==
PROVIDERS: PCP Family Medicine; Referring Provider Family Medicine; Visit Provider Family Medicine
DX: I50.9 Heart failure, unspecified (principal)
CPT/HCPCS: 36415; 84443; 85025

== ENCOUNTER → 2022-11-25 | Outpatient (CLI) | payer MEDICARE, SELFPAY ==
--- NOTE | 2022-11-25 13:50 | RAD_ITS ---
EXAM: XR SACRUM AND COCCYX, 2 OR MORE VIEWS CLINICAL INDICATION: Other intervertebral disc degeneration, lumbar region TECHNIQUE: Frontal and lateral views of the sacrum and coccyx. COMPARISON: No relevant prior studies available. FINDINGS: SACRUM/COCCYX: Unremarkable. No displaced fracture. No destructive or sclerotic lesions. Note that overlapping bowel shadows may however obscure fine detail in the frontal view. Sacroiliac joints are unremarkable. SOFT TISSUES: Unremarkable. No soft tissue swelling or gas. RAD/Sacrum-Coccyx min 2 Views IMPRESSION: Unremarkable sacro-coccygeal spine. Electronically Signed: Deandre Red MD at 23:37 EDT ,
--- NOTE | 2022-11-25 13:50 | RAD_ITS ---
INDICATION: Other intervertebral disc degeneration, lumbar region EXAMINATION/TECHNIQUE: X-RAY - XR Spine Lumbar 2 or 3 Views COMPARISON: Pelvis radiograph January 02, 2015. FINDINGS: VERTEBRAE: 5 nonrib-bearing lumbar type vertebra with normal morphology and preserved lumbar lordosis. Chronic anterior vertebral height loss in the lower thoracic spine with anterior bridging osteophytes and exaggerated kyphosis. Chronic anterior compression deformity at L1 and L2. Severe facet arthropathy L4-L5 and L5-S1 with moderate facet arthropathy L3-L4. Associated grade 1 degenerative anterolisthesis of L4 on L5. No visible pars defect. No acute fracture or acute compression deformity is suggested. Mild bilateral hip and sacroiliac joint degenerative change. DISCS: L5-S1 disc height loss. INCLUDED ABDOMEN: Included bowel gas pattern is non-obstructive. [Upper abdominal surgical clips and bowel suture. RAD/Lumbar Spine 2 or 3 Views IMPRESSION: Diffuse spondylosis with severe lower lumbar facet arthropathy and degenerative listhesis. Chronic upper lumbar and lower thoracic anterior compression deformities with anterior bridging osteophytes and exaggerated lower thoracic kyphosis. Electronically Signed: Devang Salinas MD at 7:12 EDT Reading Location ID and State: [facility] / [place] Tel , Service support ,
== END | disposition home or self-care (01) ==
PROVIDERS: PCP Family Medicine; Referring Provider Anesthesiology Pain Medicine; Visit Provider Anesthesiology Pain Medicine
DX: M51.36 Other intervertebral disc degeneration, lumbar region (principal)
CPT/HCPCS: 72100; 72220

== ENCOUNTER → 2022-12-12 | Outpatient (CLI) | payer MEDICARE, SELFPAY ==
--- NOTE | 2022-12-12 14:25 | RAD_ITS ---
STUDY: X-RAY CHEST REASON FOR EXAM: Female, 67 years old. Productive cough TECHNIQUE: PA and lateral views of the chest. COMPARISON: 09/09/2022. FINDINGS: Diffuse right-sided interstitial prominence noted suggestive of pneumonitis, cannot exclude underlying pulmonary fibrosis. The left hemithorax is clear. There is no demonstrated pleural abnormality. Normal size heart. Normal mediastinum and isis. Normal visualized pulmonary arteries. There is atherosclerotic calcification of the aortic arch with tortuosity. There is demineralization of the osseous structures. Degenerative disease of the spine. Surgical clips within the left abdomen. RAD/Chest PA and Lateral IMPRESSION: Right-sided pneumonitis with underlying pulmonary fibrosis not excluded. Clear left hemithorax with no acute process within the left lung parenchyma seen. Electronically Signed: Daisy Valenzuela MD at 19:01 EDT ,
== END | disposition home or self-care (01) ==
LOC: MTRAD 14:25
PROVIDERS: PCP Family Medicine; Referring Provider Family Medicine; Visit Provider Family Medicine
DX: R05.8 Other specified cough (principal)
CPT/HCPCS: 71046

== ENCOUNTER → 2022-12-23 | Outpatient (CLI) | payer MEDICARE, SELFPAY ==
[2022-12-23 17:21] LABS: Amphetamine Urine VISTA NEGATIVE (<1000 ng/mL); Barbiturate Urine VISTA NEGATIVE (< 200 ng/mL); Benzodiazepine Urine VISTA NEGATIVE (< 200 ng/mL); Cocaine Urine VISTA NEGATIVE (< 300 ng/mL); Ecstacy Urine VISTA NEGATIVE (< 500 ng/mL); Methadone Urine VISTA NEGATIVE (< 300 ng/mL); PCP Urine VISTA NEGATIVE (< 25 ng/mL); THC Urine VISTA NEGATIVE (< 50 ng/mL); Vista UDS pH Range 6
== END | disposition home or self-care (01) ==
LOC: LAB 15:32
PROVIDERS: PCP Family Medicine; Referring Provider Anesthesiology Pain Medicine; Visit Provider Anesthesiology Pain Medicine
DX: F11.20 Opioid dependence, uncomplicated (principal)
CPT/HCPCS: 80307

== ENCOUNTER → 2023-01-20 | Outpatient (CLI) | payer MEDICARE, SELFPAY ==
--- NOTE | 2023-01-20 16:25 | RAD_ITS ---
STUDY: X-RAY - CERVICAL SPINE REASON FOR EXAM: Female, 67 years old. PAIN TECHNIQUE: 4 view(s) of the cervical spine were obtained. COMPARISON: October 09, 2016 FINDINGS: Normal anterior atlantoaxial articulation. Normal odontoid process. Normal cervical lordosis. No evidence for acute fracture or subluxation.. Grade 1 retrolisthesis at C4-5 . Mild narrowing of the C5-6 disc space The soft tissue structures are unremarkable. RAD/Cerv Spine 2 or 3 Views IMPRESSION: Mild spondylosis. No acute fracture or other significant bony pathology. Incidental finding of diffuse bilateral perihilar interstitial infiltrate or pulmonary edema more severe on the right not significantly changed since prior study on December 12, 2022 Electronically Signed: Romeo Chen MD at 22:59 EST ,
== END | disposition home or self-care (01) ==
PROVIDERS: PCP Family Medicine; Referring Provider Anesthesiology Pain Medicine; Visit Provider Anesthesiology Pain Medicine
DX: M47.9 Spondylosis, unspecified (principal)
CPT/HCPCS: 72040

== ENCOUNTER → 2023-01-29 | Outpatient (CLI) | payer MEDICARE, SELFPAY | END | disposition home or self-care (01) | LOC: PSN 10:05 | PROVIDERS: PCP Family Medicine; Referring Provider Nurse Practitioner Family; Visit Provider Nurse Practitioner Family | DX: I50.32 Chronic diastolic (congestive) heart failure (principal); R00.0 Tachycardia, unspecified | CPT/HCPCS: 93225; 93226 ==

== ENCOUNTER → 2023-03-13 | Outpatient (CLI) | payer MEDICARE, SELFPAY ==
--- OUTSIDE RECORDS SUMMARY | 2023-03-13 07:01 | XMS RPT_ITS | CCD ---
Author Name Unknown Address [address] [place] [address] Organization [facility] Care Team Providers Care 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 Name Role Phone KARINA DE LEON Unavailable Unavailable KARINA DE LEON Unavailable Unavailable TERESA ROUSSEAU III Unavailable Unavailable TERESA ROUSSEAU III Unavailable Unavailable Elisa Baxter Primary Care Provider Elisa Baxter Primary Care Provider Elisa Baxter Primary Care Provider SYDNEY WAHL Referring Unavailable ELISA BAXTER Primary Care Unavailable Allergies Allergy Classification Reported Allergen(s) Allergy Type Date of Onset Reaction(s) Facility (15 sources) Adhesive Tape; Translations: [ADHESIVE TAPE (ROSINS)] Propensity to adverse reactions (disorder) 6 Rash [facility] Repository (15 sources) enalapril; Translations: [ENALAPRIL MALEATE] Drug Allergy 9 [facility] Repository (15 sources) morphine; Translations: [MORPHINE] Drug Allergy 6 Intolerance [facility] Repository (15 sources) NSAIDs; Translations: [NSAIDS (NON-STEROIDAL ANTI-INFLAMMATOR Y DRUG)] Propensity to adverse reactions to drug (disorder) 5 Vomiting [facility] Repository Medications Current Medications Medication Drug Class(es) Dates Sig (Normalized) Sig (Original) methotrexate 2.5 mg oral tablet (14 sources) Folate Analog Metabolic Inhibitor Start: 12-15-2022 take 6 tablets by mouth once methotrexate 2.5 mg tablet Take 6 tablets by mouth every Friday. 75 tablet 1 12/15/2022 Active Completed/Discontinued Medications Medication Drug Class(es) Dates Sig (Normalized) Sig (Original) ascorbic acid 500 mg oral tablet (13 sources) Vitamin C take 1 tablet by roverto th three times daily ascorbic acid (VITAMIN C) 500 mg tablet Take 500 mg by mouth three times daily. 0 Active Problems Active Problems Problem Classification Problem Date Documented Date Episodic/Chronic Cancer of breast (1 source) Malignant neoplasm of central part of female breast; Translations: [Malignant neoplasm of central portion of unspecified female breast] 01-18-2023 Chronic Immunity disorders (14 sources) Pulmonary sarcoidosis; Translations: [Sarcoidosis of lung] Onset: 03-29-2015 03-12-2019 Chronic Menopausal disorders (3 sources) Menopausal syndrome; Translations: [Menopausal and female climacteric states] Chronic Osteoarthritis (20 sources) Primary osteoarthritis, unspecified ankle and foot; Translations: [Osteoarthritis of finger joint] Onset: 12-21-2015 12-21-2015 Chronic Other hereditary and degenerative nervous system conditions (13 sources) Restless legs; Translations: [Restless legs syndrome] Onset: 02-21-2015 02-21-2015 Chronic Other nervous system disorders (1 source) Other chronic postprocedural pain; Translations: [Other chronic postprocedural pain] Onset: 02-19-2017 Chronic Other nervous system disorders (13 sources) Chronic pain; Translations: [Other chronic pain] Onset: 03-12-2019 03-12-2019 Chronic Other nutritional; endocrine; and metabolic disorders (13 sources) Body mass index 40+ - severely obese; Translations: [Morbid (severe) obesity due to excess calories] Onset: 09-05-2017 09-05-2017 Chronic Residual codes; unclassified (13 sources) Obstructive sleep apnea syndrome; Translations: [Obstructive sleep apnea (adult) (pediatric)] Onset: 02-21-2015 02-26-2021 Chronic Rheumatoid arthritis and related disease (18 sources) Rheumatoid arthritis of multiple joints; Translations: [Rheumatoid arthritis without rheumatoid factor, multiple sites] Onset: 12-27-2015 Chronic Thyroid disorders (13 sources) Acquired hypothyroidism; Translations: [Hypothyroidism, unspecified] Onset: 12-27-2015 12-27-2015 Chronic Past or Other Problems Problem Classification Problem Date Documented Da te Episodic/Chronic Cancer of breast (13 sources) History of malignant neoplasm of breast; Translations: [Personal history of malignant neoplasm of breast] Onset: 07-02-2014 03-12-2019 Episodic Deficiency and other anemia (13 sources) Anemia; Translations: [Anemia, unspecified] Onset: 10-23-2007 03-12-2019 Episodic Fracture of lower limb (13 sources) Stress fracture of left foot; Translations: [Stress fracture, left foot, initial encounter for fracture] Onset: 01-02-2016 01-02-2016 Episodic Other connective tissue disease (13 sources) Digital mucous cyst of left hand; Translations: [Ganglion, left hand] Onset: 12-21-2015 12-21-2015 Episodic Other gastrointestinal disorders (13 sources) History of bypass of stomach; Translations: [Bariatric surgery status] Onset: 12-27-2015 12-27-2015 Episodic Other non-traumatic joint disorders (7 sources) Shoulder pain; Translations: [Pain in right shoulder] Onset: 11-10-2017 11-10-2017 Episodic Other non-traumatic joint disorders (6 sources) Pain in right shoulder; Translations: [Pain in joint, shoulder region] Onset: 11-10-2017 11-10-2017 Episodic Other screening for suspected conditions (not mental disorders or infectious disease) (13 sources) Ferritin level low; Translations: [Abnormal level of blood mineral] Onset: 02-21-2015 02-21-2015 Episodic Other upper respiratory disease (13 sources) Nasal congestion; Translations: [Nasal congestion] Onset: 03-29-2015 03-29-2015 Episodic Spondylosis; intervertebral disc disorders; other back problems (13 sources) Sacroiliac joint pain; Translations: [Sacrococcygeal disorders, not elsewhere classified] Onset: 04-19-2011 04-19-2011 Episodic Results Test Name Value Interpretation Reference Range Facil ity Vital Signs Date Time Vital Sign Value Performing Clinician Melissa ambrosio 05-25-2021 14:02-0400 Body height 154.9 cm Sydney Wahl APRN.CNP Work Phone: [facility] 05-25-2021 14:02-0400 Body weight 103.19 kg Sydney Wahl APRN.CNP Work Phone: [facility] 05-25-2021 14:02-0400 Diastolic blood pressure 87 mm[Hg] Sydney Wahl APRN.CNP Work Phone: [facility] 05-25-2021 14:02-0400 Heart rate 95 /min Sydney Wahl TREE DOCTOR.SECURITY OPERATIONS ENGINEER Work Phone: [facility] 05-25-2021 14:02-0400 Systolic blood pressure 132 mm[Hg] Sydney Wahl TREE DOCTOR.SECURITY OPERATIONS ENGINEER Work Phone: [facility] Encounters Encounter Date Encounter Type Care Provider Facility Start: 12-06-2022 Jesse De La Torre MD Work Phone: Orthopaedics Procedures Date Procedure Procedure Detail Performing Clinician Start: 05-18-2021 Adult depression scr eening assessment Sydney Wahl TREE DOCTOR.SECURITY OPERATIONS ENGINEER Work Phone: Start: 10-22-2019 Radex shoulder compl ete minimum 2 views Sydney Wahl TREE DOCTOR.SECURITY OPERATIONS ENGINEER Work Phone: Start: 04-17-2012 Mammography Sydney jesus TREE DOCTOR.[facility] Work Phone: Start: 12-05-2008 Colonoscopy Sydney jesus TREE DOCTOR.[facility] Work Phone: Plan of Treatment Date Care Activity Detail Author Start: 03-22-2031 Colonoscopy COLONOSCOPY [facility] Start: 03-22-2031 COLORECTAL CANCER SCREENING COLORECTAL CANCER SCREENING [facility] Start: 05-17-2025 DIABETES SCREEN DIABETES SCREEN [facility] Start: 05-17-2025 Diabetes Screening Diabetes Screenin g [facility] Start: 09-11-2024 DIABETES SCREEN DIABETES SCREEN [facility] Start: 05-21-2024 DIABETES SCREEN DIABETES SCREEN [facility] Start: 10-25-2023 Mammography Mammogram Screening [facility] Start: 11-01-2022 Covid-19 Vaccine () Covid-19 Vaccine () [facility] Start: 11-01-2022 Influenza vaccination C [facility] Start: 05-18-2022 Adult depression scr eening assessment DEPRESSION SCREENING [facility] Start: 03-03-2022 ADVANCE DIRECTIVE DISCUSSION ADVANCE DIRECTIVE DISCUSSION [facility] Start: 03-03-2022 DEPRESSION ASSESSMENT DEPRESSION ASS ESSMENT [facility] Start: 11-01-2021 Influenza vaccination INFLUENZA (#1) [facility] Start: 03-24-2021 COVID-19 VACCINE (4 - Booster for Pfizer series) COVID-19 VACCINE (4 - Booster for Pfizer series) [facility] Start: 03-16-2021 COVID-19 VACCINE (4 - Booster for Pfizer series) COVID-19 VACCINE (4 - Booster for Pfizer series) [facility] Start: 03-03-2021 ADVANCE DIRECTIVE DISCUSSION ADVANCE DIRECTIVE DISCUSSION [facility] Start: 06-17-2020 BONE DENSITY BONE DENSITY [facility] Start: 06-17-2020 Pneumococcal Vaccine : 65+ (2 - PCV) Pneumococcal Vaccine: 65+ (2 - PCV) [facility] Start: 06-17-2020 PNEUMOVAX AGE 65 AND OVER WITH 5YR LOOKBACK (#1) PNEUMOVAX AGE 65 AND OVER WITH 5YR LOOKBACK (#1) [facility] Start: 2015 RSV Vaccine (1 - 1-d ose 60+ series) RSV Vaccine (1 - 1-dose 60+ series) [facility] Start: 04-17-2013 Mammography MAMMOGRAM [facility] Start: 06-17-2005 SHINGRIX VACCINE (1 of 2) SHINGRIX V ACCINE (1 of 2) [facility] Start: 12-31-2004 PNEUMOCOCCAL: 65+ (2 - PCV) PNEUMOCOCCAL: 65+ (2 - PCV) [facility] Start: 06-17-2000 COLOGUARD (FIT-DNA) COLOGUARD (FIT-D NA) [facility] Start: 06-17-[address] COLONOGRAPHY [facility] Start: 06-17-2000 FECAL OCCULT BLOOD FECAL OCCULT BLOO D [facility] Start: 06-17-2000 Lipid 1996 panel - S bel or Plasma Lipid Screening [facility] Start: 06-17-2000 LIPID SCREEN LIPID SCREEN [facility] Start: 06-17-2000 SIGMOIDOSCOPY SIGMOIDOSCOPY [facility] Start: 06-17-1974 SHINGRIX VACCINE (1 of 2) SHINGRIX V ACCINE (1 of 2) [facility] Start: 06-17-1974 Urine microalbumin profile [facility] Start: 06-17-1973 ANNUAL PCP TEAM COSTUMER ASSISTANT ARUN DISEASE VISIT ANNUAL PCP TEAM CHRONIC DISEASE VISIT [facility] Start: 06-17-1973 HIV SCREENING HIV SCREENING [facility] Immunizations Immunization Date Immunization Notes Care Provider Sky pepe 12-21-2021 influenza virus vacc ine, unspecified formulation Chuck De La Torre MD Work Phone: [facility] 12-24-2006 influenza virus vacc ine, unspecified formulation Sydney Wahl TREE DOCTOR.SECURITY OPERATIONS ENGINEER Work Phone: [facility] Work Phone: 12-31-2005 influenza virus vacc ine, unspecified formulation Sydney Wahl TREE DOCTOR.SECURITY OPERATIONS ENGINEER Work Phone: [facility] Work Phone: 01-01-2004 pneumococcal polysaccharide vaccine, 23 valent Sydney Wahl TREE DOCTOR.SECURITY OPERATIONS ENGINEER Work Phone: [facility] Work Phone: Payers Date Payer Category Payer Medicare UHC AARP MEDICAR E [facility] AARP MEDICARE HMO [id number] 2020-Present [phone] [address] [address] [place] [address] [facility] [id number] 2020 Medicare [id number] 2019 Medicare [id number] Social History Date Type Detail Facility Start: 07-20-2012 Tobacco smoking stat us MDIS Never smoked tobacco [facility] Start: 10-22-2019 End: 05-25-2021 Alcohol intake Current drinker of alcohol (finding) [facility] Start: 02-21-2015 History SDOH Alcohol Comment occasionally glass wine or mixed drink [facility] Start: 1955 Sex Assigned At Female C [facility] Start: 09-21-2019 End: 09-11-2021 Exposure to SARS-CoV-2 (event) Not sure [facility] Start: 07-20-2012 Tobacco use and exposure Smoke less tobacco non-user [facility] Start: 03-20-2022 End: 11-01-2022 History of Social function [facility] Start: 03-20-2022 End: 11-01-2022 Area Deprivation Index [facility] National Score (1-10 0), lower number is lower risk 57 [facility] Start: 02-17-2021 Gender identity Identifies as female gender (finding) [facility] Start: 02-17-2021 Sexual orientation Heterosexual (иван patel) [facility] Medical Equipment Procedure Code Equipment Code Equipment Origin al Text Equipment Identifier Dates Graft Cancellous Chips Bone Void Crushed Freeze Dry 15ml (0.1-4mm) - [id number] Start: 02-17-2017 Clinical Notes 08-25-2017 to 12-06-2022 Telephone Encounter - Francia Wallace - 12/06/2022 12:04 PM EDTTelephone Encounter - Francia Wallace - 10/03/2022 1:47 PM EDTTelephone Encounter - Nataliia Johnson - 10/01/2022 1:52 PM EDT Note Date & Type Note Facility 12-06-2022 Miscellaneous Notes Formattin g of this note is different from the original. Most recent Rheumatology visit: 05/25/2021 (with Sydney Wahl) Recent Office Visits - This Specialty Visits with Tx 02/28/2017 Arthritis, midfoot Other Visits 04/30/2018 Suture granuloma, initial encounter Orthopaedics Jorge Garcia MD 10/16/2017 Osteoarthritis of finger of right hand Orthopaedics Jorge Garcia MD 10/08/2017 Arthritis, midfoot Orthopaedics Karina De Leon MD Upcoming Rheumatology Appointments - Next 365 Days No appointments to display Last Ophthalmology Check for Plaquenil (Hydroxychloroquine) Last OCT Macula Exam No resulted procedures found. Last Visual Field Exam No resulted procedures found. CBC: None on file in the last 6 months Vitamin D: None on file in the last 6 months LFT: None on file in the last 6 months Hepatic Function: Creatinine: None on file in the last 6 months ESR/CRP: None on file in the last 6 months Uric Acid: None on file in the last 6 months Open Standing (Multiple Instance) Lab Orders None Open Future (Single Instance) Lab Orders None documented in this encounter [facility] 10-03-2022 Miscellaneous Notes Formattin g of this note might be different from the original. Patient has not been seen by Dr. De La Torre in 3 years, and not been seen by DANIEL since 05/2021. Called patient, no answer. Left a message that she will need to call and schedule an appointment, labs will be ordered at that visit. Francia Wallace RN Pt came in expecting to have blood work done for . It appears the labs have . Pt stated she would come back. Please review and advise. Nataliia Potts PSS documented in this encounter [facility] 09-12-2022 Miscellaneous Notes Formattin g of this note might be different from the original. Pt assisted to schedule yearly exam and orders written for [facility] for mammogram and bone density. Pt will call later to schedule. Maria L Cabrales LPN Refill sent but she needs to be seen thanks Please see pt's mychart message and further advise how to proceed from here. Attempting to schedule pt to be seen in the office for medication follow up. Maria L Cabrales LPN documented in this encounter [facility] 05-27-2022 Miscellaneous Notes Formattin g of this note is different from the original. Most recent Rheumatology visit: 05/25/2021 (with Sydney Wahl) Recent Office Visits - This Specialty Visits with Tx 02/28/2017 Arthritis, midfoot Other Visits 04/30/2018 Suture granuloma, initial encounter Orthopaedics Jorge Garcia MD 10/16/2017 Osteoarthritis of finger of right hand Orthopaedics Jorge Garcia MD 10/08/2017 Arthritis, midfoot Orthopaedics Karina De Leon MD Upcoming Rheumatology Appointments - Next 365 Days Visit Type Date Time Department [facility] 07/09/2022 4:00 PM LOC MAIN A50 Last Ophthalmology Check for Plaquenil (Hydroxychloroquine) Last OCT Macula Exam No resulted procedures found. Last Visual Field Exam No resulted procedures found. CBC: CBC Latest Ref Rng & Units 12/26/2021 05/17/2022 WBC 3.70 - 11.00 k/uL 6.49 7.12 HEMOGLOBIN 11.5 - 15.5 g/dL 12.4 10.7(L) HEMOGLOBIN TOTAL, WHOLE BLOOD 12.0 - 16.0 g/dL - - HEMOGLOBIN, FATEMEH 11.5 - 15.5 g/dL - - HEMATOCRIT 36.0 - 46.0 % 39.4 33.5(L) PLATELETS 150 - 400 k/uL 282 256 ABS NEUT (ANC) 1.45 - 7.50 k/uL - - ABS NEUT, FATEMEH 1.45 - 7.50 k/uL - - ABS LYMP, FATEMEH 1.00 - 4.00 k/uL - - ABS LYMPH 1.00 - 4.00 k/uL - - Vitamin D: None on file in the last 6 months LFT: CMP Latest Ref Rng & Units 12/26/2021 05/17/2022 SODIUM 136 - 144 mmol/L 136 137 SODIUM, FATEMEH 136 - 145 mmol/L - - SODIUM, FATEMEH 136 - 145 mmol/L - - POTASSIUM 3.7 - 5.1 mmol/L 4.3 4.4 POTASSIUM, FATEMEH 3.5 - 5.1 mmol/L - - CHLORIDE 97 - 105 mmol/L 101 102 CHLORIDE, FATEMEH 98 - 107 mmol/L - - CO2 22 - 30 mmol/L 25 29 CO2, FATEMEH 21.0 - 32.0 mmol/L - - GLUCOSE 74 - 99 mg/dL 111(H) 104(H) GLUCOSE, FATEMEH 70 - 99 mg/dL - - BUN 7 - 21 mg/dL 11 19 BUN, FATEMEH 7 - 18 mg/dL - - CREATININE 0.58 - 0.96 mg/dL 0.77 0.67 CREATININE, FATEMEH 0.6 - 1.0 mg/dL - - CALCIUM, FATEMEH 8.5 - 10.1 mg/dL - - CALCIUM, TOTAL 8.5 - 10.2 mg/dL 9.4 8.9 AST 13 - 35 U/L 33 22 AST, FATEMEH 15 - 37 U/L - - ALT 7 - 38 U/L 18 13 ALT, FATEMEH 30 - 65 U/L - - ALKALINE PHOSPHATASE 34 - 123 U/L 116 95 Creatinine: Creatinine Latest Ref Rng & Units 12/26/2021 05/17/2022 CREAT 0.58 - 0.96 mg/dL 0.77 0.67 ESR/CRP: ESR, WSR Latest Ref Rng & Units 12/26/2021 05/17/2022 WSR 0 - 20 mm/hr 27(H) 29(H) CRP Latest Ref Rng & Units 12/26/2021 05/17/2022 CRP <0.9 mg/dL 0.7 0.5 Uric Acid: None on file in the last 6 months Open Standing (Multiple Instance) Lab Orders Remain Interval Expires Ordered Last Rel. CBC [SQCBC] 11/12 Every 3 months 08/29/22 08/29/21 05/17/22 Auth. provider: Sydney Wahl APRN.SECURITY OPERATIONS ENGINEER Assoc. diagnoses: Sarcoidosis of lung (HCC) COMP METABOLIC PANEL [SQCMP] 11/12 Every 3 months 08/29/22 08/29/21 05/17/22 Auth. provider: Sydney Wahl APRN.SECURITY OPERATIONS ENGINEER Assoc. diagnoses: Sarcoidosis of lung (HCC) SED RATE WESTERGREN [SQWSR] 11/12 Every 3 months 08/29/22 08/29/21 05/17/22 Auth. provider: Sydney Wahl APRN.SECURITY OPERATIONS ENGINEER Assoc. diagnoses: Sarcoidosis of lung (HCC) C-REACTIVE PROTEIN (CRP) [SQCRP] 11/12 Every 3 months 08/29/22 08/29/21 05/17/22 Auth. provider: Sydney Wahl APRN.SECURITY OPERATIONS ENGINEER Assoc. diagnoses: Sarcoidosis of lung (HCC) Open Future (Single Instance) Lab Orders None documented in this encounter [facility] 05-27-2022 Miscellaneous Notes Formattin g of this note is different from the original. Most recent Rheumatology visit: 05/25/2021 (with Sydney Wahl) Recent Office Visits - This Specialty 04/30/2018 Suture granuloma, initial encounter Orthopaedics Jorge Garcia MD 10/16/2017 Osteoarthritis of finger of right hand Orthopaedics Jorge Garcia MD 10/08/2017 Arthritis, midfoot Orthopaedics Karina De Leon MD Upcoming Rheumatology Appointments - Next 365 Days Visit Type Date Time Department [facility] Last Ophthalmology Check for Plaquenil (Hydroxychloroquine) Last OCT Macula Exam No resulted procedures found. Last Visual Field Exam No resulted procedures found. CBC: CBC Latest Ref Rng & Units 12/26/2021 05/17/2022 WBC 3.70 - 11.00 k/uL 6.49 7.12 HEMOGLOBIN 11.5 - 15.5 g/dL 12.4 10.7(L) HEMOGLOBIN TOTAL, WHOLE BLOOD 12.0 - 16.0 g/dL - - HEMOGLOBIN, FATEMEH 11.5 - 15.5 g/dL - - HEMATOCRIT 36.0 - 46.0 % 39.4 33.5(L) PLATELETS 150 - 400 k/uL 282 256 ABS NEUT (ANC) 1.45 - 7.50 k/uL - - ABS NEUT, FATEMEH 1.45 - 7.50 k/uL - - ABS LYMP, FATEMEH 1.00 - 4.00 k/uL - - ABS LYMPH 1.00 - 4.00 k/uL - - Vitamin D: None on file in the last 6 months LFT: CMP Latest Ref Rng & Units 12/26/2021 05/17/2022 SODIUM 136 - 144 mmol/L 136 137 SODIUM, FATEMEH 136 - 145 mmol/L - - SODIUM, FATEMEH 136 - 145 mmol/L - - POTASSIUM 3.7 - 5.1 mmol/L 4.3 4.4 POTASSIUM, FATEMEH 3.5 - 5.1 mmol/L - - CHLORIDE 97 - 105 mmol/L 101 102 CHLORIDE, FATEMEH 98 - 107 mmol/L - - CO2 22 - 30 mmol/L 25 29 CO2, FATEMEH 21.0 - 32.0 mmol/L - - GLUCOSE 74 - 99 mg/dL 111(H) 104(H) GLUCOSE, FATEMEH 70 - 99 mg/dL - - BUN 7 - 21 mg/dL 11 19 BUN, FATEMEH 7 - 18 mg/dL - - CREATININE 0.58 - 0.96 mg/dL 0.77 0.67 CREATININE, FATEMEH 0.6 - 1.0 mg/dL - - CALCIUM, FATEMEH 8.5 - 10.1 mg/dL - - CALCIUM, TOTAL 8.5 - 10.2 mg/dL 9.4 8.9 AST 13 - 35 U/L 33 22 AST, FATEMEH 15 - 37 U/L - - ALT 7 - 38 U/L 18 13 ALT, FATEMEH 30 - 65 U/L - - ALKALINE PHOSPHATASE 34 - 123 U/L 116 95 Creatinine: Creatinine Latest Ref Rng & Units 12/26/2021 05/17/2022 CREAT 0.58 - 0.96 mg/dL 0.77 0.67 ESR/CRP: ESR, WSR Latest Ref Rng & Units 12/26/2021 05/17/2022 WSR 0 - 20 mm/hr 27(H) 29(H) CRP Latest Ref Rng & Units 12/26/2021 05/17/2022 CRP <0.9 mg/dL 0.7 0.5 Uric Acid: None on file in the last 6 months Open Standing (Multiple Instance) Lab Orders Remain Interval Expires Ordered Last Rel. CBC [SQCBC] 11/12 Every 3 months 08/29/22 08/29/21 05/17/22 Auth. provider: Sydney Wahl APRN.SECURITY OPERATIONS ENGINEER Assoc. diagnoses: Sarcoidosis of lung (HCC) COMP METABOLIC PANEL [SQCMP] 11/12 Every 3 months 08/29/22 08/29/21 05/17/22 Auth. provider: Sydney Wahl APRN.SECURITY OPERATIONS ENGINEER Assoc. diagnoses: Sarcoidosis of lung (HCC) SED RATE WESTERGREN [SQWSR] 11/12 Every 3 months 08/29/22 08/29/21 05/17/22 Auth. provider: Sydney Wahl APRN.SECURITY OPERATIONS ENGINEER Assoc. diagnoses: Sarcoidosis of lung (HCC) C-REACTIVE PROTEIN (CRP) [SQCRP] 11/12 Every 3 months 08/29/22 08/29/21 05/17/22 Auth. provider: Sydney Wahl APRN.SECURITY OPERATIONS ENGINEER Assoc. diagnoses: Sarcoidosis of lung (HCC) Open Future (Single Instance) Lab Orders None documented in this encounter [facility] 03-27-2022 Miscellaneous Notes Formattin g of this note is different from the original. Images from the original note were not included. Sydney Wahl APRN.SONAM You 3 minutes ago (9:44 AM) She can but I don't do these so she would need to see ortho hand for it, pls let her know and see if we can get her in for a cmc injection with ortho Sydney Wahl APRN.SONAM You routed conversation to Sydney Wahl APRN.SONAM Called pt to offer ortho appt. PSS may schedule if pt calls back. Kacie Goldberg RN Sydney can pt get an injection? Kacie Goldberg RN Renae Carpenter is calling Sydney Wahl APRN.CNP today with concern regarding thumb on right hand. It is extremely painful, red swollen and hard to move. She went to her PCP and had an xray that showed this is an arthritis flare up. She is interested in an injection if Sydney agree. Scheduled VV for 04/10/22 but was hoping to be seen in office if possible. No chief complaint on file. Patient has been identified by name and birthdate. Duration of symptoms: 1 weeks Person calling: self Call patient at: [phone] Was an appointment scheduled: Yes: Date/Time: 04/10/22 Closing statement: Symptom Call: Thank you for calling [facility], your call is very important. A nurse will call in approximately 2-4 hours during business hours. If this is an emergency, please contact 911. Elisa Chang documented in this encounter [facility] 10-08-2021 Miscellaneous Notes Formattin g of this note might be different from the original. filed See pt's mychart refill request below. Maria L Cabrales LPN documented in this encounter [facility] 08-27-2021 Miscellaneous Notes Patient arrived at [facility] location. Patient was requesting standing orders for blood work, none were found. Please update her chart with standing orders for the lab. Thank you. documented in this encounter [facility] 06-07-2021 Miscellaneous Notes Filed Last annual with SW 06/01/20. Pending Prescriptions Disp Refills PAROXETINE 10 MG TABLET 180 tablet 1 Sig: Take 2 tablets by mouth once daily. WILLA: No RX INSTRUCTIONS: Mychart request Nani Gabriel RN documented in this encounter [facility] 06-04-2021 Miscellaneous Notes Most recent Rheumatology visit: 05/25/2021 (with Sydney Wahl) Upcoming Rheumatology Appointments - Next 365 Days Visit Type Date Time Department [facility] 10/01/2021 10:00 AM [facility] 03/25/2022 9:00 AM [facility] Last Ophthalmology Check for Plaquenil (Hydroxychloroquine) Last OCT Macula Exam No resulted procedures found. Last Visual Field Exam No resulted procedures found. CBC: CBC Latest Ref Rng & Units 02/13/2021 05/21/2021 WBC 3.70 - 11.00 k/uL 6.03 5.71 HEMOGLOBIN 11.5 - 15.5 g/dL 11.9 12.0 HEMOGLOBIN TOTAL, WHOLE BLOOD 12.0 - 16.0 g/dL - - HEMOGLOBIN, [place] 11.5 - 15.5 g/dL - - HEMATOCRIT 36.0 - 46.0 % 36.7 36.5 PLATELETS 150 - 400 k/uL 243 234 ABS NEUT (ANC) 1.45 - 7.50 k/uL - - ABS NEUT, [place] 1.45 - 7.50 k/uL - - ABS LYMP, [place] 1.00 - 4.00 k/uL - - ABS LYMPH 1.00 - 4.00 k/uL - - Vitamin D: None on file in the last 6 months LFT: CMP Latest Ref Rng & Units 02/13/2021 05/21/2021 SODIUM 136 - 144 mmol/L 138 138 SODIUM, [place] 136 - 145 mmol/L - - SODIUM, [place] 136 - 145 mmol/L - - POTASSIUM 3.7 - 5.1 mmol/L 4.4 4.4 POTASSIUM, [place] 3.5 - 5.1 mmol/L - - CHLORIDE 97 - 105 mmol/L 104 102 CHLORIDE, [place] 98 - 107 mmol/L - - CO2 22 - 30 mmol/L 25 25 CO2, [place] 21.0 - 32.0 mmol/L - - GLUCOSE 74 - 99 mg/dL 106(H) 108(H) GLUCOSE, [place] 70 - 99 mg/dL - - BUN 7 - 21 mg/dL 9 12 BUN, [place] 7 - 18 mg/dL - - CREATININE 0.58 - 0.96 mg/dL 0.64 0.67 CREATININE, [place] 0.6 - 1.0 mg/dL - - CALCIUM, [place] 8.5 - 10.1 mg/dL - - CALCIUM, TOTAL 8.5 - 10.2 mg/dL 8.5 8.6 AST 13 - 35 U/L 21 30 AST, [place] 15 - 37 U/L - - ALT 7 - 38 U/L 10 13 ALT, [place] 30 - 65 U/L - - ALKALINE PHOSPHATASE 34 - 123 U/L 85 86 Creatinine: Creatinine Latest Ref Rng & Units 02/13/2021 05/21/2021 CREAT 0.58 - 0.96 mg/dL 0.64 0.67 ESR/CRP: None on file in the last 6 months Uric Acid: None on file in the last 6 months Open Standing (Multiple Instance) Lab Orders Remain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 [place], [place] 12/27/15 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 Specialty Start Date End Date Elisa Baxter [facility] - General 02/10/06 [place], [place] 12/27/15 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 Start Date End Date Elisa Baxter [facility] - General 02/10/06 [place], [place] 12/27/15 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 Specialty Start Date End Date Elisa Baxter [facility] - General 02/10/06 [place], [place] 12/27/15 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 Specialty Start Date End Date Elisa Baxter [facility] General 02/10/06 [place], [place] 12/27/15 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 Specialty Start Date End Date Elisa Baxter [facility] - General 02/10/06 [place], [place] 12/27/15 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 Specialty Start Date End Date Elisa Baxter [facility] General 02/10/06 [place], [place] 12/27/15 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 Specialty Start Date End Date Elisa Baxter [facility] - General 02/10/06 [place], [place] 12/27/15 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 Specialty Start Date End Date Elisa Baxter PCP - General 02/10/06 [place], [place] 12/27/15 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 Specialty Start Date End Date Elisa Baxter PCP - General 02/10/06 [place], [place] 12/27/15 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 Specialty Start Date End Date Elisa Baxter [facility] 02/10/06 [place], [place] 12/27/15 FOR RECORDS PERTAINING TO PATIENTS WHO ARE OR HAVE BEEN ENROLLED IN A CHEMICAL DEPENDENCY/SUBSTANCEABUSE PROGRAM, SOME INFORMATION MAY BE OMITTED. This clinical summary was aggregated from multiple sources. Caution should be exercised in using it in the provision of clinical care. This summary normalizes information from multiple sources, and as a consequence, information in this document may materially change the coding, format and clinical context of patient data. In addition, data may be omitted in some cases. CLINICAL DECISIONS SHOULD BE BASED ON THE PRIMARY CLINICAL RECORDS. [facility]. provides no warranty or guarantee of the accuracy or completeness of information in this document.
--- NOTE | 2023-03-13 18:27 | STRESSREP ---
Stress Test Report Pharmacologic myocardial perfusion stress test. 67-year-old lady with a history of chest pain Resting EKG demonstrates sinus rhythm with a rate of 82 bpm. Resting blood pressure is 120/82 mmHg. 0.4 mg of regadenoson was infused per usual protocol followed by rapid intravenous saline flush injection. Continuous EKG monitoring was performed. The maximum heart rate was 88 bpm which was 57% of max impacted heart rate the maximum workload was 1 metabolic equivalent. At rest there were no ST or T wave changes noted to suggest ischemia and at peak infusion nonspecific ST changes were noted which did not meet the criteria for ischemia. No clinical angina is noted. The final blood pressure was 120/88 mmHg. Myocardial perfusion protocol. 14.5 mCi of technetium 99m sestamibi was injected at rest. 0.4 mg of regadenoson was infused per usual protocol. At peak infusion 44.4 mCi of technetium 99m sestamibi was injected stress images were obtained stress and rest images were reconstructed and compared in the short axis vertical long and horizontal long axis. Gated images were also obtained. Perfusion SPECT analysis: Review of the stress images demonstrate normal uptake of tracer noted in all areas of the myocardium. The resting images similar demonstrated normal uptake of tracer noted in all areas of the myocardium. No areas of reversibility are noted to suggest ischemia and no previous infarct is noted. Gated SPECT analysis: The gated ejection fraction is 70%. Conclusion: Normal pharmacologic myocardial perfusion stress test. Preserved ejection fraction.
== END | disposition home or self-care (01) ==
PROVIDERS: PCP Family Medicine; Referring Provider Nurse Practitioner Family; Visit Provider Nurse Practitioner Family
DX: R07.9 Chest pain, unspecified (principal); I11.0 Hypertensive heart disease with heart failure; I50.32 Chronic diastolic (congestive) heart failure; R06.02 Shortness of breath; E66.9 Obesity, unspecified; Z85.3 Personal history of malignant neoplasm of breast
CPT/HCPCS: 78452; 93017; A9500; A4216; J2785

== ENCOUNTER → 2023-05-01 | Outpatient (CLI) | payer MEDICARE, SELFPAY ==
--- NOTE | 2023-05-01 08:50 | BI_ITS ---
MAMMOGRAPHY - UNILATERAL DIAGNOSTIC: LEFT BREAST REASON FOR EXAM: Female, 67 years old. Left breast milky discharge and pain. PERTINENT HISTORY: Personal history of breast cancer. Prior right mastectomy. TECHNIQUE: Digital unilateral breast aysha (3D mammographic acquisition) in the CC and MLO projections. 2-D mediolateral oblique (MLO) and craniocaudad (CC) views of both breasts were obtained. CAD: Full Field Digital Mammography with Computer Added Detection was performed. COMPARISON: Comparison is made with prior study dated October 24, 2022 and October 16, 2021. FINDINGS: Breast Composition: There are scattered areas of fibroglandular density. There are no dominant masses or suspicious calcifications. No other significant abnormalities are identified. There has been no significant change since the prior study. BI/DIAG MAMM W/CAD, UNILAT IMPRESSION: Stable unilateral diagnostic mammogram. The patient''s history of left areolar discharge, correlation with ultrasound is recommended. ASSESSMENT CATEGORY: BIRADS Category 0: Incomplete. Need additional imaging evaluation. A letter regarding these results will be sent to the patient by the facility within 30 days. Approximately 10% of breast cancers are not detected by mammography. A normal mammogram should not delay biopsy of a clinically suspicious abnormality. Electronically Signed: Luis Miguel Gustafson MD at 11:29 EST ,
--- NOTE | 2023-05-01 08:50 | US_ITS ---
STUDY: ULTRASOUND BREAST - LEFT REASON FOR EXAM: Female, 67 years old. Nipple discharge in the left breast. TECHNIQUE: Axial and longitudinal images of the LEFT breast were performed with a high resolution ultrasound transducer. # OF IMAGES: 32 COMPARISON: Comparison is made with prior mammogram done earlier today. FINDINGS: LEFT Breast: The retroareolar region of the breast was examined with ultrasound. There is evidence of dilated ducts. US/Breast Limited Unilateral IMPRESSION: Dilated ducts in the subareolar region. ASSESSMENT CATEGORY: BIRADS Category 2: Benign. A letter regarding these results will be sent to the patient by the facility within 30 days. Electronically Signed: Luis Miguel Gustafson MD at 15:23 EST ,
--- OUTSIDE RECORDS SUMMARY | 2023-05-01 09:36 | XMS RPT_ITS | CCD ---
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 Drug Abuse Patient Records regulations: The Federal rules restrict any use of the information to criminally investigate or prosecute any alcohol or drug abuse patient.[facility] HospitalIn the event this information is protected by the Federal Confidentiality of Alcohol and Drug Abuse Patient Records regulations: The Federal rules restrict any use of the information to criminally investigate or prosecute any alcohol or drug abuse patient.[facility] HospitalIn the event this information is protected by the Federal Confidentiality of Alcohol and Drug Abuse Patient Records regulations: The Federal rules restrict any use of the information to criminally investigate or prosecute any alcohol or drug abuse patient.[facility] Reason for Visit (unrecogniz ed section and [...] Care Teams (unrecognized sec tion and content) Real Estate Instructor Relationship Specialty Start Date End Date Elisa Baxter [facility] - General 02/10/06 [place], [place] 12/27/15 Real Estate Instructor Relationship Specialty Start Date End Date Elisa Baxter [facility] - General 02/10/06 [place], [place] 12/27/15 Real Estate Instructor Relationship Specialty Start Date End Date Elisa Baxter [facility] - General 02/10/06 [place], [place] 12/27/15 Real Estate Instructor Relationship Specialty Start Date End Date Elisa Baxter [facility] - General 02/10/06 [place], [place] 12/27/15 Real Estate Instructor Relationship Specialty Start Date End Date Elisa Baxter [facility] General 02/10/06 [place], [place] 12/27/15 Real Estate Instructor Relationship Specialty Start Date End Date Elisa Baxter [facility] - General 02/10/06 [place], [place] 12/27/15 Real Estate Instructor Relationship Specialty Start Date End Date Elisa Baxter [facility] General 02/10/06 [place], [place] 12/27/15 Real Estate Instructor Relationship Specialty Start Date End Date Elisa Baxter [facility] - General 02/10/06 [place], [place] 12/27/15 Real Estate Instructor Relationship Specialty Start Date End Date Elisa Baxter [facility] - General 02/10/06 [place], [place] 12/27/15 Real Estate Instructor Relationship Specialty Start Date End Date Elisa Baxter [facility] - General 02/10/06 [place], [place] 12/27/15 Real Estate Instructor Relationship Specialty Start Date End Date Elisa Baxter [facility] - [facility] 02/10/06 [place], [place] 12/27/15 FOR RECORDS PERTAINING TO PATIENTS [...] BE BASED ON THE PRIMARY CLINICAL RECORDS. [facility] [employer] [facility]. provides no warranty or guarantee of the accuracy or completeness of information in this document.
== END | disposition home or self-care (01) ==
LOC: OPBI 08:50
PROVIDERS: PCP Family Medicine; Visit Provider Family Medicine
DX: N64.52 Nipple discharge (principal)
CPT/HCPCS: 76642; 77061; 77065; G0279

== ENCOUNTER → 2023-05-12 | Outpatient (CLI) | payer MEDICARE, SELFPAY ==
[2023-05-12 17:45] LABS: Amphetamine Urine VISTA NEGATIVE (<1000 ng/mL); Barbiturate Urine VISTA NEGATIVE (< 200 ng/mL); Benzodiazepine Urine VISTA NEGATIVE (< 200 ng/mL); Cocaine Urine VISTA NEGATIVE (< 300 ng/mL); Ecstacy Urine VISTA NEGATIVE (< 500 ng/mL); Methadone Urine VISTA NEGATIVE (< 300 ng/mL); PCP Urine VISTA NEGATIVE (< 25 ng/mL); THC Urine VISTA NEGATIVE (< 50 ng/mL); Vista UDS pH Range 6
== END | disposition home or self-care (01) ==
LOC: LAB 16:49
PROVIDERS: PCP Family Medicine; Referring Provider Anesthesiology Pain Medicine; Visit Provider Anesthesiology Pain Medicine
DX: F11.20 Opioid dependence, uncomplicated (principal)
CPT/HCPCS: 80307

== ENCOUNTER → 2023-06-09 | Outpatient (CLI) | payer MEDICARE, SELFPAY ==
[2023-06-09 16:26] LABS: Color, Urine Yellow (Yellow); Glucose, Dipstick Normal (Normal); Ketone-Dipstick Negative (Negative); Leukocyte Esterase-Dipstick 500 /ul (Negative); Nitrite-Dipstick Negative (Negative); Occult Blood-Urine Negative /ul (Negative); Protein-Dipstick Negative (Negative); Urine Bilirubin Dipstick Negative (Negative); Urine Clarity Clear (Clear); Urine Urobilinogen Normal (Normal); Urine pH 6.5 (5.0 - 8.0)
[2023-06-09 16:32] LABS: Amphetamine Urine VISTA NEGATIVE (<1000 ng/mL); Barbiturate Urine VISTA NEGATIVE (< 200 ng/mL); Benzodiazepine Urine VISTA NEGATIVE (< 200 ng/mL); Cocaine Urine VISTA NEGATIVE (< 300 ng/mL); Ecstacy Urine VISTA NEGATIVE (< 500 ng/mL); Methadone Urine VISTA NEGATIVE (< 300 ng/mL); PCP Urine VISTA NEGATIVE (< 25 ng/mL); THC Urine VISTA NEGATIVE (< 50 ng/mL); Vista UDS pH Range 6
== END | disposition home or self-care (01) ==
LOC: LAB 15:35
PROVIDERS: PCP Family Medicine; Referring Provider Anesthesiology Pain Medicine; Visit Provider Anesthesiology Pain Medicine
DX: F11.20 Opioid dependence, uncomplicated (principal)
CPT/HCPCS: 80307; 81002

== ENCOUNTER → 2023-09-16 | Outpatient (CLI) | payer MEDICARE, SELFPAY ==
--- NOTE | 2023-09-16 12:56 | RAD_ITS ---
STUDY: X-RAY - RIGHT SHOULDER REASON FOR EXAM: Female, 68 years old. Injury. TECHNIQUE: 5 view(s) of the shoulder. COMPARISON: None. FINDINGS: There is mild degenerative arthrosis of the glenohumeral articulation. Normal acromioclavicular joint. Normal acromion. Normal humeral head and visualized proximal humerus. Surgical clips are seen overlying the right breast. Increased markings in the right lung. This may represent either scarring and/or infiltrate. Follow-up recommended. RAD/Shoulder min 2 Views IMPRESSION: Mild degenerative changes of the glenohumeral joint. Abnormal appearance of the right lung as described. Electronically Signed: Luis Miguel Gustafson MD at 13:54 EDT ,
== END | disposition home or self-care (01) ==
LOC: MTRAD 12:56
PROVIDERS: PCP Family Medicine; Referring Provider Physician Assistant Medical; Visit Provider Physician Assistant Medical
DX: T14.90XA Injury, unspecified, initial encounter (principal)
CPT/HCPCS: 73030

== ENCOUNTER → 2023-11-10 | Outpatient (CLI) | payer MEDICARE, SELFPAY ==
--- NOTE | 2023-11-10 11:20 | RAD_ITS ---
INDICATION: shortness of breath EXAMINATION/TECHNIQUE: X-RAY - XR Chest 2 Views COMPARISON: Prior study dated: 12/12/2022 FINDINGS: LINES/DEVICES: None. LUNGS: Elevation of the right hemidiaphragm. Diffuse increased interstitial markings in the right lung essentially unchanged likely due to pulmonary fibrosis. No focal infiltrate is seen. No evidence of pleural effusions. MEDIASTINUM AND CARDIOVASCULAR STRUCTURES: Cardiac silhouette not enlarged. Central airways and mediastinal contour are unremarkable. BONES AND SOFT TISSUES: Stable soft tissues and osseous structures. RAD/Chest PA and Lateral IMPRESSION: 1. No significant change since previous examination. 2. No new infiltrate is seen. Electronically Signed: Holden Huizar MD at 14:44 EDT ,
[2023-11-10 12:36] LABS: BNP,B-Type NATRIURETIC PEPTIDE 239.2 pg/mL (0-100)
[2023-11-10 12:52] LABS: Anion Gap 6 (5-15); BUN 13 mg/dL (7-18); BUN/Creat Ratio 15.8 RATIO (10-20); Calcium,Total 9.5 mg/dL (8.5-10.1); Chloride 100 mmol/L (98-107); Creatinine, Serum 0.82 mg/dL (0.55-1.02); EST Glomerular Filtration Rate 73 mL/min (>60); Est Glom Filt Rate - Afr Amer 89 mL/min (>60); Glucose 120 mg/dL (74-106); Potassium 4.3 mmol/L (3.5-5.1); Sodium Level 136 mmol/L (136-145)
== END | disposition home or self-care (01) ==
LOC: RAD 11:19
PROVIDERS: PCP Family Medicine; Referring Provider Nurse Practitioner Acute Care; Visit Provider Nurse Practitioner Acute Care
DX: R06.02 Shortness of breath (principal)
CPT/HCPCS: 36415; 71046; 80048; 83880

== ENCOUNTER → 2023-11-24 | Outpatient (CLI) | payer MEDICARE, SELFPAY | END | disposition home or self-care (01) | LOC: LAB 11:14 | PROVIDERS: PCP Family Medicine; Referring Provider Nurse Practitioner Acute Care; Visit Provider Nurse Practitioner Acute Care | DX: R05.9 Cough, unspecified (principal) | CPT/HCPCS: 87070; 87205 ==

== ENCOUNTER → 2024-01-20 | Outpatient (CLI) | payer MEDICARE, SELFPAY ==
[2024-01-20 15:48] LABS: Anion Gap 5 (5-15); BUN 14 mg/dL (7-18); Calcium,Total 9.5 mg/dL (8.5-10.1); Chloride 98 mmol/L (98-107); Cholesterol 178 mg/dL (200); Creatinine, Serum 0.78 mg/dL (0.55-1.02); EST Glomerular Filtration Rate 78 mL/min (>60); Est Glom Filt Rate - Afr Amer 95 mL/min (>60); Glucose 98 mg/dL (74-106); High Density Lipoprotein 101 mg/dL; Sodium Level 136 mmol/L (136-145); T4 Total, Thyroxin 9.1 ug/dL (4.8-13.9); Triglycerides 87 mg/dL; Very Low Density Lipoprotein 17 mg/dL (5-40)
== END | disposition home or self-care (01) ==
LOC: MFPLAB 10:38
PROVIDERS: PCP Family Medicine; Visit Provider Family Medicine
DX: E03.9 Hypothyroidism, unspecified (principal); I10 Essential (primary) hypertension
CPT/HCPCS: 36415; 80048; 80061; 84436; 84443

== ENCOUNTER 2024-01-26 10:01 | Outpatient (RCR) | payer MEDICARE, SELFPAY ==
--- NOTE | 2024-01-26 11:02 | HP.PTEVAL ---
Patient's Visit Information Visit Information Visit Information: NEHAL ELIZONDO is a 68 year old F referred to Physical Therapy by SIMON Weber with a diagnosis of SPINAL STENOSIS ,LUMBAR. Date of Evaluation: 01/26/24 Physical Therapist: Brett Rivero, PT, Cert MDT, OCS Visit Plan Frequency: 2x /Week Duration: 4 Weeks Plan: PRECAUTIONS: OSTEOPOROSIS PT INTERVENTIONS DLS ,POSTURAL EX'S ,BLE STRENGTH ( HIP) ,AND ACTIVITY MODIFICATION Subjective Subjective: This 68 y/o female presents to physical therapy with lumbar pain spinal stenosis. Patient has back pain ~ 15 years . Patient seen Orthopedic DR MONTES who was recommended from DR Gupta. Did x-rays showed DDD and osteopenia . Recommended PT. Patient medications vicodin. DR also order MRI . Patient has had pain management. Patient has had pain injections 1 month . Location symmetrical lumbar to bilateral hamstrings . Described as ache. Aggravating factors standing ,walking and uses cane. Alleviating factors sitting and rest. Difficulty lifting . Bowel/bladder-. Patient has difficulty sleeping. c/o paresthesia/tingling -. Coughing/sneezing + .Patient has osteoporosis and 2L02 . Patient has comorbities influences condition. Patient condition affects QOL and function walking. Patient goals to decrease pain. SOCIAL: VOCATION: RETIRED Pain Bilateral Back: Pain Intensity (Out of 10): 7 Pain Intensity Range: 10 Bilateral Lower Extremity: Pain Intensity (Out of 10): 7 Pain Intensity Range: 10 Objective Objective: POSTURE: mild forward hips/knees flexed GAIT: ambulate with cane and 02 slow luis miguel NEURO: denies paresthesia/tingling ,reflexes L3-4,L4-5,L5-S1 1/3 SYMMETRIES: align PALAPTION: unremarkable FLEXABILITY: WFL LUMBAR ROM: flexion min loss ,extension mod loss ,side glides min loss MMT: quads/hams 4/5 ,( peak force) hip flexion 12.1 right ,left 21.2 Special Tests L/S Slump test left side: Negative L/S Slump test right side: Negative L/S Left Straight Leg Raise: Negative L/S Right Straight Leg Raise: Negative Lumbar Standing: Flexion - Mechanical Response: No effect Lumbar Standing: Flexion - Symptoms During Testing: No effect Lumbar Standing: Flexion - Symptoms After Testing: No effect Lumbar Standing: Extension - Mechanical Response: No effect Lumbar Standing: Extension - Symptoms During Testing: Increases Lumbar Standing: Extension - Symptoms After Testing: No worse Lumbar Standing: Right Side Glides - Mechanical Response: No effect Lumbar Standing: Right Side [place] - Symptoms During Testing: No effect Lumbar Standing: Right Side [place] - Symptoms After Testing: No effect Lumbar Standing: Left Side [place] - Mechanical Response: No effect Lumbar Standing: Left Side [place] - Symptoms During Testing: No effect Lumbar Standing: Left Side [place] - Symptoms After Testing: No effect Balance/Special Test Scores Oswestry Low Back Score: 24 Goals Goal 1:: Patient to be I with HEP Goal Time Frame: 4-6 Weeks Goal 2:: Patient to demonstrate 50% improvement with walking/standing Goal Time Frame: 4-6 Weeks Goal 3:: Patient to improve lumbar ROM function of recovery to put on shoes Goal Time Frame: 4-6 Weeks Goal 4:: Patient to improve quick dash by 5 points to improve function. Goal Time Frame: 4-6 Weeks Goal 5:: Patient to improve peak force hip by 5 points to improve function Goal Time Frame: 4-6 Weeks Rehabilitation Potential Physical Therapy Diagnosis: This patient has lumbar pain affects legs worse with walking/standing better sitting and weakness in hips and affects ADLS and housework tasks thus benefit from skilled PT Rehabilitation Potential: Good Anticipated Interventions Patient/Client Instruction: Educate patient on: Condition and Plan of Care For the Purpose of:: To decrease pain, To increase ROM, To improve muscle performance and motor function, To improve ability to perform ADL's, To increase tolerance to activity/condition/position, To improve ability of physical actions for home/community/work/leisure, To decrease soft tissue restriction, To increase flexibility/ROM, To reduce risk of recurrence and To improve tolerance to ADL's Therapeutic Exercise to Include: Strength training, Balance training, Body mechanics, Postural training, Flexibilty training and Dynamic Lumbar Stabilization Comment: HIPS For the Purpose of:: To decrease pain, To decrease swelling/inflammation, To improve muscle performance and motor function, To improve ability to perform ADL's, To increase tolerance to activity/condition/position, To improve ability of physical actions for home/community/work/leisure, To improve gait and locomotor functions, To decrease soft tissue restriction, To increase flexibility/ROM, To prevent re-injury and To improve tolerance to ADL's TENS: Yes IF ES: Yes Thermo therapy (hot pack): Yes Ultrasound (thermal/non thermal): Yes For the Purpose of:: To decrease pain and To increase ROM Text: Thank you for the opportunity to evaluate your patient. For Medicare and Medicare HMO plans, please review the plan of care and approve it. It will need to be FAXED BACK to us at [phone] for Medicare purposes. For Medicare only, by signing this I certify the plan of care. Please let me know if there are questions or concerns regarding this plan of care. Physician Signature: Date:
--- NOTE | 2024-03-05 11:00 | HP.PT.NRP ---
Patient Information Patient Information: NEHAL ELIZONDO was seen in my office for initial evaluation on 01/26/24. The following Plan of Care was established for this patient: POC Established Initial Frequency: 2x /Week Initial Duration: 4 Weeks Anticipated Interventions Patient/Client Instruction: Educate patient on: Condition and Plan of Care For the Purpose of:: To decrease pain, To increase ROM, To improve muscle performance and motor function, To improve ability to perform ADL's, To increase tolerance to activity/condition/position, To improve ability of physical actions for home/community/work/leisure, To decrease soft tissue restriction, To increase flexibility/ROM, To reduce risk of recurrence and To improve tolerance to ADL's Therapeutic Exercise to Include: Strength training, Balance training, Body mechanics, Postural training, Flexibilty training and Dynamic Lumbar Stabilization For the Purpose of:: To decrease pain, To decrease swelling/inflammation, To improve muscle performance and motor function, To improve ability to perform ADL's, To increase tolerance to activity/condition/position, To improve ability of physical actions for home/community/work/leisure, To improve gait and locomotor functions, To decrease soft tissue restriction, To increase flexibility/ROM, To prevent re-injury and To improve tolerance to ADL's TENS: Yes IF ES: Yes Thermo therapy (hot pack): Yes Ultrasound (thermal/non thermal): Yes For the Purpose of:: To decrease pain and To increase ROM Last Seen Last Seen: This patient was last seen in our office . Pertinent comments regarding their Physical therapy will appear below: Patient was seen for PT for HEP for spinal lumbar stenosis thus d/c At this point I will be discontinuing this patient from physical therapy. I would be happy to see this patient again in the future if found appropriate by the physician. Thank you! Brett Rivero, PT, Cert MDT, OCS Balance/Gait/Functional tests Balance/Special Test Scores Oswestry Low Back Score: 24
== END 2024-01-26 19:00 | disposition home or self-care (01) ==
LOC: PT 10:01
PROVIDERS: PCP Family Medicine; Referring Provider Student in an Organized Health Care Education/Training Program; Visit Provider Student in an Organized Health Care Education/Training Program
DX: M48.061 Spinal stenosis, lumbar region without neurogenic claudication (principal)
CPT/HCPCS: 97162

== ENCOUNTER → 2024-02-16 | Outpatient (CLI) | payer MEDICARE, SELFPAY ==
--- NOTE | 2024-02-16 08:19 | MRI_ITS ---
EXAM: MR LUMBAR SPINE WITHOUT INTRAVENOUS CONTRAST CLINICAL INDICATION: pain TECHNIQUE: Multiplanar and multisequence MR images of the lumbar spine without intravenous contrast. COMPARISON: Lumbar spine radiographs, 01/09/2024 FINDINGS: VERTEBRAE: Large Schmorl''s node at the inferior endplate of L5 and multiple Schmorl''s nodes in the lower thoracic and upper lumbar region. Multilevel endplate osteophytosis and facet arthrosis. No evidence of spondylolysis. Degenerative anterolisthesis of L4 upon L5. SPINAL CORD: No significant abnormality. Normal position and signal intensity of the conus medullaris. SOFT TISSUES: No significant abnormality. DISCS/SPINAL CANAL/NEURAL FORAMINA: T12-L1: Disc bulge resulting in mild spinal canal stenosis. No significant neural foraminal narrowing. L1-L2: Disc bulge and mild bilateral facet arthrosis. Mild spinal canal and bilateral neural foraminal narrowing. L2-L3: Disc bulge with superimposed central disc herniation and mild bilateral facet arthrosis. Mild spinal canal and bilateral neural foraminal narrowing. L3-L4: Disc bulge and mild to moderate bilateral facet arthrosis. No significant spinal canal stenosis. Mild bilateral neural foraminal narrowing. L4-L5: Severe bilateral facet arthrosis with grade 1 degenerative anterolisthesis. Disc uncovering/pseudobulge. Mild spinal canal stenosis and moderate bilateral neural foraminal narrowing. L5-S1: Moderate to severe bilateral facet arthrosis. Moderate bilateral neural foraminal narrowing. No disc herniation or spinal canal stenosis. MRI/Spine Lumbar (Routine) IMPRESSION: Multilevel degenerative changes in the lumbar spine resulting in variable degrees of spinal canal or neural foraminal stenosis as detailed above. No definitive nerve root impingement. Electronically Signed: Brian Healy DO at 20:04 EST ,
== END | disposition home or self-care (01) ==
LOC: MRI 11:47
PROVIDERS: PCP Family Medicine; Referring Provider Student in an Organized Health Care Education/Training Program; Visit Provider Student in an Organized Health Care Education/Training Program
DX: M54.50 Low back pain, unspecified (principal)
CPT/HCPCS: 72148

== ENCOUNTER 2024-02-23 17:24 | Inpatient (IN) | payer MEDICARE, SELFPAY ==
[2024-02-23 17:27] VITALS: BP 123/97; PULSE 121; RESP 24; TEMP 36.6; O2SAT 100
[2024-02-23 17:54] VITALS: BMI 42.0
--- NOTE | 2024-02-23 18:21 | EKG12_ITS ---
Test Reason : DYSRHYTHMIA Blood Pressure : */* mmHG Vent. Rate : 111 BPM Atrial Rate : 111 BPM P-R Int : 180 ms QRS Dur : 94 ms QT Int : 344 ms P-R-T Axes : 40 -51 16 degrees QTcB Int : 467 ms Sinus tachycardia with Premature atrial complexes Incomplete right bundle branch block Left anterior fascicular block Abnormal ECG Confirmed by SHARAD MCCABE, TOSIN ([id number]), editorial cartoonist HILL WRIGHT ([id number]) on 02/26/2024 2:25:42 PM Referred By: David Granda Confirmed By: TOSIN OROURKE MD
--- NOTE | 2024-02-23 18:50 | RAD_ITS ---
STUDY: X-RAY CHEST REASON FOR EXAM: Female, 68 years old. SOB TECHNIQUE: PA and lateral views of the chest. COMPARISON: November 10, 2023. FINDINGS: There are monitoring devices. There is stable elevation right hemidiaphragm. There are stable interstitial and airspace opacities of the right lung. There is no demonstrated pleural abnormality. Normal size heart. Normal mediastinum and isis. Normal visualized pulmonary arteries. Normal visualized aortic arch and descending thoracic aorta. Normal visualized thoracic spine. Normal visualized ribs, clavicles, and shoulders. There is no demonstrated abnormality of the visualized soft tissue structures of the upper abdomen. RAD/Chest PA and Lateral IMPRESSION: Right lung fibrosis and infiltrates or edema. Electronically Signed: Jorge Magaña MD at 20:50 EST ,
[2024-02-23 19:07] LABS: Absolute Lymphocyte Count 1.16 X10^3/uL (0.83-4.51); Absolute Neutrophil Count 5.1 X10^3/uL (2.0-7.7); Basophil# 0.07 X10^3/uL; Eosinophil# 0.25 X10^3/uL; Eosinophils% 3.4 % (0-5); Hematocrit 38.5 % (37-47); Hemoglobin 11.9 g/dL (12.0-15.0); Lymphocyte # 1.16 X10^3/ul (0.83-4.51); Mean Corp Hgb Conc 30.9 g/dL (32-36); Mean Corpuscular Hgb 31.5 pg (27.0-32.0); Mean Corpuscular Volume 101.9 fL (81-99); Mean Platelet Vol. 9.1 fl (6.2-12.0); Monocyte# 0.63 X10^3/uL; Monocyte% 8.7 % (0-10); NRBC Flagged by Analyzer 0 % (0-5); Neutrophil # 5.12 X10^3/uL (2.7-7.7); Neutrophil % 70.5 % (47-70); Platelet Count 291 K/mm3 (150-450); RBC Distribution Width CV 13.2 % (11.6-14.6); Red Blood Count 3.78 M/mm3 (4.2-5.4); White Blood Count 7.3 K/mm3 (4.4-11.0)
[2024-02-23 19:19] VITALS: BP 128/73; PULSE 95; RESP 26; O2SAT 100
[2024-02-23 19:28] LABS: Anion Gap 6 (5-15); BUN 8 mg/dL (7-18); BUN/Creat Ratio 12.1 RATIO (10-20); Calcium,Total 9.4 mg/dL (8.5-10.1); Chloride 97 mmol/L (98-107); Creatinine, Serum 0.66 mg/dL (0.55-1.02); EST Glomerular Filtration Rate 94 mL/min (>60); Est Glom Filt Rate - Afr Amer 114 mL/min (>60); Estimated Creatinine Clearance 73.35 ml/min; Glucose 98 mg/dL (74-106); Magnesium 2.2 mg/dL (1.6-2.6); Potassium 3.7 mmol/L (3.5-5.1); Sodium Level 134 mmol/L (136-145); Troponin-I HS (w/2H Reflex) 22 pg/mL (3.0-54.0)
[2024-02-23 19:43] LABS: BNP,B-Type NATRIURETIC PEPTIDE 112.3 pg/mL (0-100)
[2024-02-23 20:52] LABS: Reflex Troponin-HS? (from REC) Y
[2024-02-23 21:00] VITALS: BP 134/79; PULSE 99; RESP 15; O2SAT 99
[2024-02-23 21:45] LABS: Troponin-I HS 22 pg/mL (3.0-54.0)
[2024-02-23 22:06] VITALS: O2SAT 92
--- NOTE | 2024-02-23 22:25 | CT_ITS ---
STUDY: CTA CHEST REASON FOR EXAM: Female, 68 years old. hypoxia, concern for PE CHF, 2L AT HOME, SOB WHILE SHOPPING TODAY, DRY COUGH, BREAST CA HX WITH CHEMO AND RAD YEARS AGO RADIATION DOSAGE (If Supplied By Facility): CTDIvol = ( 22.17 ) mGy, DLP = ( 473.26 ) mGycm TECHNIQUE: The examination was performed with the intravenous administration of IV 100mL Isovue-370. Post-processing of the angiographic images was performed, with multiplanar reformation and 3D reconstruction. The protocol utilizes one or more of the following dose reduction techniques: automated exposure control, adjustment of mA and/or kV according to patient size,and/or use of iterative reconstruction technique. COMPARISON: Prior study dated: 09/09/2022 FINDINGS: LUNGS: Extensive patchy groundglass opacities throughout the right lung increased compared to prior study. Bronchiectasis throughout the right lung also appears increased, with increased volume loss. Minimal scattered patchy groundglass opacities in the left lung. No consolidation. PLEURA: No pleural effusion. No pneumothorax. PULMONARY VESSELS: No pulmonary emboli identified. MEDIASTINUM: Enlarged mediastinal and hilar lymph nodes, not significantly increased compared to prior. HEART: Not enlarged. Dense perivalvular calcifications. AORTA/GREAT VESSELS: Thoracic aorta is normal caliber. No aneurysm or dissection. UPPER ABDOMEN: No acute findings. Moderate-sized hiatal hernia. Surgical clips at the region of the GE junction likely prior fundoplication overall configuration not significantly changed. BONES/SOFT TISSUES: No acute findings. OTHER: Right mastectomy. CT/CTA Chest W/WO Contrast IMPRESSION: 1. No evidence of pulmonary emboli. 2. Increased opacities throughout the right lung suggests inflammatory process possible viral pneumonitis superimposed on chronic changes and fibrosis which is likely progressed compared to prior. Mild increased volume loss. 3. Minimal opacities in the left lung likely inflammatory and/or mild edema. 4. Increased mediastinal and hilar adenopathy may be reactive.. Electronically Signed: Yasmeen Jara MD at 0:35 EST ,
--- NOTE | 2024-02-23 22:48 | EDS_ITS ---
HPI History of Present Illness Chief Complaint: Shortness of Breath Informant: patient Narrative Narrative: Patient is a 68-year-old female with history of sarcoidosis, chronic hypoxia (wears 2 L at baseline with 3 with exertion), chronic back pain, diastolic heart failure and HARRISON on CPAP presenting with worsening shortness of breath and near syncope. Patient states she became simply more short of breath today while she was running errands (went to the grocery store). She felt lightheaded and fell like she is going to pass out. She notes that she did have her oxygen on. She had to stop to keep catching her breath and rest. She states that she has been compliant with her Lasix. She denies any swelling of her legs. She has developed some right sided chest and back pain over the past few days. She has had a dry cough with no significant change. She has had associated headache. She states she did have some fluid few days ago with fever and diarrhea that has resolved. No other complaints or concerns reported at this time. Patient is not on any blood thinners. She does report a history of what sounds like a equivocal/possible PE. [facility] Medical History Osteoporosis Pulmonary embolism Congestive heart failure (CHF) Wears partial dentures Wears glasses Post-menopausal Cancer Alcohol use Glucose intolerance Thyroid disease Ambulates with cane Arthritis DVT (deep venous thrombosis) Easy bruising Excessive bleeding Migraine headache Injury of head and neck History of IBS Non-smoker CPAP (continuous positive airway pressure) dependence Sleep apnea Leg cramps History of pain when walking History of edema History of echocardiogram Cardiology follow-up encounter History of irregular heartbeat Mitral valve annular calcification Varicose veins of both lower extremities Obesity COVID-19 virus detected (12/02/22) Hiatal hernia Osteoarthritis Restless leg syndrome Chronic pain Sarcoidosis of lung Arthritis, rheumatoid HARRISON on CPAP Rheumatoid arthritis Anemia Hypothyroid Malignant neoplasm of breast Other and unspecified diseases of upper respiratory tract History of breast cancer Hemoptysis Home Medications ?Medication ?Instructions ?Recorded ?Last Taken ?Type hydroxychloroquine 200 mg tablet 200 mg PO DAILYCM 07/05/15 09/09/22 History cyclobenzaprine 10 mg tablet 10 mg PO TID PRN Pain 05/28/17 09/07/22 History ferrous sulfate 325 mg (65 mg 325 mg PO DAILY 05/28/17 Unknown History iron) tablet multivitamin (Multiple Vitamins 1 tab PO DAILY 05/28/17 09/09/22 History tablet) vitamin B complex (B 1 tab PO QDAY 05/28/17 09/09/22 History Complex-Vitamin B12 tablet) clobetasol 0.05 % topical ointment 1 applic topical DAILY PRN SKIN 05/17/20 Unknown History CONDITION levothyroxine 75 mcg tablet 75 mcg PO DAILY 05/17/20 09/09/22 History lorazepam 1 mg tablet 0.5 mg PO DAILY PRN Anxiety 05/17/20 09/06/22 History methotrexate sodium 2.5 mg tablet 15 mg PO SHARP 05/17/20 09/08/22 History nortriptyline 25 mg capsule 25 mg PO QHS 07/08/22 09/08/22 History ondansetron HCl 4 mg tablet 4 mg PO Q8H PRN nausea and vomiting 07/08/22 Unknown History [id number] 333 mg-133 4 tab PO DAILY SUPPLEMENT 09/09/22 09/08/22 History mg-5 mg tablet Nebulizer machine #1 ea 12/02/22 Unknown Rx duloxetine 30 mg capsule,delayed 30 mg PO DAILY 01/14/23 Unknown History release folic acid 1 mg tablet 1 mg PO DAILY 01/14/23 Unknown History hydrocodone-acetaminophen 5-325mg 1 tab PO BID PRN pain 01/14/23 Unknown History 5mg-325mg gabapentin 300 mg capsule 300 mg PO TIDCM 04/22/23 Unknown History metoprolol tartrate 25 mg tablet 25 mg PO BID #60 tabs 04/22/23 Unknown Rx furosemide 40 mg tablet 40 mg PO DAILY #90 tabs 11/19/23 Unknown Rx potassium chloride 20 mEq 20 meq PO DAILYCM PRN hypokalemia 02/23/24 Unknown History tablet,extended release(part/cryst) (Klor-Con M) Allergy/AdvReac Type Severity Reaction Status Date / Time doxycycline Allergy Mild Nausea Verified 02/23/24 17:30 enalaprilat (From Vasotec) Allergy Mild Other - Verified 02/23/24 17:30 lightheadedness codeine Allergy Unknown Verified 02/23/24 17:30 midazolam HCl (From Versed) Allergy Anaphylaxis Verified 02/23/24 17:30 morphine AdvReac Nausea/Vom/ Verified 02/23/24 17:30 Diarrhea NSAIDS (Non-Steroidal AdvReac Other Verified 02/23/24 17:30 Anti-Inflamma Family History Mother Diabetes Pancreatic cancer Brother Diabetes Hypertension Seasonal allergies Melanoma Brain cancer Tongue cancer Father Colon cancer Parkinson disease Sister Hypertension Seasonal allergies Uterine cancer Lung cancer Liver cancer Surgical History History of cholecystectomy Hx of cataract surgery History of carpal tunnel release of both wrists Hx of hand surgery History of foot operation Hx of mastectomy (2006) Port-a-cath in place H/O thumb surgery History of appendectomy History of carpal tunnel surgery Hx of cholecystectomy H/O ligation of vein History of modified radical mastectomy H/O vaginal hysterectomy H/O hernia repair History of gastric bypass Social History Smoking Status: Never smoker alcohol intake: current alcohol intake frequency: holidays/special occasions only substance use type: does not use caffeine: Yes Type: carbonated beverages Number of servings: 3 and coffee Number of servings: 2 ROS ROS ED Constitutional Constitutional ED: Reports fever(s); Denies chills ENT ENT ED: Denies rhinorrhea or sore throat Cardiovascular Cardiovascular: Reports chest pain; Denies palpitations Respiratory/Chest Respiratory/Chest: Reports cough, dyspnea and dyspnea on exertion Gastrointestinal Gastrointestinal: Reports diarrhea; Denies abdominal pain, nausea or vomiting Musculoskeletal Musculoskeletal: Reports back pain; Denies arthralgias Neurologic Neurologic: Reports headache(s) and weakness; Denies paresthesias Hematologic/Lymphatic Hematologic/Lymphatic: Denies easy bleeding or easy bruising EXAM Physical Exam Const Vital Signs: 02/23/24 17:27 02/23/24 17:49 02/23/24 18:38 Temperature 97.8 F Temperature Source Temporal Pulse Rate 121 H Respiratory Rate 24 H Respiratory Effort Normal Non-Labored Respiratory Depth Normal Respiratory Pattern Normal Blood Pressure 123/97 H Blood Pressure Mean 105 Pulse Ox 100 Oxygen Delivery Method Nasal Cannula Nasal Cannula Nasal Cannula Oxygen Flow Rate (L/min) 3 Fraction of Inspired Oxygen (FIO2) 2 02/23/24 19:19 02/23/24 21:00 02/23/24 23:00 Temperature Temperature Source Pulse Rate 95 99 99 Respiratory Rate 26 H 15 28 H Respiratory Effort Respiratory Depth Respiratory Pattern Blood Pressure 128/73 H 134/79 H 142/70 H Blood Pressure Mean 91 97 94 Pulse Ox 100 99 100 Oxygen Delivery Method Nasal Cannula Nasal Cannula Nasal Cannula Oxygen Flow Rate (L/min) 2 2 Fraction of Inspired Oxygen (FIO2) 02/24/24 00:44 Temperature 98.8 F Temperature Source Pulse Rate 105 H Respiratory Rate 25 H Respiratory Effort Respiratory Depth Respiratory Pattern Blood Pressure 124/70 H Blood Pressure Mean 88 Pulse Ox 98 Oxygen Delivery Method Oxygen Flow Rate (L/min) Fraction of Inspired Oxygen (FIO2) Positive well nourished and well developed General Appearance ED: well developed and NAD HEENT Reports moist mucous membranes Eyes PERRL Neck supple and no JVD Resp normal respiratory effort Resp Narrative: Diminished breath sounds at the bases, crackles present diffusely on the right and also at the left base. No tachypnea. Cardio regular rate and regular rhythm GI non-tender and non-distended Extremity normal to inspection General Extremety ED: Negative for edema or tenderness General Extremity: Negative for edema Neuro oriented x3 Neuro Narrative: No focal deficits appreciated Sensorium / Orientation: alert Motor Exam: general weakness Psych mental status grossly normal Skin no wounds MDM MDM MDM Narrative Medical decision making narrative: Patient is evaluated for near syncope and increased shortness of breath on exertion. Upon arrival to the ER patient was tachycardic and hypoxic however she was not wearing oxygen when she got here. She did improved and placed on her baseline oxygen. She reports feeling near syncopal. Differential includes ACS, fluid overload/diastolic heart failure exacerbation, pneumonia, viral syndrome as well as pulmonary emboli. Patient is workup is largely negative or at her baseline. Chest x-rays not show any acute process position a lot of chronic changes. Vital signs normalized in the ER. She is resting comfortably. She is ambulated and becomes symptomatic again Dropping down to 85% from 92%. I feel that patient and will need to be admitted. Will add on CTA to rule out pulmonary emboli as the cause of her symptoms and to better evaluate the lung parenchyma in case she does have a subtle pneumonia. CTA of the chest shows no PE but increased opacities to the right lung suggestive inflammatory process such as a viral pneumonitis superimposed on chronic changes and fibrosis which likely is progressed. Patient was given Solu-Medrol and will be covered with azithromycin. Case discussed with hospitalist will be admitted given how symptomatic she is in hypoxia with ambulation. Lab Data Attestation: I reviewed the patient's lab results. Labs: Laboratory Results - last 24 hr 02/23/24 02/23/24 18:35 21:06 WBC 7.3 RBC 3.78 L Hgb 11.9 L Hct 38.5 MCV 101.9 H MCH 31.5 MCHC 30.9 L RDW Std Deviation 49.0 H RDW Coeff of Edilma 13.2 Plt Count 291 MPV 9.1 Immature Gran % (Auto) 0.400 Neut % (Auto) 70.5 H Lymph % (Auto) 16.0 L [place] % (Auto) 8.7 Eos % (Auto) 3.4 Baso % (Auto) 1.0 Absolute Neuts (auto) 5.1 Absolute Lymphs (auto) 1.16 Nucleated RBC % 0 Sodium 134 L Potassium 3.7 Chloride 97 L Carbon Dioxide 31.0 Anion Gap 6 BUN 8 Creatinine 0.66 Estim Creat Clear Calc 73.35 Est GFR (MDRD) Af Amer 114 Est GFR (MDRD) Non-Af 94 BUN/Creatinine Ratio 12.1 Glucose 98 Calcium 9.4 Magnesium 2.2 Troponin I High Sens 22 22 B-Natriuretic Peptide 112.3 H Radiography Chest X-Ray - ED: 2 View, No Acute Disease (Read by radiologist) and - (Asymmetric changes on the right compared to the left on my interpretation) Diagnostic Testing: Clinical Impression(s) from Imaging Studies Chest X-Ray 02/23/24 18:50 IMPRESSION: Right lung fibrosis and infiltrates or edema. Electronically Signed: Jorge Magaña MD at 20:50 EST , Chest CTA 02/23/24 22:25 IMPRESSION: 1. No evidence of pulmonary emboli. 2. Increased opacities throughout the right lung suggests inflammatory process possible viral pneumonitis superimposed on chronic changes and fibrosis which is likely progressed compared to prior. Mild increased volume loss. 3. Minimal opacities in the left lung likely inflammatory and/or mild edema. 4. Increased mediastinal and hilar adenopathy may be reactive.. Electronically Signed: Yasmeen Jara MD at 0:35 EST , Rhythm Strip Rhythm Strip: Sinus Tach Rate: 111 Ectopy: PAC(s) EKG Initial EKG: Attestation: I personally reviewed and interpreted this EKG as follows: Interpretation: Sinus Tachycardia Comments: Sinus tachycardia at a rate of 111 bpm with PACs Left axis deviation Incomplete right bundle branch block left anterior fascicular block Normal ST segments Prior EKG tracings: available for review Prior: Changed (PACs now present) Management Discussion w/another healthcare provider: Hospitalist Discharge Plan Triage Chief Complaint: Shortness of Breath ED Provider: Gisell Goode Dx/Rx/DC Orders Clinical Impression: SOBOE (shortness of breath on exertion), Sarcoidosis of lung, Near syncope, Acute and chronic respiratory failure with hypoxia Prescriptions: No Action vitamin B complex [B Complex-Vitamin B12] tablet 1 tab PO QDAY multivitamin [Multiple Vitamins] tablet 1 tab PO DAILY ferrous sulfate 325 mg (65 mg iron) tablet 325 mg PO DAILY cyclobenzaprine 10 mg tablet 10 mg PO TID PRN (Reason: Pain) lorazepam 1 mg tablet 0.5 mg PO DAILY PRN (Reason: Anxiety) clobetasol 0.05 % ointment 1 applic TOPICAL DAILY PRN (Reason: SKIN CONDITION) levothyroxine 75 mcg tablet 75 mcg PO DAILY methotrexate sodium 2.5 mg tablet 15 mg PO SHARP ondansetron HCl 4 mg tablet 4 mg PO Q8H PRN (Reason: nausea and vomiting) nortriptyline 25 mg capsule 25 mg PO QHS hydrocodone-acetaminophen 5-325 mg tablet 1 tab PO BID PRN (Reason: pain) duloxetine 30 mg capsule,delayed release(DR/EC) 30 mg PO DAILY folic acid 1 mg tablet 1 mg PO DAILY metoprolol tartrate 25 mg tablet 25 mg PO BID Qty: 60 12RF gabapentin 300 mg capsule 300 mg PO TIDCM Patient Comments: Taking 2 at [id number] hydroxychloroquine 200 MG tablet 200 mg PO DAILYCM [id number]-[id number]-nohu 333-133-5 mg tablet 4 tab PO DAILY potassium chloride [Klor-Con M20] 20 mEq Tablet,Er Particles/Crystals 20 meq PO DAILYCM PRN (Reason: hypokalemia) (DME) Nebulizer machine See Rx Instructions .ROUTE .MEDSUPPLY Qty: 1 0RF Rx Instructions: As directed furosemide 40 mg tablet 40 mg PO DAILY Qty: 90 3RF Primary Care Provider: Elisa Baxter Referrals: Elisa Baxter MD [Primary Care Provider] - Print Language: Kosovan Disposition Disposition: Acute Care Hospital [facility]
[2024-02-23 23:00] VITALS: BP 142/70; PULSE 99; RESP 28; O2SAT 100
[2024-02-24] VITALS (11 sets, daily range): BP systolic 100–149; BP diastolic 66–114; PULSE 89–105; RESP 18–25; TEMP 36.3–37.1; O2SAT 93–99; BMI 41.3
[2024-02-24] MEDS: HYDROcodone Bitartrate/Apap 5/325 Tablet PO ×4 (00:12→21:42)
--- NOTE | 2024-02-24 01:05 | PCM.HP.STD ---
[facility] - General General Date of Admission: 02/24/24 Date of Service: 02/24/24 Chief Complaint: SOB and Near Syncope. [facility] Narrative ENHAL CARPENTER, is a 68 F with a past medical history of essential hypertension; on metoprolol and furosemide, hypothyroidism; on levothyroxine, morbid obesity; with BMI of 42 this admission in spite of previous gastric bypass, HARRISON; on CPAP, history of RA; on MTX, history of sarcoidosis of lung; on hydroxychloroquine, history of DVT/PE; not currently on anticoagulation, chronic hypoxic respiratory failure; on 2-3L NC, history of diastolic CHF; with preserved LVEF, history of mitral valve annular calcification, history of irregular heart beat, history of breast cancer; s/p chemotherapy and modified radical mastectomy (2006), ECTOR, history of neuropathy; on gabapentin, IBS, history of hiatal hernia, RLS; with history of leg cramps, history of migraine headaches, history of depression; on nortriptyline and duloxetine, history of varicose veins of lower extremities; s/p ligation (2000), history of COVID-19 (2022), history of cholecystectomy (1992), history of appendectomy, history of vaginal hysterectomy (2003), history of hernia; s/p repair, history of cataract surgery, history of bilateral CTS; s/p release (1987) & (1989), listed allergy to doxycycline (nausea), listed allergy to enalapril (lightheadedness), listed allergy to midazolam (anaphylaxis), listed allergy to morphine (nausea, vomiting and diarrhea), osteoporosis and OA; with lumbar stenosis and spondylolisthesis at L4-L5 with chronic back pain on prn oxycodone BID who presents to [facility] ER complaining of SOB and near syncope. Ms. Carpenter reports her symptoms began approximately one day prior to admission with the patient noticing increasing GIRON in spite of wearing her supplemental oxygen while running errands on February 23, 2024 that caused her to have to stop frequently to rest and catch her breath. She then began to fell lightheaded like she was going to pass out - but she denies LOC. She also admits to Right-sided chest pain along with worsening back pain over the past few days along with a mild headache and chronic dry cough with sputum that recently changes from grayish-white to green. She added that she had diarrhea and fever a few days ago that have since resolved. She states she has been taking her furosemide as prescribed and she denies increased LE edema. She admits to subjective fever, cough and Right-sided pleuritic chest pain with GIRON that progressed to SOB at rest and worsening back pain but she denies chills, runny nose, sore throat, abdominal pain, paresthesias or arthralgias. In the ER she was noted to have CT evidence of increased opacities throughout the Right lung suggesting an inflammatory process with possible viral pneumonitis superimposed on chronic changes and fibrosis which has progressed compared to prior exam with mild increase in volume loss with minimal opacities in the Left lung that are likely inflammatory and/or mild edema with increased mediastinal and hilar adenopathy that may be reactive consistent with suspected Pneumonia complicated by Acute Flare of Sarcoid Lung Disease with associated clinical evidence of [id number] Respiratory Insufficiency compounded by Near Syncope and she was then admitted to the general medical floor with telemetric monitoring for ongoing care for a stay that is expected to extend beyond 2 midnights. FORMERLY [facility], [facility]–1983 Medical History (Updated 02/24/24 @ 04:[address] David Granda, ) Osteoporosis Pulmonary embolism Congestive heart failure (CHF) Wears partial dentures Wears glasses Post-menopausal Cancer Alcohol use Glucose intolerance Thyroid disease Ambulates with cane Arthritis DVT (deep venous thrombosis) Easy bruising Excessive bleeding Migraine headache Injury of head and neck History of IBS Non-smoker CPAP (continuous positive airway pressure) dependence Sleep apnea Leg cramps History of pain when walking History of edema History of echocardiogram Cardiology follow-up encounter History of irregular heartbeat Mitral valve annular calcification Varicose veins of both lower extremities Obesity COVID-19 virus detected (12/02/22) Hiatal hernia Osteoarthritis Restless leg syndrome Chronic pain Sarcoidosis of lung Arthritis, rheumatoid HARRISON on CPAP Rheumatoid arthritis Anemia Hypothyroid Malignant neoplasm of breast Other and unspecified diseases of upper respiratory tract History of breast cancer Hemoptysis Home Medications ?Medication ?Instructions ?Recorded ?Last Taken ?Type hydroxychloroquine 200 mg tablet 200 mg PO DAILYCM immunosuppresent 07/05/15 02/23/24 09:47 History ferrous sulfate 325 mg (65 mg 325 mg PO DAILY 05/28/17 Unknown History iron) tablet multivitamin (Multiple Vitamins 1 tab PO DAILY dietary 05/28/17 02/23/24 09:48 History tablet) vitamin B complex (B 1 tab PO QDAY dietary supplement 05/28/17 02/23/24 09:50 History Complex-Vitamin B12 tablet) clobetasol 0.05 % topical ointment 1 applic topical DAILY PRN SKIN 05/17/20 Unknown History CONDITION levothyroxine 75 mcg tablet 75 mcg PO DAILY thyroid 05/17/20 02/23/24 09:47 History lorazepam 1 mg tablet 0.5 mg PO DAILY PRN Anxiety 05/17/20 02/22/24 07:48 History methotrexate sodium 2.5 mg tablet 15 mg PO SHARP immunosuppresent 05/17/20 02/23/24 09:48 History nortriptyline 25 mg capsule 25 mg PO QHS nerve pain 07/08/22 02/21/24 22:49 History ondansetron HCl 4 mg tablet 4 mg PO Q8H PRN nausea and vomiting 07/08/22 Unknown History hjktpzl-nkhvdqath-tbni 333 mg-133 4 tab PO DAILY SUPPLEMENT 09/09/22 02/23/24 09:44 History mg-5 mg tablet Nebulizer machine #1 ea 12/02/22 Unknown Rx duloxetine 30 mg capsule,delayed 30 mg PO DAILY depression 01/14/23 02/23/24 09:45 History release folic acid 1 mg tablet 1 mg PO DAILY dietary supplement 01/14/23 Unknown History hydrocodone-acetaminophen 5-325mg 1 tab PO TID PRN pain 01/14/23 Unknown History 5mg-325mg gabapentin 300 mg capsule 300 mg PO TIDCM pain 04/22/23 02/23/24 09:46 History metoprolol tartrate 25 mg tablet 25 mg PO BID #60 tabs 04/22/23 02/23/24 09:48 Rx furosemide 40 mg tablet 40 mg PO DAILY #90 tabs 11/19/23 02/23/24 09:46 Rx potassium chloride 20 mEq 20 meq PO DAILYCM PRN hypokalemia 02/23/24 Unknown History tablet,extended release(part/cryst) (Klor-Con M) Allergy/AdvReac Type Severity Reaction Status Date / Time doxycycline Allergy Mild Nausea Verified 02/23/24 17:30 enalaprilat (From Vasotec) Allergy Mild Other - Verified 02/23/24 17:30 lightheadedness codeine Allergy Unknown Verified 02/23/24 17:30 midazolam HCl (From Versed) Allergy Anaphylaxis Verified 02/23/24 17:30 morphine AdvReac Nausea/Vom/ Verified 02/23/24 17:30 Diarrhea NSAIDS (Non-Steroidal AdvReac Other Verified 02/23/24 17:30 Anti-Inflamma Family History Mother Diabetes Pancreatic cancer Brother Diabetes Hypertension Seasonal allergies Melanoma Brain cancer Tongue cancer Father Colon cancer Parkinson disease Sister Hypertension Seasonal allergies Uterine cancer Lung cancer Liver cancer Surgical History History of cholecystectomy Hx of cataract surgery History of carpal tunnel release of both wrists Hx of hand surgery History of foot operation Hx of mastectomy (2006) Port-a-cath in place H/O thumb surgery History of appendectomy History of carpal tunnel surgery Hx of cholecystectomy H/O ligation of vein History of modified radical mastectomy H/O vaginal hysterectomy H/O hernia repair History of gastric bypass Social History Smoking Status: Never smoker alcohol intake: current alcohol intake frequency: holidays/special occasions only substance use type: does not use caffeine: Yes Type: carbonated beverages Number of servings: 3 and coffee Number of servings: 2 ROS ROS Narrative Review of Systems: Constitutional: Patient admits to subjective fever but she denies chills. Eyes: Patient denies changes in vision or discharge from eyes. ENT: Patient denies runny nose, sore throat or ear pain. Resp: Patient admits to SOB and cough productive of greenish sputum. CV: Patient admits to pleuritic chest pain but she denies palpitations or heart racing. GI: Patient admits to nonbloody diarrhea but she denies abdominal pain, nausea or vomiting. : Patient denies dysuria or hematuria. MSK: Patient admits to worsening back pain but she denies arthralgias or myalgias. Skin: Patient denies rash, abscess or jaundice. Psych: Patient denies symptoms of uncontrolled depression or anxiety. Neuro: Patient admits to transient, mild headache but she denies paresthesias or focal neurologic deficits. Allergy: Patient denies lip swelling, tongue swelling or urticaria. Hematology: Patient denies easy bleeding or easy bruisability. Endocrinology: Patient denies polyuria, polydipsia or polyphagia. 14 point ROS otherwise negative except for positives noted above in HPI. Vital Signs Vital Signs Vital Signs: 02/23/24 17:27 02/23/24 17:49 02/23/24 18:38 Temperature 97.8 F Temperature Source Temporal Pulse Rate 121 H Respiratory Rate 24 H Respiratory Effort Normal Non-Labored Respiratory Depth Normal Respiratory Pattern Normal Blood Pressure 123/97 H Blood Pressure Mean 105 Pulse Ox 100 Oxygen Delivery Method Nasal Cannula Nasal Cannula Nasal Cannula Oxygen Flow Rate (L/min) 3 Fraction of Inspired Oxygen (FIO2) 2 02/23/24 19:19 02/23/24 21:00 02/23/24 23:00 Temperature Temperature Source Pulse Rate 95 99 99 Respiratory Rate 26 H 15 28 H Respiratory Effort Respiratory Depth Respiratory Pattern Blood Pressure 128/73 H 134/79 H 142/70 H Blood Pressure Mean 91 97 94 Pulse Ox 100 99 100 Oxygen Delivery Method Nasal Cannula Nasal Cannula Nasal Cannula Oxygen Flow Rate (L/min) 2 2 Fraction of Inspired Oxygen (FIO2) 02/24/24 00:44 Temperature 98.8 F Temperature Source Pulse Rate 105 H Respiratory Rate 25 H Respiratory Effort Respiratory Depth Respiratory Pattern Blood Pressure 124/70 H Blood Pressure Mean 88 Pulse Ox 98 Oxygen Delivery Method Oxygen Flow Rate (L/min) Fraction of Inspired Oxygen (FIO2) Weight Weight: 222 lb 6.4 oz Body Mass Index (BMI) 42.0 Results Medical Records Data Attestation: I reviewed the patient's medical records Lab / Micro Data Attestation: I reviewed the patient's lab results. 02/23/24 18:35 02/23/24 18:35 Labs: Laboratory Results - last 24 hr 02/23/24 18:35: WBC 7.3, RBC 3.78 L, Hgb 11.9 L, Hct 38.5, MCV 101.9 H, MCH 31.5, MCHC 30.9 L, RDW Std Deviation 49.0 H, RDW Coeff of Edilma 13.2, Plt Count 291, MPV 9.1, Immature Gran % (Auto) 0.400, Neut % (Auto) 70.5 H, Lymph % (Auto) 16.0 L, Brewster % (Auto) 8.7, Eos % (Auto) 3.4, Baso % (Auto) 1.0, Absolute Neuts (auto) 5.1, Absolute Lymphs (auto) 1.16, Nucleated RBC % 0, Sodium 134 L, Potassium 3.7, Chloride 97 L, Carbon Dioxide 31.0, Anion Gap 6, BUN 8, Creatinine 0.66, Estim Creat Clear Calc 73.35, Est GFR (MDRD) Af Amer 114, Est GFR (MDRD) Non-Af 94, BUN/Creatinine Ratio 12.1, Glucose 98, Calcium 9.4, Magnesium 2.2, Troponin I High Sens 22, B-Natriuretic Peptide 112.3 H 02/23/24 21:06: Troponin I High Sens 22 Micro: Microbiology 02/23/24 18:35 Mucosa - Nose SARS-CoV-2, Influenza & RSV (PCR) - Final Rhythm Strip Rhythm Strip: Sinus Tach Rate: 111 Ectopy: PAC(s) Imaging Radiology Impression Chest X-Ray 02/23/24 18:50 IMPRESSION: Right lung fibrosis and infiltrates or edema. Electronically Signed: Jorge Magaña MD at 20:50 EST , Chest CTA 02/23/24 22:25 IMPRESSION: 1. No evidence of pulmonary emboli. 2. Increased opacities throughout the right lung suggests inflammatory process possible viral pneumonitis superimposed on chronic changes and fibrosis which is likely progressed compared to prior. Mild increased volume loss. 3. Minimal opacities in the left lung likely inflammatory and/or mild edema. 4. Increased mediastinal and hilar adenopathy may be reactive.. Electronically Signed: Yasmeen Jara MD at 0:35 EST , Assessment & Plan Assessment/Plan (1) Pneumonia: QUALIFIERS: Pneumonia type: due to unspecified organism Laterality: bilateral Lung location: unspecified part of lung Qualified Code(s): J18.9 - Pneumonia, unspecified organism (2) Sarcoidosis of lung: (3) Respiratory insufficiency: (4) Near syncope: (5) Morbid obesity with BMI of 40.0-44.9, adult: (6) HARRISON on CPAP: (7) Osteoarthritis: QUALIFIERS: Osteoarthritis location: spine Spinal region: lumbosacral Spinal osteoarthritis complication: without myelopathy or radiculopathy Qualified Code(s): M47.817 - Spondylosis without myelopathy or radiculopathy, lumbosacral region (8) Low back pain: QUALIFIERS: Chronicity: chronic Back pain laterality: bilateral Sciatica presence: without sciatica Qualified Code(s): M54.50 - Low back pain, unspecified; G89.29 - Other chronic pain (9) Lumbar stenosis: QUALIFIERS: Neurogenic claudication status: with neurogenic claudication Qualified Code(s): M48.062 - Spinal stenosis, lumbar region with neurogenic claudication PLAN: Plan 1. Pneumonia - Admit to PCU. Continue IV Rocephin and IV Azithromycin begun in the ER and await culture and sensitivity data. Check urinary antigens for Streptococcus pneumonia and Legionella. Give Mucinex 1,200 mg po BID. Give vitamin d3, vitamin C and zinc to help boost immunity and speed recovery. Give Tylenol prn for nafm-oa-vecjgyix (level 1-5/10) pain or fever. Continue oxycodone prn for severe (level 6-10/10) pain. 2. Acute Flare of Sarcoid Lung Disease complicating #1 - Continue IV Solumedrol begun in the ER along with prn nebulizers. Resume hydroxychloroquine as previous. Start Protonix for GI prophylaxis while patient is on steroids. 3. Pawij-kz-rkaipfw Respiratory Insufficiency arising from #1 & #2 - Wean additional supplemental oxygen as tolerated. 4. Near Syncopal event attributable to #1 - #3 - Check echocardiogram to evaluate LVEF. Otherwise, resume supportive care as outlined above and monitor for improvement. 5. Morbid obesity; with BMI of 42 this admission in spite of previous gastric bypass with HARRISON; on CPAP adding to the medical complexity of #1 - #4 - Weight loss will be recommended. Check TSH. Continue nocturnal CPAP as previous. Check B12 and Folate levels with macrocytosis of 101.9 fL present on admission with possible deficiency due to malabsorption due to previous gastric bypass. 6. OA; with lumbar stenosis and spondylolisthesis at L4-L5 with chronic back pain on prn oxycodone BID made worse by #1 - #5 - Stable. PT/OT and Case Management to consult and treat on-rounds in AM with help appreciated in advance. 7. Essential hypertension; on metoprolol and furosemide - Maintain home regimen and give prn IV Hydralazine for systolic blood pressure > 160 mmHg. 8. Hypothyroidism; on levothyroxine - Continue levothyroxine and check TSH. 9. History of RA; on MTX - Resume methotrexate as previous. 10. History of DVT/PE; not currently on anticoagulation - Noted with CTA this admission negative for PE. 11. History of diastolic CHF; with preserved LVEF - Noted with mildly elevated BNP of 112.3 pg/mL present on admission andno signs of volume overload arguing against significant AE CHF. 12. History of mitral valve annular calcification - Noted with echocardiogram pending for #4. 13. History of irregular heart beat - Noted with patient currently in NSR. 14. History of breast cancer; s/p chemotherapy and modified radical mastectomy (2006) - Noted with no signs of recurrence. 15. ECTOR - Stable with hemoglobin of 11.9 g/dL present on admission. 16. History of neuropathy; on gabapentin - Resume gabapentin as previous. 17. IBS - Stable. 18. History of hiatal hernia - Noted. 19. RLS; with history of leg cramps - Stable. 20. History of migraine headaches - Stable. 21. History of depression; on nortriptyline and duloxetine - Maintain current regimen. 22. History of varicose veins of lower extremities; s/p ligation (2000) - Noted. 23. History of COVID-19 (2022) - Noted. 24. History of cholecystectomy (1992) - Noted. 25. History of appendectomy - Noted. 26. History of vaginal hysterectomy (2003) - Noted. 27. History of hernia; s/p repair - Noted. 28. History of cataract surgery - Noted. 29. History of bilateral CTS; s/p release (1987) & (1989) - Noted. 30. Listed allergy to doxycycline (nausea) - Noted. 31. Listed allergy to enalapril (lightheadedness) - Noted. 32. Listed allergy to midazolam (anaphylaxis) - Noted. 33. Listed allergy to morphine (nausea, vomiting and diarrhea) - Noted with patient on chronic prn oxycodone. 34. Osteoporosis - Stable. 35. DVT prophylaxis - Lovenox 40 mg sq daily plus SCD's. Total time: Approximately 75 minutes. Charges/Coding Visit Charges Inpatient E&M: 87014 Init Hosp L3
[2024-02-24] MEDS: MethylPREDNISolone 125 MG/2 ML Vial IV (01:07)
[2024-02-24] MEDS: Azithromycin 500 MG in 0.9% Normal Saline (250mL Bag) 250 ML 250 MG IV (01:07)
[2024-02-24] MEDS: 0.9% Normal Saline (1000mL) 1,000 ML 30 ML IV (04:05)
--- NOTE | 2024-02-24 04:20 | ECHOCS_ITS ---
Reason For Study: Syncope/Near Syncope Procedure This was a 2D Doppler, Color Flow transthoracic echocardiogram. Contrast injection was performed. Exam performed portable in patient room. Left Ventricle Normal LV size. Left ventricular systolic function is normal. The left ventricular ejection fraction is 60 %. No regional wall motion abnormalities noted. Right Ventricle Normal RV size. Normal systolic function. Atria Normal left atrium. Normal right atrium. Mitral Valve There is mild to moderate mitral annular calcification. Mild (1+) eccentric mitral valve insufficiency. Tricuspid Valve Normal tricuspid valve. Aortic Valve Trisinus/trileaflet aortic valve. Mild focal aortic valve calcification. Pulmonic Valve Normal pulmonic valve. Great Vessels Normal aortic root. The pulmonary artery is normal size. Inferior vena cava collapse with respiration. Pericardium/Pleural No pericardial effusion. Medication Diluted definity 3ml given slow IV push to enhance endocardial definition. MMode/2D Measurements & Calculations LVIDd: 4.5 cm IVSd: 0.82 cm asc Aorta Diam: 3.6 cm LVIDs: 2.7 cm LVPWd: 0.82 cm RVDd: 4.3 cm FS: 39.1 % LAV(MOD-bp): 74.4 ml LVAd ap4: 23.1 cm2 SV(MOD-sp4): 40.7 ml LAV(MOD-bp) Indexed: 38.0 ml/m2 LVLd ap4: 7.3 cm SI(MOD-sp4): 20.8 ml/m2 LAV(MOD-sp2): 66.0 ml EDV(MOD-sp4): 59.3 ml LAV(MOD-sp4): 79.1 ml EDV(sp4-el): 62.1 ml LVAs ap4: 11.6 cm2 LVLs ap4: 6.0 cm ESV(MOD-sp4): 18.7 ml ESV(sp4-el): 19.1 ml EF(MOD-sp4): 68.5 % EF(sp4-el): 69.2 % SV(sp4-el): 43.0 ml LA A4 area: 26.7 cm2 LA dimension(2D): 4.3 cm RA A4 area: 11.7 cm2 TAPSE: 2.1 cm Doppler Measurements & Calculations MV E max edil: 147.1 cm/sec Lat Peak E' Edil: 7.6 cm/sec Med Peak E' Edil: 9.9 cm/sec MV A max edil: 177.0 cm/sec E/E' lat: 19.3 E/E' med: 14.8 MV E/A: 0.83 MV V2 max: 202.6 cm/sec Ao V2 max: 168.7 cm/sec LV V1 max: 121.4 cm/sec MV max P.4 mmHg Ao max P.4 mmHg LV V1 max P.9 mmHg MV V2 mean: 136.9 cm/sec Ao V2 mean: 122.5 cm/sec MV mean P.3 mmHg Ao mean P.6 mmHg MV V2 VTI: 39.7 cm Ao V2 VTI: 30.8 cm PA V2 max: 99.7 cm/sec TR max edil: 280.1 cm/sec TR max P.4 mmHg ECHO/Echo Complete W/ Contrast Interpretation Summary Normal LV size. Left ventricular systolic function is normal. The left ventricular ejection fraction is 60 %. There is mild to moderate mitral annular calcification. Hiatal hernia noted Ordering Physician: Dvaid Granda Referring Physician: Elisa Baxter Performed By: Corinna Ac RDCS, RVT
[2024-02-24] MEDS: Levothyroxine 75 MCG Tablet PO (05:39)
[2024-02-24 06:15] LABS: Absolute Lymphocyte Count 0.41 X10^3/uL (0.83-4.51); Absolute Neutrophil Count 3.5 X10^3/uL (2.0-7.7); Basophil# 0.02 X10^3/uL; Basophil% 0.5 % (0-1); Eosinophil# 0.01 X10^3/uL; Eosinophils% 0.3 % (0-5); Hematocrit 34.6 % (37-47); Hemoglobin 10.8 g/dL (12.0-15.0); Lymphocyte # 0.41 X10^3/ul (0.83-4.51); Lymphocyte % 10.3 % (19-41); Mean Corp Hgb Conc 31.2 g/dL (32-36); Mean Corpuscular Hgb 31.3 pg (27.0-32.0); Mean Corpuscular Volume 100.3 fL (81-99); Mean Platelet Vol. 9.3 fl (6.2-12.0); Monocyte# 0.03 X10^3/uL; Monocyte% 0.8 % (0-10); NRBC Flagged by Analyzer 0 % (0-5); Neutrophil # 3.51 X10^3/uL (2.7-7.7); Neutrophil % 87.8 % (47-70); POSITIVE DIFFERENTIAL YES; Platelet Count 245 K/mm3 (150-450); RBC Distribution Width CV 13.2 % (11.6-14.6); RBC Distribution Width SD 48.4 fl (35.1-43.9); Red Blood Count 3.45 M/mm3 (4.2-5.4)
[2024-02-24 06:40] LABS: ALB/GLOB Ratio 0.6 RATIO (0.9-2.4); AST(SGOT) 26 U/L (15-37); Alanine Aminotransfer ALT/SGPT 14 U/L (13-56); Albumin, Serum 2.7 g/dL (3.2-5.0); Alkaline Phosphatase 101 U/L (45-117); Anion Gap 6 (5-15); BUN 7 mg/dL (7-18); Chloride 98 mmol/L (98-107); Creatinine, Serum 0.63 mg/dL (0.55-1.02); EST Glomerular Filtration Rate 99 mL/min (>60); Est Glom Filt Rate - Afr Amer 120 mL/min (>60); Estimated Creatinine Clearance 72.68 ml/min; Globulin 4.6 g/dL (2.2-4.2); Glucose 184 mg/dL (74-106); Phosphorus 2.7 mg/dL (2.5-4.9); Potassium 3.6 mmol/L (3.5-5.1); Protein, Total 7.3 g/dL (6.4-8.2); Sodium Level 136 mmol/L (136-145)
[2024-02-24 09:01] LABS: Vitamin B12 672 pg/mL (211-911)
[2024-02-24] MEDS: guaiFENesin 1,200 MG Tablet 1200 MG PO ×2 (10:36→21:42)
[2024-02-24] MEDS: 0.9% Saline Lock 10 ML Syringe IV ×2 (10:36→21:43)
[2024-02-24] MEDS: Ascorbic Acid 500 MG Tablet 1000 MG PO ×2 (10:37→16:42)
[2024-02-24] MEDS: Pantoprazole Sodium 40 MG Tablet PO (10:37)
[2024-02-24] MEDS: Gabapentin 300 MG Capsule PO ×3 (10:37→16:42)
[2024-02-24] MEDS: Hydroxychloroquine 200 MG Tablet PO (10:37)
[2024-02-24] MEDS: Folic Acid 1 MG Tablet PO (10:37)
[2024-02-24] MEDS: Cholecalciferol (Vit D3) 125 MCG CAPSULE (5,000 UNITS) PO (10:37)
[2024-02-24] MEDS: Vitamin B Comp W-C Capsule 1 CAP PO (10:37)
[2024-02-24] MEDS: Multivitamins,Therapeutic Tablet 1 TABLET PO (10:37)
[2024-02-24] MEDS: Lactobacillis Acidophilus 1 CAP PO ×4 (10:37→21:42)
[2024-02-24] MEDS: Furosemide 40 MG Tablet PO (10:38)
[2024-02-24] MEDS: DULoxetine Hcl 30 MG Capsule PO (10:38)
[2024-02-24] MEDS: Metoprolol Tartrate 25 MG Tablet PO ×2 (10:38→21:42)
[2024-02-24] MEDS: Ferrous Sulfate 325 MG Tablet PO (10:38)
[2024-02-24] MEDS: Enoxaparin 40 MG/0.4 ML Syringe SC (10:39)
[2024-02-24] MEDS: MethylPREDNISolone 125 MG/2 ML Vial 60 MG IV ×2 (10:39→21:43)
--- NOTE | 2024-02-24 10:43 | PN.HOSP_ITS ---
Hospitalist Note Patient was admitted with shortness of breath with history of chronic hypoxic respiratory failure, on 2 L of oxygen at baseline with 3 L on exertion and wears CPAP intermittently. She was admitted with shortness of breath while doing grocery mild lightheaded and near syncope symptoms but did not pass out. Gets easily dyspnea on exertion and sometimes even at rest. Denies any swelling in the legs. Mild chest tightness/pain on the right side and back pain for past few days. She also had pulmonary congestion few days ago and was diuresed. She has history of sarcoidosis and used to follow Dr. Valdivia who left [place] in May 2023. She increasingly get more sinus drainage and postnasal discharge on CPAP Physical exam General: Alert, Oriented x3, Cooperative HEENT: Atraumatic, PERRLA, EOMI, Normocephalic Oral: No Gingival or Mucosal Lesions/ Ulcerations Neck: Supple, No JVD, Negative Carotid Bruits Chest wall/Lungs: Air entry diminished in bilateral lung bases. No crepitation/rhonchi Cardiovascular: Regular rate, Regular Rhythm, Normal S1, Normal S2, No M/G/R Abdomen: Bowel Sounds Present, Soft, Non Tender, Non-Distended : No dysuria. No renal angle tenderness. No suprapubic tenderness. Extremities: No edema, Capillary Refill Less than 3 Seconds Skin: No rashes, No breakdown Musculoskeletal: No Tenderness to Palpation of Joints or Extremities Neurological: Cranial nerves II-XII grossly intact, DTR 2+/4. No acute focal neurological deficit. Psych/Mental Status: Normal Affect, Appropriate. Chest CTA was done which shows no evidence of pulmonary emboli but increased opacities throughout right lung suggesting inflammatory or viral pneumonitis for possible chronic changes of fibrosis and scarring. Mild increased volume loss. Minimal opacities in left lung likely inflammatory. Increased mediastinal and hilar adenopathy may be reactive. Urinary antigens, respiratory panel are negative. Triple PCR for SARS-CoV-2, flu and RSV are negative. Empirically on IV ceftriaxone and azithromycin.
[2024-02-24] MEDS: FLU VACCINE **HIGH DOSE** TV 24-25 180 MCG/0.5 ML SYRINGE IM (12:25)
--- NOTE | 2024-02-24 12:41 | CHAPLAIN ---
Type of Pastoral Visit _x__ Initial Visit ___ Follow-up Visit ___ On-call Visit ___ General Patient Visit ___ Spiritual Assessment ___ Family Conference ___ Bereavement ___ Rapid Response ___ Code Blue ___ Other (describe below) Pastoral Care Referral From _x__ Patient ___ Family ___ Nurse ___ Physician ___ Examiner Of Currency ___ [place] ___ Other (describe below) Sacrament/Intervention _x__ Active listening ___ Anointing ___ Anglican ___ Bereavement ___ Communion _x__ Marie exploration ___ _x_ Life review _x__ Prayer ___ Reconciliation ___ Sacrament of Sick _x__ Supportive presence ___ Wedding ___ Other (describe below) Pastoral Comments patient gives details on what happened to bring her to the hospital and to explain her husbands health condition; pt also reveals the suicidal of a friends grandson just recently and asks for prayers for all
--- NOTE | 2024-02-24 13:19 | CASEMGMT ---
EVER DELANEY Assessment Face to Face with patient for initial transition planning/care coordination assessment. EVER DELANEY introduced self and role at [facility], pt voices understanding. Pt is A&Ox4 and is resting comfortably in bed and is calm. Care providers, pharmacy, and demographics verified. Admitting dx: CLARENCE HARVEY Strata: 2 PCP: Elisa Baxter Specialists: [facility], Ruht IRAHETA (PM), [facility] Preferred Pharmacy: [facility] Insurance: [facility] Prescription Benefit: Yes LNOK: Krystal Carpenter (H), Chuck Carpenter (Son) Living Arrangements: Pt lives with her and moognj-ay-mgs in a 1.5 story home with a FFSU and 2 steps to enter ADLs/IADLs: States ind Transportation: Self, DME: Home oxygen through [employer]. Pt states that she wears 2L continuous and that she has a concentrator and a pulse ox. Pt states that her will be bringing in a portable tank at time of DC. Pt also has a nebulizer, incentive spirometer, shower chair, raised TS, cane, and rollator. HHC/SNF: Denies history or needs Pt?s goal: Return home Plan: home with OP therapy. CM to follow for increased O2 Rx. Pt states that she has an appt with [facility] already established for Mar 02. Pt declined HH or CCN needs. Pt states that her son lives close as well. Pt states that she feels safe returning home with her once she is medically ready with the plan to attend OP therapy and declined further needs at this time. Report given to COLLECTION SUPERVISOR CM. Deena Jameson RN, CM
[2024-02-24] MEDS: Nortriptyline 25 MG Capsule PO (21:42)
[2024-02-25] VITALS (10 sets, daily range): BP systolic 114–140; BP diastolic 69–87; PULSE 80–106; RESP 16–18; TEMP 36.2–36.8; O2SAT 87–98; BMI 43.6
[2024-02-25] MEDS: Levothyroxine 75 MCG Tablet PO (05:36)
[2024-02-25] MEDS: HYDROcodone Bitartrate/Apap 5/325 Tablet PO ×2 (05:36→21:15)
[2024-02-25] MEDS: Gabapentin 300 MG Capsule PO ×3 (09:21→17:19)
[2024-02-25] MEDS: Multivitamins,Therapeutic Tablet 1 TABLET PO (09:21)
[2024-02-25] MEDS: Folic Acid 1 MG Tablet PO (09:21)
[2024-02-25] MEDS: Furosemide 40 MG Tablet PO (09:22)
[2024-02-25] MEDS: Metoprolol Tartrate 25 MG Tablet PO ×2 (09:22→21:16)
[2024-02-25] MEDS: Vitamin B Comp W-C Capsule 1 CAP PO (09:22)
[2024-02-25] MEDS: Lactobacillis Acidophilus 1 CAP PO ×4 (09:22→21:16)
[2024-02-25] MEDS: DULoxetine Hcl 30 MG Capsule PO (09:23)
[2024-02-25] MEDS: Hydroxychloroquine 200 MG Tablet PO (09:23)
[2024-02-25] MEDS: Ascorbic Acid 500 MG Tablet 1000 MG PO ×2 (09:24→17:19)
[2024-02-25] MEDS: Pantoprazole Sodium 40 MG Tablet PO (09:25)
[2024-02-25] MEDS: guaiFENesin 1,200 MG Tablet 1200 MG PO ×2 (09:25→21:16)
[2024-02-25] MEDS: MethylPREDNISolone 125 MG/2 ML Vial 60 MG IV ×2 (09:26→21:17)
[2024-02-25] MEDS: Enoxaparin 40 MG/0.4 ML Syringe SC (09:26)
[2024-02-25] MEDS: Cholecalciferol (Vit D3) 125 MCG CAPSULE (5,000 UNITS) PO (09:26)
[2024-02-25] MEDS: 0.9% Saline Lock 10 ML Syringe IV (09:32)
--- NOTE | 2024-02-25 09:36 | DS.PCM_ITS ---
Providers Date of Admission: 02/24/24 Date of Discharge: 02/25/24 Primary Care Physician: Dr. Elisa Baxter MD Reason For Visit: PNEUMONIA ACUTE SARCOID FLARE RESPIRATORY INSUFF Diagnosis Discharge Diagnosis (1) Pneumonia: Status: Acute Code(s): J18.9 - Pneumonia, unspecified organism Qualifiers: Laterality: bilateral Lung location: unspecified part of lung P neumonia type: due to unspecified organism Qualified Code(s): J18.9 - Pneumonia, unspecified organism (2) Sarcoidosis of lung: Status: Acute Code(s): D86.0 - Sarcoidosis of lung (3) Respiratory insufficiency: Status: Acute Code(s): R06.89 - Other abnormalities of breathing (4) Near syncope: Status: Acute Code(s): R55 - Syncope and collapse (5) Morbid obesity with BMI of 40.0-44.9, adult: Status: Acute Code(s): E66.01 - Morbid (severe) obesity due to excess calories; Z68.41 - Body mass index [BMI] 40.0-44.9, adult (6) HARRISON on CPAP: Status: Chronic Code(s): G47.33 - Obstructive sleep apnea (adult) (pediatric); Z99.89 - Dependence on other enabling machines and devices (7) Osteoarthritis: Status: Acute Code(s): M19.90 - Unspecified osteoarthritis, unspecified site Qualifiers: Osteoarthritis location: spine Spinal osteoarthritis complication: w ithout myelopathy or radiculopathy Spinal region: lumbosacral Qualified Code(s): M47.817 - Spondylosis without myelopathy or radiculopathy, lumbosacral region (8) Low back pain: Status: Acute Code(s): M54.50 - Low back pain, unspecified Qualifiers: Back pain laterality: bilateral Chronicity: chronic Sciatica presence: without sciatica Qualified Code(s): M54.50 - Low back pain, unspecified; G89.29 - Other chronic pain (9) Lumbar stenosis: Status: Acute Code(s): M48.061 - Spinal stenosis, lumbar region without neurogenic claudication Qualifiers: Neurogenic claudication status: with neurogenic claudication Qualified Code(s): M48.062 - Spinal stenosis, lumbar region with neurogenic claudication Plan Patient was admitted with shortness of breath with history of chronic hypoxic respiratory failure, on 2 L of oxygen at baseline with 3 L on exertion and wears CPAP intermittently. She was admitted with shortness of breath while doing grocery mild lightheaded and near syncope symptoms but did not pass out. Gets easily dyspnea on exertion She has history of sarcoidosis and used to follow Dr. Valdivia. She increasingly get more sinus drainage and postnasal discharge on CPAP 1. Pneumonia probably viral: Patient admitted in PCU. Chest CTA was done which shows no evidence of pulmonary emboli but increased opacities throughout right lung suggesting inflammatory or viral pneumonitis for possible chronic changes of fibrosis and scarring. Mild increased volume loss. Minimal opacities in left lung likely inflammatory. Increased mediastinal and hilar adenopathy may be reactive.Urinary antigens, respiratory panel are negative. Triple PCR for SARS-CoV-2, flu and RSV are negative. Empirically on IV ceftriaxone and azithromycin. Sputum culture pending. Patient discharged on cefdinir. 3. Possible flare of sarcoidosis from pneumonia: Patient is doing IV Solu- Medrol. Discharged on burst therapy of Solu-Medrol 4. Near syncopal event: 2D echo was done shows EF 60%. 5. Other multiple comorbidities including hypertension, hypothyroidism on levothyroxine, history of RA on methotrexate, sarcoidosis on hydroxychloroquine, history of DVT/PE in the past, chronic lower back pain and chronic diastolic heart failure Discharge medication reconciliation done. Discharge follow-up instructions completed. Discharge process discussed with the patient and all questions were answered to patient's satisfaction. Follow with PCP in 1 to 2 weeks Total time spent, exact 35 minutes on discharge meds reconciliation, examination, coordination of care with nurses and ancillary staff, review of imaging and blood test and discussion with the patient on follow-up instructions. Medications at Discharge Home Medications hydroxychloroquine 200 mg tablet 200 mg PO DAILYCM immunosuppresent 07/05/15 ferrous sulfate 325 mg (65 mg iron) tablet 325 mg PO DAILY 05/28/17 multivitamin (Multiple Vitamins tablet) 1 tab PO DAILY dietary 05/28/17 vitamin B complex (B Complex-Vitamin B12 tablet) 1 tab PO QDAY dietary supplement 05/28/17 clobetasol 0.05 % topical ointment 1 applic topical DAILY PRN SKIN CONDITION 05/17/20 levothyroxine 75 mcg tablet 75 mcg PO DAILY thyroid 05/17/20 lorazepam 1 mg tablet 0.5 mg PO DAILY PRN Anxiety 05/17/20 methotrexate sodium 2.5 mg tablet 15 mg PO SHARP immunosuppresent 05/17/20 nortriptyline 25 mg capsule 25 mg PO QHS nerve pain 07/08/22 ondansetron HCl 4 mg tablet 4 mg PO Q8H PRN nausea and vomiting 07/08/22 zzeiofy-wclvnaaxi-jioi 333 mg-133 mg-5 mg tablet 4 tab PO DAILY SUPPLEMENT 09/09/22 Nebulizer machine #1 ea 12/02/22 duloxetine 30 mg capsule,delayed release 30 mg PO DAILY depression 01/14/23 folic acid 1 mg tablet 1 mg PO DAILY dietary supplement 01/14/23 hydrocodone-acetaminophen 5-325mg 5mg-325mg 1 tab PO TID PRN pain 01/14/23 gabapentin 300 mg capsule 300 mg PO TIDCM pain 04/22/23 metoprolol tartrate 25 mg tablet 25 mg PO BID #60 tabs 04/22/23 furosemide 40 mg tablet 40 mg PO DAILY #90 tabs 11/19/23 potassium chloride 20 mEq tablet,extended release(part/cryst) (Klor-Con M) 20 meq PO DAILYCM PRN hypokalemia 02/23/24 cefdinir 300 mg capsule 300 mg PO BID 5 days #10 caps 02/25/24 prednisone 20 mg tablet 40 mg (2 x 20 mg) PO DAILY 5 days #10 tabs 02/25/24 Physical Exam Narrative Seen and examined Patient on baseline 2 L of oxygen. Currently on 1-2 L of oxygen. Bringing up phlegm. History of sarcoidosis Physical exam General: Alert, Oriented x3, Cooperative HEENT: Atraumatic, PERRLA, EOMI, Normocephalic Oral: No Gingival or Mucosal Lesions/ Ulcerations Neck: Supple, No JVD, Negative Carotid Bruits Chest wall/Lungs: Air entry diminished in bilateral lung bases. No crepitation/rhonchi Cardiovascular: Regular rate, Regular Rhythm, Normal S1, Normal S2, No M/G/R Abdomen: Bowel Sounds Present, Soft, Non Tender, Non-Distended : No dysuria. No renal angle tenderness. No suprapubic tenderness. Extremities: No edema, Capillary Refill Less than 3 Seconds Skin: No rashes, No breakdown Musculoskeletal: No Tenderness to Palpation of Joints or Extremities Neurological: Cranial nerves II-XII grossly intact, DTR 2+/4. No acute focal neurological deficit. Psych/Mental Status: Normal Affect, Appropriate. Weight / BMI Weight Weight: 231 lb 0.711 oz Body Mass Index (BMI) 43.6 ABG / Lab / Microbiology Data 02/24/24 05:40 02/24/24 05:40 Microbiology: Microbiology 02/24/24 13:16 Urine, Clean Catch Legionella Antigen - Final 02/24/24 13:16 Urine, Clean Catch Streptococcus pneumoniae Antigen (M - Final 02/24/24 03:03 Mucosa - Nasopharyngeal Respiratory Panel (PCR) - Final 02/23/24 18:35 Mucosa - Nose SARS-CoV-2, Influenza & RSV (PCR) - Final Radiography Diagnostic Testing: Radiology Impression Echocardiogram 02/24/24 04:20 Interpretation Summary Normal LV size. Left ventricular systolic function is normal. The left ventricular ejection fraction is 60 %. There is mild to moderate mitral annular calcification. Hiatal hernia noted Ordering Physician: David Granda Referring Physician: Elisa Baxter Performed By: Corinna Ac, JANUSZ, RVT D/C Instructions Discharge Diet: No restrictions Weight Bearing Status: Weight bearing as tolerated Call your doctor if you observe: Fever of 101 or Higher, Coldness, Increased Pain, Numbness or Tingling, Change in Color, Inability to urinate, Inability to have a bowel movement, Using more than 1 pad per hour, Shortness of breath, Dizziness, Fainting spells, Swelling in the ankles, Chest pain, Prolonged hiccupping, Increased palpitations (irregular heartbeat) and Calf discomfort DC O2, CPAP, BIPAP Needs PSN CPAP & BiPAP: BiPAP & CPAP Settings per PSN Fraction of Inspired Oxygen ( 2 02/23/24 18:38 FIO2) Home O2 Discharge instructions: No When: IN 2 WEEKS Meaningful Use Info Meaningful Use Meaningful Use Diagnoses (Choose all that apply): None applicable Ischemic Stroke Statin Dosing Therapy Reference: STATIN DOSE THERAPY REFERENCE: * Patients > 75 years receive moderate or high dose statin therapy. * Patients 75 years or YOUNGER should receive HIGH intensity statin dose unless contraindicated. You will be required to document reason for non-treatment if statin daily dose does not meet guidelines. HIGH DOSE STATIN THERAPY DAILY Atorvastatin > than or = to 40 mg Rosuvastatin > than or = to 20 mg Amlodipine + Atorvastatin > than or = to 2.5/40 mg Ezetimibe + Simvastatin 10/80 mg Simvastatin 80mg Discharge Plan Admission Admit Date/Time: 02/24/24 02:30 Primary Reason for Your Visit: Sarcoidosis, possible pneumonia/viral pneumonia Attending Provider: Fareed Smart Primary Care Provider: Elisa Baxter Consulting Providers: David Granda Discharge Orders/Prescriptions Prescriptions: New cefdinir 300 mg capsule 300 mg PO BID 5 Days Qty: 10 0RF prednisone 20 mg tablet 40 mg PO DAILY 5 Days Qty: 10 0RF Continued vitamin B complex [B Complex-Vitamin B12] tablet 1 tab PO QDAY multivitamin [Multiple Vitamins] tablet 1 tab PO DAILY ferrous sulfate 325 mg (65 mg iron) tablet 325 mg PO DAILY lorazepam 1 mg tablet 0.5 mg PO DAILY PRN (Reason: Anxiety) clobetasol 0.05 % ointment 1 applic TOPICAL DAILY PRN (Reason: SKIN CONDITION) levothyroxine 75 mcg tablet 75 mcg PO DAILY methotrexate sodium 2.5 mg tablet 15 mg PO SHARP ondansetron HCl 4 mg tablet 4 mg PO Q8H PRN (Reason: nausea and vomiting) nortriptyline 25 mg capsule 25 mg PO QHS hydrocodone-acetaminophen 5-325 mg tablet 1 tab PO TID PRN (Reason: pain) duloxetine 30 mg capsule,delayed release(DR/EC) 30 mg PO DAILY folic acid 1 mg tablet 1 mg PO DAILY metoprolol tartrate 25 mg tablet 25 mg PO BID Qty: 60 12RF gabapentin 300 mg capsule 300 mg PO TIDCM Patient Comments: Taking 2 at [id number] hydroxychloroquine 200 MG tablet 200 mg PO DAILYCM zqcwxst-jyogfzhue-zmsl 333-133-5 mg tablet 4 tab PO DAILY potassium chloride [Klor-Con M20] 20 mEq Tablet,Er Particles/Crystals 20 meq PO DAILYCM PRN (Reason: hypokalemia) (DME) Nebulizer machine See Rx Instructions .ROUTE .MEDSUPPLY Qty: 1 0RF Rx Instructions: As directed furosemide 40 mg tablet 40 mg PO DAILY Qty: 90 3RF Referrals / Follow Up: Elisa Baxter MD [Primary Care Provider] - Chaya Mcgill NP, CERTIFIED MASTER SAFECR[employer]ER-C [Med Staff - Adv Practice Prof] - Within 2 Weeks Disposition Disposition (needs filled in before D/C Order can be placed): Home, Self Care Charges/Coding Visit Charges Inpatient E&M: 25842 Disch Hosp >30min
[2024-02-25] MEDS: Ceftriaxone 2 GM in 0.9% Normal Saline (50mL MB+) 50 ML IV (11:42)
[2024-02-25] MEDS: Ferrous Sulfate 325 MG Tablet PO (11:43)
--- NOTE | 2024-02-25 12:29 | PN.HOSP_ITS ---
Reason for Visit Reason for Visit: Diagnoses Sarcoidosis of lung (02/24/24) Morbid (severe) obesity due to excess calories (02/24/24) Obstructive sleep apnea (adult) (pediatric) (02/24/24) Other chronic pain (02/24/24) Pneumonia, unspecified organism (02/24/24) Spondylosis without myelopathy or radiculopathy, lumbosacral region (02/24/24) Spinal stenosis, lumbar region with neurogenic claudication (02/24/24) Low back pain, unspecified (02/24/24) Other abnormalities of breathing (02/24/24) Syncope and collapse (02/24/24) Body mass index [BMI] 40.0-44.9, adult (02/24/24) Dependence on other enabling machines and devices (02/24/24) Objective Data Objective Data Vital Signs: Vital Signs Temp Pulse Resp BP Pulse Ox O2 Del Method O2 Flow Rate 98.2 F 95 16 126/74 H 95 Nasal Cannula 2 02/25/24 09:43 02/25/24 09:43 02/25/24 09:43 02/25/24 09:43 02/25/24 09:43 02/25/24 09:50 02/25/24 09:50 FiO2 2 02/23/24 18:38 Oxygen Flow Rate (L/min) 2 Oxygen Delivery Method Nasal Cannula Weight: 231 lb 0.711 oz Body Mass Index (BMI) 43.6 Intake & Output: Intake and Output for Last 24 Hours 02/23/24 02/24/24 02/25/24 23:59 23:59 23:59 Intake Total 735 / 735 Balance 735 / 735 Lab / Micro Data 02/24/24 05:40 02/24/24 05:40 Micro: Microbiology 02/24/24 13:16 Urine, Clean Catch Legionella Antigen - Final 02/24/24 13:16 Urine, Clean Catch Streptococcus pneumoniae Antigen (M - Final 02/24/24 03:03 Mucosa - Nasopharyngeal Respiratory Panel (PCR) - Final 02/23/24 18:35 Mucosa - Nose SARS-CoV-2, Influenza & RSV (PCR) - Final Radiography Diagnostic Testing: Radiology Impression Echocardiogram 02/24/24 04:20 Interpretation Summary Normal LV size. Left ventricular systolic function is normal. The left ventricular ejection fraction is 60 %. There is mild to moderate mitral annular calcification. Hiatal hernia noted Ordering Physician: David Granda Referring Physician: Elisa Baxter Performed By: Corinna Ac, JANUSZ, RVT Rhythm Strip Rhythm Strip: Sinus Tach Rate: 111 Ectopy: PAC(s) Physical Exam Narrative Seen and examined Patient on baseline 2 L of oxygen. Currently on 1-2 L of oxygen. Bringing up phlegm. History of sarcoidosis. Patient is feeling nauseous. Does not feel right or go to go home. Physical exam General: Alert, Oriented x3, Cooperative HEENT: Atraumatic, PERRLA, EOMI, Normocephalic Oral: No Gingival or Mucosal Lesions/ Ulcerations Neck: Supple, No JVD, Negative Carotid Bruits Chest wall/Lungs: Air entry diminished in bilateral lung bases. No crepitation/rhonchi Cardiovascular: Regular rate, Regular Rhythm, Normal S1, Normal S2, No M/G/R Abdomen: Bowel Sounds Present, Soft, Non Tender, Non-Distended : No dysuria. No renal angle tenderness. No suprapubic tenderness. Extremities: No edema, Capillary Refill Less than 3 Seconds Skin: No rashes, No breakdown Musculoskeletal: No Tenderness to Palpation of Joints or Extremities Neurological: Cranial nerves II-XII grossly intact, DTR 2+/4. No acute focal neurological deficit. Psych/Mental Status: Normal Affect, Appropriate. Assessment & Plan Assessment/Plan (1) Pneumonia: QUALIFIERS: Pneumonia type: due to unspecified organism L aterality: bilateral Lung location: unspecified part of lung Qualified Code(s): J18.9 - Pneumonia, unspecified organism (2) Sarcoidosis of lung: (3) Respiratory insufficiency: (4) Near syncope: (5) Morbid obesity with BMI of 40.0-44.9, adult: (6) HARRISON on CPAP: (7) Osteoarthritis: QUALIFIERS: Osteoarthritis location: spine Spinal region: l umbosacral Spinal osteoarthritis complication: without myelopathy or radiculopathy Qualified Code(s): M47.817 - Spondylosis without myelopathy or radiculopathy, lumbosacral region (8) Low back pain: QUALIFIERS: Chronicity: chronic Back pain laterality: bilateral Sciatica presence: without sciatica Qualified Code(s): M54.50 - Low back pain, unspecified; G89.29 - Other chronic pain (9) Lumbar stenosis: QUALIFIERS: Neurogenic claudication status: with neurogenic claudication Qualified Code(s): M48.062 - Spinal stenosis, lumbar region with neurogenic claudication PLAN: Plan Patient was admitted with shortness of breath with history of chronic hypoxic respiratory failure, on 2 L of oxygen at baseline with 3 L on exertion and wears CPAP intermittently. She was admitted with shortness of breath while doing grocery mild lightheaded and near syncope symptoms but did not pass out. Gets easily dyspnea on exertion She has history of sarcoidosis and used to follow Dr. Valdivia. She increasingly get more sinus drainage and postnasal discharge on CPAP 1. Pneumonia probably viral: Patient admitted in PCU. Chest CTA was done which shows no evidence of pulmonary emboli but increased opacities throughout right lung suggesting inflammatory or viral pneumonitis for possible chronic changes of fibrosis and scarring. Mild increased volume loss. Minimal opacities in left lung likely inflammatory. Increased mediastinal and hilar adenopathy may be reactive.Urinary antigens, respiratory panel are negative. Triple PCR for SARS-CoV-2, flu and RSV are negative. Empirically on IV ceftriaxone and azithromycin. Sputum culture pending. 02/24: Monitor in the morning patient is feeling better but then nauseous. Metoclopramide is ordered. Discharge is canceled. Continue IV ceftriaxone and azithromycin 3. Possible flare of sarcoidosis from pneumonia: Patient is doing IV Solu- Medrol. Continue Solu-Medrol 4. Near syncopal event: 2D echo was done shows EF 60%. 5. Other multiple comorbidities including hypertension, hypothyroidism on levothyroxine, history of RA on methotrexate, sarcoidosis on hydroxychloroquine, history of DVT/PE in the past, chronic lower back pain and chronic diastolic heart failure Charges/Coding Visit Charges Inpatient E&M: 33048 Subs Hosp L2
[2024-02-25] MEDS: Metoclopramide 10 MG/2 ML Vial 5 MG IV (14:13)
[2024-02-25] MEDS: Azithromycin 250 MG Tablet 500 MG PO (14:14)
[2024-02-25] MEDS: Nortriptyline 25 MG Capsule PO (21:16)
[2024-02-26 04:48] VITALS: BMI 43.2
[2024-02-26 05:00] VITALS: BP 136/86; PULSE 85; RESP 16; TEMP 36.4; O2SAT 98
[2024-02-26] MEDS: Levothyroxine 75 MCG Tablet PO (05:16)
[2024-02-26] MEDS: HYDROcodone Bitartrate/Apap 5/325 Tablet PO (09:10)
[2024-02-26] MEDS: Gabapentin 300 MG Capsule PO ×2 (09:11→12:05)
[2024-02-26] MEDS: Azithromycin 250 MG Tablet 500 MG PO (09:12)
[2024-02-26] MEDS: Enoxaparin 40 MG/0.4 ML Syringe SC (09:12)
[2024-02-26] MEDS: guaiFENesin 1,200 MG Tablet 1200 MG PO (09:13)
[2024-02-26] MEDS: MethylPREDNISolone 125 MG/2 ML Vial 60 MG IV (09:16)
[2024-02-26] MEDS: 0.9% Saline Lock 10 ML Syringe IV (09:16)
[2024-02-26] MEDS: Pantoprazole Sodium 40 MG Tablet PO (09:16)
[2024-02-26] MEDS: Cholecalciferol (Vit D3) 125 MCG CAPSULE (5,000 UNITS) PO (09:18)
[2024-02-26] MEDS: Lactobacillis Acidophilus 1 CAP PO ×2 (09:18→15:18)
[2024-02-26] MEDS: Folic Acid 1 MG Tablet PO (09:19)
[2024-02-26] MEDS: Furosemide 40 MG Tablet PO (09:19)
[2024-02-26] MEDS: Multivitamins,Therapeutic Tablet 1 TABLET PO (09:19)
[2024-02-26] MEDS: Vitamin B Comp W-C Capsule 1 CAP PO (09:19)
[2024-02-26] MEDS: DULoxetine Hcl 30 MG Capsule PO (09:20)
[2024-02-26] MEDS: Ascorbic Acid 500 MG Tablet 1000 MG PO (09:20)
[2024-02-26] MEDS: Ceftriaxone 2 GM in 0.9% Normal Saline (50mL MB+) 50 ML IV (09:25)
[2024-02-26 09:28] VITALS: BP 102/67; PULSE 78; RESP 18; TEMP 36.6; O2SAT 100
--- NOTE | 2024-02-26 09:30 | PCM.DC ---
Discharge Instructions Diet Discharge Diet: No restrictions DC O2, CPAP, BIPAP needs PSN CPAP & BiPAP: BiPAP & CPAP Settings per PSN Fraction of Inspired Oxygen ( 2 02/23/24 18:38 FIO2) Home O2 Discharge instructions: No Dressing / Incision Discharge Activity: Return to Normal Activity Weight Bearing Status: Weight bearing as tolerated Dressing / Incision Call your doctor if you observe: Fever of 101 or Higher, Coldness, Increased Pain, Numbness or Tingling, Change in Color, Inability to urinate, Inability to have a bowel movement, Using more than 1 pad per hour, Shortness of breath, Dizziness, Fainting spells, Swelling in the ankles, Chest pain, Prolonged hiccupping, Increased palpitations (irregular heartbeat) and Calf discomfort Follow Up Care When: IN 2 WEEKS Test Results: Test results from this visit will be discussed in further detail at your follow-up appointment, if applicable. Discharge Plan Admission Admit Date/Time: 02/24/24 02:30 Primary Reason for Your Visit: Sarcoidosis, possible pneumonia/viral pneumonia Attending Provider: Fareed Smart Primary Care Provider: Elisa Baxter Consulting Providers: David Granda Discharge Orders/Prescriptions Prescriptions: New cefdinir 300 mg capsule 300 mg PO BID 5 Days Qty: 10 0RF Continued vitamin B complex [B Complex-Vitamin B12] tablet 1 tab PO QDAY multivitamin [Multiple Vitamins] tablet 1 tab PO DAILY ferrous sulfate 325 mg (65 mg iron) tablet 325 mg PO DAILY lorazepam 1 mg tablet 0.5 mg PO DAILY PRN (Reason: Anxiety) clobetasol 0.05 % ointment 1 applic TOPICAL DAILY PRN (Reason: SKIN CONDITION) levothyroxine 75 mcg tablet 75 mcg PO DAILY methotrexate sodium 2.5 mg tablet 15 mg PO SHARP ondansetron HCl 4 mg tablet 4 mg PO Q8H PRN (Reason: nausea and vomiting) nortriptyline 25 mg capsule 25 mg PO QHS hydrocodone-acetaminophen 5-325 mg tablet 1 tab PO TID PRN (Reason: pain) duloxetine 30 mg capsule,delayed release(DR/EC) 30 mg PO DAILY folic acid 1 mg tablet 1 mg PO DAILY metoprolol tartrate 25 mg tablet 25 mg PO BID Qty: 60 12RF gabapentin 300 mg capsule 300 mg PO TIDCM Patient Comments: Taking 2 at [id number] hydroxychloroquine 200 MG tablet 200 mg PO DAILYCM ubourme-ekgwuwuhe-wyfu 333-133-5 mg tablet 4 tab PO DAILY potassium chloride [Klor-Con M20] 20 mEq Tablet,Er Particles/Crystals 20 meq PO DAILYCM PRN (Reason: hypokalemia) (DME) Nebulizer machine See Rx Instructions .ROUTE .MEDSUPPLY Qty: 1 0RF Rx Instructions: As directed furosemide 40 mg tablet 40 mg PO DAILY Qty: 90 3RF Referrals / Follow Up: Elisa Baxter MD [Primary Care Provider] - Chaya Mcgill NP, PIT FURNACE OPERATOR-C [Med Staff - Adv Practice Prof] - Within 2 Weeks Disposition Disposition (needs filled in before D/C Order can be placed): Home, Self Care
[2024-02-26 09:59] LABS: Absolute Lymphocyte Count 0.78 X10^3/uL (0.83-4.51); Basophil# 0.01 X10^3/uL; Basophil% 0.1 % (0-1); Hematocrit 34.6 % (37-47); Hemoglobin 11.4 g/dL (12.0-15.0); Lymphocyte # 0.78 X10^3/ul (0.83-4.51); Lymphocyte % 10.8 % (19-41); Mean Corp Hgb Conc 32.9 g/dL (32-36); Mean Corpuscular Hgb 32.6 pg (27.0-32.0); Mean Corpuscular Volume 98.9 fL (81-99); Mean Platelet Vol. 9.5 fl (6.2-12.0); Monocyte# 0.38 X10^3/uL; Monocyte% 5.2 % (0-10); NRBC Flagged by Analyzer 0 % (0-5); Neutrophil # 6.04 X10^3/uL (2.7-7.7); Neutrophil % 83.3 % (47-70); Platelet Count 304 K/mm3 (150-450); RBC Distribution Width CV 13.3 % (11.6-14.6); RBC Distribution Width SD 48.3 fl (35.1-43.9); White Blood Count 7.3 K/mm3 (4.4-11.0)
[2024-02-26 10:00] VITALS: O2SAT 100
--- NOTE | 2024-02-26 10:40 | PCM.DC.SUM ---
Providers Date of Admission: 02/24/24 Date of Discharge: 02/26/24 Primary Care Physician: Dr. Elisa Baxter MD Reason For Visit: PNEUMONIA ACUTE SARCOID FLARE RESPIRATORY INSUFF Diagnosis Discharge Diagnosis (1) Pneumonia: Status: Acute Code(s): J18.9 - Pneumonia, unspecified organism Qualifiers: Laterality: bilateral Lung location: unspecified part of lung Pneumonia type: due to unspecified organism Qualified Code(s): J18.9 - Pneumonia, unspecified organism (2) Sarcoidosis of lung: Status: Acute Code(s): D86.0 - Sarcoidosis of lung (3) Respiratory insufficiency: Status: Acute Code(s): R06.89 - Other abnormalities of breathing (4) Near syncope: Status: Acute Code(s): R55 - Syncope and collapse (5) Morbid obesity with BMI of 40.0-44.9, adult: Status: Acute Code(s): E66.01 - Morbid (severe) obesity due to excess calories; Z68.41 - Body mass index [BMI] 40.0-44.9, adult (6) HARRISON on CPAP: Status: Chronic Code(s): G47.33 - Obstructive sleep apnea (adult) (pediatric); Z99.89 - Dependence on other enabling machines and devices (7) Osteoarthritis: Status: Acute Code(s): M19.90 - Unspecified osteoarthritis, unspecified site Qualifiers: Osteoarthritis location: spine Spinal osteoarthritis complication: without myelopathy or radiculopathy Spinal region: lumbosacral Qualified Code(s): M47.817 - Spondylosis without myelopathy or radiculopathy, lumbosacral region (8) Low back pain: Status: Acute Code(s): M54.50 - Low back pain, unspecified Qualifiers: Back pain laterality: bilateral Chronicity: chronic Sciatica presence: without sciatica Qualified Code(s): M54.50 - Low back pain, unspecified; G89.29 - Other chronic pain (9) Lumbar stenosis: Status: Acute Code(s): M48.061 - Spinal stenosis, lumbar region without neurogenic claudication Qualifiers: Neurogenic claudication status: with neurogenic claudication Qualified Code(s): M48.062 - Spinal stenosis, lumbar region with neurogenic claudication Plan Patient was admitted with shortness of breath with history of chronic hypoxic respiratory failure, on 2 L of oxygen at baseline with 3 L on exertion and wears CPAP intermittently. She was admitted with shortness of breath while doing grocery mild lightheaded and near syncope symptoms but did not pass out. Gets easily dyspnea on exertion She has history of sarcoidosis and used to follow Dr. Valdivia. She increasingly get more sinus drainage and postnasal discharge on CPAP 1. Pneumonia probably viral: Patient admitted in PCU. Chest CTA was done which shows no evidence of pulmonary emboli but increased opacities throughout right lung suggesting inflammatory or viral pneumonitis for possible chronic changes of fibrosis and scarring. Mild increased volume loss. Minimal opacities in left lung likely inflammatory. Increased mediastinal and hilar adenopathy may be reactive.Urinary antigens, respiratory panel are negative. Triple PCR for SARS-CoV-2, flu and RSV are negative. Empirically on IV ceftriaxone and azithromycin. Sputum culture pending. 02/24: Monitor in the morning patient is feeling better but then nauseous. Metoclopramide is ordered. Discharge is canceled. Continue IV ceftriaxone and azithromycin 02/25: Shortness of breath is better. Labs reviewed. oxygen testing reviewed and the patient requires home oxygen. The patient is ambulatory in home and in the community and requires home oxygen with portability. Advised to follow-up pulmonary in office in 2 weeks. Chronic hypoxic respiratory failure: Patient on 2 L of home oxygen at rest and 3 L/min on exertion. Pulse oximetry was done and pulse ox dropped to 77% with exertion and requires 4 L/min with exertion. I have reviewed the oxygen testing, and this patient qualifies for the home equipment and portability. The patient is mobile in the home and the community. 3. Possible flare of sarcoidosis from pneumonia: Patient is doing IV Solu-Medrol. Continue Solu-Medrol 4. Near syncopal event: 2D echo was done shows EF 60%. 5. Other multiple comorbidities including hypertension, hypothyroidism on levothyroxine, history of RA on methotrexate, sarcoidosis on hydroxychloroquine, history of DVT/PE in the past, chronic lower back pain and chronic diastolic heart failure Medications at Discharge Home Medications hydroxychloroquine 200 mg tablet 200 mg PO DAILYCM immunosuppresent 07/05/15 ferrous sulfate 325 mg (65 mg iron) tablet 325 mg PO DAILY 05/28/17 multivitamin (Multiple Vitamins tablet) 1 tab PO DAILY dietary 05/28/17 vitamin B complex (B Complex-Vitamin B12 tablet) 1 tab PO QDAY dietary supplement 05/28/17 clobetasol 0.05 % topical ointment 1 applic topical DAILY PRN SKIN CONDITION 05/17/20 levothyroxine 75 mcg tablet 75 mcg PO DAILY thyroid 05/17/20 lorazepam 1 mg tablet 0.5 mg PO DAILY PRN Anxiety 05/17/20 methotrexate sodium 2.5 mg tablet 15 mg PO SHARP immunosuppresent 05/17/20 nortriptyline 25 mg capsule 25 mg PO QHS nerve pain 07/08/22 ondansetron HCl 4 mg tablet 4 mg PO Q8H PRN nausea and vomiting 07/08/22 [id number]-[id number]-[id number] 333 mg-133 mg-5 mg tablet 4 tab PO DAILY SUPPLEMENT 09/09/22 Nebulizer machine #1 ea 12/02/22 duloxetine 30 mg capsule,delayed release 30 mg PO DAILY depression 01/14/23 folic acid 1 mg tablet 1 mg PO DAILY dietary supplement 01/14/23 hydrocodone-acetaminophen 5-325mg 5mg-325mg 1 tab PO TID PRN pain 01/14/23 gabapentin 300 mg capsule 300 mg PO TIDCM pain 04/22/23 metoprolol tartrate 25 mg tablet 25 mg PO BID blood pressure #60 tabs 04/22/23 furosemide 40 mg tablet 40 mg PO DAILY diuretic #90 tabs 11/19/23 potassium chloride 20 mEq tablet,extended release(part/cryst) (Klor-Con M) 20 meq PO DAILYCM PRN hypokalemia 02/23/24 cefdinir 300 mg capsule 300 mg PO BID 5 days #10 caps 02/25/24 prednisone 20 mg tablet 40 mg (2 x 20 mg) PO DAILY 5 days #10 tabs 02/25/24 Physical Exam Narrative Seen and examined Patient on baseline 2 L of oxygen. Currently on 1-2 L of oxygen. Mild cough with some sputum production. History of sarcoidosis. Nausea resolved. Physical exam General: Alert, Oriented x3, Cooperative HEENT: Atraumatic, PERRLA, EOMI, Normocephalic Oral: No Gingival or Mucosal Lesions/ Ulcerations Neck: Supple, No JVD, Negative Carotid Bruits Chest wall/Lungs: Air entry diminished in bilateral lung bases. No crepitation/rhonchi Cardiovascular: Regular rate, Regular Rhythm, Normal S1, Normal S2, No M/G/R Abdomen: Bowel Sounds Present, Soft, Non Tender, Non-Distended : No dysuria. No renal angle tenderness. No suprapubic tenderness. Extremities: No edema, Capillary Refill Less than 3 Seconds Skin: No rashes, No breakdown Musculoskeletal: No Tenderness to Palpation of Joints or Extremities Neurological: Cranial nerves II-XII grossly intact, DTR 2+/4. No acute focal neurological deficit. Psych/Mental Status: Normal Affect, Appropriate. Weight / BMI Weight Weight: 229 lb 0.964 oz Body Mass Index (BMI) 43.2 ABG / Lab / Microbiology Data 02/26/24 09:25 02/26/24 09:25 Laboratory: Laboratory Results - last 24 hr 02/26/24 09:25: WBC 7.3, RBC 3.50 L, Hgb 11.4 L, Hct 34.6 L, MCV 98.9, MCH 32.6 H, MCHC 32.9 D, RDW Std Deviation 48.3 H, RDW Coeff of Edilma 13.3, Plt Count 304, MPV 9.5, Immature Gran % (Auto) 0.600, Neut % (Auto) 83.3 H, Lymph % (Auto) 10.8 L, [place] % (Auto) 5.2, Eos % (Auto) 0.0, Baso % (Auto) 0.1, Absolute Neuts (auto) 6.0, Absolute Lymphs (auto) 0.78 L, Nucleated RBC % 0, Sodium 138, Potassium 3.6, Chloride 98, Carbon Dioxide 35.0 H, Anion Gap 5, BUN 17, Creatinine 0.63, Estim Creat Clear Calc 74.63, Est GFR (MDRD) Af Amer 121, Est GFR (MDRD) Non-Af 100, BUN/Creatinine Ratio 27.0 H, Glucose 120 H, Calcium 9.2 Microbiology: Microbiology 02/24/24 19:32 Sputum, Expectorated/Coughed Gram Stain - Final 02/24/24 19:32 Sputum, Expectorated/Coughed Respiratory Culture - Preliminary 02/24/24 13:16 Urine, Clean Catch Legionella Antigen - Final 02/24/24 13:16 Urine, Clean Catch Streptococcus pneumoniae Antigen (M - Final 02/24/24 03:03 Mucosa - Nasopharyngeal Respiratory Panel (PCR) - Final 02/23/24 18:35 Mucosa - Nose SARS-CoV-2, Influenza & RSV (PCR) - Final D/C Instructions Discharge Diet: No restrictions Weight Bearing Status: Weight bearing as tolerated Call your doctor if you observe: Fever of 101 or Higher, Coldness, Increased Pain, Numbness or Tingling, Change in Color, Inability to urinate, Inability to have a bowel movement, Using more than 1 pad per hour, Shortness of breath, Dizziness, Fainting spells, Swelling in the ankles, Chest pain, Prolonged hiccupping, Increased palpitations (irregular heartbeat) and Calf discomfort DC O2, CPAP, BIPAP Needs RN Home O2 Qualification: Home O2 Qualification: Is the patient on home oxygen Yes 02/26/24 11:58 Home O2 Qualification: AT REST 1-Pulse Ox at rest 94 02/26/24 11:58 1- Oxygen flow rate at rest 0 02/26/24 11:58 Home O2 Qualification: WITH AMBULATION 1- Pulse Ox with ambulation 77 02/26/24 11:58 1- Oxygen Flow Rate with 0 02/26/24 11:58 ambulation 2- Pulse Ox with ambulation 81 02/26/24 11:58 2- Oxygen Flow Rate with 1 02/26/24 11:58 ambulation 3- Pulse Ox with ambulation 84 02/26/24 11:58 3- Oxygen Flow Rate with 2 02/26/24 11:58 ambulation 4- Pulse Ox with ambulation 94 02/26/24 11:58 4- Oxygen Flow Rate with 4 02/26/24 11:58 ambulation 4- Stopped test - Unable to No 02/26/24 11:58 obtain pulse ox >89% w/ max oxyg PSN CPAP & BiPAP: BiPAP & CPAP Settings per PSN Fraction of Inspired Oxygen ( 2 02/23/24 18:38 FIO2) Home O2 Discharge instructions: No When: IN 2 WEEKS Meaningful Use Info Meaningful Use Meaningful Use Diagnoses (Choose all that apply): None applicable Ischemic Stroke Statin Dosing Therapy Reference: STATIN DOSE THERAPY REFERENCE: * Patients > 75 years receive moderate or high dose statin therapy. * Patients 75 years or YOUNGER should receive HIGH intensity statin dose unless contraindicated. You will be required to document reason for non-treatment if statin daily dose does not meet guidelines. HIGH DOSE STATIN THERAPY DAILY Atorvastatin > than or = to 40 mg Rosuvastatin > than or = to 20 mg Amlodipine + Atorvastatin > than or = to 2.5/40 mg Ezetimibe + Simvastatin 10/80 mg Simvastatin 80mg Discharge Plan Admission Admit Date/Time: 02/24/24 02:30 Primary Reason for Your Visit: Sarcoidosis, possible pneumonia/viral pneumonia Attending Provider: Fareed Smart Primary Care Provider: Elisa Baxter Consulting Providers: David Granda Discharge Orders/Prescriptions Prescriptions: New cefdinir 300 mg capsule 300 mg PO BID 5 Days Qty: 10 0RF prednisone 20 mg tablet 40 mg PO DAILY 5 Days Qty: 10 0RF Continued vitamin B complex [B Complex-Vitamin B12] tablet 1 tab PO QDAY multivitamin [Multiple Vitamins] tablet 1 tab PO DAILY ferrous sulfate 325 mg (65 mg iron) tablet 325 mg PO DAILY lorazepam 1 mg tablet 0.5 mg PO DAILY PRN (Reason: Anxiety) clobetasol 0.05 % ointment 1 applic TOPICAL DAILY PRN (Reason: SKIN CONDITION) levothyroxine 75 mcg tablet 75 mcg PO DAILY methotrexate sodium 2.5 mg tablet 15 mg PO SHARP ondansetron HCl 4 mg tablet 4 mg PO Q8H PRN (Reason: nausea and vomiting) nortriptyline 25 mg capsule 25 mg PO QHS hydrocodone-acetaminophen 5-325 mg tablet 1 tab PO TID PRN (Reason: pain) duloxetine 30 mg capsule,delayed release(DR/EC) 30 mg PO DAILY folic acid 1 mg tablet 1 mg PO DAILY metoprolol tartrate 25 mg tablet 25 mg PO BID Qty: 60 12RF gabapentin 300 mg capsule 300 mg PO TIDCM Patient Comments: Taking 2 at [id number] hydroxychloroquine 200 MG tablet 200 mg PO DAILYCM vaqbhhh-xabgfpglc-bbqs 333-133-5 mg tablet 4 tab PO DAILY potassium chloride [Klor-Con M20] 20 mEq Tablet,Er Particles/Crystals 20 meq PO DAILYCM PRN (Reason: hypokalemia) (DME) Nebulizer machine See Rx Instructions .ROUTE .MEDSUPPLY Qty: 1 0RF Rx Instructions: As directed furosemide 40 mg tablet 40 mg PO DAILY Qty: 90 3RF Referrals / Follow Up: Elisa Baxter MD [Primary Care Provider] - 03/05/24 8:50 am Mcgill,Chaya NURSING EDUCATOR, NURSING EDUCATOR-C [Med Staff - Adv Practice Prof] - 03/25/24 8:45 am () Disposition Disposition (needs filled in before D/C Order can be placed): Home, Self Care Charges/Coding Visit Charges Inpatient E&M: 90335 Disch Hosp >30min
[2024-02-26 10:55] LABS: Anion Gap 5 (5-15); BUN 17 mg/dL (7-18); Calcium,Total 9.2 mg/dL (8.5-10.1); Chloride 98 mmol/L (98-107); Creatinine, Serum 0.63 mg/dL (0.55-1.02); EST Glomerular Filtration Rate 100 mL/min (>60); Est Glom Filt Rate - Afr Amer 121 mL/min (>60); Estimated Creatinine Clearance 74.63 ml/min; Glucose 120 mg/dL (74-106); Potassium 3.6 mmol/L (3.5-5.1); Sodium Level 138 mmol/L (136-145)
[2024-02-26 11:58] VITALS: O2SAT 77; O2SAT 81; O2SAT 84; O2SAT 94
[2024-02-26] MEDS: Ferrous Sulfate 325 MG Tablet PO (12:02)
--- NOTE | 2024-02-26 12:52 | CASEMGMT ---
EVER DELANEY NOTE: Discharge order is in. Per therapy note today, pt declined need for therapy here. Pt verifies she is scheduled for OP therapy @ [facility] 03/02 and plans to go to this. Home O2 testing has been completed. Pt does not qualify for O2 @ rest, but does need 4 L/M w/exertion, as pulse ox had dropped to 77% on RA. Dr Smart notified. Pt aware she is to wear O2 @ 4 L/M w/exertion now and this was added to pt's discharge plan. She states she has 3 pulse ox's @ home and is aware to monitor her pulse, as it should be 89% or above. She states her sis-in-law will be taking her home @ discharge, but she does not get off of work until 6 PM. RN, Edith, made aware. Pt also states she will have her sis-in-law bring her portable O2 tank in for her to go home on. Pt would like to get meds delivered to her room @ dc. Call placed to the pharmacy and they were made aware. Cost is $14.89. Pt made aware. She will have her sis-in-law call the pharmacy to pay for this and she was provided w/[facility] retail phone number. Script for home O2 of 4 L/M w/exertion obtained from Dr Smart and sent to [facility] [employer] via [employer] along w/required documentation. iKrk QUEZADA RN, CM
[2024-02-26 15:19] VITALS: BP 124/74; PULSE 67; RESP 19; TEMP 36.8; O2SAT 94
== END 2024-02-26 15:59 | disposition home or self-care (01) | DRG 196 ==
LOC: ED 02-24 01:18 → PCU 02-24 02:25
PROVIDERS: Admitting Provider Internal Medicine; Emergency Provider Emergency Medicine; PCP Family Medicine; Visit Provider Internal Medicine
DX: D86.0 Sarcoidosis of lung (principal); J12.9 Viral pneumonia, unspecified; I50.32 Chronic diastolic (congestive) heart failure; Z68.41 Body mass index [BMI] 40.0-44.9, adult; J96.11 Chronic respiratory failure with hypoxia; K90.9 Intestinal malabsorption, unspecified; I11.0 Hypertensive heart disease with heart failure; M06.9 Rheumatoid arthritis, unspecified; D50.9 Iron deficiency anemia, unspecified; E03.9 Hypothyroidism, unspecified; E66.01 Morbid (severe) obesity due to excess calories; G47.33 Obstructive sleep apnea (adult) (pediatric); M48.062 Spinal stenosis, lumbar region with neurogenic claudication; M47.817 Spondylosis without myelopathy or radiculopathy, lumbosacral region; M43.16 Spondylolisthesis, lumbar region; R11.0 Nausea; R55 Syncope and collapse; G89.29 Other chronic pain; M81.0 Age-related osteoporosis without current pathological fracture; Z11.52 Encounter for screening for COVID-19; Z99.81 Dependence on supplemental oxygen; Z86.718 Personal history of other venous thrombosis and embolism; Z79.899 Other long term (current) drug therapy; Z98.84 Bariatric surgery status
CPT/HCPCS: 36415; 71046; 71275; 80048; 80053; 82607; 82746; 83735; 83880; 84100; 84443; 84484; 85025; 87070; 87205; 87449; 87631; 87633; 90662; 93005; 93306; 94668; 97165; 99252; 99285; Q9957; Q9967; A4216; C8929; G0463; J0696

== ENCOUNTER → 2024-03-15 | Outpatient (CLI) | payer MEDICARE, SELFPAY | END | disposition home or self-care (01) | LOC: SL 19:45 | PROVIDERS: PCP Family Medicine; Referring Provider Nurse Practitioner Acute Care; Visit Provider Nurse Practitioner Acute Care | DX: G47.33 Obstructive sleep apnea (adult) (pediatric) (principal); Z99.89 Dependence on other enabling machines and devices | CPT/HCPCS: 95811 ==

== ENCOUNTER 2024-05-03 15:07 | Emergency (ER) | payer MEDICARE, SELFPAY ==
[2024-05-03] VITALS (22 sets, daily range): BP systolic 89–146; BP diastolic 72–119; PULSE 18–123; RESP 18–42; TEMP 36.4–36.8; O2SAT 92–100; BMI 43.0
--- NOTE | 2024-05-03 16:45 | EKG12_ITS ---
Test Reason : Blood Pressure : */* mmHG Vent. Rate : 112 BPM Atrial Rate : 112 BPM P-R Int : 154 ms QRS Dur : 90 ms QT Int : 346 ms P-R-T Axes : 43 -48 38 degrees QTcB Int : 472 ms Sinus tachycardia Left anterior fascicular block Abnormal ECG Confirmed by Deandre De La Rosa ([id number]), publication editor SARA FORREST ([id number]) on 05/04/2024 10:41:46 AM Referred By: LANCE Confirmed By: Deandre De La Rosa
--- NOTE | 2024-05-03 16:46 | CT_ITS ---
PROCEDURE: SPINE CERVICAL WITHOUT CONTRAS REASON FOR EXAM: Trauma. TECHNIQUE: Cervical spine CT without contrast. Multiplanar reformats were generated. COMPARISON: 01/20/2023 FINDINGS: No fracture or acute malalignment identified. Vertebral body heights are preserved. Trace likely degenerative retrolisthesis at C4-C5. Thoracolumbar levoscoliosis. Demineralization. Mild degenerative disc disease favoring C4-C6. No high-grade spinal canal stenosis. Variable bony foraminal stenosis, up to at least moderate bilaterally at C5-C6, suboptimally delineated by CT. Degenerative changes at C1-C2 including a small posterior soft tissue pannus. Partially imaged opacities in the right lung apex, grossly similar to 02/23/2024, better evaluated at that time. Suspect partially imaged right supraclavicular/right paratracheal node measuring at least 1.8 x 2.[address]/Spine Cervical without Contras IMPRESSION: 1. Demineralization without acute cervical spinal fracture or malalignment iden tified. 2. Partially imaged right supraclavicular/paratracheal lymphadenopathy, suspici ous for possible metastatic disease in this patient with known history of malignancy. Recommend clinical/oncologic follow- up for this as well as right apical pulmonary opacities, both better evaluated on dedicated CT chest abdomen and pelvis, repo rted separately. 3. Additional description as above. One or more dose reduction techniques were used (e.g., Automated exposure contr ol, adjustment of the mA and/or kV according to patient size, use of iterative reconstruction technique). Reading Location: [facility]
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
[2024-05-03] MEDS: Morphine 4 MG/ML Syringe IV ×2 (17:12→20:29)
[2024-05-03] MEDS: Ondansetron 4 MG/2 ML Vial IV (17:13)
[2024-05-03 17:25] LABS: Bedside Glucose 105 mg/dL (74-106)
--- NOTE | 2024-05-03 17:52 | RAD_ITS ---
PROCEDURE: FEMUR MIN 2 VIEWS REASON FOR EXAM: Pain. Injury. TECHNIQUE: Two view(s) of right femur were obtained. COMPARISON: None. FINDINGS: No acute fracture or dislocation is identified. Degenerative changes are present. Visualized soft tissues are unremarkable. There is an old fracture deformity of the proximal fibula. RAD/Femur Min 2 Views IMPRESSION: 1. No acute osseous abnormality. 2. Degenerative changes. Reading Location: [facility]
--- NOTE | 2024-05-03 17:52 | RAD_ITS ---
PROCEDURE: Left hip with pelvis REASON FOR EXAM: Pain. Injury. TECHNIQUE: Two views of the left hip and single frontal view of the pelvis were obtained. COMPARISON: None. FINDINGS: No acute fracture or dislocation is identified. Mild degenerative changes are present. No osseous erosive changes or periosteal reaction is present. Visualized soft tissues are unremarkable. RAD/HIP, UNI W/ Pelvis 2-3 Views IMPRESSION: No acute fracture. Reading Location: [facility]
[2024-05-03 18:01] LABS: Absolute Lymphocyte Count 0.59 X10^3/uL (0.83-4.51); Absolute Neutrophil Count 10.6 X10^3/uL (2.0-7.7); Basophil# 0.04 X10^3/uL; Basophil% 0.3 % (0-1); Eosinophil# 0.08 X10^3/uL; Eosinophils% 0.7 % (0-5); Hematocrit 32.3 % (37-47); Hemoglobin 10.1 g/dL (12.0-15.0); Lymphocyte # 0.59 X10^3/ul (0.83-4.51); Lymphocyte % 4.8 % (19-41); Mean Corp Hgb Conc 31.3 g/dL (32-36); Mean Corpuscular Hgb 32.1 pg (27.0-32.0); Mean Corpuscular Volume 102.5 fL (81-99); Mean Platelet Vol. 9.4 fl (6.2-12.0); Monocyte# 0.81 X10^3/uL; Monocyte% 6.6 % (0-10); NRBC Flagged by Analyzer 0 % (0-5); Neutrophil # 10.61 X10^3/uL (2.7-7.7); Neutrophil % 86.9 % (47-70); POSITIVE DIFFERENTIAL YES; Platelet Count 312 K/mm3 (150-450); RBC Distribution Width CV 13.9 % (11.6-14.6); RBC Distribution Width SD 51.9 fl (35.1-43.9); Red Blood Count 3.15 M/mm3 (4.2-5.4); White Blood Count 12.2 K/mm3 (4.4-11.0)
[2024-05-03 18:10] LABS: Partial Thromboplast Time 30.4 Seconds (24.1-36.2); Prothrombin Time (Protime)PT. 13.8 SECONDS (11.7-14.9)
[2024-05-03 18:45] LABS: Squamous Epithelial Cells - UA 0 SEEN /hpf (5-10); White Blood Cells 0 SEEN /hpf (0-5)
[2024-05-03 18:46] LABS: Color, Urine Yellow (Yellow); Glucose, Dipstick Normal (Normal); Ketone-Dipstick Negative (Negative); Leukocyte Esterase-Dipstick 25 /ul (Negative); Nitrite-Dipstick Negative (Negative); Occult Blood-Urine Negative /ul (Negative); Protein-Dipstick 15 mg/dl (Negative); Urine Bilirubin Dipstick Negative (Negative); Urine Clarity Clear (Clear); Urine Urobilinogen 8 mg/dl (Normal)
[2024-05-03 19:04] LABS: Bacteria RARE /hpf (None Seen); Hyaline Cast 0-5 SEEN /lpf (0-5); Mucous, Urine 1+ /hpf (<or=2+); Red Blood Cells-Urine 0 SEEN /hpf (0-5)
[2024-05-03 19:28] LABS: AST(SGOT) 38 U/L (<=31); Alanine Aminotransfer ALT/SGPT 19 U/L (<=34); Albumin, Serum 3.3 g/dL (3.4-4.8); Alkaline Phosphatase 158 U/L (35-104); BUN 12 mg/dL (4-19); EST Glomerular Filtration Rate 80 (>60); Estimated Creatinine Clearance 74.33 ml/min (50-250); Globulin 3.4 g/dL (2.2-4.2); Glucose 130 mg/dL (70-99); Protein, Total 6.7 g/dL (5.9-8.4); Total Bilirubin 0.45 mg/dL (0.00-1.30)
[2024-05-03 19:29] LABS: Alcohol, Blood (Medical)-Serum < 10.1 mg/dL (<=10.0)
[2024-05-03 19:53] LABS: Anion Gap 16 (5-15); Calcium,Total 8.7 mg/dL (7.6-11.0); Carbon Dioxide 26.4 mmol/L (21.0-32.0); Chloride 96 mmol/L (98-108); Potassium 4.2 mmol/L (3.3-5.1); Sodium Level 138 mmol/L (133-145)
== END 2024-05-03 21:00 | disposition home or self-care (01) ==
PROVIDERS: Emergency Provider Emergency Medicine; PCP Family Medicine; Visit Provider Emergency Medicine
DX: S16.1XXA Strain of muscle, fascia and tendon at neck level, initial encounter (principal); I11.0 Hypertensive heart disease with heart failure; I50.9 Heart failure, unspecified; J44.9 Chronic obstructive pulmonary disease, unspecified; R59.0 Localized enlarged lymph nodes; R26.2 Difficulty in walking, not elsewhere classified; E87.20 Acidosis, unspecified; S40.021A Contusion of right upper arm, initial encounter; S80.11XA Contusion of right lower leg, initial encounter; S20.219A Contusion of unspecified front wall of thorax, initial encounter; S30.1XXA Contusion of abdominal wall, initial encounter; M25.552 Pain in left hip; V43.61XA Car passenger injured in collision with sport utility vehicle in traffic accident, initial encounter; G47.33 Obstructive sleep apnea (adult) (pediatric); Z79.890 Hormone replacement therapy; Z79.899 Other long term (current) drug therapy
CPT/HCPCS: 51702; 71260; 72125; 73502; 73552; 74177; 80048; 80076; 81001; 82077; 82962; 85025; 85610; 85730; 93005; 96374; 96375; 96376; 99285; Q9967; A4216; J2405

== ENCOUNTER → 2024-06-29 | Outpatient (CLI) | payer MEDICARE, SELFPAY ==
[2024-06-29 12:39] LABS: Absolute Lymphocyte Count 0.43 X10^3/uL (0.83-4.51); Basophil# 0.02 X10^3/uL; Basophil% 0.2 % (0-1); Eosinophil# 0.02 X10^3/uL; Eosinophils% 0.2 % (0-5); Hematocrit 36.2 % (37-47); Hemoglobin 11.3 g/dL (12.0-15.0); Lymphocyte # 0.43 X10^3/ul (0.83-4.51); Mean Corp Hgb Conc 31.2 g/dL (32-36); Mean Corpuscular Hgb 30.8 pg (27.0-32.0); Mean Corpuscular Volume 98.6 fL (81-99); Mean Platelet Vol. 9.5 fl (6.2-12.0); Monocyte# 0.14 X10^3/uL; Monocyte% 1.6 % (0-10); NRBC Flagged by Analyzer 0 % (0-5); Neutrophil # 7.99 X10^3/uL (2.7-7.7); Neutrophil % 92.7 % (47-70); POSITIVE DIFFERENTIAL YES; Platelet Count 298 K/mm3 (150-450); RBC Distribution Width CV 13.1 % (11.6-14.6); RBC Distribution Width SD 47.3 fl (35.1-43.9); Red Blood Count 3.67 M/mm3 (4.2-5.4); White Blood Count 8.6 K/mm3 (4.4-11.0)
[2024-06-29 13:04] LABS: AST(SGOT) 25 U/L (<=31); Alanine Aminotransfer ALT/SGPT 10 U/L (<=34); Albumin, Serum 3.6 g/dL (3.4-4.8); Alkaline Phosphatase 144 U/L (35-104); Anion Gap 12 (5-15); BUN 9 mg/dL (4-19); BUN/Creat Ratio 13.3 RATIO (10-20); Calcium,Total 9.3 mg/dL (7.6-11.0); Carbon Dioxide 27.5 mmol/L (21.0-32.0); Chloride 95 mmol/L (98-108); EST Glomerular Filtration Rate 94 (>60); Globulin 3.7 g/dL (2.2-4.2); Glucose 135 mg/dL (70-99); Magnesium 2.1 mg/dL (1.5-2.2); Protein, Total 7.3 g/dL (5.9-8.4); Sodium Level 135 mmol/L (133-145); Total Bilirubin 0.42 mg/dL (0.00-1.30)
[2024-07-01 13:46] LABS: Ferritin 349 ng/mL (22-378); Iron 63 ug/dL (50-170); Iron Binding Capacity,Total 253 ug/dL (250-450); Iron Binding Capacity,Unsat 190 ug/dL (228-428); Vitamin B12 603 pg/mL (180-914)
== END | disposition home or self-care (01) ==
LOC: MFPLAB 10:21
PROVIDERS: PCP Family Medicine; Referring Provider Family Medicine; Visit Provider Family Medicine
DX: D64.9 Anemia, unspecified (principal); R19.7 Diarrhea, unspecified
CPT/HCPCS: 36415; 80053; 82607; 82705; 82728; 83540; 83550; 83630; 83735; 85025; 87177; 87209; 87493

== ENCOUNTER 2024-07-04 12:24 | Inpatient (IN) | payer MEDICARE, SELFPAY ==
[2024-07-04] VITALS (18 sets, daily range): BP systolic 74–112; BP diastolic 38–76; PULSE 76–92; RESP 15–27; TEMP 35.9–37.6; O2SAT 94–100; BMI 37.8; BMI 37.5
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
--- NOTE | 2024-07-04 12:57 | EKG12_ITS ---
Test Reason : Blood Pressure : */* mmHG Vent. Rate : 86 BPM Atrial Rate : 86 BPM P-R Int : 154 ms QRS Dur : 106 ms QT Int : 418 ms P-R-T Axes : 56 -41 11 degrees QTcB Int : 500 ms Normal sinus rhythm Left axis deviation Pulmonary disease pattern Abnormal ECG Confirmed by Deandre De La Rosa ([id number]), editor managing director SARA FORREST ([id number]) on 07/09/2024 12:08:45 PM Referred By: ZANE/CLARA Confirmed By: Deandre De La Rosa
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
[2024-07-04 13:17] LABS: Bacteria 0 SEEN /hpf (None Seen); Mucous, Urine 0 SEEN /hpf (<or=2+); Red Blood Cells-Urine 0 SEEN /hpf (0-5); Squamous Epithelial Cells - UA 0 SEEN /hpf (5-10); White Blood Cells 0 SEEN /hpf (0-5)
[2024-07-04 13:20] LABS: Absolute Lymphocyte Count 1.45 X10^3/uL (0.83-4.51); Absolute Neutrophil Count 14.5 X10^3/uL (2.0-7.7); Basophil# 0.07 X10^3/uL; Basophil% 0.4 % (0-1); Eosinophil# 0.12 X10^3/uL; Eosinophils% 0.7 % (0-5); Hematocrit 36.2 % (37-47); Hemoglobin 11.9 g/dL (12.0-15.0); Lymphocyte # 1.45 X10^3/ul (0.83-4.51); Lymphocyte % 8.3 % (19-41); Mean Corp Hgb Conc 32.9 g/dL (32-36); Mean Corpuscular Hgb 31.4 pg (27.0-32.0); Mean Corpuscular Volume 95.5 fL (81-99); Monocyte# 1.32 X10^3/uL; Monocyte% 7.5 % (0-10); NRBC Flagged by Analyzer 0 % (0-5); Neutrophil # 14.46 X10^3/uL (2.7-7.7); Neutrophil % 82.3 % (47-70); Platelet Count 341 K/mm3 (150-450); RBC Distribution Width CV 13.2 % (11.6-14.6); RBC Distribution Width SD 46.5 fl (35.1-43.9); Red Blood Count 3.79 M/mm3 (4.2-5.4); White Blood Count 17.6 K/mm3 (4.4-11.0)
[2024-07-04 13:34] LABS: Prothrombin Time (Protime)PT. 13.7 SECONDS (11.7-14.9)
[2024-07-04 13:35] LABS: Partial Thromboplast Time 31.7 Seconds (24.1-36.2)
--- NOTE | 2024-07-04 13:39 | CT_ITS ---
PROCEDURE: SPINE CERVICAL WITHOUT CONTRAS 07/04/2024 REASON FOR EXAM: FALL TECHNIQUE: Cervical spine CT without contrast. Coronal and Sagittal reconstruction series were provided. One or more dose reduction techniques were used (e.g., Automated exposure control, adjustment of the mA and/or kV according to patient size, use of iterative reconstruction technique COMPARISON: 05/03/2024 FINDINGS: Alignment: 2 mm of retrolisthesis of C4 on C5.. Mild levoscoliosis centered at C4. Vertebrae: No acute fracture. Soft Tissues: No prevertebral soft tissue swelling. Other: Pneumonia or scarring in the right upper lobe. CT/Spine Cervical without Contras IMPRESSION: NO ACUTE CERVICAL FRACTURE. DEGENERATIVE CHANGES. Reading Location: [id number]
[2024-07-04 13:40] LABS: Color, Urine Yellow (Yellow); Glucose, Dipstick Normal (Normal); Ketone-Dipstick Negative (Negative); Leukocyte Esterase-Dipstick Negative /ul (Negative); Nitrite-Dipstick Negative (Negative); Occult Blood-Urine Negative /ul (Negative); Urine Bilirubin Dipstick Negative (Negative); Urine Clarity Clear (Clear); Urine Urobilinogen Normal (Normal)
--- NOTE | 2024-07-04 13:40 | RAD_ITS ---
PROCEDURE: CHEST PA AND LATERAL 07/04/2024 REASON FOR EXAM: CONFUSED TECHNIQUE: Frontal and lateral views of the chest. COMPARISON: 02/23/2024 FINDINGS: Hardware: None Heart: The heart size is normal. Mediastinum: There are atherosclerotic calcifications of the thoracic aorta. Lungs: No change in scarring and volume loss of the right lung with elevation of the right hemidiaphragm. Bones: The bones are unremarkable. RAD/Chest PA and Lateral IMPRESSION: NO SIGNIFICANT CHANGE SINCE THE PRIOR EXAM. Reading Location: [id number]
[2024-07-04] MEDS: 0.9% Normal Saline (500mL Bag) 500 ML 999 ML IV ×2 (13:53→16:24)
[2024-07-04 13:58] LABS: Protein, Urine (Random) < 6.0 mg/dL (0.0-12.0)
[2024-07-04 13:59] LABS: Lactic Acid 1.2 mmol/L (0.0-2.0)
[2024-07-04 14:01] LABS: ALB/GLOB Ratio 0.9 RATIO (0.9-2.4); AST(SGOT) 33 U/L (<=31); Alanine Aminotransfer ALT/SGPT 13 U/L (<=34); Albumin, Serum 3.5 g/dL (3.4-4.8); Alkaline Phosphatase 140 U/L (35-104); Anion Gap 15 (5-15); BUN 12 mg/dL (4-19); BUN/Creat Ratio 10.4 RATIO (10-20); Calcium,Total 8.9 mg/dL (7.6-11.0); Carbon Dioxide 27.7 mmol/L (21.0-32.0); Chloride 89 mmol/L (98-108); Creatinine, Serum 1.12 mg/dL (0.70-1.20); EST Glomerular Filtration Rate 53 (>60); Estimated Creatinine Clearance 46.77 ml/min (50-250); Globulin 3.8 g/dL (2.2-4.2); Glucose 101 mg/dL (70-99); Potassium 4.3 mmol/L (3.3-5.1); Protein, Total 7.3 g/dL (5.9-8.4); Sodium Level 132 mmol/L (133-145); Total Bilirubin 0.62 mg/dL (0.00-1.30)
--- NOTE | 2024-07-04 14:50 | CM.ED ---
Social Work Date of referral: 07/04/2024 Reason for referral: Fall Referred by: Social Work identification Patient provided consent to social work visit. At patient's bedside was patient's son, Chuck and patient's [id number] Joanne (GANESH; Kell). Currently living in the home are patient, patient's , patient's 2 GANESH's and Kell's son. Patient stated she was getting into the car to go to [place] and fell. Patient stated she was on the ground for some time until she was discovered by her . Patient stated she was not in pain and stated it felt nice and peaceful lying outside. Kell is the current home health aid for patient's other GANESH and is employed through [employer]. Patient has a rollator, wheelchair ramp and a wheelchair. painting worker verbally reviewed fall prevention education and safety and also provided patient with written education as well which patient verbalized she understood. painting worker also provided education/resources to member in regards to [facility], ([facility]). Should patient meet level of care, patient would be eligible to have her insurance pay for an emergency response device with GPS and fall detection. Patient stated her legs have become more weak. No other needs or support have been identified at this time. Terri Toro, METAL BONDING ASSEMBLER, ZOOLOGY PROFESSOR
[2024-07-04 17:05] LABS: Troponin T High Sensitivity 32 ng/L (<=14)
--- NOTE | 2024-07-04 17:19 | PCM.HP.STD ---
HPI - General General Date of Admission: 07/04/24 HPI Narrative NEHAL ELIZONDO, is a 69 F who presents to the hospital with altered mental status, confusion, and a fall. She was on her way to [place] when she fell in her yard, she thinks she slipped and does not think that she passed out. She was found about an hour later and brought into the hospital. She does have a leukocytosis to 17 and the only etiology is diarrhea that she says that she has been having 4 episodes of liquid stool daily for the last 2 weeks. She denies any new medications, she does have well water but she only drinks diet Dr. Dobson but she does use well water in her coffee and for cooking. Chest x-ray was unremarkable, and urine analysis was negative for UTI. [facility] Medical History Sarcoidosis of lung Osteoporosis Pulmonary embolism Congestive heart failure (CHF) Wears partial dentures Wears glasses Post-menopausal Cancer Alcohol use Glucose intolerance Thyroid disease Ambulates with cane Arthritis DVT (deep venous thrombosis) Easy bruising Excessive bleeding Migraine headache Injury of head and neck History of IBS Non-smoker CPAP (continuous positive airway pressure) dependence Sleep apnea Leg cramps History of pain when walking History of edema History of echocardiogram Cardiology follow-up encounter History of irregular heartbeat Mitral valve annular calcification Varicose veins of both lower extremities Obesity COVID-19 virus detected (12/02/22) Hiatal hernia Osteoarthritis Restless leg syndrome Chronic pain Arthritis, rheumatoid HARRISON on CPAP Rheumatoid arthritis Anemia Hypothyroid Malignant neoplasm of breast Other and unspecified diseases of upper respiratory tract History of breast cancer Hemoptysis Home Medications ?Medication ?Instructions ?Recorded ?Last Taken ?Type hydroxychloroquine 200 mg tablet 200 mg PO DAILYCM immunosuppresent 07/05/15 07/04/24 History ferrous sulfate 325 mg (65 mg 325 mg PO DAILY 05/28/17 07/04/24 History iron) tablet multivitamin (Multiple Vitamins 1 tab PO DAILY dietary 05/28/17 07/04/24 History tablet) clobetasol 0.05 % topical ointment 1 applic topical DAILY PRN SKIN 05/17/20 Unknown History CONDITION levothyroxine 75 mcg tablet 75 mcg PO DAILY thyroid 05/17/20 07/04/24 History lorazepam 1 mg tablet 0.5 mg PO DAILY PRN Anxiety 05/17/20 07/04/24 History methotrexate sodium 2.5 mg tablet 15 mg PO SHARP immunosuppresent 05/17/20 07/04/24 History nortriptyline 25 mg capsule 25 mg PO QHS nerve pain 07/08/22 07/03/24 History ondansetron HCl 4 mg tablet 4 mg PO Q8H PRN nausea and vomiting 07/08/22 Unknown History ikhesic-bogshvvxc-cssy 333 mg-133 4 tab PO DAILY SUPPLEMENT 09/09/22 07/03/24 History mg-5 mg tablet Nebulizer machine #1 ea 12/02/22 Unknown Rx duloxetine 30 mg capsule,delayed 30 mg PO DAILY depression 01/14/23 07/04/24 History release folic acid 1 mg tablet 1 mg PO DAILY dietary supplement 01/14/23 07/04/24 History hydrocodone-acetaminophen 5-325mg 1 tab PO TID PRN pain 01/14/23 07/04/24 History 5mg-325mg gabapentin 300 mg capsule 300 mg PO TIDCM pain 04/22/23 07/04/24 History metoprolol tartrate 25 mg tablet 25 mg PO BID blood pressure #60 04/22/23 07/04/24 Rx tabs furosemide 40 mg tablet 40 mg PO DAILY diuretic #90 tabs 11/19/23 07/04/24 Rx potassium chloride 20 mEq 20 meq PO DAILYCM PRN hypokalemia 02/23/24 Unknown History tablet,extended release(part/cryst) (Klor-Con M) cyclobenzaprine 10 mg tablet 10 mg PO TID PRN muscle spasm 07/04/24 07/04/24 History vitamin B complex (Complex B-100 1 tab PO DAILY 07/04/24 07/04/24 History tablet,extended release) Allergy/AdvReac Type Severity Reaction Status Date / Time doxycycline Allergy Mild Nausea Verified 07/04/24 12:25 enalaprilat (From Vasotec) Allergy Mild Other - Verified 07/04/24 12:25 lightheadedness codeine Allergy Unknown Verified 07/04/24 12:25 midazolam HCl (From Versed) Allergy Anaphylaxis Verified 07/04/24 12:25 morphine AdvReac Nausea/Vom/ Verified 07/04/24 12:25 Diarrhea NSAIDS (Non-Steroidal AdvReac Other Verified 07/04/24 12:25 Anti-Inflamma Family History Mother Diabetes Pancreatic cancer Brother Diabetes Hypertension Seasonal allergies Melanoma Brain cancer Tongue cancer Father Colon cancer Parkinson disease Sister Hypertension Seasonal allergies Uterine cancer Lung cancer Liver cancer Surgical History History of cholecystectomy Hx of cataract surgery History of carpal tunnel release of both wrists Hx of hand surgery History of foot operation Hx of mastectomy (2006) Port-a-cath in place H/O thumb surgery History of appendectomy History of carpal tunnel surgery Hx of cholecystectomy H/O ligation of vein History of modified radical mastectomy H/O vaginal hysterectomy H/O hernia repair History of gastric bypass Social History Smoking Status: Never smoker alcohol intake: current alcohol intake frequency: holidays/special occasions only substance use type: does not use caffeine: Yes Type: carbonated beverages Number of servings: 3 and coffee Number of servings: 2 ROS Constitutional Constitutional: Reports weakness; Denies chills, fatigue, fever(s) or malaise Eyes Eyes: Denies blurry vision ENT HEENT: Denies headache(s) or nasal discharge Cardiovascular Cardiovascular: Denies chest pain, dyspnea on exertion or syncope Respiratory/Chest Respiratory/Chest: Denies cough, shortness of breath at rest or shortness of breath with exertion Gastrointestinal Gastrointestinal: Reports diarrhea; Denies constipation, nausea or vomiting Genitourinary Genitourinary: Denies dysuria Neurologic Neurologic: Denies focal weakness, numbness or tremor(s) Psychiatric Psychiatric: Denies anxiety or depression Vital Signs Vital Signs Vital Signs: 07/04/24 12:24 07/04/24 12:27 07/04/24 13:13 Temperature 97.2 F L 96.7 F L Temperature Source Oral Pulse Rate 80 Respiratory Rate 18 Respiratory Effort Normal Respiratory Depth Normal Respiratory Pattern Normal Blood Pressure 86/42 L Blood Pressure Mean 56 Pulse Ox 94 Oxygen Delivery Method Room Air Room Air Nasal Cannula Oxygen Flow Rate (L/min) 2 07/04/24 13:14 07/04/24 13:29 07/04/24 14:00 Temperature 99.6 F H Temperature Source Core Pulse Rate 87 91 Respiratory Rate 19 H 17 Respiratory Effort Respiratory Depth Respiratory Pattern Blood Pressure 74/38 L 87/58 L Blood Pressure Mean 50 67 Pulse Ox 100 99 95 Oxygen Delivery Method Nasal Cannula Room Air Nasal Cannula Oxygen Flow Rate (L/min) 4 2 07/04/24 14:40 07/04/24 14:55 07/04/24 15:00 Temperature 99 F 99.2 F H Temperature Source Core Core Pulse Rate 87 86 85 Respiratory Rate 18 21 H 18 Respiratory Effort Respiratory Depth Respiratory Pattern Blood Pressure 102/67 112/60 112/60 Blood Pressure Mean 78 77 77 Pulse Ox 97 100 99 Oxygen Delivery Method Nasal Cannula Nasal Cannula Nasal Cannula Oxygen Flow Rate (L/min) 2 2 2 07/04/24 15:10 07/04/24 15:25 07/04/24 15:40 Temperature 98.9 F 99 F 99 F Temperature Source Core Core Core Pulse Rate 84 85 83 Respiratory Rate 17 16 19 H Respiratory Effort Respiratory Depth Respiratory Pattern Blood Pressure 88/65 L 99/65 87/76 L Blood Pressure Mean 72 76 79 Pulse Ox 97 98 100 Oxygen Delivery Method Nasal Cannula Nasal Cannula Nasal Cannula Oxygen Flow Rate (L/min) 2 2 2 07/04/24 16:00 07/04/24 16:23 07/04/24 17:00 Temperature 99 F Temperature Source Pulse Rate 82 80 80 Respiratory Rate 27 H 22 H 16 Respiratory Effort Respiratory Depth Respiratory Pattern Blood Pressure 101/49 L 101/49 L 95/60 Blood Pressure Mean 66 66 71 Pulse Ox 100 96 100 Oxygen Delivery Method Nasal Cannula Nasal Cannula Oxygen Flow Rate (L/min) 2 2 07/04/24 17:13 Temperature Temperature Source Pulse Rate 85 Respiratory Rate 16 Respiratory Effort Respiratory Depth Respiratory Pattern Blood Pressure 109/66 Blood Pressure Mean 80 Pulse Ox 99 Oxygen Delivery Method Nasal Cannula Oxygen Flow Rate (L/min) 2 Weight Weight: 194 lb 0.108 oz Body Mass Index (BMI) 37.8 Physical Exam Narrative General: Alert, Oriented x3, Cooperative, No apparent distress HEENT: Atraumatic, PERRLA, EOMI, Normocephalic Oral: Moist Mucosa Neck: Supple, No JVD Lungs: Diminished, Normal air movement, No rhonchi, No wheeze, No rales Cardiovascular: Regular rate, Regular Rhythm, Normal S1, Normal S2, No murmurs Abdomen: Soft, minimally tender, Non-Distended, No Hepato-splenomegaly Extremities: No edema, Capillary Refill Less than 3 Seconds Skin: No rashes, No breakdown Musculoskeletal: No Tenderness to Palpation of Joints or Extremities Neurological: No focal neurological deficits, Motor Exam 5/5 strength throughout, Sensory exam intact to light touch and pain Psych/Mental Status: Normal Affect, Appropriate Results Lab / Micro Data 07/04/24 13:08 07/04/24 13:08 Labs: Laboratory Results - last 24 hr 07/04/24 13:08: WBC 17.6 H, RBC 3.79 L, Hgb 11.9 L, Hct 36.2 L, MCV 95.5, MCH 31.4, MCHC 32.9, RDW Std Deviation 46.5 H, RDW Coeff of Edilma 13.2, Plt Count 341, MPV 9.0, Immature Gran % (Auto) 0.800, Neut % (Auto) 82.3 H, Lymph % (Auto) 8.3 L, [place] % (Auto) 7.5, Eos % (Auto) 0.7, Baso % (Auto) 0.4, Absolute Neuts (auto) 14.5 H, Absolute Lymphs (auto) 1.45, Nucleated RBC % 0, PT 13.7, INR 1.0, APTT 31.7, Sodium 132 L, Potassium 4.3, Chloride 89 L, Carbon Dioxide 27.7, Anion Gap 15, BUN 12, Creatinine 1.12, Estim Creat Clear Calc 46.77 L, Est GFR (MDRD) Non-Af 53 L, BUN/Creatinine Ratio 10.4, Glucose 101 H, Calcium 8.9, Total Bilirubin 0.62, AST 33 H, ALT 13, Alkaline Phosphatase 140 H, Troponin T High Sens 32 H, Total Protein 7.3, Albumin 3.5, Globulin 3.8, Albumin/Globulin Ratio 0.9, Urine Color Yellow, Urine Clarity Clear, Urine pH 6.0, Ur Specific [place] 1.010, Urine Protein TNP, Urine Glucose (UA) Normal, Urine Ketones Negative, Urine Occult Blood Negative, Urine Nitrite Negative, Urine Bilirubin Negative, Urine Urobilinogen Normal, Ur Leukocyte Esterase Negative, Urine RBC 0 SEEN, Urine WBC 0 SEEN, Ur Squamous Epith Cells 0 SEEN, Urine Bacteria 0 SEEN, Urine Mucus 0 SEEN, U Random Total Protein < 6.0 07/04/24 13:20: Lactic Acid 1.2 Micro: Microbiology 07/04/24 13:25 Mucosa - Nose SARS-CoV-2, Influenza & RSV (PCR) - Final Rhythm Strip Rhythm Strip: Sinus Rhythm Rate: 86 Ectopy: None Imaging Radiology Impression Brain CT 07/04/24 12:56 IMPRESSION: 1. No acute intracranial finding. 2. No acute calvarial fracture or scalp hematoma. Reading Location: [facility] Cervical Spine CT 07/04/24 13:39 IMPRESSION: NO ACUTE CERVICAL FRACTURE. DEGENERATIVE CHANGES. Reading Location: [facility] Chest X-Ray 07/04/24 13:40 IMPRESSION: NO SIGNIFICANT CHANGE SINCE THE PRIOR EXAM. Reading Location: [facility] Assessment & Plan Assessment/Plan (1) Leukocytosis: (2) Acute confusion: PLAN: Plan 1. Altered mental status and confusion with episodic hypotension and diarrhea ? She does have a leukocytosis to 17,000, unclear etiology ? Will obtain stool studies as other infectious workups are unremarkable ? She is on a baseline of 4 L nasal cannula and she is not requiring increased oxygen ? Will provide gentle hydration secondary to her history of CHF 2. Chronic diastolic CHF/essential HTN ? Echo on 02/24/2024 with an EF of 60% ? Will hold her Lasix secondary to the need for some IV fluids given her diarrhea ? Will hold her metoprolol as her blood pressures were little bit soft initially on admission ? Will monitor make adjustments as necessary 3. Rheumatoid arthritis ? Continue with her home medications ? Stable 4. Iron deficiency anemia ? Stable ? Continue with her iron supplementation 5. Anxiety/depression ? Stable ? Continue with her Cymbalta as well as her nortriptyline 6. Hypothyroidism ? Stable ? Continue with Synthroid DVT: Lovenox 75 minutes was spent on direct patient care, including documentation as well as chart review and collaboration with colleagues Charges/Coding Visit Charges Inpatient E&M: 64627 Init Hosp L3
[2024-07-04] MEDS: 0.9% Normal Saline (1000mL) 1,000 ML 100 ML IV (18:49)
[2024-07-04] MEDS: 0.9% Saline Lock 10 ML Syringe IV (18:49)
[2024-07-04] MEDS: Nortriptyline 25 MG Capsule PO (22:31)
[2024-07-05] MEDS: oxyCODONE 5 MG Tablet PO ×3 (04:57→20:17)
[2024-07-05] MEDS: 0.9% Normal Saline (1000mL) 1,000 ML 100 ML IV (04:58)
[2024-07-05 05:00] VITALS: BP 123/67; PULSE 93; RESP 15; TEMP 36.6; O2SAT 100
[2024-07-05] MEDS: Levothyroxine 75 MCG Tablet PO (06:42)
[2024-07-05 08:03] LABS: Absolute Lymphocyte Count 1.18 X10^3/uL (0.83-4.51); Absolute Neutrophil Count 7.9 X10^3/uL (2.0-7.7); Basophil# 0.05 X10^3/uL; Basophil% 0.5 % (0-1); Eosinophil# 0.27 X10^3/uL; Eosinophils% 2.6 % (0-5); Hematocrit 29.9 % (37-47); Hemoglobin 9.7 g/dL (12.0-15.0); Lymphocyte # 1.18 X10^3/ul (0.83-4.51); Lymphocyte % 11.5 % (19-41); Mean Corp Hgb Conc 32.4 g/dL (32-36); Mean Corpuscular Hgb 31.2 pg (27.0-32.0); Mean Corpuscular Volume 96.1 fL (81-99); Mean Platelet Vol. 8.8 fl (6.2-12.0); Monocyte# 0.83 X10^3/uL; Monocyte% 8.1 % (0-10); NRBC Flagged by Analyzer 0 % (0-5); Neutrophil % 76.7 % (47-70); Platelet Count 272 K/mm3 (150-450); RBC Distribution Width CV 13.3 % (11.6-14.6); RBC Distribution Width SD 47.1 fl (35.1-43.9); Red Blood Count 3.11 M/mm3 (4.2-5.4); White Blood Count 10.3 K/mm3 (4.4-11.0)
[2024-07-05 08:30] VITALS: BP 102/56; PULSE 97; RESP 19; TEMP 36.4; O2SAT 99
[2024-07-05] MEDS: Gabapentin 300 MG Capsule PO ×3 (08:43→17:44)
[2024-07-05] MEDS: Hydroxychloroquine 200 MG Tablet PO (08:43)
[2024-07-05] MEDS: Enoxaparin 40 MG/0.4 ML Syringe SC (08:43)
[2024-07-05] MEDS: Folic Acid 1 MG Tablet PO (08:43)
[2024-07-05] MEDS: DULoxetine Hcl 30 MG Capsule PO (08:43)
[2024-07-05 09:05] LABS: Anion Gap 12 (5-15); BUN 14 mg/dL (4-19); Calcium,Total 8.1 mg/dL (7.6-11.0); Carbon Dioxide 26.5 mmol/L (21.0-32.0); Chloride 94 mmol/L (98-108); Creatinine, Serum 0.85 mg/dL (0.70-1.20); EST Glomerular Filtration Rate 74 (>60); Estimated Creatinine Clearance 61.27 ml/min (50-250); Glucose 95 mg/dL (70-99); Potassium 3.6 mmol/L (3.3-5.1); Sodium Level 132 mmol/L (133-145)
--- NOTE | 2024-07-05 10:09 | CASEMGMT ---
Discharge Planning Pt states that she has LW and HC POA. She will ask her to bring in. SW updated. Risa Thompson DC Planning Asst.
--- NOTE | 2024-07-05 10:41 | PCM.PN.HOSP ---
Reason for Visit Reason for Visit: Diagnoses Elevated white blood cell count, unspecified (07/04/24) Disorientation, unspecified (07/04/24) Objective Data Objective Data Vital Signs: Vital Signs Temp Pulse Resp BP Pulse Ox O2 Del Method O2 Flow Rate 97.5 F L 97 19 H 102/56 L 99 Nasal Cannula 4 07/05/24 08:30 07/05/24 08:30 07/05/24 08:30 07/05/24 08:30 07/05/24 08:30 07/05/24 10:20 07/05/24 10:20 Oxygen Flow Rate (L/min) 4 Oxygen Delivery Method Nasal Cannula Weight: 192 lb 0.108 oz Body Mass Index (BMI) 37.5 Intake & Output: Intake and Output for Last 24 Hours 07/03/24 07/04/24 07/05/24 23:59 23:59 23:59 Intake Total 1200 / 1200 1200 / 1200 Output Total 450 / 450 400 / 400 Balance 750 / 750 800 / 800 Lab / Micro Data 07/05/24 07:34 07/05/24 07:34 Labs: Laboratory Results - last 24 hr 07/04/24 13:08: WBC 17.6 H, RBC 3.79 L, Hgb 11.9 L, Hct 36.2 L, MCV 95.5, MCH 31.4, MCHC 32.9, RDW Std Deviation 46.5 H, RDW Coeff of Edilma 13.2, Plt Count 341, MPV 9.0, Immature Gran % (Auto) 0.800, Neut % (Auto) 82.3 H, Lymph % (Auto) 8.3 L, [place] % (Auto) 7.5, Eos % (Auto) 0.7, Baso % (Auto) 0.4, Absolute Neuts (auto) 14.5 H, Absolute Lymphs (auto) 1.45, Nucleated RBC % 0, PT 13.7, INR 1.0, APTT 31.7, Sodium 132 L, Potassium 4.3, Chloride 89 L, Carbon Dioxide 27.7, Anion Gap 15, BUN 12, Creatinine 1.12, Estim Creat Clear Calc 46.77 L, Est GFR (MDRD) Non-Af 53 L, BUN/Creatinine Ratio 10.4, Glucose 101 H, Calcium 8.9, Total Bilirubin 0.62, AST 33 H, ALT 13, Alkaline Phosphatase 140 H, Troponin T High Sens 32 H, Total Protein 7.3, Albumin 3.5, Globulin 3.8, Albumin/Globulin Ratio 0.9, Urine Color Yellow, Urine Clarity Clear, Urine pH 6.0, Ur Specific [place] 1.010, Urine Protein TNP, Urine Glucose (UA) Normal, Urine Ketones Negative, Urine Occult Blood Negative, Urine Nitrite Negative, Urine Bilirubin Negative, Urine Urobilinogen Normal, Ur Leukocyte Esterase Negative, Urine RBC 0 SEEN, Urine WBC 0 SEEN, Ur Squamous Epith Cells 0 SEEN, Urine Bacteria 0 SEEN, Urine Mucus 0 SEEN, U Random Total Protein < 6.0 07/04/24 13:20: Lactic Acid 1.2 07/05/24 07:34: WBC 10.3, RBC 3.11 L, Hgb 9.7 L, Hct 29.9 L, MCV 96.1, MCH 31.2, MCHC 32.4, RDW Std Deviation 47.1 H, RDW Coeff of Edilma 13.3, Plt Count 272, MPV 8.8, Immature Gran % (Auto) 0.600, Neut % (Auto) 76.7 H, Lymph % (Auto) 11.5 L, [place] % (Auto) 8.1, Eos % (Auto) 2.6, Baso % (Auto) 0.5, Absolute Neuts (auto) 7.9 H, Absolute Lymphs (auto) 1.18, Nucleated RBC % 0, Sodium 132 L, Potassium 3.6, Chloride 94 L, Carbon Dioxide 26.5, Anion Gap 12, BUN 14, Creatinine 0.85, Estim Creat Clear Calc 61.27, Est GFR (MDRD) Non-Af 74, BUN/Creatinine Ratio 16.0, Glucose 95, Calcium 8.1 Micro: Microbiology 07/04/24 13:25 Mucosa - Nose SARS-CoV-2, Influenza & RSV (PCR) - Final Radiography Diagnostic Testing: Radiology Impression Brain CT 07/04/24 12:56 IMPRESSION: 1. No acute intracranial finding. 2. No acute calvarial fracture or scalp hematoma. Reading Location: [facility] Cervical Spine CT 07/04/24 13:39 IMPRESSION: NO ACUTE CERVICAL FRACTURE. DEGENERATIVE CHANGES. Reading Location: [facility] Chest X-Ray 07/04/24 13:40 IMPRESSION: NO SIGNIFICANT CHANGE SINCE THE PRIOR EXAM. Reading Location: [facility] Rhythm Strip Rhythm Strip: Sinus Rhythm Rate: 86 Ectopy: None Physical Exam Narrative Seen and examined. Patient was admitted with confusion and fall on the buttock region on the wet grass. She also had diarrhea for 3 to 4 days. She took antibiotic amoxicillin for sinus infection about June 2024 She has a history of chronic lymphedema and varicose vein and had venous surgery. Chronically on 4 L of oxygen. Physical exam General: Alert, Oriented x3, Cooperative. BMI 37.5 kg/m?, morbid obesity HEENT: Atraumatic, PERRLA, EOMI, Normocephalic. Oral: No Gingival or Mucosal Lesions/ Ulcerations Neck: Supple, No JVD, Negative Carotid Bruits Chest wall/Lungs: Air entry diminished in bilateral lung bases. Bilateral wheezing Cardiovascular: Regular rate and rhythm, Normal S1,S2, No M/G/R Abdomen: Bowel Sounds Present, Soft, Non Tender, Non-Distended : No dysuria. No renal angle tenderness. No suprapubic tenderness. Extremities: 3+ bilateral LE chronic lymphedema, Capillary Refill Less than 3 Seconds Skin: No rashes, No breakdown Musculoskeletal: Degenerative arthritis of bilateral knees. No Tenderness to Palpation of Joints or Extremities. ROM restricted Neurological: Cranial nerves II-XII grossly intact, DTR 2+/4. Muscle strength 4/5 at knees and hip joints Psych/Mental Status: Flat affect. Assessment & Plan Assessment/Plan (1) Leukocytosis: (2) Acute confusion: PLAN: Plan 69-year-old female admitted after she fell on wet grass the driveway, probably she fell on her buttock. She has been confused for last several days. Recently had sinus infection on amoxicillin denies any chest or abdominal pain no nausea vomiting or dysuria. 1. Altered mental status and confusion with episodic hypotension and diarrhea: Her BP was low 88/65 and 95/60 in ED. ? She does have a leukocytosis to 17,000, unclear etiology. Stool studies have been ordered for C. difficile and enteric pathogen panel. ? She is on a baseline of 4 L nasal cannula and she is not requiring increased oxygen ?5/5: Her lungs have both crepitations therefore discontinue IV fluid. Bilateral lower extremity lymphedema. Bilateral Tello wrap bandage ordered. 2. Chronic diastolic CHF/essential HTN ? Echo on 02/24/2024 with an EF of 60% ?Continue holding Lasix and might resume from tomorrow. ?Resume low-dose metoprolol. 3. Rheumatoid arthritis ? Continue with her home medications 4. Iron deficiency anemia ? Continue with her iron supplementation 5. Anxiety/depression ? Continue with her Cymbalta as well as her nortriptyline 6. Hypothyroidism ? Continue with Synthroid DVT: Lovenox Charges/Coding Visit Charges Inpatient E&M: 18502 Subs Hosp L2
--- NOTE | 2024-07-05 12:17 | CASEMGMT ---
EVER DELANEY Assessment Face to Face with patient for initial transition planning/care coordination assessment. EVER DELANEY introduced self and role at [facility], pt voices understanding. Pt is A&Ox4 and is resting comfortably in bed and is calm. Care providers, pharmacy, and demographics verified. Admitting dx: Diarrhea LACE Strata: 3 PCP: Baldomero Wright Specialists: [facility], [facility], [facility], Basali (PM) Preferred Pharmacy: [facility] Insurance: [facility] A[facility] Prescription Benefit: Yes LNOK: Krystal (H), Chuck (Son) Living Arrangements: Pt lives with her , 2 [id number], and her GANESH's son in a 1.5 story homer with a FFSU and a ramp to enter ADLs/IADLs: Pt states that she is independent and that family can support as needed Transportation: Self, . denies concerns DME: Home oxygen through [employer]. Rip reports that the pt's current o2 order states 4L w/ exertion only. Pt states that she has a concentrator, portable tanks ( can bring in at [place]), and a pulse ox. Pt also states that she has a FWW, Rollator, W/C, IS, Shower chair, Cane, and raised Toilet seat. Medical alert resources provided d/t pt fall. HHC/SNF: Denies personal HH or SNF hx or needs. Pt has been to [facility] in the past for OP PT Pt?s goal: Home with OP Therapy Plan: Home with family support and OP tx. Follow for increased o2 demands and Rx. Pt denies the need for HHC. Pt states that she would prefer to go through [facility] again for OP PT and that she would like CM to set up the appt for anytime after 1100. Pt denies further questions or concerns at this time. Report given to VIMAL CURTIS CM. Deena Jameson RN, CM
--- NOTE | 2024-07-05 12:23 | RAD_ITS ---
PROCEDURE: CHEST 1 VIEW (PORTABLE), 07/05/2024 REASON FOR EXAM: SOB, PULM EDEMA TECHNIQUE: A single portable AP view of the chest was obtained. COMPARISON: 07/04/2024 FINDINGS: Heart: Partially obscured, grossly similar. Mediastinum: Partially obscured contours, grossly similar. Atherosclerosis. Similar contours including widening of the RIGHT paratracheal stripe Lungs/pleura: Similar volume loss on the RIGHT with slight rightward mediastinal shift and elevation of the RIGHT hemidiaphragm. Similar interstitial and airspace disease on the RIGHT, grossly unchanged to perhaps minimally increased from 11/10/2023 suggestive of a chronic interstitial abnormality, better depicted on recent CT 05/03/2024. no sizeable pleural effusion or definite pneumothorax. Bones: Suspect demineralization.. Lines and support devices: None. Other: Abdominal surgical clips additional surgical clips biopsy markers project over the RIGHT chest wall/breast. And/or. RAD/Chest 1 View (Portable) IMPRESSION: 1. Similar appearance of the chest, including chronic opacities and volume loss in the RIGHT lung better evaluated on recent CT 05/03/2024. 2. Similar mediastinal contours probably related to mild mediastinal lymphadeno tee as seen on recent CT, nonspecific and potentially reactive in the absence of known malignancy. Correlate with medica l history and follow-up as indicated. 3. Additional description as above. REASON FOR EXAM: Recommend clinical/oncologic Reading Location: [id number]
[2024-07-05] MEDS: Ferrous Sulfate 325 MG Tablet PO (12:34)
[2024-07-05] MEDS: Ondansetron 4 MG/2 ML Vial IV (13:22)
[2024-07-05] MEDS: 0.9% Saline Lock 10 ML Syringe IV (13:22)
--- NOTE | 2024-07-05 14:07 | CHAPLAIN ---
Type of Pastoral Visit _x__ Initial Visit ___ Follow-up Visit ___ On-call Visit ___ General Patient Visit ___ Spiritual Assessment ___ Family Conference ___ Bereavement ___ Rapid Response ___ Code Blue ___ Other (describe below) Pastoral Care Referral From _x__ Patient ___ Family ___ Nurse ___ Physician ___ Bell Staff ___ Racecar Driver ___ Other (describe below) Sacrament/Intervention _x__ Active listening ___ Anointing ___ Orthodoxy ___ Bereavement ___ Communion _x__ Marie exploration ___ _x__ Life review _x__ Prayer ___ Reconciliation ___ Sacrament of Sick _x__ Supportive presence ___ Wedding ___ Other (describe below) Pastoral Comments patient remembers this orthopedics pediatric physician from a previous admission; pt is willing to talk about her health situation and why she was admitted; pt has concerns for others too and acknowledges that her family has had significant losses in recent months; pt is connected to a marie community and has family in the area for support; pt requests a prayer for her healing and for the family;
[2024-07-05 16:00] VITALS: BP 104/62; PULSE 93; RESP 18; TEMP 36.7; O2SAT 96
[2024-07-05 20:12] VITALS: BP 112/69; PULSE 100; RESP 16; TEMP 36.8; O2SAT 100
[2024-07-05 20:17] VITALS: PULSE 100
[2024-07-05] MEDS: Nortriptyline 25 MG Capsule PO (20:17)
[2024-07-05] MEDS: Metoprolol Tartrate 25 MG Tablet PO (20:17)
[2024-07-05 20:24] VITALS: O2SAT 100
[2024-07-06] VITALS (7 sets, daily range): BP systolic 103–113; BP diastolic 47–58; PULSE 82–106; RESP 16–20; TEMP 36.5–37.1; O2SAT 93–100
[2024-07-06] MEDS: Levothyroxine 75 MCG Tablet PO (05:09)
[2024-07-06] MEDS: oxyCODONE 5 MG Tablet PO ×4 (05:11→21:50)
[2024-07-06] MEDS: Ondansetron 4 MG/2 ML Vial IV ×2 (08:59→17:30)
[2024-07-06] MEDS: Metoprolol Tartrate 25 MG Tablet PO ×2 (09:28→21:41)
[2024-07-06] MEDS: DULoxetine Hcl 30 MG Capsule PO (09:29)
[2024-07-06] MEDS: Folic Acid 1 MG Tablet PO (09:29)
[2024-07-06] MEDS: Hydroxychloroquine 200 MG Tablet PO (09:29)
[2024-07-06] MEDS: Furosemide 40 MG Tablet PO (09:29)
[2024-07-06] MEDS: Enoxaparin 40 MG/0.4 ML Syringe SC (09:30)
[2024-07-06] MEDS: Gabapentin 300 MG Capsule PO ×3 (09:30→17:31)
--- NOTE | 2024-07-06 10:37 | CASEMGMT ---
Requested nurse complete 6 clicks at her convenience as pt is requesting outpt therapy but not receiving therapy at [facility]. Pt admitted with fall.
--- NOTE | 2024-07-06 14:33 | PN.HOSP_ITS ---
Reason for Visit Reason for Visit: Diagnoses Elevated white blood cell count, unspecified (07/04/24) Disorientation, unspecified (07/04/24) Objective Data Objective Data Vital Signs: Vital Signs Temp Pulse Resp BP Pulse Ox O2 Del Method O2 Flow Rate 97.9 F 87 16 103/52 L 100 Nasal Cannula 4 07/06/24 09:30 07/06/24 09:30 07/06/24 09:30 07/06/24 09:30 07/06/24 09:30 07/06/24 10:31 07/06/24 09:30 Oxygen Flow Rate (L/min) 4 Oxygen Delivery Method Nasal Cannula Weight: 192 lb 0.108 oz Body Mass Index (BMI) 37.5 Intake & Output: Intake and Output for Last 24 Hours 07/04/24 07/05/24 07/06/24 23:59 23:59 23:59 Intake Total 1200 / 1200 2695 / 2695 1500 / 1500 Output Total 450 / 450 1290 / 1290 Balance 750 / 750 1405 / 1405 1500 / 1500 Lab / Micro Data 07/05/24 07:34 07/05/24 07:34 Micro: Microbiology 07/04/24 14:36 Blood Culture (Wb) - Anticubital Right Blood Culture - Preliminary No growth in 48 hours. 07/04/24 13:20 Blood Culture (Wb) - Chest Blood Culture - Preliminary No growth in 48 hours. 07/04/24 13:08 Urine, Catheterized Urine Culture - Final Culture exhibits no growth. 07/05/24 07:00 Stool C. difficile GDH Antigen & Toxins - Final 07/05/24 07:00 Stool Clostridioides difficile (PCR) - Final 07/04/24 13:25 Mucosa - Nose SARS-CoV-2, Influenza & RSV (PCR) - Final Radiography Diagnostic Testing: Radiology Impression Chest X-Ray 07/05/24 12:23 IMPRESSION: 1. Similar appearance of the chest, including chronic opacities and volume loss in the RIGHT lung better evaluated on recent CT 05/03/2024. 2. Similar mediastinal contours probably related to mild mediastinal lymphadenopathy as seen on recent CT, nonspecific and potentially reactive in the absence of known malignancy. Correlate with medical history and follow-up as indicated. 3. Additional description as above. REASON FOR EXAM: Recommend clinical/oncologic Reading Location: [facility] Rhythm Strip Rhythm Strip: Sinus Rhythm Rate: 86 Ectopy: None Physical Exam Narrative Seen and examined. Patient diarrhea is better now to semisolid just 1 time today. Patient was admitted with confusion and fall on the buttock region on the wet grass. She also had diarrhea for 3 to 4 days. She took antibiotic amoxicillin for sinus infection about June 2024 She has a history of chronic lymphedema and varicose vein and had venous surgery. Chronically on 4 L of oxygen. Physical exam General: Alert, Oriented x3, Cooperative. BMI 37.5 kg/m?, morbid obesity HEENT: Atraumatic, PERRLA, EOMI, Normocephalic. Oral: No Gingival or Mucosal Lesions/ Ulcerations Neck: Supple, No JVD, Negative Carotid Bruits Chest wall/Lungs: Air entry diminished in bilateral lung, right more than left. Right lung base inspiratory fine rales Cardiovascular: Regular rate and rhythm, Normal S1,S2, No M/G/R Abdomen: Bowel Sounds Present, Soft, Non Tender, Non-Distended : No dysuria. No renal angle tenderness. No suprapubic tenderness. Extremities: 3+ bilateral LE chronic lymphedema, Capillary Refill Less than 3 Seconds Skin: No rashes, No breakdown Musculoskeletal: Degenerative arthritis of bilateral knees. No Tenderness to Palpation of Joints or Extremities. ROM restricted Neurological: Cranial nerves II-XII grossly intact, DTR 2+/4. Muscle strength 4/5 at knees and hip joints Psych/Mental Status: Flat affect. Assessment & Plan Assessment/Plan (1) Leukocytosis: (2) Acute confusion: PLAN: Plan 69-year-old female admitted after she fell on wet grass the driveway, probably she fell on her buttock. She has been confused for last several days. Recently had sinus infection on amoxicillin denies any chest or abdominal pain no nausea vomiting or dysuria. 1. Altered mental status and confusion with episodic hypotension and diarrhea: Her BP was low 88/65 and 95/60 in ED. ? She does have a leukocytosis to 17,000, unclear etiology. Stool studies have been ordered for C. difficile and enteric pathogen panel. ? She is on a baseline of 4 L nasal cannula and she is not requiring increased oxygen ?5/5: Her lungs have both crepitations therefore discontinue IV fluid. Bilateral lower extremity lymphedema. Bilateral Tello wrap bandage ordered. 07/06: Has a right lung chronic interstitial fibrosis with cystic changes and scarring as reviewed in CT chest on 05/03/2024. Similar chest x-ray finding on 07/04 and 07/05. Her mental status has improved. BP 103/52. No fever. Diarrhea has improved. Enteric pituitary panel pending otherwise C. difficile negative. Blood culture negative for 48 hours. 2. Chronic diastolic CHF/essential HTN ? Echo on 02/24/2024 with an EF of 60% ?Continue holding Lasix and might resume from tomorrow. ?Resume low-dose metoprolol. 07/06: Lasix was resumed in the morning. On furosemide, metoprolol 25 twice daily, and potassium 3. Rheumatoid arthritis ? Continue with her home medications 4. Iron deficiency anemia ? Continue with her iron supplementation 5. Anxiety/depression ? Continue with her Cymbalta as well as her nortriptyline 6. Hypothyroidism ? Continue with Synthroid DVT: Lovenox Charges/Coding Visit Charges Inpatient E&M: 54672 Subs Hosp L2
[2024-07-06] MEDS: Potassium Chloride Oral Tablet 20 MEQ PO (14:57)
[2024-07-06] MEDS: Ferrous Sulfate 325 MG Tablet PO (14:57)
[2024-07-06] MEDS: Nortriptyline 25 MG Capsule PO (21:41)
[2024-07-06] MEDS: 0.9% Saline Lock 10 ML Syringe IV (21:41)
[2024-07-07] VITALS (8 sets, daily range): BP systolic 98–119; BP diastolic 55–69; PULSE 93–140; RESP 18–20; TEMP 36.9–37.5; O2SAT 95–100
[2024-07-07] MEDS: oxyCODONE 5 MG Tablet PO ×4 (02:44→23:30)
[2024-07-07] MEDS: Levothyroxine 75 MCG Tablet PO (06:09)
[2024-07-07 06:41] LABS: Absolute Lymphocyte Count 1.27 X10^3/uL (0.83-4.51); Absolute Neutrophil Count 6.6 X10^3/uL (2.0-7.7); Basophil# 0.06 X10^3/uL; Basophil% 0.7 % (0-1); Eosinophil# 0.32 X10^3/uL; Eosinophils% 3.5 % (0-5); Lymphocyte # 1.27 X10^3/ul (0.83-4.51); Lymphocyte % 13.8 % (19-41); Mean Corp Hgb Conc 32.3 g/dL (32-36); Mean Corpuscular Hgb 31.1 pg (27.0-32.0); Mean Corpuscular Volume 96.3 fL (81-99); Monocyte# 0.88 X10^3/uL; Monocyte% 9.6 % (0-10); NRBC Flagged by Analyzer 0 % (0-5); Neutrophil # 6.59 X10^3/uL (2.7-7.7); Neutrophil % 71.9 % (47-70); Platelet Count 307 K/mm3 (150-450); RBC Distribution Width CV 13.1 % (11.6-14.6); Red Blood Count 3.22 M/mm3 (4.2-5.4); White Blood Count 9.2 K/mm3 (4.4-11.0)
[2024-07-07 07:46] LABS: Anion Gap 12 (5-15); BUN 8 mg/dL (4-19); BUN/Creat Ratio 12.9 RATIO (10-20); Calcium,Total 8.4 mg/dL (7.6-11.0); Carbon Dioxide 28.4 mmol/L (21.0-32.0); Chloride 91 mmol/L (98-108); Creatinine, Serum 0.61 mg/dL (0.70-1.20); EST Glomerular Filtration Rate 97 (>60); Glucose 98 mg/dL (70-99); Sodium Level 131 mmol/L (133-145)
[2024-07-07] MEDS: Enoxaparin 40 MG/0.4 ML Syringe SC (09:27)
[2024-07-07] MEDS: DULoxetine Hcl 30 MG Capsule PO (09:30)
[2024-07-07] MEDS: Gabapentin 300 MG Capsule PO ×3 (09:30→17:17)
[2024-07-07] MEDS: Metoprolol Tartrate 25 MG Tablet PO ×2 (09:31→23:30)
[2024-07-07] MEDS: Hydroxychloroquine 200 MG Tablet PO (09:31)
[2024-07-07] MEDS: Folic Acid 1 MG Tablet PO (09:32)
[2024-07-07] MEDS: Potassium Chloride Oral Tablet 20 MEQ PO (09:40)
[2024-07-07] MEDS: Furosemide 40 MG Tablet PO (09:40)
[2024-07-07] MEDS: Loperamide 2 MG Capsule PO ×2 (11:43→16:01)
[2024-07-07] MEDS: Ferrous Sulfate 325 MG Tablet PO (11:46)
[2024-07-07] MEDS: Lactobacillis Acidophilus 1 CAP PO ×2 (12:52→23:31)
--- NOTE | 2024-07-07 16:00 | PCM.PN.HOSP ---
Reason for Visit Reason for Visit: Diagnoses Elevated white blood cell count, unspecified (07/04/24) Disorientation, unspecified (07/04/24) Objective Data Objective Data Vital Signs: Vital Signs Temp Pulse Resp BP Pulse Ox O2 Del Method O2 Flow Rate 98.5 F 102 H 18 119/59 L 100 Nasal Cannula 4 07/07/24 09:00 07/07/24 09:31 07/07/24 09:00 07/07/24 09:31 07/07/24 09:00 07/07/24 09:00 07/07/24 14:21 Oxygen Flow Rate (L/min) 4 Oxygen Delivery Method Nasal Cannula Weight: 192 lb 0.108 oz Body Mass Index (BMI) 37.5 Intake & Output: Intake and Output for Last 24 Hours 07/05/24 07/06/24 07/07/24 23:59 23:59 23:59 Intake Total 2695 / 2695 2200 / 2200 850 / 850 Output Total 1290 / 1290 Balance 1405 / 1405 2200 / 2200 850 / 850 Lab / Micro Data 07/07/24 06:31 07/07/24 06:31 Labs: Laboratory Results - last 24 hr 07/07/24 06:31: WBC 9.2, RBC 3.22 L, Hgb 10.0 L, Hct 31.0 L, MCV 96.3, MCH 31.1, MCHC 32.3, RDW Std Deviation 47.0 H, RDW Coeff of Edilma 13.1, Plt Count 307, MPV 9.0, Immature Gran % (Auto) 0.500, Neut % (Auto) 71.9 H, Lymph % (Auto) 13.8 L, Alpine % (Auto) 9.6, Eos % (Auto) 3.5, Baso % (Auto) 0.7, Absolute Neuts (auto) 6.6, Absolute Lymphs (auto) 1.27, Nucleated RBC % 0, Sodium 131 L, Potassium 4.0, Chloride 91 L, Carbon Dioxide 28.4, Anion Gap 12, BUN 8, Creatinine 0.61 L, Estim Creat Clear Calc 65.10, Est GFR (MDRD) Non-Af 97, BUN/Creatinine Ratio 12.9, Glucose 98, Calcium 8.4 Micro: Microbiology 07/06/24 11:40 Stool Enteric Bacteriology - Final 07/04/24 14:36 Blood Culture (Wb) - Anticubital Right Blood Culture - Preliminary No growth in 48 hours. 07/04/24 13:20 Blood Culture (Wb) - Chest Blood Culture - Preliminary No growth in 48 hours. 07/04/24 13:08 Urine, Catheterized Urine Culture - Final Culture exhibits no growth. 07/05/24 07:00 Stool C. difficile GDH Antigen & Toxins - Final 07/05/24 07:00 Stool Clostridioides difficile (PCR) - Final 07/04/24 13:25 Mucosa - Nose SARS-CoV-2, Influenza & RSV (PCR) - Final Rhythm Strip Rhythm Strip: Sinus Rhythm Rate: 86 Ectopy: None Physical Exam Narrative Seen and examined. She said she had 5 times loose bowel movement in the morning today and she still feels like fecal urgency to go bathroom. Enteric pathogen panel and C. difficile came negative. Started on Imodium and probiotic. Patient was admitted with confusion and fall on the buttock region on the wet grass. She also had diarrhea for 3 to 4 days. She took antibiotic amoxicillin for sinus infection about May/June 2024 She has a history of chronic lymphedema and varicose vein and had venous surgery. Chronically on 4 L of oxygen. Physical exam General: Alert, Oriented x3, Cooperative. BMI 37.5 kg/m?, morbid obesity HEENT: Atraumatic, PERRLA, EOMI, Normocephalic. Oral: No Gingival or Mucosal Lesions/ Ulcerations Neck: Supple, No JVD, Negative Carotid Bruits Chest wall/Lungs: Air entry diminished in bilateral lung, right more than left. Right lung base inspiratory fine rales Cardiovascular: Regular rate and rhythm, Normal S1,S2, No M/G/R Abdomen: Bowel Sounds Present, Soft, Non Tender, Non-Distended : No dysuria. No renal angle tenderness. No suprapubic tenderness. Extremities: 3+ bilateral LE chronic lymphedema, Capillary Refill Less than 3 Seconds Skin: No rashes, No breakdown Musculoskeletal: Degenerative arthritis of bilateral knees. No Tenderness to Palpation of Joints or Extremities. ROM restricted Neurological: Cranial nerves II-XII grossly intact, DTR 2+/4. Muscle strength 4/5 at knees and hip joints Psych/Mental Status: Flat affect. Assessment & Plan Assessment/Plan (1) Leukocytosis: (2) Acute confusion: PLAN: Plan 69-year-old female admitted after she fell on wet grass the driveway, probably she fell on her buttock. She has been confused for last several days. Recently had sinus infection on amoxicillin denies any chest or abdominal pain no nausea vomiting or dysuria. 1. Altered mental status and confusion with episodic hypotension and diarrhea: Her BP was low 88/65 and 95/60 in ED. ? She does have a leukocytosis to 17,000, unclear etiology. Stool studies have been ordered for C. difficile and enteric pathogen panel. ? She is on a baseline of 4 L nasal cannula and she is not requiring increased oxygen ?07/05: Her lungs have both crepitations therefore discontinue IV fluid. Bilateral lower extremity lymphedema. Bilateral Tello wrap bandage ordered. 07/06: Has a right lung chronic interstitial fibrosis with cystic changes and scarring as reviewed in CT chest on 05/03/2024. Similar chest x-ray finding on 07/04 and 07/05. Her mental status has improved. BP 103/52. No fever. Diarrhea has improved. Enteric pituitary panel pending otherwise C. difficile negative. Blood culture negative for 48 hours. 07/07: Patient said she had right mastectomy for breast cancer and had radiation after that she developed right lung fibrosis. Noninfectious diarrhea probably osmotic diarrhea: Probiotic and Imodium ordered. If not controlled then, consider colesevelam 2. Chronic diastolic CHF/essential HTN ? Echo on 02/24/2024 with an EF of 60% ?Continue holding Lasix and might resume from tomorrow. ?Resume low-dose metoprolol. 07/06: Lasix was resumed in the morning. On furosemide, metoprolol 25 twice daily, and potassium 3. Rheumatoid arthritis ? Continue with her home medications 4. Iron deficiency anemia ? Continue with her iron supplementation 5. Anxiety/depression ? Continue with her Cymbalta as well as her nortriptyline 6. Hypothyroidism ? Continue with Synthroid DVT: Lovenox Charges/Coding Visit Charges Inpatient E&M: 30158 Subs Hosp L2
[2024-07-07] MEDS: Menthol/Lanolin/Calamine/Znox 113 GM Tube 1 APPLIC TOPICAL ×2 (16:02→23:32)
[2024-07-07] MEDS: Ondansetron 4 MG/2 ML Vial IV (23:22)
[2024-07-07] MEDS: 0.9% Saline Lock 10 ML Syringe IV (23:22)
[2024-07-07] MEDS: Nortriptyline 25 MG Capsule PO (23:31)
[2024-07-08] VITALS (7 sets, daily range): BP systolic 82–112; BP diastolic 46–62; PULSE 92–110; RESP 18–26; TEMP 36.7–37.1; O2SAT 94–100; BMI 39.3
[2024-07-08] MEDS: 0.9% Normal Saline (500mL Bag) 500 ML 999 ML IV (02:26)
[2024-07-08] MEDS: 0.9% Saline Lock 10 ML Syringe IV ×3 (03:32→23:21)
[2024-07-08] MEDS: Levothyroxine 75 MCG Tablet PO (07:12)
[2024-07-08] MEDS: Lactobacillis Acidophilus 1 CAP PO ×3 (07:12→23:20)
[2024-07-08] MEDS: Ondansetron 4 MG/2 ML Vial IV ×2 (07:13→23:25)
[2024-07-08 07:18] LABS: Absolute Lymphocyte Count 1.29 X10^3/uL (0.83-4.51); Absolute Neutrophil Count 5.7 X10^3/uL (2.0-7.7); Basophil# 0.05 X10^3/uL; Basophil% 0.6 % (0-1); Eosinophil# 0.21 X10^3/uL; Eosinophils% 2.5 % (0-5); Hemoglobin 9.9 g/dL (12.0-15.0); Lymphocyte # 1.29 X10^3/ul (0.83-4.51); Lymphocyte % 15.3 % (19-41); Mean Corp Hgb Conc 31.9 g/dL (32-36); Mean Corpuscular Hgb 30.7 pg (27.0-32.0); Mean Corpuscular Volume 96.3 fL (81-99); Mean Platelet Vol. 9.3 fl (6.2-12.0); Monocyte% 13.1 % (0-10); NRBC Flagged by Analyzer 0 % (0-5); Neutrophil # 5.73 X10^3/uL (2.7-7.7); Neutrophil % 68.1 % (47-70); Platelet Count 337 K/mm3 (150-450); RBC Distribution Width CV 13.4 % (11.6-14.6); RBC Distribution Width SD 47.8 fl (35.1-43.9); Red Blood Count 3.22 M/mm3 (4.2-5.4); White Blood Count 8.4 K/mm3 (4.4-11.0)
[2024-07-08 07:39] LABS: Anion Gap 11 (5-15); BUN 7 mg/dL (4-19); Calcium,Total 8.4 mg/dL (7.6-11.0); Carbon Dioxide 31.3 mmol/L (21.0-32.0); Chloride 91 mmol/L (98-108); Creatinine, Serum 0.75 mg/dL (0.70-1.20); EST Glomerular Filtration Rate 86 (>60); Glucose 109 mg/dL (70-99); Sodium Level 132 mmol/L (133-145)
[2024-07-08] MEDS: Hydroxychloroquine 200 MG Tablet PO (09:52)
[2024-07-08] MEDS: DULoxetine Hcl 30 MG Capsule PO (09:52)
[2024-07-08] MEDS: Folic Acid 1 MG Tablet PO (09:53)
[2024-07-08] MEDS: Enoxaparin 40 MG/0.4 ML Syringe SC (09:53)
[2024-07-08] MEDS: Potassium Chloride Oral Tablet 20 MEQ PO (09:53)
[2024-07-08] MEDS: Gabapentin 300 MG Capsule PO ×3 (09:53→17:35)
[2024-07-08] MEDS: Menthol/Lanolin/Calamine/Znox 113 GM Tube 1 APPLIC TOPICAL ×2 (09:55→23:30)
[2024-07-08] MEDS: Vancomycin 125 MG/5 ML Susp PO.SYRINGE PO ×3 (12:56→23:21)
[2024-07-08] MEDS: Ferrous Sulfate 325 MG Tablet PO (12:56)
--- NOTE | 2024-07-08 15:49 | PN.HOSP_ITS ---
Reason for Visit Reason for Visit: Diagnoses Elevated white blood cell count, unspecified (07/04/24) Disorientation, unspecified (07/04/24) Objective Data Objective Data Vital Signs: Vital Signs Temp Pulse Resp BP Pulse Ox O2 Del Method O2 Flow Rate 98.2 F 92 20 H 102/54 L 100 Nasal Cannula 2 07/08/24 07:11 07/08/24 09:54 07/08/24 07:11 07/08/24 09:54 07/08/24 07:11 07/08/24 10:00 07/08/24 10:00 Oxygen Flow Rate (L/min) 2 Oxygen Delivery Method Nasal Cannula Weight: 200 lb 4.8 oz Body Mass Index (BMI) 39.3 Intake & Output: Intake and Output for Last 24 Hours 07/06/24 07/07/24 07/08/24 23:59 23:59 23:59 Intake Total 2200 / 2200 2300 / 2300 1350 / 1350 Balance 2200 / 2200 2300 / 2300 1350 / 1350 Lab / Micro Data 07/08/24 06:42 07/08/24 06:42 Labs: Laboratory Results - last 24 hr 07/08/24 06:42: WBC 8.4, RBC 3.22 L, Hgb 9.9 L, Hct 31.0 L, MCV 96.3, MCH 30.7, MCHC 31.9 L, RDW Std Deviation 47.8 H, RDW Coeff of Edilma 13.4, Plt Count 337, MPV 9.3, Immature Gran % (Auto) 0.400, Neut % (Auto) 68.1, Lymph % (Auto) 15.3 L, M kimberly % (Auto) 13.1 H, Eos % (Auto) 2.5, Baso % (Auto) 0.6, Absolute Neuts (auto) 5.7, Absolute Lymphs (auto) 1.29, Nucleated RBC % 0, Sodium 132 L, Potassium 4.0, Chloride 91 L, Carbon Dioxide 31.3, Anion Gap 11, BUN 7, Creatinine 0.75, Estim Creat Clear Calc 65.10, Est GFR (MDRD) Non-Af 86, BUN/Creatinine Ratio 10.0, Glucose 109 H, Calcium 8.4 Micro: Microbiology 07/06/24 11:40 Stool Enteric Bacteriology - Final 07/04/24 14:36 Blood Culture (Wb) - Anticubital Right Blood Culture - Preliminary No growth in 48 hours. 07/04/24 13:20 Blood Culture (Wb) - Chest Blood Culture - Preliminary No growth in 48 hours. 07/04/24 13:08 Urine, Catheterized Urine Culture - Final Culture exhibits no growth. 07/05/24 07:00 Stool C. difficile GDH Antigen & Toxins - Final 07/05/24 07:00 Stool Clostridioides difficile (PCR) - Final 07/04/24 13:25 Mucosa - Nose SARS-CoV-2, Influenza & RSV (PCR) - Final Rhythm Strip Rhythm Strip: Sinus Rhythm Rate: 86 Ectopy: None Physical Exam Narrative Seen and examined. She is still having diarrhea 3 times in the morning and abdominal cramps. C. difficile antigen are positive but toxins are negative. Patient was admitted with confusion and fall on the buttock region on the wet grass. She also had diarrhea for 3 to 4 days. She took antibiotic amoxicillin for sinus infection about May/June 2024 She has a history of chronic lymphedema and varicose vein and had venous surgery. Chronically on 4 L of oxygen. Physical exam General: Alert, Oriented x3, Cooperative. BMI 37.5 kg/m?, morbid obesity HEENT: Atraumatic, PERRLA, EOMI, Normocephalic. Oral: No Gingival or Mucosal Lesions/ Ulcerations Neck: Supple, No JVD, Negative Carotid Bruits Chest wall/Lungs: Air entry diminished in bilateral lung, right more than left. Right lung base inspiratory fine rales Cardiovascular: Regular rate and rhythm, Normal S1,S2, No M/G/R Abdomen: Bowel Sounds Present, Soft, no specific point tenderness. Non- Distended : No dysuria. No renal angle tenderness. No suprapubic tenderness. Extremities: 3+ bilateral LE chronic lymphedema, Capillary Refill Less than 3 Seconds Skin: No rashes, No breakdown Musculoskeletal: Degenerative arthritis of bilateral knees. No Tenderness to Palpation of Joints or Extremities. ROM restricted Neurological: Cranial nerves II-XII grossly intact, DTR 2+/4. Muscle strength 4/5 at knees and hip joints Psych/Mental Status: Flat affect. Assessment & Plan Assessment/Plan (1) Leukocytosis: (2) Acute confusion: PLAN: Plan 69-year-old female admitted after she fell on wet grass the driveway, probably she fell on her buttock. She has been confused for last several days. Recently had sinus infection on amoxicillin denies any chest or abdominal pain no nausea vomiting or dysuria. 1. Altered mental status and confusion with episodic hypotension and diarrhea: Her BP was low 88/65 and 95/60 in ED. ? She does have a leukocytosis to 17,000, unclear etiology. Stool studies have been ordered for C. difficile and enteric pathogen panel. ? She is on a baseline of 4 L nasal cannula and she is not requiring increased oxygen ?07/05: Her lungs have both crepitations therefore discontinue IV fluid. Bilateral lower extremity lymphedema. Bilateral Tello wrap bandage ordered. 07/06: Has a right lung chronic interstitial fibrosis with cystic changes and scarring as reviewed in CT chest on 05/03/2024. Similar chest x-ray finding on 07/04 and 07/05. Her mental status has improved. BP 103/52. No fever. Diarrhea has improved. Enteric pituitary panel pending otherwise C. difficile negative. Blood culture negative for 48 hours. 07/07: Patient said she had right mastectomy for breast cancer and had radiation after that she developed right lung fibrosis. 07/08: Stool for C. difficile positive for A and B antigen but negative for toxin therefore decided to start on vancomycin oral as she is symptomatic with abdominal pain and diarrhea. Continue probiotic but Imodium discontinued 2. Chronic diastolic CHF/essential HTN ? Echo on 02/24/2024 with an EF of 60% ?Continue holding Lasix and might resume from tomorrow. ?Resume low-dose metoprolol. 07/06: Lasix was resumed in the morning. On furosemide, metoprolol 25 twice daily, and potassium 07/08: Hold Lasix as she is getting dehydrated. 3. Rheumatoid arthritis ? Continue with her home medications 4. Iron deficiency anemia ? Continue with her iron supplementation 5. Anxiety/depression ? Continue with her Cymbalta as well as her nortriptyline 6. Hypothyroidism ? Continue with Synthroid DVT: Lovenox Charges/Coding Visit Charges Inpatient E&M: 81896 Subs Hosp L2
[2024-07-08] MEDS: oxyCODONE 5 MG Tablet PO ×2 (18:59→23:26)
[2024-07-08] MEDS: Nortriptyline 25 MG Capsule PO (23:20)
[2024-07-09 06:00] VITALS: BMI 39.9
[2024-07-09 06:01] VITALS: BP 127/54; PULSE 116; RESP 24; TEMP 36.8; O2SAT 99
[2024-07-09] MEDS: oxyCODONE 5 MG Tablet PO ×2 (06:10→12:18)
[2024-07-09] MEDS: Vancomycin 125 MG/5 ML Susp PO.SYRINGE PO ×2 (06:10→12:00)
[2024-07-09] MEDS: Lactobacillis Acidophilus 1 CAP PO ×2 (06:10→14:44)
[2024-07-09] MEDS: Levothyroxine 75 MCG Tablet PO (06:10)
[2024-07-09] MEDS: Hydroxychloroquine 200 MG Tablet PO (08:11)
[2024-07-09] MEDS: Potassium Chloride Oral Tablet 20 MEQ PO (08:11)
[2024-07-09] MEDS: DULoxetine Hcl 30 MG Capsule PO (08:11)
[2024-07-09] MEDS: Folic Acid 1 MG Tablet PO (08:11)
[2024-07-09 08:12] VITALS: PULSE 112
[2024-07-09] MEDS: Metoprolol Tartrate 25 MG Tablet PO (08:12)
[2024-07-09] MEDS: Gabapentin 300 MG Capsule PO ×2 (08:12→12:00)
[2024-07-09] MEDS: Menthol/Lanolin/Calamine/Znox 113 GM Tube 1 APPLIC TOPICAL (08:12)
[2024-07-09] MEDS: Enoxaparin 40 MG/0.4 ML Syringe SC (08:14)
[2024-07-09 08:17] VITALS: BP 119/63; PULSE 112; RESP 18; TEMP 37.1; O2SAT 98
--- NOTE | 2024-07-09 10:36 | DCINST_ITS ---
Discharge Instructions Diet Discharge Diet: Light diet - advance as tolerated, Low fat / Low cholesterol and 2000 mg Sodium Diet DC O2, CPAP, BIPAP needs Home O2 Discharge instructions: No Dressing / Incision Discharge Activity: Return to Normal Activity Weight Bearing Status: Weight bearing as tolerated Dressing / Incision Call your doctor if you observe: Fever of 101 or Higher, Coldness, Increased Pain, Numbness or Tingling, Change in Color, Inability to urinate, Inability to have a bowel movement, Shortness of breath, Dizziness, Fainting spells, Swelling in the ankles, Chest pain, Prolonged hiccupping, Increased palpitations (irregular heartbeat) and Calf discomfort Follow Up Care When: IN 2 WEEKS Test Results: Test results from this visit will be discussed in further detail at your follow- up appointment, if applicable. Discharge Plan Admission Admit Date/Time: 07/04/24 17:13 Primary Reason for Your Visit: Fall, failure to thrive. C. difficile colitis Attending Provider: Fareed Smart Primary Care Provider: Baldomero Wright Consulting Providers: Ehsan Mejia Discharge Orders/Prescriptions Prescriptions: marv SerraBBonitabif-S.therm 175 mg Capsule 1 cap PO TID 14 Days Qty: 42 0RF Rx Instructions: [id number]. Recommend for 2 weeks vancomycin [Firvanq] 25 mg/mL Recon Soln 125 mg PO Q6 14 Days Qty: 280 0RF Continued multivitamin [Multiple Vitamins] tablet 1 tab PO DAILY ferrous sulfate 325 mg (65 mg iron) tablet 325 mg PO DAILY lorazepam 1 mg tablet 0.5 mg PO DAILY PRN (Reason: Anxiety) clobetasol 0.05 % ointment 1 applic TOPICAL DAILY PRN (Reason: SKIN CONDITION) levothyroxine 75 mcg tablet 75 mcg PO DAILY methotrexate sodium 2.5 mg tablet 15 mg PO SHARP ondansetron HCl 4 mg tablet 4 mg PO Q8H PRN (Reason: nausea and vomiting) nortriptyline 25 mg capsule 25 mg PO QHS hydrocodone-acetaminophen 5-325 mg tablet 1 tab PO TID PRN (Reason: pain) duloxetine 30 mg capsule,delayed release(DR/EC) 30 mg PO DAILY folic acid 1 mg tablet 1 mg PO DAILY metoprolol tartrate 25 mg tablet 25 mg PO BID Qty: 60 12RF gabapentin 300 mg capsule 300 mg PO TIDCM Patient Comments: Taking 2 at [id number] hydroxychloroquine 200 MG tablet 200 mg PO DAILYCM [id number] [id number] mg tablet 4 tab PO DAILY potassium chloride [Klor-Con M20] 20 mEq Tablet,Er Particles/Crystals 20 meq PO DAILYCM PRN (Reason: hypokalemia) cyclobenzaprine 10 mg tablet 10 mg PO TID PRN (Reason: muscle spasm) Complex B-100 Tablet Extended Release 1 tab PO DAILY (DME) Nebulizer machine See Rx Instructions .ROUTE .MEDSUPPLY Qty: 1 0RF Rx Instructions: As directed furosemide 40 mg tablet 40 mg PO DAILY Qty: 90 3RF Referrals / Follow Up: Baldomero Wright MD [Primary Care Provider] - Within 2 Weeks Disposition Disposition (needs filled in before D/C Order can be placed): Home, Self Care
--- NOTE | 2024-07-09 11:18 | CASEMGMT ---
Hospitalist agreeable to outpt PT. TC to [employer], appt made for 07/15 at 1pm. Updated dc plan.
--- NOTE | 2024-07-09 11:55 | DS.PCM_ITS ---
Providers Date of Admission: 07/04/24 Date of Discharge: 07/09/24 Primary Care Physician: Dr. Baldomero Wright MD Reason For Visit: Diarrhea Diagnosis Discharge Diagnosis (1) Leukocytosis: Status: Acute Code(s): D72.829 - Elevated white blood cell count, unspecified (2) Acute confusion: Status: Acute Code(s): R41.0 - Disorientation, unspecified Plan 69-year-old female admitted after she fell on wet grass the driveway, probably she fell on her buttock. She has been confused for last several days. Recently had sinus infection on amoxicillin denies any chest or abdominal pain no nausea vomiting or dysuria. 1. Altered mental status and confusion with episodic hypotension and diarrhea: Her BP was low 88/65 and 95/60 in ED. ? She does have a leukocytosis to 17,000, unclear etiology. Stool studies have been ordered for C. difficile and enteric pathogen panel. ? She is on a baseline of 4 L nasal cannula and she is not requiring increased oxygen ?07/05: Her lungs have both crepitations therefore discontinue IV fluid. Bilateral lower extremity lymphedema. Bilateral Tello wrap bandage ordered. 07/06: Has a right lung chronic interstitial fibrosis with cystic changes and scarring as reviewed in CT chest on 05/03/2024. Similar chest x-ray finding on 07/04 and 07/05. Her mental status has improved. BP 103/52. No fever. Diarrhea has improved. Enteric pituitary panel pending otherwise C. difficile negative. Blood culture negative for 48 hours. 07/07: Patient said she had right mastectomy for breast cancer and had radiation after that she developed right lung fibrosis. 07/08: Stool for C. difficile positive for A and B antigen but negative for toxin therefore decided to start on vancomycin oral as she is symptomatic with abdominal pain and diarrhea. Continue probiotic but Imodium discontinued 07/09: Patient discharged on 2-week course of oral vancomycin. Advised to continue antibiotic for 2 weeks. 2. Chronic diastolic CHF/essential HTN ? Echo on 02/24/2024 with an EF of 60% ?Continue holding Lasix and might resume from tomorrow. ?Resume low-dose metoprolol. 07/06: Lasix was resumed in the morning. On furosemide, metoprolol 25 twice daily, and potassium 07/08: Hold Lasix as she is getting dehydrated. 07/09: Home medication Lasix resumed. 3. Rheumatoid arthritis ? Continue with her home medications 4. Iron deficiency anemia ? Continue with her iron supplementation 5. Anxiety/depression ? Continue with her Cymbalta as well as her nortriptyline 6. Hypothyroidism ? Continue with Synthroid DVT: Lovenox Discharge medication reconciliation done. Discharge follow-up instructions completed. Discharge process discussed with the patient and all questions were answered to patient's satisfaction. Follow with PCP in 1 to 2 weeks. Total time spent, exact 35 minutes on discharge meds reconciliation, examination, coordination of care with nurses and ancillary staff, review of imaging and blood test and discussion with the patient on follow-up instructions. Medications at Discharge Home Medications hydroxychloroquine 200 mg tablet 200 mg PO DAILYCM immunosuppresent 07/05/15 ferrous sulfate 325 mg (65 mg iron) tablet 325 mg PO DAILY 05/28/17 multivitamin (Multiple Vitamins tablet) 1 tab PO DAILY dietary 05/28/17 clobetasol 0.05 % topical ointment 1 applic topical DAILY PRN SKIN CONDITION 05/17/20 levothyroxine 75 mcg tablet 75 mcg PO DAILY thyroid 05/17/20 lorazepam 1 mg tablet 0.5 mg PO DAILY PRN Anxiety 05/17/20 methotrexate sodium 2.5 mg tablet 15 mg PO SHARP immunosuppresent 05/17/20 nortriptyline 25 mg capsule 25 mg PO QHS nerve pain 07/08/22 ondansetron HCl 4 mg tablet 4 mg PO Q8H PRN nausea and vomiting 07/08/22 smqooho-lricdkxax-efet 333 mg-133 mg-5 mg tablet 4 tab PO DAILY SUPPLEMENT 09/09/22 Nebulizer machine #1 ea 12/02/22 duloxetine 30 mg capsule,delayed release 30 mg PO DAILY depression 01/14/23 folic acid 1 mg tablet 1 mg PO DAILY dietary supplement 01/14/23 hydrocodone-acetaminophen 5-325mg 5mg-325mg 1 tab PO TID PRN pain 01/14/23 gabapentin 300 mg capsule 300 mg PO TIDCM pain 04/22/23 metoprolol tartrate 25 mg tablet 25 mg PO BID blood pressure #60 tabs 04/22/23 furosemide 40 mg tablet 40 mg PO DAILY diuretic #90 tabs 11/19/23 potassium chloride 20 mEq tablet,extended release(part/cryst) (Klor-Con M) 20 meq PO DAILYCM PRN hypokalemia 02/23/24 cyclobenzaprine 10 mg tablet 10 mg PO TID PRN muscle spasm 07/04/24 vitamin B complex (Complex B-100 tablet,extended release) 1 tab PO DAILY 07/04/24 L.acidophil,salivari-Bifido bifidum-Strep thermoph 175 mg capsule 1 cap PO TID 14 days #42 caps 07/09/24 vancomycin 25 mg/mL oral solution (Firvanq) 125 mg (5 mL) PO Q6 2 weeks #280 mL 07/09/24 Physical Exam Narrative Seen and examined. Diarrhea frequency is better. Abdominal cramps have resolved. Patient was admitted with confusion and fall on the buttock region on the wet grass. She also had diarrhea for 3 to 4 days. She took antibiotic amoxicillin for sinus infection about June 2024 She has a history of chronic lymphedema and varicose vein and had venous surgery. Chronically on 4 L of oxygen. Physical exam General: Alert, Oriented x3, Cooperative. BMI 37.5 kg/m?, morbid obesity HEENT: Atraumatic, PERRLA, EOMI, Normocephalic. Oral: No Gingival or Mucosal Lesions/ Ulcerations Neck: Supple, No JVD, Negative Carotid Bruits Chest wall/Lungs: Air entry diminished in bilateral lung, right more than left. Chronic rales on the right lung due to fibrosis. Cardiovascular: Regular rate and rhythm, Normal S1,S2, No M/G/R Abdomen: Bowel Sounds Present, Soft, no specific point tenderness. Non- Distended : No dysuria. No renal angle tenderness. No suprapubic tenderness. Extremities: 3+ bilateral LE chronic lymphedema, Capillary Refill Less than 3 Seconds Skin: No rashes, No breakdown Musculoskeletal: Degenerative arthritis of bilateral knees. No Tenderness to Palpation of Joints or Extremities. ROM restricted Neurological: Cranial nerves II-XII grossly intact, DTR 2+/4. Muscle strength 4/5 at knees and hip joints Psych/Mental Status: Flat affect. Weight / BMI Weight Weight: 203 lb 11.314 oz Body Mass Index (BMI) 39.9 ABG / Lab / Microbiology Data 07/08/24 06:42 07/08/24 06:42 Microbiology: Microbiology 07/06/24 11:40 Stool Enteric Bacteriology - Final 07/04/24 14:36 Blood Culture (Wb) - Anticubital Right Blood Culture - Preliminary No growth in 48 hours. 07/04/24 13:20 Blood Culture (Wb) - Chest Blood Culture - Preliminary No growth in 48 hours. 07/04/24 13:08 Urine, Catheterized Urine Culture - Final Culture exhibits no growth. 07/05/24 07:00 Stool C. difficile GDH Antigen & Toxins - Final 07/05/24 07:00 Stool Clostridioides difficile (PCR) - Final 07/04/24 13:25 Mucosa - Nose SARS-CoV-2, Influenza & RSV (PCR) - Final D/C Instructions Discharge Diet: Light diet - advance as tolerated, Low fat / Low cholesterol and 2000 mg Sodium Diet Weight Bearing Status: Weight bearing as tolerated Call your doctor if you observe: Fever of 101 or Higher, Coldness, Increased Pain, Numbness or Tingling, Change in Color, Inability to urinate, Inability to have a bowel movement, Shortness of breath, Dizziness, Fainting spells, Swelling in the ankles, Chest pain, Prolonged hiccupping, Increased palpitations (irregular heartbeat) and Calf discomfort DC O2, CPAP, BIPAP Needs Home O2 Discharge instructions: No When: IN 2 WEEKS Meaningful Use Info Meaningful Use Meaningful Use Diagnoses (Choose all that apply): None applicable Ischemic Stroke Statin Dosing Therapy Reference: STATIN DOSE THERAPY REFERENCE: * Patients > 75 years receive moderate or high dose statin therapy. * Patients 75 years or YOUNGER should receive HIGH intensity statin dose unless contraindicated. You will be required to document reason for non-treatment if statin daily dose does not meet guidelines. HIGH DOSE STATIN THERAPY DAILY Atorvastatin > than or = to 40 mg Rosuvastatin > than or = to 20 mg Amlodipine + Atorvastatin > than or = to 2.5/40 mg Ezetimibe + Simvastatin 10/80 mg Simvastatin 80mg Discharge Plan Admission Admit Date/Time: 07/04/24 17:13 Primary Reason for Your Visit: Fall, failure to thrive. C. difficile colitis Attending Provider: Fareed Smart Primary Care Provider: Baldomero Wright Consulting Providers: Ehsan Mejia Discharge Orders/Prescriptions Prescriptions: New L.acidoph,saliva-B.bif-S.therm 175 mg Capsule 1 cap PO TID 14 Days Qty: 42 0RF Rx Instructions: Yowp-txt-oheixwp. Recommend for 2 weeks vancomycin [Firvanq] 25 mg/mL Recon Soln 125 mg PO Q6 14 Days Qty: 280 0RF Continued multivitamin [Multiple Vitamins] tablet 1 tab PO DAILY ferrous sulfate 325 mg (65 mg iron) tablet 325 mg PO DAILY lorazepam 1 mg tablet 0.5 mg PO DAILY PRN (Reason: Anxiety) clobetasol 0.05 % ointment 1 applic TOPICAL DAILY PRN (Reason: SKIN CONDITION) levothyroxine 75 mcg tablet 75 mcg PO DAILY methotrexate sodium 2.5 mg tablet 15 mg PO SHARP ondansetron HCl 4 mg tablet 4 mg PO Q8H PRN (Reason: nausea and vomiting) nortriptyline 25 mg capsule 25 mg PO QHS hydrocodone-acetaminophen 5-325 mg tablet 1 tab PO TID PRN (Reason: pain) duloxetine 30 mg capsule,delayed release(DR/EC) 30 mg PO DAILY folic acid 1 mg tablet 1 mg PO DAILY metoprolol tartrate 25 mg tablet 25 mg PO BID Qty: 60 12RF gabapentin 300 mg capsule 300 mg PO TIDCM Patient Comments: Taking 2 at [id number] hydroxychloroquine 200 MG tablet 200 mg PO DAILYCM oxggzof-maridzhgh-hvkw 333-133-5 mg tablet 4 tab PO DAILY potassium chloride [Klor-Con M20] 20 mEq Tablet,Er Particles/Crystals 20 meq PO DAILYCM PRN (Reason: hypokalemia) cyclobenzaprine 10 mg tablet 10 mg PO TID PRN (Reason: muscle spasm) Complex B-100 Tablet Extended Release 1 tab PO DAILY (DME) Nebulizer machine See Rx Instructions .ROUTE .MEDSUPPLY Qty: 1 0RF Rx Instructions: As directed furosemide 40 mg tablet 40 mg PO DAILY Qty: 90 3RF Referrals / Follow Up: Baldomero Wright MD [Primary Care Provider] - Within 2 Weeks Disposition Disposition (needs filled in before D/C Order can be placed): Home, Self Care Charges/Coding Visit Charges Inpatient E&M: 82419 Disch Hosp >30min
[2024-07-09] MEDS: Ondansetron 4 MG/2 ML Vial IV (12:06)
[2024-07-09] MEDS: Ferrous Sulfate 325 MG Tablet PO (12:06)
[2024-07-09] MEDS: 0.9% Saline Lock 10 ML Syringe IV (12:06)
--- NOTE | 2024-07-09 12:26 | CASEMGMT ---
Addendum entered by Sharri Disla 07/09/24 15:39: Updated rx sent to [facility] [place] via [facility] at this time. Pt has portable oxygen tank to be brought in upon dc. Addendum entered by Sharri Disla 07/09/24 14:03: EVER DELANEY into pt room, pt states she can afford the medication and will be able to obtain today. Updated hospitalist and requested the capsules be ordered as [facility] does not have the liquid. Original Note: Charge nurse notified that [facility] pharmacist called in and they do not have Firvanq but can get the capsules in. Using [facility] which is more cost effective than pt insurance the cost would be approx $96. Discussed with pt nurse that pt orders for oxygen are 4L with exertion, she will complete oxygen testing for pt. EVER DELANEY into pt room, pt is aware that the [facility] was set up per her request. Pt also aware of the cost of vancomycin and the need for the medication. Pt to discuss with her to see if they have the funds to afford. EVER DELANEY to check back.
[2024-07-09 12:46] VITALS: O2SAT 98
--- NOTE | 2024-07-09 14:03 | PHA.DC.MR.R ---
Pharmacy [place] Med Reconciliation Pharmacy Service has performed discharge medication reconciliation for this patient. The patient's discharge medication list was reviewed for discrepancies and discrepancies were resolved. Medications at Discharge Home Medications hydroxychloroquine 200 mg tablet 200 mg PO DAILYCM immunosuppresent 07/05/15 ferrous sulfate 325 mg (65 mg iron) tablet 325 mg PO DAILY 05/28/17 multivitamin (Multiple Vitamins tablet) 1 tab PO DAILY dietary 05/28/17 clobetasol 0.05 % topical ointment 1 applic topical DAILY PRN SKIN CONDITION 05/17/20 levothyroxine 75 mcg tablet 75 mcg PO DAILY thyroid 05/17/20 lorazepam 1 mg tablet 0.5 mg PO DAILY PRN Anxiety 05/17/20 methotrexate sodium 2.5 mg tablet 15 mg PO SHARP immunosuppresent 05/17/20 nortriptyline 25 mg capsule 25 mg PO QHS nerve pain 07/08/22 ondansetron HCl 4 mg tablet 4 mg PO Q8H PRN nausea and vomiting 07/08/22 lqpnedb-shdhcuehq-jlas 333 mg-133 mg-5 mg tablet 4 tab PO DAILY SUPPLEMENT 09/09/22 Nebulizer machine #1 ea 12/02/22 duloxetine 30 mg capsule,delayed release 30 mg PO DAILY depression 01/14/23 folic acid 1 mg tablet 1 mg PO DAILY dietary supplement 01/14/23 hydrocodone-acetaminophen 5-325mg 5mg-325mg 1 tab PO TID PRN pain 01/14/23 gabapentin 300 mg capsule 300 mg PO TIDCM pain 04/22/23 metoprolol tartrate 25 mg tablet 25 mg PO BID blood pressure #60 tabs 04/22/23 furosemide 40 mg tablet 40 mg PO DAILY diuretic #90 tabs 11/19/23 potassium chloride 20 mEq tablet,extended release(part/cryst) (Klor-Con M) 20 meq PO DAILYCM PRN hypokalemia 02/23/24 cyclobenzaprine 10 mg tablet 10 mg PO TID PRN muscle spasm 07/04/24 vitamin B complex (Complex B-100 tablet,extended release) 1 tab PO DAILY 07/04/24 L.acidophil,salivari-Bifido bifidum-Strep thermoph 175 mg capsule 1 cap PO TID 14 days #42 caps 07/09/24 vancomycin 25 mg/mL oral solution (Firvanq) 125 mg (5 mL) PO Q6 2 weeks #280 mL 07/09/24
[2024-07-09 14:53] VITALS: BP 103/60; PULSE 96; RESP 18; TEMP 36.7; O2SAT 99
[2024-07-09 15:01] VITALS: O2SAT 85; O2SAT 93; O2SAT 96
== END 2024-07-09 15:54 | disposition home or self-care (01) | DRG 371 ==
LOC: ED 16:54 → MS3 17:23
PROVIDERS: Admitting Provider Family Medicine; Emergency Provider Emergency Medicine; PCP Family Medicine; Visit Provider Internal Medicine
DX: A04.72 Enterocolitis due to Clostridium difficile, not specified as recurrent (principal); G93.41 Metabolic encephalopathy; I50.32 Chronic diastolic (congestive) heart failure; I11.0 Hypertensive heart disease with heart failure; M06.9 Rheumatoid arthritis, unspecified; D50.9 Iron deficiency anemia, unspecified; E03.9 Hypothyroidism, unspecified; F32.A Depression, unspecified; J84.10 Pulmonary fibrosis, unspecified; I95.9 Hypotension, unspecified; D72.829 Elevated white blood cell count, unspecified; W18.30XA Fall on same level, unspecified, initial encounter; I89.0 Lymphedema, not elsewhere classified; Z90.710 Acquired absence of both cervix and uterus; Z79.890 Hormone replacement therapy; R41.0 Disorientation, unspecified; Z86.16 Personal history of COVID-19; Z92.3 Personal history of irradiation; Z85.3 Personal history of malignant neoplasm of breast; Z86.711 Personal history of pulmonary embolism; Z79.899 Other long term (current) drug therapy; Z88.8 Allergy status to other drugs, medicaments and biological substances; Z88.5 Allergy status to narcotic agent; Z88.6 Allergy status to analgesic agent; Z99.81 Dependence on supplemental oxygen
CPT/HCPCS: 36415; 51702; 70450; 71045; 71046; 72125; 80048; 80053; 81001; 83605; 84156; 84484; 85025; 85610; 85730; 87040; 87086; 87177; 87209; 87493; 87506; 87631; 93005; 97161; 97166; 97802; 99285; A4216; J2405

== ENCOUNTER 2024-07-14 10:04 | Inpatient (IN) | payer MEDICARE, SELFPAY ==
[2024-07-14] VITALS (27 sets, daily range): BP systolic 68–147; BP diastolic 44–109; PULSE 20–142; RESP 14–36; TEMP 36.4–38.4; O2SAT 75–98; BMI 39.5; BMI 31.5
--- NOTE | 2024-07-14 10:06 | EKG12_ITS ---
Test Reason : Blood Pressure : */* mmHG Vent. Rate : 104 BPM Atrial Rate : 104 BPM P-R Int : 172 ms QRS Dur : 102 ms QT Int : 360 ms P-R-T Axes : 46 -62 30 degrees QTcB Int : 473 ms Critical Test Result: STEMI Sinus tachycardia Left axis deviation Inferior infarct , age undetermined Confirmed by SHARAD MCCABE, TOSIN ([id number]), editor producer SARA FORREST ([id number]) on 07/19/2024 9:00:38 AM Referred By: LANCE Confirmed By: TOSIN OROURKE MD
--- NOTE | 2024-07-14 10:06 | RAD_ITS ---
PROCEDURE: CHEST 1 VIEW (PORTABLE) 07/14/2024 REASON FOR EXAM: RESPIRATORY FAILURE TECHNIQUE: Frontal view of the chest. COMPARISON: July 05, 2024 FINDINGS: There is an ET tube in position 2.3 cm above the level of the rafa, deviated towards the right. There is an enteric tube in the midline at the level of the diaphragm. There is no visible pneumothorax. There is elevation of the right hemidiaphragm. Lung volumes are decreased. There are diffuse interstitial and alveolar infiltrates throughout the right and left lung. Surgical clips are noted in the upper abdomen. No definite acute bony abnormality is seen. Aortic calcifications are visible. RAD/Chest 1 View (Portable) IMPRESSION: There is an ET tube in position 2.3 cm above the level of the rafa, deviated towards the right, similar to the prior. There is an enteric tube in the midline at the level of the diaphragm. There is elevation of the right hemidiaphragm. There are diffuse interstitial and alveolar infiltrates throughout the right an d left lung. Reading Location: [facility]
--- NOTE | 2024-07-14 10:07 | RAD_ITS ---
PROCEDURE: CHEST 1 VIEW 07/14/2024 REASON FOR EXAM: NG INSERTION TECHNIQUE: Frontal view of the chest. COMPARISON: Portable chest same date FINDINGS: There is an ET tube in position 3 cm above the level of the rafa, deviated towards the right. There is an enteric tube in the midline 3.5 cm below the level of the rafa, likely in the esophagus. There is no visible pneumothorax. There is no definite effusion. There is elevation of the right hemidiaphragm. Lung volumes appear decreased. There are diffuse interstitial and alveolar infiltrates throughout the right and left lung. Surgical clips are noted in the right chest and in the upper abdomen. There is no visible acute bony abnormality. Aortic calcifications are noted. RAD/Chest 1 View IMPRESSION: There is an ET tube in position 3 cm above the level of the rafa, deviated to wards the right. There is an enteric tube in the midline 3.5 cm below the level of the rafa, l ikely in the esophagus. There are diffuse interstitial and alveolar infiltrates throughout the right an d left lung. Reading Location: [facility]
[2024-07-14] MEDS: Etomidate 20 MG/10 ML Vial IV (10:20)
[2024-07-14] MEDS: Rocuronium Bromide 50 MG/5 ML Vial 75 MG IV (10:33)
[2024-07-14] MEDS: Nitroglycerin Infusion 250 ML 3 MG CONT INF (10:34)
[2024-07-14] MEDS: fentaNYL drip 100 ML 2.5 MCG CONT INF (10:34)
--- NOTE | 2024-07-14 10:36 | EKG12_ITS ---
Test Reason : UNRESPONSIVE Blood Pressure : */* mmHG Vent. Rate : 122 BPM Atrial Rate : 122 BPM P-R Int : 178 ms QRS Dur : 104 ms QT Int : 300 ms P-R-T Axes : 18 -55 54 degrees QTcB Int : 427 ms Sinus tachycardia Possible Left atrial enlargement Left axis deviation Minimal voltage criteria for LVH, may be normal variant ( [place] product ) Inferior infarct , age undetermined Abnormal ECG Confirmed by TOSIN OROURKE MD ([id number]), communications editor SARA FORREST [id number]) on 07/19/2024 11:51:24 AM Referred By: LANCE Confirmed By: TOSIN OROURKE MD
--- NOTE | 2024-07-14 10:57 | EX.ED.CRITCA ---
HPI History of Present Illness Chief Complaint: Shortness of Breath Detail of Chief Complaint: Shortness of breath, history of congestive heart failure Informant: patient Onset/Context/Timing Onset: Yesterday Context: Sudden Onset Timing: Continuous Quality: Shortness of breath Location: Respiratory Current Severity: Severe Maximum Severity: Severe Worsened by: Nothing per patient Relieved by: Nothing Associated Symptoms Associated Symptoms: abdominal pain, chest pain, chills, cough, fever, vomiting, diarrhea and palpitations Narrative Narrative: Patient is a 69-year-old woman. She has history of congestive heart failure chronic diastolic, essential hypertension, mitral valve annular calcification, breast cancer status post right mastectomy, BMI greater than 40 who presents because of shortness of breath that started abruptly last evening. Question of chest discomfort. She has no cough. She has no sputum production. She denies pain with breathing. She normally sleeps with 1 pillow. She was not able to lie flat yesterday. She nodded yes and no to most questions. She denied headache, visual, ocular auditory symptoms. She denied GI symptoms. She denied urologic symptoms. Prior similar symptoms: Yes (Heart failure) Recent Illness/Hospitalization: No PFSH PFSH Medical History Sarcoidosis of lung Osteoporosis Pulmonary embolism Congestive heart failure (CHF) Wears partial dentures Wears glasses Post-menopausal Cancer Alcohol use Glucose intolerance Thyroid disease Ambulates with cane Arthritis DVT (deep venous thrombosis) Easy bruising Excessive bleeding Migraine headache Injury of head and neck History of IBS Non-smoker CPAP (continuous positive airway pressure) dependence Sleep apnea Leg cramps History of pain when walking History of edema History of echocardiogram Cardiology follow-up encounter History of irregular heartbeat Mitral valve annular calcification Varicose veins of both lower extremities Obesity COVID-19 virus detected (12/02/22) Hiatal hernia Osteoarthritis Restless leg syndrome Chronic pain Arthritis, rheumatoid HARRISON on CPAP Rheumatoid arthritis Anemia Hypothyroid Malignant neoplasm of breast Other and unspecified diseases of upper respiratory tract History of breast cancer Hemoptysis Home Medications ?Medication ?Instructions ?Recorded ?Last Taken ?Type hydroxychloroquine 200 mg tablet 200 mg PO DAILYCM immunosuppresent 07/05/15 07/04/24 History ferrous sulfate 325 mg (65 mg 325 mg PO DAILY 05/28/17 07/04/24 History iron) tablet multivitamin (Multiple Vitamins 1 tab PO DAILY dietary 05/28/17 07/04/24 History tablet) clobetasol 0.05 % topical ointment 1 applic topical DAILY PRN SKIN 05/17/20 Unknown History CONDITION levothyroxine 75 mcg tablet 75 mcg PO DAILY thyroid 05/17/20 07/04/24 History lorazepam 1 mg tablet 0.5 mg PO DAILY PRN Anxiety 05/17/20 07/04/24 History methotrexate sodium 2.5 mg tablet 15 mg PO SHARP immunosuppresent 05/17/20 07/04/24 History nortriptyline 25 mg capsule 25 mg PO QHS nerve pain 07/08/22 07/03/24 History ondansetron HCl 4 mg tablet 4 mg PO Q8H PRN nausea and vomiting 07/08/22 Unknown History [id number] 333 mg-133 4 tab PO DAILY SUPPLEMENT 09/09/22 07/03/24 History mg-5 mg tablet Nebulizer machine #1 ea 12/02/22 Unknown Rx duloxetine 30 mg capsule,delayed 30 mg PO DAILY depression 01/14/23 07/04/24 History release folic acid 1 mg tablet 1 mg PO DAILY dietary supplement 01/14/23 07/04/24 History hydrocodone-acetaminophen 5-325mg 1 tab PO TID PRN pain 01/14/23 07/04/24 History 5mg-325mg gabapentin 300 mg capsule 300 mg PO TIDCM pain 04/22/23 07/04/24 History metoprolol tartrate 25 mg tablet 25 mg PO BID blood pressure #60 04/22/23 07/04/24 Rx tabs furosemide 40 mg tablet 40 mg PO DAILY diuretic #90 tabs 11/19/23 07/04/24 Rx potassium chloride 20 mEq 20 meq PO DAILYCM PRN hypokalemia 02/23/24 Unknown History tablet,extended release(part/cryst) (Klor-Con M) cyclobenzaprine 10 mg tablet 10 mg PO TID PRN muscle spasm 07/04/24 07/04/24 History vitamin B complex (Complex B-100 1 tab PO DAILY 07/04/24 07/04/24 History tablet,extended release) L.acidophil,salivari-Bifido 1 cap PO TID 14 days #42 caps 07/09/24 Unknown Rx bifidum-Strep thermoph 175 mg capsule vancomycin 25 mg/mL oral solution 125 mg PO Q6H 07/14/24 Unknown History (Firvanq) Allergy/AdvReac Type Severity Reaction Status Date / Time doxycycline Allergy Mild Nausea Verified 07/04/24 12:25 enalaprilat (From Vasotec) Allergy Mild Other - Verified 07/04/24 12:25 lightheadedness codeine Allergy Unknown Verified 07/04/24 12:25 midazolam HCl (From Versed) Allergy Anaphylaxis Verified 07/04/24 12:25 morphine AdvReac Nausea/Vom/ Verified 07/04/24 12:25 Diarrhea NSAIDS (Non-Steroidal AdvReac Other Verified 07/04/24 12:25 Anti-Inflamma Family History Mother Diabetes Pancreatic cancer Brother Diabetes Hypertension Seasonal allergies Melanoma Brain cancer Tongue cancer Father Colon cancer Parkinson disease Sister Hypertension Seasonal allergies Uterine cancer Lung cancer Liver cancer Surgical History History of cholecystectomy Hx of cataract surgery History of carpal tunnel release of both wrists Hx of hand surgery History of foot operation Hx of mastectomy (2006) Port-a-cath in place H/O thumb surgery History of appendectomy History of carpal tunnel surgery Hx of cholecystectomy H/O ligation of vein History of modified radical mastectomy H/O vaginal hysterectomy H/O hernia repair History of gastric bypass Social History Smoking Status: Never smoker alcohol intake: current alcohol intake frequency: holidays/special occasions only substance use type: does not use caffeine: Yes Type: carbonated beverages Number of servings: 3 and coffee Number of servings: 2 ROS ROS ED Review of Systems ROS Unobtainable: other Details: Patient is cyanotic respiratory distress only able to answer in syllables or yes no. Constitutional Constitutional ED: Denies chills or fever(s) Eyes Eyes: Denies blurry vision ENT ENT ED: Denies rhinorrhea or sore throat Cardiovascular Cardiovascular: Reports chest pain and orthopnea Respiratory/Chest Respiratory/Chest: Reports dyspnea and orthopnea Gastrointestinal Gastrointestinal: Denies abdominal pain or nausea Integumentary Denies rash Neurologic Neurologic: Denies paresthesias EXAM Physical Exam Const Vital Signs: 07/14/24 10:05 07/14/24 10:05 07/14/24 10:35 Temperature 97.5 F L Temperature Source Temporal Pulse Rate 98 95 Respiratory Rate 36 H 18 Respiratory Effort Short of Breath Labored Accessory Muscle Use Nasal Flaring Pursed Lip Retracting Respiratory Depth Normal Respiratory Pattern Normal Blood Pressure 132/104 H 125/109 H Blood Pressure Mean 113 114 Pulse Ox 75 95 Oxygen Delivery Method Non-Rebreather Room Air Mechanical Ventilator 07/14/24 11:00 07/14/24 11:05 07/14/24 11:30 Temperature 98.6 F Temperature Source Core Pulse Rate 122 H 122 H 127 H Respiratory Rate 20 H 18 16 Respiratory Effort Respiratory Depth Respiratory Pattern Blood Pressure 147/105 H 147/105 H 139/97 H Blood Pressure Mean 119 119 111 Pulse Ox 95 95 96 Oxygen Delivery Method Room Air Mechanical Ventilator Mechanical Ventilator 07/14/24 12:00 Temperature Temperature Source Pulse Rate 125 H Respiratory Rate 25 H Respiratory Effort Respiratory Depth Respiratory Pattern Blood Pressure 129/95 H Blood Pressure Mean 106 Pulse Ox 94 Oxygen Delivery Method Mechanical Ventilator Positive well nourished and well developed Constitutional Narrative: Patient is in obvious respiratory distress with central cyanosis and peripheral cyanosis. Patient's pulse ox in the field was 40% on room air. She did not tolerate CPAP. She is presently on a nonrebreather mask at 15 L. Saturation is in the 80s. General Appearance ED: well developed HEENT normocephalic, atraumatic and cyanosis of lips/distal nose Eyes PERRL and EOMs intact bilaterally General Eye ED: Negative for pale conjunctiva or scleral icterus Neck full ROM, no lymphadenopathy, supple and No no JVD Resp Resp Narrative: Use of accessory muscles. Patient appears to be fatiguing. When asked if she is tiring out she nodded yes. Cardio regular rhythm, S1 normal heart sound, S2 normal heart sound and no murmurs Rate: tachycardic GI non-tender and non-distended Palpation: soft Extremity Extremity Narrative: Peripheral cyanosis. There is no clubbing. There is slight edema noted. Neuro oriented x3 and CN's II-XII intact bilaterally Speech: speech normal Psych Mood & Affect: anxious Skin Skin Narrative: Cyanosis with mottling MDM MDM MDM Narrative Medical decision making narrative: Patient with acute respiratory failure. Suspect patient is in pulmonary edema since she has rales heard throughout. She has a history of congestive heart failure and had orthopnea last evening. Workup included EKG, chest x-ray appropriate blood work. Review of prior records indicates she has history of sarcoidosis. Patient was orotracheal intubated by RSI technique. This was performed by me. She received 20 mg of etomidate and 75 mg of rocuronium. Once the desired effect was achieved she was easily orotracheally debated with a 7.5 endotracheal tube. There was breath sounds noted bilaterally with appropriate color change on the capnometer. Chest x-ray was obtained after NG was placed by me. Chest x-ray reveals the endotracheal tube to be approximately 3 cm above the rafa. The OG is 3 cm inferior the diaphragm. Patient in my opinion he has pulmonary edema/ARDS. Of note when I was bagging the patient it seems that she had stiff lungs. Respiratory therapist stated she was having difficulty ventilating her because of high peak pressures. Because of the amount of drips that were ordered patient needs a central line. This was performed by implied consent. Patient was told that she would be intubated and there would be procedures done prior to chemically paralyzing her. Nurse assisted. Patient was prepped draped sterile manner. The right subclavian vein was scanned excessively on the way in. Using Seldinger technique 7.5 Occitan triple-lumen was placed. Blood was aspirated from all 3 ports. Chest x-ray was obtained to determine placement and evaluate for pneumothorax. Lab Data Attestation: I reviewed the patient's lab results. Lab results narrative: CBC reveals a mild elevated white count. Suspect this is reactive due to the stress hypoxia. Basic metabolic panel is remarked for glucose of 189 with normal CO2 anion gap. First troponin is elevated at 38. CPK is normal. BNP is 5922. Labs: Laboratory Results - last 24 hr 07/14/24 11:00 WBC 13.4 H RBC 3.43 L Hgb 10.4 L Hct 33.1 L MCV 96.5 MCH 30.3 MCHC 31.4 L RDW Std Deviation 46.5 H RDW Coeff of Edilma 13.1 Plt Count 428 MPV 9.5 Immature Gran % (Auto) 0.700 Neut % (Auto) 83.8 H Lymph % (Auto) 6.7 L Schley % (Auto) 8.0 Eos % (Auto) 0.4 Baso % (Auto) 0.4 Absolute Neuts (auto) 11.2 H Absolute Lymphs (auto) 0.90 Nucleated RBC % 0 Sodium 133 Potassium 3.8 Chloride 92 L Carbon Dioxide 28.1 Anion Gap 13 BUN 6 Creatinine 0.53 L Estim Creat Clear Calc 66.91 Est GFR (MDRD) Non-Af 100 BUN/Creatinine Ratio 11.1 Glucose 189 H Calcium 9.0 Total Bilirubin 0.54 AST 36 H ALT 9 Alkaline Phosphatase 152 H Total Creatine Kinase 53 Troponin T High Sens 38 H D NT pro BNP II 5922 H Total Protein 7.1 Albumin 3.1 L Globulin 4.0 Albumin/Globulin Ratio 0.8 L Triglycerides 116 ABG Data ABG results: ABG 07/14/24 11:15 Specimen Type ART Sample Site R Radial pH 7.42 Bicarbonate Actual 32.6 H Total CO2 34 Base Excess 8 H O2 Saturation 94 L O2 % 80.0 ABG pCO2 50.8 H ABG pO2 71 L Respiration Rate 14 O2 Delivery Device Not entered Vent Mode AC Tidal Volume 450.0 Radiography Chest X-Ray - ED: 1 View (To chest x-rays were obtained. They were obtained essentially simultaneously after there was advancement of the NG. The NG noted to be more inferior to the diaphragm. Patient in my opinion has pulmonary edema.) Diagnostic Testing: Clinical Impression(s) from Imaging Studies Chest X-Ray 07/14/24 10:06 IMPRESSION: There is an ET tube in position 2.3 cm above the level of the rafa, deviated towards the right, similar to the prior. There is an enteric tube in the midline at the level of the diaphragm. There is elevation of the right hemidiaphragm. There are diffuse interstitial and alveolar infiltrates throughout the right and left lung. Reading Location: [facility] Chest X-Ray 07/14/24 10:07 IMPRESSION: There is an ET tube in position 3 cm above the level of the rafa, deviated towards the right. There is an enteric tube in the midline 3.5 cm below the level of the rafa, likely in the esophagus. There are diffuse interstitial and alveolar infiltrates throughout the right and left lung. Reading Location: [facility] Management Discussion w/another healthcare provider: Hospitalist (Spoke with Dr. Tim Noble. He will cannot Dr. De La Torre. He question whether this could be a PE. Based on patient's history past history and acute this and radiologic results this her presentation is not consistent with a pulmonary embolus) Treatment and Re-Evaluation Narrative: Access Lead was asked to page hospitalist for admission at 2331. Critical Care Time Critical Care Time: Yes Critical care time (excluding procedures): 30-74 minutes (42), Including time spent: (History, physical, documentation, review of prior records, independent rotation laboratory results and images), Discussing w/Patient &/or Family/Pusher Operator, Discussing w/Consultants (Hospitalist), Performing Direct Patient Care at Bedside (Intubation, central line and the time to complete these test were not included in total critical care time.) and - (EMS since patient was gasping for breath and not able to speak more than 1 syllable at a time) Discharge Plan Dx/Rx/DC Orders Clinical Impression: Acute respiratory failure with hypoxia and hypercapnia, Rheumatoid arthritis, History of breast cancer, Sarcoidosis of lung, Essential hypertension, Pulmonary edema cardiac cause, Elevated troponin, Adult BMI 39.0-39.9 kg/sq m Disposition Disposition: Acute Care Hospital [facility]
[2024-07-14] MEDS: Propofol 10MG/Ml 1,000 MG/100 ML Bottle 5.5 MG CONT INF (11:12)
[2024-07-14 11:18] LABS: Absolute Neutrophil Count 11.2 X10^3/uL (2.0-7.7); Basophil# 0.05 X10^3/uL; Basophil% 0.4 % (0-1); Eosinophil# 0.06 X10^3/uL; Eosinophils% 0.4 % (0-5); Hematocrit 33.1 % (37-47); Hemoglobin 10.4 g/dL (12.0-15.0); Lymphocyte % 6.7 % (19-41); Mean Corp Hgb Conc 31.4 g/dL (32-36); Mean Corpuscular Hgb 30.3 pg (27.0-32.0); Mean Corpuscular Volume 96.5 fL (81-99); Mean Platelet Vol. 9.5 fl (6.2-12.0); Monocyte# 1.07 X10^3/uL; NRBC Flagged by Analyzer 0 % (0-5); Neutrophil # 11.24 X10^3/uL (2.7-7.7); Neutrophil % 83.8 % (47-70); Platelet Count 428 K/mm3 (150-450); RBC Distribution Width CV 13.1 % (11.6-14.6); RBC Distribution Width SD 46.5 fl (35.1-43.9); Red Blood Count 3.43 M/mm3 (4.2-5.4); White Blood Count 13.4 K/mm3 (4.4-11.0)
[2024-07-14 11:20] LABS: Base Excess 8 mmol/L (-2 to +2); Bicarbonate 32.6 mmol/L (22-26); Blood Gas Specimen Type ART; Mode AC; O2 Delivery Device Not entered; PO2 71 mmHG (75-100); RR 14; SITE R Radial; SO2 94 % (95-99); Total Carbon Dioxide 34 mmol/L; pCO2 50.8 mmHg (35-45); pH 7.42 (7.35-7.45)
[2024-07-14 12:25] LABS: Troponin T High Sensitivity 38 ng/L (<=14)
[2024-07-14 12:27] LABS: ALB/GLOB Ratio 0.8 RATIO (0.9-2.4); AST(SGOT) 36 U/L (<=31); Alanine Aminotransfer ALT/SGPT 9 U/L (<=34); Albumin, Serum 3.1 g/dL (3.4-4.8); Alkaline Phosphatase 152 U/L (35-104); Anion Gap 13 (5-15); BUN 6 mg/dL (4-19); BUN/Creat Ratio 11.1 RATIO (10-20); CPK Total, Creatine Kinase 53 U/L (24-195); Carbon Dioxide 28.1 mmol/L (21.0-32.0); Chloride 92 mmol/L (98-108); Creatinine, Serum 0.53 mg/dL (0.70-1.20); EST Glomerular Filtration Rate 100 (>60); Estimated Creatinine Clearance 66.91 ml/min (50-250); Glucose 189 mg/dL (70-99); Potassium 3.8 mmol/L (3.3-5.1); Pro- Brain NATRIURETIC PEPTIDE 5922 pg/mL (<=900); Protein, Total 7.1 g/dL (5.9-8.4); Sodium Level 133 mmol/L (133-145); Total Bilirubin 0.54 mg/dL (0.00-1.30); Triglycerides 116 mg/dL
[2024-07-14 12:43] LABS: Lactic Acid 2.7 mmol/L (0.0-2.0)
[2024-07-14] MEDS: Furosemide 40 MG/4 ML Vial IV ×2 (13:02→21:18)
--- NOTE | 2024-07-14 13:07 | CT_ITS ---
EXAM: CT Angiography Chest Without and With Intravenous Contrast CLINICAL INDICATION: PAST HISTORY OF PE, RESPIRATORY FAILURE TECHNIQUE: Axial computed tomographic angiography images of the chest without and with intravenous contrast. This CT exam was performed using one or more of the following dose reduction techniques: automated exposure control, adjustment of the mA and/or kV according to patient size, and/or use of iterative reconstruction technique. MIP reconstructed images were created and reviewed. COMPARISON: No relevant prior studies available. FINDINGS: PULMONARY ARTERIES: Unremarkable. No pulmonary embolism. AORTA: No acute findings. No thoracic aortic aneurysm. LUNGS AND PLEURAL SPACES: Lung emphysema/COPD with scattered ground-glass attenuation and partial consolidation of both lungs, likely multifocal pneumonia. No significant effusion. HEART: Unremarkable. No cardiomegaly. No significant pericardial effusion. No evidence of RV dysfunction. BONES/JOINTS: No acute fracture. No dislocation. SOFT TISSUES: Unremarkable. LYMPH NODES: Unremarkable. No enlarged lymph nodes. CT/CTA Chest W/WO Contrast IMPRESSION: 1. No pulmonary embolism. 2. Lung emphysema/COPD with scattered ground-glass attenuation and partial con solidation of both lungs, likely multifocal pneumonia. Reading Location: [id number]
--- NOTE | 2024-07-14 13:12 | ED.RN ---
Propofol decreased due to hypotension
--- NOTE | 2024-07-14 13:15 | EX.PCM.CONCC ---
Assessment & Plan Assessment/Plan (1) Acute and chronic respiratory failure with hypoxia: PLAN: Plan RECOMMENDATIONS: 1. Continue assist-control mode of mechanical ventilation. Wean FiO2 and PEEP as tolerated. 2. Initiate vasopressor support, if needed, to maintain mean arterial pressure at or above 65 mmHg. 3. CTA chest is pending. 4. Check procalcitonin, respiratory viral panel and COVID PCR. 5. Obtain urine analysis and blood cultures. 6. Continue propofol and fentanyl for sedation. 7. Start empiric antimicrobials. 8. Initiate appropriate ICU prophylaxis. IMPRESSIONS: 1. Acute on chronic hypoxemic respiratory failure Possibly multifactorial in etiology with decompensated heart failure with preserved ejection fraction along with possible pneumonia contributing. The patient has a baseline oxygen requirement of 4 L/min at home along with a history of sarcoidosis and obstructive sleep apnea. She was emergently intubated in the emergency department. Blood pressures are somewhat tenuous. Therefore, the patient is unlikely to tolerate aggressive diuresis. If her hemodynamic status were to be compromised any further, recommend initiation of Levophed. In the interim, recommend obtaining blood cultures and starting the patient empirically on antimicrobials. CTA chest will be obtained to rule out pulmonary embolism. Lastly, we will plan to check a procalcitonin, respiratory viral panel and COVID PCR. Although the patient's clinical presentation seems most consistent with congestive heart failure, given her recent hospitalization, and the fact that I cannot definitively rule out underlying pneumonia, I am going to place her empirically on antibiotics. 2. History of heart failure with preserved ejection fraction/recent C. difficile colitis/rheumatoid arthritis/anemia/hypothyroidism Complicates care, management, recovery and prognosis. Continue supportive measures as noted above. Tube feeding for nutritional support can be initiated tomorrow. TIME: 34 minutes of critical care time, independent of procedures, was spent addressing the patient's acute on chronic hypoxemic respiratory failure, review of all data and collaboration with the care team. HPI Consult Data Date of Consult: 07/15/24 HPI Narrative Reason for Consultation: Acute on chronic respiratory failure with hypoxemia HPI Narrative: The patient is a 69-year-old female, with a history as outlined below, who presented to the emergency department via EMS on July 14 with worsening shortness of breath. History was obtained primarily from family members at the bedside, as the patient is currently intubated and mechanically ventilated. According to family, the patient has a known history of heart failure with preserved ejection fraction along with chronic hypoxemic respiratory failure with a baseline requirement of 4 L/min. They also reported a remote history of VTE. In addition, they reported that she has underlying obstructive sleep apnea, but does not routinely utilize any form of PAP therapy. The patient was previously under the care of Dr. Valdivia until his departure with documentation of pulmonary sarcoidosis as well. The patient was just admitted to the hospital July 04 through with altered mental status and episodic hypotension in the setting of diarrhea. The patient apparently tested positive for C. difficile and was placed on oral vancomycin. On presentation to the emergency department, the patient was documented to be afebrile, but was notably tachycardic tachypneic. She was emergently intubated. Laboratory evaluation revealed a white blood cell count of 13,000. Arterial blood gas postintubation was notable for a pH of 7.42 with a pCO2 of 51 and pO2 of 71. Chemistry profile was notable for a lactate of 2.7 with a troponin of 38 and BNP of 6000. Diffuse bilateral infiltrates were noted on chest x-ray. Central venous catheter was placed in the emergency department. [facility] Medical History Acute and chronic respiratory failure with hypoxia Sarcoidosis of lung Osteoporosis Pulmonary embolism Congestive heart failure (CHF) Wears partial dentures Wears glasses Post-menopausal Cancer Alcohol use Glucose intolerance Thyroid disease Ambulates with cane Arthritis DVT (deep venous thrombosis) Easy bruising Excessive bleeding Migraine headache Injury of head and neck History of IBS Non-smoker CPAP (continuous positive airway pressure) dependence Sleep apnea Leg cramps History of pain when walking History of edema History of echocardiogram Cardiology follow-up encounter History of irregular heartbeat Mitral valve annular calcification Varicose veins of both lower extremities Obesity COVID-19 virus detected (12/02/22) Hiatal hernia Osteoarthritis Restless leg syndrome Chronic pain Arthritis, rheumatoid HARRISON on CPAP Rheumatoid arthritis Anemia Hypothyroid Malignant neoplasm of breast Other and unspecified diseases of upper respiratory tract History of breast cancer Hemoptysis Home Medications ?Medication ?Instructions ?Recorded ?Last Taken ?Type hydroxychloroquine 200 mg tablet 200 mg PO DAILYCM immunosuppresent 07/05/15 07/04/24 History ferrous sulfate 325 mg (65 mg 325 mg PO DAILY 05/28/17 07/04/24 History iron) tablet multivitamin (Multiple Vitamins 1 tab PO DAILY dietary 05/28/17 07/04/24 History tablet) clobetasol 0.05 % topical ointment 1 applic topical DAILY PRN SKIN 05/17/20 Unknown History CONDITION levothyroxine 75 mcg tablet 75 mcg PO DAILY thyroid 05/17/20 07/04/24 History lorazepam 1 mg tablet 0.5 mg PO DAILY PRN Anxiety 05/17/20 07/04/24 History methotrexate sodium 2.5 mg tablet 15 mg PO SHARP immunosuppresent 05/17/20 07/04/24 History nortriptyline 25 mg capsule 25 mg PO QHS nerve pain 07/08/22 07/03/24 History ondansetron HCl 4 mg tablet 4 mg PO Q8H PRN nausea and vomiting 07/08/22 Unknown History hhczzjn-zjnjcdsgi-pkxb 333 mg-133 4 tab PO DAILY SUPPLEMENT 09/09/22 07/03/24 History mg-5 mg tablet Nebulizer machine #1 ea 12/02/22 Unknown Rx duloxetine 30 mg capsule,delayed 30 mg PO DAILY depression 01/14/23 07/04/24 History release folic acid 1 mg tablet 1 mg PO DAILY dietary supplement 01/14/23 07/04/24 History hydrocodone-acetaminophen 5-325mg 1 tab PO TID PRN pain 01/14/23 07/04/24 History 5mg-325mg gabapentin 300 mg capsule 300 mg PO TIDCM pain 04/22/23 07/04/24 History metoprolol tartrate 25 mg tablet 25 mg PO BID blood pressure #60 04/22/23 07/04/24 Rx tabs furosemide 40 mg tablet 40 mg PO DAILY diuretic #90 tabs 11/19/23 07/04/24 Rx potassium chloride 20 mEq 20 meq PO DAILYCM PRN hypokalemia 02/23/24 Unknown History tablet,extended release(part/cryst) (Klor-Con M) cyclobenzaprine 10 mg tablet 10 mg PO TID PRN muscle spasm 07/04/24 07/04/24 History vitamin B complex (Complex B-100 1 tab PO DAILY 07/04/24 07/04/24 History tablet,extended release) L.acidophil,salivari-Bifido 1 cap PO TID 14 days #42 caps 07/09/24 Unknown Rx bifidum-Strep thermoph 175 mg capsule vancomycin 25 mg/mL oral solution 125 mg PO Q6H 07/14/24 Unknown History (Firvanq) Allergy/AdvReac Type Severity Reaction Status Date / Time doxycycline Allergy Mild Nausea Verified 07/04/24 12:25 enalaprilat (From Vasotec) Allergy Mild Other - Verified 07/04/24 12:25 lightheadedness codeine Allergy Unknown Verified 07/04/24 12:25 midazolam HCl (From Versed) Allergy Anaphylaxis Verified 07/04/24 12:25 morphine AdvReac Nausea/Vom/ Verified 07/04/24 12:25 Diarrhea NSAIDS (Non-Steroidal AdvReac Other Verified 07/04/24 12:25 Anti-Inflamma Family History Mother Diabetes Pancreatic cancer Brother Diabetes Hypertension Seasonal allergies Melanoma Brain cancer Tongue cancer Father Colon cancer Parkinson disease Sister Hypertension Seasonal allergies Uterine cancer Lung cancer Liver cancer Surgical History History of cholecystectomy Hx of cataract surgery History of carpal tunnel release of both wrists Hx of hand surgery History of foot operation Hx of mastectomy (2006) Port-a-cath in place H/O thumb surgery History of appendectomy History of carpal tunnel surgery Hx of cholecystectomy H/O ligation of vein History of modified radical mastectomy H/O vaginal hysterectomy H/O hernia repair History of gastric bypass Social History Smoking Status: Never smoker alcohol intake: current alcohol intake frequency: holidays/special occasions only substance use type: does not use caffeine: Yes Type: carbonated beverages Number of servings: 3 and coffee Number of servings: 2 ROS Review of Systems ROS Unobtainable: due to endotracheal tube Physical Exam Const Constitutional Narrative: Intubated, sedated and mechanically ventilated. Family is present at the bedside. HEENT normocephalic and head/scalp atraumatic Mouth: endotracheal tube in place and OG tube in place Eyes PERRL and EOMs intact bilaterally Neck supple General: trachea midline and CVC in place Chest inspection of chest normal Resp Auscultation: diminished lung sounds Cardio regular rate and regular rhythm GI normal to inspection, nondistended, normoactive bowel sounds Extremity no clubbing, cyanosis or edema Skin no rashes or lesions noted Neuro Sensorium / Orientation: sedated on vent Lab / Micro Data 07/15/24 03:40 07/15/24 03:40 Labs: Laboratory Results - last 24 hr 07/14/24 11:00: WBC 13.4 H, RBC 3.43 L, Hgb 10.4 L, Hct 33.1 L, MCV 96.5, MCH 30.3, MCHC 31.4 L, RDW Std Deviation 46.5 H, RDW Coeff of Edilma 13.1, Plt Count 428, MPV 9.5, Immature Gran % (Auto) 0.700, Neut % (Auto) 83.8 H, Lymph % (Auto) 6.7 L, Elk % (Auto) 8.0, Eos % (Auto) 0.4, Baso % (Auto) 0.4, Absolute Neuts (auto) 11.2 H, Absolute Lymphs (auto) 0.90, Nucleated RBC % 0, Sodium 133, Potassium 3.8, Chloride 92 L, Carbon Dioxide 28.1, Anion Gap 13, BUN 6, Creatinine 0.53 L, Estim Creat Clear Calc 66.91, Est GFR (MDRD) Non-Af 100, BUN/Creatinine Ratio 11.1, Glucose 189 H, Lactic Acid 2.7 H*, Calcium 9.0, Total Bilirubin 0.54, AST 36 H, ALT 9, Alkaline Phosphatase 152 H, Total Creatine Kinase 53, Troponin T High Sens 38 H D, NT pro BNP II 5922 H, Total Protein 7.1, Albumin 3.1 L, Globulin 4.0, Albumin/Globulin Ratio 0.8 L, Triglycerides 116 ABG Data ABG results: ABG 07/14/24 11:15 Specimen Type ART Sample Site R Radial pH 7.42 Bicarbonate Actual 32.6 H Total CO2 34 Base Excess 8 H O2 Saturation 94 L O2 % 80.0 ABG pCO2 50.8 H ABG pO2 71 L Respiration Rate 14 O2 Delivery Device Not entered Vent Mode AC Tidal Volume 450.0 Imaging Radiology Impression Chest X-Ray 07/14/24 10:06 IMPRESSION: There is an ET tube in position 2.3 cm above the level of the rafa, deviated towards the right, similar to the prior. There is an enteric tube in the midline at the level of the diaphragm. There is elevation of the right hemidiaphragm. There are diffuse interstitial and alveolar infiltrates throughout the right and left lung. [facility] Chest X-Ray 07/14/24 10:07 IMPRESSION: There is an ET tube in position 3 cm above the level of the rafa, deviated towards the right. There is an enteric tube in the midline 3.5 cm below the level of the rafa, likely in the esophagus. There are diffuse interstitial and alveolar infiltrates throughout the right and left lung. Reading [facility] Sepsis Attestation Sepsis Alert: Yes Sepsis Attestation: Agree w/Sepsis Date exam was performed: 07/14/24 Time exam was performed: 13:51 Possible Source of Sepsis: Pulmonary Sepsis Organ Dysfunction Criteria Present: Acute Respiratory Failure (New need for BiPAP/CPAP or MV) and Lactic Acid > 2 mmol/L Fluid Resuscitation Fluid Resuscitation ordered: Fluids not indicated Reason for lesser fluid bolus:: Concern for fluid overload and Heart failure Charges/Coding Procedures Hospitalists Procedures: 25418 Critical Care 1st Hr
[2024-07-14] MEDS: Norepinephrine Bit/0.9% NaCl 8 MG/250 ML IV.SOLN 9.4 MG CONT INF (13:21)
[2024-07-14 13:56] LABS: Troponin T High Sens 2 HR 87 ng/L (<=14)
--- NOTE | 2024-07-14 13:56 | ECHOL_ITS ---
Reason For Study Reason For Study: CHF Procedure This was a 2D Doppler, Color Flow transthoracic echocardiogram. The study was technically difficult. PT is on ventilator. Contrast injection was performed. Exam performed portable in ICU/CCU. Left Ventricle Normal LV size. The left ventricular ejection fraction is 15 %. Infero-Basal: Normal. Posterior-Basal: Normal. The rest of the wall segments are hypokinetic. Right Ventricle Normal RV size. Normal systolic function. Atria The left atrium is moderately enlarged. Normal right atrium. Mitral Valve There is moderate mitral annular calcification. Aortic Valve Trisinus/trileaflet aortic valve. Mild focal aortic valve calcification. Pulmonic Valve The pulmonic valve is not well visualized. Great Vessels Mildly calcified aortic root. Pericardium/Pleural No pericardial effusion. Medication Diluted definity 2.0ml given slow IV push to enhance endocardial definition. MMode/2D Measurements & Calculations LVIDd: 4.0 cm IVSd: 0.87 cm Ao root diam: 3.0 cm LVIDs: 2.8 cm LVPWd: 0.79 cm FS: 30.5 % LAV(MOD-sp4): 74.8 ml LVAd ap4: 29.8 cm2 LVAd ap2: 26.8 cm2 LVLd ap4: 8.0 cm LVLd ap2: 8.1 cm EDV(MOD-sp4): 88.7 ml EDV(MOD-sp2): 71.4 ml EDV(sp4-el): 94.0 ml EDV(sp2-el): 75.2 ml LVAs ap4: 26.0 cm2 LVAs ap2: 23.2 cm2 LVLs ap4: 7.7 cm LVLs ap2: 7.8 cm ESV(MOD-sp4): 71.5 ml ESV(MOD-sp2): 56.0 ml ESV(sp4-el): 74.3 ml ESV(sp2-el): 58.3 ml EF(MOD-sp4): 19.3 % EF(MOD-sp2): 21.6 % EF(sp4-el): 20.9 % SV(MOD-sp4): 17.2 ml SV(MOD-sp2): 15.4 ml SV(sp4-el): 19.6 ml SI(MOD-sp4): 9.3 ml/m2 SI(MOD-sp2): 8.3 ml/m2 LA A4 area: 25.2 cm2 LA dimension(2D): 5.8 cm RA A4 area: 7.5 cm2 ECHO/Echo Limited w/Contrast Interpretation Summary The left ventricular ejection fraction is 15 %. The left atrium is moderately enlarged. Normal LV size. Compared to previous study, the left ventricular systolic function has worsened .. Ordering Physician: Dallin Joe Referring Physician: Baldomero Wright Performed By: Meredith Apodaca RDCS, RVT
[2024-07-14] MEDS: Heparin Injection (Vial) 5,000 UNIT/ML VIAL 5000 UNIT SC ×2 (14:57→21:31)
[2024-07-14] MEDS: Piperacil/Tazobactam 3.375 GM in 0.9% Normal Saline (50mL MB+) 50 ML IV ×2 (14:57→21:18)
[2024-07-14 15:13] LABS: Reflex Lactate? Y
[2024-07-14 15:21] LABS: Procalcitonin 0.14 ng/mL (<=0.10)
[2024-07-14] MEDS: Acetaminophen 650 MG/20 ML UDC GT (15:33)
[2024-07-14 15:41] LABS: Bacteria 0 SEEN /hpf (None Seen); Mucous, Urine 0 SEEN /hpf (<or=2+)
[2024-07-14 15:54] LABS: Color, Urine Straw (Yellow); Glucose, Dipstick Normal (Normal); Ketone-Dipstick Negative (Negative); Leukocyte Esterase-Dipstick Negative /ul (Negative); Nitrite-Dipstick Negative (Negative); Occult Blood-Urine 50 /ul (Negative); Protein-Dipstick 30 mg/dl (Negative); Specific Gravity, Urine 1.015 (1.002-1.030); Urine Bilirubin Dipstick Negative (Negative); Urine Clarity Clear (Clear); Urine Urobilinogen Normal (Normal)
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
[2024-07-14 16:14] LABS: Lactic Acid 1.8 mmol/L (0.0-2.0); Troponin T High Sens 4 HR 151 ng/L (<=14)
--- NOTE | 2024-07-14 16:20 | NURSING ---
Dr. De La Torre aware of BPs and lactic. Patient has history of CHF, levophed already started.
[2024-07-14 16:31] LABS: White Blood Cells 0-5 SEEN /hpf (0-5)
[2024-07-14 16:32] LABS: Hyaline Cast 0-5 SEEN /lpf (0-5); Red Blood Cells-Urine 0-5 SEEN /hpf (0-5); Squamous Epithelial Cells - UA 0-5 SEEN /hpf (5-10)
[2024-07-14 16:35] LABS: Fine Granular Cast- Urine 0-5 SEEN /lpf (0-5)
[2024-07-14] MEDS: Vancomycin 125 MG/5 ML Susp PO.SYRINGE PO (18:18)
--- NOTE | 2024-07-14 18:28 | HP.PCM.HOS_ITS ---
HPI - General General Date of Admission: 07/14/24 Date of Service: 07/14/24 Chief Complaint: Shortness of breath HPI Narrative NEHAL ELIOZNDO, is a 69 F who presents to the emergency room at [facility] with complaints of shortness of breath which had started yesterday (last night) and had worsened. According to the ER documentation, patient denied cough and sputum production. She denied pain with respirations. Due to dyspnea, patient was cyanotic and in respiratory distress and was only able to answer yes or no. Patient's pulse ox in the field was 40% on room air, she was intolerant of CPAP in the emergency room and was on nonrebreather mask at 15 L but her saturation was only in the 80s. Decision was made to intubate the patient and a central line was placed. Patient was placed initially on IV nitroglycerin, chest x-ray was obtained and revealed bilateral pulmonary infiltrates suggestive of edema/pneumonia. Lab obtained showed an elevated white blood cell count of 13.4, chemistry profile was unremarkable except for a glucose of 189, lactic acid was 2.7, troponins were 38, 87, and 151. Probated natruretic peptide was 5922. Case was discussed with cardiology as well as critical care, patient was admitted to ICU in serious condition-diagnosis appears to be congestive heart failure and sepsis secondary to pneumonia, patient was started on Zosyn and will be placed on IV Lasix. [facility] Medical History Acute and chronic respiratory failure with hypoxia Sarcoidosis of lung Osteoporosis Pulmonary embolism Congestive heart failure (CHF) Wears partial dentures Wears glasses Post-menopausal Cancer Alcohol use Glucose intolerance Thyroid disease Ambulates with cane Arthritis DVT (deep venous thrombosis) Easy bruising Excessive bleeding Migraine headache Injury of head and neck History of IBS Non-smoker CPAP (continuous positive airway pressure) dependence Sleep apnea Leg cramps History of pain when walking History of edema History of echocardiogram Cardiology follow-up encounter History of irregular heartbeat Mitral valve annular calcification Varicose veins of both lower extremities Obesity COVID-19 virus detected (12/02/22) Hiatal hernia Osteoarthritis Restless leg syndrome Chronic pain Arthritis, rheumatoid HARRISON on CPAP Rheumatoid arthritis Anemia Hypothyroid Malignant neoplasm of breast Other and unspecified diseases of upper respiratory tract History of breast cancer Hemoptysis Home Medications ?Medication ?Instructions ?Recorded ?Last Taken ?Type hydroxychloroquine 200 mg tablet 200 mg PO DAILYCM imm unosuppresent 07/05/15 07/04/24 History ferrous sulfate 325 mg (65 mg 325 mg PO DAILY 05/28/17 07/04/24 History iron) tablet multivitamin (Multiple Vitamins 1 tab PO DAILY dietary 05/28/17 07/04/24 History tablet) clobetasol 0.05 % topical ointment 1 applic topical DA EMPERATRIZ PRN SKIN 05/17/20 Unknown History CONDITION levothyroxine 75 mcg tablet 75 mcg PO DAILY thyroid 07/04/24 History lorazepam 1 mg tablet 0.5 mg PO DAILY PRN Anxiety 05/17/20 07/04/24 History methotrexate sodium 2.5 mg tablet 15 mg PO SHARP immunosu ppresent 05/17/20 07/04/24 History nortriptyline 25 mg capsule 25 mg PO QHS nerve pain 07/03/24 History ondansetron HCl 4 mg tablet 4 mg PO Q8H PRN nausea and vomiting 07/08/22 Unknown History jsdyhta-jecuklnqe-qvzc 333 mg-133 4 tab PO DAILY SUPPL EMENT 09/09/22 07/03/24 History mg-5 mg tablet Nebulizer machine #1 ea 12/02/22 Unknown Rx duloxetine 30 mg capsule,delayed 30 mg PO DAILY depres alfred 01/14/23 07/04/24 History release folic acid 1 mg tablet 1 mg PO DAILY dietary supple ment 01/14/23 07/04/24 History hydrocodone-acetaminophen 5-325mg 1 tab PO TID PRN vita n 01/14/23 07/04/24 History 5mg-325mg gabapentin 300 mg capsule 300 mg PO TIDCM pain 4 07/04/24 History metoprolol tartrate 25 mg tablet 25 mg PO BID blood pr essure #60 04/22/23 07/04/24 Rx tabs furosemide 40 mg tablet 40 mg PO DAILY diuretic #90 tabs 11/19/23 07/04/24 Rx potassium chloride 20 mEq 20 meq PO DAILYCM PRN hypoka lemia 02/23/24 Unknown History tablet,extended release(part/cryst) (Klor-Con M) cyclobenzaprine 10 mg tablet 10 mg PO TID PRN muscle s pasm 07/04/24 07/04/24 History vitamin B complex (Complex B-100 1 tab PO DAILY 07/04/24 History tablet,extended release) L.acidophil,salivari-Bifido 1 cap PO TID 14 days #42 c aps 07/09/24 Unknown Rx bifidum-Strep thermoph 175 mg capsule vancomycin 25 mg/mL oral solution 125 mg PO Q6H Unknown History (Firvanq) Allergy/AdvReac Type Severity Reaction Status Date / Time doxycycline Allergy Mild Nausea Verified 07/04/24 12:25 enalaprilat (From Vasotec) Allergy Mild Other - Verified 07/04/24 12:25 lightheadedness codeine Allergy Unknown Verified 07/04/24 12:25 midazolam HCl (From Versed) Allergy Anaphylaxis Verified 07/04/24 12:25 morphine AdvReac Nausea/Vom/ Verified 07/04/24 12:25 Diarrhea NSAIDS (Non-Steroidal AdvReac Other Verified 07/04/24 12:25 Anti-Inflamma Family History Mother Diabetes Pancreatic cancer Brother Diabetes Hypertension Seasonal allergies Melanoma Brain cancer Tongue cancer Father Colon cancer Parkinson disease Sister Hypertension Seasonal allergies Uterine cancer Lung cancer Liver cancer Surgical History History of cholecystectomy Hx of cataract surgery History of carpal tunnel release of both wrists Hx of hand surgery History of foot operation Hx of mastectomy (2006) Port-a-cath in place H/O thumb surgery History of appendectomy History of carpal tunnel surgery Hx of cholecystectomy H/O ligation of vein History of modified radical mastectomy H/O vaginal hysterectomy H/O hernia repair History of gastric bypass Social History Smoking Status: Never smoker alcohol intake: current alcohol intake frequency: holidays/special occasions only substance use type: does not use caffeine: Yes Type: carbonated beverages Number of servings: 3 and coffee Number of servings: 2 ROS Review of Systems ROS Unobtainable: due to endotracheal tube Vital Signs Vital Signs Vital Signs: 07/14/24 10:05 07/14/24 10:05 07/14/24 10:30 Temperature 97.5 F L Temperature Source Temporal Pulse Rate 98 125 H Respiratory Rate 36 H 14 Respiratory Effort Short of Breath Labored Accessory Muscle Use Nasal Flaring Pursed Lip Retracting Respiratory Depth Normal Respiratory Pattern Normal Normal Blood Pressure 132/104 H Blood Pressure Mean 113 Pulse Ox 75 97 Oxygen Delivery Method Non-Rebreather Room Air Fraction of Inspired Oxygen (FIO2) 100 07/14/24 10:35 07/14/24 11:00 07/14/24 11:05 Temperature 98.6 F Temperature Source Core Pulse Rate 95 122 H 122 H Respiratory Rate 18 20 H 18 Respiratory Effort Respiratory Depth Respiratory Pattern Blood Pressure 125/109 H 147/105 H 147/105 H Blood Pressure Mean 114 119 119 Pulse Ox 95 95 95 Oxygen Delivery Method Mechanical Ventilator Room Air Mechanical Ventilator Fraction of Inspired Oxygen (FIO2) 07/14/24 11:30 07/14/24 12:00 07/14/24 12:35 Temperature Temperature Source Pulse Rate 127 H 125 H 126 H Respiratory Rate 16 25 H 31 H Respiratory Effort Respiratory Depth Respiratory Pattern Blood Pressure 139/97 H 129/95 H 136/87 H Blood Pressure Mean 111 106 103 Pulse Ox 96 94 91 Oxygen Delivery Method Mechanical Ventilator Mechanical Ventilator Mechanical Ventilator Fraction of Inspired Oxygen (FIO2) 07/14/24 12:45 07/14/24 12:51 07/14/24 13:00 Temperature 97.8 F Temperature Source Pulse Rate 117 H 20 L 100 Respiratory Rate 14 19 H 14 Respiratory Effort Respiratory Depth Respiratory Pattern Normal Blood Pressure 134/79 H 72/62 L Blood Pressure Mean 97 65 Pulse Ox 92 91 92 Oxygen Delivery Method Mechanical Ventilator Fraction of Inspired Oxygen (FIO2) 100 07/14/24 13:22 07/14/24 13:30 07/14/24 14:00 Temperature Temperature Source Pulse Rate 104 H Respiratory Rate 14 18 Respiratory Effort Mechanically Ventilated Respiratory Depth Normal Respiratory Pattern Tachypnea Blood Pressure 99/79 Blood Pressure Mean 85 Pulse Ox 93 Oxygen Delivery Method Mechanical Ventilator Mechanical Ventilator Fraction of Inspired Oxygen (FIO2) 100 100 07/14/24 16:00 07/14/24 16:05 Temperature Temperature Source Pulse Rate 107 H Respiratory Rate 14 Respiratory Effort Mechanically Ventilated Respiratory Depth Normal Respiratory Pattern Tachypnea Normal Blood Pressure Blood Pressure Mean Pulse Ox 94 Oxygen Delivery Method Mechanical Ventilator Fraction of Inspired Oxygen (FIO2) 100 100 Weight Weight: 83.3 kg Body Mass Index (BMI) 31.5 Physical Exam Const Constitutional Narrative: Patient is lightly sedated on the ventilator at this time, she does not her head to some questions from nursing. General Appearance: well kempt and well developed HEENT normocephalic, head/scalp atraumatic and moist oral mucous membranes Eyes conjunctivae normal Neck no JVD and thyroid normal General: trachea midline Resp Resp Narrative: Patient is on the ventilator currently, lung sounds are diminished bilaterally Auscultation: Negative for rales, rhonchi or wheezes Cardio regular rate, regular rhythm, S1 normal heart sound, S2 normal heart sound, no murmurs, no rub and no gallops GI normal to inspection, nondistended, normoactive bowel sounds, soft to palpation, non-tender and non-distended Extremity no clubbing, cyanosis or edema Skin no rashes or lesions noted General Skin Exam: no breakdown Neuro Neuro Narrative: Patient is sedated and on the ventilator Psych Psych Narrative: Patient is sedated and on the ventilator Results Lab / Micro Data 07/14/24 11:00 07/14/24 11:00 Labs: Laboratory Results - last 24 hr 07/14/24 11:00: WBC 13.4 H, RBC 3.43 L, Hgb 10.4 L, Hct 33.1 L, MCV 96.5, MCH 30.3, MCHC 31.4 L, RDW Std Deviation 46.5 H, RDW Coeff of Edilma 13.1, Plt Count 428, MPV 9.5, Immature Gran % (Auto) 0.700, Neut % (Auto) 83.8 H, Lymph % (Auto) 6.7 L, Hendricks % (Auto) 8.0, Eos % (Auto) 0.4, Baso % (Auto) 0.4, Absolute Neuts (auto) 11.2 H, Absolute Lymphs (auto) 0.90, Nucleated RBC % 0, Sodium 133, Potassium 3.8, Chloride 92 L, Carbon Dioxide 28.1, Anion Gap 13, BUN 6, C reatinine 0.53 L, Estim Creat Clear Calc 66.91, Est GFR (MDRD) Non-Af 100, BUN/Creatinine Ratio 11.1, Glucose 189 H, Lactic Acid 2.7 H*, Calcium 9.0, Total Bilirubin 0.54, AST 36 H, ALT 9, Alkaline Phosphatase 152 H, Total Creatine Kinase 53, Troponin T High Sens 38 H D, NT pro BNP II 5922 H, Total Protein 7.1, Albumin 3.1 L, Globulin 4.0, Albumin/Globulin Ratio 0.8 L, Triglycerides 116 07/14/24 12:59: Troponin T Hi Sens 2 Hr 87 H* 07/14/24 14:05: Procalcitonin 0.14 H 07/14/24 15:25: Lactic Acid 1.8, Troponin T Hi Sens 4Hr 151 H*, Urine Color Straw, Urine Clarity Clear, Urine pH 6.0, Ur Specific [place] 1.015, Urine Protein 30 H, Urine Glucose (UA) Normal, Urine Ketones Negative, Urine Occult Blood 50 H, Urine Nitrite Negative, Urine Bilirubin Negative, Urine Urobilinogen Normal, Ur Leukocyte Esterase Negative, Urine RBC 0-5 SEEN, Urine WBC 0-5 SEEN, Ur Squamous Epith Cells 0-5 SEEN, Urine Bacteria 0 SEEN, Hyaline Casts 0-5 SEEN, Fine Granular Casts 0-5 SEEN, Urine Mucus 0 SEEN Micro: Microbiology 07/14/24 13:45 Mucosa - Nasopharyngeal Coronavirus COVID-19 PCR - Final 07/14/24 13:45 Mucosa - Nasopharyngeal Respiratory Panel (PCR) - Final ABG Data ABG results: ABG 07/14/24 11:15 Specimen Type ART Sample Site R Radial pH 7.42 Bicarbonate Actual 32.6 H Total CO2 34 Base Excess 8 H O2 Saturation 94 L O2 % 80.0 ABG pCO2 50.8 H ABG pO2 71 L Respiration Rate 14 O2 Delivery Device Not entered Vent Mode AC Tidal Volume 450.0 Rhythm Strip Rhythm Strip: Sinus Rhythm Rate: 100 Imaging Radiology Impression Chest X-Ray 07/14/24 10:06 IMPRESSION: There is an ET tube in position 2.3 cm above the level of the rafa, deviated towards the right, similar to the prior. There is an enteric tube in the midline at the level of the diaphragm. There is elevation of the right hemidiaphragm. There are diffuse interstitial and alveolar infiltrates throughout the right and left lung. Reading [facility] Chest X-Ray 07/14/24 10:07 IMPRESSION: There is an ET tube in position 3 cm above the level of the rafa, deviated towards the right. There is an enteric tube in the midline 3.5 cm below the level of the rafa, likely in the esophagus. There are diffuse interstitial and alveolar infiltrates throughout the right and left lung. Reading Location: [facility] Chest CTA 07/14/24 13:07 IMPRESSION: 1. No pulmonary embolism. 2. Lung emphysema/COPD with scattered ground-glass attenuation and partial consolidation of both lungs, likely multifocal pneumonia. Reading Location: [id number] Echocardiogram 07/14/24 13:56 Interpretation Summary The left ventricular ejection fraction is 15 %. The left atrium is moderately enlarged. Normal LV size. Compared to previous study, the left ventricular systolic function has worsened.. Ordering Physician: Dallin Joe Referring Physician: Baldomero Wright Performed By: Meredith Apodaca, JANUSZ, RVT Assessment & Plan Assessment/Plan (1) Acute respiratory failure with hypoxia and hypercapnia: PLAN: Plan 1. Acute on chronic combined respiratory failure secondary to suspected pneumonia with sepsis and congestive heart failure with preserved ejection fraction-patient was admitted to ICU, she will receive IV Lasix and be seen in consultation by cardiology and critical care, ventilator care per critical care. Patient does use home oxygen. Patient will undergo CTA of the chest due to her past history of pulmonary embolism. #2 acute on chronic diastolic congestive heart failure-patient will undergo an echocardiogram be seen by cardiology, she is presently receiving IV Lasix #3 septic shock secondary to bilateral pneumonia-after patient reached the unit, she spiked a temperature, she is currently on Zosyn, blood cultures were obtained and sputum cultures were obtained. Patient is on a pressor agent at the present time. #4 acute C. difficile infection-patient was recently diagnosed with C. difficile infection, her toxin was negative but her antigen was positive but she was having diarrhea symptoms and abdominal discomfort. Patient was placed on vancomycin at that time and she remains on vancomycin liquid through the NG tube at this time #5 obstructive sleep apnea-complicates care, management, recovery, and prognosis #6 hypothyroidism-patient is currently on Synthroid #7 type 2 diabetes-blood sugars will be monitored, sliding scale insulin will be administered as needed #8 sarcoidosis-complicates care, management, recovery, and prognosis, patient's methotrexate will be held at this time Total clinical time spent by myself addressing patient's medical issues, reviewing all of her data, and collaborating with patient's care team: 75 minutes Charges/Coding Visit Charges Inpatient E&M: 79525 Init Hosp L3
[2024-07-14] MEDS: DOBUTamine IV 500 MG in Dextrose 5%-Water (250mL Bag) 210 ML 12.5 MG IV (18:52)
[2024-07-14] MEDS: Pantoprazole Sodium 40 MG in 0.9% Normal Saline (100mL MB+) 100 ML 330 MG IV (21:17)
[2024-07-14] MEDS: Nortriptyline 25 MG Capsule PO (21:18)
[2024-07-14] MEDS: Propofol 10MG/Ml 1,000 MG/100 ML Bottle 8.2 MG CONT INF (21:40)
[2024-07-14] MEDS: Chlorhexidine 15 ML PO (21:50)
[2024-07-14] MEDS: fentaNYL drip 100 ML 15 MCG CONT INF (22:38)
--- NOTE | 2024-07-14 22:59 | EKG12_ITS ---
Test Reason : tachycardia Blood Pressure : */* mmHG Vent. Rate : 133 BPM Atrial Rate : 133 BPM P-R Int : 192 ms QRS Dur : 96 ms QT Int : 366 ms P-R-T Axes : 52 -74 26 degrees QTcB Int : 544 ms Sinus tachycardia with Premature supraventricular complexes Left axis deviation Inferior infarct , age undetermined Possible Anterolateral infarct , age undetermined Abnormal ECG When compared with ECG of 14-Jul-2024 22:57, MANUAL COMPARISON REQUIRED DATA IS UNCONFIRMED Confirmed by SHARAD MCCABE, TOSIN ([id number]), news video editor SARA FORREST ([id number]) on 07/19/2024 11:51:11 AM Referred By: Confirmed By: TOSIN OROURKE MD
[2024-07-15] VITALS (88 sets, daily range): BP systolic 57–196; BP diastolic 28–177; PULSE 120–164; RESP 14–30; TEMP 37.8–39.6; O2SAT 90–98; BMI 33.4
[2024-07-15] MEDS: Vancomycin 125 MG/5 ML Susp PO.SYRINGE PO ×5 (00:50→23:51)
[2024-07-15] MEDS: Acetaminophen 650 MG/20 ML UDC GT ×2 (00:50→11:42)
--- NOTE | 2024-07-15 01:20 | RAD_ITS ---
PROCEDURE: ABDOMEN SINGLE VIEW (PORTABLE) 07/15/2024 REASON FOR EXAM: OGT REPOSITIONING TECHNIQUE: Single view abdomen. 3 separate images FINDINGS: Image labeled S1 at 01:18 the nasogastric tube is kinked back upon itself at the side port above the left hemidiaphragm possibly within a hiatal hernia. Imaged labeled S2 at 01:25 nasogastric tube has been retracted with the side port and tip remaining above the left hemidiaphragm. Image labeled as 3 at 01:31 nasogastric tube has been further retracted with side port now at the mid to distal esophagus and tip directed caudally within the distal esophagus still above the left hemidiaphragm. RAD/Abdomen Single View (Portable) IMPRESSION: 3 separate images as above. Reading Location: [id number]
--- NOTE | 2024-07-15 01:45 | NURSING ---
Attempted to advance OG tube, was able to advance it several centimeters further. KUB obtained, but OG had just bent backwards in esophagus. OG replaced and it still was coiled at the obstruction in the esophagus so it was pulled back a bit to where it had been previously.
[2024-07-15] MEDS: Norepinephrine 8 mg/250 mL 0.9% NS 37.5 MG CONT INF (02:46)
[2024-07-15 04:01] LABS: Absolute Lymphocyte Count 0.48 X10^3/uL (0.83-4.51); Absolute Neutrophil Count 13.5 X10^3/uL (2.0-7.7); Basophil# 0.07 X10^3/uL; Basophil% 0.5 % (0-1); Hematocrit 31.1 % (37-47); Hemoglobin 10.1 g/dL (12.0-15.0); Lymphocyte # 0.48 X10^3/ul (0.83-4.51); Lymphocyte % 3.1 % (19-41); Mean Corp Hgb Conc 32.5 g/dL (32-36); Mean Corpuscular Volume 95.4 fL (81-99); Mean Platelet Vol. 9.4 fl (6.2-12.0); Monocyte# 1.37 X10^3/uL; Monocyte% 8.8 % (0-10); NRBC Flagged by Analyzer 0 % (0-5); POSITIVE DIFFERENTIAL YES; Platelet Count 356 K/mm3 (150-450); RBC Distribution Width CV 13.3 % (11.6-14.6); RBC Distribution Width SD 46.5 fl (35.1-43.9); Red Blood Count 3.26 M/mm3 (4.2-5.4); White Blood Count 15.5 K/mm3 (4.4-11.0)
[2024-07-15 04:29] LABS: Anion Gap 13 (5-15); BUN 7 mg/dL (4-19); BUN/Creat Ratio 9.8 RATIO (10-20); Calcium,Total 8.4 mg/dL (7.6-11.0); Carbon Dioxide 29.7 mmol/L (21.0-32.0); Chloride 94 mmol/L (98-108); Creatinine, Serum 0.68 mg/dL (0.70-1.20); EST Glomerular Filtration Rate 94 (>60); Glucose 159 mg/dL (70-99); Potassium 3.2 mmol/L (3.3-5.1); Sodium Level 136 mmol/L (133-145)
[2024-07-15] MEDS: Furosemide 40 MG/4 ML Vial IV (05:15)
[2024-07-15] MEDS: Heparin Injection (Vial) 5,000 UNIT/ML VIAL 5000 UNIT SC ×3 (05:15→20:30)
[2024-07-15] MEDS: Levothyroxine 75 MCG Tablet PO (05:16)
[2024-07-15] MEDS: CHLORHEXIDINE GLUC 2% CLOTH 1 EACH TOWELETTE TOPICAL (05:16)
[2024-07-15] MEDS: Piperacil/Tazobactam 3.375 GM in 0.9% Normal Saline (50mL MB+) 50 ML IV ×3 (05:16→22:14)
[2024-07-15] MEDS: 0.9% Saline Lock 10 ML Syringe IV ×3 (05:19→23:01)
[2024-07-15] MEDS: TITRATION PARAMETER CHANGE 1 EACH IV ×3 (05:26→10:31)
[2024-07-15] MEDS: fentaNYL drip 100 ML 15 MCG CONT INF (05:49)
[2024-07-15] MEDS: Hydroxychloroquine 200 MG Tablet PO (07:39)
[2024-07-15] MEDS: Pantoprazole Sodium 40 MG in 0.9% Normal Saline (100mL MB+) 100 ML 330 MG IV (07:39)
--- NOTE | 2024-07-15 07:39 | PCM.PN.INT ---
Assessment & Plan Assessment/Plan (1) Acute and chronic respiratory failure with hypoxia: PLAN: Plan RECOMMENDATIONS: 1. Continue assist-control mode of mechanical ventilation. Wean FiO2 and PEEP as tolerated. 2. Continue vasopressor support to maintain mean arterial pressure at or above 65 mmHg. 3. Attempt to transduce CVP. 4. Start phenylephrine for Levophed sparing, given tachycardia. 5. Hold on initiating tube feeding given difficulty with OG tube placement. 6. Continue propofol and fentanyl for sedation. 7. Continue empiric antimicrobials. 8. Continue appropriate ICU prophylaxis. IMPRESSIONS: 1. Acute on chronic hypoxemic respiratory failure Possibly multifactorial in etiology with decompensated heart failure along with possible pneumonia contributing. The patient has a baseline oxygen requirement of 4 L/min at home along with a history of sarcoidosis and obstructive sleep apnea. She was emergently intubated in the emergency department. At this time, the patient will be continued on empiric broad-spectrum antimicrobials, pending culture results. Will continue attempts, as feasible, add volume optimization with IV diuretics. The patient's FiO2 and PEEP will be weaned as tolerated. Will obtain follow-up ABG this morning. 2. Septic versus cardiogenic shock Continue current supportive care with broad-spectrum antimicrobials and vasopressor support to maintain a mean arterial pressure at or above 65 mmHg. 3. History of heart failure with preserved ejection fraction/recent C. difficile colitis/rheumatoid arthritis/anemia/hypothyroidism Complicates care, management, recovery and prognosis. Continue supportive measures as noted above. Given concerns over OG tube placement and inability to pass distal into stomach, will hold on initiating tube feeding. TIME: 35 minutes of critical care time, independent of procedures, was spent addressing the patient's acute on chronic hypoxemic respiratory failure, septic versus cardiogenic shock, review of all data and collaboration with the care team. Subjective Subjective The patient was seen and examined at the bedside this morning. Events from the last 24 hours have been reviewed. The patient currently has a low-grade fever with a Tmax overnight of 101.1 ?F. She remains on both dobutamine and Levophed to maintain hemodynamic stability. Unfortunately, the patient remains tachycardic this morning. She is sedated on both propofol and fentanyl. White blood cell count is elevated at 15,000. Hemoglobin and platelet count are stable. Potassium is low at 3.2. Creatinine remains within normal limits. Objective Data Objective Data The patient's most recent lab work, culture data and imaging studies have all been personally reviewed. Surface echocardiogram demonstrated an ejection fraction of 15%. Respiratory viral panel was negative. COVID PCR was negative. Blood and sputum cultures are pending. Vital Signs: Vital Signs Temp Pulse Resp BP Pulse Ox O2 Del Method FiO2 100.0 F H 122 H 21 H 109/75 90 Mechanical Ventilator 90 07/15/24 07:00 07/15/24 07:05 07/15/24 07:05 07/15/24 07:00 07/15/24 07:05 07/15/24 07:00 07/15/24 07:05 Oxygen Delivery Method Mechanical Ventilator Weight: 195 lb 12.328 oz Body Mass Index (BMI) 33.4 Intake & Output: Intake and Output for Last 24 Hours 07/13/24 07/14/24 07/15/24 23:59 23:59 23:59 Intake Total 656.72 / 687.78 676.95 / 676.95 Output Total 675 / 675 450 / 450 Balance -18.28 / 12.78 226.95 / 226.95 Lab / Micro Data Attestation: I reviewed the patient's lab results. 07/15/24 03:40 07/15/24 03:40 Labs: Laboratory Results - last 24 hr 07/14/24 11:00: WBC 13.4 H, RBC 3.43 L, Hgb 10.4 L, Hct 33.1 L, MCV 96.5, MCH 30.3, MCHC 31.4 L, RDW Std Deviation 46.5 H, RDW Coeff of Edilma 13.1, Plt Count 428, MPV 9.5, Immature Gran % (Auto) 0.700, Neut % (Auto) 83.8 H, Lymph % (Auto) 6.7 L, [place] % (Auto) 8.0, Eos % (Auto) 0.4, Baso % (Auto) 0.4, Absolute Neuts (auto) 11.2 H, Absolute Lymphs (auto) 0.90, Nucleated RBC % 0, Sodium 133, Potassium 3.8, Chloride 92 L, Carbon Dioxide 28.1, Anion Gap 13, BUN 6, Creatinine 0.53 L, Estim Creat Clear Calc 66.91, Est GFR (MDRD) Non-Af 100, BUN/Creatinine Ratio 11.1, Glucose 189 H, Lactic Acid 2.7 H*, Calcium 9.0, Total Bilirubin 0.54, AST 36 H, ALT 9, Alkaline Phosphatase 152 H, Total Creatine Kinase 53, Troponin T High Sens 38 H D, NT pro BNP II 5922 H, Total Protein 7.1, Albumin 3.1 L, Globulin 4.0, Albumin/Globulin Ratio 0.8 L, Triglycerides 116 07/14/24 12:59: Troponin T Hi Sens 2 Hr 87 H* 07/14/24 14:05: Procalcitonin 0.14 H 07/14/24 15:25: Lactic Acid 1.8, Troponin T Hi Sens 4Hr 151 H*, Urine Color Straw, Urine Clarity Clear, Urine pH 6.0, Ur Specific [place] 1.015, Urine Protein 30 H, Urine Glucose (UA) Normal, Urine Ketones Negative, Urine Occult Blood 50 H, Urine Nitrite Negative, Urine Bilirubin Negative, Urine Urobilinogen Normal, Ur Leukocyte Esterase Negative, Urine RBC 0-5 SEEN, Urine WBC 0-5 SEEN, Ur Squamous Epith Cells 0-5 SEEN, Urine Bacteria 0 SEEN, Hyaline Casts 0-5 SEEN, Fine Granular Casts 0-5 SEEN, Urine Mucus 0 SEEN 07/15/24 03:40: WBC 15.5 H, RBC 3.26 L, Hgb 10.1 L, Hct 31.1 L, MCV 95.4, MCH 31.0, MCHC 32.5, RDW Std Deviation 46.5 H, RDW Coeff of Edilma 13.3, Plt Count 356, MPV 9.4, Immature Gran % (Auto) 0.600, Neut % (Auto) 87.0 H, Lymph % (Auto) 3.1 L, [place] % (Auto) 8.8, Eos % (Auto) 0.0, Baso % (Auto) 0.5, Absolute Neuts (auto) 13.5 H, Absolute Lymphs (auto) 0.48 L, Nucleated RBC % 0, Sodium 136, Potassium 3.2 L, Chloride 94 L, Carbon Dioxide 29.7, Anion Gap 13, BUN 7, Creatinine 0.68 L, Estim Creat Clear Calc 71.60, Est GFR (MDRD) Non-Af 94, BUN/Creatinine Ratio 9.8 L, Glucose 159 H, Calcium 8.4 Micro: Microbiology 07/14/24 13:45 Mucosa - Nasopharyngeal Coronavirus COVID-19 PCR - Final 07/14/24 13:45 Mucosa - Nasopharyngeal Respiratory Panel (PCR) - Final ABG Data ABG results: ABG 07/14/24 11:15 Specimen Type ART Sample Site R Radial pH 7.42 Bicarbonate Actual 32.6 H Total CO2 34 Base Excess 8 H O2 Saturation 94 L O2 % 80.0 ABG pCO2 50.8 H ABG pO2 71 L Respiration Rate 14 O2 Delivery Device Not entered Vent Mode AC Tidal Volume 450.0 Radiography Diagnostic Testing: Radiology Impression Chest X-Ray 07/14/24 10:06 IMPRESSION: There is an ET tube in position 2.3 cm above the level of the rafa, deviated towards the right, similar to the prior. There is an enteric tube in the midline at the level of the diaphragm. There is elevation of the right hemidiaphragm. There are diffuse interstitial and alveolar infiltrates throughout the right and left lung. Reading Location: [facility] Chest X-Ray 07/14/24 10:07 IMPRESSION: There is an ET tube in position 3 cm above the level of the rafa, deviated towards the right. There is an enteric tube in the midline 3.5 cm below the level of the rafa, likely in the esophagus. There are diffuse interstitial and alveolar infiltrates throughout the right and left lung. Reading Location: [facility] Chest CTA 07/14/24 13:07 IMPRESSION: 1. No pulmonary embolism. 2. Lung emphysema/COPD with scattered ground-glass attenuation and partial consolidation of both lungs, likely multifocal pneumonia. Reading Location: [id number] Echocardiogram 07/14/24 13:56 Interpretation Summary The left ventricular ejection fraction is 15 %. The left atrium is moderately enlarged. Normal LV size. Compared to previous study, the left ventricular systolic function has worsened.. Ordering Physician: Dallin Joe Referring Physician: Baldomero Wright Performed By: Meredith Apodaca, JANUSZ, RVT X-Ray 07/15/24 01:20 IMPRESSION: 3 separate images as above. Reading Location: [facility] Rhythm Strip Rhythm Strip: Sinus Rhythm Rate: 100 Physical Exam Const Constitutional Narrative: Intubated, sedated and mechanically ventilated. No ventilator dyssynchrony noted. HEENT normocephalic and head/scalp atraumatic Mouth: endotracheal tube in place and OG tube in place Eyes PERRL and EOMs intact bilaterally Neck supple General: trachea midline and CVC in place Chest inspection of chest normal Resp Effort and Inspection: tachypneic Auscultation: diminished lung sounds Cardio S1 normal heart sound and S2 normal heart sound Rate: tachycardic GI normal to inspection, nondistended, normoactive bowel sounds Extremity no clubbing, cyanosis or edema Skin no rashes or lesions noted Neuro Sensorium / Orientation: sedated on vent Charges/Coding Procedures Hospitalists Procedures: 26993 Critical Care 1st Hr
[2024-07-15] MEDS: Chlorhexidine 15 ML PO ×2 (07:40→20:30)
[2024-07-15] MEDS: Propofol 10MG/Ml 1,000 MG/100 ML Bottle 8 MG CONT INF (07:40)
[2024-07-15] MEDS: Phenylephrine 10 MG in 0.9% Normal Saline (250mL Bag) 249 ML 15 MG CONT INF (08:37)
[2024-07-15] MEDS: Potassium Chloride 10mEq/100mL 10 MEQ/100 ML IV.SOLN. 100 MEQ IV BOLUS ×3 (08:37→10:53)
[2024-07-15 08:38] LABS: Allen Test Positive; Base Excess 15 mmol/L (-2 to +2); Bicarbonate 39.6 mmol/L (22-26); Blood Gas Specimen Type ART; Mode AC; O2 Delivery Device Adult Vent; PEEP 5; PO2 82 mmHG (75-100); RR 18; SITE R Radial; SO2 96 % (95-99); Total Carbon Dioxide 41 mmol/L; pCO2 58.5 mmHg (35-45); pH 7.44 (7.35-7.45)
[2024-07-15] MEDS: Norepinephrine 8 mg/250 mL 0.9% NS 18.8 MG CONT INF (09:35)
[2024-07-15] MEDS: DOBUTamine IV 500 MG in Dextrose 5%-Water (250mL Bag) 210 ML 13.3 MG IV (09:50)
[2024-07-15] MEDS: Phenylephrine 40 mg/250 mL 0.9% NS 48.8 MG CONT INF (10:51)
[2024-07-15] MEDS: fentaNYL drip 100 ML 17.5 MCG CONT INF ×2 (12:00→17:41)
[2024-07-15] MEDS: dexMEDEtomidine 400 MCG in 0.9% Normal Saline (100mL Bag) 96 ML 11.1 MCG CONT INF (12:44)
--- NOTE | 2024-07-15 12:49 | PCM.PN.CARD ---
Subjective Subjective Patient is intubated, sedated. Her heart rate was high this morning on a higher dose of dobutamine. Her dobutamine dose has been decreased. She is also on Levophed and phenylephrine. Objective Data Vital Signs: Vital Signs Temp Pulse Resp BP Pulse Ox O2 Del Method FiO2 101.9 F H 126 H 23 H 104/62 93 Mechanical Ventilator 90 07/15/24 12:00 07/15/24 12:00 07/15/24 12:00 07/15/24 12:30 07/15/24 12:00 07/15/24 12:00 07/15/24 12:00 Oxygen Delivery Method Mechanical Ventilator Weight: 195 lb 12.328 oz Body Mass Index (BMI) 33.4 Intake & Output: Intake and Output for Last 24 Hours 07/13/24 07/14/24 07/15/24 23:59 23:59 23:59 Intake Total 656.72 / 687.78 1685.61 / 1685.61 Output Total 675 / 675 1000 / 1000 Balance -18.28 / 12.78 685.61 / 685.61 Lab / Micro Data 07/15/24 03:40 07/15/24 03:40 Labs: Laboratory Results - last 24 hr 07/14/24 12:59: Troponin T Hi Sens 2 Hr 87 H* 07/14/24 14:05: Procalcitonin 0.14 H 07/14/24 15:25: Lactic Acid 1.8, Troponin T Hi Sens 4Hr 151 H*, Urine Color Straw, Urine Clarity Clear, Urine pH 6.0, Ur Specific [place] 1.015, Urine Protein 30 H, Urine Glucose (UA) Normal, Urine Ketones Negative, Urine Occult Blood 50 H, Urine Nitrite Negative, Urine Bilirubin Negative, Urine Urobilinogen Normal, Ur Leukocyte Esterase Negative, Urine RBC 0-5 SEEN, Urine WBC 0-5 SEEN, Ur Squamous Epith Cells 0-5 SEEN, Urine Bacteria 0 SEEN, Hyaline Casts 0-5 SEEN, Fine Granular Casts 0-5 SEEN, Urine Mucus 0 SEEN 07/15/24 03:40: WBC 15.5 H, RBC 3.26 L, Hgb 10.1 L, Hct 31.1 L, MCV 95.4, MCH 31.0, MCHC 32.5, RDW Std Deviation 46.5 H, RDW Coeff of Edilma 13.3, Plt Count 356, MPV 9.4, Immature Gran % (Auto) 0.600, Neut % (Auto) 87.0 H, Lymph % (Auto) 3.1 L, [place] % (Auto) 8.8, Eos % (Auto) 0.0, Baso % (Auto) 0.5, Absolute Neuts (auto) 13.5 H, Absolute Lymphs (auto) 0.48 L, Nucleated RBC % 0, Sodium 136, Potassium 3.2 L, Chloride 94 L, Carbon Dioxide 29.7, Anion Gap 13, BUN 7, Creatinine 0.68 L, Estim Creat Clear Calc 71.60, Est GFR (MDRD) Non-Af 94, BUN/Creatinine Ratio 9.8 L, Glucose 159 H, Calcium 8.4 Micro: Microbiology 07/14/24 13:45 Mucosa - Nasopharyngeal Coronavirus COVID-19 PCR - Final 07/14/24 13:45 Mucosa - Nasopharyngeal Respiratory Panel (PCR) - Final ABG Data ABG results: ABG 07/15/24 08:35 Specimen Type ART Sample Site R Radial pH 7.44 Bicarbonate Actual 39.6 H Total CO2 41 Base Excess 15 H O2 Saturation 96 O2 % 90.0 ABG pCO2 58.5 H ABG pO2 82 [place] Test Positive Respiration Rate 18 O2 Delivery Device Adult Vent Vent Mode AC Tidal Volume 350.0 POC PEEP 5 Rhythm Strip Rhythm Strip: Sinus Rhythm Rate: 100 Cardiology Labs/Tests 07/14/24 15:25: Lactic Acid 1.8, Urine Color Straw, Urine Clarity Clear, Urine pH 6.0, Ur Specific [place] 1.015, Urine Protein 30 H, Urine Glucose (UA) Normal, Urine Ketones Negative, Urine Occult Blood 50 H, Urine Nitrite Negative, Urine Bilirubin Negative, Urine Urobilinogen Normal, Ur Leukocyte Esterase Negative, Urine RBC 0-5 SEEN, Urine WBC 0-5 SEEN 07/15/24 03:40: WBC 15.5 H, RBC 3.26 L, Hgb 10.1 L, Hct 31.1 L, MCV 95.4, MCH 31.0, MCHC 32.5, Plt Count 356, MPV 9.4, Immature Gran % (Auto) 0.600, Neut % (Auto) 87.0 H, Lymph % (Auto) 3.1 L, [place] % (Auto) 8.8, Eos % (Auto) 0.0, Baso % (Auto) 0.5, Absolute Neuts (auto) 13.5 H, Nucleated RBC % 0, Sodium 136, Potassium 3.2 L, Chloride 94 L, Carbon Dioxide 29.7, Anion Gap 13, BUN 7, Creatinine 0.68 L, Est GFR (MDRD) Non-Af 94, BUN/Creatinine Ratio 9.8 L, Glucose 159 H, Calcium 8.4 07/15/24 08:35: pH 7.44, Bicarbonate Actual 39.6 H, Base Excess 15 H, O2 Saturation 96, ABG pCO2 58.5 H, ABG pO2 82, Kennedy Test Positive Rhythm: EKG: ECHO: Stress Test: Cardiac Cath: PCI: CT Surgery: Holter monitor: EPS: PPM: CXR: Chest CT Scan: Radiography Diagnostic Testing: Radiology Impression Chest CTA 07/14/24 13:07 IMPRESSION: 1. No pulmonary embolism. 2. Lung emphysema/COPD with scattered ground-glass attenuation and partial consolidation of both lungs, likely multifocal pneumonia. Reading Location: [facility] Echocardiogram 07/14/24 13:56 Interpretation Summary The left ventricular ejection fraction is 15 %. The left atrium is moderately enlarged. Normal LV size. Compared to previous study, the left ventricular systolic function has worsened.. Ordering Physician: Dallin Joe Referring Physician: Baldomero Wright Performed By: Meredith Apodaca, RDCS, RVT X-Ray 07/15/24 01:20 IMPRESSION: 3 separate images as above. Reading Location: [facility] Physical Exam Const Constitutional Narrative: Intubated, sedated Resp Resp Narrative: Bilateral air entry. No significant crackles anteriorly or laterally Cardio regular rate Cardio Narrative: Tachycardic with a heart rate in the 120s Assessment & Plan Assessment/Plan (1) Acute on chronic heart failure with reduced ejection fraction (HFrEF, <= 40%) and combined systolic and diastolic dysfunction: PLAN: Appears to be due to a combination of CHF due to LV systolic dysfunction and possible sepsis. Patient is requiring 90% oxygen through the ventilator. Her CVP was apparently 12. She is off Lasix at this time. Agree with current management. If possible, consider titrating propofol down. Explained to the patient's son that patient is very sick and is requiring 3 pressors. (2) Acute respiratory failure with hypoxia and hypercapnia:
--- NOTE | 2024-07-15 13:00 | CASEMGMT ---
Readmission note: Index: 07/04/24-07/09/24. Dx: Diarrhea Current: 07/14/24. Dx: RF, CHF From the index admission, the pt discharged home with her family with an updated oxygen Rx (3L continuous) and an OP PT/OT appt through for 07/15/24. This EVER DELANEY completed the DC f/u phone call with the pt. On 07/12/24, the pt reported that she was doing well and felt that she was progressively getting stronger. Pt stated that she was wearing her oxygen as ordered. Pt reported that she was able to get her new prescriptions and take all of her ordered medications as prescribed. Pt denied any further issues or concerns at that time. However, pt re-presented to [facility] ER on 07/14/24 with SOB that started on 07/13. Per the H&P, the pt was found to be 40% on RA and was intolerant of CPAP and was placed on a nonrebreather mask at 15L, but was only saturating in the 80s. Pt was cyanotic and in respiratory distress and was only able to answer yes or no questions. It was decided for the pt to get intubated, and a central line was placed. Chest XR showed bilateral pulmonary infiltrates suggestive of edema/pneumonia. Subsequently, the pt was admitted to ICU for further management. Moving forward, the DC plan is TBD as today is VD#2. RHETT and SW to follow. Deena ARIAS RN, CM
--- NOTE | 2024-07-15 14:19 | PCM.PN.HOSP ---
Reason for Visit Reason for Visit: Diagnoses Enterocolitis due to Clostridium difficile, not specified as recurrent (07/14/24) Acute on chronic combined systolic (congestive) and diastolic (congestive) heart failure (07/14/24) Acute respiratory failure with hypoxia (07/14/24) Acute respiratory failure with hypercapnia (07/14/24) Acute and chronic respiratory failure with hypoxia (07/14/24) Other specified abnormal findings of blood chemistry (07/14/24) Subjective Subjective Patient was seen and examined today, I talked briefly with pulmonary medicine about her care today. Patient's white count is slightly elevated over yesterday's, she remains on the ventilator at this time and appears in no distress. Objective Data Objective Data Vital Signs: Vital Signs Temp Pulse Resp BP Pulse Ox O2 Del Method FiO2 102.2 F H 128 H 20 H 115/46 L 95 Mechanical Ventilator 100 07/15/24 14:00 07/15/24 14:00 07/15/24 14:00 07/15/24 14:15 07/15/24 14:00 07/15/24 14:00 07/15/24 14:00 Oxygen Delivery Method Mechanical Ventilator Weight: 88.8 kg Body Mass Index (BMI) 33.4 Intake & Output: Intake and Output for Last 24 Hours 07/13/24 07/14/24 07/15/24 23:59 23:59 23:59 Intake Total 656.72 / 687.78 59 / Output Total 675 / 675 1000 / 1000 Balance -18.28 / 12.78 997.59 / 997.59 Lab / Micro Data 07/15/24 03:40 07/15/24 03:40 Labs: Laboratory Results - last 24 hr 07/14/24 14:05: Procalcitonin 0.14 H 07/14/24 15:25: Lactic Acid 1.8, Troponin T Hi Sens 4Hr 151 H*, Urine Color Straw, Urine Clarity Clear, Urine pH 6.0, Ur Specific [place] 1.015, Urine Protein 30 H, Urine Glucose (UA) Normal, Urine Ketones Negative, Urine Occult Blood 50 H, Urine Nitrite Negative, Urine Bilirubin Negative, Urine Urobilinogen Normal, Ur Leukocyte Esterase Negative, Urine RBC 0-5 SEEN, Urine WBC 0-5 SEEN, Ur Squamous Epith Cells 0-5 SEEN, Urine Bacteria 0 SEEN, Hyaline Casts 0-5 SEEN, Fine Granular Casts 0-5 SEEN, Urine Mucus 0 SEEN 07/15/24 03:40: WBC 15.5 H, RBC 3.26 L, Hgb 10.1 L, Hct 31.1 L, MCV 95.4, MCH 31.0, MCHC 32.5, RDW Std Deviation 46.5 H, RDW Coeff of Edilma 13.3, Plt Count 356, MPV 9.4, Immature Gran % (Auto) 0.600, Neut % (Auto) 87.0 H, Lymph % (Auto) 3.1 L, [place] % (Auto) 8.8, Eos % (Auto) 0.0, Baso % (Auto) 0.5, Absolute Neuts (auto) 13.5 H, Absolute Lymphs (auto) 0.48 L, Nucleated RBC % 0, Sodium 136, Potassium 3.2 L, Chloride 94 L, Carbon Dioxide 29.7, Anion Gap 13, BUN 7, Creatinine 0.68 L, Estim Creat Clear Calc 71.60, Est GFR (MDRD) Non-Af 94, BUN/Creatinine Ratio 9.8 L, Glucose 159 H, Calcium 8.4 Micro: Microbiology 07/14/24 13:45 Mucosa - Nasopharyngeal Coronavirus COVID-19 PCR - Final 07/14/24 13:45 Mucosa - Nasopharyngeal Respiratory Panel (PCR) - Final ABG Data ABG results: ABG 07/15/24 08:35 Specimen Type ART Sample Site R Radial pH 7.44 Bicarbonate Actual 39.6 H Total CO2 41 Base Excess 15 H O2 Saturation 96 O2 % 90.0 ABG pCO2 58.5 H ABG pO2 82 Kennedy Test Positive Respiration Rate 18 O2 Delivery Device Adult Vent Vent Mode AC Tidal Volume 350.0 POC PEEP 5 Radiography Diagnostic Testing: Radiology Impression Chest CTA 07/14/24 13:07 IMPRESSION: 1. No pulmonary embolism. 2. Lung emphysema/COPD with scattered ground-glass attenuation and partial consolidation of both lungs, likely multifocal pneumonia. Reading Location: [id number] Echocardiogram 07/14/24 13:56 Interpretation Summary The left ventricular ejection fraction is 15 %. The left atrium is moderately enlarged. Normal LV size. Compared to previous study, the left ventricular systolic function has worsened.. Ordering Physician: Dallin Joe Referring Physician: Baldomero Wright Performed By: Meredith Apodaca, JANUSZ, RVT X-Ray 07/15/24 01:20 IMPRESSION: 3 separate images as above. Reading Location: [id number] Rhythm Strip Rhythm Strip: Sinus Rhythm Rate: 100 Physical Exam Narrative constitutional Narrative: Patient is lightly sedated on the ventilator at this time, she does not her head to some questions from nursing. General Appearance: well kempt and well developed HEENT normocephalic, head/scalp atraumatic and moist oral mucous membranes Eyes conjunctivae normal Neck no JVD and thyroid normal General: trachea midline Resp Resp Narrative: Patient is on the ventilator currently, lung sounds are diminished bilaterally Auscultation: Negative for rales, rhonchi or wheezes Cardio regular rate, regular rhythm, S1 normal heart sound, S2 normal heart sound, no murmurs, no rub and no gallops GI normal to inspection, nondistended, normoactive bowel sounds, soft to palpation, non-tender and non-distended Extremity no clubbing, cyanosis or edema Skin no rashes or lesions noted General Skin Exam: no breakdown Neuro Neuro Narrative: Patient is sedated and on the ventilator Psych Psych Narrative: Patient is sedated and on the ventilator Assessment & Plan Assessment/Plan (1) Acute on chronic heart failure with reduced ejection fraction (HFrEF, <= 40%) and combined systolic and diastolic dysfunction: (2) Acute respiratory failure with hypoxia and hypercapnia: PLAN: Plan 1. Acute on chronic combined respiratory failure secondary to suspected pneumonia with sepsis and congestive heart failure with reduced ejection fraction-continue present care per cardiology and critical care, patient's left ventricular systolic function has worsened since her last echocardiogram in February 2024. #2 acute on chronic systolic congestive heart failure-continue IV Lasix, patient is also on dobutamine #3 septic shock secondary to bilateral pneumonia-patient is currently on Zosyn #4 acute C. difficile infection-patient was recently diagnosed with C. difficile infection, her toxin was negative but her antigen was positive but she was having diarrhea symptoms and abdominal discomfort. Patient was placed on vancomycin at that time and she remains on vancomycin liquid through the NG tube at this time #5 obstructive sleep apnea-complicates care, management, recovery, and prognosis #6 hypothyroidism-patient is currently on Synthroid #7 type 2 diabetes-blood sugars will be monitored, sliding scale insulin will be administered as needed #8 sarcoidosis-complicates care, management, recovery, and prognosis, patient's methotrexate will be held at this time Total clinical time spent by myself addressing patient's medical issues, reviewing all of her data, and collaborating with patient's care team: 50 minutes Charges/Coding Visit Charges Inpatient E&M: 81524 [facility]osp L3
[2024-07-15] MEDS: Phenylephrine 40 mg/250 mL 0.9% NS 56.3 MG CONT INF ×2 (15:33→20:00)
--- NOTE | 2024-07-15 15:57 | CHAPLAIN ---
Type of Pastoral Visit _x__ Initial Visit ___ Follow-up Visit ___ On-call Visit ___ General Patient Visit ___ Spiritual Assessment ___ Family Conference ___ Bereavement ___ Rapid Response ___ Code Blue ___ Other (describe below) Pastoral Care Referral From ___ Patient _x__ Family _x__ Nurse ___ Physician ___ Examiner Of Currency ___ Election Clerk ___ Other (describe below) Sacrament/Intervention _x__ Active listening ___ Anointing ___ Gnosticism ___ Bereavement ___ Communion ___ Marie exploration ___ ___ Life review _x__ Prayer ___ Reconciliation ___ Sacrament of Sick _x__ Supportive presence ___ Wedding ___ Other (describe below) Pastoral Comments patient is sedated on the ventilator; pt has spouse and a niece in the room at this time; spouse is able to explain situation and recent health concerns of the patient; pt has limited family support but does attend a local christian although it is small too; spouse welcomes support and prayer;
[2024-07-15] MEDS: Norepinephrine 8 mg/250 mL 0.9% NS 52.5 MG CONT INF (16:30)
[2024-07-15] MEDS: Dexmedetomidine 1,000 mcg in 0.9% NS 240 mL 24.4 MCG CONT INF (16:53)
[2024-07-15 17:17] LABS: Allen Test Positive; Base Excess 9 mmol/L (-2 to +2); Bicarbonate 33.6 mmol/L (22-26); Blood Gas Specimen Type ART; Mode AC; O2 Delivery Device Adult Vent; PEEP 8; PO2 66 mmHG (75-100); RR 18; SITE R Radial; SO2 92 % (95-99); Total Carbon Dioxide 35 mmol/L; pCO2 54.7 mmHg (35-45)
[2024-07-15] MEDS: 0.9% Normal Saline (500mL Bag) 500 ML 999 ML IV (18:30)
[2024-07-15] MEDS: Vasopressin 20 UNITS in 0.9% Normal Saline (50mL Bag) 24 ML 3 UNITS CONT INF ×2 (18:37→22:08)
[2024-07-15] MEDS: Vancomycin HCl 2,000 MG in 0.9% Normal Saline (500mL Bag) 500 ML 250 MG IV (20:03)
--- NOTE | 2024-07-15 20:23 | PHA.PHARE_ITS ---
Consult Antibiotic Management Pharmacy has been consulted to manage selected antibiotic: Vancomycin Type of Intervention Type of Consult: New start Suspected Infection Suspected Infection: Sepsis and Pneumonia Prior Doses of Antibiotics Prior Doses of Antibiotics Received/Current Regimen: Vancomycin 2000 mg IV x 1 given 07/15/24 @ 2002. Patient is also on piperacil chai/tazobactam 3.375 grams Q8H Labs Labs: Sodium 136 mmol/L (133-145) 07/15/24 03:40 Potassium 3.2 mmol/L (3.3-5.1) L 07/15/24 03:40 Chloride 94 mmol/L (98-108) L 07/15/24 03:40 Carbon Dioxide 29.7 mmol/L (21.0-32.0) 07/15/24 03:40 Anion Gap 13 (5-15) 07/15/24 03:40 BUN 7 mg/dL (4-19) 07/15/24 03:40 Creatinine 0.68 mg/dL (0.70-1.20) L 07/15/24 03:40 Est GFR (MDRD) Non-Af 94 (>60) 07/15/24 03:40 BUN/Creatinine Ratio 9.8 RATIO (10-20) L 07/15/24 03:40 Glucose 159 mg/dL (70-99) H 07/15/24 03:40 Microbiology Microbiology: Microbiology 07/14/24 13:45 Sputum, Induced/[place]uk[place] Gram Stain - Final 07/14/24 13:45 Mucosa - Nasopharyngeal Coronavirus COVID-19 PCR - Final 07/14/24 13:45 Mucosa - Nasopharyngeal Respiratory Panel (PCR) - Final Dosing Weight Weight used for dosin kg Estimated Creatinine Clearance Estimated Creatinine Clearance: ~ 72 Goal Trough Goal Trough: 15-20 mcg/mL Pharmacy Plan for Drug Dosing Pharmacy Plan for Drug Dosing: Vancomycin 2000 mg IV x 1 followed by 1250 mg Q12H. Pharmacy Service will continue to monitor and adjust dosing as required. Follow-Up Labs Follow-Up Labs: Trough: Vancomycin Date/Time Labs Ordered Labs to be done on [date and time ordered]: 07/17/24 @ 9315
[2024-07-15] MEDS: Nortriptyline 25 MG Capsule PO (20:30)
[2024-07-15] MEDS: Epinephrine (1 mg/ml) 1 MG in 0.9% Normal Saline (250mL Bag) 250 ML 133.7 MG CONT INF (21:25)
[2024-07-15] MEDS: Norepinephrine 8 mg/250 mL 0.9% NS 56.3 MG CONT INF (21:31)
[2024-07-15 21:41] LABS: Base Excess -7 mmol/L (-2 to +2); Bicarbonate 22.5 mmol/L (22-26); Blood Gas Specimen Type ART; Mode AC; O2 Delivery Device Adult Vent; PEEP 8; PO2 20 mmHG (75-100); RR 18; SITE R Brach; SO2 17 % (95-99); Time Given 21:37:25; Total Carbon Dioxide 25 mmol/L; pH 7.09 (7.35-7.45)
--- NOTE | 2024-07-15 21:47 | RAD_ITS ---
PROCEDURE: CHEST 1 VIEW (PORTABLE) 07/15/2024 REASON FOR EXAM: HYPOXIA TECHNIQUE: Frontal view of the chest. COMPARISON: None FINDINGS: Hardware: Endotracheal tube, with the tip 2.7 cm from the rafa. Feeding tube with the side port of the mid esophagus and the tip just superior to the GE junction and should be advanced approximately 10 cm. Heart: Cardiomegaly Lungs: Bilateral interstitial thickening. Bibasilar atelectasis. No pneumothorax. No pleural effusion. Bones: Degenerative changes are identified within the thoracic spine. Other: RAD/Chest 1 View (Portable) IMPRESSION: See above Reading Location: [facility]
[2024-07-15] MEDS: Sodium Bicarbonate 8.4% 50 ML Syringe 100 MEQ IV (21:58)
[2024-07-15] MEDS: Epinephrine (1 mg/ml) 1 MG in 0.9% Normal Saline (250mL Bag) 250 ML 267.5 MG CONT INF ×2 (22:07→23:14)
[2024-07-15 22:23] LABS: Base Excess -7 mmol/L (-2 to +2); Bicarbonate 21.2 mmol/L (22-26); Blood Gas Specimen Type ART; Mode AC; O2 Delivery Device Adult Vent; PEEP 8; PO2 133 mmHG (75-100); RR 24; SITE L Radial; SO2 98 % (95-99); Total Carbon Dioxide 23 mmol/L; pCO2 52.7 mmHg (35-45); pH 7.21 (7.35-7.45)
[2024-07-15] MEDS: Dextrose 10%-Water 250 ML 999 ML IV (22:30)
--- NOTE | 2024-07-15 22:40 | NURSING ---
Blood glucose 43, D10 250 mL hung at 999 ml/hr per hypoglycemic protocol.
[2024-07-15 22:50] LABS: Absolute Neutrophil Count 13.7 X10^3/uL (2.0-7.7); Basophil# 0.03 X10^3/uL; Basophil% 0.2 % (0-1); Hematocrit 33.5 % (37-47); Hemoglobin 10.1 g/dL (12.0-15.0); Lymphocyte % 6.3 % (19-41); Mean Corp Hgb Conc 30.1 g/dL (32-36); Mean Corpuscular Hgb 30.7 pg (27.0-32.0); Mean Corpuscular Volume 101.8 fL (81-99); Mean Platelet Vol. 9.6 fl (6.2-12.0); Monocyte# 0.93 X10^3/uL; Monocyte% 5.8 % (0-10); NRBC Flagged by Analyzer 0.1 % (0-5); Neutrophil # 13.69 X10^3/uL (2.7-7.7); Neutrophil % 86.1 % (47-70); Platelet Count 371 K/mm3 (150-450); RBC Distribution Width CV 13.6 % (11.6-14.6); RBC Distribution Width SD 50.8 fl (35.1-43.9); Red Blood Count 3.29 M/mm3 (4.2-5.4); White Blood Count 15.9 K/mm3 (4.4-11.0)
--- NOTE | 2024-07-15 22:57 | EKG12_ITS ---
Test Reason : tachycardia Blood Pressure : */* mmHG Vent. Rate : 131 BPM Atrial Rate : 131 BPM P-R Int : 168 ms QRS Dur : 92 ms QT Int : 272 ms P-R-T Axes : 14 -71 18 degrees QTcB Int : 401 ms Sinus tachycardia with Premature supraventricular complexes Left axis deviation Inferior infarct , age undetermined Cannot rule out Anterior infarct , age undetermined Abnormal ECG When compared with ECG of 14-Jul-2024 13:19, MANUAL COMPARISON REQUIRED DATA IS UNCONFIRMED Confirmed by SHARAD MCCABE, TOSIN ([id number]), editor dictionary SARA FORREST ([id number]) on 07/19/2024 11:50:57 AM Referred By: Confirmed By: TOSIN OROURKE MD
[2024-07-15 23:21] LABS: ALB/GLOB Ratio 0.7 RATIO (0.9-2.4); AST(SGOT) 264 U/L (<=31); Alanine Aminotransfer ALT/SGPT 69 U/L (<=34); Albumin, Serum 2.4 g/dL (3.4-4.8); Alkaline Phosphatase 197 U/L (35-104); Anion Gap 25 (5-15); BUN 8 mg/dL (4-19); BUN/Creat Ratio 8.9 RATIO (10-20); Calcium,Total 7.7 mg/dL (7.6-11.0); Carbon Dioxide 16.2 mmol/L (21.0-32.0); Chloride 101 mmol/L (98-108); Creatinine, Serum 0.89 mg/dL (0.70-1.20); EST Glomerular Filtration Rate 70 (>60); Estimated Creatinine Clearance 64.36 ml/min (50-250); Globulin 3.4 g/dL (2.2-4.2); Glucose 43 mg/dL (70-99); Potassium 4.3 mmol/L (3.3-5.1); Protein, Total 5.7 g/dL (5.9-8.4); Sodium Level 142 mmol/L (133-145); Total Bilirubin 0.72 mg/dL (0.00-1.30)
[2024-07-15 23:23] LABS: Bedside Glucose 43 mg/dL (74-106)
[2024-07-15 23:23] LABS: Bedside Glucose 170 mg/dL (74-106)
[2024-07-15] MEDS: Phenylephrine 40 mg/250 mL 0.9% NS 67.5 MG CONT INF (23:57)
[2024-07-16] VITALS (32 sets, daily range): BP systolic 46–126; BP diastolic 23–100; PULSE 124–128; RESP 12–31; TEMP 36.3–37.6; O2SAT 93–98; BMI 35.6
[2024-07-16] MEDS: Epinephrine (1 mg/ml) 1 MG in 0.9% Normal Saline (250mL Bag) 250 ML 267.5 MG CONT INF (00:18)
[2024-07-16] MEDS: Epinephrine (1 mg/ml) 1 MG in 0.9% Normal Saline (250mL Bag) 250 ML 534.9 MG CONT INF (01:00)
[2024-07-16] MEDS: CHLORHEXIDINE GLUC 2% CLOTH 1 EACH TOWELETTE TOPICAL (01:02)
[2024-07-16] MEDS: Epinephrine (1 mg/ml) 1 MG in 0.9% Normal Saline (250mL Bag) 250 ML 668.7 MG CONT INF (01:30)
--- NOTE | 2024-07-16 01:33 | NURSING ---
Called Don, updated on patient's critical status. Discussed plan of care goals and asked if he would come in to see patient. notified that patient's family is on their way in. He will come up and speak with family when they arrive.
[2024-07-16 01:47] LABS: Allen Test Positive; Base Excess -18 mmol/L (-2 to +2); Bicarbonate 12.3 mmol/L (22-26); Blood Gas Specimen Type ART; Mode AC; O2 Delivery Device Adult Vent; PEEP 8; PO2 104 mmHG (75-100); RR 24; SITE L Radial; SO2 95 % (95-99); Total Carbon Dioxide 14 mmol/L; pCO2 43.9 mmHg (35-45); pH 7.05 (7.35-7.45)
[2024-07-16] MEDS: Epinephrine (1 mg/ml) 1 MG in 0.9% Normal Saline (250mL Bag) 250 ML 936.1 MG CONT INF ×2 (01:56→02:13)
[2024-07-16] MEDS: Norepinephrine 8 mg/250 mL 0.9% NS 56.3 MG CONT INF ×2 (01:59→03:28)
[2024-07-16] MEDS: Sodium Bicarbonate 8.4% 50 ML Syringe 100 MEQ IV (01:59)
[2024-07-16] MEDS: 0.9% Saline Lock 10 ML Syringe IV ×4 (02:03→06:45)
--- NOTE | 2024-07-16 02:05 | NURSING ---
and this RN at bedside with multiple family members, including Don. He explained patient's critical situation and what would happen when she coded. Family at this time is requesting that she remain a full code and that everything be done to keep her alive.
[2024-07-16] MEDS: fentaNYL drip 100 ML 12.5 MCG CONT INF (02:20)
--- NOTE | 2024-07-16 02:20 | NURSING ---
Unable to titrate epinephrine gtt beyond 0.7 mcg/kg/min because it would be running at >999 mL/hr, which is beyond the capability of the IV pumps. Pharmacy consulted and they will make a higher concentration of drip so we can run it at a higher rate.
[2024-07-16] MEDS: EPINEPHRINE CONT INF ×7 (02:34→06:49)
[2024-07-16] MEDS: NORMAL SALINE 0.9% CONT INF ×7 (02:34→06:49)
[2024-07-16 03:19] LABS: Absolute Lymphocyte Count 0.38 X10^3/uL (0.83-4.51); Absolute Neutrophil Count 11.7 X10^3/uL (2.0-7.7); Basophil# 0.03 X10^3/uL; Basophil% 0.2 % (0-1); Hematocrit 33.2 % (37-47); Hemoglobin 9.6 g/dL (12.0-15.0); Lymphocyte # 0.38 X10^3/ul (0.83-4.51); Lymphocyte % 2.9 % (19-41); Mean Corp Hgb Conc 28.9 g/dL (32-36); Mean Corpuscular Hgb 30.5 pg (27.0-32.0); Mean Corpuscular Volume 105.4 fL (81-99); Mean Platelet Vol. 9.3 fl (6.2-12.0); Monocyte# 0.76 X10^3/uL; Monocyte% 5.8 % (0-10); NRBC Flagged by Analyzer 0.2 % (0-5); Neutrophil # 11.68 X10^3/uL (2.7-7.7); Neutrophil % 89.6 % (47-70); POSITIVE DIFFERENTIAL YES; POSITIVE MORPHOLOGY YES; Platelet Count 256 K/mm3 (150-450); RBC Distribution Width CV 13.7 % (11.6-14.6); RBC Distribution Width SD 52.6 fl (35.1-43.9); Red Blood Count 3.15 M/mm3 (4.2-5.4)
[2024-07-16 03:36] LABS: Differential Indicated SCAN CRITERIA MET
[2024-07-16] MEDS: Phenylephrine 40 mg/250 mL 0.9% NS 67.5 MG CONT INF (03:50)
[2024-07-16] MEDS: Dextrose 10%-Water 250 ML 999 ML IV (03:55)
[2024-07-16 04:02] LABS: ALB/GLOB Ratio 0.8 RATIO (0.9-2.4); AST(SGOT) 1155 U/L (<=31); Alanine Aminotransfer ALT/SGPT 305 U/L (<=34); Albumin, Serum 2.2 g/dL (3.4-4.8); Alkaline Phosphatase 207 U/L (35-104); Anion Gap 31 (5-15); BUN 8 mg/dL (4-19); BUN/Creat Ratio 8.1 RATIO (10-20); Calcium,Total 7.4 mg/dL (7.6-11.0); Carbon Dioxide 12.5 mmol/L (21.0-32.0); Chloride 107 mmol/L (98-108); Creatinine, Serum 1.03 mg/dL (0.70-1.20); EST Glomerular Filtration Rate 59 (>60); Estimated Creatinine Clearance 55.61 ml/min (50-250); Globulin 2.9 g/dL (2.2-4.2); Glucose 24 mg/dL (70-99); Potassium 4.1 mmol/L (3.3-5.1); Protein, Total 5.2 g/dL (5.9-8.4); Sodium Level 151 mmol/L (133-145); Total Bilirubin 1.06 mg/dL (0.00-1.30)
[2024-07-16] MEDS: Dexmedetomidine 1,000 mcg in 0.9% NS 240 mL 24.4 MCG CONT INF (04:32)
[2024-07-16] MEDS: Dextrose 10%-Water 250 ML 40 ML IV (04:35)
[2024-07-16] MEDS: Vancomycin 125 MG/5 ML Susp PO.SYRINGE PO (04:46)
[2024-07-16] MEDS: Levothyroxine 75 MCG Tablet PO (04:46)
[2024-07-16] MEDS: Heparin Injection (Vial) 5,000 UNIT/ML VIAL 5000 UNIT SC (04:46)
[2024-07-16] MEDS: Piperacil/Tazobactam 3.375 GM in 0.9% Normal Saline (50mL MB+) 50 ML IV (04:47)
[2024-07-16 05:44] LABS: Lactic Acid 17.3 mmol/L (0.0-2.0)
[2024-07-16] MEDS: Vancomycin HCl 2,000 MG in 0.9% Normal Saline (500mL Bag) 500 ML 250 MG IV (06:18)
[2024-07-16] MEDS: Vasopressin 20 UNITS in 0.9% Normal Saline (50mL Bag) 24 ML 3 UNITS CONT INF (06:22)
[2024-07-16] MEDS: Hydrocortisone Sod Succinate 100 MG/2 ML Vial 50 MG IV (06:45)
[2024-07-16 06:47] LABS: Bedside Glucose 71 mg/dL (74-106)
[2024-07-16] MEDS: Epinephrine (SHOCK) 16 mg in 0.9% NS 250 mL 176.8 MG CONT INF (07:15)
--- NOTE | 2024-07-16 07:21 | NURSING ---
Patient's Don came out to the desk and told this RN that they were ready to withdraw care. He confirmed that they would like us to stop the medications and take her off the ventilator and then make her comfortable. Called Dr. De La Torre, he stated he will be there in 15 minutes. He said to make her a DNRCC and he will come talk to the family when he arrives and then we can withdraw care. Don in agreement with this plan, expresses understanding.
--- NOTE | 2024-07-16 07:55 | NURSING ---
Dr. De La Torre and respiratory at bedside. Pt extubated, IV drips stopped, IV morphine and ativan given. Family at bedside. Absence of heart sounds and respirations. Confirmed with Dr. De La Torre, time of 0750.
[2024-07-16] MEDS: Morphine 4 MG/ML Syringe IV (07:58)
[2024-07-16] MEDS: Lorazepam 2 MG/ML WCH Syringe IV (07:58)
[2024-07-16 08:09] LABS: Bedside Glucose 102 mg/dL (74-106)
[2024-07-16 08:09] LABS: Bedside Glucose 55 mg/dL (74-106)
--- NOTE | 2024-07-16 08:11 | PCM.PN.BLA ---
Progress Note I was notified by ICU staff earlier this morning of the patient's worsening clinical status. Discussion was had with the family at the bedside. The decision was made to proceed with initiation of comfort care measures and proceed with terminal extubation. Ultimately, the patient with family at the bedside at approximately 7:50 AM this morning.
--- NOTE | 2024-07-16 08:12 | EXP.PCM_ITS ---
Preliminary Cause of Preliminary Cause of Preliminary Cause of : Asystole secondary to cardiogenic and septic shock due to acute LA and pneumonia Date of Admission: 07/14/24 Date of : 07/16/24 Principle Diagnosis 1. Acute on chronic combined respiratory failure secondary to pneumonia with sepsis and congestive heart failure with reduced ejection fraction due to acute LA with cardiogenic shock- #2 acute on chronic systolic congestive heart failure-continue IV Lasix, patient is also on dobutamine #3 septic shock secondary to bilateral pneumonia-patient is currently on Zosyn #4 acute C. difficile infection-patient was recently diagnosed with C. difficile infection, her toxin was negative but her antigen was positive but she was having diarrhea symptoms and abdominal discomfort. Patient was placed on vancomycin at that time and she remains on vancomycin liquid through the NG tube at this time #5 obstructive sleep apnea-complicates care, management, recovery, and prognosis #6 hypothyroidism-patient is currently on Synthroid #7 type 2 diabetes-blood sugars will be monitored, sliding scale insulin will be administered as needed #8 sarcoidosis-complicates care, management, recovery, and prognosis, patient's methotrexate will be held at this time Problem List: Active and Suspected Problems (Updated 07/14/24 @ 16:[address] Deandre De La Rosa MD) Acute on chronic heart failure with reduced ejection fraction (HFrEF, <= 40%) and combined systolic and diastolic dysfunction (Acute) Elevated troponin (Acute) Acute respiratory failure with hypoxia and hypercapnia (Acute) Hospital Course This 69-year-old white female was seen in the emergency room at [facility] with complaints of shortness of breath which is started the night before. Patient was dyspneic and was cyanotic and in respiratory distress and was only able to answer questions with yes or no, patient's pulse ox in the field was noted to be 40% on room air and she was intolerant of CPAP in the emergency room and was unable to ventilate and the decision was made to intubate the patient and a central line was placed. There is chest x-ray is obtained which revealed bilateral pulmonary infiltrates suggestive of edema and/or pneumonia, labs showed elevated white count, troponin was elevated. Beta natruretic peptide was elevated at 5922. Case was discussed with cardiology and critical care, patient was admitted to the ICU and placed on Zosyn and IV Lasix, patient had blood pressure issues during her stay in the ICU, maximal pressor agents were used to try to support the patient's blood pressure without success. Family changed the patient's CODE STATUS to comfort care, on the morning of 07/16/2024, at 7:50 AM, patient was pronounced .
[2024-07-16 08:20] LABS: Reflex Lactate? Y
== END 2024-07-16 07:50 | DRG 871 ==
LOC: ED 12:34 → ICU 12:53 → ED 13:11 → ICU 13:12
PROVIDERS: Internal Medicine; Internal Medicine Critical Care Medicine; Admitting Provider Internal Medicine; Emergency Provider Emergency Medicine; PCP Family Medicine; Visit Provider Internal Medicine
DX: A41.9 Sepsis, unspecified organism (principal); J96.22 Acute and chronic respiratory failure with hypercapnia; R65.21 Severe sepsis with septic shock; I50.23 Acute on chronic systolic (congestive) heart failure; J96.21 Acute and chronic respiratory failure with hypoxia; J18.9 Pneumonia, unspecified organism; I24.89 Other forms of acute ischemic heart disease; A04.72 Enterocolitis due to Clostridium difficile, not specified as recurrent; I11.0 Hypertensive heart disease with heart failure; M06.9 Rheumatoid arthritis, unspecified; G47.33 Obstructive sleep apnea (adult) (pediatric); D86.9 Sarcoidosis, unspecified; Z11.52 Encounter for screening for COVID-19; Z82.49 Family history of ischemic heart disease and other diseases of the circulatory system; Z90.710 Acquired absence of both cervix and uterus; Z86.16 Personal history of COVID-19; Z79.890 Hormone replacement therapy; R42 Dizziness and giddiness
CPT/HCPCS: 31500; 31720; 36556; 36600; 51702; 71045; 71275; 74018; 80048; 80053; 81001; 82550; 82803; 82962; 83605; 83880; 84145; 84478; 84484; 85025; 87040; 87070; 87205; 87633; 87635; 93005; 93308; 94003; 97802; 97803; 99252; 99285; Q9957; Q9967; A4216; C1751; C8924; G0463; J1938